=== PATIENT | male | born 1950 | race Caucasian/White ===

== ENCOUNTER → 2018-05-05 | Outpatient (REF) | payer MEDICARE, MEDICAID | LOC: M LAB REF 17:00 | DX: E11.621 Type 2 diabetes mellitus with foot ulcer (principal) | CPT/HCPCS: 87186 ==

== ENCOUNTER → 2018-08-12 | Outpatient (REF) | payer MEDICARE, MEDICAID | LOC: M LAB REF 14:47 | DX: R19.7 Diarrhea, unspecified (principal) | CPT/HCPCS: 87507 ==

== ENCOUNTER 2018-09-02 20:38 | Emergency (ER) | payer MEDICARE, MEDICAID ==
[~2018-09-02] VITALS: Ht 165.1 cm; Wt 110.0 kg
[2018-09-02] MEDS ORDERED: LYRI150C PO (21:46)
[2018-09-02] MEDS ORDERED: DULO1CAP3 PO (21:47)
[2018-09-02] MEDS ORDERED: LANTINJ4 SC (21:48)
[2018-09-02] MEDS ORDERED: OMEP20CA3 PO (21:48)
[2018-09-02 21:49] LABS: BASO % 0.4 % (0.0-1.0); EOS # 0.1 10^3/uL (0.0-0.50); EOS % 1.6 % (0.0-3.0); HEMATOCRIT 41.6 % (42.0-52.0); LYMPH # 1.4 10^3/uL (1.5-4.5); LYMPH % 19.9 % (24.0-44.0); MEAN CORPUSCULAR HEMOGLOBIN 30.5 pg (27.0-33.0); MEAN CORPUSCULAR HGB CONC 33.7 g/dl (32.0-36.5); MEAN CORPUSCULAR VOLUME 90.6 fl (80.0-96.0); MONO # 0.5 10^3/uL (0.0-0.8); MONO % 7.4 % (0.0-5.0); NEUTROPHILS # 4.9 10^3/uL (1.8-7.7); NEUTROPHILS % 70.4 % (36.0-66.0); PLATELET COUNT, AUTOMATED 164 10^3/uL (150-450); RED BLOOD COUNT 4.59 10^6/uL (4.30-6.10)
[2018-09-02] MEDS ORDERED: ZANTTAB PO (21:49)
[2018-09-02] MEDS ORDERED: BUPR1TAB52 PO (21:51)
[2018-09-02] MEDS ORDERED: METO1TAB7 PO (21:51)
[2018-09-02] MEDS ORDERED: BUPR50TA PO (21:52)
[2018-09-02] MEDS ORDERED: ESCI10TA2 PO (21:53)
[2018-09-02] MEDS ORDERED: ELIQ2.5T PO (21:53)
[2018-09-02] MEDS ORDERED: TRAM50TA2 PO (21:54)
[2018-09-02] MEDS ORDERED: FLOM0.4C39 PO (21:54)
[2018-09-02] MEDS ORDERED: AMIO200T37 PO (21:55)
[2018-09-02 22:01] LABS: INR 1.29; PARTIAL THROMBOPLASTIN TIME 30.9 SECONDS (25.4-37.6); PROTHROMBIN TIME 16.3 SECONDS (12.1-14.4)
[2018-09-02 22:31] LABS: BLOOD UREA NITROGEN 23 MG/DL (7-18); CALCIUM LEVEL 8.3 MG/DL (8.8-10.2); CARBON DIOXIDE LEVEL 26 MEQ/L (21-32); CHLORIDE LEVEL 105 MEQ/L (98-107); CPK CREATINE PHOSPHOKINASE 104 U/L (39-308); CREATININE FOR GFR 1.67 MG/DL (0.70-1.30); GLOMERULAR FILTRATION RATE 43.6 (>49); GLUCOSE, FASTING 82 MG/DL (70-100); MB/CK RELATIVE INDEX 2.69 (< OR =4); POTASSIUM SERUM 4.1 MEQ/L (3.5-5.1); SODIUM LEVEL 140 MEQ/L (136-145); TROPONIN I < 0.02 NG/ML (< 0.10)
[2018-09-02 23:04] LABS: ABG BASE EXCESS -0.4 (-2.0-2.0); ABG O2 SATURATION 95.2 % (95.0-99.0); ABG PARTIAL PRESSURE CO2 38.9 mmHg (35.0-45.0); ABG PARTIAL PRESSURE O2 73.1 mmHg (75.0-100.0); ABG STANDARD HCO3 24.1 MEQ/L (22.0-26.0); ABG TOTAL CO2 25.2 MEQ/L (23.0-31.0); ABG pH (ARTERIAL) 7.409 UNITS (7.350-7.450)
[2018-09-03] MEDS ORDERED: MORPHINE 2 MG/ML 1ML SYRINGE (J2270) IV ONE
--- NOTE | 2018-09-03 01:50 | REP ---
Clinical: Acute chest pain . Comparison: 10/10/2014 . Findings: The mediastinum and cardiac silhouette are stable and within normal limits for portable technique. The lung sevilla are clear without acute consolidation, effusion, or pneumothorax. Skeletal structures are intact. Impression: No acute cardiopulmonary process appreciated. Electronically Signed by Donnie Torrez MD 09/03/2018 01:41 A
[2018-09-03 01:51] LABS: CPK CREATINE PHOSPHOKINASE 96 U/L (39-308); TROPONIN I < 0.02 NG/ML (< 0.10)
[2018-09-03 02:15] VITALS: BP 143/77
[2018-09-03] MEDS ORDERED: traMADol 50 MG TAB (BULK 4 TAB ED) PO ONE (02:15)
--- NOTE | 2018-09-04 12:30 | ECGEPIP ---
Stationary ECG Study [facility] - ED Test Date: 2018-09-02 Pat Name: ITZ OLMOS Department: Room: - Gender: M [employer]: alejandra : 1950 Requested By: KALE CAMACHO Order Number: [id number] Reading MD: Erika Iraheta Measurements Intervals [place] Rate: 67 P: 32 MO: 209 QRS: -30 QRSD: 166 T: 29 QT: 480 QTc: 509 Interpretive Statements SINUS RHYTHM BORDERLINE LEFT AXIS DEVIATION RIGHT BUNDLE BRANCH BLOCK cw 10/10/14 rate increased new rbbb Electronically Signed On 09-04-2018 12:29:43 EST by Erika Iraheta
--- NOTE | 2018-09-04 12:32 | ECGEPIP ---
Stationary ECG Study [facility] - ED Test Date: 2018-09-03 Pat Name: ITZ OLOMS Department: Room: - Gender: M [employer]: : 1950 Requested By: KALE CAMACHO Order Number: [id number] Reading MD: Erika Iraheta Measurements Intervals [place] Rate: 72 P: 64 AR: 217 QRS: -23 QRSD: 168 T: 23 QT: 460 QTc: 507 Interpretive Statements SINUS RHYTHM WITH FIRST DEGREE AV BLOCK WITH OCCASIONAL SUPRAVENTRICULAR AR PREMATURE COMPLEXES BORDERLINE LEFT AXIS DEVIATION RIGHT BUNDLE BRANCH BLOCK 09/02/18 RATE INCREASED Electronically Signed On 09-04-2018 12:32:08 EST by Erika Iraheta
== END 2018-09-03 02:26 | disposition home or self-care (01) ==
LOC: EDBD 20:38 → M ED 20:38
DX: R07.89 Other chest pain (principal); I48.91 Unspecified atrial fibrillation; K21.9 Gastro-esophageal reflux disease without esophagitis; I10 Essential (primary) hypertension; E11.9 Type 2 diabetes mellitus without complications
CPT/HCPCS: 36600; 71045; 80048; 82550; 82553; 82803; 84484; 85025; 85610; 85730; 93005; 96374; 99285; J2270

== ENCOUNTER 2018-09-27 22:06 | Inpatient (IN) | payer MEDICARE, MEDICAID ==
[~2018-09-27] VITALS: Ht 165.1 cm; Wt 126.6 kg
[~2018-09-27 22:06] MED LIST: AMIO200T37 PO; BUPR1TAB52 PO; BUPR50TA PO; DULO1CAP3 PO; ELIQ2.5T PO; ESCI10TA2 PO; FLOM0.4C39 PO; LANTINJ4 SC; LYRI150C PO; METO1TAB7 PO; OMEP20CA3 PO; TRAM50TA2 PO; ZANTTAB PO
[2018-09-27] MEDS: MORPHINE 2 MG/ML 1ML SYRINGE (J2270) IV PRN (22:53)
[2018-09-27 22:55] LABS: BASO % 0.2 % (0.0-1.0); EOS # 0.1 10^3/uL (0.0-0.50); EOS % 1.5 % (0.0-3.0); HEMATOCRIT 42.1 % (42.0-52.0); HEMOGLOBIN 14.5 g/dl (13.5-17.5); LYMPH # 1.7 10^3/uL (1.5-4.5); LYMPH % 20.8 % (24.0-44.0); MEAN CORPUSCULAR HEMOGLOBIN 30.7 pg (27.0-33.0); MEAN CORPUSCULAR HGB CONC 34.4 g/dl (32.0-36.5); MEAN CORPUSCULAR VOLUME 89.2 fl (80.0-96.0); MONO # 0.5 10^3/uL (0.0-0.8); MONO % 6.5 % (0.0-5.0); NEUTROPHILS # 5.8 10^3/uL (1.8-7.7); NEUTROPHILS % 70.5 % (36.0-66.0); PLATELET COUNT, AUTOMATED 145 10^3/uL (150-450); RED BLOOD COUNT 4.72 10^6/uL (4.30-6.10); WHITE BLOOD COUNT 8.2 10^3/uL (4.0-10.0)
[2018-09-27 23:10] LABS: INR 1.34; PARTIAL THROMBOPLASTIN TIME 29.5 SECONDS (25.4-37.6); PROTHROMBIN TIME 16.7 SECONDS (12.1-14.4)
--- NOTE | 2018-09-27 23:26 | REPVR ---
EXAM: CT Head Without Contrast EXAM DATE/TIME: 09/27/2018 10:25 PM CLINICAL HISTORY: 67 years old, male; Injury or trauma; Fall; Additional info: Fall, anticoagulated TECHNIQUE: Axial computed tomography images of the head/brain without contrast. All CT scans at this facility use at least one of these dose optimization techniques: automated exposure control; mA and/or kV adjustment per patient size (includes targeted exams where dose is matched to clinical indication); or iterative reconstruction. COMPARISON: No relevant prior studies available. FINDINGS: Brain: There is no evidence of intracranial bleed. 5 mm low-density right thalamus probably the result of old lacunar infarct. Dunn-white differentiation appears preserved. Ventricles: Normal ventricles. Bones/joints: There is no evidence of fracture. Sinuses: Clear paranasal sinuses. Small mucus retention cyst right sphenoid sinus. Mastoid air cells: Clear mastoid air cells. Soft tissues: Normal. IMPRESSION: 1. No evidence of fracture. 2. No evidence of bleed. Electronically signed by: Indra Feliciano On 09/27/2018 23:25:43 PM
[2018-09-27 23:32] LABS: BLOOD UREA NITROGEN 27 MG/DL (7-18); CALCIUM LEVEL 8.5 MG/DL (8.8-10.2); CARBON DIOXIDE LEVEL 23 MEQ/L (21-32); CHLORIDE LEVEL 101 MEQ/L (98-107); CPK CREATINE PHOSPHOKINASE 70 U/L (39-308); CREATININE FOR GFR 1.69 MG/DL (0.70-1.30); GLUCOSE, FASTING 423 MG/DL (70-100); MB/CK RELATIVE INDEX 2.57 (< OR =4); POTASSIUM SERUM 4.3 MEQ/L (3.5-5.1); SODIUM LEVEL 136 MEQ/L (136-145); TROPONIN I < 0.02 NG/ML (< 0.10)
--- NOTE | 2018-09-27 23:32 | REPVR ---
EXAM: CT Cervical Spine Without Contrast EXAM DATE/TIME: 09/27/2018 10:25 PM CLINICAL HISTORY: 67 years old, male; Injury or trauma; Fall; Initial encounter; Concussion /head injury; Additional info: Fall, anticoagulated TECHNIQUE: Axial computed tomography images of the cervical spine without intravenous contrast. All CT scans at this facility use at least one of these dose optimization techniques: automated exposure control; mA and/or kV adjustment per patient size (includes targeted exams where dose is matched to clinical indication); or iterative reconstruction. Coronal and sagittal reformatted images were created and reviewed. COMPARISON: No relevant prior studies available. FINDINGS: Vertebrae: The cervical vertebra appear in alignment. The facet joints appear in alignment. There is no evidence of fracture. The dens appears intact and the lateral masses of C1 appear symmetric. There is scoliosis at the junction of the cervical spine with thoracic spine. There is no evidence of fracture. Discs/Spinal canal/Neural foramina: Is moderate posterior osteophyte formation and moderate narrowing of the disc spaces C4-C5 C5-C6 and C6-C7. Soft tissues: No soft tissue swelling. Lungs: Clear apical portions of the lung. IMPRESSION: No evidence of fracture. Electronically signed by: Indra Feliciano On 09/27/2018 23:32:01 PM
[2018-09-27] MEDS ORDERED: HumaLOG INSULIN (NovoLOG) PER UNIT SC STA (23:54)
[2018-09-28] VITALS (7 sets, daily range): BP systolic 92–140; BP diastolic 57–73
[2018-09-28] MEDS ORDERED: ELIQ2.5T PO (00:32)
[2018-09-28] MEDS ORDERED: DULO1CAP3 PO (00:32)
[2018-09-28] MEDS ORDERED: LYRI150C PO (00:36)
[2018-09-28] MEDS ORDERED: VITA100066 PO (00:36)
[2018-09-28] MEDS ORDERED: MAGN250T7 PO (00:36)
[2018-09-28] MEDS ORDERED: ESCI20TA PO (00:36)
[2018-09-28] MEDS ORDERED: BUPR1TAB52 PO (00:36)
[2018-09-28] MEDS ORDERED: RANI15TA PO (00:36)
[2018-09-28] MEDS ORDERED: FLOM0.4C39 PO (00:36)
[2018-09-28] MEDS ORDERED: VICT18IN SC (00:36)
[2018-09-28] MEDS ORDERED: LANTINJ4 SC (00:36)
[2018-09-28] MEDS ORDERED: AMIO200T PO (00:36)
[2018-09-28] MEDS ORDERED: OMEP20CA3 PO (00:36)
[2018-09-28] MEDS ORDERED: METO1TAB33 PO (00:36)
[2018-09-28] MEDS ORDERED: TRAM50TA2 PO (00:36)
[2018-09-28] MEDS ORDERED: ACETAMINOPHEN TAB 650MG DOSE (2X325MG) PO PRN (00:45)
[2018-09-28] MEDS: MORPHINE 2 MG/ML 1ML SYRINGE (J2270) IV PRN (01:06)
[2018-09-28] MEDS ORDERED: MORPHINE 4 MG/ML 1ML VIAL/SYRINGE (J2270) IV PRN (01:30)
--- NOTE | 2018-09-28 01:35 | HPEPDOC ---
[facility] Medical History & Physical Date of Admission Sep 28, 2018 Other Provider Dictating/admitting: Hallie Jane M.D. Attending Physician: ROZ COTE MD History and Physical CHIEF COMPLAINT: Fall 1 day HISTORY OF PRESENT ILLNESS: Patient is a 67-year-old man with medical history significant for diabetes, hypertension, hyperlipidemia, CAD status post PCI 2000, GERD and CHF. Patient reports being in his usual state of health until this evening while visiting his at her multiple his slipped and fell about in his right hip to the ground. He subsequently felt pain and unable to rise from his front position. Hence activated EMS and presented to the emergency room. Daughter was at bedside during interview and she reported second time that he is having fall incidents. He denies any dizziness, blurry visions. He denies any chest pain, palpitations, no fevers, no chills. No cough, no shortness of breath but he is been having episodes of unsteady gait and falls. He was seen at bedside with dry heaves but no history of vomiting. No change in his bowel or urinary habits. She was evaluated in the emergency room with imaging revealing right intertrochanteric femoral fracture. His chest x-ray reveals cardiomegaly but no acute chest findings. Dr. Chin will see patient on consult. PAST MEDICAL HISTORY: Per HPI PAST SURGICAL HISTORY: 1. Cholecystectomy. 2. CAD with stent placement 2000. SOCIAL HISTORY: Quit smoking over 13 years. Denies alcohol use. Denies illicit drug use. FAMILY HISTORY: Father: at age 60 suspicious internal bleeding Mother: age 59 from brain cancer Siblings: Brother is Children: 2 sons and 2 daughters. One of his sons with COPD and skin cancer ALLERGIES: Please see below. REVIEW OF SYSTEMS: 12 point review of systems negative other than that described in the body of HPI. HOME MEDICATIONS: Please see below. PHYSICAL EXAMINATION: VITAL SIGNS: Temperature 96.9, pulse 56, respiratory rate 18, blood pressure 168/79, pulse oximetry 98% on room air. GENERAL APPEARANCE: Obese elderly man, lying calmly in bed, not in mild painful distress. He is not pale, anicteric and afebrile HEENT: Atraumatic. Neck: Supple. LUNGS: Clear to auscultation bilaterally. CARDIOVASCULAR: S1 and 2 heard, no murmurs, rubs or gallops. ABDOMEN: Obese, soft, not tender, not distended. Bowel sounds normoactive. MUSCULOSKELETAL: Reduced range of motion right hip. EXTREMITIES: No pedal edema, 2+ bilateral pedal pulses noted. NEUROLOGICAL: Awake, alert, oriented 3. PSYCHIATRIC: Normal affect LABORATORY DATA: See below. IMAGING: Chest x-ray: Cardiomegaly, no acute pulmonary disease. X-ray right hip: Intertrochanteric fracture of neck of femur. CT cervical spine: No evidence of fracture. CT head without contrast: no evidence of fracture. No evidence of bleed. EKG: Sinus rhythm with heart rate 55. Right bundle branch block and possible first-degree AV block. MICROBIOLOGY: Please see below. ASSESSMENT: 67-year-old man. He has history of diabetes, hypertension, hyperlipidemia, CAD status post PCI in 2000, GERD, CHF. He is status post mechanical fall. Exam consistent with limited range of motion in the right hip. Imaging reveals right intertrochanteric fracture of the right femoral neck. DIAGNOSES: 1. Mechanical fall. 2. Right hip fracture . PLAN: 1. We'll admit patient to medical floor with remote telemetry under care of Dr. Cote. 2. Right hip fracture. Orthopedic consult placed. We'll ensure adequate pain control, gentle fluid resuscitation normal saline to run at 50 mils per hour. I would also consult cardiology for further risk assessment. Patient is high risk for moderate risk procedure. 3. CHF evaluate fluid needs in the morning. 4. Diabetes. We'll place patient on sliding scale insulin, ADA diet. 5. Eliquis held for the next 1-2 days prior to surgery. 6. DVT prophylaxis, TEDs. 7. GI prophylaxis. Pantoprazole. 8. Further treatment will be per patient's clinical course. Vital Signs Vital Signs Date Time Temp Pulse Resp B/P (MAP) Pulse Ox O2 Delivery O2 Flow Rate FiO2 09/27/18 22:53 18 97 09/27/18 22:45 56 168/79 (108) 09/27/18 22:17 96.9 Room Air Laboratory Data Labs 24H Laboratory Tests 2 09/27/18 22:48: Immature Granulocyte % (Auto) 0.5, White Blood Count 8.2, Red Blood Count 4.72, Hemoglobin 14.5, Hematocrit 42.1, Mean Corpuscular Volume 89.2, Mean Corpuscular Hemoglobin 30.7, Mean Corpuscular Hemoglobin Concent 34.4, Red Cell Distribution Width 12.8, Platelet Count 145L, Neutrophils (%) (Auto) 70.5H, Lymphocytes (%) (Auto) 20.8L, Monocytes (%) (Auto) 6.5H, Eosinophils (%) (Auto) 1.5, Basophils (%) (Auto) 0.2, Neutrophils # (Auto) 5.8, Lymphocytes # (Auto) 1.7, Monocytes # (Auto) 0.5, Eosinophils # (Auto) 0.1, Basophils # (Auto) 0.0, Nucleated Red Blood Cells % (auto) 0.0, Prothrombin Time 16.7H, Prothromb Time International Ratio 1.34, Activated Partial Thromboplast Time 29.5, Anion Gap 12, Glomerular Filtration Rate 43.0L, Blood Urea Nitrogen 27H, Creatinine 1.69H, Sodium Level 136, Potassium Level 4.3, Chloride Level 101, Carbon Dioxide Level 23, Calcium Level 8.5L, Total Creatine Kinase 70, Creatine Kinase MB 2.0, Creatine Kinase MB Relative Index 2.57, Troponin I < 0.02 CBC/BMP Laboratory Tests 09/27/18 22:48 Red Blood Count 4.72, Mean Corpuscular Volume 89.2, Mean Corpuscular Hemoglobin 30.7, Mean Corpuscular Hemoglobin Concent 34.4, Red Cell Distribution Width 12.8, Neutrophils (%) (Auto) 70.5 H, Lymphocytes (%) (Auto) 20.8 L, Monocytes (%) (Auto) 6.5 H, Eosinophils (%) (Auto) 1.5, Basophils (%) (Auto) 0.2, Neutrophils # (Auto) 5.8, Lymphocytes # (Auto) 1.7, Monocytes # (Auto) 0.5, Eosinophils # (Auto) 0.1, Basophils # (Auto) 0.0, Calcium Level 8.5 L, Total Creatine Kinase 70 Home Medications Scheduled Amiodarone HCl (Amiodarone HCl) 200 Mg Tab, 200 MG PO BID Apixaban Base (Eliquis) 2.5 Mg Tab, 2.5 MG PO BID Bupropion HCl (Bupropion HCl ER) 100 Mg Tab, 100 MG PO DAILY Cholecalciferol (Vitamin D) 1,000 Unit Tab, 1,000 UNIT PO DAILY Escitalopram Oxalate (Escitalopram Oxalate) 20 Mg Tab, 20 MG PO DAILY Insulin Glargine (Lantus Solostar) 100 Unit/Ml Inj, 45 UNITS SC DAILY Magnesium (Magnesium) 250 Mg Tab, 250 MG PO DAILY Metoprolol Succinate (Metoprolol Succinate ER) 100 Mg Tab, 100 MG PO DAILY Omeprazole (Omeprazole) 20 Mg Cap, 20 MG PO DAILY Pregabalin (Lyrica) 150 Mg Cap, 150 MG PO BID Ranitidine Hcl (Zantac) 150 Mg Tab, 1 TAB PO BID Tamsulosin Hydrochloride (Flomax) 0.4 Mg Cap, 1 CAP PO DAILY Scheduled PRN Tramadol HCl (Tramadol HCl) 50 Mg Tab, 50 MG PO BID PRN for PAIN Allergies Coded Allergies: Penicillins (Verified Allergy, Unknown, 01/07/14) HALLIE JANE MD Sep 28, 2018 00:32
[2018-09-28] MEDS: NS 1,000 ML IV SCH ×2 (01:40→21:19)
--- NOTE | 2018-09-28 01:58 | REP ---
Clinical: Trauma/fall. Technique: AP and cross-table lateral views of the right femur. Findings: Intertrochanteric fracture of the right femur. Overlying soft tissue swelling. No other fracture dislocation appreciated. Impression: Intertrochanteric fracture of the right femur. Electronically Signed by Donnie Torrez MD 09/28/2018 01:50 A
--- NOTE | 2018-09-28 02:05 | REP ---
Clinical: Trauma. Technique: AP, lateral, bilateral oblique and sunrise views right knee . Findings: Early-moderate tricompartmental degenerative changes include subtle spurring, cortical irregularity subchondral sclerosis and minimal joint space narrowing. No joint effusion is appreciated. Surrounding soft tissues are unremarkable. No subcutaneous emphysema or radiodense foreign body. Impression: Early-moderate arthritic changes. No acute fracture or dislocation. Electronically Signed by Donnie Torrez MD 09/28/2018 01:56 A
--- NOTE | 2018-09-28 02:08 | REP ---
Clinical: Trauma. Hip fracture. . Comparison: 09/02/2018 . Findings: The mediastinum and cardiac silhouette are stable and within normal limits for portable technique. The lung sevilla are clear without acute consolidation, effusion, or pneumothorax. Skeletal structures are intact. Impression: No acute cardiopulmonary process appreciated. Electronically Signed by Donnie Torrez MD 09/28/2018 01:59 A
--- NOTE | 2018-09-28 02:09 | REP ---
Clinical: Trauma/fall. Technique: AP view of the pelvis with neutral and cross-table lateral views of the right hip. Findings: Intertrochanteric fracture of the right proximal femur with overlying soft tissue swelling noted. The remainder of the pelvis/hips demonstrate age-related changes without further acute fracture or dislocation. Impression: Intertrochanteric fracture of the right hip with overlying swelling. Electronically Signed by Donnie Torrez MD 09/28/2018 02:01 A
[2018-09-28] MEDS ORDERED: GLUCOSE 4 GM CHEW TABLET PO PRN (03:45)
[2018-09-28] MEDS ORDERED: DEXTROSE 50% 50 ML SYRINGE IV PRN (03:45)
[2018-09-28] MEDS ORDERED: GLUCAGON FOR INJ 1 MG VIAL (J1610) SC PRN (03:45)
[2018-09-28] MEDS: MORPHINE 4 MG/ML 1ML VIAL/SYRINGE (J2270) IV PRN ×4 (03:49→18:15)
[2018-09-28 08:18] LABS: HEMATOCRIT 38.8 % (42.0-52.0); MEAN CORPUSCULAR HEMOGLOBIN 30.8 pg (27.0-33.0); MEAN CORPUSCULAR HGB CONC 33.5 g/dl (32.0-36.5); MEAN CORPUSCULAR VOLUME 91.9 fl (80.0-96.0); PLATELET COUNT, AUTOMATED 130 10^3/uL (150-450); RED BLOOD COUNT 4.22 10^6/uL (4.30-6.10); WHITE BLOOD COUNT 10.2 10^3/uL (4.0-10.0)
[2018-09-28 08:33] LABS: INR 1.41; PROTHROMBIN TIME 17.5 SECONDS (12.1-14.4)
[2018-09-28] MEDS: PANTOPRAZOLE 40MG INJ (PROTONIX) (C9113) IV SCH (08:36)
[2018-09-28] MEDS: ESCITALOPRAM OXALATE 10 MG TAB (LEXAPRO) PO SCH (08:37)
[2018-09-28] MEDS: PREGABALIN 75 MG CAP(LYRICA) PO SCH ×2 (08:37→21:19)
[2018-09-28] MEDS: TAMSULOSIN 0.4 MG CAP PO SCH (08:37)
[2018-09-28] MEDS: FAMOTIDINE 20 MG TAB PO SCH (08:37)
[2018-09-28] MEDS: VITAMIN D 1,000 INTERNATIONAL UNITS TABLET PO SCH (08:37)
[2018-09-28] MEDS: METOPROLOL SUCC (TopROL XL) 100MG *XL* TAB PO SCH (08:37)
[2018-09-28] MEDS: OMEPRAZOLE 20 MG CAP PO SCH (08:37)
[2018-09-28] MEDS: AMIODARONE 200 MG TAB (PACERONE) PO SCH ×2 (08:37→23:20)
[2018-09-28] MEDS: LEVEMIR (INSULIN DETEMIR) 1 UNITS/0.01ML SC SCH (08:38)
[2018-09-28] MEDS: HumaLOG INSULIN (NovoLOG) PER UNIT SC SCH ×4 (08:39→21:20)
[2018-09-28 08:40] LABS: CREATININE FOR GFR 1.85 MG/DL (0.70-1.30); GLOMERULAR FILTRATION RATE 38.8 (>49)
[2018-09-28] MEDS: buPROPion (WELLBUTRIN SR) 100 MG SR TAB PO SCH (09:00)
[2018-09-28] MEDS: PERCOCET 5MG/325MG TAB PO PRN (12:27)
--- NOTE | 2018-09-28 14:23 | IPNPDOC ---
Date Seen The patient was seen on 09/28/18. Progress Note SUBJECTIVE: Patient is a 67-year-old male with mechanical fall resulting in right intertrochanteric femur fracture. Patient is evaluated at bedside this morning. He states that he was at his daughter's home visiting when he went to open a door and fell forward landing on his right hip. He denies loss of consciousness, urinary incontinence, head trauma. He admits to fecal soiling. Is able to recall the entire event. Uses a rolling walker with a seat, but does not use a cane or a wheelchair. States he feels weak in his lower extremities bilaterally. No current chest pain, shortness of breath, fever, night sweats, chills, nausea, vomiting, abdominal pain. Has a history of stroke and cardiac stenting from 2000. Had one cardiac stent placed. Has some residual left sided weakness due to the stroke. Most recent appointment with country singer, Dr. Johnson, was on 09/16/2018 stating that "everything is okay." Recently diagnosed with atrial fibrillation in the last 5-6 weeks. Unsure of etiology of atrial fibrillation. No episodes of bleeding currently. Admitted to some dizziness and lightheadedness associated with beta-diana usage. According to patient this was adjusted. Patient is able ascend and descend a flight of stairs, walk around the grocery store at his own pace (but does report shortness of breath with moderate distances), has no urinary difficulties, has a very remote tobacco history. Is not aware of any breathing conditions. Has not had open heart surgery. Has previously undergone surgery requiring anesthesia and has never had difficulties. OBJECTIVE PHYSICAL EXAMINATION: VITAL SIGNS: Please see below. GENERAL: Well nourished, well developed male, alert and conversant, appropriately dressed in hospital attire, answers questions appropriately, no acute distress, uncomfortable. HEENT: Atraumatic, normocephalic, PERRL, EOMI, oral mucosa appears pink and moist, Mallampati class III, dentition is in poor condition, no lymphadenopathy, trachea midline, no thyromegaly. CARDIOVASCULAR: Irregularly irregular heart rate and rhythm, variable S1 and S2, no murmur, rub, click. RESPIRATORY: Clear to auscultation bilaterally, adequate inspiratory and expiratory airway excursion, symmetric airway entry, no focal consolidations, no wheeze, rhonchi, crackles. ABDOMINAL: Round, soft, non-tender, non-distended, bowel sounds appreciated throughout, no organomegaly, no rebound, no guarding. EXTREMITIES: Right lower extremity is externally rotated, peripheral pulses are equal and symmetrical, no peripheral edema, callus noted on left hallux. NEUROLOGICAL: 5-/5 in left upper and lower extremity, strength not tested in right lower extremity due to fracture. PSYCHOLOGICAL: Mood and affect appropriate. LABORATORY DATA, IMAGING STUDIES, MICROBIOLOGY: Please see below. Echocardiogram: Completed. DVT prophylaxis ordered?: TEDs; no pharmacological anticoagulation pending orthopedic surgery. ASSESSMENT AND PLAN: This is a 67-year-old male with mechanical fall resulting in right intertrochanteric femur fracture. PROBLEMS: 1. Mechanical fall resulting in right intertrochanteric femur fracture: Orthopedics consulted. Likely spinal anesthesia unless indication for general anesthesia. Last dose of anticoagulation was last evening, 09/27/2018. Will need to be off anticoagulation for 72 hours if spinal anesthesia will be administered. Continue beta-diana therapy. Resumption of anticoagulation per orthopedics. Pain management per orthopedics. Currently on Percocet and Morphine. EKG completed by Emergency Department. Nothing by mouth after midnight. Gill perioperative risk is "1.2% risk for myocardial infarction or cardiac arrest, intraoperatively or up to 30 days post-op." Revised cardiac risk index is 3 points which [address] patient as a class IV risk with 11% risk of major cardiac event. Ordered is a one-time dose of Clindamycin pre-operatively. Cardiology has been consulted. 2. Recent diagnosis of atrial fibrillation: Cardiology consulted. If spinal anesthesia, will need to be off anticoagulation for 72 hours. Eliquis on hold. Resumption deferred to orthopedics. Continue beta-diana pre- and post- operatively. Hold Amiodarone morning of surgery. Resume status-post surgery. Echocardiogram obtained. Requesting records from Dr. Johnson. 3. Diabetes mellitus with hyperglycemia and neuropathy: Continue long-acting insulin 45 units subcutaneously daily. Will give half-dose morning of surgery. Okay to resume full-dose long-acting insulin once tolerating oral diet. Bolus insulin for coverage. Fingersticks before meals and at bedtime. Prior to surgery, will adjust fingersticks to every 6 hours. Hypoglycemic protocol. Consistent carbohydrate diet. Continue Lyrica. Hold morning of surgery. Continue post-operatively. 4. Depression: Continue Lexapro. Hold morning of surgery. Okay to continue post-operatively. 5. Gastroesophageal reflux disease: Continue Famotidine and Omeprazole. Hold morning of surgery. Okay to resume post-operatively. 6. Benign prostatic hyperplasia: Continue Flomax. Hold morning of surgery. Okay to resume post-operatively. 7. Chronic pain: Continue Tramadol. Hold morning of surgery. Okay to resume post-operatively. 8. Coronary artery disease status-post cardiac stenting: Follows with Dr. Johnson. Status-post stenting in 2000. 9. History of TIA/CVA: Residual left-sided weakness. Monitor. 10. Chronic kidney disease: Baseline creatinine appears to be around 1.6. Providing gentle fluid resuscitation at 50 mLs/hr. DISPOSITION: Cardiology consulted. Orthopedics consulted. Pending vicenta- operative optimization prior to surgical intervention. VS, I&O, 24H, Fishbone Vital Signs/I&O Vital Signs Date Time Temp Pulse Resp B/P (MAP) Pulse Ox O2 Delivery O2 Flow Rate FiO2 09/28/18 10:40 18 09/28/18 08:37 66 137/73 09/28/18 06:00 98.1 99 Room Air I&O- Last 24 Hours up to 6 AM 09/28/18 06:00 Intake Total 120 ml Balance 120 ml Laboratory Data 24H LABS Laboratory Tests 2 09/27/18 22:48: Immature Granulocyte % (Auto) 0.5, White Blood Count 8.2, Red Blood Count 4.72, Hemoglobin 14.5, Hematocrit 42.1, Mean Corpuscular Volume 89.2, Mean Corpuscular Hemoglobin 30.7, Mean Corpuscular Hemoglobin Concent 34.4, Red Cell Distribution Width 12.8, Platelet Count 145L, Neutrophils (%) (Auto) 70.5H, Lymphocytes (%) (Auto) 20.8L, Monocytes (%) (Auto) 6.5H, Eosinophils (%) (Auto) 1.5, Basophils (%) (Auto) 0.2, Neutrophils # (Auto) 5.8, Lymphocytes # (Auto) 1.7, Monocytes # (Auto) 0.5, Eosinophils # (Auto) 0.1, Basophils # (Auto) 0.0, Nucleated Red Blood Cells % (auto) 0.0, Prothrombin Time 16.7H, Prothromb Time International Ratio 1.34, Activated Partial Thromboplast Time 29.5, Anion Gap 12, Glomerular Filtration Rate 43.0L, Blood Urea Nitrogen 27H, Creatinine 1.69H, Sodium Level 136, Potassium Level 4.3, Chloride Level 101, Carbon Dioxide Level 23, Calcium Level 8.5L, Total Creatine Kinase 70, Creatine Kinase MB 2.0, Creatine Kinase MB Relative Index 2.57, Troponin I < 0.02 09/28/18 07:49: Nucleated Red Blood Cells % (auto) 0.0, Prothrombin Time 17.5H, Prothromb Time International Ratio 1.41, Anion Gap 9, Glomerular Filtration Rate 38.8L, Blood Urea Nitrogen 31H, Creatinine 1.85H, Sodium Level 135L, Potassium Level 4.0, Chloride Level 101, Carbon Dioxide Level 25, Calcium Level 8.0L 09/28/18 08:18: Bedside Glucose (Misc Panel) 267H CBC/BMP Laboratory Tests 09/27/18 22:48 Red Blood Count 4.72, Mean Corpuscular Volume 89.2, Mean Corpuscular Hemoglobin 30.7, Mean Corpuscular Hemoglobin Concent 34.4, Red Cell Distribution Width 12.8, Neutrophils (%) (Auto) 70.5 H, Lymphocytes (%) (Auto) 20.8 L, Monocytes (%) (Auto) 6.5 H, Eosinophils (%) (Auto) 1.5, Basophils (%) (Auto) 0.2, Neutrophils # (Auto) 5.8, Lymphocytes # (Auto) 1.7, Monocytes # (Auto) 0.5, Eosinophils # (Auto) 0.1, Basophils # (Auto) 0.0, Calcium Level 8.5 L, Total Creatine Kinase 70 09/28/18 07:49 Red Blood Count 4.22 L, Mean Corpuscular Volume 91.9, Mean Corpuscular He moglobin 30.8, Mean Corpuscular Hemoglobin Concent 33.5, Red Cell Distribution Width 13.1, Calcium Level 8.0 L ELBERT SAM DO Sep 28, 2018 11:48
--- NOTE | 2018-09-28 15:07 | ECHO ---
DATE OF PROCEDURE: 09/28/2018 DATE OF : 1950 AGE: 67 GENDER: Male HEIGHT: 65 inches WEIGHT: 242 pounds BODY SURFACE AREA: 2.15 meters squared INPATIENT: [address] [place] [address], room 4226. REFERRING PHYSICIAN: Dr. Glen Oviedo INDICATION: Abnormal EKG. Preoperative study. MEASUREMENTS: 2-D Measurements: RV: 3.7 cm LV: 5.4 cm Septum: 1.2 cm Posterior wall: 1.2 cm Aortic root: 4.0 cm Aortic arch: 3.7 cm LA: 4.0 cm LVEF: 65% Doppler Measurements: AV: 1.2 m/s LVOT: 0.94 m/s LVOT: 2.3 cm MV: E: 72, A: 84, EA ratio: 0.9 Early mitral deceleration time: 208 ms E prime: 4.5, A prime: 8.6, E/E prime ratio: 16 PCWP: 18 mmHg PV: 0.8 m/s Pulmonary artery acceleration time: 88 ms RVSP: 39 mmHg IVC: 2.2 cm COMMENTS: Normal sinus rhythm with intraventricular conduction disturbance. Technically challenging study in light of the patient's body habitus but diagnostically useful information was still obtained. Borderline concentric left ventricle hypertrophy with preserved systolic function. Mildly dilated left atrium with impairment of LV diastolic function and at least mildly elevated mean left atrial pressure. Normal right heart chamber sizes and motion with mild pulmonary hypertension. Normal IVC size and collapse against an elevated central venous pressure. Normal appearing and functioning aortic valve. Mildly dilated aortic root, ascending aorta and aortic arch. Moderate mitral annular calcification without inflow tract obstruction and only marginal insufficiency. Normal appearing tricuspid valve with trace to very mild insufficiency. No apparent intracardiac mass or pericardial effusion. Edited: 09/28/2018 [id number] [facility] MTDD
--- NOTE | 2018-09-28 16:47 | CR ---
DATE OF CONSULTATION: 09/28/2018 INDICATION: Right femur fracture. HISTORY OF PRESENT ILLNESS: Jose is a 67-year-old gentleman with multiple medical problems who sustained a mechanical fall on 09/27/2018. He was brought to [facility] Emergency Room (ER) where x-rays revealed a mild to moderately displaced intertrochanteric fracture. He was admitted to the hospitalist service for optimization. Orthopedics was consulted for management of the fracture. Patient is reporting pain in his right hip, femur, and knee. He has baseline neuropathy from diabetes. He is on Eliquis and has some chronic renal insufficiency. He uses a walker about half the time and a cane half the time for ambulation. For the patient's full past medical history, past surgical history, medications, allergies, social history and review of systems, please see the admitting hospitalist history and physical (H and P). PHYSICAL EXAMINATION: Reveals an elderly gentleman, in no distress. He is alert and times three. Neurologic: Appropriate mood, pleasant affect. Pulmonary: Nonlabored breathing. Skin at the right knee has a very mild abrasion anteriorly. Otherwise the skin appears intact. Musculoskeletal: The patient can wiggle his toes. His right leg is shortened and externally rotated. X-RAYS: AP pelvis, two views of the hip, femur and knee were obtained and available for my review. There is a moderately displaced three-part intertrochanteric femur fracture. There is extensive vascular calcification. I do not appreciate any concerning bony lesions in the femur. I do not appreciate any fractures at the knee. ASSESSMENT/PLAN: Jose is a 67-year-old gentleman with a displaced right intertrochanteric femur fracture. He will be on bedrest until surgery. We discussed operative and nonoperative treatment. I recommend surgery. This would likely be with a cephalomedullary nail. I explained to the patient and family that one of my partners will be performing the surgery and that we need to wait 48 hours until he has been off the Eliquis, he last took it around 9 p.m. Thursday night, so this will probably mean his surgery is some time on . He is getting a cardiac evaluation and will otherwise be medically optimized. Blood sugars were quite high so will give an extra day to work on those as well. Will try to get the patient into Portillo's traction to make him more comfortable with that right leg.
--- NOTE | 2018-09-28 19:52 | ECGEPIP ---
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
[2018-09-28] MEDS ORDERED: NS 500 ML IV ONE ×2 (21:45)
[2018-09-29] MEDS ORDERED: NALOXONE INJ 0.4 MG/1 ML VIAL (J2310) IV STA (00:33)
--- NOTE | 2018-09-29 01:50 | REPVR ---
EXAM: XR Chest, 1 View EXAM DATE/TIME: 09/29/18 (12:58am) CLINICAL HISTORY: 67 year old male. AMS. Recent hip fracture. TECHNIQUE: Portable CXR, 1 view COMPARISON: Frontal CXR of 09/27/18 (at 11:24pm) FINDINGS: No focal infiltrates and no pleural effusions. Stable cardiomegaly, with left ventricular prominence. No gross cardiac failure. Faint linear stranding at the left lung base (probable atelectasis). No pneumothorax. IMPRESSION: No significant chest pathology. No focal infiltrates and no pleural effusions. Electronically signed by: Griselda Aguilar On 09/29/2018 01:50:05 AM
--- NOTE | 2018-09-29 01:58 | REPVR ---
EXAM: CT Head Without Contrast EXAM DATE/TIME: 09/29/18 (12:37am) CLINICAL HISTORY: 67 year old male. Altered mental status / memory loss. Confusion. TECHNIQUE: Axial computed tomography images of the head without contrast. All CT scans at this facility use at least one of these dose optimization techniques: automated exposure control; mA and/or kV adjustment per patient size (includes targeted exams where dose is matched to clinical indication); or iterative reconstruction. COMPARISON: CT HEAD of 09/27/18 FINDINGS: Brain: No acute hemorrhage. No cerebral edema. Age-appropriate atrophic changes. Ventricles: Normal. No ventriculomegaly. Bones/joints: Normal. No acute fracture. Sinuses: Normal as visualized. No acute sinusitis. Mastoid air cells: Normal as visualized. No mastoid effusion. Soft tissues: Normal. IMPRESSION: No acute intracranial pathology is appreciated. Atrophic changes. A similar appearance was noted 2 days earlier. Electronically signed by: Griselda Aguilar On 09/29/2018 01:58:33 AM
[2018-09-29 03:29] VITALS: BP 115/61
[2018-09-29 03:40] LABS: APPEARANCE, URINE CLEAR (CLEAR); BACTERIA, URINE AUTO NEGATIVE (NEGATIVE); BILIRUBIN, URINE AUTO NEGATIVE (NEGATIVE); BLOOD, URINE BLOOD 3+ (NEGATIVE); COLOR, URINE YELLOW (YELLOW); GLUCOSE, URINE (UA) AUTO NEGATIVE (NEGATIVE); KETONE, URINE AUTO NEGATIVE (NEGATIVE); LEUKOCYTE ESTERASE, URINE AUTO NEGATIVE (NEGATIVE); MUCUS, URINE SMALL (NEGATIVE); NITRITE, URINE AUTO NEGATIVE (NEGATIVE); PROTEIN, URINE AUTO 1+ mg/dL (NEGATIVE); RBC, URINE AUTO 101 /HPF (0-3); SPECIFIC GRAVITY URINE AUTO 1.015 (1.002-1.035); SQUAMOUS EPITHELIAL CELL UR AU 0 /HPF (0-6); UROBILINOGEN, URINE AUTO 0.2 mg/dL (0.0-2.0); WBC, URINE AUTO 5 /HPF (0-3)
--- NOTE | 2018-09-29 05:11 | IPNPDOC ---
Date Seen The patient was seen on 09/29/18. Progress Note I was called at bedside last night because the patient had a change of mentation and pressures systolic was 92 which was lowest the patient has been since admission. I evaluated the patient who appeared slightly dry on exam and slightly lethargic. Urine in Hdez appeared dark and angela with a total of 300ml since admission. There was focal neuro deficit appreciated. Night time Lyrica held and Fluids were ordered: NS 500mls were boluses, then 500mls [id number]. EKG at bedside showed no changed since admission. HR continues to stay in the 50s. Once the fluids were completed, the patient mentation improved slightly for he was more easily arousable but not back to baseline. Last morphine 2mg was 6pm and Percocet was 12pm. 0.1mg IV narcanX1 was then ordered but there was no change in mentation, UA, repeat head CT, and portable chest X-Ray to make sure there was no underlying UTI, pneumonia or subdural bleed 2/2 to his mechanical fall. Imaging and UA were negative and when patient returned back to room from CT his mentation improved AAOX3. Fluids were then reduced back to 50mls/hr. VS, I&O, 24H, [facility] Vital Signs/I&O Vital Signs Date Time Temp Pulse Resp B/P (MAP) Pulse Ox O2 Delivery O2 Flow Rate FiO2 09/29/18 03:29 58 115/61 (79) 09/28/18 21:20 97.7 16 94 Nasal Cannula 2.0 I&O- Last 24 Hours up to 6 AM 09/29/18 05:59 Intake Total 2440 ml Output Total 300 ml Balance 2140 ml Laboratory Data 24H LABS Laboratory Tests 2 09/28/18 07:49: Nucleated Red Blood Cells % (auto) 0.0, Prothrombin Time 17.5H, Prothromb Time International Ratio 1.41, Anion Gap 9, Glomerular Filtration Rate 38.8L, Blood Urea Nitrogen 31H, Creatinine 1.85H, Sodium Level 135L, Potassium Level 4.0, Chloride Level 101, Carbon Dioxide Level 25, Calcium Level 8.0L 09/28/18 08:18: Bedside Glucose (Misc Panel) 267H 09/28/18 12:21: Bedside Glucose (Misc Panel) 204H 09/28/18 16:58: Bedside Glucose (Misc Panel) 144H 09/28/18 20:33: Bedside Glucose (Misc Panel) 129H 09/29/18 03:25: Urine Appearance CLEAR, Urine Color YELLOW, Urine pH 5.0, Urine Specific [place] 1.015, Urine Protein 1+H, Urine Glucose (UA) NEGATIVE, Urine Ketones NEGATIVE, Urine Urobilinogen 0.2, Urine Bilirubin NEGATIVE, Urine Leukocyte Esterase NEGATIVE, Urine Blood 3+H, Urine Nitrite NEGATIVE, Urine WBC (Auto) 5H, Urine RBC (Auto) 101H, Urine Hyaline Casts (Auto) 4, Urine Bacteria (Auto) NEGATIVE, Urine Squamous Epithelial Cells 0, Urine Mucus (Auto) SMALL, Urine Sperm (Auto) CBC/BMP Laboratory Tests 09/28/18 07:49 Red Blood Count 4.22 L, Mean Corpuscular Volume 91.9, Mean Corpuscular Hemoglobin 30.8, Mean Corpuscular Hemoglobin Concent 33.5, Red Cell Distribution Width 13.1, Calcium Level 8.0 L GME ATTESTATION GME ATTESTATION My faculty preceptor for this patient encounter was physically present during the encounter and was fully available. All aspects of the patient interview, examination, medical decision making process, and medical care plan development were reviewed and approved by the faculty preceptor. The faculty preceptor is aware and concurs with the plan as stated in the body of this note and will attest to such by his/her cosignature. ANA SIMPSON DO Sep 29, 2018 05:11
[2018-09-29 06:00] VITALS: BP 120/60
[2018-09-29] MEDS ORDERED: CLINDAMYCIN 600 MG in APPROPRIATE DILUENT 1 EA IV ONE (06:00)
[2018-09-29 06:29] LABS: BASO % 0.3 % (0.0-1.0); EOS # 0.1 10^3/uL (0.0-0.50); EOS % 1.4 % (0.0-3.0); HEMATOCRIT 36.8 % (42.0-52.0); HEMOGLOBIN 12.3 g/dl (13.5-17.5); LYMPH # 1.7 10^3/uL (1.5-4.5); LYMPH % 17.9 % (24.0-44.0); MEAN CORPUSCULAR HEMOGLOBIN 31.2 pg (27.0-33.0); MEAN CORPUSCULAR HGB CONC 33.4 g/dl (32.0-36.5); MEAN CORPUSCULAR VOLUME 93.4 fl (80.0-96.0); MONO # 0.7 10^3/uL (0.0-0.8); MONO % 7.4 % (0.0-5.0); NEUTROPHILS # 6.9 10^3/uL (1.8-7.7); NEUTROPHILS % 72.4 % (36.0-66.0); PLATELET COUNT, AUTOMATED 108 10^3/uL (150-450); RED BLOOD COUNT 3.94 10^6/uL (4.30-6.10); WHITE BLOOD COUNT 9.5 10^3/uL (4.0-10.0)
[2018-09-29 06:53] LABS: ALBUMIN 2.4 GM/DL (3.2-5.2); BILIRUBIN,TOTAL 0.5 MG/DL (0.2-1.0); CALCIUM LEVEL 7.8 MG/DL (8.8-10.2); CREATININE FOR GFR 2.29 MG/DL (0.70-1.30); GLOMERULAR FILTRATION RATE 30.3 (>49); MAGNESIUM LEVEL 2.1 MG/DL (1.8-2.4); POTASSIUM SERUM 3.3 MEQ/L (3.5-5.1); TOTAL PROTEIN 5.6 GM/DL (6.4-8.2)
[2018-09-29] MEDS ORDERED: POTASSIUM CHLORIDE 10 MEQ SR TABLET PO ONE (08:00)
[2018-09-29] MEDS: buPROPion (WELLBUTRIN SR) 100 MG SR TAB PO SCH (08:41)
[2018-09-29] MEDS: OMEPRAZOLE 20 MG CAP PO SCH (08:41)
[2018-09-29] MEDS: ESCITALOPRAM OXALATE 10 MG TAB (LEXAPRO) PO SCH (08:41)
[2018-09-29] MEDS: AMIODARONE 200 MG TAB (PACERONE) PO SCH ×2 (08:41→20:46)
[2018-09-29] MEDS: FAMOTIDINE 20 MG TAB PO SCH (08:42)
[2018-09-29] MEDS: LEVEMIR (INSULIN DETEMIR) 1 UNITS/0.01ML SC SCH (08:42)
[2018-09-29] MEDS: TAMSULOSIN 0.4 MG CAP PO SCH (08:42)
[2018-09-29] MEDS: PREGABALIN 75 MG CAP(LYRICA) PO SCH ×2 (08:42→20:46)
[2018-09-29] MEDS: SENOKOT S TAB PO SCH ×2 (08:42→21:00)
[2018-09-29] MEDS: VITAMIN D 1,000 INTERNATIONAL UNITS TABLET PO SCH (08:42)
[2018-09-29] MEDS: HumaLOG INSULIN (NovoLOG) PER UNIT SC SCH ×4 (08:43→21:00)
[2018-09-29] MEDS: MOM 30ML SUSPENSION UDC PO SCH (08:43)
[2018-09-29] MEDS: MIRALAX *UNIT DOSE* 17GM PACKET PO SCH (08:43)
[2018-09-29] MEDS: PANTOPRAZOLE 40MG INJ (PROTONIX) (C9113) IV SCH (08:43)
[2018-09-29] MEDS: NS 1,000 ML IV SCH ×2 (08:43→19:49)
[2018-09-29] MEDS: METOPROLOL SUCC (TopROL XL) 100MG *XL* TAB PO SCH (08:44)
--- NOTE | 2018-09-29 09:01 | ECGEPIP ---
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
--- NOTE | 2018-09-29 11:31 | IPNPDOC ---
Date Seen The patient was seen on 09/29/18. Progress Note SUBJECTIVE: Patient is a 67-year-old male with mechanical fall resulting in right intertrochanteric femur fracture. Patient is evaluated bedside this morning. He is up and eating breakfast. He is in a traction device which is noted on his right lower extremity. Patient states that early this morning he felt somewhat confused and disoriented. He notes that it was because he was deprived of sleep and in pain. Imaging of his head and chest were obtained which were unrevealing. Patient states that he feels much better today. No fevers, night sweats, chills, chest pain, headache. OBJECTIVE PHYSICAL EXAMINATION: VITAL SIGNS: Please see below. GENERAL: Well nourished, well developed male, alert and conversant, appropriately dressed in hospital attire, answers questions appropriately, no acute distress, appears more comfortable. HEENT: Atraumatic, normocephalic, PERRL, EOMI, oral mucosa appears pink and moist, Mallampati class III, dentition is in poor condition, no lymphadenopathy, trachea midline, no thyromegaly. CARDIOVASCULAR: Irregularly irregular heart rate and rhythm, variable S1 and S2, no murmur, rub, click. RESPIRATORY: Clear to auscultation bilaterally, adequate inspiratory and expiratory airway excursion, symmetric airway entry, no focal consolidations, no wheeze, rhonchi, crackles. ABDOMINAL: Round, soft, non-tender, non-distended, bowel sounds appreciated throughout, no organomegaly, no rebound, no guarding. EXTREMITIES: Right extremity in traction device, peripheral pulses are equal and symmetrical, no peripheral edema, callus noted on left hallux. NEUROLOGICAL: No focal neurological deficits. PSYCHOLOGICAL: Mood and affect appropriate. LABORATORY DATA, IMAGING STUDIES, MICROBIOLOGY: Please see below. Echocardiogram: Completed. DVT prophylaxis ordered?: TEDs; no pharmacological anticoagulation pending orthopedic surgery. ASSESSMENT AND PLAN: This is a 67-year-old male with mechanical fall resulting in right intertrochanteric femur fracture. PROBLEMS: 1. Mechanical fall resulting in right intertrochanteric femur fracture: Orthopedics consulted. Recommended Portillo's traction until surgery which will likely take place on 09/30/2018. Cardiology consulted with recommendation that patient is optimized for surgery. Records are being obtained from outpatient primary care provider's office. Echocardiogram and nuclear stress test were performed in May 2018 with no significant deficits noted. Last dose of anticoagulation was on 09/27/2018. Continue beta-diana therapy. Resumption of anticoagulation per orthopedics. Pain management per orthopedics. Currently on Percocet and Morphine. EKG completed by Emergency Department. Nothing by mouth after midnight. METS +4. Gill perioperative risk is "1.2% risk for myocardial infarction or cardiac arrest, intraoperatively or up to 30 days post- op." Revised cardiac risk index is 3 points which places patient as a class IV risk with 11% risk of major cardiac event. Ordered is a one-time dose of Clindamycin pre-operatively. 2. Electrolyte derangements: Potassium supplementation provided. Corrected calcium is 9.1. 3. Acute on chronic kidney disease, stage III: Normal saline at 100 mLs per hour. Received a 500 mL bolus overnight. Monitor BMP daily. 4. Hematuria: Urinalysis obtained morning reveals 3+ blood with 101 RBC's. Will obtain a CPK level. Has underlying chronic kidney disease. Will obtain a renal ultrasound. Hemoglobin and hematocrit are stable. 5. Diabetes mellitus with hyperglycemia and neuropathy: Continue long-acting insulin 45 units subcutaneously daily. Will give half-dose morning of surgery. Okay to resume full-dose long-acting insulin once tolerating oral diet. Bolus insulin for coverage. Fingersticks before meals and at bedtime. Prior to surgery, will adjust fingersticks to every 6 hours. Hypoglycemic protocol. Consistent carbohydrate diet. Continue Lyrica. Hold morning of surgery. Continue post-operatively. Blood glucose level this morning was significantly improved. 6. Recent diagnosis of atrial fibrillation: Cardiology consulted. If spinal anesthesia, will need to be off anticoagulation for 72 hours. Eliquis on hold. Resumption deferred to orthopedics. Continue beta-diana pre- and post- operatively. Hold Amiodarone morning of surgery. Resume status-post surgery. Echocardiogram obtained. Requesting records from primary care provider's office.. 7. Depression: Continue Lexapro. Hold morning of surgery. Okay to continue post-operatively. 8. Gastroesophageal reflux disease: Continue Famotidine and Omeprazole. Hold morning of surgery. Okay to resume post-operatively. 9. Benign prostatic hyperplasia: Continue Flomax. Hold morning of surgery. Okay to resume post-operatively. 10. Chronic pain: Continue Tramadol. Hold morning of surgery. Okay to resume post-operatively. 11. Coronary artery disease status-post cardiac stenting: Follows with Dr. Johnson. Status-post stenting in 2000. 12. History of TIA/CVA: Residual left-sided weakness. Monitor. DISPOSITION: Cardiology consulted. Orthopedics consulted with surgery scheduled for 09/30/2018. Patient is optimized for surgery. VS, I&O, 24H, Fishbone Vital Signs/I&O Vital Signs Date Time Temp Pulse Resp B/P (MAP) Pulse Ox O2 Delivery O2 Flow Rate FiO2 09/29/18 09:23 2.0 09/29/18 08:44 82 118/68 09/29/18 06:05 13 96 Nasal Cannula 09/29/18 06:00 97.4 I&O- Last 24 Hours up to 6 AM 09/29/18 06:00 Intake Total 2740 ml Output Total 450 ml Balance 2290 ml Laboratory Data 24H LABS Laboratory Tests 2 09/28/18 12:21: Bedside Glucose (Misc Panel) 204H 09/28/18 16:58: Bedside Glucose (Misc Panel) 144H 09/28/18 20:33: Bedside Glucose (Misc Panel) 129H 09/29/18 03:25: Urine Appearance CLEAR, Urine Color YELLOW, Urine pH 5.0, Urine Specific [place] 1.015, Urine Protein 1+H, Urine Glucose (UA) NEGATIVE, Urine Ketones NEGATIVE, Urine Urobilinogen 0.2, Urine Bilirubin NEGATIVE, Urine Leukocyte Esterase NEGATIVE, Urine Blood 3+H, Urine Nitrite NEGATIVE, Urine WBC (Auto) 5H, Urine RBC (Auto) 101H, Urine Hyaline Casts (Auto) 4, Urine Bacteria (Auto) NEGATIVE, Urine Squamous Epithelial Cells 0, Urine Mucus (Auto) SMALL, Urine Sperm (Auto) 09/29/18 06:06: Immature Granulocyte % (Auto) 0.6, White Blood Count 9.5, Red Blood Count 3.94L, Hemoglobin 12.3L, Hematocrit 36.8L, Mean Corpuscular Volume 93.4, Mean Corpuscular Hemoglobin 31.2, Mean Corpuscular Hemoglobin Concent 33.4, Red Cell Distribution Width 13.3, Platelet Count 108L, Neutrophils (%) (Auto) 72.4H, Lymphocytes (%) (Auto) 17.9L, Monocytes (%) (Auto) 7.4H, Eosinophils (%) (Auto) 1.4, Basophils (%) (Auto) 0.3, Neutrophils # (Auto) 6.9, Lymphocytes # (Auto) 1.7, Monocytes # (Auto) 0.7, Eosinophils # (Auto) 0.1, Basophils # (Auto) 0.0, Nucleated Red Blood Cells % (auto) 0.0, Anion Gap 7L, Glomerular Filtration Rate 30.3L, Blood Urea Nitrogen 38H, Creatinine 2.29H, Sodium Level 138, Potassium Level 3.3L, Chloride Level 105, Carbon Dioxide Level 26, Calcium Level 7.8L, Aspartate Amino Transf (AST/SGOT) 13, Alanine Aminotransferase (ALT/SGPT) 28, Alkaline Phosphatase 78, Total Bilirubin 0.5, Total Protein 5.6L, Albumin 2.4L, Magnesium Level 2.1, Albumin/Globulin Ratio 0.75L CBC/BMP Laboratory Tests 09/29/18 06:06 Red Blood Count 3.94 L, Mean Corpuscular Volume 93.4, Mean Corpuscular Hemoglobin 31.2, Mean Corpuscular Hemoglobin Concent 33.4, Red Cell Distribution Width 13.3, Neutrophils (%) (Auto) 72.4 H, Lymphocytes (%) (Auto) 17.9 L, Monocytes (%) (Auto) 7.4 H, Eosinophils (%) (Auto) 1.4, Basophils (%) (Auto) 0.3, Neutrophils # (Auto) 6.9, Lymphocytes # (Auto) 1.7, Monocytes # (Auto) 0.7, Eosinophils # (Auto) 0.1, Basophils # (Auto) 0.0, Calcium Level 7.8 L, Aspartate Amino Transf (AST/SGOT) 13, Alanine Aminotransferase (ALT/SGPT) 28, Alkaline Phosphatase 78, Total Bilirubin 0.5, Total Protein 5.6 L, Albumin 2.4 L ELBERT SAM DO Sep 29, 2018 11:31
[2018-09-29] MEDS: PERCOCET 5MG/325MG TAB PO PRN (12:10)
[2018-09-29 14:00] VITALS: BP 127/62
--- NOTE | 2018-09-29 16:15 | REP ---
Urinary tract sonogram: History: Hematuria on urinalysis. Comparison: Comparison study April 19, 2014. Findings: Exam quality is inhibited to some degree by patient's body habitus. Scanning at the level of the urinary bladder shows no abnormality. The patient has a Hdez catheter. Renal cortical echogenicity pattern is normal bilaterally and contours are smooth. There is no evidence of hydronephrosis, cyst, mass, or calculus in either kidney. The right kidney measures 12.7 x 6.3 x 6.4 cm. Left renal dimensions are 12.7 x 6.8 x 4.6 cm. Impression: Hdez catheter in the bladder, otherwise negative urinary tract sonography. Electronically Signed by Mauro Avila MD 09/29/2018 04:06 P
[2018-09-29 17:00] VITALS: BP 143/75
[2018-09-29] MEDS: MORPHINE 4 MG/ML 1ML VIAL/SYRINGE (J2270) IV PRN (17:19)
[2018-09-29] MEDS: ATORVASTATIN 10 MG TAB PO SCH (21:00)
[2018-09-29 22:00] VITALS: BP 132/66
[2018-09-30] VITALS (7 sets, daily range): BP systolic 131–156; BP diastolic 60–79
[2018-09-30] MEDS ORDERED: CLINDAMYCIN 600 MG in APPROPRIATE DILUENT 1 EA IV SCH (06:15)
[2018-09-30 06:43] LABS: BASO % 0.1 % (0.0-1.0); EOS # 0.1 10^3/uL (0.0-0.50); EOS % 1.6 % (0.0-3.0); HEMATOCRIT 34.2 % (42.0-52.0); HEMOGLOBIN 11.4 g/dl (13.5-17.5); LYMPH # 1.2 10^3/uL (1.5-4.5); LYMPH % 15.6 % (24.0-44.0); MEAN CORPUSCULAR HEMOGLOBIN 30.8 pg (27.0-33.0); MEAN CORPUSCULAR HGB CONC 33.3 g/dl (32.0-36.5); MEAN CORPUSCULAR VOLUME 92.4 fl (80.0-96.0); MONO # 0.6 10^3/uL (0.0-0.8); MONO % 8.3 % (0.0-5.0); NEUTROPHILS # 5.6 10^3/uL (1.8-7.7); NEUTROPHILS % 73.9 % (36.0-66.0); PLATELET COUNT, AUTOMATED 109 10^3/uL (150-450); WHITE BLOOD COUNT 7.6 10^3/uL (4.0-10.0)
[2018-09-30 07:14] LABS: ALBUMIN 2.1 GM/DL (3.2-5.2); BILIRUBIN,TOTAL 0.3 MG/DL (0.2-1.0); CALCIUM LEVEL 7.6 MG/DL (8.8-10.2); CREATININE FOR GFR 1.97 MG/DL (0.70-1.30); GLOMERULAR FILTRATION RATE 36.1 (>49); MAGNESIUM LEVEL 2.1 MG/DL (1.8-2.4); POTASSIUM SERUM 3.2 MEQ/L (3.5-5.1); TOTAL PROTEIN 5.2 GM/DL (6.4-8.2)
[2018-09-30] MEDS ORDERED: LEVEMIR (INSULIN DETEMIR) 1 UNITS/0.01ML SC ONE (07:15)
[2018-09-30] MEDS ORDERED: POTASSIUM CHLORIDE 10 MEQ SR TABLET PO ONE (07:30)
[2018-09-30] MEDS: METOPROLOL SUCC (TopROL XL) 100MG *XL* TAB PO SCH (08:09)
[2018-09-30] MEDS: NS 1,000 ML IV SCH (08:10)
--- NOTE | 2018-09-30 09:31 | IPN ---
DATE: 09/30/2018 Mr. Mills had relatively good day yesterday. This morning he denies any chest pain, shortness of breath or palpitations. He was transferred from monitored bed to [address] [place] [address]. Vital signs this morning blood pressure 149/75, heart rate 56, afebrile. Saturation 96% on 1 liter of oxygen by nasal cannula. Weight has not been documented. He is alert and oriented and appropriate. His jugular venous pulse (JVP) is not high. Lungs are clear. Good air movement. Heart exam reveals widely splitting second heart sound but I do not appreciate any gallop or rub or murmur. Abdomen is obese but soft. Extremities are free of edema. Neurologically he is intact. LABORATORY: CBC reveals WBC count 7.6, hemoglobin 11.4, hematocrit 34, platelet count 109,000. Basic metabolic panel reveals sodium 140, potassium 3.2, BUN 32, creatinine 2.0 and glucose 152 Mr. Mills is a 67-year-old man who has a remote history of coronary intervention and recent stress test by Dr. Johnson in May that revealed no evidence for ischemia. He has preserved left ventricular systolic function and no significant valvular disease. He presented with a broken hip. Plan is to proceed with repair today. At this point he has been off anticoagulants for over 72 hours and consequently I think it is safe to proceed even with spinal anesthesia. Besides continuation of metoprolol and statin that I just started yesterday, I do not have any specific recommendations for perioperative management.
--- NOTE | 2018-09-30 10:10 | CR ---
DATE OF CONSULTATION: 09/29/2018 REFERRING PHYSICIAN: Dr. Oviedo INDICATION: Preoperative evaluation for hip repair. HISTORY OF PRESENT ILLNESS: Mr. Mills is a 67-year-old man who presented to [facility] ([facility]) yesterday after a fall leading to a hip fracture. I was asked by the hospitalist service to see him before planned surgery. The patient is certainly alert and oriented and can provide a reasonably history but it turns out that he has a very limited understanding of his condition. He is followed by Dr. Johnson and has a remote history of coronary intervention. He has not had any recent chest discomfort. He does say that he has trouble with congestive heart failure, but as of lately apparently it has not been a serious problem. He does recall that recently some of his medications were reduced which led to problems that he cannot exactly recall, but apparently Dr. Johnson saw him very recently and reinstituted the original doses of medications which corrected his symptoms. he does deny any chest discomfort recently. He denies dyspnea with activities of daily living. We were able to obtain records from Dr. Johnson's office. It turns out that the patient had recent echocardiogram that revealed findings that were not overly dissimilar from the echocardiogram obtained during this admission. The current echocardiogram interpreted by Dr. Diaz revealed preserved left ventricular systolic function with mild left atrial enlargement, mild mitral and tricuspid insufficiency. Normal central venous pressure and mild pulmonary hypertension. He also had a nuclear stress test on June 09, 2018. It was pharmacologic SPECT and revealed LVEF 56%. There was diaphragmatic attenuation but no perfusion abnormality. PAST MEDICAL HISTORY: 1. Type 2 diabetes. 2. Hypertension. 3. Hypercholesterolemia. 4. Remote history of coronary intervention. 5. Gastroesophageal reflux disease (GERD). 6. History of congestive heart failure, diastolic in nature. 7. I speculate that the patient carries a history of paroxysmal atrial fibrillation because he is chronically anticoagulated and he takes amiodarone. PAST SURGICAL HISTORY: Surgical history is positive for cholecystectomy. SOCIAL HISTORY: The patient quit smoking 13 years ago. He denies alcohol. FAMILY HISTORY: Father in his 60s from bleeding and mother from breast cancer, also quite young. ALLERGIES: To LATEX and PENICILLIN. OUTPATIENT MEDICATIONS: - amiodarone 200 twice a day - Eliquis 2.5 twice a day - bupropion - vitamin D - escitalopram 20 mg - insulin - metoprolol succinate 100 mg daily - omeprazole 20 mg daily - Lyrica 150 mg twice a day - Zantac 150 mg daily - Flomax 0.4 mg daily REVIEW OF SYSTEMS: On the review of systems he denies any recent fever, chills, nausea, vomiting or diarrhea. He denies chest pain. He does get short of breath with activity. He denies any recent syncope, near syncope and no peripheral edema. The rest as per history of present illness or negative. PHYSICAL EXAMINATION: Mr. Mills is a very pleasant man, obese in the 127 kg and body mass index 46. He is alert and oriented and appropriate. Vital signs this morning reveal a heart rate from 50s to 70s, but mostly in the 50s. Blood pressure 118/68. Saturation was 96% on 2 liters of oxygen by nasal cannula. His weight was not documented this morning but his fluid balance yesterday was recorded as positive 2200, but it is likely that the urine output was inaccurately recorded. His jugular venous pulse (JVP) is not high. Lungs are clear. I do not appreciate any wheezing. Heart: Exam reveals really muffled heart sounds consistent with his obesity. I do not appreciate any gallop, rub or murmur. Second heart sound is widely split. Abdomen is obese but soft. No hepatosplenomegaly is appreciated but it could be easily hidden due to his obesity. No peripheral edema. He has a traction on his right lower extremity. 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 LABORATORIES: Laboratories as of this morning hemoglobin 12.3, hematocrit 36.8, platelet count 108,000. Basic metabolic panel: Sodium 138, potassium 3.3, BUN 38, creatinine 2.3, glomerular filtration rate (GFR) 30, glucose 125, magnesium 2.1 and albumin 2.4, INR 1.4. He had a chest x-ray that revealed no new pathology, no infiltrate. No obvious congestive heart failure. Head CT: Did not reveal any acute pathology. There were some age-related atrophic changes. Because of worsened renal function had a renal ultrasound today that was negative for obstruction or significant abnormality. ASSESSMENT/PLAN: Mr. Mills is a 67-year-old man who broke his right hip. From a cardiac perspective I do not see any reason why he should not proceed with surgery. He does have established coronary artery disease with a very remote history of coronary intervention but he does not have any anginal symptoms and had a nuclear stress test only about 3 months ago that revealed no evidence for ischemia. He does have chronic congestive heart failure that is diastolic in nature and currently appears reasonably well compensated. As far as the renal failure is concerned there has certainly been deterioration which I think is most likely related to bleeding to the area of fracture. He was seen by nephrology in that regard. I do not have any specific recommendations for his perioperative management. His Eliquis was already discontinued on Thursday so by tomorrow it is going to be more than 72 hours. He is inappropriately being treated with a small dose even though according to current guidelines, he should be receiving a full dose 5 mg twice a day. But because I am not completely familiar with his indication I am going to leave the dose unchanged, but I would recommend that the Eliquis gets reinstituted after the surgery when felt safe from surgical perspective. I am also a little bit concerned about the fact that he has trifascicular block and takes high dose amiodarone which is much higher than would be usual maintenance dose. Consequently I am going to reduce the dosing to just once a day. He believes that when the metoprolol was previously reduced he had some form of problems which I assume most likely was atrial fibrillation. Consequently, I am going to leave the dose of metoprolol unchanged, but I do foresee that down the road he will very likely need reduction in dosing. MTDD
[2018-09-30] MEDS ORDERED: CLINDAMYCIN INJ 900MG/6ML VIAL As Ordered ONE (11:00)
[2018-09-30] MEDS ORDERED: TRANEXAMIC ACID 100 MG/ML 10ML VIAL As Ordered ONE (11:00)
--- NOTE | 2018-09-30 11:11 | IPNPDOC ---
Date Seen The patient was seen on 09/30/18. Progress Note SUBJECTIVE: Patient is a 67-year-old male with mechanical fall resulting in right intertrochanteric femur fracture. Patient is evaluated at bedside this morning. He is asleep upon my entering the room. He is groggy, but alert and answers questions appropriately. He is going for repair of his right hip today. He feels like his pain is currently under control. Denies chest pain, shortness of breath, nausea, vomiting, abdominal pain. OBJECTIVE PHYSICAL EXAMINATION: VITAL SIGNS: Please see below. GENERAL: Well nourished, well developed male, sleepy, but arousable, appropriately dressed in hospital attire, answers questions appropriately, no acute distress, appears comfortable. HEENT: Atraumatic, normocephalic, PERRL, EOMI, oral mucosa appears pink and moist, Mallampati class III, dentition is in poor condition, no lymphadenopathy, trachea midline, no thyromegaly. CARDIOVASCULAR: Irregularly irregular heart rate and rhythm, variable S1 and S2, no murmur, rub, click. RESPIRATORY: Clear to auscultation bilaterally, adequate inspiratory and expiratory airway excursion, symmetric airway entry, no focal consolidations, no wheeze, rhonchi, crackles. ABDOMINAL: Round, soft, non-tender, non-distended, bowel sounds appreciated throughout, no organomegaly, no rebound, no guarding. EXTREMITIES: Right extremity in traction device, peripheral pulses are equal and symmetrical, no peripheral edema, callus noted on left hallux. NEUROLOGICAL: No focal neurological deficits. PSYCHOLOGICAL: Mood and affect appropriate. LABORATORY DATA, IMAGING STUDIES, MICROBIOLOGY: Please see below. Echocardiogram: Completed. DVT prophylaxis ordered?: TEDs; no pharmacological anticoagulation pending orthopedic surgery. ASSESSMENT AND PLAN: This is a 67-year-old male with mechanical fall resulting in right intertrochanteric femur fracture. PROBLEMS: 1. Mechanical fall resulting in right intertrochanteric femur fracture: Orthopedics consulted. Patient is going for repair of right femur fracture today, 09/30/2018. Cardiology has been consulted and patient has been optimized for surgery. Received patient's echocardiogram and nuclear stress test from patient's primary care provider's office. The chest were performed in May 2018. No significant deficits noted on imaging. Patient's last dose of anticoagulation was 09/27/2018. He has been off anticoagulation since being hospitalized. Beta-diana therapy will be continued morning of surgery. Resumption of anticoagulation and pain management per orthopedics recommendations. Continued Percocet, morphine, and tramadol morning of surgery. Patient has been nothing by mouth in anticipation for upcoming surgery. METS +4. Gill perioperative risk is "1.2% risk for myocardial infarction or cardiac arrest, intraoperatively or up to 30 days post-op." Revised cardiac risk index is 3 points which [address] patient as a class IV risk with 11% risk of major cardiac event. Ordered is a one-time dose of Clindamycin pre-operatively. 2. Electrolyte derangements: Potassium supplementation provided. Corrected calcium is 9.1. 3. Acute on chronic kidney disease, stage III: Normal saline at 100 mLs per hour. Monitor daily BMP. 4. Hematuria: Urinalysis obtained morning reveals 3+ blood with 101 RBC's. CPK level within normal limits. Renal ultrasound negative. Hemoglobin and hematocrit are stable. Active signs of bleeding. Could consider outpatient follow-up with urology. 5. Diabetes mellitus with hyperglycemia and neuropathy: Provided long-acting insulin 22 units subcutaneously this morning. Can resume full dose long-acting insulin status post orthopedic surgery. Held bolus insulin. Fingersticks before meals and at bedtime upon resumption of diet. Hypoglycemic protocol in place. Patient may have consistent carbohydrate diet once cleared to resume diet. Holding Lyrica preoperatively. May continued post-operatively. 6. Recent diagnosis of atrial fibrillation: Cardiology consulted. Patient's last dose of anticoagulation was 09/27/2018. Patient has been optimized for surgery from a cardiac standpoint. Please see #1 for further description. R esumption of anticoagulation per orthopedics recommendation. Beta diana to continue pre-and postoperatively. 7. Depression: Held Lexapro morning of surgery. Okay to continue postoperatively. 8. Gastroesophageal reflux disease: Held famotidine and omeprazole preoperatively. Okay to continue post operatively. 9. Benign prostatic hyperplasia: Held Flomax preoperatively. Okay to resume postoperatively. 10. Chronic pain: Continue Tramadol. 11. Coronary artery disease status-post cardiac stenting: Follows with Dr. Johnson. Status-post stenting in 2000. 12. History of TIA/CVA: Residual left-sided weakness. Monitor. DISPOSITION: Cardiology consulted. Orthopedics consulted surgical intervention today, 09/30/2018. Patient is optimized for surgery. VS, I&O, [facility]/I&O Vital Signs Date Time Temp Pulse Resp B/P (MAP) Pulse Ox O2 Delivery O2 Flow Rate FiO2 09/30/18 08:09 56 149/75 09/30/18 08:08 96 Nasal Cannula 1.0 09/30/18 06:00 97.9 18 I&O- Last 24 Hours up to 6 AM 09/30/18 06:00 Intake Total 1850 ml Output Total 1725 ml Balance 125 ml Laboratory Data 24H LABS Laboratory Tests 2 09/29/18 11:52: Total Creatine Kinase 43 09/29/18 17:02: Bedside Glucose (Misc Panel) 210H 09/29/18 19:57: Bedside Glucose (Misc Panel) 173H 09/30/18 06:14: Bedside Glucose (Misc Panel) 144H 09/30/18 06:25: Immature Granulocyte % (Auto) 0.5, White Blood Count 7.6, Red Blood Count 3.70L, Hemoglobin 11.4L, Hematocrit 34.2L, Mean Corpuscular Volume 92.4, Mean Corpuscular Hemoglobin 30.8, Mean Corpuscular Hemoglobin Concent 33.3, Red Cell Distribution Width 13.2, Platelet Count 109L, Neutrophils (%) (Auto) 73.9H, Lymphocytes (%) (Auto) 15.6L, Monocytes (%) (Auto) 8.3H, Eosinophils (%) (Auto) 1.6, Basophils (%) (Auto) 0.1, Neutrophils # (Auto) 5.6, Lymphocytes # (Auto) 1.2L, Monocytes # (Auto) 0.6, Eosinophils # (Auto) 0.1, Basophils # (Auto) 0.0, Nucleated Red Blood Cells % (auto) 0.0, Anion Gap 8, Glomerular Filtration Rate 36.1L, Blood Urea Nitrogen 32H, Creatinine 1.97H, Sodium Level 140, Potassium Level 3.2L, Chloride Level 108H, Carbon Dioxide Level 24, Calcium Level 7.6L, Aspartate Amino Transf (AST/SGOT) 13, Alanine Aminotransferase (ALT/SGPT) 20, Alkaline Phosphatase 75, Total Bilirubin 0.3, Total Protein 5.2L, Albumin 2.1L, Magnesium Level 2.1, Albumin/Globulin Ratio 0.68L CBC/BMP Laboratory Tests 09/30/18 06:25 Red Blood Count 3.70 L, Mean Corpuscular Volume 92.4, Mean Corpuscular Hemoglobin 30.8, Mean Corpuscular Hemoglobin Concent 33.3, Red Cell Distribution Width 13.2, Neutrophils (%) (Auto) 73.9 H, Lymphocytes (%) (Auto) 15.6 L, Monocytes (%) (Auto) 8.3 H, Eosinophils (%) (Auto) 1.6, Basophils (%) (Auto) 0.1, Neutrophils # (Auto) 5.6, Lymphocytes # (Auto) 1.2 L, Monocytes # (Auto) 0.6, Eosinophils # (Auto) 0.1, Basophils # (Auto) 0.0, Calcium Level 7.6 L, Aspartate Amino Transf (AST/SGOT) 13, Alanine Aminotransferase (ALT/SGPT) 20, Alkaline Phosphatase 75, Total Bilirubin 0.3, Total Protein 5.2 L, Albumin 2.1 L ELBERT SAM DO Sep 30, 2018 11:11
[2018-09-30] MEDS ORDERED: METOCLOPRAMIDE INJ 10MG/2ML VIAL (J2765) As Ordered ONE (12:04)
[2018-09-30] MEDS ORDERED: PROPOFOL 200 MG/20 ML VIAL As Ordered ONE (12:04)
[2018-09-30] MEDS ORDERED: LIDOCAINE 2% INJ 100 MG/5 ML SDV (FOR ANES.) As Ordered ONE (12:04)
[2018-09-30] MEDS ORDERED: ONDANSETRON 4MG/2ML VIAL (J2405) As Ordered ONE (12:04)
[2018-09-30] MEDS ORDERED: MIDAZOLAM INJ 2 MG/2 ML VIAL (J2250) As Ordered ONE (12:04)
[2018-09-30] MEDS ORDERED: fentaNYL 100 MCG/2 ML INJECTION (J3010) As Ordered ONE ×2 (12:05→14:25)
--- NOTE | 2018-09-30 14:18 | REP ---
RIGHT HIP: Seven views. HISTORY: Hip fracture. Injury in a fall. [id number]-second of fluoroscopy time is reported. No laterality markers are noted. A sequence of seven last image hold fluoroscopically obtained spot radiographs document open reduction internal fixation for hip fracture. Electronically Signed by Mauro Avila MD 09/30/2018 06:11 P
[2018-09-30] MEDS ORDERED: ePHEDrine SULFATE 25 MG/5 ML(5MG/ML) SYRINGE As Ordered ONE (14:23)
[2018-09-30] MEDS ORDERED: PERCOCET 5MG/325MG TAB As Ordered ONE (14:25)
[2018-09-30] MEDS: fentaNYL 100 MCG/2 ML INJECTION (J3010) IV PRN ×4 (14:30→14:45)
[2018-09-30] MEDS ORDERED: PERCOCET 5MG/325MG TAB PO PRN (14:45)
[2018-09-30] MEDS ORDERED: LR 1,000 ML IV SCH ×2 (14:45)
[2018-09-30] MEDS ORDERED: ONDANSETRON 4MG/2ML VIAL (J2405) IV PRN (14:45)
[2018-09-30] MEDS ORDERED: METOCLOPRAMIDE INJ 10MG/2ML VIAL (J2765) IV PRN (14:45)
[2018-09-30] MEDS ORDERED: MEPERIDINE INJ 25 MG/ML VIAL (J2175) IV PRN (14:45)
--- NOTE | 2018-09-30 15:01 | RO ---
DATE OF PROCEDURE: 09/30/2018 CHIEF COMPLAINT: Right intertrochanteric hip fracture. PREPROCEDURE DIAGNOSIS: Right hip fracture. POSTPROCEDURE DIAGNOSIS: Right hip fracture. PLANNED PROCEDURE: TFNA / IM nail right hip. PROCEDURE: TFNA / IM nail right hip. SURGEON: Dr. Marcial Matthews UTILITY ARBORIST: None. ANESTHESIA: General anesthetic. Frame Stripper And Crusher: Dr. Chand. OPERATIVE PREAMBLE: This is a 67-year-old man who had a fall while at home. I was consulted to see him for a fracture surgery by Dr. Chin. He ws seen in preoperative holding. We discussed the pros and cons, risks and benefits, procedures of the surgery. I counseled him and his family along with his two daughters and his grandchildren with regards to surgical risks which include but are not limited to infection, neurovascular injury, pain, bleeding, delayed mal or nonunion, need for further surgery, and venous thromboembolism (VTE), anesthetic complications. He would like to go ahead. He has signed a consent form for surgery. DESCRIPTION OF PROCEDURE: Patient was brought to the operating theater and placed supine on the fracture table. 600 mg of clindamycin was administered intravenously due to penicillin allergy. 2 grams of IV tranexamic acid was also administered. Surgical time out was performed. The patient was placed in the traction setup with the right leg in the traction, left leg in the leg gracia. AP and lateral radiographs were taken with the leg in traction in slight internal rotation. This appeared to reduce the intertrochanteric hip fracture and keep it up to length, although the greater trochanter was definitely displaced and off and the lesser trochanter was still in place with some keying in along the medial calcar. The lateral proximal femur on the right side was prepped and draped with prep solution and allowed to thoroughly dry for 3 minutes. We used the shower curtain-style drape to drape this out. I took AP and lateral radiographs to make sure that I was proximal to the greater trochanter. I made a 3-inch incision proximal to this and carried it down through skin and subcutaneous tissue. I used the curved Newell scissors to open up fascia and the gluteal muscles overlying the greater trochanter. I placed a guidewire at the tip of the greater trochanter on AP and lateral radiographs. I passed this down aiming for the lesser trochanter on AP and lateral radiographs. Next, I used the opening reamer to ream the proximal end of the femur. I passed ball-tip guidewires looking at the preoperative radiographs. He definitely had a bit of tight canal distally. I reamed this up from [address] up to 12.5 and there is definite shatter with this. I reamed just distal to where the nail usual goes. Then with the ball-tipped guidewire in place, I then passed the nail down the canal. I chose a 130-degree nail with preoperative templating. This is a 200 mm long nail with 11 mm diameter. I passed this down. It was distracting at the proximal femur in terms of the intertrochanteric fracture, slightly falling into the fracture. I tried many ways to correct this including reaming the medial aspect of the entry hole taking on and off the traction as well as internal and external rotation in abduction and adduction. There still was some persistent gaping. So I did my best to put on a little bit of traction to eliminate the slight amount of gaping and varus was developing in the facture site with passing the nail. I took nail out and put it back in a few times to try and correct this. Eventually, I had a neck-shaft angle that I thought was acceptable. I passed the nail down. Next, I used the drop-down 130-degree guide to karla the position for my distal incision. Once the nail was down distal enough with malleting, I then made a small percutaneous stab incision and then cut down through skin and subcutaneous tissue and tensor fascia robe. I passed the drop-down guide down to the lateral aspect of the femur and tightened this down, made sure it clicked into the radiolucent guide. I then passed the guidewire in AP and lateral radiographs down the center of the femoral neck and head. I passed this just to the subchondral bone. This measured approximately 120 mm and as such, I took 5 mm off and chose a 115 mm long helical blade. I reamed the proximal lateral aspect of the femur over top of the guidewire. I then passed the helical blade over top of the guidewire and sent this down as far as it would go. It appeared to be in proper position on the AP and lateral radiographs with a tip apex distance of approximately 20 mm. I then use the angled screwdriver to apply some compression across the fracture after taking off traction distally but it was quite keyed in, in terms of the small spike that had keyed in medial along the medial calcar and lesser trochanter. I then took off the traction again and unlocked the nail proximally to allow some compression to occur when he weight-bears. I then turned my attention distally and inserted the distal transverse locking screw. I did this in a percutaneous fashion. I used the drill and depth gauge to measure for this. It measured a 40 mm screw and such I inserted a 40 mm screw. This went in nicely and had a very strong solid bite. The bone quality was good. I too the final AP and lateral radiographs proximally and distally and the neck shaft angle appeared appropriate. There was definitely some gap at the fracture site from when the helical blade was inserted into the proximal femoral head and neck but as I stated, I unlocked the nail to allow compression occur across this aspect and it was slightly gapped laterally at the intertrochanteric region due to the greater trochanter fracture. I thoroughly irrigated the wounds using normal saline, then closed the subcutaneous tissue with interrupted #2-0 Vicryl sutures. I closed the skin with greg. We then placed a large bulky ABD dressing for 4 x 8 gauze and Adaptic over the wounds and covered this up with cloth tape. The patient was transferred off the operating room table, awoken up from the general anesthetic and taken to the postanesthesia care unit in stable condition. All sponge, need, and instrument counts were correct. Estimated blood loss: 100 mL. Plan is for the patient to be weightbearing as tolerated. They will see physical therapy (PT) and occupational therapy (OT) while the hospital to help with mobility. The hospitalist will take care of their medical issues and reorder their medications and VTE prophylaxis will be with Fatou what they were on before the surgery. I spoke to the family afterwards and conveyed to them my plan for postoperative care. JT
[2018-09-30] MEDS: HumaLOG INSULIN (NovoLOG) PER UNIT SC SCH ×2 (17:20→21:04)
[2018-09-30] MEDS: PREGABALIN 75 MG CAP(LYRICA) PO SCH (21:00)
[2018-09-30] MEDS: PERCOCET 5MG/325MG TAB PO PRN (21:02)
[2018-09-30] MEDS: SENOKOT S TAB PO SCH (21:03)
[2018-09-30] MEDS: ATORVASTATIN 10 MG TAB PO SCH (21:03)
[2018-10-01 02:00] VITALS: BP 129/72
[2018-10-01 06:00] VITALS: BP 147/61
[2018-10-01 06:31] LABS: BASO % 0.1 % (0.0-1.0); EOS # 0.1 10^3/uL (0.0-0.50); EOS % 1.5 % (0.0-3.0); HEMATOCRIT 32.8 % (42.0-52.0); HEMOGLOBIN 10.9 g/dl (13.5-17.5); LYMPH # 1.2 10^3/uL (1.5-4.5); LYMPH % 15.9 % (24.0-44.0); MEAN CORPUSCULAR HEMOGLOBIN 30.7 pg (27.0-33.0); MEAN CORPUSCULAR HGB CONC 33.2 g/dl (32.0-36.5); MEAN CORPUSCULAR VOLUME 92.4 fl (80.0-96.0); MONO # 0.6 10^3/uL (0.0-0.8); MONO % 8.4 % (0.0-5.0); NEUTROPHILS # 5.5 10^3/uL (1.8-7.7); NEUTROPHILS % 73.7 % (36.0-66.0); PLATELET COUNT, AUTOMATED 108 10^3/uL (150-450); RED BLOOD COUNT 3.55 10^6/uL (4.30-6.10); WHITE BLOOD COUNT 7.5 10^3/uL (4.0-10.0)
[2018-10-01 07:01] LABS: ALBUMIN 1.9 GM/DL (3.2-5.2); BILIRUBIN,TOTAL 0.4 MG/DL (0.2-1.0); CALCIUM LEVEL 7.6 MG/DL (8.8-10.2); CREATININE FOR GFR 1.74 MG/DL (0.70-1.30); GLOMERULAR FILTRATION RATE 41.6 (>49); MAGNESIUM LEVEL 1.8 MG/DL (1.8-2.4); POTASSIUM SERUM 3.7 MEQ/L (3.5-5.1); TOTAL PROTEIN 5.4 GM/DL (6.4-8.2)
[2018-10-01] MEDS: PANTOPRAZOLE 40MG INJ (PROTONIX) (C9113) IV SCH (09:17)
[2018-10-01] MEDS: MOM 30ML SUSPENSION UDC PO SCH (09:17)
[2018-10-01] MEDS: MIRALAX *UNIT DOSE* 17GM PACKET PO SCH (09:17)
[2018-10-01] MEDS: PREGABALIN 75 MG CAP(LYRICA) PO SCH ×2 (09:18→20:27)
[2018-10-01] MEDS: PERCOCET 5MG/325MG TAB PO PRN ×3 (09:19→20:29)
[2018-10-01] MEDS: AMIODARONE 200 MG TAB (PACERONE) PO SCH (09:20)
[2018-10-01] MEDS: SENOKOT S TAB PO SCH ×2 (09:20→20:27)
[2018-10-01] MEDS: VITAMIN D 1,000 INTERNATIONAL UNITS TABLET PO SCH (09:20)
[2018-10-01] MEDS: APIXABAN 2.5 MG TAB (ELIQUIS) PO SCH ×2 (09:20→20:27)
[2018-10-01] MEDS: METOPROLOL SUCC (TopROL XL) 100MG *XL* TAB PO SCH (09:20)
[2018-10-01] MEDS: FAMOTIDINE 20 MG TAB PO SCH (09:20)
[2018-10-01] MEDS: ESCITALOPRAM OXALATE 10 MG TAB (LEXAPRO) PO SCH (09:20)
[2018-10-01] MEDS: OMEPRAZOLE 20 MG CAP PO SCH (09:20)
[2018-10-01] MEDS: TAMSULOSIN 0.4 MG CAP PO SCH (09:20)
[2018-10-01] MEDS: HumaLOG INSULIN (NovoLOG) PER UNIT SC SCH ×4 (09:21→20:28)
[2018-10-01] MEDS: LEVEMIR (INSULIN DETEMIR) 1 UNITS/0.01ML SC SCH (09:22)
[2018-10-01 10:00] VITALS: BP 173/80
[2018-10-01] MEDS: buPROPion (WELLBUTRIN SR) 100 MG SR TAB PO SCH (12:57)
[2018-10-01 14:00] VITALS: BP 142/55
--- NOTE | 2018-10-01 16:11 | IPNPDOC ---
Date Seen The patient was seen on 10/01/18. Progress Note SUBJECTIVE: Patient is a 67-year-old male with mechanical fall resulting in right intertrochanteric femur fracture. Patient is evaluated at bedside this morning. He is working with occupational therapy during my evaluation. Patient successfully underwent revision of right femur fracture. He states that he has stiffness and pain in his right hip, but offers up no other concerns at this time. OBJECTIVE PHYSICAL EXAMINATION: VITAL SIGNS: Please see below. GENERAL: Well nourished, well developed male, alert and conversant, appropriately dressed in hospital attire, answers questions appropriately, no acute distress, appears uncomfortable. HEENT: Atraumatic, normocephalic, PERRL, EOMI, oral mucosa appears pink and moist, Mallampati class III, dentition is in poor condition, no lymphadenopathy, trachea midline, no thyromegaly. CARDIOVASCULAR: Irregularly irregular heart rate and rhythm, variable S1 and S2, no murmur, rub, click. RESPIRATORY: Clear to auscultation bilaterally, adequate inspiratory and expiratory airway excursion, symmetric airway entry, no focal consolidations, no wheeze, rhonchi, crackles. ABDOMINAL: Round, soft, non-tender, non-distended, bowel sounds appreciated throughout, no organomegaly, no rebound, no guarding. EXTREMITIES: Bilateral knee high compression stockings in place, two areas that are covered in gauze and Tegaderm noted on the lateral aspect of the right hip, no peripheral edema, callus noted on left hallux. NEUROLOGICAL: No focal neurological deficits. PSYCHOLOGICAL: Mood and affect appropriate. LABORATORY DATA, IMAGING STUDIES, MICROBIOLOGY: Please see below. Echocardiogram: Completed. DVT prophylaxis ordered?: Eliquis 2.5mg by mouth twice daily. ASSESSMENT AND PLAN: This is a 67-year-old male with mechanical fall resulting in right intertrochanteric femur fracture. PROBLEMS: 1. Mechanical fall resulting in right intertrochanteric femur fracture: Orthopedics consulted. Status-post TFNA / IM nail right hip. Restarted Eliquis 2.5mg by mouth twice daily for anticoagulation. Physical, occupational therapy have been ordered. Screening for ARU has been ordered. Continue Tramadol. Patient is on Percocet 1 tab by mouth every 4 hours as needed, Morphine 2mg IV every 2 hours as needed, and Fentanyl 25mcg IV every 5 minutes as needed (with 4 doses remaining). 2. Electrolyte derangements: Corrected calcium 9.3. No supplementation required. 3. Acute on chronic kidney disease, stage III: Creatinine 1.74. Monitor with daily BMP. 4. Hematuria: Urinalysis obtained morning reveals 3+ blood with 101 RBC's. CPK level within normal limits. Renal ultrasound negative. Hemoglobin and hematocrit are decreased (likely dilutional). No active signs of bleeding. Could consider outpatient follow-up with urology. 5. Anemia: No active signs of bleeding. Likely dilutional. Monitor. 6. Diabetes mellitus with hyperglycemia and neuropathy: Continue with Levemir 45 units subcutaneously daily, bolus insulin before meals and at bedtime, fingersticks before meals and at bedtime, hypoglycemic protocol, and consistent carbohydrate diet. Continue Lyrica. 6. Recent diagnosis of atrial fibrillation: Cardiology consulted for vicenta- operative optimization. Patient was optimized and successfully underwent revision of right femur fracture. Restarted Eliquis at 2.5mg by mouth twice daily. Continue Metoprolol and Amiodarone. 7. Depression: Continue Lexapro. 8. Gastroesophageal reflux disease: Continue famotidine and omeprazole. 9. Benign prostatic hyperplasia: Continue Flomax. 10. Chronic pain: Continue Tramadol. 11. Coronary artery disease status-post cardiac stenting: Follows with Dr. Johnson. Status-post stenting in 2000. 12. History of TIA/CVA: Residual left-sided weakness. Monitor. DISPOSITION: Physical and occupational therapy. ARU screening. VS, I&O, 24H, Fishbone Vital Signs/I&O Vital Signs Date Time Temp Pulse Resp B/P (MAP) Pulse Ox O2 Delivery O2 Flow Rate FiO2 10/01/18 15:24 20 Room Air 10/01/18 14:00 100.1 70 142/55 (84) 90 10/01/18 12:34 2.0 I&O- Last 24 Hours up to 6 AM 10/01/18 06:00 Intake Total 3330 ml Output Total 3325 ml Balance 5 ml Laboratory Data 24H LABS Laboratory Tests 2 09/30/18 16:50: Bedside Glucose (Misc Panel) 143H 09/30/18 20:43: Bedside Glucose (Misc Panel) 225H 10/01/18 05:46: Immature Granulocyte % (Auto) 0.4, White Blood Count 7.5, Red Blood Count 3.55L, Hemoglobin 10.9L, Hematocrit 32.8L, Mean Corpuscular Volume 92.4, Mean Corpuscular Hemoglobin 30.7, Mean Corpuscular Hemoglobin Concent 33.2, Red Cell Distribution Width 13.4, Platelet Count 108L, Neutrophils (%) (Auto) 73.7H, Lymphocytes (%) (Auto) 15.9L, Monocytes (%) (Auto) 8.4H, Eosinophils (%) (Auto) 1.5, Basophils (%) (Auto) 0.1, Neutrophils # (Auto) 5.5, Lymphocytes # (Auto) 1.2L, Monocytes # (Auto) 0.6, Eosinophils # (Auto) 0.1, Basophils # (Auto) 0.0, Nucleated Red Blood Cells % (auto) 0.0, Anion Gap 11, Glomerular Filtration Rate 41.6L, Blood Urea Nitrogen 28H, Creatinine 1.74H, Sodium Level 139, Potassium Level 3.7, Chloride Level 105, Carbon Dioxide Level 23, Calcium Level 7.6L, Aspartate Amino Transf (AST/SGOT) 15, Alanine Aminotransferase (ALT/SGPT) 19, Alkaline Phosphatase 70, Total Bilirubin 0.4, Total Protein 5.4L, Albumin 1.9L, Magnesium Level 1.8, Albumin/Globulin Ratio 0.54L 10/01/18 12:48: Bedside Glucose (Misc Panel) 297H CBC/BMP Laboratory Tests 10/01/18 05:46 Red Blood Count 3.55 L, Mean Corpuscular Volume 92.4, Mean Corpuscular Hemoglobin 30.7, Mean Corpuscular Hemoglobin Concent 33.2, Red Cell Distribution Width 13.4, Neutrophils (%) (Auto) 73.7 H, Lymphocytes (%) (Auto) 15.9 L, Monocytes (%) (Auto) 8.4 H, Eosinophils (%) (Auto) 1.5, Basophils (%) (Auto) 0.1, Neutrophils # (Auto) 5.5, Lymphocytes # (Auto) 1.2 L, Monocytes # (Auto) 0.6, Eosinophils # (Auto) 0.1, Basophils # (Auto) 0.0, Calcium Level 7.6 L, Aspartate Amino Transf (AST/SGOT) 15, Alanine Aminotransferase (ALT/SGPT) 19, Alkaline Phosphatase 70, Total Bilirubin 0.4, Total Protein 5.4 L, Albumin 1.9 L ELBERT SAM DO Oct 01, 2018 16:11
[2018-10-01] MEDS: ATORVASTATIN 10 MG TAB PO SCH (20:28)
[2018-10-01 22:00] VITALS: BP 138/56
[2018-10-01] MEDS: traMADol 50 MG TAB PO PRN (22:49)
[2018-10-02] MEDS: PERCOCET 5MG/325MG TAB PO PRN ×2 (05:18→17:41)
[2018-10-02 06:00] VITALS: BP 151/79
[2018-10-02 07:03] LABS: BASO % 0.3 % (0.0-1.0); EOS # 0.2 10^3/uL (0.0-0.50); EOS % 2.4 % (0.0-3.0); HEMATOCRIT 31.1 % (42.0-52.0); HEMOGLOBIN 10.3 g/dl (13.5-17.5); LYMPH # 1.3 10^3/uL (1.5-4.5); LYMPH % 17.6 % (24.0-44.0); MEAN CORPUSCULAR HEMOGLOBIN 30.7 pg (27.0-33.0); MEAN CORPUSCULAR HGB CONC 33.1 g/dl (32.0-36.5); MEAN CORPUSCULAR VOLUME 92.8 fl (80.0-96.0); MONO # 0.6 10^3/uL (0.0-0.8); MONO % 8.6 % (0.0-5.0); NEUTROPHILS # 5.1 10^3/uL (1.8-7.7); NEUTROPHILS % 70.7 % (36.0-66.0); PLATELET COUNT, AUTOMATED 125 10^3/uL (150-450); RED BLOOD COUNT 3.35 10^6/uL (4.30-6.10); WHITE BLOOD COUNT 7.2 10^3/uL (4.0-10.0)
[2018-10-02 07:28] LABS: BILIRUBIN,TOTAL 0.4 MG/DL (0.2-1.0); CALCIUM LEVEL 7.9 MG/DL (8.8-10.2); CREATININE FOR GFR 1.79 MG/DL (0.70-1.30); GLOMERULAR FILTRATION RATE 40.3 (>49); MAGNESIUM LEVEL 2.1 MG/DL (1.8-2.4); TOTAL PROTEIN 5.5 GM/DL (6.4-8.2)
[2018-10-02] MEDS: buPROPion (WELLBUTRIN SR) 100 MG SR TAB PO SCH (09:09)
[2018-10-02] MEDS: ESCITALOPRAM OXALATE 10 MG TAB (LEXAPRO) PO SCH (09:09)
[2018-10-02] MEDS: LEVEMIR (INSULIN DETEMIR) 1 UNITS/0.01ML SC SCH (09:09)
[2018-10-02] MEDS: FAMOTIDINE 20 MG TAB PO SCH (09:09)
[2018-10-02] MEDS: HumaLOG INSULIN (NovoLOG) PER UNIT SC SCH ×4 (09:09→20:18)
[2018-10-02] MEDS: APIXABAN 2.5 MG TAB (ELIQUIS) PO SCH ×2 (09:10→20:17)
[2018-10-02] MEDS: OMEPRAZOLE 20 MG CAP PO SCH (09:10)
[2018-10-02] MEDS: AMIODARONE 200 MG TAB (PACERONE) PO SCH (09:10)
[2018-10-02] MEDS: VITAMIN D 1,000 INTERNATIONAL UNITS TABLET PO SCH (09:10)
[2018-10-02] MEDS: METOPROLOL SUCC (TopROL XL) 100MG *XL* TAB PO SCH (09:10)
[2018-10-02] MEDS: PREGABALIN 75 MG CAP(LYRICA) PO SCH ×2 (09:10→20:17)
[2018-10-02] MEDS: TAMSULOSIN 0.4 MG CAP PO SCH (09:10)
--- NOTE | 2018-10-02 10:51 | IPNPDOC ---
Date Seen The patient was seen on 10/02/18. Progress Note SUBJECTIVE: Patient is a 67-year-old male with mechanical fall resulting in right intertrochanteric femur fracture. Patient is evaluated at bedside this morning. Status-post surgical repair on 09/30/2018. He continues to experience pain and stiffness in his right hip, but denies shortness of breath, nausea, vomiting, abdominal pain. Has had multiple bowel movements. OBJECTIVE PHYSICAL EXAMINATION: VITAL SIGNS: Please see below. GENERAL: Well nourished, well developed male, groggy, but arousable, answers questions appropriately, appropriately dressed in hospital attire, no acute distress, appears uncomfortable. HEENT: Atraumatic, normocephalic, PERRL, EOMI, oral mucosa appears pink and moist, Mallampati class III, dentition is in poor condition, no lymphadenopathy, trachea midline, no thyromegaly. CARDIOVASCULAR: Irregularly irregular heart rate and rhythm, variable S1 and S2, no murmur, rub, click. RESPIRATORY: Clear to auscultation bilaterally, adequate inspiratory and expiratory airway excursion, symmetric airway entry, no focal consolidations, no wheeze, rhonchi, crackles. ABDOMINAL: Round, soft, non-tender, non-distended, bowel sounds appreciated throughout, no organomegaly, no rebound, no guarding. EXTREMITIES: Bilateral knee high compression stockings in place, two areas that are covered in gauze and Tegaderm noted on the lateral aspect of the right hip, no peripheral edema, callus noted on left hallux. NEUROLOGICAL: No focal neurological deficits. PSYCHOLOGICAL: Mood and affect appropriate. LABORATORY DATA, IMAGING STUDIES, MICROBIOLOGY: Please see below. Echocardiogram: Completed. DVT prophylaxis ordered?: Eliquis 2.5mg by mouth twice daily. ASSESSMENT AND PLAN: This is a 67-year-old male with mechanical fall resulting in right intertrochanteric femur fracture. PROBLEMS: 1. Mechanical fall resulting in right intertrochanteric femur fracture: Orthopedics consulted. Status-post TFNA / IM nail right hip on 09/30/2018. Continue Eliquis 2.5mg by mouth twice daily for anticoagulation. Physical, occupational therapy have been ordered. Screening for ARU has been ordered. Continue Tramadol. Patient is on Percocet 1 tab by mouth every 4 hours as needed, Morphine 2mg IV every 2 hours as needed, and Fentanyl 25mcg IV every 5 minutes as needed (with 4 doses remaining). Patient may need prolonged acute rehabilitation. 2. Electrolyte derangements: Corrected calcium 9.5. No supplementation required. 3. Acute on chronic kidney disease, stage III: Creatinine 1.79. Monitor with daily BMP. 4. Hematuria: Hdez catheter removed per protocol. Urinalysis obtained reveals 3+ blood with 101 RBC's. CPK level within normal limits. Renal ultrasound negative. Hemoglobin and hematocrit are decreased (likely dilutional). No active signs of bleeding. Could consider outpatient follow-up with urology. 5. Anemia: No active signs of bleeding. Likely dilutional. Monitor. Will obtain iron studies, peripheral smear, and reticulocyte count. 6. Diabetes mellitus with hyperglycemia and neuropathy: Continue with Levemir 45 units subcutaneously daily, bolus insulin before meals and at bedtime, fingersticks before meals and at bedtime, hypoglycemic protocol, and consistent carbohydrate diet. Continue Lyrica. 6. Recent diagnosis of atrial fibrillation: Cardiology consulted for vicenta- operative optimization. Patient was optimized and successfully underwent revision of right femur fracture. Continue Eliquis at 2.5mg by mouth twice daily. Continue Metoprolol and Amiodarone. 7. Depression: Continue Lexapro. 8. Gastroesophageal reflux disease: Continue famotidine and omeprazole. 9. Benign prostatic hyperplasia: Continue Flomax. 10. Chronic pain: Continue Tramadol. 11. Coronary artery disease status-post cardiac stenting: Follows with Dr. Johnson. Status-post stenting in 2000. 12. History of TIA/CVA: Residual left-sided weakness. Monitor. DISPOSITION: Physical and occupational therapy. ARU screening. [facility]O Vital Signs Date Time Temp Pulse Resp B/P (MAP) Pulse Ox O2 Delivery O2 Flow Rate FiO2 10/02/18 09:10 63 151/79 10/02/18 06:00 97.5 20 97 Room Air 10/01/18 12:34 2.0 I&O- Last 24 Hours up to 6 AM 10/02/18 06:00 Intake Total 2400 ml Output Total 750 ml Balance 1650 ml Laboratory Data 24H LABS Laboratory Tests 2 10/01/18 12:48: Bedside Glucose (Misc Panel) 297H 1/18/19 16:21: Bedside Glucose (Misc Panel) 268H 10/01/18 19:59: Bedside Glucose (Misc Panel) 238H 10/02/18 06:21: Immature Granulocyte % (Auto) 0.4, White Blood Count 7.2, Red Blood Count 3.35L, Hemoglobin 10.3L, Hematocrit 31.1L, Mean Corpuscular Volume 92.8, Mean Corpuscular Hemoglobin 30.7, Mean Corpuscular Hemoglobin Concent 33.1, Red Cell Distribution Width 13.2, Platelet Count 125L, Neutrophils (%) (Auto) 70.7H, Lymphocytes (%) (Auto) 17.6L, Monocytes (%) (Auto) 8.6H, Eosinophils (%) (Auto) 2.4, Basophils (%) (Auto) 0.3, Neutrophils # (Auto) 5.1, Lymphocytes # (Auto) 1.3L, Monocytes # (Auto) 0.6, Eosinophils # (Auto) 0.2, Basophils # (Auto) 0.0, Nucleated Red Blood Cells % (auto) 0.0, Anion Gap 6L, Glomerular Filtration Rate 40.3L, Blood Urea Nitrogen 30H, Creatinine 1.79H, Sodium Level 136, Potassium Level 4.0, Chloride Level 104, Carbon Dioxide Level 26, Calcium Level 7.9L, Aspartate Amino Transf (AST/SGOT) 20, Alanine Aminotransferase (ALT/SGPT) 20, Alkaline Phosphatase 67, Total Bilirubin 0.4, Total Protein 5.5L, Albumin 2.0L, Magnesium Level 2.1, Albumin/Globulin Ratio 0.57L CBC/BMP Laboratory Tests 10/02/18 06:21 Red Blood Count 3.35 L, Mean Corpuscular Volume 92.8, Mean Corpuscular Hemoglob in 30.7, Mean Corpuscular Hemoglobin Concent 33.1, Red Cell Distribution Width 13.2, Neutrophils (%) (Auto) 70.7 H, Lymphocytes (%) (Auto) 17.6 L, Monocytes (%) (Auto) 8.6 H, Eosinophils (%) (Auto) 2.4, Basophils (%) (Auto) 0.3, Neutrophils # (Auto) 5.1, Lymphocytes # (Auto) 1.3 L, Monocytes # (Auto) 0.6, Eosinophils # (Auto) 0.2, Basophils # (Auto) 0.0, Calcium Level 7.9 L, Aspartate Amino Transf (AST/SGOT) 20, Alanine Aminotransferase (ALT/SGPT) 20, Alkaline Phosphatase 67, Total Bilirubin 0.4, Total Protein 5.5 L, Albumin 2.0 L ELBERT SAM DO Oct 02, 2018 10:51
[2018-10-02 12:03] LABS: PERCENT SATURATION 9.2 % (19.7-50.0)
--- NOTE | 2018-10-02 13:41 | IPN ---
DATE: 10/02/2018 CHIEF COMPLAINT: Postoperative day two right hip open reduction internal fixation with TFN. HISTORY OF PRESENT ILLNESS: This 67-year-old man is now postoperative day two from right hip TFN for intertrochanteric hip fracture. He has been seen by the occupational therapy (OT) and physical therapy (PT) services apparently to try and mobilize him, once so far. When I saw him, he was doing reasonably well. He does complain about a little pain in the hip, but nothing down distally. No concerns from the nursing team, but they were saying he is a little bit slow to mobilize. PHYSICAL EXAMINATION: Vital Signs: Respiratory rate 18 on room air. No vital signs documented yet this morning. Yesterday at 2200, temperature 98.9, blood pressure 138/56, pulse rate 64. He is alert and oriented, but definitely somnolent this morning. His mood is normal, but again fairly somnolent. He is in no acute distress. He appears comfortable. Bulky dressing in situ on the right side. He has normal sensation throughout the foot. Foot is well perfused with good pedal pulses. He is able to wiggle his toes, dorsiflex and plantar flex his foot. ASSESSMENT AND PLAN: This 67-year-old man who is postoperative day two from a right hip TFN for intertrochanteric hip fracture is on Eliquis per his home dose for venous thromboembolism (VTE) prophylaxis. We would like him to mobilize weight bearing as tolerated. We will encourage this. He had his sequential compression dressings (SCDS) on while in bed. We will get his pain under control. Followup the rest of his lab work from today. Will see how he goes while in hospital.
[2018-10-02 14:00] VITALS: BP 140/68
[2018-10-02] MEDS: ASCORBIC ACID 500 MG TAB PO SCH (17:37)
[2018-10-02] MEDS: FERROUS SULFATE 325MG TAB PO SCH (17:37)
[2018-10-02 18:37] LABS: APPEARANCE, URINE CLEAR (CLEAR); BACTERIA, URINE AUTO NEGATIVE (NEGATIVE); BILIRUBIN, URINE AUTO NEGATIVE (NEGATIVE); BLOOD, URINE BLOOD 1+ (NEGATIVE); COLOR, URINE YELLOW (YELLOW); GLUCOSE, URINE (UA) AUTO 1+ mg/dL (NEGATIVE); KETONE, URINE AUTO NEGATIVE (NEGATIVE); LEUKOCYTE ESTERASE, URINE AUTO NEGATIVE (NEGATIVE); MUCUS, URINE SMALL (NEGATIVE); NITRITE, URINE AUTO NEGATIVE (NEGATIVE); PROTEIN, URINE AUTO NEGATIVE (NEGATIVE); RBC, URINE AUTO 1 /HPF (0-3); SPECIFIC GRAVITY URINE AUTO 1.009 (1.002-1.035); SQUAMOUS EPITHELIAL CELL UR AU 0 /HPF (0-6); UROBILINOGEN, URINE AUTO 0.2 mg/dL (0.0-2.0); WBC, URINE AUTO 1 /HPF (0-3)
[2018-10-02] MEDS: ATORVASTATIN 10 MG TAB PO SCH (20:17)
[2018-10-02] MEDS: SENOKOT S TAB PO SCH (20:18)
[2018-10-02 22:00] VITALS: BP 142/87
[2018-10-03] MEDS: PERCOCET 5MG/325MG TAB PO PRN ×4 (00:48→20:51)
[2018-10-03] MEDS: traMADol 50 MG TAB PO PRN (00:48)
[2018-10-03 06:00] VITALS: BP 156/63
[2018-10-03 06:04] LABS: BASO % 0.3 % (0.0-1.0); EOS # 0.2 10^3/uL (0.0-0.50); EOS % 3.2 % (0.0-3.0); HEMATOCRIT 30.6 % (42.0-52.0); HEMOGLOBIN 10.2 g/dl (13.5-17.5); LYMPH # 1.7 10^3/uL (1.5-4.5); LYMPH % 26.7 % (24.0-44.0); MEAN CORPUSCULAR HEMOGLOBIN 30.4 pg (27.0-33.0); MEAN CORPUSCULAR HGB CONC 33.3 g/dl (32.0-36.5); MEAN CORPUSCULAR VOLUME 91.1 fl (80.0-96.0); MONO # 0.6 10^3/uL (0.0-0.8); MONO % 8.6 % (0.0-5.0); NEUTROPHILS % 60.9 % (36.0-66.0); PLATELET COUNT, AUTOMATED 146 10^3/uL (150-450); RED BLOOD COUNT 3.36 10^6/uL (4.30-6.10); WHITE BLOOD COUNT 6.5 10^3/uL (4.0-10.0)
[2018-10-03 06:29] LABS: ALBUMIN 1.8 GM/DL (3.2-5.2); BILIRUBIN,TOTAL 0.4 MG/DL (0.2-1.0); CALCIUM LEVEL 7.9 MG/DL (8.8-10.2); CREATININE FOR GFR 1.65 MG/DL (0.70-1.30); GLOMERULAR FILTRATION RATE 44.3 (>49); MAGNESIUM LEVEL 2.2 MG/DL (1.8-2.4); POTASSIUM SERUM 4.1 MEQ/L (3.5-5.1); TOTAL PROTEIN 5.5 GM/DL (6.4-8.2)
[2018-10-03] MEDS: LEVEMIR (INSULIN DETEMIR) 1 UNITS/0.01ML SC SCH (09:04)
[2018-10-03] MEDS: HumaLOG INSULIN (NovoLOG) PER UNIT SC SCH ×4 (09:05→20:20)
[2018-10-03] MEDS: VITAMIN D 1,000 INTERNATIONAL UNITS TABLET PO SCH (09:05)
[2018-10-03] MEDS: APIXABAN 2.5 MG TAB (ELIQUIS) PO SCH ×2 (09:05→20:19)
[2018-10-03] MEDS: FAMOTIDINE 20 MG TAB PO SCH (09:05)
[2018-10-03] MEDS: buPROPion (WELLBUTRIN SR) 100 MG SR TAB PO SCH (09:05)
[2018-10-03] MEDS: TAMSULOSIN 0.4 MG CAP PO SCH (09:06)
[2018-10-03] MEDS: ASCORBIC ACID 500 MG TAB PO SCH (09:06)
[2018-10-03] MEDS: OMEPRAZOLE 20 MG CAP PO SCH (09:06)
[2018-10-03] MEDS: FERROUS SULFATE 325MG TAB PO SCH (09:06)
[2018-10-03] MEDS: AMIODARONE 200 MG TAB (PACERONE) PO SCH (09:06)
[2018-10-03] MEDS: SENOKOT S TAB PO SCH ×2 (09:06→20:19)
[2018-10-03] MEDS: METOPROLOL SUCC (TopROL XL) 100MG *XL* TAB PO SCH (09:06)
[2018-10-03] MEDS: PREGABALIN 75 MG CAP(LYRICA) PO SCH ×2 (09:07→20:19)
[2018-10-03] MEDS: ESCITALOPRAM OXALATE 10 MG TAB (LEXAPRO) PO SCH (09:07)
[2018-10-03 14:00] VITALS: BP 134/61
--- NOTE | 2018-10-03 14:34 | IPNPDOC ---
Text Note Date of Service The patient was seen on 10/03/18. NOTE Subjective: Patient was seen and examined at the bedside. This morning. Patient denies any chest pain, shortness of breath or palpitations. He denies nausea, vomiting, abdominal pain, constipation, diarrhea or discomfort with urination. He notes that he has been working with physical therapy, however, has not progressed well. Objective: Vitals (See below) General: Lying in bed, no acute distress, comfortable, AAOx3 HEENT: NC, AT CVS: RRR, +S1S2 Lungs: Fair air entry b/l, -w/r/r Abdomen: Soft, ND, NT Extremities: - Edema, - Calf tenderness, Assessment and plan: Mechanical fall with R Femur fracture - s/p correction on 09/30/2018 - Presented to the ER after patient had a mechanical fall and had severe right hip pain - s/p OR intervention with Dr. Broussard (09/30) - Has received cardiac clearance for Dr. Mnedez - c/w pain control and physical therapy at the direction of orthopedic surgery - Anticoagulation for A. fib / DVT prophylaxis has been resumed at home dose CKD3; s/p YULIANA - Cr baseline of ~1.8 - Creatinine appears to have improved Hematuria - likely 2/2 Hdez catheter - Urinalysis repeated does show improvement in the microhematuria Normocytic anemia - Currently does not appear to be having any signs of bleeding - Hemoglobin remained stable - Will continue to monitor IDDM2 with hyperglycemia - c/w ISS and Levemir Atrial fibrillation - c/w rate / rhythm control with metoprolol / amiodarone - c/w full anticoagulation with Eliquis CAD s/p stent (2000) - c/w Atorvastatin - Patient follows with cardiology, Dr. Johnson as an outpatient Hx of TIA with mild residual left-sided weakness - c/w Atorvastatin Depression - c/w Escitalopram BPH - c/w Tamsulosin Chronic pain - c/w Tramadol GERD - c/w Famotidine and Omeprazole DVT prophylaxis - c/w full anticoagulation with Eliquis Disposition: - Awaiting clinical improvement / likely CHINO placement VS,Fishbone, I+O VS, Fishbone, I+O Laboratory Tests 10/03/18 05:49 Red Blood Count 3.36 L, Mean Corpuscular Volume 91.1, Mean Corpuscular Hemoglobin 30.4, Mean Corpuscular Hemoglobin Concent 33.3, Red Cell Distribution Width 13.1, Neutrophils (%) (Auto) 60.9, Lymphocytes (%) (Auto) 26.7, Monocytes (%) (Auto) 8.6 H, Eosinophils (%) (Auto) 3.2 H, Basophils (%) (Auto) 0.3, Neutrophils # (Auto) 4.0, Lymphocytes # (Auto) 1.7, Monocytes # (Auto) 0.6, Eo sinophils # (Auto) 0.2, Basophils # (Auto) 0.0, Calcium Level 7.9 L, Aspartate Amino Transf (AST/SGOT) 21, Alanine Aminotransferase (ALT/SGPT) 22, Alkaline Phosphatase 66, Total Bilirubin 0.4, Total Protein 5.5 L, Albumin 1.8 L Vital Signs Date Time Temp Pulse Resp B/P (MAP) Pulse Ox O2 Delivery O2 Flow Rate FiO2 10/03/18 09:06 56 156/63 10/03/18 07:19 18 10/03/18 06:49 Room Air 10/03/18 06:00 97.8 96 10/01/18 12:34 2.0 I&O- Last 24 Hours up to 6 AM 10/03/18 06:00 Intake Total 2400 ml Output Total 1600 ml Balance 800 ml ROZ ENRIQUEZ MD Oct 03, 2018 14:34
[2018-10-03 20:00] VITALS: BP 158/79
[2018-10-03] MEDS: ATORVASTATIN 10 MG TAB PO SCH (20:19)
[2018-10-04] MEDS: PERCOCET 5MG/325MG TAB PO PRN ×3 (03:09→20:38)
[2018-10-04 06:00] VITALS: BP 158/74
[2018-10-04 06:06] LABS: BASO % 0.5 % (0.0-1.0); EOS # 0.2 10^3/uL (0.0-0.50); EOS % 3.3 % (0.0-3.0); HEMOGLOBIN 10.6 g/dl (13.5-17.5); LYMPH # 1.3 10^3/uL (1.5-4.5); MEAN CORPUSCULAR HEMOGLOBIN 30.4 pg (27.0-33.0); MEAN CORPUSCULAR HGB CONC 33.1 g/dl (32.0-36.5); MEAN CORPUSCULAR VOLUME 91.7 fl (80.0-96.0); MONO # 0.6 10^3/uL (0.0-0.8); MONO % 8.7 % (0.0-5.0); NEUTROPHILS # 4.2 10^3/uL (1.8-7.7); NEUTROPHILS % 66.2 % (36.0-66.0); PLATELET COUNT, AUTOMATED 179 10^3/uL (150-450); RED BLOOD COUNT 3.49 10^6/uL (4.30-6.10); WHITE BLOOD COUNT 6.3 10^3/uL (4.0-10.0)
[2018-10-04 06:39] LABS: ALBUMIN 1.8 GM/DL (3.2-5.2); BILIRUBIN,TOTAL 0.6 MG/DL (0.2-1.0); CREATININE FOR GFR 1.6 MG/DL (0.70-1.30); GLOMERULAR FILTRATION RATE 45.9 (>49); MAGNESIUM LEVEL 2.1 MG/DL (1.8-2.4); POTASSIUM SERUM 4.3 MEQ/L (3.5-5.1); TOTAL PROTEIN 5.6 GM/DL (6.4-8.2)
--- NOTE | 2018-10-04 06:54 | IPN ---
DATE: 10/03/2018 CHIEF COMPLAINT: Postoperative day 3, right hip TFN for intertrochanteric hip fracture. HISTORY OF PRESENT ILLNESS: This 67-year-old man was seen this morning in follow-up of his right hip open reduction internal fixation (ORIF). He is doing well. He still does complain about some pain in the right hip. According to him he has not been mobilizing terribly well. Other than that, no other concerns. No fevers, chills, sweat at night, or other constitutional symptoms. PHYSICAL EXAMINATION: Vital signs: 97.8 temperature, blood pressure 156/63, rate 56, 96% on room air. Inspection of his right hip reveals that they changed the dressing to a small cloth tape dressing. There is minimal strike through on the distal part. There is a moderate amount of swelling of the right hip. Minimal amount of bruising. Right foot he is able to wiggle his toes, dorsiflex and plantar flex his foot. Normal sensation throughout the foot. Foot is well perfused with good dorsalis pedis pulse. LABORATORY EXAMINATION: His hemoglobin this morning 10.2, white blood cell count 6.5. Chemistries are overall normal with a slightly increased chronic creatinine. ASSESSMENT/PLAN: This is 67-year-old man I have encouraged to mobilize. He is on apixaban for venous thromboembolism (VTE) prophylaxis. The most important thing for him at this point is to get up and mobilize and control his pain.
[2018-10-04] MEDS: AMIODARONE 200 MG TAB (PACERONE) PO SCH (08:13)
[2018-10-04] MEDS: buPROPion (WELLBUTRIN SR) 100 MG SR TAB PO SCH (08:13)
[2018-10-04] MEDS: LEVEMIR (INSULIN DETEMIR) 1 UNITS/0.01ML SC SCH (08:13)
[2018-10-04] MEDS: METOPROLOL SUCC (TopROL XL) 100MG *XL* TAB PO SCH (08:13)
[2018-10-04] MEDS: HumaLOG INSULIN (NovoLOG) PER UNIT SC SCH ×4 (08:13→20:41)
[2018-10-04] MEDS: FERROUS SULFATE 325MG TAB PO SCH (08:14)
[2018-10-04] MEDS: SENOKOT S TAB PO SCH ×2 (08:14→20:37)
[2018-10-04] MEDS: APIXABAN 2.5 MG TAB (ELIQUIS) PO SCH ×2 (08:14→20:38)
[2018-10-04] MEDS: TAMSULOSIN 0.4 MG CAP PO SCH (08:14)
[2018-10-04] MEDS: ESCITALOPRAM OXALATE 10 MG TAB (LEXAPRO) PO SCH (08:14)
[2018-10-04] MEDS: FAMOTIDINE 20 MG TAB PO SCH (08:14)
[2018-10-04] MEDS: ASCORBIC ACID 500 MG TAB PO SCH (08:14)
[2018-10-04] MEDS: PREGABALIN 75 MG CAP(LYRICA) PO SCH ×2 (08:14→20:37)
[2018-10-04] MEDS: OMEPRAZOLE 20 MG CAP PO SCH (08:14)
[2018-10-04] MEDS: VITAMIN D 1,000 INTERNATIONAL UNITS TABLET PO SCH (08:14)
[2018-10-04 10:54] LABS: FOLATE 8.7 NG/ML (>5.4)
--- NOTE | 2018-10-04 11:38 | IPNPDOC ---
Date Seen The patient was seen on 10/04/18. Progress Note Subjective: Patient was seen and examined at the bedside this morning. Patient denies any chest pain, shortness of breath or palpitations. He denies nausea, vomiting, abdominal pain, constipation, diarrhea or discomfort with urination. He is working with physical therapy. When he lays still his right hip pain is tolerable. With movement his pain does worsen to a 7/10. Objective: Vitals (See below) General: Lying in bed, no acute distress, comfortable, AAOx3 HEENT: NC, AT CVS: RRR, +S1S2 Lungs: Fair air entry b/l, -w/r/r Abdomen: Soft, ND, NT Extremities: - Edema, - Calf tenderness, dressing on right lateral hip with strike-through Assessment and plan: Mechanical fall with R Femur fracture - s/p correction on 09/30/2018 - Presented to the ER after patient had a mechanical fall and had severe right hip pain - s/p OR intervention with Dr. Matthews (09/30) - Has received cardiac clearance for Dr. Mendez - c/w pain control (home dose Tramadol and in-patient Percocet; s/p Morphine) and physical therapy at the direction of orthopedic surgery - Improvements made with PT; discharge to [facility] only - Anticoagulation for A. fib / DVT prophylaxis has been resumed at home dose CKD3; s/p YULIANA - Cr baseline of ~1.8 - Creatinine appears to have improved Hematuria - likely 2/2 Hdez catheter - Urinalysis repeated does show improvement in the microhematuria Normocytic anemia - Currently does not appear to be having any signs of bleeding - Hemoglobin remained stable - Will continue to monitor - c/w iron supplementation and vitamin C - Peripheral smear: normocytic anemia, no blast identified, minimal thrombocytopenia with normal platelet morphology IDDM2 with hyperglycemia - c/w ISS and Levemir Atrial fibrillation - c/w rate / rhythm control with metoprolol / amiodarone - c/w full anticoagulation with Eliquis CAD s/p stent (2000) - c/w Atorvastatin - Patient follows with cardiology, Dr. Johnson as an outpatient Hx of TIA with mild residual left-sided weakness - c/w Atorvastatin Depression - c/w Escitalopram BPH - c/w Tamsulosin Chronic pain - c/w Tramadol GERD - c/w Famotidine and Omeprazole DVT prophylaxis - c/w full anticoagulation with Eliquis Disposition: - Awaiting clinical improvement / likely CHINO placement VS[facility] Vital Signs Date Time Temp Pulse Resp B/P (MAP) Pulse Ox O2 Delivery O2 Flow Rate FiO2 10/04/18 08:13 54 158/74 10/04/18 06:00 97.6 18 93 Room Air 10/01/18 12:34 2.0 I&O- Last 24 Hours up to 6 AM 10/04/18 06:00 Intake Total 1060 ml Output Total 625 ml Balance 435 ml Laboratory Data 24H LABS Laboratory Tests 2 10/03/18 16:19: Bedside Glucose (Misc Panel) 214H 10/03/18 19:35: Bedside Glucose (Misc Panel) 229H 10/04/18 05:28: Immature Granulocyte % (Auto) 0.3, White Blood Count 6.3, Red Blood Count 3.49L, Hemoglobin 10.6L, Hematocrit 32.0L, Mean Corpuscular Volume 91.7, Mean Corpuscular Hemoglobin 30.4, Mean Corpuscular Hemoglobin Concent 33.1, Red Cell Distribution Width 13.2, Platelet Count 179, Neutrophils (%) (Auto) 66.2H, Lymphocytes (%) (Auto) 21.0L, Monocytes (%) (Auto) 8.7H, Eosinophils (%) (Auto) 3.3H, Basophils (%) (Auto) 0.5, Neutrophils # (Auto) 4.2, Lymphocytes # (Auto) 1 .3L, Monocytes # (Auto) 0.6, Eosinophils # (Auto) 0.2, Basophils # (Auto) 0.0, Nucleated Red Blood Cells % (auto) 0.0, Anion Gap 5L, Glomerular Filtration Rate 45.9L, Blood Urea Nitrogen 35H, Creatinine 1.60H, Sodium Level 137, Potassium Level 4.3, Chloride Level 105, Carbon Dioxide Level 27, Calcium Level 8.0L, Aspartate Amino Transf (AST/SGOT) 26, Alanine Aminotransferase (ALT/SGPT) 29, Alkaline Phosphatase 67, Total Bilirubin 0.6, Total Protein 5.6L, Albumin 1.8L, Magnesium Level 2.1, Albumin/Globulin Ratio 0.47L 10/04/18 11:19: Bedside Glucose (Misc Panel) 177H CBC/BMP Laboratory Tests 10/04/18 05:28 Red Blood Count 3.49 L, Mean Corpuscular Volume 91.7, Mean Corpuscular Hemoglobin 30.4, Mean Corpuscular Hemoglobin Concent 33.1, Red Cell Distribution Width 13.2, Neutrophils (%) (Auto) 66.2 H, Lymphocytes (%) (Auto) 21.0 L, Monocytes (%) (Auto) 8.7 H, Eosinophils (%) (Auto) 3.3 H, Basophils (%) (Auto) 0.5, Neutrophils # (Auto) 4.2, Lymphocytes # (Auto) 1.3 L, Monocytes # (Auto) 0.6, Eosinophils # (Auto) 0.2, Basophils # (Auto) 0.0, Calcium Level 8.0 L, Aspartate Amino Transf (AST/SGOT) 26, Alanine Aminotransferase (ALT/SGPT) 29, Alkaline Phosphatase 67, Total Bilirubin 0.6, Total Protein 5.6 L, Albumin 1.8 L ELBERT SAM DO Oct 04, 2018 11:38
[2018-10-04 14:00] VITALS: BP 125/56
[2018-10-04] MEDS: traMADol 50 MG TAB PO PRN (16:07)
[2018-10-04] MEDS: ATORVASTATIN 10 MG TAB PO SCH (20:37)
[2018-10-05 06:00] VITALS: BP 126/58
[2018-10-05 06:21] LABS: BASO % 0.3 % (0.0-1.0); EOS # 0.2 10^3/uL (0.0-0.50); EOS % 2.5 % (0.0-3.0); HEMOGLOBIN 10.8 g/dl (13.5-17.5); LYMPH # 1.2 10^3/uL (1.5-4.5); LYMPH % 18.1 % (24.0-44.0); MEAN CORPUSCULAR HEMOGLOBIN 30.4 pg (27.0-33.0); MEAN CORPUSCULAR HGB CONC 32.7 g/dl (32.0-36.5); MONO # 0.5 10^3/uL (0.0-0.8); MONO % 7.8 % (0.0-5.0); NEUTROPHILS # 4.8 10^3/uL (1.8-7.7); NEUTROPHILS % 70.9 % (36.0-66.0); PLATELET COUNT, AUTOMATED 201 10^3/uL (150-450); RED BLOOD COUNT 3.55 10^6/uL (4.30-6.10); WHITE BLOOD COUNT 6.8 10^3/uL (4.0-10.0)
[2018-10-05 06:40] LABS: BILIRUBIN,TOTAL 0.6 MG/DL (0.2-1.0); CREATININE FOR GFR 1.65 MG/DL (0.70-1.30); GLOMERULAR FILTRATION RATE 44.3 (>49); MAGNESIUM LEVEL 2.3 MG/DL (1.8-2.4); POTASSIUM SERUM 4.3 MEQ/L (3.5-5.1); TOTAL PROTEIN 5.8 GM/DL (6.4-8.2)
--- NOTE | 2018-10-05 08:21 | IPN ---
DATE OF SERVICE: 10/01/2018 CHIEF COMPLAINT: Followup postoperative day #1 right hip TFN. HISTORY OF PRESENT ILLNESS: 67-year-old man had an intertrochanteric hip fracture on his right side. He is seen today, postoperative day #1. He is doing well. He complains about a little bit of soreness in the right hip and a little bit in the ankle, but no swelling or numbness and tingling are noted. He is alert and oriented and converses appropriately. PHYSICAL EXAMINATION: Vital signs: Temperature 98.4. Blood pressure 147/69. Pulse of 67. 97% on 2 liters nasal prongs. Respiratory rate 20. Inspection of the right hip reveals bulky dressing to be in situ but no evidence of strikethrough. I left it in place. I examined his right ankle as he was complaining about a little bit of pain there. On inspection, there is no obvious deformity, ecchymosis, redness, or swelling. There is a little bit of soreness along the lateral ankle but minimal at the medial or lateral malleolus. He has normal sensation throughout the foot and the superficial and deep peroneal nerves as well as saphenous, sural, and tibial. He is able to wiggle his toes, dorsiflex and plantarflex his foot. The foot is warm and now well perfused. Movement of the foot did cause him some hip pain. INVESTIGATIONS: His hemoglobin preoperatively was 11.4 and this morning was 10.9. White blood cell count 7.5. ASSESSMENT AND PLAN: This is a 67-year-old man postoperative day #1 from right hip TFNA. We will mobilize and weightbearing as tolerated. We will place him back on his Eliquis for venous thromboembolism (VTE) prophylaxis. Pain control will be achieved. I will monitor the right ankle pain. We will followup his blood work tomorrow. No transfusion needed.
[2018-10-05] MEDS: VITAMIN D 1,000 INTERNATIONAL UNITS TABLET PO SCH (08:27)
[2018-10-05] MEDS: LEVEMIR (INSULIN DETEMIR) 1 UNITS/0.01ML SC SCH (08:27)
[2018-10-05] MEDS: HumaLOG INSULIN (NovoLOG) PER UNIT SC SCH ×4 (08:27→21:00)
[2018-10-05] MEDS: FAMOTIDINE 20 MG TAB PO SCH (08:27)
[2018-10-05] MEDS: OMEPRAZOLE 20 MG CAP PO SCH (08:27)
[2018-10-05] MEDS: FERROUS SULFATE 325MG TAB PO SCH (08:28)
[2018-10-05] MEDS: APIXABAN 2.5 MG TAB (ELIQUIS) PO SCH ×2 (08:28→21:03)
[2018-10-05] MEDS: PREGABALIN 75 MG CAP(LYRICA) PO SCH ×2 (08:28→21:03)
[2018-10-05] MEDS: AMIODARONE 200 MG TAB (PACERONE) PO SCH (08:28)
[2018-10-05] MEDS: buPROPion (WELLBUTRIN SR) 100 MG SR TAB PO SCH (08:28)
[2018-10-05] MEDS: ESCITALOPRAM OXALATE 10 MG TAB (LEXAPRO) PO SCH (08:28)
[2018-10-05] MEDS: METOPROLOL SUCC (TopROL XL) 100MG *XL* TAB PO SCH (08:28)
[2018-10-05] MEDS: SENOKOT S TAB PO SCH (08:28)
[2018-10-05] MEDS: TAMSULOSIN 0.4 MG CAP PO SCH (08:28)
[2018-10-05] MEDS: ASCORBIC ACID 500 MG TAB PO SCH (08:28)
[2018-10-05] MEDS ORDERED: SENOKOT S TAB PO PRN (11:00)
--- NOTE | 2018-10-05 11:00 | IPNPDOC ---
Date Seen The patient was seen on 10/05/18. Progress Note SUBJECTIVE: Patient is a 67-year-old male with mechanical fall resulting in right intertrochanteric femur fracture. Patient is evaluated at bedside this morning. Status-post surgical repair on 09/30/2018. Patient denies chest pain, shortness of breath, nausea, vomiting, abdominal pain. He reports that he does have some pain and stiffness in his right hip for which physical and occupational therapy have been ordered. OBJECTIVE PHYSICAL EXAMINATION: VITAL SIGNS: Please see below. GENERAL: Well nourished, well developed male, alert and conversant, answers questions appropriately, laying in the supine position in hospital bed, appropriately dressed in hospital attire, no acute distress, appears uncomfortable. HEENT: Atraumatic, normocephalic, PERRL, EOMI, oral mucosa appears pink and moist, Mallampati class III, dentition is in poor condition, no lymphadenopathy, trachea midline, no thyromegaly. CARDIOVASCULAR: On palpation heart rate is regular with a regular rhythm, normal S1 and S2, no murmur, rub, click. RESPIRATORY: Clear to auscultation bilaterally, adequate inspiratory and expiratory airway excursion, symmetric airway entry, no focal consolidations, no wheeze, rhonchi, crackles. ABDOMINAL: Round, soft, non-tender, non-distended, bowel sounds appreciated throughout, no organomegaly, no rebound, no guarding. EXTREMITIES: Knee-high compression stockings noted on the right lower extremity, anti-skid socks noted on bilateral feet, no cyanosis, no clubbing, peripheral edema, dressings noted on right lateral hip with strikethrough noted, callus noted on left hallux. NEUROLOGICAL: No focal neurological deficits. PSYCHOLOGICAL: Mood and affect appropriate. LABORATORY DATA, IMAGING STUDIES, MICROBIOLOGY: Please see below. Echocardiogram: Left ventricular hypertrophy with preserved systolic function, left ventricular diastolic dysfunction, mild pulmonary hypertension. DVT prophylaxis ordered?: Eliquis 2.5mg by mouth twice daily. ASSESSMENT AND PLAN: This is a 67-year-old male with mechanical fall resulting in right intertrochanteric femur fracture. PROBLEMS: 1. Mechanical fall resulting in right intertrochanteric femur fracture: Orthopedics consulted. Status-post TFNA / IM nail right hip on 09/30/2018. Continue Eliquis 2.5mg by mouth twice daily for anticoagulation. Physical, occupational therapy have been ordered. Screening for ARU has been ordered. Continue Tramadol. Patient is on Percocet 1 tab by mouth every 4 hours as needeD. Morphine has been discontinued. Fentanyl discontinued. Patient may need prolonged acute rehabilitation. 2. Electrolyte derangements: Corrected calcium 9.6. No supplementation requir ed. 3. Acute on chronic kidney disease, stage III: Creatinine 1.65. Monitor with daily BMP. Adequate urinary output. 4. Hematuria: Status post Hdez catheter. Follow-up urinalysis has normalized. C ould consider outpatient follow-up with urology. 5. Iron deficiency Anemia: Started iron supplementation with vitamin C. Peripheral smear reveals "normocytic anemia, no blocks identified, minimal th rombus cytopenia with normal platelet morphology." Folate 8.7. Vitamin B12 level pending. Absolute reticulocyte count 1.3 with a reticulocyte index 0.84. This could indicate some hypo-proliferation. No active signs of bleeding. 6. Diabetes mellitus with hyperglycemia and neuropathy: Continue with Levemir 45 units subcutaneously daily, bolus insulin before meals and at bedtime, fingersticks before meals and at bedtime, hypoglycemic protocol, and consistent carbohydrate diet. Continue Lyrica. 6. Recent diagnosis of atrial fibrillation: Continue to Eliquis, metoprolol, and amiodarone. 7. Depression: Continue Lexapro. 8. Gastroesophageal reflux disease: Continue famotidine and omeprazole. 9. Benign prostatic hyperplasia: Continue Flomax. 10. Chronic pain: Continue Tramadol. 11. Coronary artery disease status-post cardiac stenting: Follows with Dr. Johnson. Status-post stenting in 2000. 12. History of TIA/CVA: Residual left-sided weakness. Monitor. DISPOSITION: Physical and occupational therapy. ARU screening. VS, I&O, 24H, Fishbone Vital Signs/I&O Vital Signs Date Time Temp Pulse Resp B/P (MAP) Pulse Ox O2 Delivery O2 Flow Rate FiO2 10/05/18 08:28 56 126/58 10/05/18 06:00 98.4 18 91 10/04/18 20:00 Room Air 10/01/18 12:34 2.0 I&O- Last 24 Hours up to 6 AM0 10/05/18 06:00 Intake Total 1640 ml Output Total 1200 ml Balance 440 ml Laboratory Data 24H LABS Laboratory Tests 2 10/04/18 11:19: Bedside Glucose (Misc Panel) 177H 10/04/18 16:42: Bedside Glucose (Misc Panel) 175H 10/04/18 20:02: Bedside Glucose (Misc Panel) 184H 10/05/18 05:56: Immature Granulocyte % (Auto) 0.4, White Blood Count 6.8, Red Blood Count 3.55L, Hemoglobin 10.8L, Hematocrit 33.0L, Mean Corpuscular Volume 93.0, Mean Corpuscular Hemoglobin 30.4, Mean Corpuscular Hemoglobin Concent 32.7, Red Cell Distribution Width 13.2, Platelet Count 201, Neutrophils (%) (Auto) 70.9H, Lymphocytes (%) (Auto) 18.1L, Monocytes (%) (Auto) 7.8H, Eosinophils (%) (Auto) 2.5, Basophils (%) (Auto) 0.3, Neutrophils # (Auto) 4.8, Lymphocytes # (Auto) 1.2L, Monocytes # (Auto) 0.5, Eosinophils # (Auto) 0.2, Basophils # (Auto) 0.0, Nucleated Red Blood Cells % (auto) 0.0, Anion Gap 6L, Glomerular Filtration Rate 44.3L, Blood Urea Nitrogen 39H, Creatinine 1.65H, Sodium Level 137, Potassium Level 4.3, Chloride Level 106, Carbon Dioxide Level 25, Calcium Level 8.0L, Aspartate Amino Transf (AST/SGOT) 25, Alanine Aminotransferase (ALT/SGPT) 29, Alkaline Phosphatase 76, Total Bilirubin 0.6, Total Protein 5.8L, Albumin 2.0L, Magnesium Level 2.3, Albumin/Globulin Ratio 0.53L 10/05/18 06:28: Bedside Glucose (Misc Panel) 154H CBC/BMP Laboratory Tests 10/05/18 05:56 Red Blood Count 3.55 L, Mean Corpuscular Volume 93.0, Mean Corpuscular Hemoglobin 30.4, Mean Corpuscular Hemoglobin Concent 32.7, Red Cell Distribution Width 13.2, Neutrophils (%) (Auto) 70.9 H, Lymphocytes (%) (Auto) 18.1 L, Monocytes (%) (Auto) 7.8 H, Eosinophils (%) (Auto) 2.5, Basophils (%) (Auto) 0.3, Neutrophils # (Auto) 4.8, Lymphocytes # (Auto) 1.2 L, Monocytes # (Auto) 0.5, Eosinophils # (Auto) 0.2, Basophils # (Auto) 0.0, Calcium Level 8.0 L, As partate Amino Transf (AST/SGOT) 25, Alanine Aminotransferase (ALT/SGPT) 29, Alkaline Phosphatase 76, Total Bilirubin 0.6, Total Protein 5.8 L, Albumin 2.0 L ELBERT SAM DO Oct 05, 2018 11:00
--- NOTE | 2018-10-05 12:34 | IPN ---
DATE: 10/05/2018 CHIEF COMPLAINT: Postoperative day #5 right hip trochanteric fixation nailing (TFN) for intertrochanteric hip fracture. HISTORY OF PRESENT ILLNESS: This 67-year-old man was seen today at [facility] [address] [place] [address] at [facility]. He is doing well. He is definitely slowly to mobilize and he recognizes that. He is still having a little of pain, difficulty moving around his right leg. Other than that, he has no specific concerns. The nurses did not voice any concerns of this man either aside from just being slow to mobilize. He had long and lengthy story about his daughter also being in hospital related to some about her knee. PHYSICAL EXAMINATION: Vital signs: Temperature 98.4, blood pressure 126/58, pulse rate 56, pulse oximetry 91%, 18 respiratory rate on room air. Alert and oriented times three. He converses appropriately. Mood and affect is normal. Inspection of his right lower extremity revealed the second stab incision to have a little bit on the dressing. The other dressings are dry. The thigh compartment is soft. Moderate amount of swelling. Normal sensation throughout his foot and able to wiggle his toes and dorsiflex and plantarflex his foot. The foot is warm and well perfused with a strong tibialis posterior pulse. LABORATORY EXAMINATION: Hemoglobin 10.8. White blood cell count 6.8. Electrolytes were normal. However, his creatinine is chronically high at 1.65. ASSESSMENT AND PLAN: This 67-year-old man needs to get up and mobilize. That is his primary goal. For venous thromboembolism (VTE) prophylaxis, he is on Eliquis, which he was on before at home. He is on 2.5 mg by mouth twice a day at best. We will follow him while he is in hospital.
[2018-10-05 14:00] VITALS: BP 133/74
[2018-10-05] MEDS: ATORVASTATIN 10 MG TAB PO SCH (21:03)
[2018-10-05] MEDS: PERCOCET 5MG/325MG TAB PO PRN (21:04)
[2018-10-05 22:00] VITALS: BP 127/61
[2018-10-06 06:00] VITALS: BP 132/66
[2018-10-06 06:43] LABS: HEMATOCRIT 30.9 % (42.0-52.0); HEMOGLOBIN 10.1 g/dl (13.5-17.5); MEAN CORPUSCULAR HEMOGLOBIN 30.4 pg (27.0-33.0); MEAN CORPUSCULAR HGB CONC 32.7 g/dl (32.0-36.5); MEAN CORPUSCULAR VOLUME 93.1 fl (80.0-96.0); PLATELET COUNT, AUTOMATED 199 10^3/uL (150-450); RED BLOOD COUNT 3.32 10^6/uL (4.30-6.10)
[2018-10-06 06:51] LABS: CALCIUM LEVEL 8.3 MG/DL (8.8-10.2); CREATININE FOR GFR 1.7 MG/DL (0.70-1.30); GLOMERULAR FILTRATION RATE 42.8 (>49)
[2018-10-06] MEDS: HumaLOG INSULIN (NovoLOG) PER UNIT SC SCH ×2 (08:43→12:06)
[2018-10-06 08:44] VITALS: BP 132/66
[2018-10-06] MEDS: APIXABAN 2.5 MG TAB (ELIQUIS) PO SCH (08:44)
[2018-10-06] MEDS: PREGABALIN 75 MG CAP(LYRICA) PO SCH (08:44)
[2018-10-06] MEDS: VITAMIN D 1,000 INTERNATIONAL UNITS TABLET PO SCH (08:44)
[2018-10-06] MEDS: OMEPRAZOLE 20 MG CAP PO SCH (08:44)
[2018-10-06] MEDS: FERROUS SULFATE 325MG TAB PO SCH (08:44)
[2018-10-06] MEDS: FAMOTIDINE 20 MG TAB PO SCH (08:44)
[2018-10-06] MEDS: AMIODARONE 200 MG TAB (PACERONE) PO SCH (08:44)
[2018-10-06] MEDS: buPROPion (WELLBUTRIN SR) 100 MG SR TAB PO SCH (08:44)
[2018-10-06] MEDS: LEVEMIR (INSULIN DETEMIR) 1 UNITS/0.01ML SC SCH (08:44)
[2018-10-06] MEDS: METOPROLOL SUCC (TopROL XL) 100MG *XL* TAB PO SCH (08:44)
[2018-10-06] MEDS: TAMSULOSIN 0.4 MG CAP PO SCH (08:44)
[2018-10-06] MEDS: ASCORBIC ACID 500 MG TAB PO SCH (08:45)
[2018-10-06] MEDS: ESCITALOPRAM OXALATE 10 MG TAB (LEXAPRO) PO SCH (08:45)
[2018-10-06] MEDS ORDERED: ATOR1TAB19 PO (11:39)
[2018-10-06] MEDS ORDERED: TRAM50TA2 PO (11:39)
[2018-10-06] MEDS ORDERED: BUPR10TASR PO (11:39)
[2018-10-06] MEDS ORDERED: VITAD1000T PO (11:39)
[2018-10-06] MEDS ORDERED: ESCI10TA2 PO (11:39)
[2018-10-06] MEDS ORDERED: OMEP20CA3 PO (11:39)
[2018-10-06] MEDS ORDERED: FAMO20TA PO (11:39)
[2018-10-06] MEDS ORDERED: METO1TAB33 PO (11:39)
[2018-10-06] MEDS ORDERED: ELIQ2.5T PO (11:39)
[2018-10-06] MEDS ORDERED: FERR1TAB8 PO (11:39)
[2018-10-06] MEDS ORDERED: INSUHUMDS SC ×2 (11:39)
[2018-10-06] MEDS ORDERED: Acetaminophen Tab PO (11:39)
[2018-10-06] MEDS ORDERED: GLUC4CHW19 PO (11:39)
[2018-10-06] MEDS ORDERED: DEXT50IN6 IV (11:39)
[2018-10-06] MEDS ORDERED: GLUC1INJ21 SC (11:39)
[2018-10-06] MEDS ORDERED: PERCOCET PO (11:39)
[2018-10-06] MEDS ORDERED: INSUDET SC (11:39)
[2018-10-06] MEDS ORDERED: VITA500T PO (11:39)
[2018-10-06] MEDS ORDERED: LYRI75CA PO (11:39)
[2018-10-06] MEDS ORDERED: AMIO200T PO (11:39)
[2018-10-06] MEDS ORDERED: FLOM0.4C39 PO (11:39)
[2018-10-06] MEDS: PERCOCET 5MG/325MG TAB PO PRN (12:06)
[2018-10-06 14:00] VITALS: BP 135/66
[2018-10-06] MEDS: traMADol 50 MG TAB PO PRN (14:52)
--- NOTE | 2018-10-06 17:28 | DS.PDOC ---
Discharge Summary General Date of Admission Sep 28, 2018 at 00:33 Date of Discharge 10/06/2018 Attending Physician: AIDA SAMPSON MD Specialist/Consultants Involve: MAKAYLA CHIN MD Specialist/Consultants Involve Cardiology: Dr. eMndez Discharge Summary PROCEDURES PERFORMED DURING STAY: 1. Transthoracic echocardiogram - Left ventricular hypertrophy, preserved systolic function, left ventricular diastolic dysfunction, mild pulmonary hypertension. 2. TFNA / IM nail of right hip. ADMITTING DIAGNOSES: 1. Mechanical fall. 2. Right hip fracture. DISCHARGE DIAGNOSES: 1. Mechanical fall. 2. Right intertrochanteric femur fracture. 3. TFNA / Im nail right hip. 4. Hypokalemia. 5. Acute on chronic kidney disease. 6. Hematuria. 7. Normocytic anemia. 8. Diabetes mellitus. 9. Diabetic neuropathy. 10. Recent diagnosis of atrial fibrillation. 11. Depression. 12. Gastroesophageal reflux disease. 13. Benign prostatic hyperplasia. 14. Chronic pain. 15. Coronary artery disease status-post cardiac stenting. 16. History of cerebrovascular accident. COMPLICATIONS/CHIEF COMPLAINT: Fall, Hip Fracture, Right. HISTORY OF PRESENT ILLNESS: Mr. Mills is a 67-year-old man with medical history significant for diabetes, hypertension, hyperlipidemia, CAD status post PCI 2000, GERD and CHF. Patient reports being in his usual state of health until this evening while visiting his daughter at her place of employment when he slipped and fell on his right hip to the ground. He subsequently felt pain and was unable to raise off the ground. Activated EMS and presented to the emergency room. Daughter was at bedside during interview and she reported that this is the second time that he has had fall incidents. He denies any dizziness, blurry visions. He denies any chest pain, palpitations, no fevers, no chills. No cough, no shortness of breath, but he has been having episodes of unsteady gait and falls. He was seen at bedside with dry heaves, but no history of vomiting. No change in his bowel or urinary habits. She was evaluated in the emergency room with imaging revealing right intertrochanteric femoral fracture. His chest x-ray reveals cardiomegaly but no acute chest findings. Dr. Chin will see patient on consult. HOSPITAL COURSE: Patient was admitted for further medical management. Orthopedics was consulted. Recommended bedrest until surgery. Recommended Portillo's traction to provide comfort. Started intravenous fluid resuscitation. Provided Morphine and Percocet for pain management. Morphine eventually discontinued. Episode of mental status change with imaging and other investigations ordered which were unrevealing. Hematuria noted on urinalysis with repeat urinalysis revealing resolution. Possibly due to traumatic Hdez catheter insertion. Could consider out-patient urology follow-up. Anemia noted on labs. Subsequent evaluation revealed possible iron deficiency which was supplemented. Continued Percocet and home dose of Tramadol. Held patient's Eliquis. Last dose was on 09/27/2018. Optimized patient for upcoming surgery. Cardiology consulted due to patient's cardiac history. Obtained out-patient cardiology records. Underwent recent stress test in 05/2018 with no evidence of ischemia. Patient off anticoagulants for 72 hours and may proceed with surgery. Anticoagulation to be restarted after surgery once stable. Echocardiogram obtained as resulted above. Nothing by mouth prior to surgery. Managed medications appropriately in the pre- and post-operative period. Surgery performed on 09/30/2018. Orthopedics recommends weight bearing as tolerated. Physical and occupational therapy ordered with acute rehabilitation unit screen ordered. Patient accepted to ARU for continued therapy. Electrolyte derangements supplemented appropriately. Patient stable at time of discharge to ARU for continued therapy. DISCHARGE MEDICATIONS: Please see below. ALLERGIES: Please see below. PHYSICAL EXAMINATION ON DISCHARGE: VITAL SIGNS: Please see below. GENERAL: Well nourished, well developed male, alert and conversant, answers questions appropriately, laying in the supine position in hospital bed, appropriately dressed in hospital attire, no acute distress, appears uncomf ortable. HEENT: Atraumatic, normocephalic, PERRL, EOMI, oral mucosa appears pink and moist, Mallampati class III, dentition is in poor condition, no lymphadenopathy, trachea midline, no thyromegaly. CARDIOVASCULAR: On palpation heart rate is regular with a regular rhythm, normal S1 and S2, no murmur, rub, click. RESPIRATORY: Clear to auscultation bilaterally, adequate inspiratory and expiratory airway excursion, symmetric airway entry, no focal consolidations, no wheeze, rhonchi, crackles. ABDOMINAL: Round, soft, non-tender, non-distended, bowel sounds appreciated throughout, no organomegaly, no rebound, no guarding. EXTREMITIES: Knee-high compression stockings noted on the right lower extremity, anti-skid socks noted on bilateral feet, no cyanosis, no clubbing, peripheral edema, dressings noted on right lateral hip with strikethrough noted, callus noted on left hallux. NEUROLOGICAL: No focal neurological deficits. PSYCHOLOGICAL: Mood and affect appropriate. LABORATORY DATA: Please see below. IMAGIN. Right knee x-ray on 09/27/2018 - no acute fracture or dislocation. 2. Right hip and pelvis AP and lateral x-ray on 09/27/2018 - intertrochanteric fracture of right hip overlying swelling. 3. CT head without contrast on 09/27/2018 - no fracture, no bleed. 4. CT cervical spine without contrast on 09/27/2018 - no fracture. 5. Chest x-ray, 1 view on 09/27/2018 - no acute process. 6. Right femur x-ray on 09/28/2018 - intertrochanteric fracture right femur. 7. CT head without contrast on 09/29/2018 - no intracranial pathology. 8. Portable chest x-ray on 09/29/2018 - no acute findings. 9. Renal ultrasound on 09/29/2018 - Hdez catheter in bladder. 10. Right hip x-ray in OR on 09/30/2018 - [facility]. PROGNOSIS: Stable. ACTIVITY: As outlined by ARU. DIET: Consistent carbohydrates. DISCHARGE PLAN: Goal: Improve health & wellness Instructions: Follow DC Instruction Problem: health at ARU DISPOSITION: [facility] DISCHARGE INSTRUCTIONS: 1. Continue PT/OT in ARU. 2. Follow-up with primary care provider, Dr. Levy, in 7-10 days once discharge from ARU. 3. Take all medications as prescribed. ITEMS TO FOLLOWUP ON ON OUTPATIENT: 1. Hematuria. 2. Atrial fibrillation. DISCHARGE CONDITION: Stable. TIME SPENT ON DISCHARGE: Greater than 30 minutes. Vital Signs/I&Os Vital Signs Date Time Temp Pulse Resp B/P (MAP) Pulse Ox O2 Delivery O2 Flow Rate FiO2 10/06/18 15:22 18 10/06/18 14:00 97.6 54 135/66 (89) 94 Room Air 10/01/18 12:34 2.0 I&O- Last 24 Hours up to 6 AM 10/06/18 06:00 Intake Total 960 ml Output Total 600 ml Balance 360 ml Laboratory Data Labs 24H Laboratory Tests 2 10/05/18 16:49: Bedside Glucose (Misc Panel) 166H 10/05/18 20:41: Bedside Glucose (Misc Panel) 161H 10/06/18 06:00: Nucleated Red Blood Cells % (auto) 0.0, Anion Gap 7L, Glomerular Filtration Rate 42.8L, Blood Urea Nitrogen 45H, Creatinine 1.70H, Sodium Level 139, Potassium Level 4.0, Chloride Level 107, Carbon Dioxide Level 25, Calcium Level 8.3L 10/06/18 11:26: Bedside Glucose (Misc Panel) 216H CBC/BMP Laboratory Tests 10/06/18 06:00 Red Blood Count 3.32 L, Mean Corpuscular Volume 93.1, Mean Corpuscular Hemoglobin 30.4, Mean Corpuscular Hemoglobin Concent 32.7, Red Cell Distribution Width 13.3, Calcium Level 8.3 L FSBS Laboratory Tests Test 10/05/18 16:49 10/05/18 20:41 10/06/18 11:26 Range/Units Bedside Glucose (Misc Panel) 166 161 216 80-115 MG/DL Discharge Medications Scheduled Amiodarone HCl (Amiodarone HCl) 200 Mg Tab, 200 MG PO DAILY Apixaban Base (Eliquis) 2.5 Mg Tab, 2.5 MG PO BID Ascorbic Acid (Vitamin C) 500 Mg Tab, 500 MG PO DAILY Atorvastatin Calcium (Atorvastatin Calcium) 10 Mg Tab, 10 MG PO QHS Bupropion Hcl (Wellbutrin Sr) 100 Mg Tabsr, 100 MG PO DAILY Escitalopram Oxalate (Escitalopram Oxalate) 10 Mg Tab, 20 MG PO DAILY Famotidine (Pepcid) 20 Mg Tab, 20 MG PO DAILY Ferrous Sulfate (Ferrous Sulfate) 325 Mg Tab, 325 MG PO DAILY Insulin Detemir (Levemir) 1 Units/0.01 Ml Susp, 45 UNITS SC DAILY Insulin Human Lispro (Humalog) 1 Units/0.01 Ml Inj, 0 UNITS SC AC Insulin Human Lispro (Humalog) 1 Units/0.01 Ml Inj, 0 UNITS SC QHS Metoprolol Succinate (Metoprolol Succinate ER) 100 Mg Tab, 100 MG PO DAILY Omeprazole (Omeprazole) 20 Mg Cap, 20 MG PO DAILY Pregabalin (Lyrica) 75 Mg Cap, 150 MG PO BID Tamsulosin Hydrochloride (Flomax) 0.4 Mg Cap, 0.4 MG PO DAILY Vitamin D (Vitamin D3) 1,000 Units Tab, 1,000 UNITS PO DAILY Scheduled PRN Dextrose (Dextrose 50%) 50 % Inj, 25 ML IV ASDIRECTED PRN for SEE LABEL COMMENTS Glucagon (Glucagen Diagnostic) 1 Mg Inj, 1 MG SC ASDIRECTED PRN for SEE LABEL COMMENTS Glucose (Glucose) 4 Gm Chw, 0 GM PO ASDIRECTED PRN for SEE LABEL COMMENTS Oxycodone/Acetaminophen (Percocet 5MG/325MG Tablet) 1 Tab Tab, 1 TAB PO Q4HP PRN for MODERATE PAIN (PS 5-7) Tramadol HCl (Tramadol HCl) 50 Mg Tab, 50 MG PO BID PRN for PAIN [Acetaminophen Tab] 325 MG/TAB TAB, 650 MG PO Q4HP PRN for MILD PAIN OR FEVER Allergies Coded Allergies: Latex (Verified Allergy, Unknown, Hives, 09/28/18) had reaction to rubber gloves-hives Penicillins (Verified Allergy, Unknown, 01/07/14) ELBERT SAM DO Oct 06, 2018 16:55
== END 2018-10-06 15:55 | DRG 481 ==
LOC: M ED 22:06 → M ED INP 09-28 00:33 → M MSPAV 09-28 02:45 → M MS5PR 09-29 16:30
PROVIDERS: ADMIT Hospitalist; ATTEND Internal Medicine
PROC: 0QS604Z Reposition Right Upper Femur with Internal Fixation Device, Open Approach (ICD-10-PCS; principal; 2018-09-30 12:15)
DX: S72.041A Displaced fracture of base of neck of right femur, initial encounter for closed fracture (principal); I69.354 Hemiplegia and hemiparesis following cerebral infarction affecting left non-dominant side; I13.0 Hypertensive heart and chronic kidney disease with heart failure and stage 1 through stage 4 chronic kidney disease, or unspecified chronic kidney disease; I50.32 Chronic diastolic (congestive) heart failure; I45.3 Trifascicular block; N17.9 Acute kidney failure, unspecified; I48.0 Paroxysmal atrial fibrillation; W18.09XA Striking against other object with subsequent fall, initial encounter; E11.65 Type 2 diabetes mellitus with hyperglycemia; E11.40 Type 2 diabetes mellitus with diabetic neuropathy, unspecified; E11.22 Type 2 diabetes mellitus with diabetic chronic kidney disease; Y92.89 Other specified places as the place of occurrence of the external cause; E78.5 Hyperlipidemia, unspecified; I25.10 Atherosclerotic heart disease of native coronary artery without angina pectoris; N18.3 Chronic kidney disease, stage 3 (moderate); N40.0 Benign prostatic hyperplasia without lower urinary tract symptoms; D64.9 Anemia, unspecified; R31.9 Hematuria, unspecified; K21.9 Gastro-esophageal reflux disease without esophagitis; F32.9 Major depressive disorder, single episode, unspecified; G89.29 Other chronic pain; R26.81 Unsteadiness on feet; R29.6 Repeated falls; Z95.5 Presence of coronary angioplasty implant and graft; Z87.891 Personal history of nicotine dependence; Z79.01 Long term (current) use of anticoagulants; Z79.4 Long term (current) use of insulin; Z79.899 Other long term (current) drug therapy; Z88.0 Allergy status to penicillin

== ENCOUNTER 2018-10-06 15:34 | Inpatient (IN) | payer MEDICARE, MEDICAID ==
[~2018-10-06] VITALS: Ht 165.1 cm; Wt 120.2 kg
[~2018-10-06 15:34] MED LIST changes: +AMIO200T PO; +ATOR1TAB19 PO; +Acetaminophen Tab PO; +BUPR10TASR PO; +DEXT50IN6 IV; +ESCI20TA PO; +FAMO20TA PO; +FERR1TAB8 PO; +GLUC1INJ21 SC; +GLUC4CHW19 PO; +INSUDET SC; +INSUHUMDS SC; +LYRI75CA PO; +MAGN250T7 PO; +METO1TAB33 PO; +PERCOCET PO; +RANI15TA PO; +VICT18IN SC; +VITA100066 PO; +VITA500T PO; +VITAD1000T PO
[2018-10-06 16:00] VITALS: BP 110/56
[2018-10-06] MEDS ORDERED: BISACODYL 10 MG SUPP PR PRN (16:30)
[2018-10-06] MEDS ORDERED: MOM 30ML SUSPENSION UDC PO PRN (16:30)
[2018-10-06] MEDS ORDERED: ACETAMINOPHEN TAB 650MG DOSE (2X325MG) PO PRN (16:30)
[2018-10-06] MEDS ORDERED: GLUCAGON FOR INJ 1 MG VIAL (J1610) SC PRN (16:45)
[2018-10-06] MEDS ORDERED: GLUCOSE 4 GM CHEW TABLET PO PRN (16:45)
[2018-10-06] MEDS ORDERED: DEXTROSE 50% 50 ML SYRINGE IV PRN (16:45)
[2018-10-06] MEDS: HumaLOG INSULIN (NovoLOG) PER UNIT SC SCH ×2 (17:58→21:00)
[2018-10-06] MEDS: SENOKOT S TAB PO SCH (21:00)
[2018-10-06 22:00] VITALS: BP 123/57
[2018-10-06] MEDS: PREGABALIN 75 MG CAP(LYRICA) PO SCH (22:37)
[2018-10-06] MEDS: ATORVASTATIN 10 MG TAB PO SCH (22:38)
[2018-10-06] MEDS: APIXABAN 2.5 MG TAB (ELIQUIS) PO SCH (22:38)
[2018-10-07 06:00] VITALS: BP 143/65
[2018-10-07 06:46] LABS: BASO % 0.3 % (0.0-1.0); EOS # 0.2 10^3/uL (0.0-0.50); EOS % 2.6 % (0.0-3.0); HEMOGLOBIN 10.2 g/dl (13.5-17.5); LYMPH # 1.5 10^3/uL (1.5-4.5); MEAN CORPUSCULAR HEMOGLOBIN 31.2 pg (27.0-33.0); MEAN CORPUSCULAR HGB CONC 32.9 g/dl (32.0-36.5); MEAN CORPUSCULAR VOLUME 94.8 fl (80.0-96.0); MONO # 0.6 10^3/uL (0.0-0.8); MONO % 6.4 % (0.0-5.0); NEUTROPHILS # 6.4 10^3/uL (1.8-7.7); NEUTROPHILS % 73.2 % (36.0-66.0); PLATELET COUNT, AUTOMATED 205 10^3/uL (150-450); RED BLOOD COUNT 3.27 10^6/uL (4.30-6.10); WHITE BLOOD COUNT 8.7 10^3/uL (4.0-10.0)
[2018-10-07 07:14] LABS: CREATININE FOR GFR 1.75 MG/DL (0.70-1.30); GLOMERULAR FILTRATION RATE 41.3 (>49); POTASSIUM SERUM 4.6 MEQ/L (3.5-5.1)
[2018-10-07 07:15] LABS: ALBUMIN 1.9 GM/DL (3.2-5.2); BILIRUBIN,TOTAL 0.5 MG/DL (0.2-1.0); CALCIUM LEVEL 8.3 MG/DL (8.8-10.2); TOTAL PROTEIN 5.6 GM/DL (6.4-8.2)
[2018-10-07] MEDS: VITAMIN D 1,000 INTERNATIONAL UNITS TABLET PO SCH (08:44)
[2018-10-07] MEDS: FERROUS GLUCONATE 324 MG TAB PO SCH (08:44)
[2018-10-07] MEDS: PREGABALIN 75 MG CAP(LYRICA) PO SCH ×2 (08:44→20:33)
[2018-10-07] MEDS: TAMSULOSIN 0.4 MG CAP PO SCH (08:45)
[2018-10-07] MEDS: FAMOTIDINE 20 MG TAB PO SCH (08:45)
[2018-10-07] MEDS: APIXABAN 2.5 MG TAB (ELIQUIS) PO SCH ×2 (08:45→20:32)
[2018-10-07] MEDS: HumaLOG INSULIN (NovoLOG) PER UNIT SC SCH ×4 (08:45→20:33)
[2018-10-07] MEDS: LEVEMIR (INSULIN DETEMIR) 1 UNITS/0.01ML SC SCH (08:45)
[2018-10-07] MEDS: buPROPion (WELLBUTRIN SR) 100 MG SR TAB PO SCH (08:45)
[2018-10-07] MEDS: ASCORBIC ACID 500 MG TAB PO SCH (08:45)
[2018-10-07] MEDS: ESCITALOPRAM OXALATE 10 MG TAB (LEXAPRO) PO SCH (08:45)
[2018-10-07] MEDS: AMIODARONE 200 MG TAB (PACERONE) PO SCH (08:45)
[2018-10-07] MEDS: LACTULOSE 20 GM/30 ML SYRUP UD PO SCH (08:46)
[2018-10-07] MEDS: SENOKOT S TAB PO SCH ×2 (08:46→20:33)
[2018-10-07] MEDS: METOPROLOL SUCC (TopROL XL) 100MG *XL* TAB PO SCH (08:46)
[2018-10-07] MEDS: NORCO, ANEXSIA 5/325MG TABLET (HYDROcodone/ACETAMINOPHEN) PO PRN ×3 (10:09→23:56)
[2018-10-07 14:00] VITALS: BP 119/58
--- NOTE | 2018-10-07 14:04 | IPNPDOC ---
Date Seen The patient was seen on 10/07/18. Progress Note HPI: Mr. Mills is a 67-year-old who reported being in his usual state of health until the evening of admission when he was visiting his daughter at her place of employment when he slipped and fell on his right hip to the ground. He subsequently felt pain and was unable to raise off the ground. Activated EMS and presented to the emergency room. Imaging revealing right intertrochanteric femoral fracture. Orthopedics was consulted. S/P right hip trochanteric fixation nailing (TFN) for intertrochanteric hip fracture. Pt was transferred to ARU, Dr Albarran, 10/06/18. No acute medical complaints today. The pt states his pain is controlled. Denies any fevers, chills, weakness, fatigue, Headache, Chest Pain, Shortness of breath, cough, palpitations, abdominal pain, N/V/D or changes in bowel or bladder habits. PMHx: DM HTN HLD CAD GERD CHF TTE 09/28/18 EF 65%, DD. PSHX: Cholecystectomy. CAD with stent placement 2000. PE: GEN: 67yoM, appears stated age. No acute distress. Alert and oriented x 3. Pleasant, interactive. HEENT: Normocephalic, atraumatic. Pupils are equal, round, and reactive to light. Extraocular movements are intact. No nystagmus appreciated. Sclera are nonicteric. Conjunctiva without injection. Nose midline. No facial asymmetry. Moist mucous membranes. Pharynx pink and moist. Neck supple, trachea midline. No lymphadenopathy or thyromegaly appreciated. CHEST: Regular rate and rhythm, +S1, +S2 LUNGS: Clear to auscultation bilaterally. No wheezes, rales, or rhonchi. ABD: Round, soft, non-tender, non-distended. +Bowel sounds throughout. No rebound or guarding. No costovertebral angle tenderness. EXT: No lower extremity edema appreciated. SKIN: [place], dry, warm. No rashes. NEURO: Alert and oriented x 3. Cranial nerves III-XII are intact. No focal deficits appreciated. A&P: Mr. Mills is a 67-year-old who reported being in his usual state of health until the evening of admission when he was visiting his daughter at her place of employment when he slipped and fell on his right hip to the ground. He subsequently felt pain and was unable to raise off the ground. Activated EMS and presented to the emergency room. Imaging revealing right intertrochanteric femoral fracture. Orthopedics was consulted. S/P right hip trochanteric fixation nailing (TFN) for intertrochanteric hip fracture. Pt was transferred to ARU, Dr Albarran, 10/06/18. 1. Mechanical fall resulting in right intertrochanteric femur fracture/IM nail right hip on 09/30/2018. Management as per Orthopedics. PT/OT/ST as per ARU Pain control as per ARU Bowel care as per ARU Disposition as per ARU DVT px. Continue Eliquis 2.5mg by mouth twice daily for anticoagulation. 2. Acute on chronic kidney disease, stage III: Creatinine 1.65. Monitor with daily BMP. 3. Hematuria: Status post Hdez catheter. Follow-up urinalysis has normalized. C ould consider outpatient follow-up with urology. 4. Iron deficiency Anemia Started iron supplement daily with vitamin C. Peripheral smear Normocytic anemia; patient is status-post hip surgery. No blasts identified. Minimal thrombocytopenia with normal platelet morphology. Folate 8.7. Vitamin B12 level WNL. Absolute reticulocyte count 1.3 with a reticulocyte index 0.84. No signs of bleeding. Hgb stable, 10.2. Monitor 5. Diabetes mellitus with hyperglycemia and neuropathy: CC diet Continue with Levemir 45 units subcutaneously daily. SSI. Lyrica. 6. Recent diagnosis of atrial fibrillation: Continue to Eliquis, metoprolol, and amiodarone. 7. Depression: Continue Lexapro. 8. Gastroesophageal reflux disease: Continue famotidine and omeprazole. 9. Benign prostatic hyperplasia: Continue Flomax. 10. Coronary artery disease status-post cardiac stenting: Follows with Dr. Johnson. Status-post stenting in 2000. 11. History of TIA/CVA: Residual left-sided weakness. Monitor. VS, I&O, 24H, Fishbone Vital Signs/I&O Vital Signs Date Time Temp Pulse Resp B/P (MAP) Pulse Ox O2 Delivery O2 Flow Rate FiO2 10/07/18 11:00 18 10/07/18 08:46 57 10/07/18 06:00 97.9 143/65 (91) 94 Room Air I&O- Last 24 Hours up to 6 AM 10/07/18 06:00 Intake Total 360 ml Output Total 275 ml Balance 85 ml Laboratory Data 24H LABS Laboratory Tests 2 10/06/18 16:55: Bedside Glucose (Misc Panel) 224H 10/06/18 20:46: Bedside Glucose (Misc Panel) 167H 10/07/18 06:24: Immature Granulocyte % (Auto) 0.5, White Blood Count 8.7, Red Blood Count 3.27L, Hemoglobin 10.2L, Hematocrit 31.0L, Mean Corpuscular Volume 94.8, Mean Corpuscular Hemoglobin 31.2, Mean Corpuscular Hemoglobin Concent 32.9, Red Cell Distribution Width 13.5, Platelet Count 205, Neutrophils (%) (Auto) 73.2H, Lymphocytes (%) (Auto) 17.0L, Monocytes (%) (Auto) 6.4H, Eosinophils (%) (Auto) 2.6, Basophils (%) (Auto) 0.3, Neutrophils # (Auto) 6.4, Lymphocytes # (Auto) 1.5, Monocytes # (Auto) 0.6, Eosinophils # (Auto) 0.2, Basophils # (Auto) 0.0, Nucleated Red Blood Cells % (auto) 0.0, Anion Gap 9, Glomerular Filtration Rate 41.3L, Blood Urea Nitrogen 45H, Creatinine 1.75H, Sodium Level 139, Potassium Level 4.6, Chloride Level 105, Carbon Dioxide Level 25, Calcium Level 8.3L, Aspartate Amino Transf (AST/SGOT) 21, Alanine Aminotransferase (ALT/SGPT) 26, Alkaline Phosphatase 77, Total Bilirubin 0.5, Total Protein 5.6L, Albumin 1.9L, Albumin/Globulin Ratio 0.51L 10/07/18 12:00: Bedside Glucose (Misc Panel) 256H CBC/BMP Laboratory Tests 10/07/18 06:24 Red Blood Count 3.27 L, Mean Corpuscular Volume 94.8, Mean Corpuscular Hemoglobin 31.2, Mean Corpuscular Hemoglobin Concent 32.9, Red Cell Distribution Width 13.5, Neutrophils (%) (Auto) 73.2 H, Lymphocytes (%) (Auto) 17.0 L, Monocytes (%) (Auto) 6.4 H, Eosinophils (%) (Auto) 2.6, Basophils (%) (Auto) 0.3, Neutrophils # (Auto) 6.4, Lymphocytes # (Auto) 1.5, Monocytes # (Auto) 0.6, Eosinophils # (Auto) 0.2, Basophils # (Auto) 0.0, Calcium Level 8.3 L, Aspartate Amino Transf (AST/SGOT) 21, Alanine Aminotransferase (ALT/SGPT) 26, Alkaline Phosphatase 77, Total Bilirubin 0.5, Total Protein 5.6 L, Albumin 1.9 L Sharron Cartwright Oct 07, 2018 14:04
--- NOTE | 2018-10-07 16:08 | HPEPDOC ---
Open Source Developer Note DATE OF ADMISSION: Oct 06, 2018 at 16:00 SOURCE OF ADMISSION INFORMATION: [facility] records and patient CHIEF COMPLAINT: right hip fracture HISTORY OF PRESENT ILLNESS: 67M pmh recently diagnosed Afib on low dose Eliquis, HTN, CVA with residual left sided weakness, DM, chronic diastolic CHF, CAD s/p PCI in 2000 who fell at home onto his right side without any precipitating dizziness, palpitations, or LOC and was brought to [facility] ED on 09/27/18 complaining of right leg pain and inability to walk. Trauma imaging series revealed a Intertrochanteric fracture of the right hip with overlying swelling. And head CT showed No evidence of fracture.. No evidence of bleed. His Eliquis was held, he was evaluated by cardiology who questioned the low dose of Eliquis suggesting outpatient reassessment, performed a ECHO on 09/28/18 showing Borderline concentric left ventricle hypertrophy with preserved systolic function. Mildly dilated left atrium with impairment of LV diastolic function and at least mildly elevated mean left atrial pressure. EKG also revealed sinus bradycardia first-degree arteriovenous (AV) block, right bundle branch block and left anterior fascicular hemiblock. He was cleared for ORIF performed by Dr. Matthews on 09/30/18 without complications. He was evaluated by therapy and found to have considerable needs and deemed medically appropriate for discharge to ARU on 10/06/18. REVIEW OF SYSTEMS: The following is a completed review of systems and has been reviewed. Review of systems otherwise unremarkable. PAIN: Patient self reports right hip pain EYES: Negative for recent vision changes EARS, NOSE, & THROAT:no dysphagia or rhinorrhea CARDIOVASCULAR: +Afib, denies chest pain PULMONARY: Negative. Denies shortness of breath. GASTROINTESTINAL: Negative for constipation or diarrhea GENITOURINARY:+retention MUSCULOSKELETAL: right hip fracture NEUROLOGICAL: no tremor, no focal weakness, +diabetic neuropathy HEMATOLOGICAL:no ecchymosis SKIN: right hip incision PSYCHIATRIC: Unremarkable All other review of systems found to be negative. PAST MEDICAL HISTORY: Afib on low dose Eliquis, HTN, CVA with residual left sided weakness, DM, chronic diastolic CHF, CAD s/p PCI in 2000 PAST SURGICAL HISTORY: Cholecystectomy, CAD with stent placement 2000. ALLERGIES: Please see below. MEDICATIONS: Please see below. FAMILY HISTORY: Mom with brain cancer and son with COPD SOCIAL HISTORY: ex-smoker, denies ETOH or illicit drug use, recently lives with granddaughter DIET: Regular PHYSICAL EXAMINATION: VITAL SIGNS: Please see below. GENERAL: Pleasant and cooperative. No acute distress. HEENT: PERRL. Extraocular movements intact. Clear conjunctiva CARDIOVASCULAR: Irregular rate and rhythm. No murmurs, rubs, or gallops LUNGS: Clear to auscultation bilaterally. No wheezes. No rhonchi ABDOMEN: Soft, nontender, mildly distended. Positive bowel sounds. Normal active bowel sounds NEUROLOGICAL: Alert and oriented times three. Cranial nerves II through XII grossly intact. Sensation diminished in stocking pattern lower extremities EXTREMITIES: 5\5 strength bilateral upper extremities. 5-\5 strength ankle DF and EHL did not test right hip flexors or knee extensors due to pain 5-/5 strength in left lower extremity. SKIN: right hp inicions c/d/i, no surrounding induration or erythema +bilateral edema IMAGING: Imaging documentation personally reviewed by record FUNCTIONAL STATUS: Premorbid: Modified Independent with RW with all activities of daily life as well as mobility On Admission: Mod-Max assist for all functional transfers, bed mobility, and able to walk a few feet mod-max assist with RW GOALS: Mod-I with ambulation using RW, bed mobility, functional transfers, medical optimization, assess for DME needs, family training, pain control. ASSESSMENT:67-year-old M with past medical history of CAD sp stent, Afib, DM who presents status post fall with right hip fracture. PLAN: 1. Rehab: OT, OT assess for DME 2. Orhto: s.p right hip ORIF, ortho consulted, WBAT 2. Neuro: pmh CVA/TIA, continue secondary stroke prevention measures- statin, ASA, and BP management 3. CArdio: pmh Afib on amiodarone and low dose Eliquis, chronic diastolic HF and HTN, continue home meds and monitor -will add short-term diuretics for LE edema and monitor Instrument Maker, medicine consulted 4. Endo: pmh DM, continue insulin therapy, will order nutrition consult per patient request to assist with weight loss 5. DVT ppx: on eliquis, TEDs 6. Pain: TYlenol and Creighton prn, ICE 7. Psych: depression, continue Welbutrin and Lexapro 8. resp: Incentive spirometry, monitor for cough 9. Dispo: TBD POST ADMISSION PHYSICIAN EVALUATION: Medical and functional status: Description of medical status, medical assessment: As above. Rehabilitation diagnosis and current and prior cold morbid medical conditions as above. Risk of complications and plans to mitigate them as above. Description of functional status current status is as above. Prior status as above. Status compared to preadmission: There are no clinically significant differences between the patient's current status and the information described on the preadmission screening document. Treatment plan anticipated: Treatment plan is as described above. Required disciplines including physical therapy, occupational therapy, others as noted above. Intensity of services: 3 hours a day, 6 days a week. Special considerations: There are no specific special or safety considerations that would likely preclude immediate implementation of an intensive rehabilitation program or subsequently influence the plan of care ATTESTATION: Considering all the information above, it is my best judgment that this patient requires intensive rehabilitation therapy as described above and an inpatient hospital environment due to the complexity of nursing, medical, and rehabilitation needs required by the patient. Furthermore, this patient can reasonably be expected to participate in an benefit from an inpatient donavon abilitation stay with an interdisciplinary team approach to the delivery of rehabilitation care under the direction and supervision of rehabilitation physician PROGNOSIS: Excellent ESTIMATED LENGTH OF STAY:18-21 days. PROJECTED DISCHARGE DESTINATION: Home with family support and any durable medi sadi equipment required to increase functional safety and mobility TIME SPENT COUNSELING AND COORDINATING INITIAL CARE: Greater than 70 minutes. Vital Signs Vital Sign - Last 24 Hours 10/06/18 10/06/18 10/07/18 10/07/18 16:00 22:00 06:00 08:46 Temp 98.1 97.1 97.9 Pulse 68 55 57 57 Resp 18 18 18 B/P (MAP) 110/56 (74) 123/57 (79) 143/65 (91) Pulse Ox 98 91 94 O2 Delivery Room Air Room Air Room Air 10/07/18 10/07/18 10:09 11:00 Resp 16 18 Laboratory Data CBC/BMP Laboratory Tests 10/07/18 06:24 Red Blood Count 3.27 L, Mean Corpuscular Volume 94.8, Mean Corpuscular Hemoglobin 31.2, Mean Corpuscular Hemoglobin Concent 32.9, Red Cell Distribution Width 13.5, Neutrophils (%) (Auto) 73.2 H, Lymphocytes (%) (Auto) 17.0 L, Monocytes (%) (Auto) 6.4 H, Eosinophils (%) (Auto) 2.6, Basophils (%) (Auto) 0.3, Neutrophils # (Auto) 6.4, Lymphocytes # (Auto) 1.5, Monocytes # (Auto) 0.6, Eosinophils # (Auto) 0.2, Basophils # (Auto) 0.0, Calcium Level 8.3 L, Aspartate Amino Transf (AST/SGOT) 21, Alanine Aminotransferase (ALT/SGPT) 26, Alkaline Phosphatase 77, Total Bilirubin 0.5, Total Protein 5.6 L, Albumin 1.9 L Labs 24H Laboratory Tests 2 10/06/18 16:55: Bedside Glucose (Misc Panel) 224H 10/06/18 20:46: Bedside Glucose (Misc Panel) 167H 10/07/18 06:24: Immature Granulocyte % (Auto) 0.5, White Blood Count 8.7, Red Blood Count 3.27L, Hemoglobin 10.2L, Hematocrit 31.0L, Mean Corpuscular Volume 94.8, Mean Corpuscular Hemoglobin 31.2, Mean Corpuscular Hemoglobin Concent 32.9, Red Cell Distribution Width 13.5, Platelet Count 205, Neutrophils (%) (Auto) 73.2H, Lymphocytes (%) (Auto) 17.0L, Monocytes (%) (Auto) 6.4H, Eosinophils (%) (Auto) 2.6, Basophils (%) (Auto) 0.3, Neutrophils # (Auto) 6.4, Lymphocytes # (Auto) 1.5, Monocytes # (Auto) 0.6, Eosinophils # (Auto) 0.2, Basophils # (Auto) 0.0, Nucleated Red Blood Cells % (auto) 0.0, Anion Gap 9, Glomerular Filtration Rate 41.3L, Blood Urea Nitrogen 45H, Creatinine 1.75H, Sodium Level 139, Potassium Level 4.6, Chloride Level 105, Carbon Dioxide Level 25, Calcium Level 8.3L, Aspartate Amino Transf (AST/SGOT) 21, Alanine Aminotransferase (ALT/SGPT) 26, Alkaline Phosphatase 77, Total Bilirubin 0.5, Total Protein 5.6L, Albumin 1.9L, Albumin/Globulin Ratio 0.51L 10/07/18 12:00: Bedside Glucose (Misc Panel) 256H FSBS Laboratory Tests Test 10/06/18 16:55 10/06/18 20:46 10/07/18 12:00 Range/Units Bedside Glucose (Misc Panel) 224 167 256 80-115 MG/DL Home Medications Scheduled Amiodarone HCl (Amiodarone HCl) 200 Mg Tab, 200 MG PO DAILY Apixaban Base (Eliquis) 2.5 Mg Tab, 2.5 MG PO BID Ascorbic Acid (Vitamin C) 500 Mg Tab, 500 MG PO DAILY Atorvastatin Calcium (Atorvastatin Calcium) 10 Mg Tab, 10 MG PO QHS Bupropion Hcl (Wellbutrin Sr) 100 Mg Tabsr, 100 MG PO DAILY Escitalopram Oxalate (Escitalopram Oxalate) 10 Mg Tab, 20 MG PO DAILY Famotidine (Pepcid) 20 Mg Tab, 20 MG PO DAILY Ferrous Sulfate (Ferrous Sulfate) 325 Mg Tab, 325 MG PO DAILY Insulin Detemir (Levemir) 1 Units/0.01 Ml Susp, 45 UNITS SC DAILY Insulin Human Lispro (Humalog) 1 Units/0.01 Ml Inj, 0 UNITS SC AC Insulin Human Lispro (Humalog) 1 Units/0.01 Ml Inj, 0 UNITS SC QHS Metoprolol Succinate (Metoprolol Succinate ER) 100 Mg Tab, 100 MG PO DAILY Omeprazole (Omeprazole) 20 Mg Cap, 20 MG PO DAILY Pregabalin (Lyrica) 75 Mg Cap, 150 MG PO BID Tamsulosin Hydrochloride (Flomax) 0.4 Mg Cap, 0.4 MG PO DAILY Vitamin D (Vitamin D3) 1,000 Units Tab, 1,000 UNITS PO DAILY Scheduled PRN Dextrose (Dextrose 50%) 50 % Inj, 25 ML IV ASDIRECTED PRN for SEE LABEL COMMENTS Glucagon (Glucagen Diagnostic) 1 Mg Inj, 1 MG SC ASDIRECTED PRN for SEE LABEL COMMENTS Glucose (Glucose) 4 Gm Chw, 0 GM PO ASDIRECTED PRN for SEE LABEL COMMENTS Oxycodone/Acetaminophen (Percocet 5MG/325MG Tablet) 1 Tab Tab, 1 TAB PO Q4HP PRN for MODERATE PAIN (PS 5-7) Tramadol HCl (Tramadol HCl) 50 Mg Tab, 50 MG PO BID PRN for PAIN [Acetaminophen Tab] 325 MG/TAB TAB, 650 MG PO Q4HP PRN for MILD PAIN OR FEVER Allergies Coded Allergies: Latex (Verified Allergy, Unknown, Hives, 09/28/18) had reaction to rubber gloves-hives Penicillins (Verified Allergy, Unknown, 01/07/14) KARLA ULLOA MD Oct 07, 2018 15:26
[2018-10-07 20:00] VITALS: BP 129/67
[2018-10-07] MEDS: ATORVASTATIN 10 MG TAB PO SCH (20:32)
--- NOTE | 2018-10-07 22:01 | IPNPDOC ---
PM&R Progress Note DATE OF SERVICE: Oct 07, 2018 Digital Marketer Progress Note Subjective: Patient reports feeling tired and had a difficult day in therapy. He would like a nutrition consult to work on weight loss. REVIEW OF SYSTEMS: The following is a completed review of systems and has been reviewed. Review of systems otherwise unremarkable. PAIN: Patient self reports right hip pain EYES: Negative for recent vision changes EARS, NOSE, & THROAT:no dysphagia or rhinorrhea CARDIOVASCULAR: +Afib, denies chest pain PULMONARY: Negative. Denies shortness of breath. GASTROINTESTINAL: Negative for constipation or diarrhea GENITOURINARY:+retention MUSCULOSKELETAL: right hip fracture NEUROLOGICAL: no tremor, no focal weakness, +diabetic neuropathy HEMATOLOGICAL:no ecchymosis SKIN: right hip incision PSYCHIATRIC: Unremarkable All other review of systems found to be negative. PHYSICAL EXAMINATION: VITAL SIGNS: Please see below. GENERAL: Pleasant and cooperative. No acute distress. HEENT: PERRL. Extraocular movements intact. Clear conjunctiva CARDIOVASCULAR: Irregular rate and rhythm. No murmurs, rubs, or gallops LUNGS: Clear to auscultation bilaterally. No wheezes. No rhonchi ABDOMEN: Soft, nontender, mildly distended. Positive bowel sounds. Normal active bowel sounds NEUROLOGICAL: Alert and oriented times three. Cranial nerves II through XII grossly intact. Sensation diminished in stocking pattern lower extremities EXTREMITIES: 5\5 strength bilateral upper extremities. 5-\5 strength ankle DF and EHL did not test right hip flexors or knee extensors due to pain 5-/5 strength in left lower extremity. SKIN: right hp inicions c/d/i, no surrounding induration or erythema +bilateral edema ASSESSMENT:67-year-old M with past medical history of CAD sp stent, Afib, DM who presents status post fall with right hip fracture. PLAN: 1. Rehab: OT, OT assess for DME 2. Orhto: s.p right hip ORIF, ortho consulted, WBAT 2. Neuro: pmh CVA/TIA, continue secondary stroke prevention measures- statin, ASA, and BP management 3. CArdio: pmh Afib on amiodarone and low dose Eliquis, chronic diastolic HF and HTN, continue home meds and monitor -will add short-term diuretics for LE edema and monitor Mutual Fund Manager, medicine consulted 4. Endo: pmh DM, continue insulin therapy, will order nutrition consult per patient request to assist with weight loss 5. DVT ppx: on eliquis, TEDs 6. Pain: Tylenol and [place] prn, ICE 7. Psych: depression, continue Welbutrin and Lexapro 8. resp: Incentive spirometry, monitor for cough 9. Dispo: TBD Allergies Coded Allergies: Latex (Verified Allergy, Unknown, Hives, 09/28/18) had reaction to rubber gloves-hives Penicillins (Verified Allergy, Unknown, 01/07/14) Vital Signs Vital Signs Date Time Temp Pulse Resp B/P (MAP) Pulse Ox O2 Delivery O2 Flow Rate FiO2 10/07/18 20:00 97.4 59 18 129/67 (87) 93 Room Air Laboratory Data CBC/BMP Laboratory Tests 10/07/18 06:24 Red Blood Count 3.27 L, Mean Corpuscular Volume 94.8, Mean Corpuscular Hemoglobin 31.2, Mean Corpuscular Hemoglobin Concent 32.9, Red Cell Distribution Width 13.5, Neutrophils (%) (Auto) 73.2 H, Lymphocytes (%) (Auto) 17.0 L, Monocytes (%) (Auto) 6.4 H, Eosinophils (%) (Auto) 2.6, Basophils (%) (Auto) 0.3, Neutrophils # (Auto) 6.4, Lymphocytes # (Auto) 1.5, Monocytes # (Auto) 0.6, Eosinophils # (Auto) 0.2, Basophils # (Auto) 0.0, Calcium Level 8.3 L, Aspartate Amino Transf (AST/SGOT) 21, Alanine Aminotransferase (ALT/SGPT) 26, Alkaline Phosphatase 77, Total Bilirubin 0.5, Total Protein 5.6 L, Albumin 1.9 L Labs 24H Laboratory Tests 2 10/07/18 06:24: Immature Granulocyte % (Auto) 0.5, White Blood Count 8.7, Red Blood Count 3.27L, Hemoglobin 10.2L, Hematocrit 31.0L, Mean Corpuscular Volume 94.8, Mean Corpuscular Hemoglobin 31.2, Mean Corpuscular Hemoglobin Concent 32.9, Red Cell Distribution Width 13.5, Platelet Count 205, Neutrophils (%) (Auto) 73.2H, L ymphocytes (%) (Auto) 17.0L, Monocytes (%) (Auto) 6.4H, Eosinophils (%) (Auto) 2.6, Basophils (%) (Auto) 0.3, Neutrophils # (Auto) 6.4, Lymphocytes # (Auto) 1.5, Monocytes # (Auto) 0.6, Eosinophils # (Auto) 0.2, Basophils # (Auto) 0.0, Nucleated Red Blood Cells % (auto) 0.0, Anion Gap 9, Glomerular Filtration Rate 41.3L, Blood Urea Nitrogen 45H, Creatinine 1.75H, Sodium Level 139, Potassium Level 4.6, Chloride Level 105, Carbon Dioxide Level 25, Calcium Level 8.3L, Aspartate Amino Transf (AST/SGOT) 21, Alanine Aminotransferase (ALT/SGPT) 26, Alkaline Phosphatase 77, Total Bilirubin 0.5, Total Protein 5.6L, Albumin 1.9L, Albumin/Globulin Ratio 0.51L 10/07/18 12:00: Bedside Glucose (Misc Panel) 256H 10/07/18 16:40: Bedside Glucose (Misc Panel) 152H 10/07/18 19:44: Bedside Glucose (Misc Panel) 163H Current Medications Current Medications Current Medications Acetaminophen (Tylenol Tab) 650 mg Q4HP PRN PO fever/MILD PAIN (PS 1-4); Start 10/06/18 at 16:30 Acetaminophen/ Hydrocodone Bitart ([place], Anexsia 5/325) 1 tab Q4HP PRN PO MODERATE PAIN (PS 5-7); Start 10/06/18 at 16:30 Acetaminophen/ Hydrocodone Bitart ([place], Anexsia 5/325) 2 tab Q4HP PRN PO SEVERE PAIN (PS 8-10) Last administered on 10/07/18at 15:34; Start 10/06/18 at 16:30 Amiodarone HCl (Pacerone, Cordarone) 200 mg DAILY PO Last administered on 10/07/18at 08:45; Start 10/07/18 at 09:00 Apixaban (Eliquis) 2.5 mg BID PO Last administered on 10/07/18at 20:32; Start 10/06/18 at 21:00 Ascorbic Acid (Vitamin C) 500 mg DAILY PO Last administered on 10/07/18at 08:45; Start 10/07/18 at 09:00 Atorvastatin Calcium (Lipitor) 10 mg QHS PO Last administered on 10/07/18at 20:32; Start 10/06/18 at 21:00 Bisacodyl (Dulcolax Suppository) 10 mg DAILYPRN PRN [place] CONSTIPATION; Start 10/06/18 at 16:30 Bupropion HCl (Wellbutrin Sr) 100 mg DAILY PO Last administered on 10/07/18at 08:45; Start 10/07/18 at 09:00 Dextrose (Dextrose 50%) 25 ml ASDIRECTED PRN IV SEE LABEL COMMENTS; Start 10/06/18 at 16:45 Escitalopram Oxalate (Lexapro) 20 mg DAILY PO Last administered on 10/07/18at 08:45; Start 10/07/18 at 09:00 Famotidine (Pepcid) 20 mg DAILY PO Last administered on 10/07/18at 08:45; Start 10/07/18 at 09:00 Ferrous Gluconate (Fergon) 324 mg DAILY PO Last administered on 10/07/18at 08:44; Start 10/07/18 at 09:00 Glucagon (Glucagon) 1 mg ASDIRECTED PRN SC SEE LABEL COMMENTS; Start 10/06/18 at 16:45 Glucose (Glucose) 16 GM ASDIRECTED PRN PO SEE LABEL COMMENTS; Start 10/06/18 at 16:45 Home Med (Med Rec Complete!) ASDIRECTED XX ; Start 10/06/18 at 17:30; Stop 10/06/18 at 17:30; Status DC Insulin Detemir (Levemir Insulin) 45 units DAILY SC Last administered on 10/07/18at 08:45; Start 10/07/18 at 09:00 Insulin Human Lispro (HumaLOG INSULIN) SEE PROTOCOL TABLE AC SC Last administered on 10/07/18at 17:32; Start 10/06/18 at 17:30 Insulin Human Lispro (HumaLOG INSULIN) See Protocol Table QHS SC ; Start 9 at 21:00 Lactulose (Cephulac) 30 ml DAILY PO ; Start 10/07/18 at 09:00 Magnesium Hydroxide (Milk Of Magnesia) 30 ml DAILYPRN PRN PO CONSTIPATION; Start 10/06/18 at 16:30 Metoprolol Succinate (TopROL XL) 100 mg DAILY PO ; Start 10/07/18 at 09:00 Pregabalin (Lyrica) 150 mg BID PO Last administered on 10/07/18at 20:33; Start 10/06/18 at 21:00 Senna/Docusate Sodium (Senokot S) 1 tab BID PO ; Start 10/06/18 at 21:00 Tamsulosin HCl (Flomax) 0.4 mg DAILY PO Last administered on 10/07/18at 08:45; Start 10/07/18 at 09:00 Vitamin D (Vitamin D) 1,000 units DAILY PO Last administered on 10/07/18at 08:4 4; Start 10/07/18 at 09:00 KARLA ULLOA MD Oct 07, 2018 22:01
[2018-10-08 06:00] VITALS: BP 127/62
[2018-10-08 06:47] LABS: HEMATOCRIT 29.5 % (42.0-52.0); HEMOGLOBIN 9.6 g/dl (13.5-17.5); MEAN CORPUSCULAR HEMOGLOBIN 30.7 pg (27.0-33.0); MEAN CORPUSCULAR HGB CONC 32.5 g/dl (32.0-36.5); MEAN CORPUSCULAR VOLUME 94.2 fl (80.0-96.0); PLATELET COUNT, AUTOMATED 198 10^3/uL (150-450); RED BLOOD COUNT 3.13 10^6/uL (4.30-6.10); WHITE BLOOD COUNT 7.6 10^3/uL (4.0-10.0)
[2018-10-08 06:54] LABS: APPEARANCE, URINE CLEAR (CLEAR); BACTERIA, URINE AUTO NEGATIVE (NEGATIVE); BILIRUBIN, URINE AUTO NEGATIVE (NEGATIVE); BLOOD, URINE BLOOD NEGATIVE (NEGATIVE); COLOR, URINE YELLOW (YELLOW); GLUCOSE, URINE (UA) AUTO NEGATIVE (NEGATIVE); KETONE, URINE AUTO NEGATIVE (NEGATIVE); LEUKOCYTE ESTERASE, URINE AUTO TRACE (NEGATIVE); NITRITE, URINE AUTO NEGATIVE (NEGATIVE); PROTEIN, URINE AUTO NEGATIVE (NEGATIVE); RBC, URINE AUTO 5 /HPF (0-3); SQUAMOUS EPITHELIAL CELL UR AU 0 /HPF (0-6); UROBILINOGEN, URINE AUTO 0.2 mg/dL (0.0-2.0); WBC, URINE AUTO 11 /HPF (0-3)
[2018-10-08 07:11] LABS: CALCIUM LEVEL 7.8 MG/DL (8.8-10.2); CREATININE FOR GFR 1.83 MG/DL (0.70-1.30); GLOMERULAR FILTRATION RATE 39.3 (>49); POTASSIUM SERUM 4.5 MEQ/L (3.5-5.1)
[2018-10-08] MEDS: FERROUS GLUCONATE 324 MG TAB PO SCH (08:24)
[2018-10-08] MEDS: LEVEMIR (INSULIN DETEMIR) 1 UNITS/0.01ML SC SCH (08:24)
[2018-10-08] MEDS: HumaLOG INSULIN (NovoLOG) PER UNIT SC SCH ×4 (08:24→20:57)
[2018-10-08] MEDS: buPROPion (WELLBUTRIN SR) 100 MG SR TAB PO SCH (08:25)
[2018-10-08] MEDS: METOPROLOL SUCC (TopROL XL) 100MG *XL* TAB PO SCH ×2 (08:25→08:27)
[2018-10-08] MEDS: ESCITALOPRAM OXALATE 10 MG TAB (LEXAPRO) PO SCH (08:25)
[2018-10-08] MEDS: ASCORBIC ACID 500 MG TAB PO SCH (08:25)
[2018-10-08] MEDS: VITAMIN D 1,000 INTERNATIONAL UNITS TABLET PO SCH (08:25)
[2018-10-08] MEDS: SENOKOT S TAB PO SCH ×2 (08:26→20:57)
[2018-10-08] MEDS: TAMSULOSIN 0.4 MG CAP PO SCH (08:26)
[2018-10-08] MEDS: AMIODARONE 200 MG TAB (PACERONE) PO SCH (08:26)
[2018-10-08] MEDS: PREGABALIN 75 MG CAP(LYRICA) PO SCH ×2 (08:26→20:56)
[2018-10-08] MEDS: FAMOTIDINE 20 MG TAB PO SCH (08:26)
[2018-10-08] MEDS: LACTULOSE 20 GM/30 ML SYRUP UD PO SCH (08:26)
[2018-10-08] MEDS: APIXABAN 2.5 MG TAB (ELIQUIS) PO SCH ×2 (08:26→20:57)
[2018-10-08] MEDS ORDERED: NS 1,000 ML IV ONE (10:45)
[2018-10-08] MEDS: NORCO, ANEXSIA 5/325MG TABLET (HYDROcodone/ACETAMINOPHEN) PO PRN ×2 (13:29→21:02)
[2018-10-08 14:00] VITALS: BP 172/76
--- NOTE | 2018-10-08 14:35 | IPNPDOC ---
Date Seen The patient was seen on 10/08/18. Progress Note HPI: Mr. Mills is a 67-year-old who reported being in his usual state of health until the evening of admission when he was visiting his daughter at her place of employment when he slipped and fell on his right hip to the ground. He subsequently felt pain and was unable to raise off the ground. Activated EMS and presented to the emergency room. Imaging revealing right intertrochanteric femoral fracture. Orthopedics was consulted. S/P right hip trochanteric fixation nailing (TFN) for intertrochanteric hip fracture. Pt was transferred to ARU, Dr Albarran, 10/06/18. No acute medical complaints today. The pt states his pain is controlled. Pt is OOB to chair. Denies any fevers, chills, weakness, fatigue, Headache, Chest Pain, Shortness of breath, cough, palpitations, abdominal pain, N/V/D or changes in bowel or bladder habits. PMHx: DM HTN HLD CAD GERD CHF TTE 09/28/18 EF 65%, DD. PSHX: Cholecystectomy. CAD with stent placement 2000. PE: GEN: 67yoM, appears stated age. No acute distress. Alert and oriented x 3. Pleasant, interactive. HEENT: Normocephalic, atraumatic. Sclera are nonicteric. Conjunctiva without injection. Nose midline. No facial asymmetry. Moist mucous membranes. CHEST: Regular rate and rhythm, +S1, +S2 LUNGS: Clear to auscultation bilaterally. No wheezes, rales, or rhonchi. ABD: Round, soft, non-tender, non-distended. +Bowel sounds throughout. No rebound or guarding. EXT: No lower extremity edema appreciated. SKIN: [place], dry, warm. No rashes. NEURO: Alert and oriented x 3. Cranial nerves III-XII are intact. No focal deficits appreciated. A&P: Mr. Mills is a 67-year-old who reported being in his usual state of health until the evening of admission when he was visiting his daughter at her place of employment when he slipped and fell on his right hip to the ground. He subsequently felt pain and was unable to raise off the ground. Activated EMS and presented to the emergency room. Imaging revealing right intertrochanteric femoral fracture. Orthopedics was consulted. S/P right hip trochanteric fixation nailing (TFN) for intertrochanteric hip fracture. Pt was transferred to ARU, Dr Albarran, 10/06/18. 1. Mechanical fall resulting in right intertrochanteric femur fracture/IM nail right hip on 09/30/2018. Management as per Orthopedics. PT/OT/ST as per ARU Pain control as per ARU Bowel care as per ARU Disposition as per ARU DVT px. Continue Eliquis 2.5mg by mouth twice daily for anticoagulation. 2. Acute on chronic kidney disease, stage III: Baseline 1.6-1.8 Creatinine 1.83. IVF x 1 liter ordered today as per attending. Monitor am BMP. 3. Hematuria: Status post Hdez catheter. Follow-up urinalysis has normalized. Could consider outpatient follow-up with urology. 4. Iron deficiency Anemia Started iron supplement daily with vitamin C. Peripheral smear Normocytic anemia; patient is status-post hip surgery. No blasts identified. Minimal thrombocytopenia with normal platelet morphology. Folate 8.7. Vitamin B12 level WNL. No signs of bleeding. Hgb stable, 9.6. Monitor 5. Diabetes mellitus with hyperglycemia and neuropathy: CC diet Continue with Levemir 45 units subcutaneously daily. SSI. Lyrica. 6. Recent diagnosis of atrial fibrillation: Continue to Eliquis, metoprolol, and amiodarone. 7. Depression: Continue Lexapro. 8. Gastroesophageal reflux disease: Continue famotidine and omeprazole. 9. Benign prostatic hyperplasia: Continue Flomax. 10. Coronary artery disease status-post cardiac stenting: Follows with Dr. Johnson. Status-post stenting in 2000. 11. History of TIA/CVA: Residual left-sided weakness. Monitor. VS, I&O, 24H, Fishbone Vital Signs/I&O Vital Signs Date Time Temp Pulse Resp B/P (MAP) Pulse Ox O2 Delivery O2 Flow Rate FiO2 10/08/18 13:29 18 10/08/18 08:27 58 127/62 10/08/18 06:00 97.5 97 Room Air I&O- Last 24 Hours up to 6 AM 10/08/18 06:00 Intake Total 2280 ml Output Total 1025 ml Balance 1255 ml Laboratory Data 24H LABS Laboratory Tests 2 10/07/18 16:40: Bedside Glucose (Misc Panel) 152H 10/07/18 19:44: Bedside Glucose (Misc Panel) 163H 10/08/18 06:25: Urine Appearance CLEAR, Urine Color YELLOW, Urine pH 5.0, Urine Specific [place] 1.010, Urine Protein NEGATIVE, Urine Glucose (UA) NEGATIVE, Urine Ketones NEGATIVE, Urine Urobilinogen 0.2, Urine Bilirubin NEGATIVE, Urine Leukocyte Esterase TRACEH, Urine Blood NEGATIVE, Urine Nitrite NEGATIVE, Urine WBC (Auto) 11H, Urine RBC (Auto) 5H, Urine Hyaline Casts (Auto) 0, Urine Bacteria (Auto) NEGATIVE, Urine Squamous Epithelial Cells 0, Urine Sperm (Auto) 10/08/18 06:28: Nucleated Red Blood Cells % (auto) 0.0, Anion Gap 7L, Glomerular Filtration Rate 39.3L, Blood Urea Nitrogen 47H, Creatinine 1.83H, Sodium Level 139, Potassium Level 4.5, Chloride Level 106, Carbon Dioxide Level 26, Calcium Level 7.8L 10/08/18 06:33: Bedside Glucose (Misc Panel) 157H 10/08/18 11:43: Bedside Glucose (Misc Panel) 183H CBC/BMP Laboratory Tests 10/08/18 06:28 Red Blood Count 3.13 L, Mean Corpuscular Volume 94.2, Mean Corpuscular Hemoglobin 30.7, Mean Corpuscular Hemoglobin Concent 32.5, Red Cell Distribution Width 13.5, Calcium Level 7.8 L Microbiology Microbiology 10/08/18 Urine Culture, Received Pending Sharron Cartwright Oct 08, 2018 14:35
[2018-10-08] MEDS: ATORVASTATIN 10 MG TAB PO SCH (20:57)
[2018-10-08 22:00] VITALS: BP 147/67
[2018-10-09 06:00] VITALS: BP 162/76
[2018-10-09 08:03] LABS: CALCIUM LEVEL 7.6 MG/DL (8.8-10.2); CREATININE FOR GFR 1.49 MG/DL (0.70-1.30); GLOMERULAR FILTRATION RATE 49.8 (>49); POTASSIUM SERUM 4.6 MEQ/L (3.5-5.1)
[2018-10-09] MEDS: HumaLOG INSULIN (NovoLOG) PER UNIT SC SCH ×4 (08:54→20:14)
[2018-10-09] MEDS: LEVEMIR (INSULIN DETEMIR) 1 UNITS/0.01ML SC SCH (08:54)
[2018-10-09] MEDS: TAMSULOSIN 0.4 MG CAP PO SCH (08:54)
[2018-10-09] MEDS: buPROPion (WELLBUTRIN SR) 100 MG SR TAB PO SCH (08:54)
[2018-10-09] MEDS: ASCORBIC ACID 500 MG TAB PO SCH (08:54)
[2018-10-09] MEDS: AMIODARONE 200 MG TAB (PACERONE) PO SCH (08:54)
[2018-10-09] MEDS: FERROUS GLUCONATE 324 MG TAB PO SCH (08:54)
[2018-10-09] MEDS: FAMOTIDINE 20 MG TAB PO SCH (08:55)
[2018-10-09] MEDS: VITAMIN D 1,000 INTERNATIONAL UNITS TABLET PO SCH (08:55)
[2018-10-09] MEDS: ESCITALOPRAM OXALATE 10 MG TAB (LEXAPRO) PO SCH (08:55)
[2018-10-09] MEDS: METOPROLOL SUCC (TopROL XL) 100MG *XL* TAB PO SCH (08:55)
[2018-10-09] MEDS: APIXABAN 2.5 MG TAB (ELIQUIS) PO SCH ×2 (08:55→20:21)
[2018-10-09] MEDS: PREGABALIN 75 MG CAP(LYRICA) PO SCH ×2 (08:55→20:21)
[2018-10-09] MEDS: NORCO, ANEXSIA 5/325MG TABLET (HYDROcodone/ACETAMINOPHEN) PO PRN (08:59)
[2018-10-09] MEDS: SENOKOT S TAB PO SCH ×2 (09:00→20:21)
[2018-10-09] MEDS: LACTULOSE 20 GM/30 ML SYRUP UD PO SCH (09:00)
--- NOTE | 2018-10-09 12:49 | IPNPDOC ---
PM&R Progress Note DATE OF SERVICE: Oct 08, 2018 Wellness Program Manager Progress Note Subjective: Patient reports feeling better today and would like to use more ice for his groin pain. REVIEW OF SYSTEMS: The following is a completed review of systems and has been reviewed. Review of systems otherwise unremarkable. PAIN: Patient self reports right hip pain EYES: Negative for recent vision changes EARS, NOSE, & THROAT:no dysphagia or rhinorrhea CARDIOVASCULAR: +Afib, denies chest pain PULMONARY: Negative. Denies shortness of breath. GASTROINTESTINAL: Negative for constipation or diarrhea GENITOURINARY:+retention MUSCULOSKELETAL: right hip fracture NEUROLOGICAL: no tremor, no focal weakness, +diabetic neuropathy HEMATOLOGICAL:no ecchymosis SKIN: right hip incision PSYCHIATRIC: Unremarkable All other review of systems found to be negative. PHYSICAL EXAMINATION: VITAL SIGNS: Please see below. GENERAL: Pleasant and cooperative. No acute distress. HEENT: PERRL. Extraocular movements intact. Clear conjunctiva CARDIOVASCULAR: Irregular rate and rhythm. No murmurs, rubs, or gallops LUNGS: Clear to auscultation bilaterally. No wheezes. No rhonchi ABDOMEN: Soft, nontender, mildly distended. Positive bowel sounds. Normal active bowel sounds NEUROLOGICAL: Alert and oriented times three. Cranial nerves II through XII grossly intact. Sensation diminished in stocking pattern lower extremities EXTREMITIES: 5\5 strength bilateral upper extremities. 5-\5 strength ankle DF and EHL did not test right hip flexors or knee extensors due to pain 5-/5 strength in left lower extremity. SKIN: right hp inicions c/d/i, no surrounding induration or erythema +bilateral edema ASSESSMENT:67-year-old M with past medical history of CAD sp stent, Afib, DM who presents status post fall with right hip fracture. PLAN: 1. Rehab: OT, OT assess for DME, able to ambulate a few feet with RW 2. Orhto: s.p right hip ORIF, ortho consulted, WBAT 2. Neuro: pmh CVA/TIA, continue secondary stroke prevention measures- statin, ASA, and BP management 3. CArdio: pmh Afib on amiodarone and low dose Eliquis, chronic diastolic HF and HTN, continue home meds and monitor - medicine consulted 4. Endo: pmh DM, continue insulin therapy, will order nutrition consult per patient request to assist with weight loss 6. Renal: elevated BUN and Check Totaler will give IVF 5. DVT ppx: on eliquis, TEDs 6. Pain: Tylenol and [place] prn, ICE TID 7. Psych: depression, continue Welbutrin and Lexapro 8. resp: Incentive spirometry, monitor for cough 9. Dispo: TBD Allergies Coded Allergies: Latex (Verified Allergy, Unknown, Hives, 09/28/18) had reaction to rubber gloves-hives Penicillins (Verified Allergy, Unknown, 01/07/14) Vital Signs Vital Signs Date Time Temp Pulse Resp B/P (MAP) Pulse Ox O2 Delivery O2 Flow Rate FiO2 10/09/18 09:45 20 10/09/18 08:55 82 167/78 10/09/18 06:00 98.6 96 Room Air Laboratory Data CBC/BMP Laboratory Tests 10/09/18 07:27 Calcium Level 7.6 L Labs 24H Laboratory Tests 2 10/08/18 16:53: Bedside Glucose (Misc Panel) 168H 10/08/18 20:44: Bedside Glucose (Misc Panel) 157H 10/09/18 07:27: Anion Gap 7L, Glomerular Filtration Rate 49.8, Blood Urea Nitrogen 44H, Creatinine 1.49H, Sodium Level 141, Potassium Level 4.6, Chloride Level 107, Carbon Dioxide Level 27, Calcium Level 7.6L 10/09/18 11:45: Bedside Glucose (Misc Panel) 208H Microbiology Microbiology 10/08/18 Urine Culture - Final, Complete Current Medications Current Medications Current Medications Acetaminophen (Tylenol Tab) 650 mg Q4HP PRN PO fever/MILD PAIN (PS 1-4); Start 10/06/18 at 16:30 Acetaminophen/ Hydrocodone Bitart ([place], Anexsia 5/325) 1 tab Q4HP PRN PO MODERATE PAIN (PS 5-7); Start 10/06/18 at 16:30 Acetaminophen/ Hydrocodone Bitart ([place], Anexsia 5/325) 2 tab Q4HP PRN PO SEVERE PAIN (PS 8-10) Last administered on 10/09/18at 08:59; Start 10/06/18 at 16:30 Amiodarone HCl (Pacerone, Cordarone) 200 mg DAILY PO Last administered on 10/09/18at 08:54; Start 10/07/18 at 09:00 Apixaban (Eliquis) 2.5 mg BID PO Last administered on 10/09/18at 08:55; Start 10/06/18 at 21:00 Ascorbic Acid (Vitamin C) 500 mg DAILY PO Last administered on 10/09/18at 08:54; Start 10/07/18 at 09:00 Atorvastatin Calcium (Lipitor) 10 mg QHS PO Last administered on 10/08/18at 20:57; Start 10/06/18 at 21:00 Bisacodyl (Dulcolax Suppository) 10 mg DAILYPRN PRN [place] CONSTIPATION; Start 10/06/18 at 16:30 Bupropion HCl (Wellbutrin Sr) 100 mg DAILY PO Last administered on 10/09/18at 08:54; Start 10/07/18 at 09:00 Dextrose (Dextrose 50%) 25 ml ASDIRECTED PRN IV SEE LABEL COMMENTS; Start 10/06/18 at 16:45 Escitalopram Oxalate (Lexapro) 20 mg DAILY PO Last administered on 10/09/18at 08:55; Start 10/07/18 at 09:00 Famotidine (Pepcid) 20 mg DAILY PO Last administered on 10/09/18at 08:55; Start 10/07/18 at 09:00 Ferrous Gluconate (Fergon) 324 mg DAILY PO Last administered on 10/09/18at 08:54; Start 10/07/18 at 09:00 Glucagon (Glucagon) 1 mg ASDIRECTED PRN SC SEE LABEL COMMENTS; Start 10/06/18 at 16:45 Glucose (Glucose) 16 GM ASDIRECTED PRN PO SEE LABEL COMMENTS; Start 10/06/18 at 16:45 Home Med (Med Rec Complete!) ASDIRECTED XX ; Start 10/06/18 at 17:30; Stop 10/06/18 at 17:30; Status DC Insulin Detemir (Levemir Insulin) 45 units DAILY SC Last administered on 10/09/18at 08:54; Start 10/07/18 at 09:00 Insulin Human Lispro (HumaLOG INSULIN) SEE PROTOCOL TABLE AC SC Last administered on 10/09/18at 08:54; Start 10/06/18 at 17:30 Insulin Human Lispro (HumaLOG INSULIN) See Protocol Table QHS SC ; Start 10/06/18 at 21:00 Lactulose (Cephulac) 30 ml DAILY PO ; Start 10/07/18 at 09:00 Magnesium Hydroxide (Milk Of Magnesia) 30 ml DAILYPRN PRN PO CONSTIPATION; Start 10/06/18 at 16:30 Metoprolol Succinate (TopROL XL) 100 mg DAILY PO Last administered on 10/09/18at 08:55; Start 10/07/18 at 09:00 Pregabalin (Lyrica) 150 mg BID PO Last administered on 10/09/18at 08:55; Start 10/06/18 at 21:00 Senna/Docusate Sodium (Senokot S) 1 tab BID PO Last administered on 10/08/18at 20:57; Start 10/06/18 at 21:00 Tamsulosin HCl (Flomax) 0.4 mg DAILY PO Last administered on 10/09/18at 08:54; Start 10/07/18 at 09:00 Vitamin D (Vitamin D) 1,000 units DAILY PO Last administered on 10/09/18at 08:55; Start 10/07/18 at 09:00 KARLA ULLOA MD Oct 09, 2018 12:49
[2018-10-09 14:00] VITALS: BP 146/76
[2018-10-09] MEDS: ATORVASTATIN 10 MG TAB PO SCH (20:21)
[2018-10-09 22:00] VITALS: BP 144/70
[2018-10-10 06:00] VITALS: BP 152/84
[2018-10-10] MEDS: METOPROLOL SUCC (TopROL XL) 100MG *XL* TAB PO SCH (09:00)
[2018-10-10] MEDS: VITAMIN D 1,000 INTERNATIONAL UNITS TABLET PO SCH (09:32)
[2018-10-10] MEDS: APIXABAN 2.5 MG TAB (ELIQUIS) PO SCH ×2 (09:32→20:50)
[2018-10-10] MEDS: PREGABALIN 75 MG CAP(LYRICA) PO SCH ×2 (09:32→20:49)
[2018-10-10] MEDS: ASCORBIC ACID 500 MG TAB PO SCH (09:32)
[2018-10-10] MEDS: FERROUS GLUCONATE 324 MG TAB PO SCH (09:32)
[2018-10-10] MEDS: ESCITALOPRAM OXALATE 10 MG TAB (LEXAPRO) PO SCH (09:32)
[2018-10-10] MEDS: AMIODARONE 200 MG TAB (PACERONE) PO SCH (09:32)
[2018-10-10] MEDS: FAMOTIDINE 20 MG TAB PO SCH (09:32)
[2018-10-10] MEDS: TAMSULOSIN 0.4 MG CAP PO SCH (09:32)
[2018-10-10] MEDS: SENOKOT S TAB PO SCH ×2 (09:32→20:49)
[2018-10-10] MEDS: buPROPion (WELLBUTRIN SR) 100 MG SR TAB PO SCH (09:32)
[2018-10-10] MEDS: LACTULOSE 20 GM/30 ML SYRUP UD PO SCH (09:33)
[2018-10-10] MEDS: HumaLOG INSULIN (NovoLOG) PER UNIT SC SCH ×4 (09:33→20:50)
[2018-10-10] MEDS: LEVEMIR (INSULIN DETEMIR) 1 UNITS/0.01ML SC SCH (09:34)
[2018-10-10 16:48] VITALS: BP 160/74
[2018-10-10 20:00] VITALS: BP 162/80
[2018-10-10] MEDS: ATORVASTATIN 10 MG TAB PO SCH (20:49)
[2018-10-10] MEDS: NORCO, ANEXSIA 5/325MG TABLET (HYDROcodone/ACETAMINOPHEN) PO PRN (20:50)
[2018-10-11 05:47] VITALS: BP 133/75
[2018-10-11] MEDS: LACTULOSE 20 GM/30 ML SYRUP UD PO SCH (08:05)
[2018-10-11] MEDS: LEVEMIR (INSULIN DETEMIR) 1 UNITS/0.01ML SC SCH (08:05)
[2018-10-11] MEDS: APIXABAN 2.5 MG TAB (ELIQUIS) PO SCH ×2 (08:06→21:50)
[2018-10-11] MEDS: VITAMIN D 1,000 INTERNATIONAL UNITS TABLET PO SCH (08:06)
[2018-10-11] MEDS: ASCORBIC ACID 500 MG TAB PO SCH (08:06)
[2018-10-11] MEDS: TAMSULOSIN 0.4 MG CAP PO SCH (08:06)
[2018-10-11] MEDS: PREGABALIN 75 MG CAP(LYRICA) PO SCH ×2 (08:06→21:50)
[2018-10-11] MEDS: SENOKOT S TAB PO SCH ×2 (08:06→21:50)
[2018-10-11] MEDS: HumaLOG INSULIN (NovoLOG) PER UNIT SC SCH ×4 (08:06→21:00)
[2018-10-11] MEDS: FERROUS GLUCONATE 324 MG TAB PO SCH (08:06)
[2018-10-11] MEDS: ESCITALOPRAM OXALATE 10 MG TAB (LEXAPRO) PO SCH (08:06)
[2018-10-11] MEDS: FAMOTIDINE 20 MG TAB PO SCH (08:06)
[2018-10-11] MEDS: AMIODARONE 200 MG TAB (PACERONE) PO SCH (08:06)
[2018-10-11] MEDS: buPROPion (WELLBUTRIN SR) 100 MG SR TAB PO SCH (08:07)
[2018-10-11] MEDS: METOPROLOL SUCC (TopROL XL) 100MG *XL* TAB PO SCH (08:07)
[2018-10-11] MEDS: FUROSEMIDE 20 MG TAB PO SCH (12:17)
[2018-10-11] MEDS: NORCO, ANEXSIA 5/325MG TABLET (HYDROcodone/ACETAMINOPHEN) PO PRN ×2 (12:17→21:51)
--- NOTE | 2018-10-11 13:47 | IPNPDOC ---
Date Seen The patient was seen on 10/11/18. Progress Note HPI: Mr. Mills is a 67-year-old who reported being in his usual state of health until the evening of admission when he was visiting his daughter at her place of employment when he slipped and fell on his right hip to the ground. He subsequently felt pain and was unable to raise off the ground. Activated EMS and presented to the emergency room. Imaging revealing right intertrochanteric femoral fracture. Orthopedics was consulted. S/P right hip trochanteric fixation nailing (TFN) for intertrochanteric hip fracture. Pt was transferred to ARU, Dr Albarran, 10/06/18. The pt states his pain is controlled. Pt is OOB to wheelchair. The pt states he has noticed LE edema over the weekend. Denies any fevers, chills, weakness, fatigue, Headache, Chest Pain, Shortness of breath, cough, palpitations, abdominal pain, N/V/D or changes in bowel or bladder habits. PMHx: DM HTN HLD CAD GERD CHF TTE 09/28/18 EF 65%, DD. PSHX: Cholecystectomy. CAD with stent placement 2000. PE: GEN: 67yoM, appears stated age. No acute distress. Alert and oriented x 3. Pleasant, interactive. HEENT: Normocephalic, atraumatic. Sclera are nonicteric. Conjunctiva without injection. Nose midline. No facial asymmetry. Moist mucous membranes. CHEST: Regular rate and rhythm, +S1, +S2 LUNGS: Clear to auscultation bilaterally. No wheezes, rales, or rhonchi. ABD: Round, soft, non-tender, non-distended. +Bowel sounds throughout. No claudia ound or guarding. EXT: 1-2mm lower extremity edema appreciated. SKIN: [place], dry, warm. No rashes. NEURO: Alert and oriented x 3. Cranial nerves III-XII are intact. No focal deficits appreciated. A&P: Mr. Mills is a 67-year-old who reported being in his usual state of health until the evening of admission when he was visiting his daughter at her place of employment when he slipped and fell on his right hip to the ground. He subsequently felt pain and was unable to raise off the ground. Activated EMS an d presented to the emergency room. Imaging revealing right intertrochanteric femoral fracture. Orthopedics was consulted. S/P right hip trochanteric fixation nailing (TFN) for intertrochanteric hip fracture. Pt was transferred to ARU, Dr Albarran, 10/06/18. 1. Mechanical fall resulting in right intertrochanteric femur fracture/IM nail right hip on 09/30/2018. Management as per Orthopedics. PT/OT/ST as per ARU Pain control as per ARU Bowel care as per ARU Disposition as per ARU DVT px. Continue Eliquis 2.5mg by mouth twice daily for anticoagulation. 2. Acute on chronic kidney disease, stage III: Baseline 1.6-1.8 Creatinine 1.49. S/P IVF x 1 liter 10/08/18 Lasix 20 mg po daily added 10/11. Monitor BMP. 3. Hematuria: Status post Hdez catheter. Follow-up urinalysis has normalized. Could consider outpatient follow-up with urology. 4. Iron deficiency Anemia Started iron supplement daily with vitamin C. Peripheral smear Normocytic anemia; patient is status-post hip surgery. No blasts identified. Minimal thrombocytopenia with normal platelet morphology. Folate 8.7. Vitamin B12 level WNL. No signs of bleeding. Hgb stable, 9.6. Monitor 5. Diabetes mellitus with hyperglycemia and neuropathy: CC diet Continue with Levemir 45 units subcutaneously daily. SSI. Lyrica. 6. Recent diagnosis of atrial fibrillation: Continue to Eliquis, metoprolol, and amiodarone. 7. Depression: Continue Lexapro. 8. Gastroesophageal reflux disease: Continue famotidine and omeprazole. 9. Benign prostatic hyperplasia: Continue Flomax. 10. Coronary artery disease status-post cardiac stenting: Follows with Dr. Johnson. Status-post stenting in 2000. 11. LVH EF 65%/DD. S/P IVF 10/08/18 x 1 liter. Pt with LE edema this AM, Lasix 20 mg daily added. Monitor. 12. History of TIA/CVA: Residual left-sided weakness. Monitor. VS, I&O, 24H, Fishbone Vital Signs/I&O Vital Signs Date Time Temp Pulse Resp B/P (MAP) Pulse Ox O2 Delivery O2 Flow Rate FiO2 10/11/18 12:47 16 Room Air 10/11/18 08:07 56 10/11/18 05:47 98.7 133/75 (94) 95 I&O- Last 24 Hours up to 6 AM 10/11/18 06:00 Intake Total 1980 ml Output Total 2250 ml Balance -270 ml Laboratory Data 24H LABS Laboratory Tests 2 10/10/18 17:06: Bedside Glucose (Misc Panel) 102 10/10/18 20:06: Bedside Glucose (Misc Panel) 114 10/11/18 05:26: Bedside Glucose (Misc Panel) 113 10/11/18 12:00: Bedside Glucose (Misc Panel) 224H Microbiology Microbiology 10/08/18 Urine Culture - Final, Complete Sharron Cartwright Oct 11, 2018 13:47
[2018-10-11 14:00] VITALS: BP 155/70
--- NOTE | 2018-10-11 15:56 | IPNPDOC ---
PM&R Progress Note DATE OF SERVICE: Oct 11, 2018 Marketing Developer Progress Note Subjective: Patient reports he is enjoying therapy and would like to try using a smaller commode. REVIEW OF SYSTEMS: The following is a completed review of systems and has been reviewed. Review of systems otherwise unremarkable. PAIN: Patient self reports right hip pain EYES: Negative for recent vision changes EARS, NOSE, & THROAT:no dysphagia or rhinorrhea CARDIOVASCULAR: +Afib, denies chest pain PULMONARY: Negative. Denies shortness of breath. GASTROINTESTINAL: Negative for constipation or diarrhea GENITOURINARY:+retention MUSCULOSKELETAL: right hip fracture NEUROLOGICAL: no tremor, no focal weakness, +diabetic neuropathy HEMATOLOGICAL:no ecchymosis SKIN: right hip incision PSYCHIATRIC: Unremarkable All other review of systems found to be negative. PHYSICAL EXAMINATION: VITAL SIGNS: Please see below. GENERAL: Pleasant and cooperative. No acute distress. HEENT: PERRL. Extraocular movements intact. Clear conjunctiva CARDIOVASCULAR: Irregular rate and rhythm. No murmurs, rubs, or gallops LUNGS: Clear to auscultation bilaterally. No wheezes. No rhonchi ABDOMEN: Soft, nontender, mildly distended. Positive bowel sounds. Normal active bowel sounds NEUROLOGICAL: Alert and oriented times three. Cranial nerves II through XII grossly intact. Sensation diminished in stocking pattern lower extremities EXTREMITIES: 5\5 strength bilateral upper extremities. 5-\5 strength ankle DF and EHL did not test right hip flexors or knee extensors due to pain 5-/5 strength in left lower extremity. SKIN: right hp inicions c/d/i, no surrounding induration or erythema +bilateral edema ASSESSMENT:67-year-old M with past medical history of CAD sp stent, Afib, DM who presents status post fall with right hip fracture. PLAN: 1. Rehab: OT, OT assess for DME, able to ambulate a few feet with RW, will work on Mod-I bed to commode transfers 2. Ortho: s.p right hip ORIF, ortho consulted, WBAT 2. Neuro: pmh CVA/TIA, continue secondary stroke prevention measures- statin, ASA, and BP management 3. CArdio: pmh Afib on amiodarone and low dose Eliquis, chronic diastolic HF and HTN, continue home meds and monitor - medicine consulted 4. Endo: pmh DM, continue insulin therapy, will order nutrition consult per patient request to assist with weight loss 6. Renal: elevated BUN and Media Assistant will give IVF 5. DVT ppx: on eliquis, TEDs 6. Pain: Tylenol and [place] prn, ICE TID 7. Psych: depression, continue Wellbutrin and Lexapro 8. resp: Incentive spirometry, monitor for cough 9. Skin: bilateral LE edema, will give short trial of Lasix, alyson wrap and elev ate legs while in bed 9. Dispo: 10/25/18 to home Allergies Coded Allergies: Latex (Verified Allergy, Unknown, Hives, 09/28/18) had reaction to rubber gloves-hives Penicillins (Verified Allergy, Unknown, 01/07/14) Vital Signs Vital Signs Date Time Temp Pulse Resp B/P (MAP) Pulse Ox O2 Delivery O2 Flow Rate FiO2 10/11/18 12:47 16 Room Air 10/11/18 08:07 56 10/11/18 05:47 98.7 133/75 (94) 95 Laboratory Data Labs 24H Laboratory Tests 2 10/10/18 17:06: Bedside Glucose (Misc Panel) 102 10/10/18 20:06: Bedside Glucose (Misc Panel) 114 10/11/18 05:26: Bedside Glucose (Misc Panel) 113 10/11/18 12:00: Bedside Glucose (Misc Panel) 224H Microbiology Microbiology 10/08/18 Urine Culture - Final, Complete Current Medications Current Medications Current Medications Acetaminophen (Tylenol Tab) 650 mg Q4HP PRN PO fever/MILD PAIN (PS 1-4); Start 10/06/18 at 16:30 Acetaminophen/ Hydrocodone Bitart ([place], Anexsia 5/325) 1 tab Q4HP PRN PO MODERATE PAIN (PS 5-7) Last administered on 10/11/18at 12:17; Start 10/06/18 at 16:30 Acetaminophen/ Hydrocodone Bitart ([place], Anexsia 5/325) 2 tab Q4HP PRN PO SEVERE PAIN (PS 8-10) Last administered on 10/10/18at 20:50; Start 10/06/18 at 16:30 Amiodarone HCl ([place], Cordarone) 200 mg DAILY PO Last administered on 10/11/18at 08:06; Start 10/07/18 at 09:00 Apixaban (Eliquis) 2.5 mg BID PO Last administered on 10/11/18 08:06; Start 10/06/18 at 21:00 Ascorbic Acid (Vitamin C) 500 mg DAILY PO Last administered on 10/11/18at 08:06; Start 10/07/18 at 09:00 Atorvastatin Calcium (Lipitor) 10 mg QHS PO Last administered on 10/10/18at 20:49; Start 10/06/18 at 21:00 Bisacodyl (Dulcolax Suppository) 10 mg DAILYPRN PRN ND CONSTIPATION; Start 10/06/18 at 16:30 Bupropion HCl (Wellbutrin Sr) 100 mg DAILY PO Last administered on 10/11/18 08:07; Start 10/07/18 at 09:00 Dextrose (Dextrose 50%) 25 ml ASDIRECTED PRN IV SEE LABEL COMMENTS; Start 10/06/18 at 16:45 Escitalopram Oxalate (Lexapro) 20 mg DAILY PO Last administered on 10/11/18at 08:06; Start 10/07/18 at 09:00 Famotidine (Pepcid) 20 mg DAILY PO Last administered on 10/11/18at 08:06; Start 10/07/18 at 09:00 Ferrous Gluconate (Fergon) 324 mg DAILY PO Last administered on 10/11/18at 08:06; Start 10/07/18 at 09:00 Furosemide (Lasix) 20 mg DAILY PO Last administered on 10/11/18at 12:17; Start 10/11/18 at 09:00; Stop 10/17/18 at 09:01 Glucagon (Glucagon) 1 mg ASDIRECTED PRN SC SEE LABEL COMMENTS; Start 10/06/18 at 16:45 Glucose (Glucose) 16 GM ASDIRECTED PRN PO SEE LABEL COMMENTS; Start 10/06/18 at 16:45 Home Med (Med Rec Complete!) ASDIRECTED XX ; Start 10/06/18 at 17:30; Stop 10/06/18 at 17:30; Status DC Insulin Detemir (Levemir Insulin) 45 units DAILY SC Last administered on 10/11/18at 08:05; Start 10/07/18 at 09:00 Insulin Human Lispro (HumaLOG INSULIN) SEE PROTOCOL TABLE AC SC Last administered on 10/11/18at 12:20; Start 10/06/18 at 17:30 Insulin Human Lispro (HumaLOG INSULIN) See Protocol Table QHS SC ; Start 10/06/18 at 21:00 Lactulose (Cephulac) 30 ml DAILY PO Last administered on 10/11/18at 08:05; Start 10/07/18 at 09:00 Magnesium Hydroxide (Milk Of Magnesia) 30 ml DAILYPRN PRN PO CONSTIPATION; Start 10/06/18 at 16:30 Metoprolol Succinate (TopROL XL) 100 mg DAILY PO Last administered on 10/09/18at 08:55; Start 10/07/18 at 09:00 Pregabalin (Lyrica) 150 mg BID PO Last administered on 10/11/18 08:06; Start 10/06/18 at 21:00 Senna/Docusate Sodium (Senokot S) 1 tab BID PO Last administered on 10/11/18 08:06; Start 10/06/18 at 21:00 Tamsulosin HCl (Flomax) 0.4 mg DAILY PO Last administered on 10/11/18 08:06; Start 10/07/18 at 09:00 Vitamin D (Vitamin D) 1,000 units DAILY PO Last administered on 10/11/18 08:06; Start 10/07/18 at 09:00 KARLA ULLOA MD Oct 11, 2018 15:56
[2018-10-11 20:00] VITALS: BP 172/62
[2018-10-11] MEDS: ATORVASTATIN 10 MG TAB PO SCH (21:50)
[2018-10-12] MEDS: NORCO, ANEXSIA 5/325MG TABLET (HYDROcodone/ACETAMINOPHEN) PO PRN ×3 (01:53→21:12)
[2018-10-12 06:00] VITALS: BP 131/60
[2018-10-12 06:24] LABS: BASO % 0.4 % (0.0-1.0); EOS # 0.3 10^3/uL (0.0-0.50); EOS % 4.5 % (0.0-3.0); HEMATOCRIT 29.9 % (42.0-52.0); HEMOGLOBIN 9.5 g/dl (13.5-17.5); LYMPH # 1.8 10^3/uL (1.5-4.5); LYMPH % 25.5 % (24.0-44.0); MEAN CORPUSCULAR HEMOGLOBIN 30.6 pg (27.0-33.0); MEAN CORPUSCULAR HGB CONC 31.8 g/dl (32.0-36.5); MEAN CORPUSCULAR VOLUME 96.5 fl (80.0-96.0); MONO # 0.5 10^3/uL (0.0-0.8); NEUTROPHILS # 4.3 10^3/uL (1.8-7.7); NEUTROPHILS % 61.7 % (36.0-66.0); PLATELET COUNT, AUTOMATED 234 10^3/uL (150-450); WHITE BLOOD COUNT 6.9 10^3/uL (4.0-10.0)
[2018-10-12 06:46] LABS: CALCIUM LEVEL 8.1 MG/DL (8.8-10.2); CREATININE FOR GFR 1.54 MG/DL (0.70-1.30); GLOMERULAR FILTRATION RATE 47.9 (>49); POTASSIUM SERUM 4.2 MEQ/L (3.5-5.1)
[2018-10-12] MEDS: METOPROLOL SUCC (TopROL XL) 100MG *XL* TAB PO SCH (09:00)
[2018-10-12] MEDS: LACTULOSE 20 GM/30 ML SYRUP UD PO SCH (09:06)
[2018-10-12] MEDS: HumaLOG INSULIN (NovoLOG) PER UNIT SC SCH ×4 (09:07→21:13)
[2018-10-12] MEDS: LEVEMIR (INSULIN DETEMIR) 1 UNITS/0.01ML SC SCH (09:07)
[2018-10-12] MEDS: PREGABALIN 75 MG CAP(LYRICA) PO SCH ×2 (09:08→21:12)
[2018-10-12] MEDS: APIXABAN 2.5 MG TAB (ELIQUIS) PO SCH ×2 (09:08→21:13)
[2018-10-12] MEDS: TAMSULOSIN 0.4 MG CAP PO SCH (09:08)
[2018-10-12] MEDS: FAMOTIDINE 20 MG TAB PO SCH (09:08)
[2018-10-12] MEDS: buPROPion (WELLBUTRIN SR) 100 MG SR TAB PO SCH (09:08)
[2018-10-12] MEDS: FERROUS GLUCONATE 324 MG TAB PO SCH (09:09)
[2018-10-12] MEDS: FUROSEMIDE 20 MG TAB PO SCH (09:09)
[2018-10-12] MEDS: AMIODARONE 200 MG TAB (PACERONE) PO SCH (09:09)
[2018-10-12] MEDS: ASCORBIC ACID 500 MG TAB PO SCH (09:09)
[2018-10-12] MEDS: SENOKOT S TAB PO SCH ×2 (09:09→21:13)
[2018-10-12] MEDS: ESCITALOPRAM OXALATE 10 MG TAB (LEXAPRO) PO SCH (09:09)
[2018-10-12] MEDS: VITAMIN D 1,000 INTERNATIONAL UNITS TABLET PO SCH (09:09)
--- NOTE | 2018-10-12 13:37 | IPNPDOC ---
Date Seen The patient was seen on 10/12/18. Progress Note HPI: Mr. Mills is a 67-year-old who reported being in his usual state of health until the evening of admission when he was visiting his daughter at her place of employment when he slipped and fell on his right hip to the ground. He subsequently felt pain and was unable to raise off the ground. Activated EMS and presented to the emergency room. Imaging revealing right intertrochanteric femoral fracture. Orthopedics was consulted. S/P right hip trochanteric fixation nailing (TFN) for intertrochanteric hip fracture. Pt was transferred to ARU, Dr Albarran, 10/06/18. Pt is OOB to wheelchair. The pt states LE edema decreased today. Denies any fevers, chills, weakness, fatigue, Headache, Chest Pain, Shortness of breath, cough, palpitations, abdominal pain, N/V/D or changes in bowel or b ladder habits. PMHx: DM HTN HLD CAD GERD CHF TTE 09/28/18 EF 65%, DD. PSHX: Cholecystectomy. CAD with stent placement 2000. PE: GEN: 67yoM, appears stated age. No acute distress. Alert and oriented x 3. Pleasant, interactive. HEENT: Normocephalic, atraumatic. Sclera are nonicteric. Conjunctiva without injection. Nose midline. No facial asymmetry. Moist mucous membranes. CHEST: Regular rate and rhythm, +S1, +S2 LUNGS: Clear to auscultation bilaterally. No wheezes, rales, or rhonchi. ABD: Round, soft, non-tender, non-distended. +Bowel sounds throughout. No rebound or guarding. EXT: 1mm lower extremity edema appreciated. TEDS in place. SKIN: [place], dry, warm. No rashes. NEURO: Alert and oriented x 3. Cranial nerves III-XII are intact. No focal deficits appreciated. A&P: Mr. Mills is a 67-year-old who reported being in his usual state of health until the evening of admission when he was visiting his daughter at her place of employment when he slipped and fell on his right hip to the ground. He subsequently felt pain and was unable to raise off the ground. Activated EMS and presented to the emergency room. Imaging revealing right intertrochanteric femoral fracture. Orthopedics was consulted. S/P right hip trochanteric fixation nailing (TFN) for intertrochanteric hip fracture. Pt was transferred to ARU, Dr Albarran, 10/06/18. 1. Mechanical fall resulting in right intertrochanteric femur fracture/IM nail right hip on 09/30/2018. Management as per Orthopedics. PT/OT/ST as per ARU Pain control as per ARU Bowel care as per ARU Disposition as per ARU DVT px. Continue Eliquis 2.5mg by mouth twice daily for anticoagulation. 2. Acute on chronic kidney disease, stage III: Baseline 1.6-1.8 Creatinine 1.54. S/P IVF x 1 liter 10/08/18 Lasix 20 mg po daily added 10/11. Monitor BMP. 3. Hematuria: Status post Hdez catheter. Follow-up urinalysis has normalized. Could consider outpatient follow-up with urology. 4. Iron deficiency Anemia Started iron supplement daily with vitamin C. Peripheral smear Normocytic anemia; patient is status-post hip surgery. No blasts identified. Minimal thrombocytopenia with normal platelet morphology. Folate 8.7. Vitamin B12 level WNL. No signs of bleeding. Hgb stable, 9.5. Monitor 5. Diabetes mellitus with hyperglycemia and neuropathy: CC diet BS was noted to be 34 this AM. Pt felt dizzy. States he ate all of his breakfast. Discussed with Dr Albarran, she plans to decrease Levemir dose. SSI. Lyrica. Monitor BS. 6. Recent diagnosis of atrial fibrillation: Continue to Eliquis, metoprolol, and amiodarone. 7. Depression: Continue Lexapro. 8. Gastroesophageal reflux disease: Continue famotidine and omeprazole. 9. Benign prostatic hyperplasia: Continue Flomax. 10. Coronary artery disease status-post cardiac stenting: Follows with Dr. Johnson. Status-post stenting in 2000. 11. LVH EF 65%/DD. S/P IVF 10/08/18 x 1 liter. Improved LE edema, Continue with Lasix 20 mg daily. Monitor BMP. 12. History of TIA/CVA: Residual left-sided weakness. Monitor. VS, I&O, 24H, Fishbone Vital Signs/I&O Vital Signs Date Time Temp Pulse Resp B/P (MAP) Pulse Ox O2 Delivery O2 Flow Rate FiO2 10/12/18 10:53 18 Room Air 10/12/18 09:00 61 131/60 10/12/18 06:00 97.1 95 I&O- Last 24 Hours up to 6 AM 10/12/18 06:00 Intake Total 1980 ml Output Total 980 ml Balance 1000 ml Laboratory Data 24H LABS Laboratory Tests 2 10/11/18 17:14: Bedside Glucose (Misc Panel) 161H 10/11/18 19:54: Bedside Glucose (Misc Panel) 115 10/12/18 06:03: Immature Granulocyte % (Auto) 0.9, White Blood Count 6.9, Red Blood Count 3.10L, Hemoglobin 9.5L, Hematocrit 29.9L, Mean Corpuscular Volume 96.5H, Mean Corpuscular Hemoglobin 30.6, Mean Corpuscular Hemoglobin Concent 31.8L, Red Cell Distribution Width 13.3, Platelet Count 234, Neutrophils (%) (Auto) 61.7, Lymphocytes (%) (Auto) 25.5, Monocytes (%) (Auto) 7.0H, Eosinophils (%) (Auto) 4.5H, Basophils (%) (Auto) 0.4, Neutrophils # (Auto) 4.3, Lymphocytes # (Auto) 1.8, Monocytes # (Auto) 0.5, Eosinophils # (Auto) 0.3, Basophils # (Auto) 0.0, Nucleated Red Blood Cells % (auto) 0.0, Anion Gap 5L, Glomerular Filtration Rate 47.9L, Blood Urea Nitrogen 37H, Creatinine 1.54H, Sodium Level 143, Potassium Level 4.2, Chloride Level 109H, Carbon Dioxide Level 29, Calcium Level 8.1L 10/12/18 06:34: Bedside Glucose (Misc Panel) 123H 10/12/18 11:11: Bedside Glucose (Misc Panel) 34*L 10/12/18 11:27: Bedside Glucose Confirm (Misc) 44 10/12/18 11:36: Bedside Glucose (Misc Panel) 44L 10/12/18 13:00: Bedside Glucose (Misc Panel) 62L CBC/BMP Laboratory Tests 10/12/18 06:03 Red Blood Count 3.10 L, Mean Corpuscular Volume 96.5 H, Mean Corpuscular Hemoglobin 30.6, Mean Corpuscular Hemoglobin Concent 31.8 L, Red Cell Distribution Width 13.3, Neutrophils (%) (Auto) 61.7, Lymphocytes (%) (Auto) 25.5, Monocytes (%) (Auto) 7.0 H, Eosinophils (%) (Auto) 4.5 H, Basophils (%) (Auto) 0.4, Neutrophils # (Auto) 4.3, Lymphocytes # (Auto) 1.8, Monocytes # (Auto) 0.5, Eosinophils # (Auto) 0.3, Basophils # (Auto) 0.0, Calcium Level 8.1 L Microbiology Microbiology 10/08/18 Urine Culture - Final, Complete Sharron Cartwright Oct 12, 2018 13:37
[2018-10-12 14:00] VITALS: BP 159/75
[2018-10-12 20:00] VITALS: BP 122/72
[2018-10-12] MEDS: ATORVASTATIN 10 MG TAB PO SCH (21:13)
[2018-10-13 06:00] VITALS: BP 138/79
[2018-10-13] MEDS: HumaLOG INSULIN (NovoLOG) PER UNIT SC SCH ×4 (07:47→21:50)
[2018-10-13] MEDS: NORCO, ANEXSIA 5/325MG TABLET (HYDROcodone/ACETAMINOPHEN) PO PRN ×4 (07:48→22:25)
[2018-10-13] MEDS: TAMSULOSIN 0.4 MG CAP PO SCH (08:15)
[2018-10-13] MEDS: LACTULOSE 20 GM/30 ML SYRUP UD PO SCH (08:15)
[2018-10-13] MEDS: FAMOTIDINE 20 MG TAB PO SCH (08:15)
[2018-10-13] MEDS: buPROPion (WELLBUTRIN SR) 100 MG SR TAB PO SCH (08:15)
[2018-10-13] MEDS: FERROUS GLUCONATE 324 MG TAB PO SCH (08:15)
[2018-10-13] MEDS: METOPROLOL SUCC (TopROL XL) 100MG *XL* TAB PO SCH (08:16)
[2018-10-13] MEDS: FUROSEMIDE 20 MG TAB PO SCH (08:16)
[2018-10-13] MEDS: SENOKOT S TAB PO SCH ×3 (08:16→21:50)
[2018-10-13] MEDS: PREGABALIN 75 MG CAP(LYRICA) PO SCH ×2 (08:16→21:49)
[2018-10-13] MEDS: ESCITALOPRAM OXALATE 10 MG TAB (LEXAPRO) PO SCH (08:16)
[2018-10-13] MEDS: ASCORBIC ACID 500 MG TAB PO SCH (08:16)
[2018-10-13] MEDS: VITAMIN D 1,000 INTERNATIONAL UNITS TABLET PO SCH (08:16)
[2018-10-13] MEDS: APIXABAN 2.5 MG TAB (ELIQUIS) PO SCH ×2 (08:16→21:49)
[2018-10-13] MEDS: AMIODARONE 200 MG TAB (PACERONE) PO SCH (08:16)
--- NOTE | 2018-10-13 12:57 | IPNPDOC ---
Date Seen The patient was seen on 10/13/18. Progress Note HPI: Mr. Mills is a 67-year-old who reported being in his usual state of health until the evening of admission when he was visiting his daughter at her place of employment when he slipped and fell on his right hip to the ground. He subsequently felt pain and was unable to raise off the ground. Activated EMS and presented to the emergency room. Imaging revealing right intertrochanteric femoral fracture. Orthopedics was consulted. S/P right hip trochanteric fixation nailing (TFN) for intertrochanteric hip fracture. Pt was transferred to ARU, Dr Albarran, 10/06/18. Pt is OOB to wheelchair. The pt states LE edema is better. Nursing states Pt drinks alot of fluids throughout the day. Pt states he is eating and drinking well. Denies any fevers, chills, weakness, fatigue, Headache, Chest Pain, Shortness of breath, cough, palpitations, abdominal pain, N/V/D or changes in bowel or bladder habits. PMHx: DM HTN HLD CAD GERD CHF TTE 09/28/18 EF 65%, DD. PSHX: Cholecystectomy. CAD with stent placement 2000. PE: GEN: 67yoM, appears stated age. No acute distress. Alert and oriented x 3. Pleasant, interactive. HEENT: Normocephalic, atraumatic. Sclera are nonicteric. Conjunctiva without injection. Nose midline. No facial asymmetry. Moist mucous membranes. CHEST: Regular rate and rhythm, +S1, +S2 LUNGS: Clear to auscultation bilaterally. No wheezes, rales, or rhonchi. ABD: Round, soft, non-tender, non-distended. +Bowel sounds throughout. No rebound or guarding. EXT: 1mm lower extremity edema appreciated B/L pretib areas. TEDS in place. SKIN: [place], dry, warm. No rashes. NEURO: Alert and oriented x 3. Cranial nerves III-XII are intact. No focal deficits appreciated. A&P: Mr. Mills is a 67-year-old who reported being in his usual state of health until the evening of admission when he was visiting his daughter at her place of employment when he slipped and fell on his right hip to the ground. He subsequently felt pain and was unable to raise off the ground. Activated EMS and presented to the emergency room. Imaging revealing right intertrochanteric femoral fracture. Orthopedics was consulted. S/P right hip trochanteric fixation nailing (TFN) for intertrochanteric hip fracture. Pt was transferred to ARU, Dr Albarran, 10/06/18. 1. Mechanical fall resulting in right intertrochanteric femur fracture/IM nail right hip on 09/30/2018. Management as per Orthopedics. PT/OT/ST as per ARU Pain control as per ARU Bowel care as per ARU Disposition as per ARU DVT px. Continue Eliquis 2.5mg by mouth twice daily for anticoagulation. 2. Acute on chronic kidney disease, stage III: Baseline 1.6-1.8 10/12/18 Creatinine 1.54. S/P IVF x 1 liter 10/08/18 Lasix 20 mg po daily added 10/11. Monitor I/O. Monitor daily wt 1800cc FR Monitor BMP. 3. Hematuria: Status post Hdez catheter. Follow-up urinalysis has normalized. Could consider outpatient follow-up with urology. 4. Iron deficiency Anemia Started iron supplement daily with vitamin C. Peripheral smear Normocytic anemia; patient is status-post hip surgery. No blasts identified. Minimal thrombocytopenia with normal platelet morphology. Folate 8.7. Vitamin B12 level WNL. No signs of bleeding. 10/12/18 Hgb 9.5. Monitor 5. Diabetes mellitus with hyperglycemia and neuropathy: CC diet. Pt readily admits he follows diet much differently while here. BS was noted to be 34 10/12/18 AM. Pt felt dizzy. Levemir on hold, no further hypoglycemia. BS 146 this AM. SSI. Lyrica. Monitor BS. 6. Recent diagnosis of atrial fibrillation. Continue to Eliquis, metoprolol, and amiodarone. 7. Depression: Continue Lexapro. 8. Gastroesophageal reflux disease: Continue famotidine and omeprazole. 9. Benign prostatic hyperplasia: Continue Flomax. 10. Coronary artery disease status-post cardiac stenting: Follows with Dr. Johnson. Status-post stenting in 2000. 11. HTN/HHD/LVH EF 65%/DD. S/P IVF 10/08/18 x 1 liter. Improved LE edema, Continue with Lasix 20 mg daily. Hydralazine 12.5 mg Q8 added for elevated BP this AM. Monitor BMP. 12. History of TIA/CVA: Residual left-sided weakness. Monitor. VS, I&O, 24H, Fishbone Vital Signs/I&O Vital Signs Date Time Temp Pulse Resp B/P (MAP) Pulse Ox O2 Delivery O2 Flow Rate FiO2 10/13/18 11:59 19 10/13/18 08:16 72 190/91 10/13/18 06:00 98.4 93 Room Air I&O- Last 24 Hours up to 6 AM 10/13/18 06:00 Intake Total 1560 ml Output Total 1350 ml Balance 210 ml Laboratory Data 24H LABS Laboratory Tests 2 10/12/18 13:00: Bedside Glucose (Misc Panel) 62L 10/12/18 16:44: Bedside Glucose (Misc Panel) 110 10/12/18 19:47: Bedside Glucose (Misc Panel) 238H 10/13/18 06:27: Bedside Glucose (Misc Panel) 146H Microbiology Microbiology 10/08/18 Urine Culture - Final, Complete Sharron Cartwright Oct 13, 2018 12:57
[2018-10-13] MEDS: **hydrALAZINE HCL** 25 MG TAB PO SCH ×2 (13:03→21:50)
[2018-10-13 20:00] VITALS: BP 118/58
[2018-10-13] MEDS: ATORVASTATIN 10 MG TAB PO SCH (21:49)
--- NOTE | 2018-10-13 22:15 | IPNPDOC ---
PM&R Progress Note DATE OF SERVICE: Oct 12, 2018 [employer] Progress Note Subjective: Patient had episode of dizziness in gym and found to have hypoglycemia corrected with juice and food. REVIEW OF SYSTEMS: The following is a completed review of systems and has been reviewed. Review of systems otherwise unremarkable. PAIN: Patient self reports right hip pain EYES: Negative for recent vision changes EARS, NOSE, & THROAT:no dysphagia or rhinorrhea CARDIOVASCULAR: +Afib, denies chest pain PULMONARY: Negative. Denies shortness of breath. GASTROINTESTINAL: Negative for constipation or diarrhea GENITOURINARY:+retention MUSCULOSKELETAL: right hip fracture NEUROLOGICAL: no tremor, no focal weakness, +diabetic neuropathy HEMATOLOGICAL:no ecchymosis SKIN: right hip incision PSYCHIATRIC: Unremarkable All other review of systems found to be negative. PHYSICAL EXAMINATION: VITAL SIGNS: Please see below. GENERAL: Pleasant and cooperative. No acute distress. HEENT: PERRL. Extraocular movements intact. Clear conjunctiva CARDIOVASCULAR: Irregular rate and rhythm. No murmurs, rubs, or gallops LUNGS: Clear to auscultation bilaterally. No wheezes. No rhonchi ABDOMEN: Soft, nontender, mildly distended. Positive bowel sounds. Normal active bowel sounds NEUROLOGICAL: Alert and oriented times three. Cranial nerves II through XII grossly intact. Sensation diminished in stocking pattern lower extremities EXTREMITIES: 5\5 strength bilateral upper extremities. 5-\5 strength ankle DF and EHL did not test right hip flexors or knee extensors due to pain 5-/5 strength in left lower extremity. SKIN: right hp inicions c/d/i, no surrounding induration or erythema +bilateral edema ASSESSMENT:67-year-old M with past medical history of CAD sp stent, Afib, DM who presents status post fall with right hip fracture. PLAN: 1. Rehab: OT, OT assess for DME, able to ambulate a few feet with RW, will work on Mod-I bed to commode transfers 2. Ortho: s.p right hip ORIF, ortho consulted, WBAT 2. Neuro: pmh CVA/TIA, continue secondary stroke prevention measures- statin, ASA, and BP management 3. CArdio: pmh Afib on amiodarone and low dose Eliquis, chronic diastolic HF and HTN, continue home meds and monitor - medicine consulted 4. Endo: pmh DM, continue insulin therapy, will order nutrition consult per patient request to assist with weight loss- patent with hypoglycemic epsamanda rodriguez, will d/c am Detemir and monitor 6. 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 DVT ppx: on eliquis, TEDs 6. Pain: Tylenol and [place] prn, ICE TID 7. Psych: depression, continue Wellbutrin and Lexapro 8. resp: Incentive spirometry, monitor for cough-stable 9. Skin: bilateral LE edema, will give short trial of Lasix, alyson wrap and elevate legs while in bed 9. Dispo: 10/25/18 to home, progressing toward goals Allergies Coded Allergies: Latex (Verified Allergy, Unknown, Hives, 09/28/18) had reaction to rubber gloves-hives Penicillins (Verified Allergy, Unknown, 01/07/14) Vital Signs Vital Signs Date Time Temp Pulse Resp B/P (MAP) Pulse Ox O2 Delivery O2 Flow Rate FiO2 10/13/18 21:50 118/58 10/13/18 18:09 19 10/13/18 14:00 96.9 51 95 10/13/18 06:00 Room Air Laboratory Data Labs 24H Laboratory Tests 2 10/13/18 06:27: Bedside Glucose (Misc Panel) 146H 10/13/18 12:51: Bedside Glucose (Misc Panel) 130H 10/13/18 17:10: Bedside Glucose (Misc Panel) 212H 10/13/18 20:34: Bedside Glucose (Misc Panel) 203H Microbiology Microbiology 10/08/18 Urine Culture - Final, Complete Current Medications Current Medications Current Medications Acetaminophen (Tylenol Tab) 650 mg Q4HP PRN PO fever/MILD PAIN (PS 1-4); Start 10/06/18 at 16:30 Acetaminophen/ Hydrocodone Bitart ([place], Anexsia 5/325) 1 tab Q4HP PRN PO MODERATE PAIN (PS 5-7) Last administered on 10/11/18at 21:51; Start 10/06/18 at 16:30 Acetaminophen/ Hydrocodone Bitart ([place], Anexsia 5/325) 2 tab Q4HP PRN PO SEVERE PAIN (PS 8-10) Last administered on 10/13/18at 17:23; Start 10/06/18 at 16:30 Amiodarone HCl (Pacerone, Cordarone) 200 mg DAILY PO Last administered on 10/13/18 08:16; Start 10/07/18 at 09:00 Apixaban (Eliquis) 2.5 mg BID PO Last administered on 10/13/18 21:49; Start 10/06/18 at 21:00 Ascorbic Acid (Vitamin C) 500 mg DAILY PO Last administered on 10/13/18at 08:16; Start 10/07/18 at 09:00 Atorvastatin Calcium (Lipitor) 10 mg QHS PO Last administered on 10/13/18 21:49; Start 10/06/18 at 21:00 Bisacodyl (Dulcolax Suppository) 10 mg DAILYPRN PRN ID CONSTIPATION; Start 10/06/18 at 16:30 Bupropion HCl (Wellbutrin Sr) 100 mg DAILY PO Last administered on 10/13/18at 08:15; Start 10/07/18 at 09:00 Dextrose (Dextrose 50%) 25 ml ASDIRECTED PRN IV SEE LABEL COMMENTS; Start 10/06/18 at 16:45 Escitalopram Oxalate (Lexapro) 20 mg DAILY PO Last administered on 10/13/18at 08:16; Start 10/07/18 at 09:00 Famotidine (Pepcid) 20 mg DAILY PO Last administered on 10/13/18 08:15; Start 10/07/18 at 09:00 Ferrous Gluconate (Fergon) 324 mg DAILY PO Last administered on 10/13/18at 08:15; Start 10/07/18 at 09:00 Furosemide (Lasix) 20 mg DAILY PO Last administered on 10/13/18at 08:16; Start 10/11/18 at 09:00; Stop 10/17/18 at 09:01 Glucagon (Glucagon) 1 mg ASDIRECTED PRN SC SEE LABEL COMMENTS; Start 10/06/18 at 16:45 Glucose (Glucose) 16 GM ASDIRECTED PRN PO SEE LABEL COMMENTS; Start 10/06/18 at 16:45 Home Med (Med Rec Complete!) ASDIRECTED XX ; Start 10/06/18 at 17:30; Stop 10/06/18 at 17:30; Status DC Hydralazine HCl (Apresoline) 12.5 mg Q8H PO Last administered on 10/13/18at 13:03; Start 10/13/18 at 14:00 Insulin Detemir (Levemir Insulin) 45 units DAILY SC Last administered on 10/12/18at 09:07; Start 10/07/18 at 09:00; Stop 10/12/18 at 16:18; Status DC Insulin Human Lispro (HumaLOG INSULIN) SEE PROTOCOL TABLE AC SC Last administered on 10/13/18at 17:23; Start 10/06/18 at 17:30 Insulin Human Lispro (HumaLOG INSULIN) See Protocol Table QHS SC ; Start 10/06/18 at 21:00 Lactulose (Cephulac) 30 ml DAILY PO Last administered on 10/13/18at 08:15; Start 10/07/18 at 09:00 Magnesium Hydroxide (Milk Of Magnesia) 30 ml DAILYPRN PRN PO CONSTIPATION; Start 10/06/18 at 16:30 Metoprolol Succinate (TopROL XL) 100 mg DAILY PO Last administered on 10/13/18at 08:16; Start 10/07/18 at 09:00 Miscellaneous (Unresolved Clarification Entry) SEE LABEL COMMENTS DAILY XX ; Start 10/12/18 at 09:00; Stop 10/13/18 at 07:15; Status DC Miscellaneous (Unresolved Clarification Entry) SEE LABEL COMMENTS DAILY XX ; Start 10/13/18 at 09:00; Stop 10/13/18 at 09:35; Status DC Miscellaneous (Unresolved Clarification Entry) SEE LABEL COMMENTS DAILY XX ; Start 10/14/18 at 09:00; Stop 10/14/18 at 09:00; Status DC Pregabalin (Lyrica) 150 mg BID PO Last administered on 10/13/18at 21:49; Start 10/06/18 at 21:00 Senna/Docusate Sodium (Senokot S) 1 tab BID PO Last administered on 10/12/18at 09:09; Start 10/06/18 at 21:00 Tamsulosin HCl (Flomax) 0.4 mg DAILY PO Last administered on 10/13/18at 08:15; Start 10/07/18 at 09:00 Vitamin D (Vitamin D) 1,000 units DAILY PO Last administered on 10/13/18at 08:16; Start 10/07/18 at 09:00 KARLA ULLOA MD Oct 13, 2018 22:15
[2018-10-14] MEDS: **hydrALAZINE HCL** 25 MG TAB PO SCH ×3 (05:13→21:45)
[2018-10-14 05:53] VITALS: BP 149/75
[2018-10-14 07:21] LABS: HEMOGLOBIN 9.7 g/dl (13.5-17.5); MEAN CORPUSCULAR HEMOGLOBIN 30.2 pg (27.0-33.0); MEAN CORPUSCULAR HGB CONC 31.3 g/dl (32.0-36.5); MEAN CORPUSCULAR VOLUME 96.6 fl (80.0-96.0); PLATELET COUNT, AUTOMATED 224 10^3/uL (150-450); RED BLOOD COUNT 3.21 10^6/uL (4.30-6.10); WHITE BLOOD COUNT 5.7 10^3/uL (4.0-10.0)
[2018-10-14 07:46] LABS: CREATININE FOR GFR 1.74 MG/DL (0.70-1.30); GLOMERULAR FILTRATION RATE 41.6 (>49); POTASSIUM SERUM 5.1 MEQ/L (3.5-5.1)
[2018-10-14] MEDS: HumaLOG INSULIN (NovoLOG) PER UNIT SC SCH ×4 (07:52→20:41)
[2018-10-14] MEDS: NORCO, ANEXSIA 5/325MG TABLET (HYDROcodone/ACETAMINOPHEN) PO PRN ×3 (07:53→17:25)
[2018-10-14] MEDS: LACTULOSE 20 GM/30 ML SYRUP UD PO SCH (08:31)
[2018-10-14] MEDS: ASCORBIC ACID 500 MG TAB PO SCH (08:32)
[2018-10-14] MEDS: AMIODARONE 200 MG TAB (PACERONE) PO SCH (08:32)
[2018-10-14] MEDS: buPROPion (WELLBUTRIN SR) 100 MG SR TAB PO SCH (08:32)
[2018-10-14] MEDS: FAMOTIDINE 20 MG TAB PO SCH (08:32)
[2018-10-14] MEDS: APIXABAN 2.5 MG TAB (ELIQUIS) PO SCH ×2 (08:32→20:40)
[2018-10-14] MEDS: PREGABALIN 75 MG CAP(LYRICA) PO SCH ×2 (08:32→20:41)
[2018-10-14] MEDS: VITAMIN D 1,000 INTERNATIONAL UNITS TABLET PO SCH (08:32)
[2018-10-14] MEDS: TAMSULOSIN 0.4 MG CAP PO SCH (08:32)
[2018-10-14] MEDS: SENOKOT S TAB PO SCH ×2 (08:32→20:41)
[2018-10-14] MEDS: FERROUS GLUCONATE 324 MG TAB PO SCH (08:32)
[2018-10-14] MEDS: FUROSEMIDE 20 MG TAB PO SCH (08:33)
[2018-10-14] MEDS: ESCITALOPRAM OXALATE 10 MG TAB (LEXAPRO) PO SCH (08:33)
[2018-10-14] MEDS: METOPROLOL SUCC (TopROL XL) 100MG *XL* TAB PO SCH (08:33)
--- NOTE | 2018-10-14 13:07 | IPNPDOC ---
Date Seen The patient was seen on 10/14/18. Progress Note HPI: Mr. Mills is a 67-year-old who reported being in his usual state of health until the evening of admission when he was visiting his daughter at her place of employment when he slipped and fell on his right hip to the ground. He subsequently felt pain and was unable to raise off the ground. Activated EMS and presented to the emergency room. Imaging revealing right intertrochanteric femoral fracture. Orthopedics was consulted. S/P right hip trochanteric fixation nailing (TFN) for intertrochanteric hip fracture. Pt was transferred to ARU, Dr Albarran, 10/06/18. Pt is OOB to wheelchair. The pt states LE edema continue to decrease. Pt states he is eating and drinking well. Denies any fevers, chills, weakness, fatigue, Headache, Chest Pain, Shortness of breath, cough, palpitations, abdominal pain, N/V/D or changes in bowel or bladder habits. PMHx: DM HTN HLD CAD GERD CHF TTE 09/28/18 EF 65%, DD. PSHX: Cholecystectomy. CAD with stent placement 2000. PE: GEN: 67yoM, appears stated age. No acute distress. Alert and oriented x 3. Pleasant, interactive. HEENT: Normocephalic, atraumatic. Sclera are nonicteric. Conjunctiva without injection. Nose midline. No facial asymmetry. Moist mucous membranes. CHEST: Regular rate and rhythm, +S1, +S2 LUNGS: Clear to auscultation bilaterally. No wheezes, rales, or rhonchi. ABD: Round, soft, non-tender, non-distended. +Bowel sounds throughout. No rebound or guarding. EXT: tr-1mm lower extremity edema appreciated B/L distal pretib areas. TEDS in place. SKIN: [place], dry, warm. No rashes. NEURO: Alert and oriented x 3. Cranial nerves III-XII are intact. No focal deficits appreciated. A&P: Mr. Mills is a 67-year-old who reported being in his usual state of health until the evening of admission when he was visiting his daughter at her place of employment when he slipped and fell on his right hip to the ground. He subsequently felt pain and was unable to raise off the ground. Activated EMS and presented to the emergency room. Imaging revealing right intertrochanteric femoral fracture. Orthopedics was consulted. S/P right hip trochanteric fixation nailing (TFN) for intertrochanteric hip fracture. Pt was transferred to ARU, Dr Albarran, 10/06/18. 1. Mechanical fall resulting in right intertrochanteric femur fracture/IM nail right hip on 09/30/2018. Management as per Orthopedics. PT/OT/ST as per ARU Pain control as per ARU Bowel care as per ARU Disposition as per ARU DVT px. Continue Eliquis 2.5mg by mouth twice daily for anticoagulation. 2. Acute on chronic kidney disease, stage III: Baseline 1.6-1.8 10/14/18 Creatinine 1.74. S/P IVF x 1 liter 10/08/18 Lasix 20 mg po daily added 10/11 x 7 days. Monitor I/O. Monitor daily wt 1800cc FR Monitor BMP. 3. Hematuria: Status post Hdez catheter. Follow-up urinalysis has normalized. Could consider outpatient follow-up with urology. 4. Iron deficiency Anemia Started iron supplement daily with vitamin C. Peripheral smear Normocytic anemia; patient is status-post hip surgery. No blasts identified. Minimal thrombocytopenia with normal platelet morphology. Folate 8.7. Vitamin B12 level WNL. No signs of bleeding. 10/14/18 Hgb 9.7. Monitor 5. Diabetes mellitus with hyperglycemia and neuropathy: CC diet. Pt readily admits he follows diet much differently while here. BS was noted to be 34 10/12/18 AM. Pt felt dizzy. Levemir on hold, no further hypoglycemia. BS 136 this AM. SSI. Lyrica. Monitor BS. 6. Recent diagnosis of atrial fibrillation. Continue Eliquis, metoprolol, and amiodarone. 7. Depression: Continue Lexapro. 8. Gastroesophageal reflux disease: Continue famotidine and omeprazole. 9. Benign prostatic hyperplasia: Continue Flomax. 10. Coronary artery disease status-post cardiac stenting: Follows with Dr. Johnson. Status-post stenting in 2000. 11. HTN/HHD/LVH EF 65%/DD. S/P IVF 10/08/18 x 1 liter. Improved LE edema, Continue with Lasix 20 mg daily. Hydralazine 12.5 mg Q8 added for elevated BP this AM. Monitor BMP. 12. History of TIA/CVA: Residual left-sided weakness. Monitor. VS, I&O, 24H, Fishbone Vital Signs/I&O Vital Signs Date Time Temp Pulse Resp B/P (MAP) Pulse Ox O2 Delivery O2 Flow Rate FiO2 10/14/18 12:51 18 10/14/18 08:33 58 116/57 10/14/18 05:53 97.2 95 10/13/18 06:00 Room Air I&O- Last 24 Hours up to 6 AM 10/14/18 06:00 Intake Total 1570 ml Output Total 1350 ml Balance 220 ml Laboratory Data 24H LABS Laboratory Tests 2 10/13/18 17:10: Bedside Glucose (Misc Panel) 212H 10/13/18 20:34: Bedside Glucose (Misc Panel) 203H 10/14/18 07:03: Nucleated Red Blood Cells % (auto) 0.0, Anion Gap 3L, Glomerular Filtration Rate 41.6L, Blood Urea Nitrogen 48H, Creatinine 1.74H, Sodium Level 140, Potassium Level 5.1#, Chloride Level 106, Carbon Dioxide Level 31, Calcium Level 8.0L 10/14/18 07:10: Bedside Glucose (Misc Panel) 136H 10/14/18 12:19: Bedside Glucose (Misc Panel) 174H CBC/BMP Laboratory Tests 10/14/18 07:03 Red Blood Count 3.21 L, Mean Corpuscular Volume 96.6 H, Mean Corpuscular Hemoglobin 30.2, Mean Corpuscular Hemoglobin Concent 31.3 L, Red Cell Distribution Width 13.3, Calcium Level 8.0 L Microbiology Microbiology 10/08/18 Urine Culture - Final, Complete Sharron Cartwright Oct 14, 2018 13:07
[2018-10-14] MEDS ORDERED: PILL CRUSHER/CUTTER 1 EACH XX PRN (14:15)
[2018-10-14] MEDS: ATORVASTATIN 10 MG TAB PO SCH (20:41)
[2018-10-14 21:57] VITALS: BP 158/77
[2018-10-15] MEDS: **hydrALAZINE HCL** 25 MG TAB PO SCH ×3 (05:06→21:50)
[2018-10-15] MEDS: NORCO, ANEXSIA 5/325MG TABLET (HYDROcodone/ACETAMINOPHEN) PO PRN ×3 (05:20→19:28)
[2018-10-15 06:04] VITALS: BP 151/84
[2018-10-15 06:34] LABS: HEMOGLOBIN 9.7 g/dl (13.5-17.5); MEAN CORPUSCULAR HEMOGLOBIN 30.2 pg (27.0-33.0); MEAN CORPUSCULAR HGB CONC 31.3 g/dl (32.0-36.5); MEAN CORPUSCULAR VOLUME 96.6 fl (80.0-96.0); PLATELET COUNT, AUTOMATED 219 10^3/uL (150-450); RED BLOOD COUNT 3.21 10^6/uL (4.30-6.10); WHITE BLOOD COUNT 5.4 10^3/uL (4.0-10.0)
[2018-10-15 07:01] LABS: CALCIUM LEVEL 7.9 MG/DL (8.8-10.2); CREATININE FOR GFR 1.72 MG/DL (0.70-1.30); GLOMERULAR FILTRATION RATE 42.2 (>49); POTASSIUM SERUM 4.9 MEQ/L (3.5-5.1)
[2018-10-15] MEDS: SENOKOT S TAB PO SCH ×2 (09:00→19:05)
[2018-10-15] MEDS: LACTULOSE 20 GM/30 ML SYRUP UD PO SCH (09:00)
[2018-10-15] MEDS: TAMSULOSIN 0.4 MG CAP PO SCH (09:00)
[2018-10-15] MEDS: FERROUS GLUCONATE 324 MG TAB PO SCH (09:01)
[2018-10-15] MEDS: AMIODARONE 200 MG TAB (PACERONE) PO SCH (09:01)
[2018-10-15] MEDS: buPROPion (WELLBUTRIN SR) 100 MG SR TAB PO SCH (09:01)
[2018-10-15] MEDS: VITAMIN D 1,000 INTERNATIONAL UNITS TABLET PO SCH (09:01)
[2018-10-15] MEDS: ASCORBIC ACID 500 MG TAB PO SCH (09:01)
[2018-10-15] MEDS: FUROSEMIDE 20 MG TAB PO SCH (09:02)
[2018-10-15] MEDS: ESCITALOPRAM OXALATE 10 MG TAB (LEXAPRO) PO SCH (09:02)
[2018-10-15] MEDS: APIXABAN 2.5 MG TAB (ELIQUIS) PO SCH ×2 (09:02→21:50)
[2018-10-15] MEDS: PREGABALIN 75 MG CAP(LYRICA) PO SCH ×2 (09:03→21:50)
[2018-10-15] MEDS: METOPROLOL SUCC (TopROL XL) 100MG *XL* TAB PO SCH (09:06)
[2018-10-15] MEDS: FAMOTIDINE 20 MG TAB PO SCH (09:10)
[2018-10-15] MEDS: HumaLOG INSULIN (NovoLOG) PER UNIT SC SCH ×4 (09:12→21:00)
--- NOTE | 2018-10-15 12:24 | IPNPDOC ---
Date Seen The patient was seen on 10/15/18. Progress Note HPI: Mr. Mills is a 67-year-old who reported being in his usual state of health until the evening of admission when he was visiting his daughter at her place of employment when he slipped and fell on his right hip to the ground. He subsequently felt pain and was unable to raise off the ground. Activated EMS and presented to the emergency room. Imaging revealing right intertrochanteric femoral fracture. Orthopedics was consulted. S/P right hip trochanteric fixation nailing (TFN) for intertrochanteric hip fracture. Pt was transferred to ARU, Dr Albarran, 10/06/18. Pt is OOB to wheelchair. The pt states LE edema continues to decrease. Pt states he is eating and drinking well. Denies any fevers, chills, weakness, fatigue, Headache, Chest Pain, Shortness of breath, cough, palpitations, abdominal pain, N/V/D or changes in bowel or bladder habits. PMHx: DM HTN HLD CAD GERD CHF TTE 09/28/18 EF 65%, DD. PSHX: Cholecystectomy. CAD with stent placement 2000. PE: GEN: 67yoM, appears stated age. No acute distress. Alert and oriented x 3. Pleasant, interactive. HEENT: Normocephalic, atraumatic. Sclera are nonicteric. Conjunctiva without injection. Moist mucous membranes. CHEST: Regular rate and rhythm, +S1, +S2 LUNGS: Clear to auscultation bilaterally. No wheezes, rales, or rhonchi. ABD: Round, soft, non-tender, non-distended. +Bowel sounds throughout. No rebound or guarding. EXT: tr-1mm lower extremity edema appreciated B/L distal pretib areas. TEDS in place. SKIN: [place], dry, warm. No rashes. NEURO: Alert and oriented x 3. Cranial nerves III-XII are intact. No focal deficits appreciated. A&P: Mr. Mills is a 67-year-old who reported being in his usual state of health until the evening of admission when he was visiting his daughter at her place of employment when he slipped and fell on his right hip to the ground. He subsequently felt pain and was unable to raise off the ground. Activated EMS and presented to the emergency room. Imaging revealing right intertrochanteric femoral fracture. Orthopedics was consulted. S/P right hip trochanteric fi xation nailing (TFN) for intertrochanteric hip fracture. Pt was transferred to ARU, Dr Albarran, 10/06/18. 1. Mechanical fall resulting in right intertrochanteric femur fracture/IM nail right hip on 09/30/2018. Management as per Orthopedics. PT/OT/ST as per ARU Pain control as per ARU Bowel care as per ARU Disposition as per ARU DVT px. Continue Eliquis 2.5mg by mouth twice daily for anticoagulation. 2. Acute on chronic kidney disease, stage III: Baseline 1.6-1.8 10/15/18 Creatinine 1.72. S/P IVF x 1 liter 10/08/18 Lasix 20 mg po daily added 10/11 x 7 days. Monitor I/O. Monitor daily wt 1800cc FR Monitor BMP. 3. Hematuria: Status post Hdez catheter. Follow-up urinalysis has normalized. Could consider outpatient follow-up with urology. 4. Iron deficiency Anemia Started iron supplement daily with vitamin C. Peripheral smear Normocytic anemia; patient is status-post hip surgery. No blasts identified. Minimal thrombocytopenia with normal platelet morphology. Folate 8.7. Vitamin B12 level WNL. No signs of bleeding. Hgb 9.7, stable. Monitor 5. Diabetes mellitus with hyperglycemia and neuropathy: CC diet. Pt readily admits he follows diet much differently while here. BS was noted to be 34 10/12/18 AM. Pt felt dizzy. Levemir on hold, no further hypoglycemia. BS 186 this AM. BS have trended up the past couple of days and using 8-10 units of coverage per day. Will add back Levemir 5 u HS, continue t monitor. SSI. Lyrica. Monitor BS. 6. Recent diagnosis of atrial fibrillation. Continue Eliquis, metoprolol, and amiodarone. 7. Depression: Continue Lexapro. 8. Gastroesophageal reflux disease: Continue famotidine and omeprazole. 9. Benign prostatic hyperplasia: Continue Flomax. 10. Coronary artery disease status-post cardiac stenting: Follows with Dr. Johnson. Status-post stenting in 2000. 11. HTN/HHD/LVH EF 65%/DD. S/P IVF 10/08/18 x 1 liter. Improved LE edema, Continue with Lasix 20 mg daily. Hydralazine 12.5 mg Q8 added for elevated BP. SCr at baseline. Monitor BMP. 12. History of TIA/CVA: Residual left-sided weakness. Monitor. VS, I&O, 24H, Fishbone Vital Signs/I&O Vital Signs Date Time Temp Pulse Resp B/P (MAP) Pulse Ox O2 Delivery O2 Flow Rate FiO2 10/15/18 11:49 20 10/15/18 09:06 62 151/84 10/15/18 06:04 98.8 94 10/13/18 06:00 Room Air I&O- Last 24 Hours up to 6 AM 10/15/18 06:00 Intake Total 1000 ml Output Total 400 ml Balance 600 ml Laboratory Data 24H LABS Laboratory Tests 2 10/14/18 12:19: Bedside Glucose (Misc Panel) 174H 10/14/18 16:59: Bedside Glucose (Misc Panel) 163H 10/14/18 19:45: Bedside Glucose (Misc Panel) 160H 10/15/18 05:15: Bedside Glucose (Misc Panel) 175H 10/15/18 06:15: Nucleated Red Blood Cells % (auto) 0.0, Anion Gap 5L, Glomerular Filtration Rate 42.2L, Blood Urea Nitrogen 52H, Creatinine 1.72H, Sodium Level 140, Potassium Level 4.9, Chloride Level 106, Carbon Dioxide Level 29, Calcium Level 7.9L 10/15/18 11:34: Bedside Glucose (Misc Panel) 196H CBC/BMP Laboratory Tests 10/15/18 06:15 Red Blood Count 3.21 L, Mean Corpuscular Volume 96.6 H, Mean Corpuscular Hemoglobin 30.2, Mean Corpuscular Hemoglobin Concent 31.3 L, Red Cell Distribution Width 13.2, Calcium Level 7.9 L Microbiology Microbiology 10/08/18 Urine Culture - Final, Complete Sharron Cartwright Oct 15, 2018 12:24
[2018-10-15 14:00] VITALS: BP 117/55
--- NOTE | 2018-10-15 14:41 | IPNPDOC ---
PM&R Progress Note DATE OF SERVICE: Oct 15, 2018 Legal Coordinator Progress Note Subjective: Patient feeling well today, walking comfortably, reports he wishes he had more social interaction. REVIEW OF SYSTEMS: The following is a completed review of systems and has been reviewed. Review of systems otherwise unremarkable. PAIN: Patient self reports right hip pain EYES: Negative for recent vision changes EARS, NOSE, & THROAT:no dysphagia or rhinorrhea CARDIOVASCULAR: +Afib, denies chest pain PULMONARY: Negative. Denies shortness of breath. GASTROINTESTINAL: Negative for constipation or diarrhea GENITOURINARY:+retention MUSCULOSKELETAL: right hip fracture NEUROLOGICAL: no tremor, no focal weakness, +diabetic neuropathy HEMATOLOGICAL:no ecchymosis SKIN: right hip incision PSYCHIATRIC: Unremarkable All other review of systems found to be negative. PHYSICAL EXAMINATION: VITAL SIGNS: Please see below. GENERAL: Pleasant and cooperative. No acute distress. HEENT: PERRL. Extraocular movements intact. Clear conjunctiva CARDIOVASCULAR: Irregular rate and rhythm. No murmurs, rubs, or gallops LUNGS: Clear to auscultation bilaterally. No wheezes. No rhonchi ABDOMEN: Soft, nontender, mildly distended. Positive bowel sounds. Normal active bowel sounds NEUROLOGICAL: Alert and oriented times three. Cranial nerves II through XII grossly intact. Sensation diminished in stocking pattern lower extremities EXTREMITIES: 5\5 strength bilateral upper extremities. 5-\5 strength ankle DF and EHL did not test right hip flexors or knee extensors due to pain 5-/5 strength in left lower extremity. SKIN: right hp inicions c/d/i, no surrounding induration or erythema +bilateral edema-improving ASSESSMENT:67-year-old M with past medical history of CAD sp stent, Afib, DM who presents status post fall with right hip fracture. PLAN: 1. Rehab: OT, OT assess for DME, able to ambulate 45FT RW, will work on Mod-I bed to commode transfers, will start to focus on stairs- will have ELECTRICAL HELPER assessment on Thursday for cognition 2. Ortho: s.p right hip ORIF, ortho consulted, WBAT 2. Neuro: pmh CVA/TIA, continue secondary stroke prevention measures- statin, ASA, and BP management 3. CArdio: pmh Afib on amiodarone and low dose Eliquis, chronic diastolic HF and HTN, continue home meds and monitor - medicine consulted 4. Endo: pmh DM, continue insulin therapy, will order nutrition consult per patient request to assist with weight loss- 5units long-acting qHS and continue premeal SS 6. 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 DVT ppx: on eliquis, TEDs 6. Pain: Tylenol and [place] prn, ICE TID 7. Psych: depression, continue Wellbutrin and Lexapro 8. resp: Incentive spirometry, monitor for cough-stable 9. Skin: bilateral LE edema, finishing up short trial of Lasix, alyson wrap and elevate legs while in bed-imporiving 9. Dispo: 10/28/18 to home, progressing toward goals, will need to climb 14-16 stairs prior to discharge Allergies Coded Allergies: Latex (Verified Allergy, Unknown, Hives, 09/28/18) had reaction to rubber gloves-hives Penicillins (Verified Allergy, Unknown, 01/07/14) Vital Signs Vital Signs Date Time Temp Pulse Resp B/P (MAP) Pulse Ox O2 Delivery O2 Flow Rate FiO2 10/15/18 12:22 20 10/15/18 09:06 62 151/84 10/15/18 06:04 98.8 94 10/13/18 06:00 Room Air Laboratory Data CBC/BMP Laboratory Tests 10/15/18 06:15 Red Blood Count 3.21 L, Mean Corpuscular Volume 96.6 H, Mean Corpuscular Hemoglobin 30.2, Mean Corpuscular Hemoglobin Concent 31.3 L, Red Cell Distribution Width 13.2, Calcium Level 7.9 L Labs 24H Laboratory Tests 2 10/14/18 16:59: Bedside Glucose (Misc Panel) 163H 10/14/18 19:45: Bedside Glucose (Misc Panel) 160H 10/15/18 05:15: Bedside Glucose (Misc Panel) 175H 10/15/18 06:15: Nucleated Red Blood Cells % (auto) 0.0, Anion Gap 5L, Glomerular Filtration Rate 42.2L, Blood Urea Nitrogen 52H, Creatinine 1.72H, Sodium Level 140, Potassium Level 4.9, Chloride Level 106, Carbon Dioxide Level 29, Calcium Level 7.9L 10/15/18 11:34: Bedside Glucose (Misc Panel) 196H Microbiology Microbiology 10/08/18 Urine Culture - Final, Complete Current Medications Current Medications Current Medications Acetaminophen (Tylenol Tab) 650 mg Q4HP PRN PO fever/MILD PAIN (PS 1-4); Start 10/06/18 at 16:30 Acetaminophen/ Hydrocodone Bitart ([place], [place] 5/325) 1 tab Q4HP PRN PO MODERATE PAIN (PS 5-7) Last administered on 10/11/18at 21:51; Start 10/06/18 at 16:30 Acetaminophen/ Hydrocodone Bitart ([place], [place]nexsia 5/325) 2 tab Q4HP PRN PO SEVERE PAIN (PS 8-10) Last administered on 10/15/18 11:49; Start 10/06/18 at 16:30 Amiodarone HCl ([place], Cordarone) 200 mg DAILY PO Last administered on 10/15/18 09:01; Start 10/07/18 at 09:00 Apixaban (Eliquis) 2.5 mg BID PO Last administered on 10/15/18 09:02; Start 10/06/18 at 21:00 Ascorbic Acid (Vitamin C) 500 mg DAILY PO Last administered on 10/15/18 09:01; Start 10/07/18 at 09:00 Atorvastatin Calcium (Lipitor) 10 mg QHS PO Last administered on 10/14/18at 20:41; Start 10/06/18 at 21:00 Bisacodyl (Dulcolax Suppository) 10 mg DAILYPRN PRN ID CONSTIPATION; Start 10/06/18 at 16:30 Bupropion HCl (Wellbutrin Sr) 100 mg DAILY PO Last administered on 10/15/18 09:01; Start 10/07/18 at 09:00 Dextrose (Dextrose 50%) 25 ml ASDIRECTED PRN IV SEE LABEL COMMENTS; Start 10/06/18 at 16:45 Escitalopram Oxalate (Lexapro) 20 mg DAILY PO Last administered on 10/15/18 09:02; Start 10/07/18 at 09:00 Famotidine (Pepcid) 20 mg DAILY PO Last administered on 10/15/18 09:10; Start 10/07/18 at 09:00 Ferrous Gluconate (Fergon) 324 mg DAILY PO Last administered on 10/15/18at 09:01; Start 10/07/18 at 09:00 Furosemide (Lasix) 20 mg DAILY PO Last administered on 10/15/18at 09:02; Start 10/11/18 at 09:00; Stop 10/17/18 at 09:01 Glucagon (Glucagon) 1 mg ASDIRECTED PRN SC SEE LABEL COMMENTS; Start 10/06/18 at 16:45 Glucose (Glucose) 16 GM ASDIRECTED PRN PO SEE LABEL COMMENTS; Start 10/06/18 at 16:45 Home Med (Med Rec Complete!) ASDIRECTED XX ; Start 10/06/18 at 17:30; Stop 10/06/18 at 17:30; Status DC Hydralazine HCl (Apresoline) 12.5 mg Q8H PO Last administered on 10/15/18at 05:06; Start 10/13/18 at 14:00 Insulin Detemir (Levemir Insulin) 5 units QHS SC ; Start 10/15/18 at 21:00 Insulin Detemir (Levemir Insulin) 45 units DAILY SC Last administered on 10/12/18at 09:07; Start 10/07/18 at 09:00; Stop 10/12/18 at 16:18; Status DC Insulin Human Lispro (HumaLOG INSULIN) SEE PROTOCOL TABLE AC SC Last administered on 10/15/18at 11:52; Start 10/06/18 at 17:30 Insulin Human Lispro (HumaLOG INSULIN) See Protocol Table QHS SC ; Start 10/06/18 at 21:00 Lactulose (Cephulac) 30 ml DAILY PO Last administered on 10/13/18at 08:15; Start 10/07/18 at 09:00 Magnesium Hydroxide (Milk Of Magnesia) 30 ml DAILYPRN PRN PO CONSTIPATION; Start 10/06/18 at 16:30 Metoprolol Succinate (TopROL XL) 100 mg DAILY PO Last administered on 10/15/18at 09:06; Start 10/07/18 at 09:00 Miscellaneous (Unresolved Clarification Entry) SEE LABEL COMMENTS DAILY XX ; Start 10/12/18 at 09:00; Stop 10/13/18 at 07:15; Status DC Miscellaneous (Unresolved Clarification Entry) SEE LABEL COMMENTS DAILY XX ; Start 10/13/18 at 09:00; Stop 10/13/18 at 09:35; Status DC Miscellaneous (Unresolved Clarification Entry) SEE LABEL COMMENTS DAILY XX ; Start 10/14/18 at 09:00; Stop 10/14/18 at 09:00; Status DC Pregabalin (Lyrica) 150 mg BID PO Last administered on 10/15/18 09:03; Start 10/06/18 at 21:00 Senna/Docusate Sodium (Senokot S) 1 tab BID PO Last administered on 10/12/18at 09:09; Start 10/06/18 at 21:00 Tamsulosin HCl (Flomax) 0.4 mg DAILY PO Last administered on 10/15/18 09:00; Start 10/07/18 at 09:00 Vitamin D (Vitamin D) 1,000 units DAILY PO Last administered on 10/15/18at 09:01; Start 10/07/18 at 09:00 KARLA ULLOA MD Oct 15, 2018 14:41
[2018-10-15 20:00] VITALS: BP 136/63
[2018-10-15] MEDS: LEVEMIR (INSULIN DETEMIR) 1 UNITS/0.01ML SC SCH (21:49)
[2018-10-15] MEDS: ATORVASTATIN 10 MG TAB PO SCH (21:50)
[2018-10-16 06:28] VITALS: BP 191/89
[2018-10-16] MEDS: **hydrALAZINE HCL** 25 MG TAB PO SCH ×3 (06:32→21:57)
[2018-10-16] MEDS: NORCO, ANEXSIA 5/325MG TABLET (HYDROcodone/ACETAMINOPHEN) PO PRN ×3 (06:35→19:59)
[2018-10-16] MEDS: SENOKOT S TAB PO SCH ×2 (09:00→21:00)
[2018-10-16] MEDS: LACTULOSE 20 GM/30 ML SYRUP UD PO SCH (09:00)
[2018-10-16] MEDS: VITAMIN D 1,000 INTERNATIONAL UNITS TABLET PO SCH (09:33)
[2018-10-16] MEDS: HumaLOG INSULIN (NovoLOG) PER UNIT SC SCH ×4 (09:33→21:00)
[2018-10-16] MEDS: ESCITALOPRAM OXALATE 10 MG TAB (LEXAPRO) PO SCH (09:33)
[2018-10-16] MEDS: FERROUS GLUCONATE 324 MG TAB PO SCH (09:33)
[2018-10-16] MEDS: FAMOTIDINE 20 MG TAB PO SCH (09:33)
[2018-10-16] MEDS: TAMSULOSIN 0.4 MG CAP PO SCH (09:33)
[2018-10-16] MEDS: ASCORBIC ACID 500 MG TAB PO SCH (09:33)
[2018-10-16] MEDS: PREGABALIN 75 MG CAP(LYRICA) PO SCH ×2 (09:33→21:57)
[2018-10-16] MEDS: APIXABAN 2.5 MG TAB (ELIQUIS) PO SCH ×2 (09:33→21:57)
[2018-10-16] MEDS: AMIODARONE 200 MG TAB (PACERONE) PO SCH (09:34)
[2018-10-16] MEDS: FUROSEMIDE 20 MG TAB PO SCH (09:34)
[2018-10-16] MEDS: METOPROLOL SUCC (TopROL XL) 100MG *XL* TAB PO SCH (09:34)
[2018-10-16] MEDS: buPROPion (WELLBUTRIN SR) 100 MG SR TAB PO SCH (09:34)
--- NOTE | 2018-10-16 11:21 | IPNPDOC ---
Text Note Date of Service The patient was seen on 10/16/18. NOTE Subjective: Patient is a 7-year-old male with a PMHx of A. fib (on Eliquis), CAD s/p stent, Hx of TIA, IDDM2, CKD3, BPH, Depression, Chronic pain and GERD who presents to the ER after he fell on his Right hip. In the ER he was found to viramontes ve a right intertrochanteric femoral fracture. He was admitted to the hospitalist service with orthopedic surgery on consult. He received a right hip trochanteric fixation nailing (TFN) for intertrochanteric hip fracture. Patient was transferred to the service of JUSTYN Fenton on 10/06/18. Patient was seen and examined at the bedside. Patient denies any chest pain, as of breath or palpitations. Denies nausea, vomiting, abdominal pain, constipation, diarrhea or discomfort with urination. Objective: Vitals (See below) General: Lying in bed, no acute distress, comfortable, AAOx3 HEENT: NC, AT CVS: RRR, +S1S2 Lungs: Fair air entry b/l, auscultation without wheezing, rales or rhonchi Abdomen: Soft, nondistended, without tenderness Extremities: No evidence of lower extremity edema, - Calf tenderness, Assessment and plan: Mechanical fall with R Femur fracture - s/p correction on 09/30/2018 - Presented to the ER after patient had a mechanical fall and had severe right hip pain - s/p OR intervention with Dr. Broussard (09/30) and cardiac clearance for Dr. Mendez - Pain control, bowel regimen and physical therapy as per ARU Atrial fibrillation - c/w rate / rhythm control with metoprolol / amiodarone - c/w full anticoagulation with Eliquis CAD s/p stent (2000) - c/w Atorvastatin - Patient follows with cardiology, Dr. Johnson as an outpatient HTN / Diastolic CHF - no evidence of exacerbation - BP well controlled - ECHO 09/28: DD2, Preserved EF, - c/w Hydralazine, Furosemide, Metoprolol Hx of TIA with mild residual left-sided weakness - c/w Atorvastatin IDDM2 with hyperglycemia - c/w ISS and Levemir Neuropathy - c/w Pregabalin CKD3; s/p YULIANA - Cr baseline of ~1.8 - Creatinine appears to have improved Hematuria - likely 2/2 Hdez catheter - Urinalysis repeated does show improvement in the microhematuria Normocytic anemia - possibly 2/2 PABLO - Currently does not appear to be having any signs of bleeding - Hemoglobin remained stable - Will continue to monitor Depression - c/w Escitalopram BPH - c/w Tamsulosin Chronic pain - c/w Tramadol GERD - c/w Famotidine and Omeprazole DVT prophylaxis - c/w full anticoagulation with Eliquis VS,Fishbone, I+O VS, Fishbone, I+O Vital Signs Date Time Temp Pulse Resp B/P (MAP) Pulse Ox O2 Delivery O2 Flow Rate FiO2 10/16/18 09:34 60 191/86 10/16/18 07:05 20 10/16/18 06:28 96.7 94 10/13/18 06:00 Room Air I&O- Last 24 Hours up to 6 AM 10/16/18 05:59 Intake Total 1545 ml Output Total 625 ml Balance 920 ml ROZ ENRIQUEZ MD Oct 16, 2018 11:21
--- NOTE | 2018-10-16 11:26 | IPNPDOC ---
Text Note Date of Service The patient was seen on 10/16/18. NOTE Subjective: Patient is a 67-year-old male with a PMHx of A. fib (on Eliquis), CAD s/p stent, Hx of TIA, IDDM2, CKD3, BPH, Depression, Chronic pain and GERD who presents to the ER after he fell on his Right hip. In the ER he was found to h ave a right intertrochanteric femoral fracture. He was admitted to the hospitalist service with orthopedic surgery on consult. He received a right hip trochanteric fixation nailing (TFN) for intertrochanteric hip fracture. Patient was transferred to the service of JUSTYN Fenton on 10/06/18. Patient was seen and examined at the bedside. Patient denies any chest pain, as of breath or palpitations. Denies nausea, vomiting, abdominal pain, constipation, diarrhea or discomfort with urination. Objective: Vitals (See below) General: Lying in bed, no acute distress, comfortable, AAOx3 HEENT: NC, AT CVS: RRR, +S1S2 Lungs: Fair air entry b/l, auscultation without wheezing, rales or rhonchi Abdomen: Soft, nondistended, without tenderness Extremities: No evidence of lower extremity edema, - Calf tenderness, Assessment and plan: Mechanical fall with R Femur fracture - s/p correction on 09/30/2018 - Presented to the ER after patient had a mechanical fall and had severe right hip pain - s/p OR intervention with Dr. Broussard (09/30) and cardiac clearance for Dr. Mnedez - Pain control, bowel regimen and physical therapy as per ARU Atrial fibrillation - c/w rate / rhythm control with metoprolol / amiodarone - c/w full anticoagulation with Eliquis CAD s/p stent (2000) - c/w Atorvastatin - Patient follows with cardiology, Dr. Johnson as an outpatient HTN / Diastolic CHF - no evidence of exacerbation - BP well controlled - ECHO 09/28: DD2, Preserved EF, - c/w Hydralazine, Furosemide, Metoprolol Hx of TIA with mild residual left-sided weakness - c/w Atorvastatin IDDM2 with hyperglycemia - c/w ISS and Levemir Neuropathy - c/w Pregabalin CKD3; s/p YULIANA - Cr baseline of ~1.8 - Creatinine appears to have improved Hematuria - likely 2/2 Hdez catheter - Urinalysis repeated does show improvement in the microhematuria Normocytic anemia - possibly 2/2 PABLO - Currently does not appear to be having any signs of bleeding - Hemoglobin remained stable - Will continue to monitor Depression - c/w Escitalopram BPH - c/w Tamsulosin Chronic pain - c/w Tramadol GERD - c/w Famotidine and Omeprazole DVT prophylaxis - c/w full anticoagulation with Eliquis VS,Fishbone, I+O VS, Fishbone, I+O Vital Signs Date Time Temp Pulse Resp B/P (MAP) Pulse Ox O2 Delivery O2 Flow Rate FiO2 10/16/18 09:34 60 191/86 10/16/18 07:05 20 10/16/18 06:28 96.7 94 10/13/18 06:00 Room Air I&O- Last 24 Hours up to 6 AM 10/16/18 06:00 Intake Total 1545 ml Output Total 625 ml Balance 920 ml ROZ ENRIQUEZ MD Oct 16, 2018 11:26
[2018-10-16 14:00] VITALS: BP 130/58
[2018-10-16 21:54] VITALS: BP 154/66
[2018-10-16] MEDS: LEVEMIR (INSULIN DETEMIR) 1 UNITS/0.01ML SC SCH (21:57)
[2018-10-16] MEDS: ATORVASTATIN 10 MG TAB PO SCH (21:57)
[2018-10-17] MEDS: **hydrALAZINE HCL** 25 MG TAB PO SCH ×3 (06:49→22:12)
[2018-10-17 06:52] VITALS: BP 142/66
[2018-10-17] MEDS: HumaLOG INSULIN (NovoLOG) PER UNIT SC SCH ×4 (08:53→22:05)
[2018-10-17] MEDS: APIXABAN 2.5 MG TAB (ELIQUIS) PO SCH ×2 (08:53→22:11)
[2018-10-17] MEDS: PREGABALIN 75 MG CAP(LYRICA) PO SCH ×2 (08:53→22:11)
[2018-10-17] MEDS: VITAMIN D 1,000 INTERNATIONAL UNITS TABLET PO SCH (08:53)
[2018-10-17] MEDS: buPROPion (WELLBUTRIN SR) 100 MG SR TAB PO SCH (08:53)
[2018-10-17] MEDS: ESCITALOPRAM OXALATE 10 MG TAB (LEXAPRO) PO SCH (08:53)
[2018-10-17] MEDS: TAMSULOSIN 0.4 MG CAP PO SCH (08:54)
[2018-10-17] MEDS: NORCO, ANEXSIA 5/325MG TABLET (HYDROcodone/ACETAMINOPHEN) PO PRN ×3 (08:54→22:15)
[2018-10-17] MEDS: FUROSEMIDE 20 MG TAB PO SCH (08:54)
[2018-10-17] MEDS: FAMOTIDINE 20 MG TAB PO SCH (08:54)
[2018-10-17] MEDS: ASCORBIC ACID 500 MG TAB PO SCH (08:55)
[2018-10-17] MEDS: AMIODARONE 200 MG TAB (PACERONE) PO SCH (08:55)
[2018-10-17] MEDS: METOPROLOL SUCC (TopROL XL) 100MG *XL* TAB PO SCH (08:55)
[2018-10-17] MEDS: FERROUS GLUCONATE 324 MG TAB PO SCH (08:55)
[2018-10-17] MEDS: LACTULOSE 20 GM/30 ML SYRUP UD PO SCH (08:56)
[2018-10-17] MEDS: SENOKOT S TAB PO SCH ×2 (08:57→22:12)
--- NOTE | 2018-10-17 10:55 | IPNPDOC ---
Text Note Date of Service The patient was seen on 10/17/18. NOTE Subjective: Patient is a 7-year-old male with a PMHx of A. fib (on Eliquis), CAD s/p stent, Hx of TIA, IDDM2, CKD3, BPH, Depression, Chronic pain and GERD who presents to the ER after he fell on his Right hip. In the ER he was found to viramontes ve a right intertrochanteric femoral fracture. He was admitted to the hospitalist service with orthopedic surgery on consult. He received a right hip trochanteric fixation nailing (TFN) for intertrochanteric hip fracture. Patient was transferred to the service of JUSTYN Fenton on 10/06/18. Patient was seen and examined at the bedside, he was lying in bed. Denies any chest pain, shortness breath, palpitations. Denies any nausea, vomiting, abdominal pain, discomfort with urination, diarrhea or constipation. He was concerned about getting equipment in his home, so that he can transition outside of the hospital. Objective: Vitals (See below) General: Lying in bed, no acute distress, comfortable, AAOx3 HEENT: NC, AT CVS: RRR, +S1S2 Lungs: Fair air entry b/l, does not appear to be auscultated evidence of rhonchi, rales or wheezing Abdomen: Soft, nondistended, without tenderness Extremities: LE are without edema bilaterally, - Calf tenderness, Assessment and plan: Mechanical fall with R Femur fracture - s/p correction on 09/30/2018 - Presented to the ER after patient had a mechanical fall and had severe right hip pain - s/p OR intervention with Dr. Broussard (09/30) and cardiac clearance for Dr. Mendez - Pain control, bowel regimen and physical therapy as per ARU - Continues to work with physical therapy Atrial fibrillation - c/w rate / rhythm control with metoprolol / amiodarone - c/w full anticoagulation with Eliquis CAD s/p stent (2000) - c/w Atorvastatin - Patient follows with cardiology, Dr. Johnson as an outpatient HTN / Diastolic CHF - No evidence of exacerbation - BP well controlled - in low/mid 140s - ECHO 09/28: DD2, Preserved EF, - c/w Hydralazine, Furosemide, Metoprolol Hx of TIA with mild residual left-sided weakness - c/w Atorvastatin IDDM2 with hyperglycemia - c/w ISS and Levemir Neuropathy - c/w Pregabalin CKD3; s/p YULIANA - Cr baseline of ~1.8 - Creatinine appears to have improved Hematuria - likely 2/2 Hdez catheter - Urinalysis repeated does show improvement in the microhematuria Normocytic anemia - possibly 2/2 PABLO - Currently does not appear to be having any signs of bleeding - Hemoglobin remained stable - Will continue to monitor Depression - c/w Escitalopram BPH - c/w Tamsulosin Chronic pain - c/w Tramadol GERD - c/w Famotidine and Omeprazole DVT prophylaxis - c/w full anticoagulation with Eliquis VS,Fishbone, I+O VS, Fishbone, I+O Vital Signs Date Time Temp Pulse Resp B/P (MAP) Pulse Ox O2 Delivery O2 Flow Rate FiO2 10/17/18 09:24 20 10/17/18 08:55 54 142/66 10/17/18 06:52 98.0 94 10/13/18 06:00 Room Air I&O- Last 24 Hours up to 6 AM 10/17/18 06:00 Intake Total 1200 ml Output Total 350 ml Balance 850 ml ROZ ENRIQUEZ MD Oct 17, 2018 10:55
[2018-10-17 14:00] VITALS: BP 111/58
[2018-10-17 21:00] VITALS: BP 158/68
[2018-10-17] MEDS: LEVEMIR (INSULIN DETEMIR) 1 UNITS/0.01ML SC SCH (22:11)
[2018-10-17] MEDS: ATORVASTATIN 10 MG TAB PO SCH (22:12)
[2018-10-18 06:00] VITALS: BP 105/61
[2018-10-18] MEDS: **hydrALAZINE HCL** 25 MG TAB PO SCH ×3 (06:34→21:29)
[2018-10-18] MEDS: NORCO, ANEXSIA 5/325MG TABLET (HYDROcodone/ACETAMINOPHEN) PO PRN ×4 (07:17→21:30)
[2018-10-18] MEDS: HumaLOG INSULIN (NovoLOG) PER UNIT SC SCH ×4 (07:18→21:00)
[2018-10-18] MEDS: FAMOTIDINE 20 MG TAB PO SCH (08:02)
[2018-10-18] MEDS: VITAMIN D 1,000 INTERNATIONAL UNITS TABLET PO SCH (08:02)
[2018-10-18] MEDS: APIXABAN 2.5 MG TAB (ELIQUIS) PO SCH ×2 (08:02→21:30)
[2018-10-18] MEDS: ASCORBIC ACID 500 MG TAB PO SCH (08:02)
[2018-10-18] MEDS: FERROUS GLUCONATE 324 MG TAB PO SCH (08:02)
[2018-10-18] MEDS: LACTULOSE 20 GM/30 ML SYRUP UD PO SCH (08:02)
[2018-10-18] MEDS: PREGABALIN 75 MG CAP(LYRICA) PO SCH ×2 (08:03→21:29)
[2018-10-18] MEDS: TAMSULOSIN 0.4 MG CAP PO SCH (08:03)
[2018-10-18] MEDS: METOPROLOL SUCC (TopROL XL) 100MG *XL* TAB PO SCH (08:03)
[2018-10-18] MEDS: buPROPion (WELLBUTRIN SR) 100 MG SR TAB PO SCH (08:03)
[2018-10-18] MEDS: SENOKOT S TAB PO SCH ×2 (08:03→21:28)
[2018-10-18] MEDS: AMIODARONE 200 MG TAB (PACERONE) PO SCH (08:03)
[2018-10-18] MEDS: ESCITALOPRAM OXALATE 10 MG TAB (LEXAPRO) PO SCH (08:03)
--- NOTE | 2018-10-18 11:47 | IPNPDOC ---
Date Seen The patient was seen on 10/18/18. Progress Note HPI: Mr. Mills is a 67-year-old who reported being in his usual state of health until the evening of admission when he was visiting his daughter at her place of employment when he slipped and fell on his right hip to the ground. He subsequently felt pain and was unable to raise off the ground. Activated EMS and presented to the emergency room. Imaging revealing right intertrochanteric femoral fracture. Orthopedics was consulted. S/P right hip trochanteric fixation nailing (TFN) for intertrochanteric hip fracture. Pt was transferred to ARU, Dr Albarran, 10/06/18. Pt is OOB to wheelchair with PT. The pt states still has some LE edema. Has been spending most of the day with LEs dependent. At home usually elevates in recliner. Denies any fevers, chills, weakness, fatigue, Headache, Chest Pain, Shortness of breath, cough, palpitations, abdominal pain, N/V/D or changes in bowel or bladder habits. PMHx: DM HTN HLD CAD GERD CHF TTE 09/28/18 EF 65%, DD. PSHX: Cholecystectomy. CAD with stent placement 2000. PE: GEN: 67yoM, appears stated age. No acute distress. Alert and oriented x 3. Pleasant, interactive. HEENT: Normocephalic, atraumatic. Sclera are nonicteric. Conjunctiva without injection. Moist mucous membranes. CHEST: Regular rate and rhythm, +S1, +S2 LUNGS: Clear to auscultation bilaterally. No wheezes, rales, or rhonchi. ABD: Round, soft, non-tender, non-distended. +Bowel sounds throughout. No rebound or guarding. EXT: 1mm lower extremity edema appreciated B/L distal pretib areas/1-2 [address] TEDS in place. SKIN: [place], dry, warm. No rashes. NEURO: Alert and oriented x 3. Cranial nerves III-XII are intact. No focal deficits appreciated. A&P: Mr. Mills is a 67-year-old who reported being in his usual state of health until the evening of admission when he was visiting his daughter at her place of employment when he slipped and fell on his right hip to the ground. He subsequently felt pain and was unable to raise off the ground. Activated EMS and presented to the emergency room. Imaging revealing right intertrochanteric femoral fracture. Orthopedics was consulted. S/P right hip trochanteric fixation nailing (TFN) for intertrochanteric hip fracture. Pt was transferred to ARU, Dr Albarran, 10/06/18. 1. Mechanical fall resulting in right intertrochanteric femur fracture/IM nail right hip on 09/30/2018. Management as per Orthopedics. PT/OT/ST as per ARU Pain control as per ARU Bowel care as per ARU Disposition as per ARU DVT px. Continue Eliquis 2.5mg by mouth twice daily for anticoagulation. 2. Acute on chronic kidney disease, stage III: Baseline 1.6-1.8 10/15/18 Creatinine 1.72. S/P IVF x 1 liter 10/08/18 Continue Lasix 20 mg po daily. Monitor I/O. Monitor daily wt 1800cc FR Monitor BMP. 3. Hematuria: Status post Hdez catheter. Follow-up urinalysis has normalized. Could consider outpatient follow-up with urology. 4. Iron deficiency Anemia Started iron supplement daily with vitamin C. Peripheral smear Normocytic anemia; patient is status-post hip surgery. No blasts identified. Minimal thrombocytopenia with normal platelet morphology. Folate 8.7. Vitamin B12 level WNL. No signs of bleeding. Hgb 9.7, stable. Monitor 5. Diabetes mellitus with hyperglycemia and neuropathy: CC diet. Pt readily admits he follows diet much differently while here. BS was noted to be 34 10/12/18 AM. Pt felt dizzy. Continue Levemir 5 u HS, continue to monitor. BS 107-188. SSI. Lyrica. Monitor BS. 6. Recent diagnosis of atrial fibrillation. Continue Eliquis, metoprolol, and amiodarone. 7. Depression: Continue Lexapro. 8. Gastroesophageal reflux disease: Continue famotidine and omeprazole. 9. Benign prostatic hyperplasia: Continue Flomax. 10. Coronary artery disease status-post cardiac stenting: Follows with Dr. Johnson. Status-post stenting in 2000. 11. HTN/HHD/LVH EF 65%/DD. S/P IVF 10/08/18 x 1 liter. Improved LE edema, Continue with Lasix 20 mg daily. Hydralazine 12.5 mg Q8 added for elevated BP. SCr at baseline. BMP in AM. 12. History of TIA/CVA: Residual left-sided weakness. Monitor. VS, I&O, 24H, Fishbone Vital Signs/I&O Vital Signs Date Time Temp Pulse Resp B/P (MAP) Pulse Ox O2 Delivery O2 Flow Rate FiO2 10/18/18 11:41 19 10/18/18 08:03 52 108/57 10/18/18 06:00 98.1 95 10/13/18 06:00 Room Air I&O- Last 24 Hours up to 6 AM 10/18/18 06:00 Intake Total 1140 ml Output Total 1950 ml Balance -810 ml Laboratory Data 24H LABS Laboratory Tests 2 10/17/18 16:48: Bedside Glucose (Misc Panel) 120H 10/17/18 21:01: Bedside Glucose (Misc Panel) 188H 10/18/18 06:35: Bedside Glucose (Misc Panel) 134H Microbiology Microbiology 10/08/18 Urine Culture - Final, Complete Sharron Cartwright Oct 18, 2018 11:47
[2018-10-18] MEDS: FUROSEMIDE 20 MG TAB PO SCH (11:53)
--- NOTE | 2018-10-18 13:57 | NUR ---
Pt w/ mild deficits in short term memory and pragmatic language, but cognitive status is at baseline. Educated pt and other therapy staff on these deficits and appropriate cuing. Cognitive therapy is not recommended. Addendum: 10/18/18 at 1358 by MARCO A TILLMAN [facility] Amended: Links added.
[2018-10-18 14:00] VITALS: BP 115/58
--- NOTE | 2018-10-18 18:40 | IPNPDOC ---
PM&R Progress Note DATE OF SERVICE: Oct 18, 2018 Fruit Cutter Progress Note Subjective: Patient feeling well today, states he is walking better and believes his insurance company will cover the cost of all of his home equipment. REVIEW OF SYSTEMS: The following is a completed review of systems and has been reviewed. Review of systems otherwise unremarkable. PAIN: Patient self reports right hip pain EYES: Negative for recent vision changes EARS, NOSE, & THROAT:no dysphagia or rhinorrhea CARDIOVASCULAR: +Afib, denies chest pain PULMONARY: Negative. Denies shortness of breath. GASTROINTESTINAL: Negative for constipation or diarrhea GENITOURINARY:+retention MUSCULOSKELETAL: right hip fracture NEUROLOGICAL: no tremor, no focal weakness, +diabetic neuropathy HEMATOLOGICAL:no ecchymosis SKIN: right hip incision PSYCHIATRIC: Unremarkable All other review of systems found to be negative. PHYSICAL EXAMINATION: VITAL SIGNS: Please see below. GENERAL: Pleasant and cooperative. No acute distress. HEENT: PERRL. Extraocular movements intact. Clear conjunctiva CARDIOVASCULAR: Irregular rate and rhythm. No murmurs, rubs, or gallops LUNGS: Clear to auscultation bilaterally. No wheezes. No rhonchi ABDOMEN: Soft, nontender, mildly distended. Positive bowel sounds. Normal active bowel sounds NEUROLOGICAL: Alert and oriented times three. Cranial nerves II through XII grossly intact. Sensation diminished in stocking pattern lower extremities EXTREMITIES: 5\5 strength bilateral upper extremities. 5-\5 strength ankle DF and EHL did not test right hip flexors or knee extensors due to pain 5-/5 strength in left lower extremity. SKIN: right hp inicions c/d/i, no surrounding induration or erythema +bilateral edema-improving ASSESSMENT:67-year-old M with past medical history of CAD sp stent, Afib, DM who presents status post fall with right hip fracture. PLAN: 1. 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 Ortho: s.p right hip ORIF, ortho consulted, WBAT 2. Neuro: pmh CVA/TIA, continue secondary stroke prevention measures- statin, ASA, and BP management 3. CArdio: pmh Afib on amiodarone and low dose Eliquis, chronic diastolic HF and HTN, continue home meds and monitor - medicine consulted 4. Endo: pmh DM, continue insulin therapy, will order nutrition consult per patient request to assist with weight loss- 5units long-acting qHS and continue premeal SS 6. 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 DVT ppx: on eliquis, TEDs 6. Pain: Tylenol and [place] prn, ICE TID 7. Psych: depression, continue Wellbutrin and Lexapro 8. resp: Incentive spirometry, monitor for cough-stable 9. Skin: bilateral LE edema, Lasix restarted, alyson wrap and elevate legs while in bed-improving 9. Dispo: 10/28/18 to home, progressing toward goals, will need to climb 14-16 stairs prior to discharge Allergies Coded Allergies: Latex (Verified Allergy, Unknown, Hives, 09/28/18) had reaction to rubber gloves-hives Penicillins (Verified Allergy, Unknown, 01/07/14) Vital Signs Vital Signs Date Time Temp Pulse Resp B/P (MAP) Pulse Ox O2 Delivery O2 Flow Rate FiO2 10/18/18 18:03 17 10/18/18 14:00 97.5 51 115/58 (77) 96 10/13/18 06:00 Room Air Laboratory Data Labs 24H Laboratory Tests 2 10/17/18 21:01: Bedside Glucose (Misc Panel) 188H 10/18/18 06:35: Bedside Glucose (Misc Panel) 134H 10/18/18 17:16: Bedside Glucose (Misc Panel) 162H Microbiology Microbiology 10/08/18 Urine Culture - Final, Complete Current Medications Current Medications Current Medications Acetaminophen (Tylenol Tab) 650 mg Q4HP PRN PO fever/MILD PAIN (PS 1-4); Start 10/06/18 at 16:30 Acetaminophen/ Hydrocodone Bitart ([place], Anexsia 5/325) 1 tab Q4HP PRN PO MODERATE PAIN (PS 5-7) Last administered on 10/11/18at 21:51; Start 10/06/18 at 16:30 Acetaminophen/ Hydrocodone Bitart ([place], Anexsia 5/325) 2 tab Q4HP PRN PO SEVERE PAIN (PS 8-10) Last administered on 10/18/18at 17:21; Start 10/06/18 at 16:30 Amiodarone HCl (Pacerone, Cordarone) 200 mg DAILY PO Last administered on 10/18/18 08:03; Start 10/07/18 at 09:00 Apixaban (Eliquis) 2.5 mg BID PO Last administered on 10/18/18 08:02; Start 10/06/18 at 21:00 Ascorbic Acid (Vitamin C) 500 mg DAILY PO Last administered on 10/18/18 08:02; Start 10/07/18 at 09:00 Atorvastatin Calcium (Lipitor) 10 mg QHS PO Last administered on 10/17/18 22:12; Start 10/06/18 at 21:00 Bisacodyl (Dulcolax Suppository) 10 mg DAILYPRN PRN [place] CONSTIPATION; Start 10/06/18 at 16:30 Bupropion HCl (Wellbutrin Sr) 100 mg DAILY PO Last administered on 10/18/18 08:03; Start 10/07/18 at 09:00 Dextrose (Dextrose 50%) 25 ml ASDIRECTED PRN IV SEE LABEL COMMENTS; Start 10/06/18 at 16:45 Escitalopram Oxalate (Lexapro) 20 mg DAILY PO Last administered on 10/18/18 08:03; Start 10/07/18 at 09:00 Famotidine (Pepcid) 20 mg DAILY PO Last administered on 10/18/18 08:02; Start 10/07/18 at 09:00 Ferrous Gluconate (Fergon) 324 mg DAILY PO Last administered on 10/18/18 08:02; Start 10/07/18 at 09:00 Furosemide (Lasix) 20 mg DAILY PO Last administered on 10/17/18 08:54; Start 10/11/18 at 09:00; Stop 10/17/18 at 09:01; Status DC Furosemide (Lasix) 20 mg DAILY PO Last administered on 10/18/18at 11:53; Start 10/18/18 at 09:00 Glucagon (Glucagon) 1 mg ASDIRECTED PRN SC SEE LABEL COMMENTS; Start 10/06/18 at 16:45 Glucose (Glucose) 16 GM ASDIRECTED PRN PO SEE LABEL COMMENTS; Start 10/06/18 at 16:45 Home Med (Med Rec Complete!) ASDIRECTED XX ; Start 10/06/18 at 17:30; Stop 10/06/18 at 17:30; Status DC Hydralazine HCl (Apresoline) 12.5 mg Q8H PO Last administered on 10/17/18at 22:12; Start 10/13/18 at 14:00 Insulin Detemir (Levemir Insulin) 5 units QHS SC Last administered on 10/17/18at 22:11; Start 10/15/18 at 21:00 Insulin Detemir (Levemir Insulin) 45 units DAILY SC Last administered on 10/12/18at 09:07; Start 10/07/18 at 09:00; Stop 10/12/18 at 16:18; Status DC Insulin Human Lispro (HumaLOG INSULIN) SEE PROTOCOL TABLE AC SC Last administered on 10/18/18at 17:21; Start 10/06/18 at 17:30 Insulin Human Lispro (HumaLOG INSULIN) See Protocol Table QHS SC ; Start 10/06/18 at 21:00 Lactulose (Cephulac) 30 ml DAILY PO Last administered on 10/13/18at 08:15; Start 10/07/18 at 09:00 Magnesium Hydroxide (Milk Of Magnesia) 30 ml DAILYPRN PRN PO CONSTIPATION; Start 10/06/18 at 16:30 Metoprolol Succinate (TopROL XL) 75 mg DAILY PO ; Start 10/19/18 at 09:00 Metoprolol Succinate (TopROL XL) 100 mg DAILY PO Last administered on 10/17/18at 08:55; Start 10/07/18 at 09:00; Stop 10/18/18 at 10:48; Status DC Miscellaneous (Unresolved Clarification Entry) SEE LABEL COMMENTS DAILY XX ; Start 10/12/18 at 09:00; Stop 10/13/18 at 07:15; Status DC Miscellaneous (Unresolved Clarification Entry) SEE LABEL COMMENTS DAILY XX ; Start 10/13/18 at 09:00; Stop 10/13/18 at 09:35; Status DC Miscellaneous (Unresolved Clarification Entry) SEE LABEL COMMENTS DAILY XX ; Start 10/14/18 at 09:00; Stop 10/14/18 at 09:00; Status DC Pregabalin (Lyrica) 150 mg BID PO Last administered on 10/18/18at 08:03; Start 10/06/18 at 21:00 Senna/Docusate Sodium (Senokot S) 1 tab BID PO Last administered on 10/17/18at 22:12; Start 10/06/18 at 21:00 Tamsulosin HCl (Flomax) 0.4 mg DAILY PO Last administered on 10/18/18 08:03; Start 10/07/18 at 09:00 Vitamin D (Vitamin D) 1,000 units DAILY PO Last administered on 10/18/18at 08:02; Start 10/07/18 at 09:00 KARLA ULLOA MD Oct 18, 2018 18:40
[2018-10-18] MEDS: LEVEMIR (INSULIN DETEMIR) 1 UNITS/0.01ML SC SCH (21:28)
[2018-10-18] MEDS: ATORVASTATIN 10 MG TAB PO SCH (21:29)
[2018-10-18 21:45] VITALS: BP 132/64
[2018-10-19 06:00] VITALS: BP 128/61
[2018-10-19] MEDS: **hydrALAZINE HCL** 25 MG TAB PO SCH ×3 (06:08→20:52)
[2018-10-19 07:03] LABS: HEMOGLOBIN 9.4 g/dl (13.5-17.5); MEAN CORPUSCULAR HEMOGLOBIN 30.3 pg (27.0-33.0); MEAN CORPUSCULAR HGB CONC 31.3 g/dl (32.0-36.5); MEAN CORPUSCULAR VOLUME 96.8 fl (80.0-96.0); PLATELET COUNT, AUTOMATED 167 10^3/uL (150-450); WHITE BLOOD COUNT 5.3 10^3/uL (4.0-10.0)
[2018-10-19 07:27] LABS: CALCIUM LEVEL 8.2 MG/DL (8.8-10.2); CREATININE FOR GFR 1.79 MG/DL (0.70-1.30); GLOMERULAR FILTRATION RATE 40.3 (>49); POTASSIUM SERUM 4.5 MEQ/L (3.5-5.1)
[2018-10-19] MEDS: PREGABALIN 75 MG CAP(LYRICA) PO SCH ×2 (08:12→20:52)
[2018-10-19] MEDS: AMIODARONE 200 MG TAB (PACERONE) PO SCH (08:12)
[2018-10-19] MEDS: TAMSULOSIN 0.4 MG CAP PO SCH (08:12)
[2018-10-19] MEDS: LACTULOSE 20 GM/30 ML SYRUP UD PO SCH (08:12)
[2018-10-19] MEDS: ESCITALOPRAM OXALATE 10 MG TAB (LEXAPRO) PO SCH (08:13)
[2018-10-19] MEDS: buPROPion (WELLBUTRIN SR) 100 MG SR TAB PO SCH (08:13)
[2018-10-19] MEDS: FUROSEMIDE 20 MG TAB PO SCH (08:13)
[2018-10-19] MEDS: ASCORBIC ACID 500 MG TAB PO SCH (08:13)
[2018-10-19] MEDS: VITAMIN D 1,000 INTERNATIONAL UNITS TABLET PO SCH (08:13)
[2018-10-19] MEDS: SENOKOT S TAB PO SCH ×2 (08:13→20:52)
[2018-10-19] MEDS: FERROUS GLUCONATE 324 MG TAB PO SCH (08:13)
[2018-10-19] MEDS: APIXABAN 2.5 MG TAB (ELIQUIS) PO SCH ×2 (08:13→20:52)
[2018-10-19] MEDS: HumaLOG INSULIN (NovoLOG) PER UNIT SC SCH ×4 (08:13→21:00)
[2018-10-19] MEDS: FAMOTIDINE 20 MG TAB PO SCH (08:13)
[2018-10-19] MEDS: METOPROLOL SUCC *XL* 25MG TAB (TopROL *XL*) PO SCH (08:14)
[2018-10-19] MEDS: NORCO, ANEXSIA 5/325MG TABLET (HYDROcodone/ACETAMINOPHEN) PO PRN ×3 (09:06→19:44)
[2018-10-19 14:00] VITALS: BP 140/62
--- NOTE | 2018-10-19 14:07 | IPNPDOC ---
Date Seen The patient was seen on 10/19/18. Progress Note HPI: Mr. Mills is a 67-year-old who reported being in his usual state of health until the evening of admission when he was visiting his daughter at her place of employment when he slipped and fell on his right hip to the ground. He subsequently felt pain and was unable to raise off the ground. Activated EMS and presented to the emergency room. Imaging revealing right intertrochanteric femoral fracture. Orthopedics was consulted. S/P right hip trochanteric fixation nailing (TFN) for intertrochanteric hip fracture. Pt was transferred to ARU, Dr Albarran, 10/06/18. Pt is OOB to wheelchair with PT. The pt states LE edema decreased today. Denies any fevers, chills, weakness, fatigue, Headache, Chest Pain, Shortness of breath, cough, palpitations, abdominal pain, N/V/D or changes in bowel or bladder habits. PMHx: DM HTN HLD CAD GERD CHF TTE 09/28/18 EF 65%, DD. PSHX: Cholecystectomy. CAD with stent placement 2000. PE: GEN: 67yoM, appears stated age. No acute distress. Alert and oriented x 3. Pleasant, interactive. HEENT: Normocephalic, atraumatic. Sclera are nonicteric. Conjunctiva without injection. Moist mucous membranes. CHEST: Regular rate and rhythm, +S1, +S2 LUNGS: Clear to auscultation bilaterally. No wheezes, rales, or rhonchi. ABD: Round, soft, non-tender, non-distended. +Bowel sounds throughout. No rebound or guarding. EXT: tr-1mm lower extremity edema appreciated B/L distal pretib areas/1mm pedal. TEDS in place. SKIN: [place], dry, warm. No rashes. NEURO: Alert and oriented x 3. Cranial nerves III-XII are intact. No focal deficits appreciated. A&P: Mr. Mills is a 67-year-old who reported being in his usual state of health until the evening of admission when he was visiting his daughter at her place of employment when he slipped and fell on his right hip to the ground. He subsequently felt pain and was unable to raise off the ground. Activated EMS and presented to the emergency room. Imaging revealing right intertrochanteric femoral fracture. Orthopedics was consulted. S/P right hip trochanteric fixation nailing (TFN) for intertrochanteric hip fracture. Pt was transferred to ARU, Dr Albarran, 10/06/18. 1. Mechanical fall resulting in right intertrochanteric femur fracture/IM nail right hip on 09/30/2018. Management as per Orthopedics. PT/OT/ST as per ARU Pain control as per ARU Bowel care as per ARU Disposition as per ARU DVT px. Continue Eliquis 2.5mg by mouth twice daily for anticoagulation. 2. Acute on chronic kidney disease, stage III: Baseline 1.6-1.8 10/15/18 Creatinine 1.72. S/P IVF x 1 liter 10/08/18 Continue Lasix 20 mg po daily. Monitor I/O. Monitor daily wt 1800cc FR Monitor BMP. 3. Hematuria: Status post Hdez catheter. Follow-up urinalysis has normalized. Could consider outpatient follow-up with urology. 4. Iron deficiency Anemia Started iron supplement daily with vitamin C. Peripheral smear Normocytic anemia; patient is status-post hip surgery. No blasts identified. Minimal thrombocytopenia with normal platelet morphology. Folate 8.7. Vitamin B12 level WNL. No signs of bleeding. Hgb 9.4, stable. Monitor 5. Diabetes mellitus with hyperglycemia and neuropathy: CC diet. Pt readily admits he follows diet much differently while here. Levemir 5 u HS. SSI. Lyrica Monitor BS. 6. Recent diagnosis of atrial fibrillation. Continue Eliquis, metoprolol, and amiodarone. 7. Depression: Continue Lexapro. 8. Gastroesophageal reflux disease: Continue famotidine and omeprazole. 9. Benign prostatic hyperplasia: Continue Flomax. 10. Coronary artery disease status-post cardiac stenting: Follows with Dr. Johnson. Status-post stenting in 2000. 11. HTN/HHD/LVH EF 65%/DD. S/P IVF 10/08/18 x 1 liter. Improved LE edema, Continue with Lasix 20 mg daily. Hydralazine 12.5 mg Q8 added for elevated BP. SCr at baseline. BMP in AM. 12. History of TIA/CVA: Residual left-sided weakness. Monitor. VS, I&O, 24H, Fishbone Vital Signs/I&O Vital Signs Date Time Temp Pulse Resp B/P (MAP) Pulse Ox O2 Delivery O2 Flow Rate FiO2 10/19/18 10:02 18 10/19/18 08:14 66 123/59 10/19/18 06:00 97.8 96 10/13/18 06:00 Room Air I&O- Last 24 Hours up to 6 AM 10/19/18 06:00 Intake Total 1200 ml Output Total 750 ml Balance 450 ml Laboratory Data 24H LABS Laboratory Tests 2 10/18/18 17:16: Bedside Glucose (Misc Panel) 162H 10/18/18 19:50: Bedside Glucose (Misc Panel) 174H 10/19/18 06:43: Nucleated Red Blood Cells % (auto) 0.0, Anion Gap 5L, Glomerular Filtration Rate 40.3L, Blood Urea Nitrogen 54H, Creatinine 1.79H, Sodium Level 139, Potassium Level 4.5, Chloride Level 105, Carbon Dioxide Level 29, Calcium Level 8.2L 10/19/18 12:02: Bedside Glucose (Misc Panel) 146H CBC/BMP Laboratory Tests 10/19/18 06:43 Red Blood Count 3.10 L, Mean Corpuscular Volume 96.8 H, Mean Corpuscular Hemoglobin 30.3, Mean Corpuscular Hemoglobin Concent 31.3 L, Red Cell Distribution Width 13.7, Calcium Level 8.2 L Sharron Cartwright Oct 19, 2018 14:07
[2018-10-19] MEDS: ATORVASTATIN 10 MG TAB PO SCH (20:52)
[2018-10-19] MEDS: LEVEMIR (INSULIN DETEMIR) 1 UNITS/0.01ML SC SCH (20:53)
[2018-10-19 23:32] VITALS: BP 144/76
[2018-10-20 05:07] VITALS: BP 132/76
[2018-10-20] MEDS: **hydrALAZINE HCL** 25 MG TAB PO SCH ×3 (05:40→21:56)
[2018-10-20] MEDS: NORCO, ANEXSIA 5/325MG TABLET (HYDROcodone/ACETAMINOPHEN) PO PRN ×2 (05:42→09:57)
[2018-10-20] MEDS: TAMSULOSIN 0.4 MG CAP PO SCH (09:53)
[2018-10-20] MEDS: ASCORBIC ACID 500 MG TAB PO SCH (09:53)
[2018-10-20] MEDS: HumaLOG INSULIN (NovoLOG) PER UNIT SC SCH ×4 (09:53→21:00)
[2018-10-20] MEDS: FUROSEMIDE 20 MG TAB PO SCH (09:53)
[2018-10-20] MEDS: VITAMIN D 1,000 INTERNATIONAL UNITS TABLET PO SCH (09:53)
[2018-10-20] MEDS: FERROUS GLUCONATE 324 MG TAB PO SCH (09:54)
[2018-10-20] MEDS: FAMOTIDINE 20 MG TAB PO SCH (09:54)
[2018-10-20] MEDS: PREGABALIN 75 MG CAP(LYRICA) PO SCH ×2 (09:54→21:56)
[2018-10-20] MEDS: METOPROLOL SUCC *XL* 25MG TAB (TopROL *XL*) PO SCH (09:54)
[2018-10-20] MEDS: APIXABAN 2.5 MG TAB (ELIQUIS) PO SCH ×2 (09:54→21:56)
[2018-10-20] MEDS: buPROPion (WELLBUTRIN SR) 100 MG SR TAB PO SCH (09:54)
[2018-10-20] MEDS: ESCITALOPRAM OXALATE 10 MG TAB (LEXAPRO) PO SCH (09:54)
[2018-10-20] MEDS: AMIODARONE 200 MG TAB (PACERONE) PO SCH (09:54)
[2018-10-20] MEDS: SENOKOT S TAB PO SCH ×2 (09:55→21:00)
[2018-10-20] MEDS: LACTULOSE 20 GM/30 ML SYRUP UD PO SCH (09:55)
--- NOTE | 2018-10-20 10:21 | IPNPDOC ---
PM&R Progress Note DATE OF SERVICE: Oct 19, 2018 Clinical Professor Progress Note Subjective: Patient is ing ood spirits and said he had a good day in therapy. REVIEW OF SYSTEMS: The following is a completed review of systems and has been reviewed. Review of systems otherwise unremarkable. PAIN: Patient self reports right hip pain EYES: Negative for recent vision changes EARS, NOSE, & THROAT:no dysphagia or rhinorrhea CARDIOVASCULAR: +Afib, denies chest pain PULMONARY: Negative. Denies shortness of breath. GASTROINTESTINAL: Negative for constipation or diarrhea GENITOURINARY:+retention (improving) MUSCULOSKELETAL: right hip fracture NEUROLOGICAL: no tremor, no focal weakness, +diabetic neuropathy HEMATOLOGICAL:no ecchymosis SKIN: right hip incision PSYCHIATRIC: Unremarkable All other review of systems found to be negative. PHYSICAL EXAMINATION: VITAL SIGNS: Please see below. GENERAL: Pleasant and cooperative. No acute distress. HEENT: PERRL. Extraocular movements intact. Clear conjunctiva CARDIOVASCULAR: Irregular rate and rhythm. No murmurs, rubs, or gallops LUNGS: Clear to auscultation bilaterally. No wheezes. No rhonchi ABDOMEN: Soft, nontender, mildly distended. Positive bowel sounds. Normal active bowel sounds NEUROLOGICAL: Alert and oriented times three. Cranial nerves II through XII grossly intact. Sensation diminished in stocking pattern lower extremities EXTREMITIES: 5\5 strength bilateral upper extremities. 5-\5 strength ankle DF and EHL did not test right hip flexors or knee extensors due to pain 5-/5 strength in left lower extremity. SKIN: right hp inisions c/d/i, no surrounding induration or erythema +bilateral edema-improving ASSESSMENT:67-year-old M with past medical history of CAD sp stent, Afib, DM who presents status post fall with right hip fracture. PLAN: 1. 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 Ortho: s.p right hip ORIF, ortho consulted, WBAT 2. Neuro: pmh CVA/TIA, continue secondary stroke prevention measures- statin, ASA, and BP management 3. CArdio: pmh Afib on amiodarone and low dose Eliquis, chronic diastolic HF and HTN, continue home meds and monitor - medicine consulted 4. Endo: pmh DM, continue insulin therapy, will order nutrition consult per patient request to assist with weight loss- 5units long-acting qHS and continue premeal SS 6. 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 DVT ppx: on eliquis, TEDs 6. Pain: Tylenol and [place] prn, ICE TID 7. Psych: depression, continue Wellbutrin and Lexapro 8. resp: Incentive spirometry, monitor for cough-stable 9. Skin: bilateral LE edema, Lasix restarted, alyson wrap and elevate legs while in bed-improving 9. Dispo: 10/28/18 to home, progressing toward goals, will need to climb 14-16 stairs prior to discharge Allergies Coded Allergies: Latex (Verified Allergy, Unknown, Hives, 09/28/18) had reaction to rubber gloves-hives Penicillins (Verified Allergy, Unknown, 01/07/14) Vital Signs Vital Signs Date Time Temp Pulse Resp B/P (MAP) Pulse Ox O2 Delivery O2 Flow Rate FiO2 10/20/18 09:57 18 10/20/18 09:54 60 132/76 10/20/18 05:07 97.6 91 Laboratory Data Labs 24H Laboratory Tests 2 10/19/18 12:02: Bedside Glucose (Misc Panel) 146H 10/19/18 16:37: Bedside Glucose (Misc Panel) 183H 10/19/18 19:59: Bedside Glucose (Misc Panel) 205H 10/20/18 06:05: Bedside Glucose (Misc Panel) 157H Current Medications Current Medications Current Medications Acetaminophen (Tylenol Tab) 650 mg Q4HP PRN PO fever/MILD PAIN (PS 1-4); Start 10/06/18 at 16:30 Acetaminophen/ Hydrocodone Bitart ([place], Anexsia 5/325) 1 tab Q4HP PRN PO MODERATE PAIN (PS 5-7) Last administered on 10/11/18at 21:51; Start 10/06/18 at 16:30 Acetaminophen/ Hydrocodone Bitart ([place], Anexsia 5/325) 2 tab Q4HP PRN PO SEVERE PAIN (PS 8-10) Last administered on 10/20/18at 09:57; Start 10/06/18 at 16:30 Amiodarone HCl (Pacerone, Cordarone) 200 mg DAILY PO Last administered on 10/20/18 09:54; Start 10/07/18 at 09:00 Apixaban (Eliquis) 2.5 mg BID PO Last administered on 10/20/18 09:54; Start 10/06/18 at 21:00 Ascorbic Acid (Vitamin C) 500 mg DAILY PO Last administered on 10/20/18 09:53; Start 10/07/18 at 09:00 Atorvastatin Calcium (Lipitor) 10 mg QHS PO Last administered on 10/19/18 20:52; Start 10/06/18 at 21:00 Bisacodyl (Dulcolax Suppository) 10 mg DAILYPRN PRN [place] CONSTIPATION; Start 10/06/18 at 16:30 Bupropion HCl (Wellbutrin Sr) 100 mg DAILY PO Last administered on 10/20/18 09:54; Start 10/07/18 at 09:00 Dextrose (Dextrose 50%) 25 ml ASDIRECTED PRN IV SEE LABEL COMMENTS; Start 10/06/18 at 16:45 Escitalopram Oxalate (Lexapro) 20 mg DAILY PO Last administered on 10/20/18 09:54; Start 10/07/18 at 09:00 Famotidine (Pepcid) 20 mg DAILY PO Last administered on 10/20/18 09:54; Start 10/07/18 at 09:00 Ferrous Gluconate (Fergon) 324 mg DAILY PO Last administered on 10/20/18 09:54; Start 10/07/18 at 09:00 Furosemide (Lasix) 20 mg DAILY PO Last administered on 10/17/18 08:54; Start 10/11/18 at 09:00; Stop 10/17/18 at 09:01; Status DC Furosemide (Lasix) 20 mg DAILY PO Last administered on 10/20/18 09:53; Start 10/18/18 at 09:00 Glucagon (Glucagon) 1 mg ASDIRECTED PRN SC SEE LABEL COMMENTS; Start 10/06/18 at 16:45 Glucose (Glucose) 16 GM ASDIRECTED PRN PO SEE LABEL COMMENTS; Start 10/06/18 at 16:45 Home Med (Med Rec Complete!) ASDIRECTED XX ; Start 10/06/18 at 17:30; Stop 10/06/18 at 17:30; Status DC Hydralazine HCl (Apresoline) 12.5 mg Q8H PO Last administered on 10/20/18at 05:40; Start 10/13/18 at 14:00 Insulin Detemir (Levemir Insulin) 5 units QHS SC Last administered on 10/19/18at 20:53; Start 10/15/18 at 21:00 Insulin Detemir (Levemir Insulin) 45 units DAILY SC Last administered on 10/12/18at 09:07; Start 10/07/18 at 09:00; Stop 10/12/18 at 16:18; Status DC Insulin Human Lispro (HumaLOG INSULIN) SEE PROTOCOL TABLE AC SC Last admin istered on 10/20/18at 09:53; Start 10/06/18 at 17:30 Insulin Human Lispro (HumaLOG INSULIN) See Protocol Table QHS SC ; Start 09/15 11/30 at 21:00 Lactulose (Cephulac) 30 ml DAILY PO Last administered on 10/13/18at 08:15; Start 10/07/18 at 09:00 Magnesium Hydroxide (Milk Of Magnesia) 30 ml DAILYPRN PRN PO CONSTIPATION; Start 10/06/18 at 16:30 Metoprolol Succinate (TopROL XL) 75 mg DAILY PO Last administered on 10/20/18at 09:54; Start 10/19/18 at 09:00 Metoprolol Succinate (TopROL XL) 100 mg DAILY PO Last administered on 10/17/18at 08:55; Start 10/07/18 at 09:00; Stop 10/18/18 at 10:48; Status DC Miscellaneous (Unresolved Clarification Entry) SEE LABEL COMMENTS DAILY XX ; Start 10/12/18 at 09:00; Stop 10/13/18 at 07:15; Status DC Miscellaneous (Unresolved Clarification Entry) SEE LABEL COMMENTS DAILY XX ; Start 10/13/18 at 09:00; Stop 10/13/18 at 09:35; Status DC Miscellaneous (Unresolved Clarification Entry) SEE LABEL COMMENTS DAILY XX ; Start 10/14/18 at 09:00; Stop 10/14/18 at 09:00; Status DC Pregabalin (Lyrica) 150 mg BID PO Last administered on 10/20/18at 09:54; Start 10/06/18 at 21:00 Senna/Docusate Sodium (Senokot S) 1 tab BID PO Last administered on 10/19/18at 20:52; Start 10/06/18 at 21:00 Tamsulosin HCl (Flomax) 0.4 mg DAILY PO Last administered on 10/20/18 09:53; Start 10/07/18 at 09:00 Vitamin D (Vitamin D) 1,000 units DAILY PO Last administered on 10/20/18at 09:53; Start 10/07/18 at 09:00 KARLA ULLOA MD Oct 20, 2018 10:21
--- NOTE | 2018-10-20 10:22 | IPNPDOC ---
PM&R Progress Note DATE OF SERVICE: Oct 20, 2018 Bdr Progress Note Subjective: Patient seen in PT able to walk with RW close supervision and side step, reports he is doing better than he thought he would. REVIEW OF SYSTEMS: The following is a completed review of systems and has been reviewed. Review of systems otherwise unremarkable. PAIN: Patient self reports right hip pain EYES: Negative for recent vision changes EARS, NOSE, & THROAT:no dysphagia or rhinorrhea CARDIOVASCULAR: +Afib, denies chest pain PULMONARY: Negative. Denies shortness of breath. GASTROINTESTINAL: Negative for constipation or diarrhea GENITOURINARY:+retention (improving) MUSCULOSKELETAL: right hip fracture NEUROLOGICAL: no tremor, no focal weakness, +diabetic neuropathy HEMATOLOGICAL:no ecchymosis SKIN: right hip incision PSYCHIATRIC: Unremarkable All other review of systems found to be negative. PHYSICAL EXAMINATION: VITAL SIGNS: Please see below. GENERAL: Pleasant and cooperative. No acute distress. HEENT: PERRL. Extraocular movements intact. Clear conjunctiva CARDIOVASCULAR: Irregular rate and rhythm. No murmurs, rubs, or gallops LUNGS: Clear to auscultation bilaterally. No wheezes. No rhonchi ABDOMEN: Soft, nontender, mildly distended. Positive bowel sounds. Normal active bowel sounds NEUROLOGICAL: Alert and oriented times three. Cranial nerves II through XII grossly intact. Sensation diminished in stocking pattern lower extremities EXTREMITIES: 5\5 strength bilateral upper extremities. 5-\5 strength ankle DF and EHL did not test right hip flexors or knee extensors due to pain 5-/5 strength in left lower extremity. SKIN: right hp inisions c/d/i, no surrounding induration or erythema +bilateral edema-improving ASSESSMENT:67-year-old M with past medical history of CAD sp stent, Afib, DM who presents status post fall with right hip fracture. PLAN: 1. 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 Ortho: s.p right hip ORIF, ortho consulted, WBAT 2. Neuro: pmh CVA/TIA, continue secondary stroke prevention measures- statin, ASA, and BP management 3. CArdio: pmh Afib on amiodarone and low dose Eliquis, chronic diastolic HF and HTN, continue home meds and monitor - medicine consulted 4. Endo: pmh DM, continue insulin therapy, will order nutrition consult per patient request to assist with weight loss- 5units long-acting qHS and continue premeal SS 6. Renal: elevated BUN and [employer] s/p IVF, now on fluid restriction 1800cc/day, medicine recs appreciated 5. DVT ppx: on eliquis, TEDs 6. Pain: Tylenol and [place] prn, ICE TID 7. Psych: depression, continue Wellbutrin and Lexapro 8. resp: Incentive spirometry, monitor for cough-stable 9. Skin: bilateral LE edema, Lasix restarted, alyson wrap and elevate legs while in bed-improving 9. Dispo: 10/28/18 to home, progressing toward goals, will need to climb 14-16 stairs prior to discharge Allergies Coded Allergies: Latex (Verified Allergy, Unknown, Hives, 09/28/18) had reaction to rubber gloves-hives Penicillins (Verified Allergy, Unknown, 01/07/14) Vital Signs Vital Signs Date Time Temp Pulse Resp B/P (MAP) Pulse Ox O2 Delivery O2 Flow Rate FiO2 10/20/18 09:57 18 10/20/18 09:54 60 132/76 10/20/18 05:07 97.6 91 Laboratory Data Labs 24H Laboratory Tests 2 10/19/18 12:02: Bedside Glucose (Misc Panel) 146H 10/19/18 16:37: Bedside Glucose (Misc Panel) 183H 10/19/18 19:59: Bedside Glucose (Misc Panel) 205H 10/20/18 06:05: Bedside Glucose (Misc Panel) 157H Current Medications Current Medications Current Medications Acetaminophen (Tylenol Tab) 650 mg Q4HP PRN PO fever/MILD PAIN (PS 1-4); Start 10/06/18 at 16:30 Acetaminophen/ Hydrocodone Bitart ([place], Anexsia 5/325) 1 tab Q4HP PRN PO MODERATE PAIN (PS 5-7) Last administered on 10/11/18at 21:51; Start 10/06/18 at 16:30 Acetaminophen/ Hydrocodone Bitart ([place], Anexsia 5/325) 2 tab Q4HP PRN PO SEVERE PAIN (PS 8-10) Last administered on 10/20/18at 09:57; Start 10/06/18 at 1 6:30 Amiodarone HCl (Pacerone, Cordarone) 200 mg DAILY PO Last administered on 10/20/18 09:54; Start 10/07/18 at 09:00 Apixaban (Eliquis) 2.5 mg BID PO Last administered on 10/20/18 09:54; Start 10/06/18 at 21:00 Ascorbic Acid (Vitamin C) 500 mg DAILY PO Last administered on 10/20/18 09:53; Start 10/07/18 at 09:00 Atorvastatin Calcium (Lipitor) 10 mg QHS PO Last administered on 10/19/18 20:52; Start 10/06/18 at 21:00 Bisacodyl (Dulcolax Suppository) 10 mg DAILYPRN PRN [place] CONSTIPATION; Start 10/06/18 at 16:30 Bupropion HCl (Wellbutrin Sr) 100 mg DAILY PO Last administered on 10/20/18 09:54; Start 10/07/18 at 09:00 Dextrose (Dextrose 50%) 25 ml ASDIRECTED PRN IV SEE LABEL COMMENTS; Start 10/06/18 at 16:45 Escitalopram Oxalate (Lexapro) 20 mg DAILY PO Last administered on 10/20/18 09:54; Start 10/07/18 at 09:00 Famotidine (Pepcid) 20 mg DAILY PO Last administered on 10/20/18 09:54; Start 10/07/18 at 09:00 Ferrous Gluconate (Fergon) 324 mg DAILY PO Last administered on 10/20/18 09:54; Start 10/07/18 at 09:00 Furosemide (Lasix) 20 mg DAILY PO Last administered on 10/17/18 08:54; Start 10/11/18 at 09:00; Stop 10/17/18 at 09:01; Status DC Furosemide (Lasix) 20 mg DAILY PO Last administered on 10/20/18 09:53; Start 10/18/18 at 09:00 Glucagon (Glucagon) 1 mg ASDIRECTED PRN SC SEE LABEL COMMENTS; Start 10/06/18 at 16:45 Glucose (Glucose) 16 GM ASDIRECTED PRN PO SEE LABEL COMMENTS; Start 10/06/18 at 16:45 Home Med (Med Rec Complete!) ASDIRECTED XX ; Start 10/06/18 at 17:30; Stop 10/06/18 at 17:30; Status DC Hydralazine HCl (Apresoline) 12.5 mg Q8H PO Last administered on 10/20/18at 05:40; Start 10/13/18 at 14:00 Insulin Detemir (Levemir Insulin) 5 units QHS SC Last administered on 10/19/18at 20:53; Start 10/15/18 at 21:00 Insulin Detemir (Levemir Insulin) 45 units DAILY SC Last administered on 10/12/18at 09:07; Start 10/07/18 at 09:00; Stop 10/12/18 at 16:18; Status DC Insulin Human Lispro (HumaLOG INSULIN) SEE PROTOCOL TABLE AC SC Last administered on 10/20/18at 09:53; Start 10/06/18 at 17:30 Insulin Human Lispro (HumaLOG INSULIN) See Protocol Table QHS SC ; Start 10/06/18 at 21:00 Lactulose (Cephulac) 30 ml DAILY PO Last administered on 10/13/18at 08:15; Start 10/07/18 at 09:00 Magnesium Hydroxide (Milk Of Magnesia) 30 ml DAILYPRN PRN PO CONSTIPATION; Start 10/06/18 at 16:30 Metoprolol Succinate (TopROL XL) 75 mg DAILY PO Last administered on 10/20/18at 09:54; Start 10/19/18 at 09:00 Metoprolol Succinate (TopROL XL) 100 mg DAILY PO Last administered on 10/17/18at 08:55; Start 10/07/18 at 09:00; Stop 10/18/18 at 10:48; Status DC Miscellaneous (Unresolved Clarification Entry) SEE LABEL COMMENTS DAILY XX ; Start 10/12/18 at 09:00; Stop 10/13/18 at 07:15; Status DC Miscellaneous (Unresolved Clarification Entry) SEE LABEL COMMENTS DAILY XX ; Start 10/13/18 at 09:00; Stop 10/13/18 at 09:35; Status DC Miscellaneous (Unresolved Clarification Entry) SEE LABEL COMMENTS DAILY XX ; Start 10/14/18 at 09:00; Stop 10/14/18 at 09:00; Status DC Pregabalin (Lyrica) 150 mg BID PO Last administered on 10/20/18 09:54; Start 10/06/18 at 21:00 Senna/Docusate Sodium (Senokot S) 1 tab BID PO Last administered on 10/19/18 20:52; Start 10/06/18 at 21:00 Tamsulosin HCl (Flomax) 0.4 mg DAILY PO Last administered on 10/20/18 09:53; Start 10/07/18 at 09:00 Vitamin D (Vitamin D) 1,000 units DAILY PO Last administered on 10/20/18 09:53; Start 10/07/18 at 09:00 KARLA ULLOA MD Oct 20, 2018 10:22
--- NOTE | 2018-10-20 13:51 | IPNPDOC ---
Date Seen The patient was seen on 10/20/18. Progress Note HPI: Mr. Mills is a 67-year-old who reported being in his usual state of health until the evening of admission when he was visiting his daughter at her place of employment when he slipped and fell on his right hip to the ground. He subsequently felt pain and was unable to raise off the ground. Activated EMS and presented to the emergency room. Imaging revealing right intertrochanteric femoral fracture. Orthopedics was consulted. S/P right hip trochanteric fixation nailing (TFN) for intertrochanteric hip fracture. Pt was transferred to ARU, Dr Albarran, 10/06/18. Pt has been OOB with therapy and states he has been feeling well. The pt states LE edema decreased today. Denies any fevers, chills, weakness, fatigue, Headache, Chest Pain, Shortness of breath, cough, palpitations, abdominal pain, N/V/D or changes in bowel or bladder habits. PMHx: DM HTN HLD CAD GERD CHF TTE 09/28/18 EF 65%, DD. PSHX: Cholecystectomy. CAD with stent placement 2000. PE: GEN: 67yoM, appears stated age. No acute distress. Alert and oriented x 3. Pleasant, interactive. HEENT: Normocephalic, atraumatic. Sclera are nonicteric. Conjunctiva without injection. Moist mucous membranes. CHEST: Regular rate and rhythm, +S1, +S2 LUNGS: Clear to auscultation bilaterally. No wheezes, rales, or rhonchi. ABD: Round, soft, non-tender, non-distended. +Bowel sounds throughout. No rebound or guarding. EXT: tr lower extremity edema appreciated B/L distal pretib areas/pedal. TEDS in place. SKIN: [place], dry, warm. No rashes. NEURO: Alert and oriented x 3. Cranial nerves III-XII are intact. No focal deficits appreciated. A&P: Mr. Mills is a 67-year-old who reported being in his usual state of health until the evening of admission when he was visiting his daughter at her place of employment when he slipped and fell on his right hip to the ground. He subsequently felt pain and was unable to raise off the ground. Activated EMS and presented to the emergency room. Imaging revealing right intertrochanteric femoral fracture. Orthopedics was consulted. S/P right hip trochanteric fixation nailing (TFN) for intertrochanteric hip fracture. Pt was transferred to ARU, Dr Albarran, 10/06/18. 1. Mechanical fall resulting in right intertrochanteric femur fracture/IM nail right hip on 09/30/2018. Management as per Orthopedics. PT/OT/ST as per ARU Pain control as per ARU Bowel care as per ARU Disposition as per ARU DVT px. Continue Eliquis 2.5mg by mouth twice daily for anticoagulation. 2. 11. HTN/HHD/LVH EF 65%/DD. S/P IVF 10/08/18 x 1 liter. Improved LE edema, Continue with Lasix 20 mg daily. Hydralazine 12.5 mg Q8 added for elevated BP. SCr at baseline. Monitor. BMP 10/22. 3. Chronic kidney disease, stage III: Baseline 1.6-1.8 10/15/18 Creatinine 1.79. S/P IVF x 1 liter 10/08/18 Continue Lasix 20 mg po daily. Monitor I/O. Monitor daily wt 1800cc FR BMP 10/22 4. Hematuria: Status post Hdez catheter. Follow-up urinalysis has normalized. Could consider outpatient follow-up with urology. 5. Iron deficiency Anemia Started iron supplement daily with vitamin C. Peripheral smear Normocytic anemia; patient is status-post hip surgery. No blasts identified. Minimal thrombocytopenia with normal platelet morphology. Folate 8.7. Vitamin B12 level WNL. No signs of bleeding. Hgb 9.4, stable. Monitor 6. Diabetes mellitus with hyperglycemia and neuropathy: CC diet. Pt readily admits he follows diet much differently while here. Levemir 5 u HS. SSI. Lyrica Monitor BS. 7. Recent diagnosis of atrial fibrillation. Continue Eliquis, metoprolol, and amiodarone. 8. Depression: Continue Lexapro. 9. Gastroesophageal reflux disease: Continue famotidine and omeprazole. 10. Benign prostatic hyperplasia: Continue Flomax. 11. Coronary artery disease status-post cardiac stenting: Follows with Dr. Johnson. Status-post stenting in 2000. 12. History of TIA/CVA: Residual left-sided weakness. Monitor. VS, I&O, 24H, Fishbone Vital Signs/I&O Vital Signs Date Time Temp Pulse Resp B/P (MAP) Pulse Ox O2 Delivery O2 Flow Rate FiO2 10/20/18 10:30 20 10/20/18 09:54 60 132/76 10/20/18 05:07 97.6 91 I&O- Last 24 Hours up to 6 AM 10/20/18 06:00 Intake Total 1260 ml Output Total 725 ml Balance 535 ml Laboratory Data 24H LABS Laboratory Tests 2 10/19/18 16:37: Bedside Glucose (Misc Panel) 183H 10/19/18 19:59: Bedside Glucose (Misc Panel) 205H 10/20/18 06:05: Bedside Glucose (Misc Panel) 157H 10/20/18 11:35: Bedside Glucose (Misc Panel) 156H Sharron Cartwright Oct 20, 2018 13:51
[2018-10-20 14:00] VITALS: BP 140/60
[2018-10-20 20:00] VITALS: BP 142/70
[2018-10-20] MEDS: ATORVASTATIN 10 MG TAB PO SCH (21:56)
[2018-10-20] MEDS: LEVEMIR (INSULIN DETEMIR) 1 UNITS/0.01ML SC SCH (21:57)
[2018-10-21] MEDS: NORCO, ANEXSIA 5/325MG TABLET (HYDROcodone/ACETAMINOPHEN) PO PRN ×3 (01:47→12:27)
[2018-10-21 06:00] VITALS: BP 158/72
[2018-10-21] MEDS: **hydrALAZINE HCL** 25 MG TAB PO SCH ×3 (06:25→22:07)
[2018-10-21] MEDS: TAMSULOSIN 0.4 MG CAP PO SCH (08:23)
[2018-10-21] MEDS: ESCITALOPRAM OXALATE 10 MG TAB (LEXAPRO) PO SCH (08:23)
[2018-10-21] MEDS: FERROUS GLUCONATE 324 MG TAB PO SCH (08:23)
[2018-10-21] MEDS: ASCORBIC ACID 500 MG TAB PO SCH (08:23)
[2018-10-21] MEDS: VITAMIN D 1,000 INTERNATIONAL UNITS TABLET PO SCH (08:23)
[2018-10-21] MEDS: APIXABAN 2.5 MG TAB (ELIQUIS) PO SCH ×2 (08:23→22:08)
[2018-10-21] MEDS: FAMOTIDINE 20 MG TAB PO SCH (08:23)
[2018-10-21] MEDS: FUROSEMIDE 20 MG TAB PO SCH (08:24)
[2018-10-21] MEDS: buPROPion (WELLBUTRIN SR) 100 MG SR TAB PO SCH (08:24)
[2018-10-21] MEDS: PREGABALIN 75 MG CAP(LYRICA) PO SCH ×2 (08:24→22:07)
[2018-10-21] MEDS: AMIODARONE 200 MG TAB (PACERONE) PO SCH (08:24)
[2018-10-21] MEDS: HumaLOG INSULIN (NovoLOG) PER UNIT SC SCH ×4 (08:25→21:00)
[2018-10-21] MEDS: METOPROLOL SUCC *XL* 25MG TAB (TopROL *XL*) PO SCH (08:26)
[2018-10-21] MEDS: LACTULOSE 20 GM/30 ML SYRUP UD PO SCH (08:26)
[2018-10-21] MEDS: SENOKOT S TAB PO SCH ×2 (08:26→20:00)
--- NOTE | 2018-10-21 12:04 | IPNPDOC ---
PM&R Progress Note DATE OF SERVICE: Oct 21, 2018 Processing Lead Progress Note Subjective: Patient seen in PT reports he was able to climb some stairs and feels he is getting stronger each day. REVIEW OF SYSTEMS: The following is a completed review of systems and has been reviewed. Review of systems otherwise unremarkable. PAIN: Patient self reports right hip pain EYES: Negative for recent vision changes EARS, NOSE, & THROAT:no dysphagia or rhinorrhea CARDIOVASCULAR: +Afib, denies chest pain PULMONARY: Negative. Denies shortness of breath. GASTROINTESTINAL: Negative for constipation or diarrhea GENITOURINARY:+retention (improving) MUSCULOSKELETAL: right hip fracture NEUROLOGICAL: no tremor, no focal weakness, +diabetic neuropathy HEMATOLOGICAL:no ecchymosis SKIN: right hip incision PSYCHIATRIC: Unremarkable All other review of systems found to be negative. PHYSICAL EXAMINATION: VITAL SIGNS: Please see below. GENERAL: Pleasant and cooperative. No acute distress. HEENT: PERRL. Extraocular movements intact. Clear conjunctiva CARDIOVASCULAR: Irregular rate and rhythm. No murmurs, rubs, or gallops LUNGS: Clear to auscultation bilaterally. No wheezes. No rhonchi ABDOMEN: Soft, nontender, mildly distended. Positive bowel sounds. Normal active bowel sounds NEUROLOGICAL: Alert and oriented times three. Cranial nerves II through XII grossly intact. Sensation diminished in stocking pattern lower extremities EXTREMITIES: 5\5 strength bilateral upper extremities. 5-\5 strength ankle DF and EHL did not test right hip flexors or knee extensors due to pain 5-/5 strength in left lower extremity. SKIN: right hp inisions c/d/i, no surrounding induration or erythema +bilateral edema-improving ASSESSMENT:67-year-old M with past medical history of CAD sp stent, Afib, DM who presents status post fall with right hip fracture. PLAN: 1. 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 Ortho: s.p right hip ORIF, ortho consulted, WBAT 2. Neuro: pmh CVA/TIA, continue secondary stroke prevention measures- statin, ASA, and BP management 3. CArdio: pmh Afib on amiodarone and low dose Eliquis, chronic diastolic HF and HTN, continue home meds and monitor - medicine consulted 4. Endo: pmh DM, continue insulin therapy, will order nutrition consult per pat ient request to assist with weight loss- 5units long-acting qHS and continue premeal SS 6. Renal: elevated BUN and [employer] s/p IVF, now on fluid restriction 1800cc/day, medicine recs appreciated 5. DVT ppx: on eliquis, TEDs 6. Pain: Tylenol and [place] prn, ICE TID 7. Psych: depression, continue Wellbutrin and Lexapro 8. resp: Incentive spirometry, monitor for cough-stable 9. Skin: bilateral LE edema, Lasix restarted, alyson wrap and elevate legs while in bed-improving 9. Dispo: 10/28/18 to home, progressing toward goals, will need to climb 14-16 stairs prior to discharge Allergies Coded Allergies: Latex (Verified Allergy, Unknown, Hives, 09/28/18) had reaction to rubber gloves-hives Penicillins (Verified Allergy, Unknown, 01/07/14) Vital Signs Vital Signs Date Time Temp Pulse Resp B/P (MAP) Pulse Ox O2 Delivery O2 Flow Rate FiO2 10/21/18 08:26 61 150/70 10/21/18 07:16 16 10/21/18 06:00 99.3 91 Laboratory Data Labs 24H Laboratory Tests 2 10/20/18 17:33: Bedside Glucose (Misc Panel) 141H 10/20/18 20:16: Bedside Glucose (Misc Panel) 205H 10/21/18 07:10: Bedside Glucose (Misc Panel) 186H 10/21/18 11:30: Bedside Glucose (Misc Panel) 128H Current Medications Current Medications Current Medications Acetaminophen (Tylenol Tab) 650 mg Q4HP PRN PO fever/MILD PAIN (PS 1-4); Start 10/06/18 at 16:30 Acetaminophen/ Hydrocodone Bitart ([place], Anexsia 5/325) 1 tab Q4HP PRN PO MODERATE PAIN (PS 5-7) Last administered on 10/11/18at 21:51; Start 10/06/18 at 16:30 Acetaminophen/ Hydrocodone Bitart ([place], Anexs[place] 5/325) 2 tab Q4HP PRN PO SEVERE PAIN (PS 8-10) Last administered on 10/21/18at 06:30; Start 10/06/18 at 16:30 Amiodarone HCl ([place], Cordarone) 200 mg DAILY PO Last administered on 10/21/18 08:24; Start 10/07/18 at 09:00 Apixaban (Eliquis) 2.5 mg BID PO Last administered on 10/21/18 08:23; Start 10/06/18 at 21:00 Ascorbic Acid (Vitamin C) 500 mg DAILY PO Last administered on 10/21/18 08:23; Start 10/07/18 at 09:00 Atorvastatin Calcium (Lipitor) 10 mg QHS PO Last administered on 10/20/18at 21:56; Start 10/06/18 at 21:00 Bisacodyl (Dulcolax Suppository) 10 mg DAILYPRN PRN [place] CONSTIPATION; Start 10/06/18 at 16:30 Bupropion HCl (Wellbutrin Sr) 100 mg DAILY PO Last administered on 10/21/18 08:24; Start 10/07/18 at 09:00 Dextrose (Dextrose 50%) 25 ml ASDIRECTED PRN IV SEE LABEL COMMENTS; Start 10/06/18 at 16:45 Escitalopram Oxalate (Lexapro) 20 mg DAILY PO Last administered on 10/21/18 08:23; Start 10/07/18 at 09:00 Famotidine (Pepcid) 20 mg DAILY PO Last administered on 10/21/18 08:23; Start 10/07/18 at 09:00 Ferrous Gluconate (Fergon) 324 mg DAILY PO Last administered on 10/21/18 08:23; Start 10/07/18 at 09:00 Furosemide (Lasix) 20 mg DAILY PO Last administered on 10/17/18 08:54; Start 10/11/18 at 09:00; Stop 10/17/18 at 09:01; Status DC Furosemide (Lasix) 20 mg DAILY PO Last administered on 10/21/18 08:24; Start 10/18/18 at 09:00 Glucagon (Glucagon) 1 mg ASDIRECTED PRN SC SEE LABEL COMMENTS; Start 10/06/18 at 16:45 Glucose (Glucose) 16 GM ASDIRECTED PRN PO SEE LABEL COMMENTS; Start 10/06/18 at 16:45 Home Med (Med Rec Complete!) ASDIRECTED XX ; Start 10/06/18 at 17:30; Stop 10/06/18 at 17:30; Status DC Hydralazine HCl (Apresoline) 12.5 mg Q8H PO Last administered on 10/21/18at 06:25; Start 10/13/18 at 14:00 Insulin Detemir (Levemir Insulin) 5 units QHS SC Last administered on 10/20/18at 21:57; Start 10/15/18 at 21:00 Insulin Detemir (Levemir Insulin) 45 units DAILY SC Last administered on 10/12/18at 09:07; Start 10/07/18 at 09:00; Stop 10/12/18 at 16:18; Status DC Insulin Human Lispro (HumaLOG INSULIN) SEE PROTOCOL TABLE AC SC Last administered on 10/21/18at 08:25; Start 10/06/18 at 17:30 Insulin Human Lispro (HumaLOG INSULIN) See Protocol Table QHS SC ; Start 10/06/18 at 21:00 Lactulose (Cephulac) 30 ml DAILY PO Last administered on 10/13/18at 08:15; St art 10/07/18 at 09:00 Magnesium Hydroxide (Milk Of Magnesia) 30 ml DAILYPRN PRN PO CONSTIPATION; Start 10/06/18 at 16:30 Metoprolol Succinate (TopROL XL) 75 mg DAILY PO Last administered on 10/20/18at 09:54; Start 10/19/18 at 09:00 Metoprolol Succinate (TopROL XL) 100 mg DAILY PO Last administered on 10/17/18at 08:55; Start 10/07/18 at 09:00; Stop 10/18/18 at 10:48; Status DC Miscellaneous (Unresolved Clarification Entry) SEE LABEL COMMENTS DAILY XX ; Start 10/12/18 at 09:00; Stop 10/13/18 at 07:15; Status DC Miscellaneous (Unresolved Clarification Entry) SEE LABEL COMMENTS DAILY XX ; Start 10/13/18 at 09:00; Stop 10/13/18 at 09:35; Status DC Miscellaneous (Unresolved Clarification Entry) SEE LABEL COMMENTS DAILY XX ; Start 10/14/18 at 09:00; Stop 10/14/18 at 09:00; Status DC Pregabalin (Lyrica) 150 mg BID PO Last administered on 10/21/18 08:24; Start 10/06/18 at 21:00 Senna/Docusate Sodium (Senokot S) 1 tab BID PO Last administered on 10/19/18 20:52; Start 10/06/18 at 21:00 Tamsulosin HCl (Flomax) 0.4 mg DAILY PO Last administered on 10/21/18 08:23; Start 10/07/18 at 09:00 Vitamin D (Vitamin D) 1,000 units DAILY PO Last administered on 10/21/18 08:23; Start 10/07/18 at 09:00 KARLA ULLOA MD Oct 21, 2018 12:04
--- NOTE | 2018-10-21 13:12 | IPNPDOC ---
Date Seen The patient was seen on 10/21/18. Progress Note HPI: Mr. Mills is a 67-year-old who reported being in his usual state of health until the evening of admission when he was visiting his daughter at her place of employment when he slipped and fell on his right hip to the ground. He subsequently felt pain and was unable to raise off the ground. Activated EMS and presented to the emergency room. Imaging revealing right intertrochanteric femoral fracture. Orthopedics was consulted. S/P right hip trochanteric fixation nailing (TFN) for intertrochanteric hip fracture. Pt was transferred to ARU, Dr Albarran, 10/06/18. Pt has been OOB with therapy today and states he has been feeling well. Sitting in chair. Denies any fevers, chills, weakness, fatigue, Headache, Chest Pain, Shortness of breath, cough, palpitations, abdominal pain, N/V/D or changes in bowel or bladder habits. PMHx: DM HTN HLD CAD GERD CHF TTE 09/28/18 EF 65%, DD. PSHX: Cholecystectomy. CAD with stent placement 2000. PE: GEN: 67yoM, appears stated age. No acute distress. Alert and oriented x 3. Pleasant, interactive. HEENT: Normocephalic, atraumatic. Sclera are nonicteric. Conjunctiva without injection. Moist mucous membranes. CHEST: Regular rate and rhythm, +S1, +S2 LUNGS: Clear to auscultation bilaterally. No wheezes, rales, or rhonchi. ABD: Round, soft, non-tender, non-distended. +Bowel sounds throughout. No rebound or guarding. EXT: tr lower extremity edema appreciated B/L distal pretib areas/pedal. TEDS in place. SKIN: [place], dry, warm. No rashes. NEURO: Alert and oriented x 3. Cranial nerves III-XII are intact. No focal deficits appreciated. A&P: Mr. Mills is a 67-year-old who reported being in his usual state of healt h until the evening of admission when he was visiting his daughter at her place of employment when he slipped and fell on his right hip to the ground. He subsequently felt pain and was unable to raise off the ground. Activated EMS and presented to the emergency room. Imaging revealing right intertrochanteric femoral fracture. Orthopedics was consulted. S/P right hip trochanteric fixation nailing (TFN) for intertrochanteric hip fracture. Pt was transferred to ARU, Dr Albarran, 10/06/18. 1. Mechanical fall resulting in right intertrochanteric femur fracture/IM nail right hip on 09/30/2018. Management as per Orthopedics. PT/OT/ST as per ARU Pain control as per ARU Bowel care as per ARU Disposition as per ARU DVT px. Continue Eliquis 2.5mg by mouth twice daily for anticoagulation. 2. 11. HTN/HHD/LVH EF 65%/DD. Continue with Lasix 20 mg daily. Hydralazine 12.5 mg Q8 added for elevated BP. SCr at baseline. Monitor. BMP 10/22. 3. Chronic kidney disease, stage III: Baseline 1.6-1.8 Continue Lasix 20 mg po daily. Monitor I/O. Monitor daily wt 1800cc FR BMP 10/22 4. Hematuria: Status post Hdez catheter. Follow-up urinalysis has normalized. Could consider outpatient follow-up with urology. 5. Iron deficiency Anemia Started iron supplement daily with vitamin C. Peripheral smear Normocytic anemia; patient is status-post hip surgery. No blasts identified. Minimal thrombocytopenia with normal platelet morphology. Folate 8.7. Vitamin B12 level WNL. CBC 10/22/18. 6. Diabetes mellitus with hyperglycemia and neuropathy: CC diet. Pt readily admits he follows diet much differently while here. Levemir 5 u HS. SSI. Lyrica Monitor BS. 7. Recent diagnosis of atrial fibrillation. Continue Eliquis, metoprolol, and amiodarone. 8. Depression: Continue Lexapro. 9. Gastroesophageal reflux disease: Continue famotidine and omeprazole. 10. Benign prostatic hyperplasia: Continue Flomax. 11. Coronary artery disease status-post cardiac stenting: Follows with Dr. Johnson. Status-post stenting in 2000. 12. History of TIA/CVA: Residual left-sided weakness. Monitor. VS, I&O, 24H, Fishbone Vital Signs/I&O Vital Signs Date Time Temp Pulse Resp B/P (MAP) Pulse Ox O2 Delivery O2 Flow Rate FiO2 10/21/18 12:27 20 10/21/18 08:26 61 150/70 2/7/19 06:00 99.3 91 I&O- Last 24 Hours up to 6 AM 10/21/18 06:00 Intake Total 1200 ml Output Total 625 ml Balance 575 ml Laboratory Data 24H LABS Laboratory Tests 2 10/20/18 17:33: Bedside Glucose (Misc Panel) 141H 10/20/18 20:16: Bedside Glucose (Misc Panel) 205H 10/21/18 07:10: Bedside Glucose (Misc Panel) 186H 10/21/18 11:30: Bedside Glucose (Misc Panel) 128H Sharron Cartwright Oct 21, 2018 13:12
[2018-10-21 14:00] VITALS: BP 128/63
[2018-10-21 22:00] VITALS: BP 138/66
[2018-10-21] MEDS: ATORVASTATIN 10 MG TAB PO SCH (22:07)
[2018-10-21] MEDS: LEVEMIR (INSULIN DETEMIR) 1 UNITS/0.01ML SC SCH (22:08)
[2018-10-22] MEDS: NORCO, ANEXSIA 5/325MG TABLET (HYDROcodone/ACETAMINOPHEN) PO PRN ×3 (06:43→21:19)
[2018-10-22] MEDS: **hydrALAZINE HCL** 25 MG TAB PO SCH ×3 (06:44→21:16)
[2018-10-22 06:45] VITALS: BP 120/80
[2018-10-22 07:39] LABS: BASO % 0.4 % (0.0-1.0); EOS # 0.2 10^3/uL (0.0-0.50); HEMATOCRIT 31.6 % (42.0-52.0); HEMOGLOBIN 9.8 g/dl (13.5-17.5); LYMPH # 0.9 10^3/uL (1.5-4.5); LYMPH % 18.8 % (24.0-44.0); MEAN CORPUSCULAR HEMOGLOBIN 30.2 pg (27.0-33.0); MEAN CORPUSCULAR VOLUME 97.5 fl (80.0-96.0); MONO # 0.4 10^3/uL (0.0-0.8); MONO % 7.6 % (0.0-5.0); NEUTROPHILS # 3.5 10^3/uL (1.8-7.7); NEUTROPHILS % 69.8 % (36.0-66.0); PLATELET COUNT, AUTOMATED 167 10^3/uL (150-450); RED BLOOD COUNT 3.24 10^6/uL (4.30-6.10)
[2018-10-22 07:58] LABS: CALCIUM LEVEL 8.7 MG/DL (8.8-10.2); CREATININE FOR GFR 1.7 MG/DL (0.70-1.30); GLOMERULAR FILTRATION RATE 42.8 (>49); POTASSIUM SERUM 4.9 MEQ/L (3.5-5.1)
[2018-10-22] MEDS: METOPROLOL SUCC *XL* 25MG TAB (TopROL *XL*) PO SCH ×2 (08:12→08:43)
[2018-10-22] MEDS: VITAMIN D 1,000 INTERNATIONAL UNITS TABLET PO SCH (08:42)
[2018-10-22] MEDS: LACTULOSE 20 GM/30 ML SYRUP UD PO SCH ×3 (08:42→08:53)
[2018-10-22] MEDS: FUROSEMIDE 20 MG TAB PO SCH (08:42)
[2018-10-22] MEDS: FERROUS GLUCONATE 324 MG TAB PO SCH (08:43)
[2018-10-22] MEDS: TAMSULOSIN 0.4 MG CAP PO SCH (08:43)
[2018-10-22] MEDS: APIXABAN 2.5 MG TAB (ELIQUIS) PO SCH ×2 (08:43→21:16)
[2018-10-22] MEDS: buPROPion (WELLBUTRIN SR) 100 MG SR TAB PO SCH (08:43)
[2018-10-22] MEDS: ASCORBIC ACID 500 MG TAB PO SCH (08:43)
[2018-10-22] MEDS: FAMOTIDINE 20 MG TAB PO SCH (08:43)
[2018-10-22] MEDS: ESCITALOPRAM OXALATE 10 MG TAB (LEXAPRO) PO SCH (08:44)
[2018-10-22] MEDS: AMIODARONE 200 MG TAB (PACERONE) PO SCH (08:44)
[2018-10-22] MEDS: HumaLOG INSULIN (NovoLOG) PER UNIT SC SCH ×4 (08:44→21:00)
[2018-10-22] MEDS: PREGABALIN 75 MG CAP(LYRICA) PO SCH ×2 (08:44→21:14)
[2018-10-22] MEDS: SENOKOT S TAB PO SCH ×2 (08:45→21:16)
[2018-10-22 14:00] VITALS: BP 169/78
--- NOTE | 2018-10-22 15:24 | IPNPDOC ---
Date Seen The patient was seen on 10/22/18. Progress Note HPI: Mr. Mills is a 67-year-old who reported being in his usual state of health until the evening of admission when he was visiting his daughter at her place of employment when he slipped and fell on his right hip to the ground. He subsequently felt pain and was unable to raise off the ground. Activated EMS and presented to the emergency room. Imaging revealing right intertrochanteric femoral fracture. Orthopedics was consulted. S/P right hip trochanteric fixation nailing (TFN) for intertrochanteric hip fracture. Pt was transferred to ARU, Dr Albarran, 10/06/18. Pt states he is feeling stronger, no voiced complaints. Denies any fevers, chills, weakness, fatigue, Headache, Chest Pain, Shortness of breath, cough, palpitations, abdominal pain, N/V/D or changes in bowel or bladder habits. PMHx: DM HTN HLD CAD GERD CHF TTE 09/28/18 EF 65%, DD. PSHX: Cholecystectomy. CAD with stent placement 2000. PE: GEN: 67yoM, appears stated age. No acute distress. Alert and oriented x 3. Pleasant, interactive. HEENT: Normocephalic, atraumatic. Sclera are nonicteric. Conjunctiva without injection. Moist mucous membranes. CHEST: Regular rate and rhythm, +S1, +S2 LUNGS: Clear to auscultation bilaterally. No wheezes, rales, or rhonchi. ABD: Round, soft, non-tender, non-distended. +Bowel sounds throughout. No rebound or guarding. EXT: tr lower extremity edema appreciated B/L distal pretib areas/pedal. TEDS in place. SKIN: [place], dry, warm. No rashes. NEURO: Alert and oriented x 3. Cranial nerves III-XII are intact. No focal deficits appreciated. A&P: Mr. Mills is a 67-year-old who reported being in his usual state of health until the evening of admission when he was visiting his daughter at her place of employment when he slipped and fell on his right hip to the ground. He subsequently felt pain and was unable to raise off the ground. Activated EMS and presented to the emergency room. Imaging revealing right intertrochanteric femoral fracture. Orthopedics was consulted. S/P right hip trochanteric fixation nailing (TFN) for intertrochanteric hip fracture. Pt was transferred to ARU, Dr Albarran, 10/06/18. 1. Mechanical fall resulting in right intertrochanteric femur fracture/IM nail right hip on 09/30/2018. Management as per Orthopedics. PT/OT/ST as per ARU Pain control as per ARU Bowel care as per ARU Disposition as per ARU DVT px. Continue Eliquis 2.5mg by mouth twice daily for anticoagulation. 2. 11. HTN/HHD/LVH EF 65%/DD. Continue with Lasix 20 mg daily. Hydralazine 12.5 mg Q8. SCr at baseline, 1.70. Monitor. 3. Chronic kidney disease, stage III: Baseline 1.6-1.8 Continue Lasix 20 mg po daily. Monitor I/O. Monitor daily wt 1800cc FR Scr 1.70. 4. Hematuria: Status post Hdez catheter. Follow-up urinalysis has normalized. Could consider outpatient follow-up with urology. 5. Iron deficiency Anemia Started iron supplement daily with vitamin C. Peripheral smear Normocytic anemia; patient is status-post hip surgery. No blasts identified. Minimal thrombocytopenia with normal platelet morphology. Folate 8.7. Vitamin B12 level WNL. Hgb stable. 6. Diabetes mellitus with hyperglycemia and neuropathy: CC diet. Pt readily admits he follows diet much differently while here. Levemir 5 u HS. SSI. Lyrica Monitor BS. 7. Recent diagnosis of atrial fibrillation. Continue Eliquis, metoprolol, and amiodarone. 8. Depression: Continue Lexapro. 9. Gastroesophageal reflux disease: Continue famotidine and omeprazole. 10. Benign prostatic hyperplasia: Continue Flomax. 11. Coronary artery disease status-post cardiac stenting: Follows with Dr. Johnson. Status-post stenting in 2000. 12. History of TIA/CVA: Residual left-sided weakness. Monitor. VS, I&O, 24H, Fishbone Vital Signs/I&O Vital Signs Date Time Temp Pulse Resp B/P (MAP) Pulse Ox O2 Delivery O2 Flow Rate FiO2 10/22/18 14:57 16 10/22/18 14:27 169/78 10/22/18 08:43 64 10/22/18 06:45 97.9 94 I&O- Last 24 Hours up to 6 AM 10/22/18 06:00 Intake Total 720 ml Balance 720 ml Laboratory Data 24H LABS Laboratory Tests 2 10/21/18 16:38: Bedside Glucose (Misc Panel) 157H 10/21/18 22:13: Bedside Glucose (Misc Panel) 195H 10/22/18 07:14: Immature Granulocyte % (Auto) 0.4, White Blood Count 5.0, Red Blood Count 3.24L, Hemoglobin 9.8L, Hematocrit 31.6L, Mean Corpuscular Volume 97.5H, Mean Corpuscular Hemoglobin 30.2, Mean Corpuscular Hemoglobin Concent 31.0L, Red Cell Distribution Width 13.6, Platelet Count 167, Neutrophils (%) (Auto) 69.8H, Lymphocytes (%) (Auto) 18.8L, Monocytes (%) (Auto) 7.6H, Eosinophils (%) (Auto) 3.0, Basophils (%) (Auto) 0.4, Neutrophils # (Auto) 3.5, Lymphocytes # (Auto) 0.9L, Monocytes # (Auto) 0.4, Eosinophils # (Auto) 0.2, Basophils # (Auto) 0.0, Nucleated Red Blood Cells % (auto) 0.0, Anion Gap 4L, Glomerular Filtration Rate 42.8L, Blood Urea Nitrogen 53H, Creatinine 1.70H, Sodium Level 141, Potassium Level 4.9, Chloride Level 106, Carbon Dioxide Level 31, Calcium Level 8.7L 10/22/18 11:16: Bedside Glucose (Misc Panel) 139H CBC/BMP Laboratory Tests 10/22/18 07:14 Red Blood Count 3.24 L, Mean Corpuscular Volume 97.5 H, Mean Corpuscular Hemoglobin 30.2, Mean Corpuscular Hemoglobin Concent 31.0 L, Red Cell Distribut ion Width 13.6, Neutrophils (%) (Auto) 69.8 H, Lymphocytes (%) (Auto) 18.8 L, Monocytes (%) (Auto) 7.6 H, Eosinophils (%) (Auto) 3.0, Basophils (%) (Auto) 0.4, Neutrophils # (Auto) 3.5, Lymphocytes # (Auto) 0.9 L, Monocytes # (Auto) 0.4, Eosinophils # (Auto) 0.2, Basophils # (Auto) 0.0, Calcium Level 8.7 L Sharron Cartwright Oct 22, 2018 15:24
[2018-10-22] MEDS: ATORVASTATIN 10 MG TAB PO SCH (21:16)
[2018-10-22] MEDS: LEVEMIR (INSULIN DETEMIR) 1 UNITS/0.01ML SC SCH (21:17)
[2018-10-23] MEDS: **hydrALAZINE HCL** 25 MG TAB PO SCH ×3 (05:45→21:25)
[2018-10-23 06:00] VITALS: BP 150/82
[2018-10-23] MEDS: NORCO, ANEXSIA 5/325MG TABLET (HYDROcodone/ACETAMINOPHEN) PO PRN ×3 (06:26→21:27)
[2018-10-23 07:19] LABS: CALCIUM LEVEL 8.4 MG/DL (8.8-10.2); CREATININE FOR GFR 1.56 MG/DL (0.70-1.30); GLOMERULAR FILTRATION RATE 47.2 (>49); POTASSIUM SERUM 4.7 MEQ/L (3.5-5.1)
[2018-10-23] MEDS: METOPROLOL SUCC *XL* 25MG TAB (TopROL *XL*) PO SCH (09:00)
[2018-10-23] MEDS: FERROUS GLUCONATE 324 MG TAB PO SCH (09:00)
[2018-10-23] MEDS: LACTULOSE 20 GM/30 ML SYRUP UD PO SCH (09:00)
[2018-10-23] MEDS: VITAMIN D 1,000 INTERNATIONAL UNITS TABLET PO SCH (09:45)
[2018-10-23] MEDS: ESCITALOPRAM OXALATE 10 MG TAB (LEXAPRO) PO SCH (09:45)
[2018-10-23] MEDS: HumaLOG INSULIN (NovoLOG) PER UNIT SC SCH ×4 (09:45→21:00)
[2018-10-23] MEDS: SENOKOT S TAB PO SCH ×2 (09:45→21:25)
[2018-10-23] MEDS: TAMSULOSIN 0.4 MG CAP PO SCH (09:46)
[2018-10-23] MEDS: APIXABAN 2.5 MG TAB (ELIQUIS) PO SCH ×2 (09:46→21:25)
[2018-10-23] MEDS: FAMOTIDINE 20 MG TAB PO SCH (09:46)
[2018-10-23] MEDS: PREGABALIN 75 MG CAP(LYRICA) PO SCH ×2 (09:46→21:25)
[2018-10-23] MEDS: ASCORBIC ACID 500 MG TAB PO SCH (09:46)
[2018-10-23] MEDS: AMIODARONE 200 MG TAB (PACERONE) PO SCH (09:46)
[2018-10-23] MEDS: FUROSEMIDE 20 MG TAB PO SCH (09:46)
[2018-10-23] MEDS: buPROPion (WELLBUTRIN SR) 100 MG SR TAB PO SCH (09:46)
[2018-10-23 13:39] VITALS: BP 150/80
[2018-10-23 20:00] VITALS: BP 132/82
[2018-10-23] MEDS: LEVEMIR (INSULIN DETEMIR) 1 UNITS/0.01ML SC SCH (21:23)
[2018-10-23] MEDS: ATORVASTATIN 10 MG TAB PO SCH (21:23)
[2018-10-24] MEDS: **hydrALAZINE HCL** 25 MG TAB PO SCH ×3 (05:44→21:33)
[2018-10-24 06:00] VITALS: BP 129/65
[2018-10-24] MEDS: HumaLOG INSULIN (NovoLOG) PER UNIT SC SCH ×4 (08:48→21:00)
[2018-10-24] MEDS: FERROUS GLUCONATE 324 MG TAB PO SCH (08:49)
[2018-10-24] MEDS: VITAMIN D 1,000 INTERNATIONAL UNITS TABLET PO SCH (08:49)
[2018-10-24] MEDS: AMIODARONE 200 MG TAB (PACERONE) PO SCH (08:49)
[2018-10-24] MEDS: METOPROLOL SUCC *XL* 25MG TAB (TopROL *XL*) PO SCH (08:49)
[2018-10-24] MEDS: ESCITALOPRAM OXALATE 10 MG TAB (LEXAPRO) PO SCH (08:49)
[2018-10-24] MEDS: APIXABAN 2.5 MG TAB (ELIQUIS) PO SCH ×2 (08:49→21:33)
[2018-10-24] MEDS: FAMOTIDINE 20 MG TAB PO SCH (08:49)
[2018-10-24] MEDS: buPROPion (WELLBUTRIN SR) 100 MG SR TAB PO SCH (08:49)
[2018-10-24] MEDS: ASCORBIC ACID 500 MG TAB PO SCH (08:49)
[2018-10-24] MEDS: LACTULOSE 20 GM/30 ML SYRUP UD PO SCH (08:50)
[2018-10-24] MEDS: NORCO, ANEXSIA 5/325MG TABLET (HYDROcodone/ACETAMINOPHEN) PO PRN ×3 (08:50→21:35)
[2018-10-24] MEDS: TAMSULOSIN 0.4 MG CAP PO SCH (08:50)
[2018-10-24] MEDS: SENOKOT S TAB PO SCH ×2 (08:50→21:33)
[2018-10-24] MEDS: PREGABALIN 75 MG CAP(LYRICA) PO SCH ×2 (08:50→21:33)
[2018-10-24] MEDS: FUROSEMIDE 20 MG TAB PO SCH (08:50)
[2018-10-24 14:00] VITALS: BP 115/58
[2018-10-24 20:00] VITALS: BP 144/71
[2018-10-24] MEDS: ATORVASTATIN 10 MG TAB PO SCH (21:33)
[2018-10-24] MEDS: LEVEMIR (INSULIN DETEMIR) 1 UNITS/0.01ML SC SCH (21:34)
[2018-10-25] MEDS: NORCO, ANEXSIA 5/325MG TABLET (HYDROcodone/ACETAMINOPHEN) PO PRN ×3 (05:35→21:02)
[2018-10-25] MEDS: **hydrALAZINE HCL** 25 MG TAB PO SCH ×3 (05:35→21:01)
[2018-10-25] MEDS: AMIODARONE 200 MG TAB (PACERONE) PO SCH (08:39)
[2018-10-25] MEDS: HumaLOG INSULIN (NovoLOG) PER UNIT SC SCH ×4 (08:39→21:00)
[2018-10-25] MEDS: FERROUS GLUCONATE 324 MG TAB PO SCH (08:39)
[2018-10-25] MEDS: PREGABALIN 75 MG CAP(LYRICA) PO SCH ×2 (08:40→21:00)
[2018-10-25] MEDS: ESCITALOPRAM OXALATE 10 MG TAB (LEXAPRO) PO SCH (08:40)
[2018-10-25] MEDS: APIXABAN 2.5 MG TAB (ELIQUIS) PO SCH ×2 (08:40→21:00)
[2018-10-25] MEDS: TAMSULOSIN 0.4 MG CAP PO SCH (08:40)
[2018-10-25] MEDS: buPROPion (WELLBUTRIN SR) 100 MG SR TAB PO SCH (08:40)
[2018-10-25] MEDS: FAMOTIDINE 20 MG TAB PO SCH (08:40)
[2018-10-25] MEDS: METOPROLOL SUCC *XL* 25MG TAB (TopROL *XL*) PO SCH (08:40)
[2018-10-25] MEDS: SENOKOT S TAB PO SCH ×2 (08:41→21:00)
[2018-10-25] MEDS: LACTULOSE 20 GM/30 ML SYRUP UD PO SCH (08:41)
[2018-10-25] MEDS: ASCORBIC ACID 500 MG TAB PO SCH (08:41)
[2018-10-25] MEDS: FUROSEMIDE 20 MG TAB PO SCH (08:41)
[2018-10-25] MEDS: VITAMIN D 1,000 INTERNATIONAL UNITS TABLET PO SCH (08:48)
--- NOTE | 2018-10-25 12:03 | IPNPDOC ---
Date Seen The patient was seen on 10/25/18. Progress Note HPI: Mr. Mills is a 67-year-old who reported being in his usual state of health until the evening of admission when he was visiting his daughter at her place of employment when he slipped and fell on his right hip to the ground. He subsequently felt pain and was unable to raise off the ground. Activated EMS and presented to the emergency room. Imaging revealing right intertrochanteric femoral fracture. Orthopedics was consulted. S/P right hip trochanteric fixation nailing (TFN) for intertrochanteric hip fracture. Pt was transferred to ARU, Dr Albarran, 10/06/18. Pt reports no voiced complaints. OOB to chair. Denies any fevers, chills, weakness, fatigue, Headache, Chest Pain, Shortness of breath, cough, palpitations, abdominal pain, N/V/D or changes in bowel or bladder habits. PMHx: DM HTN HLD CAD GERD CHF TTE 09/28/18 EF 65%, DD. PSHX: Cholecystectomy. CAD with stent placement 2000. PE: GEN: 67yoM, appears stated age. No acute distress. Alert and oriented x 3. Pleasant, interactive. HEENT: Normocephalic, atraumatic. Sclera are nonicteric. Conjunctiva without injection. Moist mucous membranes. CHEST: Regular rate and rhythm, +S1, +S2 LUNGS: Clear to auscultation bilaterally. No wheezes, rales, or rhonchi. ABD: Round, soft, non-tender, non-distended. +Bowel sounds throughout. No rebound or guarding. EXT: tr lower extremity edema appreciated B/L distal pretib area. TEDS in place. SKIN: [place], dry, warm. No rashes. NEURO: Alert and oriented x 3. Cranial nerves III-XII are intact. No focal deficits appreciated. A&P: Mr. Mills is a 67-year-old who reported being in his usual state of health until the evening of admission when he was visiting his daughter at her place of employment when he slipped and fell on his right hip to the ground. He subsequently felt pain and was unable to raise off the ground. Activated EMS and presented to the emergency room. Imaging revealing right intertrochanteric femoral fracture. Orthopedics was consulted. S/P right hip trochanteric fixation nailing (TFN) for intertrochanteric hip fracture. Pt was transferred to ARU, Dr Albarran, 10/06/18. 1. Mechanical fall resulting in right intertrochanteric femur fracture/IM nail right hip on 09/30/2018. Management as per Orthopedics. PT/OT/ST as per ARU Pain control as per ARU Bowel care as per ARU Disposition as per ARU DVT px. Continue Eliquis 2.5mg by mouth twice daily for anticoagulation. 2. 11. HTN/HHD/LVH EF 65%/DD. Continue with Lasix 20 mg daily. Hydralazine 12.5 mg Q8. SCr at baseline, 1.56. Monitor. 3. Chronic kidney disease, stage III: Baseline 1.6-1.8 Continue Lasix 20 mg po daily. Monitor I/O. Monitor daily wt 1800cc FR 4. Hematuria: Status post Hdez catheter. Follow-up urinalysis has normalized. Could consider outpatient follow-up with urology. 5. Iron deficiency Anemia Started iron supplement daily with vitamin C. Peripheral smear Normocytic anemia; patient is status-post hip surgery. No blasts identified. Minimal thrombocytopenia with normal platelet morphology. Folate 8.7. Vitamin B12 level WNL. Hgb stable. 6. Diabetes mellitus with hyperglycemia and neuropathy: CC diet. Pt readily admits he follows diet much differently while here. Levemir 5 u HS. SSI. Lyrica Monitor BS. 7. Recent diagnosis of atrial fibrillation. Continue Eliquis, metoprolol, and amiodarone. 8. Depression: Continue Lexapro. 9. Gastroesophageal reflux disease: Continue famotidine and omeprazole. 10. Benign prostatic hyperplasia: Continue Flomax. 11. Coronary artery disease status-post cardiac stenting: Follows with Dr. Johnson. Status-post stenting in 2000. 12. History of TIA/CVA: Residual left-sided weakness. Monitor. VS, I&O, 24H, Fishbone Vital Signs/I&O Vital Signs Date Time Temp Pulse Resp B/P (MAP) Pulse Ox O2 Delivery O2 Flow Rate FiO2 10/25/18 08:40 50 138/69 10/25/18 06:08 16 10/25/18 06:00 97.0 92 I&O- Last 24 Hours up to 6 AM 10/25/18 06:00 Intake Total 1140 ml Output Total 1200 ml Balance -60 ml Laboratory Data 24H LABS Laboratory Tests 2 10/24/18 16:30: Bedside Glucose (Misc Panel) 159H 10/24/18 20:28: Bedside Glucose (Misc Panel) 152H 10/25/18 05:55: Bedside Glucose (Misc Panel) 140H 10/25/18 11:33: Bedside Glucose (Misc Panel) 114 Sharron Cartwright Oct 25, 2018 12:03
--- NOTE | 2018-10-25 13:46 | IPNPDOC ---
PM&R Progress Note DATE OF SERVICE: Oct 22, 2018 Clinical Research Physician Progress Note Subjective: Patient seen in PT reports he was able to get from his recliner into the wheelchair and to the toilet on his own. REVIEW OF SYSTEMS: The following is a completed review of systems and has been reviewed. Review of systems otherwise unremarkable. PAIN: Patient self reports right hip pain EYES: Negative for recent vision changes EARS, NOSE, & THROAT:no dysphagia or rhinorrhea CARDIOVASCULAR: +Afib, denies chest pain PULMONARY: Negative. Denies shortness of breath. GASTROINTESTINAL: Negative for constipation or diarrhea GENITOURINARY:+retention (improving) MUSCULOSKELETAL: right hip fracture NEUROLOGICAL: no tremor, no focal weakness, +diabetic neuropathy HEMATOLOGICAL:no ecchymosis SKIN: right hip incision PSYCHIATRIC: Unremarkable All other review of systems found to be negative. PHYSICAL EXAMINATION: VITAL SIGNS: Please see below. GENERAL: Pleasant and cooperative. No acute distress. HEENT: PERRL. Extraocular movements intact. Clear conjunctiva CARDIOVASCULAR: Irregular rate and rhythm. No murmurs, rubs, or gallops LUNGS: Clear to auscultation bilaterally. No wheezes. No rhonchi ABDOMEN: Soft, nontender, mildly distended. Positive bowel sounds. Normal active bowel sounds NEUROLOGICAL: Alert and oriented times three. Cranial nerves II through XII grossly intact. Sensation diminished in stocking pattern lower extremities EXTREMITIES: 5\5 strength bilateral upper extremities. 5-\5 strength ankle DF and EHL did not test right hip flexors or knee extensors due to pain 5-/5 strength in left lower extremity. SKIN: right hip incisions c/d/i, no surrounding induration or erythema +bilateral edema-improving ASSESSMENT:67-year-old M with past medical history of CAD sp stent, Afib, DM who presents status post fall with right hip fracture. PLAN: 1. 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 Ortho: s.p right hip ORIF, ortho consulted, WBAT 2. Neuro: pmh CVA/TIA, continue secondary stroke prevention measures- statin, ASA, and BP management 3. CArdio: pmh Afib on amiodarone and low dose Eliquis, chronic diastolic HF and HTN, continue home meds and monitor - medicine consulted 4. Endo: pmh DM, continue insulin therapy, will order nutrition consult per patient request to assist with weight loss- 5units long-acting qHS and continue premeal SS 6. Renal: elevated BUN and Staff Anesthetist s/p IVF, now on fluid restriction 1800cc/day, medicine recs appreciated 5. DVT ppx: on eliquis, TEDs 6. Pain: Tylenol and Manito prn, ICE TID 7. Psych: depression, continue Wellbutrin and Lexapro 8. resp: Incentive spirometry, monitor for cough-stable 9. Skin: bilateral LE edema, Lasix restarted, alyson wrap and elevate legs while in bed-improving 9. Dispo: 10/28/18 to home, progressing toward goals, will need to climb 14-16 stairs prior to discharge Allergies Coded Allergies: Latex (Verified Allergy, Unknown, Hives, 09/28/18) had reaction to rubber gloves-hives Penicillins (Verified Allergy, Unknown, 01/07/14) Vital Signs Vital Signs Date Time Temp Pulse Resp B/P (MAP) Pulse Ox O2 Delivery O2 Flow Rate FiO2 10/25/18 12:45 18 10/25/18 08:40 50 138/69 10/25/18 06:00 97.0 92 Laboratory Data Labs 24H Laboratory Tests 2 10/24/18 16:30: Bedside Glucose (Misc Panel) 159H 10/24/18 20:28: Bedside Glucose (Misc Panel) 152H 10/25/18 05:55: Bedside Glucose (Misc Panel) 140H 10/25/18 11:33: Bedside Glucose (Misc Panel) 114 Current Medications Current Medications Current Medications Acetaminophen (Tylenol Tab) 650 mg Q4HP PRN PO fever/MILD PAIN (PS 1-4); Start 10/06/18 at 16:30 Acetaminophen/ Hydrocodone Bitart ([place], Anexsia 5/325) 1 tab Q4HP PRN PO MODERATE PAIN (PS 5-7) Last administered on 10/11/18at 21:51; Start 10/06/18 at 16:30 Acetaminophen/ Hydrocodone Bitart (Man[place], Anexsia 5/325) 2 tab Q4HP PRN PO SEVERE PAIN (PS 8-10) Last administered on 10/25/18 12:45; Start 10/06/18 at 16:30 Amiodarone HCl (Pacerone, Cordarone) 200 mg DAILY PO Last administered on 10/25/18 08:39; Start 10/07/18 at 09:00 Apixaban (Eliquis) 2.5 mg BID PO Last administered on 10/25/18 08:40; Start 10/06/18 at 21:00 Ascorbic Acid (Vitamin C) 500 mg DAILY PO Last administered on 10/25/18 08:41; Start 10/07/18 at 09:00 Atorvastatin Calcium (Lipitor) 10 mg QHS PO Last administered on 10/24/18 21:33; Start 10/06/18 at 21:00 Bisacodyl (Dulcolax Suppository) 10 mg DAILYPRN PRN DE CONSTIPATION; Start 10/06/18 at 16:30 Bupropion HCl (Wellbutrin Sr) 100 mg DAILY PO Last administered on 10/25/18 08:40; Start 10/07/18 at 09:00 Dextrose (Dextrose 50%) 25 ml ASDIRECTED PRN IV SEE LABEL COMMENTS; Start 10/06/18 at 16:45 Escitalopram Oxalate (Lexapro) 20 mg DAILY PO Last administered on 10/25/18 08:40; Start 10/07/18 at 09:00 Famotidine (Pepcid) 20 mg DAILY PO Last administered on 10/25/18 08:40; Start 10/07/18 at 09:00 Ferrous Gluconate (Fergon) 324 mg DAILY PO Last administered on 10/25/18 08:39; Start 10/07/18 at 09:00 Furosemide (Lasix) 20 mg DAILY PO Last administered on 10/17/18 08:54; Start 10/11/18 at 09:00; Stop 10/17/18 at 09:01; Status DC Furosemide (Lasix) 20 mg DAILY PO Last administered on 10/25/18 08:41; Start 10/18/18 at 09:00 Glucagon (Glucagon) 1 mg ASDIRECTED PRN SC SEE LABEL COMMENTS; Start 10/06/18 at 16:45 Glucose (Glucose) 16 GM ASDIRECTED PRN PO SEE LABEL COMMENTS; Start 10/06/18 at 16:45 Home Med (Med Rec Complete!) ASDIRECTED XX ; Start 10/06/18 at 17:30; Stop 10/06/18 at 17:30; Status DC Hydralazine HCl (Apresoline) 12.5 mg Q8H PO Last administered on 10/25/18at 05:35; Start 10/13/18 at 14:00 Insulin Detemir (Levemir Insulin) 5 units QHS SC Last administered on 10/24/18at 21:34; Start 10/15/18 at 21:00 Insulin Detemir (Levemir Insulin) 45 units DAILY SC Last administered on 10/12/18at 09:07; Start 10/07/18 at 09:00; Stop 10/12/18 at 16:18; Status DC Insulin Human Lispro (HumaLOG INSULIN) SEE PROTOCOL TABLE AC SC Last administered on 10/25/18at 12:44; Start 10/06/18 at 17:30 Insulin Human Lispro (HumaLOG INSULIN) See Protocol Table QHS SC ; Start 10/06/18 at 21:00 Lactulose (Cephulac) 30 ml DAILY PO Last administered on 10/13/18at 08:15; Start 10/07/18 at 09:00 Magnesium Hydroxide (Milk Of Magnesia) 30 ml DAILYPRN PRN PO CONSTIPATION; Start 10/06/18 at 16:30 Metoprolol Succinate (TopROL XL) 75 mg DAILY PO Last administered on 10/25/18at 08:40; Start 10/19/18 at 09:00 Metoprolol Succinate (TopROL XL) 100 mg DAILY PO Last administered on 10/17/18at 08:55; Start 10/07/18 at 09:00; Stop 10/18/18 at 10:48; Status DC Miscellaneous (Unresolved Clarification Entry) SEE LABEL COMMENTS DAILY XX ; Start 10/12/18 at 09:00; Stop 10/13/18 at 07:15; Status DC Miscellaneous (Unresolved Clarification Entry) SEE LABEL COMMENTS DAILY XX ; Start 10/13/18 at 09:00; Stop 10/13/18 at 09:35; Status DC Miscellaneous (Unresolved Clarification Entry) SEE LABEL COMMENTS DAILY XX ; Start 10/14/18 at 09:00; Stop 10/14/18 at 09:00; Status DC Miscellaneous (Unresolved Clarification Entry) SEE LABEL COMMENTS DAILY XX Last administered on 10/24/18 11:46; Start 10/24/18 at 09:00; Stop 10/24/18 at 14:58; Status DC Pregabalin (Lyrica) 150 mg BID PO Last administered on 10/25/18 08:40; Start 10/06/18 at 21:00 Senna/Docusate Sodium (Senokot S) 1 tab BID PO Last administered on 10/24/18at 21:33; Start 10/06/18 at 21:00 Tamsulosin HCl (Flomax) 0.4 mg DAILY PO Last administered on 10/25/18 08:40; Start 10/07/18 at 09:00 Vitamin D (Vitamin D) 1,000 units DAILY PO Last administered on 10/25/18at 08 :48; Start 10/07/18 at 09:00 KARLA ULLOA MD Oct 25, 2018 13:46
[2018-10-25 14:00] VITALS: BP 116/55
[2018-10-25 21:00] VITALS: BP 167/71
[2018-10-25] MEDS: LEVEMIR (INSULIN DETEMIR) 1 UNITS/0.01ML SC SCH (21:00)
[2018-10-25] MEDS: ATORVASTATIN 10 MG TAB PO SCH (21:00)
[2018-10-26] MEDS: **hydrALAZINE HCL** 25 MG TAB PO SCH ×3 (05:48→21:20)
[2018-10-26 06:00] VITALS: BP 135/68
[2018-10-26 07:03] LABS: HEMOGLOBIN 9.1 g/dl (13.5-17.5); MEAN CORPUSCULAR HEMOGLOBIN 29.7 pg (27.0-33.0); MEAN CORPUSCULAR HGB CONC 30.3 g/dl (32.0-36.5); PLATELET COUNT, AUTOMATED 145 10^3/uL (150-450); RED BLOOD COUNT 3.06 10^6/uL (4.30-6.10); WHITE BLOOD COUNT 4.4 10^3/uL (4.0-10.0)
[2018-10-26 07:31] LABS: CALCIUM LEVEL 7.8 MG/DL (8.8-10.2); CREATININE FOR GFR 1.84 MG/DL (0.70-1.30); POTASSIUM SERUM 4.7 MEQ/L (3.5-5.1)
[2018-10-26] MEDS: METOPROLOL SUCC *XL* 25MG TAB (TopROL *XL*) PO SCH (08:33)
[2018-10-26] MEDS: HumaLOG INSULIN (NovoLOG) PER UNIT SC SCH ×4 (08:33→20:10)
[2018-10-26] MEDS: ASCORBIC ACID 500 MG TAB PO SCH (08:34)
[2018-10-26] MEDS: FAMOTIDINE 20 MG TAB PO SCH (08:34)
[2018-10-26] MEDS: FUROSEMIDE 20 MG TAB PO SCH (08:34)
[2018-10-26] MEDS: ESCITALOPRAM OXALATE 10 MG TAB (LEXAPRO) PO SCH (08:34)
[2018-10-26] MEDS: TAMSULOSIN 0.4 MG CAP PO SCH (08:34)
[2018-10-26] MEDS: buPROPion (WELLBUTRIN SR) 100 MG SR TAB PO SCH (08:34)
[2018-10-26] MEDS: VITAMIN D 1,000 INTERNATIONAL UNITS TABLET PO SCH (08:34)
[2018-10-26] MEDS: PREGABALIN 75 MG CAP(LYRICA) PO SCH ×2 (08:34→20:10)
[2018-10-26] MEDS: FERROUS GLUCONATE 324 MG TAB PO SCH (08:34)
[2018-10-26] MEDS: NORCO, ANEXSIA 5/325MG TABLET (HYDROcodone/ACETAMINOPHEN) PO PRN ×3 (08:35→20:14)
[2018-10-26] MEDS: AMIODARONE 200 MG TAB (PACERONE) PO SCH (08:35)
[2018-10-26] MEDS: APIXABAN 2.5 MG TAB (ELIQUIS) PO SCH ×2 (08:35→20:10)
[2018-10-26] MEDS: SENOKOT S TAB PO SCH ×2 (08:36→20:10)
[2018-10-26] MEDS: LACTULOSE 20 GM/30 ML SYRUP UD PO SCH (08:36)
--- NOTE | 2018-10-26 11:58 | IPNPDOC ---
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 REVIEW OF SYSTEMS: The following is a completed review of systems and has been reviewed. Review of systems otherwise unremarkable. PAIN: Patient self reports right hip pain EYES: Negative for recent vision changes EARS, NOSE, & THROAT:no dysphagia or rhinorrhea CARDIOVASCULAR: +Afib, denies chest pain PULMONARY: Negative. Denies shortness of breath. GASTROINTESTINAL: Negative for constipation or diarrhea GENITOURINARY:+retention (improving) MUSCULOSKELETAL: right hip fracture NEUROLOGICAL: no tremor, no focal weakness, +diabetic neuropathy HEMATOLOGICAL:no ecchymosis SKIN: right hip incision PSYCHIATRIC: Unremarkable All other review of systems found to be negative. PHYSICAL EXAMINATION: VITAL SIGNS: Please see below. GENERAL: Pleasant and cooperative. No acute distress. HEENT: PERRL. Extraocular movements intact. Clear conjunctiva CARDIOVASCULAR: Irregular rate and rhythm. No murmurs, rubs, or gallops LUNGS: Clear to auscultation bilaterally. No wheezes. No rhonchi ABDOMEN: Soft, nontender, mildly distended. Positive bowel sounds. Normal active bowel sounds NEUROLOGICAL: Alert and oriented times three. Cranial nerves II through XII grossly intact. Sensation diminished in stocking pattern lower extremities EXTREMITIES: 5\5 strength bilateral upper extremities. 5-\5 strength ankle DF and EHL did not test right hip flexors or knee extensors due to pain 5-/5 strength in left lower extremity. SKIN: right hip incisions c/d/i, no surrounding induration or erythema +bilateral edema-improving ASSESSMENT:67-year-old M with past medical history of CAD sp stent, Afib, DM who presents status post fall with right hip fracture. PLAN: 1. Rehab: OT, OT assess for DME, able to ambulate further RW, will work on Mod- I bed to commode transfers, will continue to focus on stairs, nearly ready for room privileges 2. Ortho: s.p right hip ORIF, ortho consulted, WBAT 2. Neuro: pmh CVA/TIA, continue secondary stroke prevention measures- statin, ASA, and BP management 3. CArdio: pmh Afib on amiodarone and low dose Eliquis, chronic diastolic HF and HTN, continue home meds and monitor - medicine consulted 4. Endo: pmh DM, continue insulin therapy, will order nutrition consult per patient request to assist with weight loss- 5units long-acting qHS and continue premeal SS 6. 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 DVT ppx: on eliquis, TEDs 6. Pain: Tylenol and [place] prn, ICE TID 7. Psych: depression, continue Wellbutrin and Lexapro 8. resp: Incentive spirometry, monitor for cough-stable 9. Skin: bilateral LE edema, Lasix restarted, alyson wrap and elevate legs while in bed-improving, will d/c tomorrow 9. Dispo: 10/28/18 to home, progressing toward goals, will need to climb 14-16 stairs prior to discharge Allergies Coded Allergies: Latex (Verified Allergy, Unknown, Hives, 09/28/18) had reaction to rubber gloves-hives Penicillins (Verified Allergy, Unknown, 01/07/14) Vital Signs Vital Signs Date Time Temp Pulse Resp B/P (MAP) Pulse Ox O2 Delivery O2 Flow Rate FiO2 10/26/18 08:35 18 10/26/18 08:33 50 135/68 10/26/18 06:00 97.0 92 Laboratory Data CBC/BMP Laboratory Tests 10/26/18 06:39 Red Blood Count 3.06 L, Mean Corpuscular Volume 98.0 H, Mean Corpuscular Hemoglobin 29.7, Mean Corpuscular Hemoglobin Concent 30.3 L, Red Cell Distribution Width 13.7, Calcium Level 7.8 L Labs 24H Laboratory Tests 2 10/25/18 16:38: Bedside Glucose (Misc Panel) 133H 10/25/18 19:59: Bedside Glucose (Misc Panel) 181H 10/26/18 05:46: Bedside Glucose (Misc Panel) 144H 10/26/18 06:39: Nucleated Red Blood Cells % (auto) 0.0, Anion Gap 4L, Glomerular Filtration Rate 39.0L, Blood Urea Nitrogen 43H, Creatinine 1.84H, Sodium Level 139, Potassium Level 4.7, Chloride Level 105, Carbon Dioxide Level 30, Calcium Level 7.8L Current Medications Current Medications Current Medications Acetaminophen (Tylenol Tab) 650 mg Q4HP PRN PO fever/MILD PAIN (PS 1-4); Start 10/06/18 at 16:30 Acetaminophen/ Hydrocodone Bitart ([place], Anexsia 5/325) 1 tab Q4HP PRN PO MODERATE PAIN (PS 5-7) Last administered on 10/11/18 21:51; Start 10/06/18 at 16:30 Acetaminophen/ Hydrocodone Bitart ([place], [place]nex[place]ia 5/325) 2 tab Q4HP PRN PO SEVERE PAIN (PS 8-10) Last administered on 10/26/18 08:35; Start 10/06/18 at 16:30 Amiodarone HCl (Pacerone, Cordarone) 200 mg DAILY PO Last administered on 10/26/18 08:35; Start 10/07/18 at 09:00 Apixaban (Eliquis) 2.5 mg BID PO Last administered on 10/26/18 08:35; Start 10/06/18 at 21:00 Ascorbic Acid (Vitamin C) 500 mg DAILY PO Last administered on 10/26/18 08:34; Start 10/07/18 at 09:00 Atorvastatin Calcium (Lipitor) 10 mg QHS PO Last administered on 10/25/18 21:00; Start 10/06/18 at 21:00 Bisacodyl (Dulcolax Suppository) 10 mg DAILYPRN PRN [place] CONSTIPATION; Start 10/06/18 at 16:30 Bupropion HCl (Wellbutrin Sr) 100 mg DAILY PO Last administered on 10/26/18 08:34; Start 10/07/18 at 09:00 Dextrose (Dextrose 50%) 25 ml ASDIRECTED PRN IV SEE LABEL COMMENTS; Start 10/06/18 at 16:45 Escitalopram Oxalate (Lexapro) 20 mg DAILY PO Last administered on 10/26/18 08:34; Start 10/07/18 at 09:00 Famotidine (Pepcid) 20 mg DAILY PO Last administered on 10/26/18 08:34; Start 10/07/18 at 09:00 Ferrous Gluconate (Fergon) 324 mg DAILY PO Last administered on 10/26/18 08:34; Start 10/07/18 at 09:00 Furosemide (Lasix) 20 mg DAILY PO Last administered on 2/3/19at 08:54; Start 10/11/18 at 09:00; Stop 10/17/18 at 09:01; Status DC Furosemide (Lasix) 20 mg DAILY PO Last administered on 10/26/18at 08:34; Start 10/18/18 at 09:00; Stop 10/26/18 at 09:53; Status DC Glucagon (Glucagon) 1 mg ASDIRECTED PRN SC SEE LABEL COMMENTS; Start 10/06/18 at 16:45 Glucose (Glucose) 16 GM ASDIRECTED PRN PO SEE LABEL COMMENTS; Start 10/06/18 at 16:45 Home Med (Med Rec Complete!) ASDIRECTED XX ; Start 10/06/18 at 17:30; Stop 10/06/18 at 17:30; Status DC Hydralazine HCl (Apresoline) 12.5 mg Q8H PO Last administered on 10/26/18at 05:48; Start 10/13/18 at 14:00 Insulin Detemir (Levemir Insulin) 5 units QHS SC Last administered on 10/25/18at 21:00; Start 10/15/18 at 21:00 Insulin Detemir (Levemir Insulin) 45 units DAILY SC Last administered on 10/12/18at 09:07; Start 10/07/18 at 09:00; Stop 10/12/18 at 16:18; Status DC Insulin Human Lispro (HumaLOG INSULIN) SEE PROTOCOL TABLE AC SC Last administered on 10/26/18at 08:33; Start 10/06/18 at 17:30 Insulin Human Lispro (HumaLOG INSULIN) See Protocol Table QHS SC ; Start 10/06/18 at 21:00 Lactulose (Cephulac) 30 ml DAILY PO Last administered on 10/13/18at 08:15; Start 10/07/18 at 09:00 Magnesium Hydroxide (Milk Of Magnesia) 30 ml DAILYPRN PRN [place] CONSTIPATION; Start 10/06/18 at 16:30 Metoprolol Succinate (TopROL XL) 75 mg DAILY PO Last administered on 10/26/18at 08:33; Start 10/19/18 at 09:00 Metoprolol Succinate (TopROL XL) 100 mg DAILY PO Last administered on 10/17/18at 08:55; Start 10/07/18 at 09:00; Stop 10/18/18 at 10:48; Status DC Miscellaneous (Unresolved Clarification Entry) SEE LABEL COMMENTS DAILY XX ; Start 10/12/18 at 09:00; Stop 10/13/18 at 07:15; Status DC Miscellaneous (Unresolved Clarification Entry) SEE LABEL COMMENTS DAILY XX ; Start 10/13/18 at 09:00; Stop 10/13/18 at 09:35; Status DC Miscellaneous (Unresolved Clarification Entry) SEE LABEL COMMENTS DAILY XX ; Start 10/14/18 at 09:00; Stop 10/14/18 at 09:00; Status DC Miscellaneous (Unresolved Clarification Entry) SEE LABEL COMMENTS DAILY XX Last administered on 10/24/18at 11:46; Start 10/24/18 at 09:00; Stop 10/24/18 at 14:58; Status DC Pregabalin (Lyrica) 150 mg BID PO Last administered on 10/26/18at 08:34; Start 10/06/18 at 21:00 Senna/Docusate Sodium (Senokot S) 1 tab BID PO Last administered on 10/25/18at 21:00; Start 10/06/18 at 21:00 Tamsulosin HCl (Flomax) 0.4 mg DAILY PO Last administered on 10/26/18 08:34; Start 10/07/18 at 09:00 Vitamin D (Vitamin D) 1,000 units DAILY PO Last administered on 10/26/18 08:34; Start 10/07/18 at 09:00 KARLA ULLOA MD Oct 26, 2018 11:58
--- NOTE | 2018-10-26 11:59 | IPNPDOC ---
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 REVIEW OF SYSTEMS: The following is a completed review of systems and has been reviewed. Review of systems otherwise unremarkable. PAIN: Patient self reports right hip pain EYES: Negative for recent vision changes EARS, NOSE, & THROAT:no dysphagia or rhinorrhea CARDIOVASCULAR: +Afib, denies chest pain PULMONARY: Negative. Denies shortness of breath. GASTROINTESTINAL: Negative for constipation or diarrhea GENITOURINARY:+retention (improving) MUSCULOSKELETAL: right hip fracture NEUROLOGICAL: no tremor, no focal weakness, +diabetic neuropathy HEMATOLOGICAL:no ecchymosis SKIN: right hip incision PSYCHIATRIC: Unremarkable All other review of systems found to be negative. PHYSICAL EXAMINATION: VITAL SIGNS: Please see below. GENERAL: Pleasant and cooperative. No acute distress. HEENT: PERRL. Extraocular movements intact. Clear conjunctiva CARDIOVASCULAR: Irregular rate and rhythm. No murmurs, rubs, or gallops LUNGS: Clear to auscultation bilaterally. No wheezes. No rhonchi ABDOMEN: Soft, nontender, mildly distended. Positive bowel sounds. Normal active bowel sounds NEUROLOGICAL: Alert and oriented times three. Cranial nerves II through XII grossly intact. Sensation diminished in stocking pattern lower extremities EXTREMITIES: 5\5 strength bilateral upper extremities. 5-\5 strength ankle DF and EHL did not test right hip flexors or knee extensors due to pain 5-/5 strength in left lower extremity. SKIN: right hip incisions c/d/i, no surrounding induration or erythema +bilateral edema-improving ASSESSMENT:67-year-old M with past medical history of CAD sp stent, Afib, DM who presents status post fall with right hip fracture. PLAN: 1. Rehab: OT, OT assess for DME, able to ambulate further RW, will work on Mod- I bed to commode transfers, will continue to focus on stairs, nearly ready for room privileges 2. Ortho: s.p right hip ORIF, ortho consulted, WBAT 2. Neuro: pmh CVA/TIA, continue secondary stroke prevention measures- statin, ASA, and BP management 3. CArdio: pmh Afib on amiodarone and low dose Eliquis, chronic diastolic HF and HTN, continue home meds and monitor - medicine consulted 4. Endo: pmh DM, continue insulin therapy, will order nutrition consult per patient request to assist with weight loss- 5units long-acting qHS and continue premeal SS 6. 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 DVT ppx: on eliquis, TEDs 6. Pain: Tylenol and [place] prn, ICE TID 7. Psych: depression, continue Wellbutrin and Lexapro 8. resp: Incentive spirometry, monitor for cough-stable 9. Skin: bilateral LE edema, s/p Lasix , alyson wrap and elevate legs while in bed- improving 9. Dispo: 10/28/18 to home, progressing toward goals, will need to climb 14-16 stairs prior to discharge Allergies Coded Allergies: Latex (Verified Allergy, Unknown, Hives, 09/28/18) had reaction to rubber gloves-hives Penicillins (Verified Allergy, Unknown, 01/07/14) Vital Signs Vital Signs Date Time Temp Pulse Resp B/P (MAP) Pulse Ox O2 Delivery O2 Flow Rate FiO2 10/26/18 08:35 18 10/26/18 08:33 50 135/68 10/26/18 06:00 97.0 92 Laboratory Data CBC/BMP Laboratory Tests 10/26/18 06:39 Red Blood Count 3.06 L, Mean Corpuscular Volume 98.0 H, Mean Corpuscular Hemoglobin 29.7, Mean Corpuscular Hemoglobin Concent 30.3 L, Red Cell Distribution Width 13.7, Calcium Level 7.8 L Labs 24H Laboratory Tests 2 10/25/18 16:38: Bedside Glucose (Misc Panel) 133H 10/25/18 19:59: Bedside Glucose (Misc Panel) 181H 10/26/18 05:46: Bedside Glucose (Misc Panel) 144H 10/26/18 06:39: Nucleated Red Blood Cells % (auto) 0.0, Anion Gap 4L, Glomerular Filtration Rate 39.0L, Blood Urea Nitrogen 43H, Creatinine 1.84H, Sodium Level 139, Potassium Level 4.7, Chloride Level 105, Carbon Dioxide Level 30, Calcium Level 7.8L Current Medications Current Medications Current Medications Acetaminophen (Tylenol Tab) 650 mg Q4HP PRN PO fever/MILD PAIN (PS 1-4); Start 10/06/18 at 16:30 Acetaminophen/ Hydrocodone Bitart ([place], Anexsia 5/325) 1 tab Q4HP PRN PO MODERATE PAIN (PS 5-7) Last administered on 10/11/18 21:51; Start 10/06/18 at 16:30 Acetaminophen/ Hydrocodone Bitart ([place], Anexsia 5/325) 2 tab Q4HP PRN PO SEVERE PAIN (PS 8-10) Last administered on 10/26/18 08:35; Start 10/06/18 at 16:30 Amiodarone HCl (Pacerone, Cordarone) 200 mg DAILY PO Last administered on 10/26/18 08:35; Start 10/07/18 at 09:00 Apixaban (Eliquis) 2.5 mg BID PO Last administered on 10/26/18 08:35; Start 10/06/18 at 21:00 Ascorbic Acid (Vitamin C) 500 mg DAILY PO Last administered on 10/26/18 08:34; Start 10/07/18 at 09:00 Atorvastatin Calcium (Lipitor) 10 mg QHS PO Last administered on 10/25/18 21:00; Start 10/06/18 at 21:00 Bisacodyl (Dulcolax Suppository) 10 mg DAILYPRN PRN [place] CONSTIPATION; Start 10/06/18 at 16:30 Bupropion HCl (Wellbutrin Sr) 100 mg DAILY PO Last administered on 10/26/18 08:34; Start 10/07/18 at 09:00 Dextrose (Dextrose 50%) 25 ml ASDIRECTED PRN IV SEE LABEL COMMENTS; Start 10/06/18 at 16:45 Escitalopram Oxalate (Lexapro) 20 mg DAILY PO Last administered on 10/26/18 08:34; Start 10/07/18 at 09:00 Famotidine (Pepcid) 20 mg DAILY PO Last administered on 10/26/18 08:34; Start 10/07/18 at 09:00 Ferrous Gluconate (Fergon) 324 mg DAILY PO Last administered on 10/26/18 08:34; Start 10/07/18 at 09:00 Furosemide (Lasix) 20 mg DAILY PO Last administered on 10/17/18 08:54; Start 10/11/18 at 09:00; Stop 2/3/19 at 09:01; Status DC Furosemide (Lasix) 20 mg DAILY PO Last administered on 10/26/18at 08:34; Start 10/18/18 at 09:00; Stop 10/26/18 at 09:53; Status DC Glucagon (Glucagon) 1 mg ASDIRECTED PRN SC SEE LABEL COMMENTS; Start 10/06/18 at 16:45 Glucose (Glucose) 16 GM ASDIRECTED PRN PO SEE LABEL COMMENTS; Start 10/06/18 at 16:45 Home Med (Med Rec Complete!) ASDIRECTED XX ; Start 10/06/18 at 17:30; Stop 10/06/18 at 17:30; Status DC Hydralazine HCl (Apresoline) 12.5 mg Q8H PO Last administered on 10/26/18at 05:48; Start 10/13/18 at 14:00 Insulin Detemir (Levemir Insulin) 5 units QHS SC Last administered on 10/25/18at 21:00; Start 10/15/18 at 21:00 Insulin Detemir (Levemir Insulin) 45 units DAILY SC Last administered on 10/12/18at 09:07; Start 10/07/18 at 09:00; Stop 10/12/18 at 16:18; Status DC Insulin Human Lispro (HumaLOG INSULIN) SEE PROTOCOL TABLE AC SC Last administered on 10/26/18at 08:33; Start 10/06/18 at 17:30 Insulin Human Lispro (HumaLOG INSULIN) See Protocol Table QHS SC ; Start 10/06/18 at 21:00 Lactulose (Cephulac) 30 ml DAILY PO Last administered on 10/13/18at 08:15; Start 10/07/18 at 09:00 Magnesium Hydroxide (Milk Of Magnesia) 30 ml DAILYPRN PRN PO CONSTIPATION; Start 10/06/18 at 16:30 Metoprolol Succinate (TopROL XL) 75 mg DAILY PO Last administered on 10/26/18at 08:33; Start 10/19/18 at 09:00 Metoprolol Succinate (TopROL XL) 100 mg DAILY PO Last administered on 10/17/18 08:55; Start 10/07/18 at 09:00; Stop 10/18/18 at 10:48; Status DC Miscellaneous (Unresolved Clarification Entry) SEE LABEL COMMENTS DAILY XX ; Start 10/12/18 at 09:00; Stop 10/13/18 at 07:15; Status DC Miscellaneous (Unresolved Clarification Entry) SEE LABEL COMMENTS DAILY XX ; Start 10/13/18 at 09:00; Stop 10/13/18 at 09:35; Status DC Miscellaneous (Unresolved Clarification Entry) SEE LABEL COMMENTS DAILY XX ; Start 10/14/18 at 09:00; Stop 10/14/18 at 09:00; Status DC Miscellaneous (Unresolved Clarification Entry) SEE LABEL COMMENTS DAILY XX Last administered on 10/24/18at 11:46; Start 10/24/18 at 09:00; Stop 10/24/18 at 14:58; Status DC Pregabalin (Lyrica) 150 mg BID PO Last administered on 10/26/18 08:34; Start 10/06/18 at 21:00 Senna/Docusate Sodium (Senokot S) 1 tab BID PO Last administered on 10/25/18at 21:00; Start 10/06/18 at 21:00 Tamsulosin HCl (Flomax) 0.4 mg DAILY PO Last administered on 10/26/18 08:34; Start 10/07/18 at 09:00 Vitamin D (Vitamin D) 1,000 units DAILY PO Last administered on 10/26/18 08:34; Start 10/07/18 at 09:00 KARLA ULLOA MD Oct 26, 2018 11:58
[2018-10-26 14:00] VITALS: BP 137/60
--- NOTE | 2018-10-26 14:20 | IPNPDOC ---
Date Seen The patient was seen on 10/26/18. Progress Note HPI: Mr. Mills is a 67-year-old who reported being in his usual state of health until the evening of admission when he was visiting his daughter at her place of employment when he slipped and fell on his right hip to the ground. He subsequently felt pain and was unable to raise off the ground. Activated EMS and presented to the emergency room. Imaging revealing right intertrochanteric femoral fracture. Orthopedics was consulted. S/P right hip trochanteric fixation nailing (TFN) for intertrochanteric hip fracture. Pt was transferred to ARU, Dr Albarran, 10/06/18. Pt reports no voiced complaints. OOB to chair. Lower extremity edema is improved. Lasix held today. Denies any fevers, chills, weakness, fatigue, Headache, Chest Pain, Shortness of breath, cough, palpitations, abdominal pain, N/V/D or changes in bowel or bladder habits. PMHx: DM HTN HLD CAD GERD CHF TTE 09/28/18 EF 65%, DD. PSHX: Cholecystectomy. CAD with stent placement 2000. PE: GEN: 67yoM, appears stated age. No acute distress. Alert and oriented x 3. Pleasant, interactive. HEENT: Normocephalic, atraumatic. Sclera are nonicteric. Conjunctiva without injection. Moist mucous membranes. CHEST: Regular rate and rhythm, +S1, +S2 LUNGS: Clear to auscultation bilaterally. No wheezes, rales, or rhonchi. ABD: Round, soft, non-tender, non-distended. +Bowel sounds throughout. No rebound or guarding. EXT: tr lower extremity edema appreciated B/L distal pretib area. TEDS in place. SKIN: [place], dry, warm. No rashes. NEURO: Alert and oriented x 3. Cranial nerves III-XII are intact. No focal deficits appreciated. A&P: Mr. Mills is a 67-year-old who reported being in his usual state of health until the evening of admission when he was visiting his daughter at her place of employment when he slipped and fell on his right hip to the ground. He subsequently felt pain and was unable to raise off the ground. Activated EMS and presented to the emergency room. Imaging revealing right intertrochanteric femoral fracture. Orthopedics was consulted. S/P right hip trochanteric fixation nailing (TFN) for intertrochanteric hip fracture. Pt was transferred to ARU, Dr Albarran, 10/06/18. 1. Mechanical fall resulting in right intertrochanteric femur fracture/IM nail right hip on 09/30/2018. Management as per Orthopedics. PT/OT/ST as per ARU Pain control as per ARU Bowel care as per ARU Disposition as per ARU DVT px. Continue Eliquis 2.5mg by mouth twice daily for anticoagulation. 2. 11. HTN/HHD/LVH EF 65%/DD. Lasix on hold. Hydralazine 12.5 mg Q8. Toprol XL SCr 1.84. Monitor. 3. Chronic kidney disease, stage III: Baseline 1.6-1.8 Lasix on hold. Creatinine noted to be 1.84 Monitor I/O. Monitor daily wt 1800cc FR 4. Hematuria: Status post Hdez catheter. Follow-up urinalysis has normalized. Could consider outpatient follow-up with urology. 5. Iron deficiency Anemia Started iron supplement daily with vitamin C. Peripheral smear Normocytic anemia; patient is status-post hip surgery. No blasts identified. Minimal thrombocytopenia with normal platelet morphology. Folate 8.7. Vitamin B12 level WNL. Hgb stable. 6. Diabetes mellitus with hyperglycemia and neuropathy: CC diet. Pt readily admits he follows diet much differently while here. Levemir 5 u HS. SSI. Lyrica Monitor BS. 7. Recent diagnosis of atrial fibrillation. Continue Eliquis, Toprol-XL, and amiodarone. 8. Depression: Continue Lexapro. 9. Gastroesophageal reflux disease: Continue famotidine and omeprazole. 10. Benign prostatic hyperplasia: Continue Flomax. 11. Coronary artery disease status-post cardiac stenting: Follows with Dr. Johnson. Status-post stenting in 2000. 12. History of TIA/CVA: Residual left-sided weakness. Monitor. VS, I&O, 24H, Fishbone Vital Signs/I&O Vital Signs Date Time Temp Pulse Resp B/P (MAP) Pulse Ox O2 Delivery O2 Flow Rate FiO2 10/26/18 13:55 137/60 10/26/18 13:54 18 10/26/18 08:33 50 10/26/18 06:00 97.0 92 I&O- Last 24 Hours up to 6 AM 10/26/18 06:00 Intake Total 1200 ml Balance 1200 ml Laboratory Data 24H LABS Laboratory Tests 2 10/25/18 16:38: Bedside Glucose (Misc Panel) 133H 10/25/18 19:59: Bedside Glucose (Misc Panel) 181H 10/26/18 05:46: Bedside Glucose (Misc Panel) 144H 10/26/18 06:39: Nucleated Red Blood Cells % (auto) 0.0, Anion Gap 4L, Glomerular Filtration Rate 39.0L, Blood Urea Nitrogen 43H, Creatinine 1.84H, Sodium Level 139, Potassium Level 4.7, Chloride Level 105, Carbon Dioxide Level 30, Calcium Level 7.8L CBC/BMP Laboratory Tests 10/26/18 06:39 Red Blood Count 3.06 L, Mean Corpuscular Volume 98.0 H, Mean Corpuscular Hemoglobin 29.7, Mean Corpuscular Hemoglobin Concent 30.3 L, Red Cell Distribution Width 13.7, Calcium Level 7.8 L Sharron Cartwright Oct 26, 2018 14:20
[2018-10-26 20:00] VITALS: BP 162/78
[2018-10-26] MEDS: ATORVASTATIN 10 MG TAB PO SCH (20:10)
[2018-10-26] MEDS: LEVEMIR (INSULIN DETEMIR) 1 UNITS/0.01ML SC SCH (20:10)
[2018-10-27] MEDS: **hydrALAZINE HCL** 25 MG TAB PO SCH ×3 (05:08→20:59)
[2018-10-27 06:00] VITALS: BP 135/55
[2018-10-27] MEDS: NORCO, ANEXSIA 5/325MG TABLET (HYDROcodone/ACETAMINOPHEN) PO PRN ×2 (07:31→12:38)
[2018-10-27] MEDS: HumaLOG INSULIN (NovoLOG) PER UNIT SC SCH ×4 (07:32→20:59)
[2018-10-27] MEDS: METOPROLOL SUCC *XL* 25MG TAB (TopROL *XL*) PO SCH ×2 (08:07→09:08)
[2018-10-27] MEDS: LACTULOSE 20 GM/30 ML SYRUP UD PO SCH (09:00)
[2018-10-27] MEDS: SENOKOT S TAB PO SCH ×2 (09:00→20:59)
[2018-10-27] MEDS: TAMSULOSIN 0.4 MG CAP PO SCH (09:07)
[2018-10-27] MEDS: ESCITALOPRAM OXALATE 10 MG TAB (LEXAPRO) PO SCH (09:07)
[2018-10-27] MEDS: buPROPion (WELLBUTRIN SR) 100 MG SR TAB PO SCH (09:08)
[2018-10-27] MEDS: PREGABALIN 75 MG CAP(LYRICA) PO SCH ×2 (09:08→20:59)
[2018-10-27] MEDS: VITAMIN D 1,000 INTERNATIONAL UNITS TABLET PO SCH (09:08)
[2018-10-27] MEDS: ASCORBIC ACID 500 MG TAB PO SCH (09:08)
[2018-10-27] MEDS: FERROUS GLUCONATE 324 MG TAB PO SCH (09:10)
[2018-10-27] MEDS: APIXABAN 2.5 MG TAB (ELIQUIS) PO SCH ×2 (09:10→20:59)
[2018-10-27] MEDS: AMIODARONE 200 MG TAB (PACERONE) PO SCH (09:10)
[2018-10-27] MEDS: FAMOTIDINE 20 MG TAB PO SCH (09:10)
[2018-10-27] MEDS ORDERED: ATOR1TAB19 PO (13:37)
[2018-10-27] MEDS ORDERED: METO1TAB32 PO (13:37)
[2018-10-27] MEDS ORDERED: FAMO20TA PO (13:37)
[2018-10-27] MEDS ORDERED: FLOM0.4C39 PO (13:37)
[2018-10-27] MEDS ORDERED: AMIO200T PO (13:37)
[2018-10-27] MEDS ORDERED: ESCI10TA2 PO (13:37)
[2018-10-27] MEDS ORDERED: ELIQ2.5T PO (13:37)
[2018-10-27] MEDS ORDERED: LYRI75CA PO (13:37)
[2018-10-27] MEDS ORDERED: BUPR10TASR PO (13:37)
[2018-10-27] MEDS ORDERED: HYDR25TA PO (13:39)
[2018-10-27] MEDS ORDERED: INSUDET SC (13:43)
[2018-10-27 14:00] VITALS: BP 114/62
--- NOTE | 2018-10-27 14:31 | IPNPDOC ---
Date Seen The patient was seen on 10/27/18. Progress Note HPI: Mr. Mills is a 67-year-old who reported being in his usual state of health until the evening of admission when he was visiting his daughter at her place of employment when he slipped and fell on his right hip to the ground. He subsequently felt pain and was unable to raise off the ground. Activated EMS and presented to the emergency room. Imaging revealing right intertrochanteric femoral fracture. Orthopedics was consulted. S/P right hip trochanteric fixation nailing (TFN) for intertrochanteric hip fracture. Pt was transferred to ARU, Dr Albarran, 10/06/18. Pt reports no voiced complaints. OOB to chair. Denies any fevers, chills, weakness, fatigue, Headache, Chest Pain, Shortness of breath, cough, palpitations, abdominal pain, N/V/D or changes in bowel or bladder habits. PMHx: DM HTN HLD CAD GERD CHF TTE 09/28/18 EF 65%, DD. PSHX: Cholecystectomy. CAD with stent placement 2000. PE: GEN: 67yoM, appears stated age. No acute distress. Alert and oriented x 3. Pleasant, interactive. HEENT: Normocephalic, atraumatic. Sclera are nonicteric. Conjunctiva without injection. Moist mucous membranes. CHEST: Regular rate and rhythm, +S1, +S2 LUNGS: Clear to auscultation bilaterally. No wheezes, rales, or rhonchi. ABD: Round, soft, non-tender, non-distended. +Bowel sounds throughout. No rebound or guarding. EXT: tr lower extremity edema appreciated B/L distal pretib area. TEDS in place. SKIN: [place], dry, warm. No rashes. NEURO: Alert and oriented x 3. Cranial nerves III-XII are intact. No focal deficits appreciated. A&P: Mr. Mills is a 67-year-old who reported being in his usual state of health until the evening of admission when he was visiting his daughter at her place of employment when he slipped and fell on his right hip to the ground. He subsequently felt pain and was unable to raise off the ground. Activated EMS and presented to the emergency room. Imaging revealing right intertrochanteric femoral fracture. Orthopedics was consulted. S/P right hip trochanteric fixation nailing (TFN) for intertrochanteric hip fracture. Pt was transferred to ARU, Dr Albarran, 10/06/18. 1. Mechanical fall resulting in right intertrochanteric femur fracture/IM nail right hip on 09/30/2018. Management as per Orthopedics. PT/OT/ST as per ARU Pain control as per ARU Bowel care as per ARU Disposition as per ARU DVT px. Continue Eliquis 2.5mg by mouth twice daily for anticoagulation. 2. 11. HTN/HHD/LVH EF 65%/DD. Lasix on hold. Hydralazine 12.5 mg Q8. Toprol XL 25 mg SCr 1.84. BMP in AM. 3. Chronic kidney disease, stage III: Baseline 1.6-1.8 Lasix on hold. Creatinine noted to be 1.84 10/26/18. Monitor I/O. Monitor daily wt 1800cc FR BMP in AM 4. Hematuria: Status post Hdez catheter. Follow-up urinalysis has normalized. Could consider outpatient follow-up with urology. 5. Iron deficiency Anemia Started iron supplement daily with vitamin C. Peripheral smear Normocytic anemia; patient is status-post hip surgery. No blasts identified. Minimal thrombocytopenia with normal platelet morphology. Folate 8.7. Vitamin B12 level WNL. Hgb stable. 6. Diabetes mellitus with hyperglycemia and neuropathy: CC diet. Pt readily admits he follows diet much differently while here. Levemir 5 u HS. SSI. Lyrica Monitor BS. 7. Recent diagnosis of atrial fibrillation. Continue Eliquis, Toprol XL, and amiodarone. 8. Depression: Continue Lexapro. 9. Gastroesophageal reflux disease: Continue famotidine and omeprazole. 10. Benign prostatic hyperplasia: Continue Flomax. 11. Coronary artery disease status-post cardiac stenting: Follows with Dr. Johnson. Status-post stenting in 2000. 12. History of TIA/CVA: Residual left-sided weakness. Monitor. VS, I&O, 24H, Fishbone Vital Signs/I&O Vital Signs Date Time Temp Pulse Resp B/P (MAP) Pulse Ox O2 Delivery O2 Flow Rate FiO2 10/27/18 12:38 18 10/27/18 09:08 46 135/55 10/27/18 06:00 97.4 91 10/26/18 20:03 2.0 I&O- Last 24 Hours up to 6 AM 10/27/18 06:00 Intake Total 660 ml Balance 660 ml Laboratory Data 24H LABS Laboratory Tests 2 10/26/18 16:47: Bedside Glucose (Misc Panel) 97 10/26/18 20:08: Bedside Glucose (Misc Panel) 203H 10/27/18 05:10: Bedside Glucose (Misc Panel) 164H 10/27/18 11:27: Bedside Glucose (Misc Panel) 161H Sharron Cartwright Oct 27, 2018 14:31
[2018-10-27 20:00] VITALS: BP 138/82
[2018-10-27] MEDS: ATORVASTATIN 10 MG TAB PO SCH (20:57)
[2018-10-27] MEDS: LEVEMIR (INSULIN DETEMIR) 1 UNITS/0.01ML SC SCH (21:00)
--- NOTE | 2018-10-27 21:44 | IPNPDOC ---
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 REVIEW OF SYSTEMS: The following is a completed review of systems and has been reviewed. Review of systems otherwise unremarkable. PAIN: Patient self reports right hip pain EYES: Negative for recent vision changes EARS, NOSE, & THROAT:no dysphagia or rhinorrhea CARDIOVASCULAR: +Afib, denies chest pain PULMONARY: Negative. Denies shortness of breath. GASTROINTESTINAL: Negative for constipation or diarrhea GENITOURINARY:+retention (improving) MUSCULOSKELETAL: right hip fracture NEUROLOGICAL: no tremor, no focal weakness, +diabetic neuropathy HEMATOLOGICAL:no ecchymosis SKIN: right hip incision PSYCHIATRIC: Unremarkable All other review of systems found to be negative. PHYSICAL EXAMINATION: VITAL SIGNS: Please see below. GENERAL: Pleasant and cooperative. No acute distress. HEENT: PERRL. Extraocular movements intact. Clear conjunctiva CARDIOVASCULAR: Irregular rate and rhythm. No murmurs, rubs, or gallops LUNGS: Clear to auscultation bilaterally. No wheezes. No rhonchi ABDOMEN: Soft, nontender, mildly distended. Positive bowel sounds. Normal active bowel sounds NEUROLOGICAL: Alert and oriented times three. Cranial nerves II through XII grossly intact. Sensation diminished in stocking pattern lower extremities EXTREMITIES: 5\5 strength bilateral upper extremities. 5-\5 strength ankle DF and EHL did not test right hip flexors or knee extensors due to pain 5-/5 strength in left lower extremity. SKIN: right hip incisions c/d/i, no surrounding induration or erythema +bilateral edema-improving ASSESSMENT:67-year-old M with past medical history of CAD sp stent, Afib, DM who presents status post fall with right hip fracture. PLAN: 1. Rehab: OT, PT assess for DME, able to ambulate further RW, will work on Mod- I bed to commode transfers, continue room privileges, able to negotiate stairs 2. Ortho: s.p right hip ORIF, ortho consulted, WBAT, greg removed today 2. Neuro: pmh CVA/TIA, continue secondary stroke prevention measures- statin, ASA, and BP management 3. CArdio: pmh Afib on amiodarone and low dose Eliquis, chronic diastolic HF and HTN, continue home meds and monitor, beta-diana dose lowered for bradycardia, however patient asymptomatic - medicine consulted 4. Endo: pmh DM, continue insulin therapy, will order nutrition consult per patient request to assist with weight loss- 5units long-acting qHS and continue premeal SS 6. Renal: elevated BUN and [employer] s/p IVF, now on fluid restriction 1800cc/day, m edicine recs appreciated 5. DVT ppx: on eliquis, TEDs 6. Pain: Tylenol and [place] prn, ICE TID 7. Psych: depression, continue Wellbutrin and Lexapro 8. resp: Incentive spirometry, monitor for cough-stable 9. Skin: bilateral LE edema, s/p Lasix , alyson wrap and elevate legs while in bed- improving 9. Dispo: 10/28/18 to home, progressing toward goals Allergies Coded Allergies: Latex (Verified Allergy, Unknown, Hives, 09/28/18) had reaction to rubber gloves-hives Penicillins (Verified Allergy, Unknown, 01/07/14) Vital Signs Vital Signs Date Time Temp Pulse Resp B/P (MAP) Pulse Ox O2 Delivery O2 Flow Rate FiO2 10/27/18 20:59 138/82 10/27/18 14:00 97.1 50 18 91 10/26/18 20:03 2.0 Laboratory Data Labs 24H Laboratory Tests 2 10/27/18 05:10: Bedside Glucose (Misc Panel) 164H 10/27/18 11:27: Bedside Glucose (Misc Panel) 161H 10/27/18 16:38: Bedside Glucose (Misc Panel) 107 10/27/18 20:04: Bedside Glucose (Misc Panel) 155H Current Medications Current Medications Current Medications Acetaminophen (Tylenol Tab) 650 mg Q4HP PRN PO fever/MILD PAIN (PS 1-4); Start 10/06/18 at 16:30 Acetaminophen/ Hydrocodone Bitart ([place], Anexsia 5/325) 1 tab Q4HP PRN PO MODERATE PAIN (PS 5-7) Last administered on 10/11/18at 21:51; Start 10/06/18 at 16:30 Acetaminophen/ Hydrocodone Bitart ([place], Anexsia 5/325) 2 tab Q4HP PRN PO SEVERE PAIN (PS 8-10) Last administered on 2/13/19at 12:38; Start 10/06/18 at 16:30 Amiodarone HCl (Pacer[place], Cordarone) 200 mg DAILY PO Last administered on 10/27/18 09:10; Start 10/07/18 at 09:00 Apixaban (Eliquis) 2.5 mg BID PO Last administered on 10/27/18 20:59; Start 10/06/18 at 21:00 Ascorbic Acid (Vitamin C) 500 mg DAILY PO Last administered on 10/27/18 09:08; Start 10/07/18 at 09:00 Atorvastatin Calcium (Lipitor) 10 mg QHS PO Last administered on 10/27/18 20:57; Start 10/06/18 at 21:00 Bisacodyl (Dulcolax Suppository) 10 mg DAILYPRN PRN [place] CONSTIPATION; Start 10/06/18 at 16:30 Bupropion HCl (Wellbutrin Sr) 100 mg DAILY PO Last administered on 10/27/18 09:08; Start 10/07/18 at 09:00 Dextrose (Dextrose 50%) 25 ml ASDIRECTED PRN IV SEE LABEL COMMENTS; Start 10/06/18 at 16:45 Escitalopram Oxalate (Lexapro) 20 mg DAILY PO Last administered on 10/27/18 09:07; Start 10/07/18 at 09:00 Famotidine (Pepcid) 20 mg DAILY PO Last administered on 10/27/18 09:10; Start 10/07/18 at 09:00 Ferrous Gluconate (Fergon) 324 mg DAILY PO Last administered on 10/27/18 09:10; Start 10/07/18 at 09:00 Furosemide (Lasix) 20 mg DAILY PO Last administered on 10/17/18 08:54; Start 10/11/18 at 09:00; Stop 10/17/18 at 09:01; Status DC Furosemide (Lasix) 20 mg DAILY PO Last administered on 10/26/18 08:34; Start 10/18/18 at 09:00; Stop 10/26/18 at 09:53; Status DC Glucagon (Glucagon) 1 mg ASDIRECTED PRN SC SEE LABEL COMMENTS; Start 10/06/18 at 16:45 Glucose (Glucose) 16 GM ASDIRECTED PRN PO SEE LABEL COMMENTS; Start 10/06/18 at 16:45 Home Med (Med Rec Complete!) ASDIRECTED XX ; Start 10/06/18 at 17:30; Stop 10/06/18 at 17:30; Status DC Hydralazine HCl (Apresoline) 12.5 mg Q8H PO Last administered on 10/27/18at 20:59; Start 10/13/18 at 14:00 Insulin Detemir (Levemir Insulin) 5 units QHS SC Last administered on 10/27/18at 21:00; Start 10/15/18 at 21:00 Insulin Detemir (Levemir Insulin) 45 units DAILY SC Last administered on 10/12/18at 09:07; Start 10/07/18 at 09:00; Stop 10/12/18 at 16:18; Status DC Insulin Human Lispro (HumaLOG INSULIN) SEE PROTOCOL TABLE AC SC Last adminis tered on 10/27/18at 17:17; Start 10/06/18 at 17:30 Insulin Human Lispro (HumaLOG INSULIN) See Protocol Table QHS SC ; Start 10/06 at 21:00 Lactulose (Cephulac) 30 ml DAILY PO Last administered on 10/13/18at 08:15; Start 10/07/18 at 09:00 Magnesium Hydroxide (Milk Of Magnesia) 30 ml DAILYPRN PRN PO CONSTIPATION; Start 10/06/18 at 16:30 Metoprolol Succinate (TopROL XL) 25 mg DAILY PO ; Start 10/28/18 at 09:00 Metoprolol Succinate (TopROL XL) 75 mg DAILY PO Last administered on 10/27/18at 09:08; Start 10/19/18 at 09:00; Stop 10/27/18 at 13:22; Status DC Metoprolol Succinate (TopROL XL) 100 mg DAILY PO Last administered on 10/17/18at 08:55; Start 10/07/18 at 09:00; Stop 10/18/18 at 10:48; Status DC Miscellaneous (Unresolved Clarification Entry) SEE LABEL COMMENTS DAILY XX ; Start 10/12/18 at 09:00; Stop 10/13/18 at 07:15; Status DC Miscellaneous (Unresolved Clarification Entry) SEE LABEL COMMENTS DAILY XX ; Start 10/13/18 at 09:00; Stop 10/13/18 at 09:35; Status DC Miscellaneous (Unresolved Clarification Entry) SEE LABEL COMMENTS DAILY XX ; Start 10/14/18 at 09:00; Stop 10/14/18 at 09:00; Status DC Miscellaneous (Unresolved Clarification Entry) SEE LABEL COMMENTS DAILY XX Last administered on 10/24/18at 11:46; Start 10/24/18 at 09:00; Stop 10/24/18 at 14:58; Status DC Pregabalin (Lyrica) 150 mg BID PO Last administered on 10/27/18at 20:59; Start 10/06/18 at 21:00 Senna/Docusate Sodium (Senokot S) 1 tab BID PO Last administered on 10/27/18at 20:59; Start 10/06/18 at 21:00 Tamsulosin HCl (Flomax) 0.4 mg DAILY PO Last administered on 10/27/18 09:07; Start 10/07/18 at 09:00 Vitamin D (Vitamin D) 1,000 units DAILY PO Last administered on 10/27/18 09:08; Start 10/07/18 at 09:00 KARLA ULLOA MD Oct 27, 2018 21:44
[2018-10-28 05:22] VITALS: BP 142/90
[2018-10-28] MEDS: **hydrALAZINE HCL** 25 MG TAB PO SCH ×3 (05:47→21:04)
[2018-10-28 07:06] LABS: HEMATOCRIT 32.5 % (42.0-52.0); HEMOGLOBIN 10.1 g/dl (13.5-17.5); MEAN CORPUSCULAR HEMOGLOBIN 30.7 pg (27.0-33.0); MEAN CORPUSCULAR HGB CONC 31.1 g/dl (32.0-36.5); MEAN CORPUSCULAR VOLUME 98.8 fl (80.0-96.0); PLATELET COUNT, AUTOMATED 150 10^3/uL (150-450); RED BLOOD COUNT 3.29 10^6/uL (4.30-6.10)
[2018-10-28 07:33] LABS: CALCIUM LEVEL 8.1 MG/DL (8.8-10.2); CREATININE FOR GFR 1.98 MG/DL (0.70-1.30); GLOMERULAR FILTRATION RATE 35.9 (>49)
[2018-10-28] MEDS: NORCO, ANEXSIA 5/325MG TABLET (HYDROcodone/ACETAMINOPHEN) PO PRN ×3 (07:46→21:55)
[2018-10-28] MEDS: FERROUS GLUCONATE 324 MG TAB PO SCH (08:15)
[2018-10-28] MEDS: LACTULOSE 20 GM/30 ML SYRUP UD PO SCH ×2 (08:15→09:00)
[2018-10-28] MEDS: HumaLOG INSULIN (NovoLOG) PER UNIT SC SCH ×4 (08:15→21:00)
[2018-10-28] MEDS: PREGABALIN 75 MG CAP(LYRICA) PO SCH ×2 (08:16→21:05)
[2018-10-28] MEDS: SENOKOT S TAB PO SCH ×2 (08:16→21:04)
[2018-10-28] MEDS: ESCITALOPRAM OXALATE 10 MG TAB (LEXAPRO) PO SCH (08:16)
[2018-10-28] MEDS: AMIODARONE 200 MG TAB (PACERONE) PO SCH (08:16)
[2018-10-28] MEDS: TAMSULOSIN 0.4 MG CAP PO SCH (08:16)
[2018-10-28] MEDS: buPROPion (WELLBUTRIN SR) 100 MG SR TAB PO SCH (08:16)
[2018-10-28] MEDS: ASCORBIC ACID 500 MG TAB PO SCH (08:17)
[2018-10-28] MEDS: APIXABAN 2.5 MG TAB (ELIQUIS) PO SCH ×2 (08:17→21:04)
[2018-10-28] MEDS: METOPROLOL SUCC *XL* 25MG TAB (TopROL *XL*) PO SCH (08:17)
[2018-10-28] MEDS: VITAMIN D 1,000 INTERNATIONAL UNITS TABLET PO SCH (08:17)
[2018-10-28] MEDS: FAMOTIDINE 20 MG TAB PO SCH (08:17)
[2018-10-28 09:00] VITALS: BP 140/72
--- NOTE | 2018-10-28 10:36 | REP ---
AP pelvis: There are no comparisons. No pelvic fracture is identified. There is gamma nail fixation of the right hip. Left hip is unremarkable. There are pelvic calcifications, likely phleboliths. Right hip two views: There is gamma nail fixation of an intertrochanteric fracture. The fracture and hardware are in satisfactory positions alignment. The the femoral acetabular joint space is unremarkable. Left hip two views: Mineralization and joint space are unremarkable. There is no fracture or dislocation. Electronically Signed by Sammy Kennedy MD 10/28/2018 10:27 A
--- NOTE | 2018-10-28 14:08 | IPNPDOC ---
Date Seen The patient was seen on 10/28/18. Progress Note HPI: Mr. Mills is a 67-year-old who reported being in his usual state of health until the evening of admission when he was visiting his daughter at her place of employment when he slipped and fell on his right hip to the ground. He subsequently felt pain and was unable to raise off the ground. Activated EMS and presented to the emergency room. Imaging revealing right intertrochanteric femoral fracture. Orthopedics was consulted. S/P right hip trochanteric fixation nailing (TFN) for intertrochanteric hip fracture. Pt was transferred to ARU, Dr Albarran, 10/06/18. Patient states he was ambulating around his room this morning. He was trying to go back to the chair when he lost his balance and fell. He was using a walker at this time however he could not reach it. He states he had some pain in his right lower extremity, he is not having any pain currently. He reports no other injuries. He did not hit his head. No loss of consciousness. No dizziness or lightheadedness. He states he was walking back from the bathroom and trying to pack up some of his belongings in preparation for discharge today. Denies any fevers, chills, weakness, fatigue, Headache, Chest Pain, Shortness of breath, cough, palpitations, abdominal pain, N/V/D or changes in bowel or bladder habits. PMHx: DM HTN HLD CAD GERD CHF TTE 09/28/18 EF 65%, DD. PSHX: Cholecystectomy. CAD with stent placement 2000. PE: GEN: 67yoM, appears stated age. No acute distress. Alert and oriented x 3. Pleasant, interactive. HEENT: Normocephalic, atraumatic. Sclera are nonicteric. Conjunctiva without injection. Moist mucous membranes. CHEST: Regular rate and rhythm, +S1, +S2 LUNGS: Clear to auscultation bilaterally. No wheezes, rales, or rhonchi. ABD: Round, soft, non-tender, non-distended. +Bowel sounds throughout. No rebound or guarding. EXT: tr lower extremity edema appreciated B/L distal pretib area. TEDS in place. SKIN: [place], dry, warm. No rashes. NEURO: Alert and oriented x 3. Cranial nerves III-XII are intact. No focal deficits appreciated. A&P: Mr. Mills is a 67-year-old who reported being in his usual state of health until the evening of admission when he was visiting his daughter at her place of employment when he slipped and fell on his right hip to the ground. He subsequently felt pain and was unable to raise off the ground. Activated EMS and presented to the emergency room. Imaging revealing right intertrochanteric femoral fracture. Orthopedics was consulted. S/P right hip trochanteric fixation nailing (TFN) for intertrochanteric hip fracture. Pt was transferred to ARU, Dr Albarran, 10/06/18. 1. Mechanical fall resulting in right intertrochanteric femur fracture/IM nail right hip on 09/30/2018. Management as per Orthopedics. PT/OT/ST as per ARU Pain control as per ARU Bowel care as per ARU Disposition as per ARU DVT px. Continue Eliquis 2.5mg by mouth twice daily for anticoagulation. X-ray right hip completed 10/28/18 is negative for fracture. 2. 11. HTN/HHD/LVH EF 65%/DD. Lasix on hold. Hydralazine 12.5 mg Q8. Toprol XL 25 mg SCr 1.98 BMP in AM 3. Chronic kidney disease, stage III: Baseline 1.6-1.8 Lasix on hold. Creatinine noted to be 1.98. Monitor I/O. Monitor daily wt 1800cc FR BMP in AM 4. Hematuria: Status post Hdez catheter. Follow-up urinalysis has normalized. Could consider outpatient follow-up with urology. 5. Iron deficiency Anemia Started iron supplement daily with vitamin C. Peripheral smear Normocytic anemia; patient is status-post hip surgery. No blasts identified. Minimal thrombocytopenia with normal platelet morphology. Folate 8.7. Vitamin B12 level WNL. Hgb stable. 6. Diabetes mellitus with hyperglycemia and neuropathy: CC diet. Pt readily admits he follows diet much differently while here. Levemir 5 u HS. SSI. Lyrica Monitor BS. 7. Recent diagnosis of atrial fibrillation. Continue Eliquis, Toprol XL, and amiodarone. 8. Depression: Continue Lexapro. 9. Gastroesophageal reflux disease: Continue famotidine and omeprazole. 10. Benign prostatic hyperplasia: Continue Flomax. 11. Coronary artery disease status-post cardiac stenting: Follows with Dr. Johnson. Status-post stenting in 2000. 12. History of TIA/CVA: Residual left-sided weakness. Monitor. VS, I&O, 24H, Fishbone Vital Signs/I&O Vital Signs Date Time Temp Pulse Resp B/P (MAP) Pulse Ox O2 Delivery O2 Flow Rate FiO2 10/28/18 12:10 18 10/28/18 09:00 97.8 74 140/72 (94) 93 10/26/18 20:03 2.0 I&O- Last 24 Hours up to 6 AM 10/28/18 06:00 Intake Total 920 ml Output Total 0 ml Balance 920 ml Laboratory Data 24H LABS Laboratory Tests 2 10/27/18 16:38: Bedside Glucose (Misc Panel) 107 10/27/18 20:04: Bedside Glucose (Misc Panel) 155H 10/28/18 06:54: Nucleated Red Blood Cells % (auto) 0.0, Anion Gap 5L, Glomerular Filtration Rate 35.9L, Blood Urea Nitrogen 50H, Creatinine 1.98H, Sodium Level 139, Potassium Level 5.0, Chloride Level 106, Carbon Dioxide Level 28, Calcium Level 8.1L 10/28/18 12:18: Bedside Glucose (Misc Panel) 121H CBC/BMP Laboratory Tests 10/28/18 06:54 Red Blood Count 3.29 L, Mean Corpuscular Volume 98.8 H, Mean Corpuscular Hemoglobin 30.7, Mean Corpuscular Hemoglobin Concent 31.1 L, Red Cell Distribution Width 14.0, Calcium Level 8.1 L Sharron Cartwright Oct 28, 2018 14:08
--- NOTE | 2018-10-28 14:50 | IPNPDOC ---
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 He d enies dizziness prior to fall and no pain following fall. Hip X-rays were ordered. REVIEW OF SYSTEMS: The following is a completed review of systems and has been reviewed. Review of systems otherwise unremarkable. PAIN: Patient self reports right hip pain EYES: Negative for recent vision changes EARS, NOSE, & THROAT:no dysphagia or rhinorrhea CARDIOVASCULAR: +Afib, denies chest pain PULMONARY: Negative. Denies shortness of breath. GASTROINTESTINAL: Negative for constipation or diarrhea GENITOURINARY:+retention (improving) MUSCULOSKELETAL: right hip fracture NEUROLOGICAL: no tremor, no focal weakness, +diabetic neuropathy HEMATOLOGICAL:no ecchymosis SKIN: right hip incision PSYCHIATRIC: Unremarkable All other review of systems found to be negative. PHYSICAL EXAMINATION: VITAL SIGNS: Please see below. GENERAL: Pleasant and cooperative. No acute distress. HEENT: PERRL. Extraocular movements intact. Clear conjunctiva CARDIOVASCULAR: Irregular rate and rhythm. No murmurs, rubs, or gallops LUNGS: Clear to auscultation bilaterally. No wheezes. No rhonchi ABDOMEN: Soft, nontender, mildly distended. Positive bowel sounds. Normal active bowel sounds NEUROLOGICAL: Alert and oriented times three. Cranial nerves II through XII grossly intact. Sensation diminished in stocking pattern lower extremities EXTREMITIES: 5\\5 strength bilateral upper extremities. 5-\\5 strength ankle DF and EHL did not test right hip flexors or knee extensors due to pain 5-/5 strength in left lower extremity. SKIN: right hip incisions c/d/i, no surrounding induration or erythema +bilateral edema-improving ASSESSMENT:67-year-old M with past medical history of CAD sp stent, Afib, DM who presents status post fall with right hip fracture. PLAN: 1. Rehab: OT, PT assess for DME, able to ambulate further RW, will work on Mod- I bed to commode transfers, will hold room privileges given fall toady and reassess over the weekend, able to negotiate stairs 2. Ortho: s.p right hip ORIF, ortho consulted, WBAT, greg removed, s/p fall on unit hip X-rays negative for new fracture, no head trauma 2. Neuro: pmh CVA/TIA, continue secondary stroke prevention measures- statin, ASA, and BP management 3. CArdio: pmh Afib on amiodarone and low dose Eliquis, chronic diastolic HF and HTN, continue home meds and monitor, beta-diana dose lowered for bradycardia- improving - medicine consulted 4. Endo: pmh DM, continue insulin therapy, will order nutrition consult per patient request to assist with weight loss- 5units long-acting qHS and continue premeal SS 6. 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 DVT ppx: on eliquis, TEDs 6. Pain: Tylenol and [place] prn, ICE TID 7. Psych: depression, continue Wellbutrin and Lexapro 8. resp: Incentive spirometry, monitor for cough-stable 9. Skin: bilateral LE edema, s/p Lasix , alyson wrap and elevate legs while in bed- improving 9. Dispo: changed date to 11/01 to home given patient fell today while packing his clothes will work more on stairs and fall prevention progressing toward goals Allergies Coded Allergies: Latex (Verified Allergy, Unknown, Hives, 09/28/18) had reaction to rubber gloves-hives Penicillins (Verified Allergy, Unknown, 01/07/14) Vital Signs Vital Signs Date Time Temp Pulse Resp B/P (MAP) Pulse Ox O2 Delivery O2 Flow Rate FiO2 10/28/18 12:10 18 10/28/18 09:00 97.8 74 140/72 (94) 93 10/26/18 20:03 2.0 Laboratory Data CBC/BMP Laboratory Tests 10/28/18 06:54 Red Blood Count 3.29 L, Mean Corpuscular Volume 98.8 H, Mean Corpuscular Hemoglobin 30.7, Mean Corpuscular Hemoglobin Concent 31.1 L, Red Cell Distribution Width 14.0, Calcium Level 8.1 L Labs 24H Laboratory Tests 2 10/27/18 16:38: Bedside Glucose (Misc Panel) 107 10/27/18 20:04: Bedside Glucose (Misc Panel) 155H 10/28/18 06:54: Nucleated Red Blood Cells % (auto) 0.0, Anion Gap 5L, Glomerular Filtration Rate 35.9L, Blood Urea Nitrogen 50H, Creatinine 1.98H, Sodium Level 139, Potassium Level 5.0, Chloride Level 106, Carbon Dioxide Level 28, Calcium Level 8.1L 10/28/18 12:18: Bedside Glucose (Misc Panel) 121H Current Medications Current Medications Current Medications Acetaminophen (Tylenol Tab) 650 mg Q4HP PRN PO fever/MILD PAIN (PS 1-4); Start 10/06/18 at 16:30 Acetaminophen/ Hydrocodone Bitart ([place], Anexsia 5/325) 1 tab Q4HP PRN PO MODERATE PAIN (PS 5-7) Last administered on 10/11/18at 21:51; Start 10/06/18 at 16:30 Acetaminophen/ Hydrocodone Bitart ([place], Anexsia 5/325) 2 tab Q4HP PRN PO [place] PAIN (PS 8-10) Last administered on 10/28/18at 11:40; Start 10/06/18 at 16:30 Amiodarone HCl (Pacerone, Cordarone) 200 mg DAILY PO Last administered on 10/28/18at 08:16; Start 10/07/18 at 09:00 Apixaban (Eliquis) 2.5 mg BID PO Last administered on 10/28/18 08:17; Start 10/06/18 at 21:00 Ascorbic Acid (Vitamin C) 500 mg DAILY PO Last administered on 10/28/18 08:17; Start 10/07/18 at 09:00 Atorvastatin Calcium (Lipitor) 10 mg QHS PO Last administered on 10/27/18at 20:57; Start 10/06/18 at 21:00 Bisacodyl (Dulcolax Suppository) 10 mg DAILYPRN PRN [place] CONSTIPATION; Start 10/06/18 at 16:30 Bupropion HCl (Wellbutrin Sr) 100 mg DAILY PO Last administered on 10/28/18at 08:16; Start 10/07/18 at 09:00 Dextrose (Dextrose 50%) 25 ml ASDIRECTED PRN IV SEE LABEL COMMENTS; Start 10/06/18 at 16:45 Escitalopram Oxalate (Lexapro) 20 mg DAILY PO Last administered on 10/28/18at 08:16; Start 10/07/18 at 09:00 Famotidine (Pepcid) 20 mg DAILY PO Last administered on 10/28/18at 08:17; Start 10/07/18 at 09:00 Ferrous Gluconate (Fergon) 324 mg DAILY PO Last administered on 10/28/18at 08:15; Start 10/07/18 at 09:00 Furosemide (Lasix) 20 mg DAILY PO Last administered on 10/17/18at 08:54; Start 10/11/18 at 09:00; Stop 10/17/18 at 09:01; Status DC Furosemide (Lasix) 20 mg DAILY PO Last administered on 10/26/18at 08:34; Start 10/18/18 at 09:00; Stop 10/26/18 at 09:53; Status DC Glucagon (Glucagon) 1 mg ASDIRECTED PRN SC SEE LABEL COMMENTS; Start 10/06/18 at 16:45 Glucose (Glucose) 16 GM ASDIRECTED PRN PO SEE LABEL COMMENTS; Start 10/06/18 at 16:45 Home Med (Med Rec Complete!) ASDIRECTED XX ; Start 10/06/18 at 17:30; Stop 10/06/18 at 17:30; Status DC Hydralazine HCl (Apresoline) 12.5 mg Q8H PO Last administered on 10/28/18at 05:47; Start 10/13/18 at 14:00 Insulin Detemir (Levemir Insulin) 5 units QHS SC Last administered on 10/27/18at 21:00; Start 10/15/18 at 21:00 Insulin Detemir (Levemir Insulin) 45 units DAILY SC Last administered on 10/12/18at 09:07; Start 10/07/18 at 09:00; Stop 10/12/18 at 16:18; Status DC Insulin Human Lispro (HumaLOG INSULIN) SEE PROTOCOL TABLE AC SC Last ad ministered on 10/28/18at 12:24; Start 10/06/18 at 17:30 Insulin Human Lispro (HumaLOG INSULIN) See Protocol Table QHS SC ; Start 10/06/18 at 21:00 Lactulose (Cephulac) 30 ml DAILY PO Last administered on 10/13/18at 08:15; Start 10/07/18 at 09:00 Magnesium Hydroxide (Milk Of Magnesia) 30 ml DAILYPRN PRN PO CONSTIPATION; Start 10/06/18 at 16:30 Metoprolol Succinate (TopROL XL) 25 mg DAILY PO Last administered on 10/28/18 08:17; Start 10/28/18 at 09:00 Metoprolol Succinate (TopROL XL) 75 mg DAILY PO Last administered on 10/27/18at 09:08; Start 10/19/18 at 09:00; Stop 10/27/18 at 13:22; Status DC Metoprolol Succinate (TopROL XL) 100 mg DAILY PO Last administered on 10/17/18at 08:55; Start 10/07/18 at 09:00; Stop 10/18/18 at 10:48; Status DC Miscellaneous (Unresolved Clarification Entry) SEE LABEL COMMENTS DAILY XX ; Start 10/12/18 at 09:00; Stop 10/13/18 at 07:15; Status DC Miscellaneous (Unresolved Clarification Entry) SEE LABEL COMMENTS DAILY XX ; Start 10/13/18 at 09:00; Stop 10/13/18 at 09:35; Status DC Miscellaneous (Unresolved Clarification Entry) SEE LABEL COMMENTS DAILY XX ; Start 10/14/18 at 09:00; Stop 10/14/18 at 09:00; Status DC Miscellaneous (Unresolved Clarification Entry) SEE LABEL COMMENTS DAILY XX Last administered on 10/24/18at 11:46; Start 10/24/18 at 09:00; Stop 10/24/18 at 14:58; Status DC Pregabalin (Lyrica) 150 mg BID PO Last administered on 10/28/18 08:16; Start 10/06/18 at 21:00 Senna/Docusate Sodium (Senokot S) 1 tab BID PO Last administered on 10/28/18at 08:16; Start 10/06/18 at 21:00 Tamsulosin HCl (Flomax) 0.4 mg DAILY PO Last administered on 10/28/18 08:16; Start 10/07/18 at 09:00 Vitamin D (Vitamin D) 1,000 units DAILY PO Last administered on 10/28/18at 08:17; Start 10/07/18 at 09:00 KARLA ULLOA MD Oct 28, 2018 14:50
[2018-10-28 20:17] VITALS: BP 152/82
[2018-10-28] MEDS: ATORVASTATIN 10 MG TAB PO SCH (21:05)
[2018-10-28] MEDS: LEVEMIR (INSULIN DETEMIR) 1 UNITS/0.01ML SC SCH (21:06)
[2018-10-29 05:05] VITALS: BP 134/78
[2018-10-29] MEDS: **hydrALAZINE HCL** 25 MG TAB PO SCH ×3 (05:32→21:25)
[2018-10-29] MEDS: NORCO, ANEXSIA 5/325MG TABLET (HYDROcodone/ACETAMINOPHEN) PO PRN (05:36)
[2018-10-29 07:01] LABS: CREATININE FOR GFR 2.21 MG/DL (0.70-1.30); GLOMERULAR FILTRATION RATE 31.6 (>49)
[2018-10-29] MEDS: ASCORBIC ACID 500 MG TAB PO SCH (09:28)
[2018-10-29] MEDS: FERROUS GLUCONATE 324 MG TAB PO SCH (09:28)
[2018-10-29] MEDS: PREGABALIN 75 MG CAP(LYRICA) PO SCH ×2 (09:28→21:24)
[2018-10-29] MEDS: HumaLOG INSULIN (NovoLOG) PER UNIT SC SCH ×4 (09:28→21:00)
[2018-10-29] MEDS: AMIODARONE 200 MG TAB (PACERONE) PO SCH (09:28)
[2018-10-29] MEDS: TAMSULOSIN 0.4 MG CAP PO SCH (09:28)
[2018-10-29] MEDS: buPROPion (WELLBUTRIN SR) 100 MG SR TAB PO SCH (09:28)
[2018-10-29] MEDS: FAMOTIDINE 20 MG TAB PO SCH (09:29)
[2018-10-29] MEDS: SENOKOT S TAB PO SCH ×2 (09:29→21:24)
[2018-10-29] MEDS: METOPROLOL SUCC *XL* 25MG TAB (TopROL *XL*) PO SCH (09:29)
[2018-10-29] MEDS: APIXABAN 2.5 MG TAB (ELIQUIS) PO SCH ×2 (09:29→21:25)
[2018-10-29] MEDS: ESCITALOPRAM OXALATE 10 MG TAB (LEXAPRO) PO SCH (09:29)
[2018-10-29] MEDS: VITAMIN D 1,000 INTERNATIONAL UNITS TABLET PO SCH (09:29)
[2018-10-29] MEDS ORDERED: NS 1,000 ML IV ONE (13:45)
[2018-10-29 14:00] VITALS: BP 137/65
--- NOTE | 2018-10-29 14:27 | IPNPDOC ---
Date Seen The patient was seen on 10/29/18. Progress Note HPI: Mr. Mills is a 67-year-old who reported being in his usual state of health until the evening of admission when he was visiting his daughter at her place of employment when he slipped and fell on his right hip to the ground. He subsequently felt pain and was unable to raise off the ground. Activated EMS and presented to the emergency room. Imaging revealing right intertrochanteric femoral fracture. Orthopedics was consulted. S/P right hip trochanteric fixation nailing (TFN) for intertrochanteric hip fracture. Pt was transferred to ARU, Dr Albarran, 10/06/18. The pt has no new concerns today. OOB to chair. Denies any fevers, chills, weakness, fatigue, Headache, Chest Pain, Shortness of breath, cough, palpitations, abdominal pain, N/V/D or changes in bowel or bladder habits. PMHx: DM HTN HLD CAD GERD CHF TTE 09/28/18 EF 65%, DD. PSHX: Cholecystectomy. CAD with stent placement 2000. PE: GEN: 67yoM, appears stated age. No acute distress. Alert and oriented x 3. Ple asant, interactive. HEENT: Normocephalic, atraumatic. Sclera are nonicteric. Conjunctiva without i njection. Moist mucous membranes. CHEST: Regular rate and rhythm, +S1, +S2 LUNGS: Clear to auscultation bilaterally. No wheezes, rales, or rhonchi. ABD: Round, soft, non-tender, non-distended. +Bowel sounds throughout. No rebound or guarding. EXT: tr lower extremity edema appreciated B/L distal pretib area. TEDS in place. SKIN: Rachel, dry, warm. No rashes. NEURO: Alert and oriented x 3. Cranial nerves III-XII are intact. No focal deficits appreciated. A&P: Mr. Mills is a 67-year-old who reported being in his usual state of health until the evening of admission when he was visiting his daughter at her place of employment when he slipped and fell on his right hip to the ground. He subsequently felt pain and was unable to raise off the ground. Activated EMS and presented to the emergency room. Imaging revealing right intertrochanteric femoral fracture. Orthopedics was consulted. S/P right hip trochanteric fixation nailing (TFN) for intertrochanteric hip fracture. Pt was transferred to ARU, Dr Albarran, 10/06/18. 1. Mechanical fall resulting in right intertrochanteric femur fracture/IM nail right hip on 09/30/2018. Management as per Orthopedics. PT/OT/ST as per ARU Pain control as per ARU Bowel care as per ARU Disposition as per ARU DVT px. Continue Eliquis 2.5mg by mouth twice daily for anticoagulation. X-ray right hip completed 10/28/18 is negative for fracture. 2. 11. HTN/HHD/LVH EF 65%/DD. Lasix on hold since 10/26/18. Hydralazine 12.5 mg Q8. Toprol XL 25 mg SCr 2.21 IVF x 1 liter ordered as per Dr Albarran. Caution with IVF. BMP in AM 3. Chronic kidney disease, stage III: Baseline 1.6-1.8 Lasix on hold since 10/26/18. Creatinine noted to be 2.21. Monitor I/O. Monitor daily wt 1800cc FR BMP in AM 4. Hematuria: Status post Hdez catheter. Follow-up urinalysis has normalized. Could consider outpatient follow-up with urology. 5. Iron deficiency Anemia Started iron supplement daily with vitamin C. Peripheral smear Normocytic anemia; patient is status-post hip surgery. No blasts identified. Minimal thrombocytopenia with normal platelet morphology. Folate 8.7. Vitamin B12 level WNL. Hgb stable. 6. Diabetes mellitus with hyperglycemia and neuropathy: CC diet. Pt readily admits he follows diet much differently while here. Levemir 5 u HS. SSI. Lyrica Monitor BS. 7. Recent diagnosis of atrial fibrillation. Continue Eliquis, Toprol XL, and amiodarone. 8. Depression: Continue Lexapro. 9. Gastroesophageal reflux disease: Continue famotidine and omeprazole. 10. Benign prostatic hyperplasia: Continue Flomax. 11. Coronary artery disease status-post cardiac stenting: Follows with Dr. Johnson. Status-post stenting in 2000. 12. History of TIA/CVA: Residual left-sided weakness. Monitor. VS, I&O, 24H, Fishbone Vital Signs/I&O Vital Signs Date Time Temp Pulse Resp B/P (MAP) Pulse Ox O2 Delivery O2 Flow Rate FiO2 10/29/18 09:29 53 140/76 10/29/18 06:10 18 10/29/18 05:05 97.8 91 10/26/18 20:03 2.0 I&O- Last 24 Hours up to 6 AM 10/29/18 06:00 Intake Total 240 ml Balance 240 ml Laboratory Data 24H LABS Laboratory Tests 2 10/28/18 16:47: Bedside Glucose (Misc Panel) 205H 10/28/18 20:08: Bedside Glucose (Misc Panel) 224H 10/29/18 05:53: Bedside Glucose (Misc Panel) 181H 10/29/18 06:15: Anion Gap 7L, Glomerular Filtration Rate 31.6L, Blood Urea Nitrogen 59H, Creatinine 2.21H, Sodium Level 141, Potassium Level 5.0, Chloride Level 107, Carbon Dioxide Level 27, Calcium Level 8.0L 10/29/18 11:28: Bedside Glucose (Misc Panel) 103 CBC/BMP Laboratory Tests 10/29/18 06:15 Calcium Level 8.0 L Sharron Cartwright Oct 29, 2018 14:27
--- NOTE | 2018-10-29 15:46 | IPNPDOC ---
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 REVIEW OF SYSTEMS: The following is a completed review of systems and has been reviewed. Review of systems otherwise unremarkable. PAIN: Patient self reports right hip pain EYES: Negative for recent vision changes EARS, NOSE, & THROAT:no dysphagia or rhinorrhea CARDIOVASCULAR: +Afib, denies chest pain PULMONARY: Negative. Denies shortness of breath. GASTROINTESTINAL: Negative for constipation or diarrhea GENITOURINARY:+retention (improving) MUSCULOSKELETAL: right hip fracture NEUROLOGICAL: no tremor, no focal weakness, +diabetic neuropathy HEMATOLOGICAL:no ecchymosis SKIN: right hip incision PSYCHIATRIC: Unremarkable All other review of systems found to be negative. PHYSICAL EXAMINATION: VITAL SIGNS: Please see below. GENERAL: Pleasant and cooperative. No acute distress. HEENT: PERRL. Extraocular movements intact. Clear conjunctiva CARDIOVASCULAR: Irregular rate and rhythm. No murmurs, rubs, or gallops LUNGS: Clear to auscultation bilaterally. No wheezes. No rhonchi ABDOMEN: Soft, nontender, mildly distended. Positive bowel sounds. Normal active bowel sounds NEUROLOGICAL: Alert and oriented times three. Cranial nerves II through XII grossly intact. Sensation diminished in stocking pattern lower extremities EXTREMITIES: 5\5 strength bilateral upper extremities. 5-\5 strength ankle DF and EHL did not test right hip flexors or knee extensors due to pain 5-/5 strength in left lower extremity. SKIN: right hip incisions c/d/i, no surrounding induration or erythema +bilateral edema-improving ASSESSMENT:67-year-old M with past medical history of CAD sp stent, Afib, DM who presents status post fall with right hip fracture. PLAN: 1. Rehab: OT, PT assess for DME, able to ambulate further RW, will work on Mod- I bed to commode transfers, will hold room privileges given fall toady and re assess over the weekend, able to negotiate stairs 2. Ortho: s.p right hip ORIF, ortho consulted, WBAT, greg removed, s/p fall on unit hip X-rays negative for new fracture, no head trauma 2. Neuro: pmh CVA/TIA, continue secondary stroke prevention measures- statin, ASA, and BP management 3. CArdio: pmh Afib on amiodarone and low dose Eliquis, chronic diastolic HF and HTN, continue home meds and monitor, beta-diana dose lowered for bradycardia- improving - medicine consulted 4. Endo: pmh DM, continue insulin therapy, will order nutrition consult per patient request to assist with weight loss- 5units long-acting qHS and continue premeal SS 6. 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 DVT ppx: on eliquis, TEDs 6. Pain: Tylenol and [place] prn, ICE TID, will titrate down [place] 7. Psych: depression, continue Wellbutrin and Lexapro 8. resp: Incentive spirometry, monitor for cough-stable 9. Skin: bilateral LE edema, s/p Lasix , alyson wrap and elevate legs while in bed- improving 10. : admission Ua and Ucx negative,l will repeat UA 9. Dispo: changed date to 11/01 to home given patient fell today while packing his clothes will work more on stairs and fall prevention progressing toward goals Allergies Coded Allergies: Latex (Verified Allergy, Unknown, Hives, 09/28/18) had reaction to rubber gloves-hives Penicillins (Verified Allergy, Unknown, 01/07/14) Vital Signs Vital Signs Date Time Temp Pulse Resp B/P (MAP) Pulse Ox O2 Delivery O2 Flow Rate FiO2 10/29/18 14:49 137/65 10/29/18 14:00 97.6 67 18 92 10/26/18 20:03 2.0 Laboratory Data CBC/BMP Laboratory Tests 10/29/18 06:15 Calcium Level 8.0 L Labs 24H Laboratory Tests 2 10/28/18 16:47: Bedside Glucose (Misc Panel) 205H 10/28/18 20:08: Bedside Glucose (Misc Panel) 224H 10/29/18 05:53: Bedside Glucose (Misc Panel) 181H 10/29/18 06:15: Anion Gap 7L, Glomerular Filtration Rate 31.6L, Blood Urea Nitrogen 59H, Creatinine 2.21H, Sodium Level 141, Potassium Level 5.0, Chloride Level 107, Carbon Dioxide Level 27, Calcium Level 8.0L 10/29/18 11:28: Bedside Glucose (Misc Panel) 103 Current Medications Current Medications Current Medications Acetaminophen (Tylenol Tab) 650 mg Q4HP PRN PO fever/MILD PAIN (PS 1-4); Start 10/06/18 at 16:30 Acetaminophen/ Hydrocodone Bitart ([place], Anexsia 5/325) 1 tab Q4HP PRN PO MODERATE PAIN (PS 5-7) Last administered on 10/11/18 21:51; Start 10/06/18 at 16:30 Acetaminophen/ Hydrocodone Bitart ([place], Anexsia 5/325) 2 tab Q4HP PRN PO SEVERE PAIN (PS 8-10) Last administered on 10/29/18 05:36; Start 10/06/18 at 16:30 Amiodarone HCl (Pacerone, Cordarone) 200 mg DAILY PO Last administered on 10/29/18 09:28; Start 10/07/18 at 09:00 Apixaban (Eliquis) 2.5 mg BID PO Last administered on 10/29/18 09:29; Start 10/06/18 at 21:00 Ascorbic Acid (Vitamin C) 500 mg DAILY PO Last administered on 10/29/18 09:28; Start 10/07/18 at 09:00 Atorvastatin Calcium (Lipitor) 10 mg QHS PO Last administered on 10/28/18at 21:05; Start 10/06/18 at 21:00 Bisacodyl (Dulcolax Suppository) 10 mg DAILYPRN PRN [place] CONSTIPATION; Start 10/06/18 at 16:30 Bupropion HCl (Wellbutrin Sr) 100 mg DAILY PO Last administered on 10/29/18 09:28; Start 10/07/18 at 09:00 Dextrose (Dextrose 50%) 25 ml ASDIRECTED PRN IV SEE LABEL COMMENTS; Start 10/06/18 at 16:45 Escitalopram Oxalate (Lexapro) 20 mg DAILY PO Last administered on 10/29/18 09:29; Start 10/07/18 at 09:00 Famotidine (Pepcid) 20 mg DAILY PO Last administered on 10/29/18 09:29; Start 10/07/18 at 09:00 Ferrous Gluconate (Fergon) 324 mg DAILY PO Last administered on 10/29/18at 09:28; Start 10/07/18 at 09:00 Furosemide (Lasix) 20 mg DAILY PO Last administered on 10/17/18at 08:54; Start 10/11/18 at 09:00; Stop 10/17/18 at 09:01; Status DC Furosemide (Lasix) 20 mg DAILY PO Last administered on 10/26/18at 08:34; Start 10/18/18 at 09:00; Stop 10/26/18 at 09:53; Status DC Glucagon (Glucagon) 1 mg ASDIRECTED PRN SC SEE LABEL COMMENTS; Start 10/06/18 at 16:45 Glucose (Glucose) 16 GM ASDIRECTED PRN PO SEE LABEL COMMENTS; Start 10/06/18 at 16:45 Home Med (Med Rec Complete!) ASDIRECTED XX ; Start 10/06/18 at 17:30; Stop 10/06/18 at 17:30; Status DC Hydralazine HCl (Apresoline) 12.5 mg Q8H PO Last administered on 10/29/18at 14:49; Start 10/13/18 at 14:00 Insulin Detemir (Levemir Insulin) 5 units QHS SC Last administered on 10/28/18at 21:06; Start 10/15/18 at 21:00 Insulin Detemir (Levemir Insulin) 45 units DAILY SC Last administered on 10/12/18at 09:07; Start 10/07/18 at 09:00; Stop 10/12/18 at 16:18; Status DC Insulin Human Lispro (HumaLOG INSULIN) SEE PROTOCOL TABLE AC SC Last administered on 10/29/18at 12:50; Start 10/06/18 at 17:30 Insulin Human Lispro (HumaLOG INSULIN) See Protocol Table QHS SC ; Start 10/06/18 at 21:00 Lactulose (Cephulac) 30 ml DAILY PO Last administered on 10/13/18at 08:15; Start 10/07/18 at 09:00 Magnesium Hydroxide (Milk Of Magnesia) 30 ml DAILYPRN PRN PO CONSTIPATION; Start 10/06/18 at 16:30 Metoprolol Succinate (TopROL XL) 25 mg DAILY PO Last administered on 10/29/18at 09:29; Start 10/28/18 at 09:00 Metoprolol Succinate (TopROL XL) 75 mg DAILY PO Last administered on 10/27/18 09:08; Start 10/19/18 at 09:00; Stop 10/27/18 at 13:22; Status DC Metoprolol Succinate (TopROL XL) 100 mg DAILY PO Last administered on 10/17/18 08:55; Start 10/07/18 at 09:00; Stop 10/18/18 at 10:48; Status DC Miscellaneous (Unresolved Clarification Entry) SEE LABEL COMMENTS DAILY XX ; Start 10/12/18 at 09:00; Stop 10/13/18 at 07:15; Status DC Miscellaneous (Unresolved Clarification Entry) SEE LABEL COMMENTS DAILY XX ; Start 10/13/18 at 09:00; Stop 10/13/18 at 09:35; Status DC Miscellaneous (Unresolved Clarification Entry) SEE LABEL COMMENTS DAILY XX ; Start 10/14/18 at 09:00; Stop 10/14/18 at 09:00; Status DC Miscellaneous (Unresolved Clarification Entry) SEE LABEL COMMENTS DAILY XX Last administered on 10/24/18at 11:46; Start 10/24/18 at 09:00; Stop 10/24/18 at 14:58; Status DC Pregabalin (Lyrica) 150 mg BID PO Last administered on 10/29/18 09:28; Start 10/06/18 at 21:00 Senna/Docusate Sodium (Senokot S) 1 tab BID PO Last administered on 10/28/18 21:04; Start 10/06/18 at 21:00 Tamsulosin HCl (Flomax) 0.4 mg DAILY PO Last administered on 10/29/18 09:28; Start 10/07/18 at 09:00 Vitamin D (Vitamin D) 1,000 units DAILY PO Last administered on 10/29/18 09:29; Start 10/07/18 at 09:00 KARLA ULLOA MD Oct 29, 2018 15:46
[2018-10-29 20:00] VITALS: BP 158/77
[2018-10-29] MEDS: LEVEMIR (INSULIN DETEMIR) 1 UNITS/0.01ML SC SCH (21:24)
[2018-10-29] MEDS: ATORVASTATIN 10 MG TAB PO SCH (21:25)
[2018-10-29] MEDS ORDERED: IPRATROPIUM 0.5MG/ALBUTEROL 2.5MG INH SOL UD 3ML (DUONEB)(J7620) NEB ONE (23:00)
[2018-10-29] MEDS ORDERED: FUROSEMIDE 100 MG/10 ML VIAL (J1940) IV ONE (23:30)
[2018-10-30 00:42] LABS: INFLUENZA A AMPLIFICATION NEGATIVE (NEGATIVE); INFLUENZA B AMPLIFICATION NEGATIVE (NEGATIVE)
--- NOTE | 2018-10-30 00:51 | IPNPDOC ---
Text Note Date of Service The patient was seen on 10/30/18. NOTE I was called to ARU to evaluate for shortness of breath. Subjective: Patient has not been feeling well all day, he states he feels under the weather. He has a PMHx significant for CHF, and states over the last few hours he has felt a bit more SOB, which worsens when he lays flat. He is also having more SOB with exertion. He is finishing 1 L of normal saline. He just started to wheeze, but denies nausea, vomiting, diarrhea, constipation, fever or chills. Objective: General: Elderly, obese male in mild distress, but with mildly labored breathing. HEENT: Mucous membranes are moist. Patient does cough. Lungs: Diffuse tight wheezes in the apices, bilaterally. Crackles at the right base with diminished breath sounds. Mild dullness to percussion at the right base. Heart: Regular rate and rhythm; no murmurs, gallops, or rubs. PMI is displaced to the left. Abdomen: Obese, positive bowel sounds, no pain to palpation. Chest X-ray: Airway is straight, suze structures are intact, cardiac silhouette is enlarged, left diaphragm has a relatively clear angle, right diaphragm has mild blunting of the costophrenic angle. The major fissure is prominent, suggesting pulmonary edema. Assessment: Patient with hx of CHF with worsening of SOB after receiving 1 L Fluid bolus. Probably volume overloaded. Plan: 1. CHF with volume overload. 80 mg IV lasix, DC IVF. Patient should continue with his fluid restriction. 2. Wheezing. Duoneb treatment ordered, will swab for Flu/RSV. VS,Fishbone, I+O VS, Fishbone, I+O Laboratory Tests 10/29/18 06:15 Calcium Level 8.0 L Vital Signs Date Time Temp Pulse Resp B/P (MAP) Pulse Ox O2 Delivery O2 Flow Rate FiO2 10/29/18 21:25 158/77 10/29/18 20:00 97.6 58 19 92 10/26/18 20:03 2.0 I&O- Last 24 Hours up to 6 AM 10/30/18 06:00 Intake Total 1260 ml Output Total 700 ml Balance 560 ml GME ATTESTATION GME ATTESTATION My faculty preceptor for this patient encounter was physically present during the encounter and was fully available. All aspects of the patient interview, examination, medical decision making process, and medical care plan development were reviewed and approved by the faculty preceptor. The faculty preceptor is aware and concurs with the plan as stated in the body of this note and will attest to such by his/her cosignature. CHALINO LU DO Oct 30, 2018 00:51
[2018-10-30 00:59] LABS: APPEARANCE, URINE CLEAR (CLEAR); BACTERIA, URINE AUTO NEGATIVE (NEGATIVE); BILIRUBIN, URINE AUTO NEGATIVE (NEGATIVE); BLOOD, URINE BLOOD NEGATIVE (NEGATIVE); COLOR, URINE STRAW (YELLOW); GLUCOSE, URINE (UA) AUTO NEGATIVE (NEGATIVE); KETONE, URINE AUTO NEGATIVE (NEGATIVE); LEUKOCYTE ESTERASE, URINE AUTO NEGATIVE (NEGATIVE); MUCUS, URINE SMALL (NEGATIVE); NITRITE, URINE AUTO NEGATIVE (NEGATIVE); PROTEIN, URINE AUTO NEGATIVE (NEGATIVE); RBC, URINE AUTO 1 /HPF (0-3); SPECIFIC GRAVITY URINE AUTO 1.006 (1.002-1.035); SQUAMOUS EPITHELIAL CELL UR AU 0 /HPF (0-6); UROBILINOGEN, URINE AUTO 0.2 mg/dL (0.0-2.0); WBC, URINE AUTO 1 /HPF (0-3)
[2018-10-30 06:00] VITALS: BP 122/70
[2018-10-30] MEDS: **hydrALAZINE HCL** 25 MG TAB PO SCH ×3 (06:46→21:52)
[2018-10-30 07:14] LABS: CALCIUM LEVEL 7.8 MG/DL (8.8-10.2); CREATININE FOR GFR 2.14 MG/DL (0.70-1.30); GLOMERULAR FILTRATION RATE 32.8 (>49); POTASSIUM SERUM 4.6 MEQ/L (3.5-5.1)
--- NOTE | 2018-10-30 08:12 | REP ---
AP PORTABLE CHEST: 10/29/2018. Comparison: 09/29/2018. Clinical history: Dyspnea. There is cardiomegaly with left atrial and ventricular enlargement. Bibasilar infiltrates. There is fluid in the minor fissure and small effusion suspected. Some venous hypertension noted. Early interstitial edema suspected. The aorta is tortuous and calcified. Degenerative changes in the spine. Impression: 1. Cardiomegaly with some venous hypertension, mild interstitial edema with Jeet B lines and small effusions. 2. Bibasilar consolidative opacities representing alveolar edema or infiltrates. Electronically Signed by Harry Sloan MD 10/30/2018 09:28 A
[2018-10-30] MEDS: buPROPion (WELLBUTRIN SR) 100 MG SR TAB PO SCH (08:32)
[2018-10-30] MEDS: VITAMIN D 1,000 INTERNATIONAL UNITS TABLET PO SCH (08:32)
[2018-10-30] MEDS: FERROUS GLUCONATE 324 MG TAB PO SCH (08:32)
[2018-10-30] MEDS: AMIODARONE 200 MG TAB (PACERONE) PO SCH (08:32)
[2018-10-30] MEDS: FAMOTIDINE 20 MG TAB PO SCH (08:32)
[2018-10-30] MEDS: LACTULOSE 20 GM/30 ML SYRUP UD PO SCH (08:33)
[2018-10-30] MEDS: ESCITALOPRAM OXALATE 10 MG TAB (LEXAPRO) PO SCH (08:33)
[2018-10-30] MEDS: TAMSULOSIN 0.4 MG CAP PO SCH (08:33)
[2018-10-30] MEDS: APIXABAN 2.5 MG TAB (ELIQUIS) PO SCH ×2 (08:33→21:51)
[2018-10-30] MEDS: ASCORBIC ACID 500 MG TAB PO SCH (08:33)
[2018-10-30] MEDS: METOPROLOL SUCC *XL* 25MG TAB (TopROL *XL*) PO SCH (08:34)
[2018-10-30] MEDS: SENOKOT S TAB PO SCH ×2 (08:34→21:52)
[2018-10-30] MEDS: HumaLOG INSULIN (NovoLOG) PER UNIT SC SCH ×4 (08:35→21:53)
[2018-10-30] MEDS: PREGABALIN 75 MG CAP(LYRICA) PO SCH ×2 (08:35→21:52)
[2018-10-30] MEDS ORDERED: FUROSEMIDE 100 MG/10 ML VIAL (J1940) IV ONE (13:45)
--- NOTE | 2018-10-30 13:48 | IPNPDOC ---
Text Note Date of Service The patient was seen on 10/30/18. NOTE Subjective: Patient is a 7-year-old male with a PMHx of A. fib (on Eliquis), CAD s/p stent, Hx of TIA, IDDM2, CKD3, BPH, Depression, Chronic pain and GERD who presents to the ER after he fell on his Right hip. In the ER he was found to have a right intertrochanteric femoral fracture. He was admitted to the hospitalist service with orthopedic surgery on consult. He received a right hip trochanteric fixation nailing (TFN) for intertrochanteric hip fracture. Patient was transferred to the service of [facility] Fenton on 10/06/18. Patient was seen and examined at the bedside. He was sitting up in a chair and knitting. Patient notes that he's got a stuffy nose. Denies any shortness of breath, chest pain or any significant cough. Denies any nausea, vomiting, abdominal pain, constipation, diarrhea or discomfort with urination. Objective: Vitals (See below) General: Lying in bed, no acute distress, comfortable, AAOx3 HEENT: NC, AT CVS: RRR, +S1S2 Lungs: Fair air entry b/l, auscultations without rhonchi, rales or wheezing Abdomen: Soft, nondistended, without tenderness Extremities: LE reveal trace edema, - Calf tenderness, Assessment and plan: Mechanical fall with R Femur fracture - s/p correction on 09/30/2018 - Presented to the ER after patient had a mechanical fall and had severe right hip pain - s/p OR intervention with Dr. Broussard (09/30) and cardiac clearance for Dr. Mendez - Pain control, bowel regimen and physical therapy as per ARU - Continues to work with physical therapy Nasal congestion - Will start saline nasal spray Atrial fibrillation - c/w rate / rhythm control with metoprolol / amiodarone - c/w full anticoagulation with Eliquis CAD s/p stent (2000) - c/w Atorvastatin - Patient follows with cardiology, Dr. Johnson as an outpatient HTN - BP well controlled - c/w Metoprolol and Hydralazine Diastolic CHF - Trace edema noted bilaterally, no significant crackles - BP well controlled - in low/mid 140s - Elevated BNP - CXR 2/16: 1. Cardiomegaly with some venous hypertension, mild interstitial edema with Jeet B lines and small effusions. 2. Bibasilar consolidative opacities representing alveolar edema or infiltrates. - ECHO 09/28: DD2, Preserved EF - c/w Hydralazine, Metoprolol - Will give additional dose of Furosemide today Hx of TIA with mild residual left-sided weakness - c/w Atorvastatin IDDM2 with hyperglycemia - c/w ISS and Levemir Neuropathy - c/w Pregabalin Elevated Cr on CKD3 - possibly 2/2 cardiorenal syndrome - Cr currently elevated from baseline - Cr baseline of ~1.8 - Will provide diuresis s/p Hematuria - likely 2/2 Hdez catheter - Urinalysis repeated does show improvement in the microhematuria Normocytic anemia - possibly 2/2 PABLO - Currently does not appear to be having any signs of bleeding - Hemoglobin remained stable - Will continue to monitor Depression - c/w Escitalopram BPH - c/w Tamsulosin Chronic pain - c/w Tramadol GERD - c/w Famotidine and Omeprazole DVT prophylaxis - c/w full anticoagulation with Eliquis VS,Fishbone, I+O VS, Fishbone, I+O Laboratory Tests 10/30/18 06:15 Calcium Level 7.8 L Vital Signs Date Time Temp Pulse Resp B/P (MAP) Pulse Ox O2 Delivery O2 Flow Rate FiO2 10/30/18 08:34 54 120/70 10/30/18 06:00 97.4 20 95 2.0 I&O- Last 24 Hours up to 6 AM 10/30/18 06:00 Intake Total 2220 ml Output Total 3075 ml Balance -855 ml ROZ ENRIQUEZ MD Oct 30, 2018 13:48
[2018-10-30 14:00] VITALS: BP 142/78
[2018-10-30] MEDS: SODIUM CHLORIDE NASAL 0.65% SPRAY BTL (OCEAN) SCH ×2 (16:33→21:53)
[2018-10-30] MEDS: IPRATROPIUM 0.5MG/ALBUTEROL 2.5MG INH SOL UD 3ML (DUONEB)(J7620) NEB PRN (17:36)
[2018-10-30 20:00] VITALS: BP 158/78
[2018-10-30] MEDS: ATORVASTATIN 10 MG TAB PO SCH (21:52)
[2018-10-30] MEDS: LEVEMIR (INSULIN DETEMIR) 1 UNITS/0.01ML SC SCH (21:53)
[2018-10-30] MEDS: NORCO, ANEXSIA 5/325MG TABLET (HYDROcodone/ACETAMINOPHEN) PO PRN (23:23)
[2018-10-31] MEDS: **hydrALAZINE HCL** 25 MG TAB PO SCH ×3 (05:34→21:32)
[2018-10-31] MEDS: IPRATROPIUM 0.5MG/ALBUTEROL 2.5MG INH SOL UD 3ML (DUONEB)(J7620) NEB PRN (05:46)
[2018-10-31 06:00] VITALS: BP 140/76
[2018-10-31 08:16] LABS: CALCIUM LEVEL 8.5 MG/DL (8.8-10.2); CREATININE FOR GFR 1.86 MG/DL (0.70-1.30); GLOMERULAR FILTRATION RATE 38.5 (>49)
[2018-10-31] MEDS: SODIUM CHLORIDE NASAL 0.65% SPRAY BTL (OCEAN) SCH ×2 (09:00→21:32)
[2018-10-31] MEDS: METOPROLOL SUCC *XL* 25MG TAB (TopROL *XL*) PO SCH (09:00)
[2018-10-31] MEDS: LACTULOSE 20 GM/30 ML SYRUP UD PO SCH (09:00)
[2018-10-31] MEDS: SENOKOT S TAB PO SCH ×2 (09:00→21:00)
[2018-10-31] MEDS: AMIODARONE 200 MG TAB (PACERONE) PO SCH (10:04)
[2018-10-31] MEDS: buPROPion (WELLBUTRIN SR) 100 MG SR TAB PO SCH (10:04)
[2018-10-31] MEDS: ESCITALOPRAM OXALATE 10 MG TAB (LEXAPRO) PO SCH (10:04)
[2018-10-31] MEDS: VITAMIN D 1,000 INTERNATIONAL UNITS TABLET PO SCH (10:04)
[2018-10-31] MEDS: ASCORBIC ACID 500 MG TAB PO SCH (10:04)
[2018-10-31] MEDS: PREGABALIN 75 MG CAP(LYRICA) PO SCH ×2 (10:05→21:31)
[2018-10-31] MEDS: FAMOTIDINE 20 MG TAB PO SCH (10:05)
[2018-10-31] MEDS: APIXABAN 2.5 MG TAB (ELIQUIS) PO SCH ×2 (10:05→21:31)
[2018-10-31] MEDS: TAMSULOSIN 0.4 MG CAP PO SCH (10:06)
[2018-10-31] MEDS: NORCO, ANEXSIA 5/325MG TABLET (HYDROcodone/ACETAMINOPHEN) PO PRN ×2 (10:06→21:35)
[2018-10-31] MEDS: HumaLOG INSULIN (NovoLOG) PER UNIT SC SCH ×4 (10:08→21:00)
[2018-10-31] MEDS: FERROUS GLUCONATE 324 MG TAB PO SCH (10:09)
[2018-10-31 14:00] VITALS: BP 159/70
--- NOTE | 2018-10-31 16:04 | IPNPDOC ---
Text Note Date of Service The patient was seen on 10/31/18. NOTE Subjective: Patient is a 7-year-old male with a PMHx of A. fib (on Eliquis), CAD s/p stent, Hx of TIA, IDDM2, CKD3, BPH, Depression, Chronic pain and GERD who presents to the ER after he fell on his Right hip. In the ER he was found to have a right intertrochanteric femoral fracture. He was admitted to the hospitalist service with orthopedic surgery on consult. He received a right hip trochanteric fixation nailing (TFN) for intertrochanteric hip fracture. Patient was transferred to the service of [facility] Fenton on 10/06/18. Patient was seen and examined while working with physical therapy. Patient noted that he's feeling much better today. Denied any shortness of breath or chest pain noted that his leg swelling has had some improvement. Denies nausea or vomiting. Denies any abdominal pain, constipation or diarrhea. He noted that he had urinated a lot yesterday, but did not experience any discomfort. Objective: Vitals (See below) General: Lying in bed, no acute distress, comfortable, AAOx3 HEENT: NC, AT CVS: RRR, +S1S2 Lungs: Fair air entry b/l, auscultation, there does not appear to be any wheezing, rhonchi or rales Abdomen: Soft, nondistended, without tenderness Extremities: LE still reveals trace edema trace edema, - Calf tenderness, Assessment and plan: Mechanical fall with R Femur fracture - s/p correction on 09/30/2018 - Presented to the ER after patient had a mechanical fall and had severe right hip pain - s/p OR intervention with Dr. Broussard (09/30) and cardiac clearance for Dr. Mendez - Pain control, bowel regimen and physical therapy as per ARU - Continues to work with physical therapy Acute decompensated diastolic CHF - Trace edema noted bilaterally, no significant crackles - BP well controlled - in low/mid 140s - Elevated BNP - CXR 10/30: 1. Cardiomegaly with some venous hypertension, mild interstitial edema with Jeet B lines and small effusions. 2. Bibasilar consolidative opacities representing alveolar edema or infiltrates. - ECHO 09/28: DD2, Preserved EF - c/w Hydralazine, Metoprolol - Patient had acute amount of diuresis after giving 1 dose of Lasix 80 IV - Will give additional dose of Furosemide 40 IV today Nasal congestion - c/w saline nasal spray Atrial fibrillation - c/w rate / rhythm control with metoprolol / amiodarone - c/w full anticoagulation with Eliquis CAD s/p stent (2000) - c/w Atorvastatin - Patient follows with cardiology, Dr. Johnson as an outpatient HTN - BP well controlled - c/w Metoprolol and Hydralazine Hx of TIA with mild residual left-sided weakness - c/w Atorvastatin IDDM2 with hyperglycemia - c/w ISS and Levemir Neuropathy - c/w Pregabalin s/p Elevated Cr on CKD3 - possibly 2/2 cardiorenal syndrome - Cr baseline of ~1.8 - Cr has improved and is approaching baseline - Will c/w diuresis s/p Hematuria - likely 2/2 Hdez catheter - Urinalysis repeated does show improvement in the microhematuria Normocytic anemia - possibly 2/2 PABLO - Currently does not appear to be having any signs of bleeding - Hemoglobin remained stable - Will continue to monitor Depression - c/w Escitalopram BPH - c/w Tamsulosin Chronic pain - c/w Tramadol GERD - c/w Famotidine and Omeprazole DVT prophylaxis - c/w full anticoagulation with Eliquis VS,Fishbone, I+O VS, Fishbone, I+O Laboratory Tests 10/31/18 07:28 Calcium Level 8.5 L Vital Signs Date Time Temp Pulse Resp B/P (MAP) Pulse Ox O2 Delivery O2 Flow Rate FiO2 10/31/18 14:00 159/70 10/31/18 14:00 97.5 68 18 93 10/31/18 06:00 2.0 I&O- Last 24 Hours up to 6 AM 10/31/18 06:00 Intake Total 980 ml Output Total 5025 ml Balance -4045 ml ROZ ENRIQUEZ MD Oct 31, 2018 16:04
[2018-10-31] MEDS ORDERED: FUROSEMIDE 40 MG/4 ML VIAL (J1940) IV ONE (16:15)
[2018-10-31 20:00] VITALS: BP 157/74
[2018-10-31] MEDS: ATORVASTATIN 10 MG TAB PO SCH (21:31)
[2018-10-31] MEDS: LEVEMIR (INSULIN DETEMIR) 1 UNITS/0.01ML SC SCH (21:32)
[2018-11-01 06:00] VITALS: BP 158/80
[2018-11-01] MEDS: **hydrALAZINE HCL** 25 MG TAB PO SCH ×3 (06:11→21:19)
[2018-11-01 07:31] LABS: CALCIUM LEVEL 8.4 MG/DL (8.8-10.2); CREATININE FOR GFR 1.7 MG/DL (0.70-1.30); GLOMERULAR FILTRATION RATE 42.8 (>49); POTASSIUM SERUM 4.8 MEQ/L (3.5-5.1)
[2018-11-01] MEDS: TAMSULOSIN 0.4 MG CAP PO SCH (07:57)
[2018-11-01] MEDS: HumaLOG INSULIN (NovoLOG) PER UNIT SC SCH ×4 (07:57→21:00)
[2018-11-01] MEDS: METOPROLOL SUCC *XL* 25MG TAB (TopROL *XL*) PO SCH (07:58)
[2018-11-01] MEDS: ESCITALOPRAM OXALATE 10 MG TAB (LEXAPRO) PO SCH (07:58)
[2018-11-01] MEDS: FERROUS GLUCONATE 324 MG TAB PO SCH (07:58)
[2018-11-01] MEDS: ASCORBIC ACID 500 MG TAB PO SCH (07:58)
[2018-11-01] MEDS: FAMOTIDINE 20 MG TAB PO SCH (07:58)
[2018-11-01] MEDS: VITAMIN D 1,000 INTERNATIONAL UNITS TABLET PO SCH (07:58)
[2018-11-01] MEDS: AMIODARONE 200 MG TAB (PACERONE) PO SCH (07:58)
[2018-11-01] MEDS: LACTULOSE 20 GM/30 ML SYRUP UD PO SCH (07:59)
[2018-11-01] MEDS: buPROPion (WELLBUTRIN SR) 100 MG SR TAB PO SCH (07:59)
[2018-11-01] MEDS: SENOKOT S TAB PO SCH ×2 (07:59→21:18)
[2018-11-01] MEDS: APIXABAN 2.5 MG TAB (ELIQUIS) PO SCH ×2 (07:59→21:18)
[2018-11-01] MEDS: PREGABALIN 75 MG CAP(LYRICA) PO SCH ×2 (07:59→21:20)
[2018-11-01] MEDS: NORCO, ANEXSIA 5/325MG TABLET (HYDROcodone/ACETAMINOPHEN) PO PRN ×2 (08:01→21:21)
[2018-11-01] MEDS: SODIUM CHLORIDE NASAL 0.65% SPRAY BTL (OCEAN) SCH ×2 (08:04→21:17)
--- NOTE | 2018-11-01 12:33 | IPNPDOC ---
Date Seen The patient was seen on 11/01/18. Progress Note HPI: Mr. Mills is a 67-year-old who reported being in his usual state of health until the evening of admission when he was visiting his daughter at her place of employment when he slipped and fell on his right hip to the ground. He subsequently felt pain and was unable to raise off the ground. Activated EMS and presented to the emergency room. Imaging revealing right intertrochanteric femoral fracture. Orthopedics was consulted. S/P right hip trochanteric fixation nailing (TFN) for intertrochanteric hip fracture. Pt was transferred to ARU, Dr Albarran, 10/06/18. The pt felt SOB 10/30/18. IV lasix given 10/30, 10/31, 11/01. Denies any fevers, chills, weakness, fatigue, Headache, Chest Pain, Shortness of breath, cough, palpitations, abdominal pain, N/V/D or changes in bowel or bladder habits. PMHx: DM HTN HLD CAD GERD CHF TTE 09/28/18 EF 65%, DD. PSHX: Cholecystectomy. CAD with stent placement 2000. PE: GEN: 67yoM, appears stated age. No acute distress. Alert and oriented x 3. Pleasant, interactive. HEENT: Normocephalic, atraumatic. Sclera are nonicteric. Conjunctiva without injection. Moist mucous membranes. CHEST: Regular rate and rhythm, +S1, +S2 LUNGS: Clear to auscultation bilaterally. No wheezes, rales, or rhonchi. ABD: Round, soft, non-tender, non-distended. +Bowel sounds throughout. No rebound or guarding. EXT: tr to 1mm lower extremity edema appreciated B/L distal pretib area. TEDS in place. SKIN: [place], dry, warm. No rashes. NEURO: Alert and oriented x 3. Cranial nerves III-XII are intact. No focal deficits appreciated. A&P: Mr. Mills is a 67-year-old who reported being in his usual state of health until the evening of admission when he was visiting his daughter at her place of employment when he slipped and fell on his right hip to the ground. He subsequently felt pain and was unable to raise off the ground. Activated EMS and presented to the emergency room. Imaging revealing right intertrochanteric femoral fracture. Orthopedics was consulted. S/P right hip trochanteric fixation nailing (TFN) for intertrochanteric hip fracture. Pt was transferred to ARU, Dr Albarran, 10/06/18. 1. Mechanical fall resulting in right intertrochanteric femur fracture/IM nail right hip on 09/30/2018. Management as per Orthopedics. PT/OT/ST as per ARU Pain control as per ARU Bowel care as per ARU Disposition as per ARU DVT px. Continue Eliquis 2.5mg by mouth twice daily for anticoagulation. X-ray right hip completed 10/28/18 is negative for fracture. 2. 11. HTN/HHD/LVH EF 65%/DD. S/P Lasix IV. Hydralazine 12.5 mg Q8. Toprol XL 25 mg SCr 2.21 Caution with IVF. BMP in AM 3. Chronic kidney disease, stage III: Baseline 1.6-1.8 Lasix on hold since 10/26/18. Creatinine noted to be 1.70. Monitor I/O. Monitor daily wt 1800cc FR BMP in AM 4. Hematuria: Status post Hdez catheter. Follow-up urinalysis has normalized. Could consider outpatient follow-up with urology. 5. Iron deficiency Anemia Started iron supplement daily with vitamin C. Peripheral smear Normocytic anemia; patient is status-post hip surgery. No blasts identified. Minimal thrombocytopenia with normal platelet morphology. Folate 8.7. Vitamin B12 level WNL. Hgb stable. 6. Diabetes mellitus with hyperglycemia and neuropathy: CC diet. Pt readily admits he follows diet much differently while here. Levemir SSI. Lyrica Monitor BS. 7. Recent diagnosis of atrial fibrillation. Continue Eliquis, Toprol XL, and amiodarone. 8. Depression: Continue Lexapro. 9. Gastroesophageal reflux disease: Continue famotidine and omeprazole. 10. Benign prostatic hyperplasia: Continue Flomax. 11. Coronary artery disease status-post cardiac stenting: Follows with Dr. Johnson. Status-post stenting in 2000. 12. History of TIA/CVA: Residual left-sided weakness. Monitor. VS, I&O, 24H, Fishbone Vital Signs/I&O Vital Signs Date Time Temp Pulse Resp B/P (MAP) Pulse Ox O2 Delivery O2 Flow Rate FiO2 11/01/18 08:35 18 11/01/18 07:58 72 158/80 11/01/18 06:00 98.0 92 10/31/18 06:00 2.0 I&O- Last 24 Hours up to 6 AM 11/01/18 06:00 Intake Total 1080 ml Output Total 3900 ml Balance -2820 ml Laboratory Data 24H LABS Laboratory Tests 2 10/31/18 16:39: Bedside Glucose (Misc Panel) 163H 10/31/18 20:05: Bedside Glucose (Misc Panel) 228H 11/01/18 05:15: Bedside Glucose (Misc Panel) 204H 11/01/18 06:58: Anion Gap 5L, Glomerular Filtration Rate 42.8L, Blood Urea Nitrogen 46H, Creati nine 1.70H, Sodium Level 141, Potassium Level 4.8, Chloride Level 106, Carbon Dioxide Level 30, Calcium Level 8.4L CBC/BMP Laboratory Tests 11/01/18 06:58 Calcium Level 8.4 L Sharron Cartwright Nov 01, 2018 12:33
[2018-11-01 14:00] VITALS: BP 140/72
--- NOTE | 2018-11-01 17:11 | IPNPDOC ---
PM&R Progress Note DATE OF SERVICE: Nov 01, 2018 Social Sciences Department Chair Progress Note Subjective: Patient reports he feels much better, his breathing is improved and he is more optimistic about returning home. REVIEW OF SYSTEMS: The following is a completed review of systems and has been reviewed. Review of systems otherwise unremarkable. PAIN: Patient self reports right hip pain EYES: Negative for recent vision changes EARS, NOSE, & THROAT:no dysphagia or rhinorrhea CARDIOVASCULAR: +Afib, denies chest pain PULMONARY: Negative. Denies shortness of breath. GASTROINTESTINAL: Negative for constipation or diarrhea GENITOURINARY:+retention (improving) MUSCULOSKELETAL: right hip fracture NEUROLOGICAL: no tremor, no focal weakness, +diabetic neuropathy HEMATOLOGICAL:no ecchymosis SKIN: right hip incision PSYCHIATRIC: Unremarkable All other review of systems found to be negative. PHYSICAL EXAMINATION: VITAL SIGNS: Please see below. GENERAL: Pleasant and cooperative. No acute distress. HEENT: PERRL. Extraocular movements intact. Clear conjunctiva CARDIOVASCULAR: Irregular rate and rhythm. No murmurs, rubs, or gallops LUNGS: Clear to auscultation bilaterally. No wheezes. No rhonchi ABDOMEN: Soft, nontender, mildly distended. Positive bowel sounds. Normal active bowel sounds NEUROLOGICAL: Alert and oriented times three. Cranial nerves II through XII grossly intact. Sensation diminished in stocking pattern lower extremities EXTREMITIES: 5\5 strength bilateral upper extremities. 5-\5 strength ankle DF and EHL did not test right hip flexors or knee extensors due to pain 5-/5 strength in left lower extremity. SKIN: right hip incisions c/d/i, no surrounding induration or erythema +bilateral edema-improving ASSESSMENT:67-year-old M with past medical history of CAD sp stent, Afib, DM who presents status post fall with right hip fracture. PLAN: 1. Rehab: OT, PT assess for DME, able to ambulate further RW, will work on Mod-I bed to commode transfers, will hold room privileges given fall 10/28 and plan for reinstating them tomorrow 2. Ortho: s.p right hip ORIF, ortho consulted, WBAT, greg removed, s/p fall on unit hip X-rays negative for new fracture, no head trauma 2. Neuro: pmh CVA/TIA, continue secondary stroke prevention measures- statin, ASA, and BP management 3. CArdio: pmh Afib on amiodarone and low dose Eliquis, chronic diastolic HF and HTN, continue home meds and monitor, beta-diana dose lowered for bradycardia- improving - medicine consulted 4. Endo: pmh DM, continue insulin therapy, will order nutrition consult per patient request to assist with weight loss- 5units long-acting qHS and continue premeal SS-satble 6. 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 DVT ppx: on eliquis, TEDs 6. Pain: Tylenol and [place] prn, ICE TID, will titrate down [place] to 1 tab only q4prn 7. Psych: depression, continue Wellbutrin and Lexapro 8. resp: Incentive spirometry, monitor for cough-stable 9. Skin: bilateral LE edema, alyson wrap and elevate legs while in bed-improving 10. : admission Ua and Ucx negative, repeat UA negative 9. Dispo: changed date to 11/04 to home given patient fell today while packing hi s clothes will work more on stairs and fall prevention progressing toward goals Allergies Coded Allergies: Latex (Verified Allergy, Unknown, Hives, 09/28/18) had reaction to rubber gloves-hives Penicillins (Verified Allergy, Unknown, 01/07/14) Vital Signs Vital Signs Date Time Temp Pulse Resp B/P (MAP) Pulse Ox O2 Delivery O2 Flow Rate FiO2 11/01/18 14:30 140/72 11/01/18 14:00 97.1 53 18 95 10/31/18 06:00 2.0 Laboratory Data CBC/BMP Laboratory Tests 11/01/18 06:58 Calcium Level 8.4 L Labs 24H Laboratory Tests 2 10/31/18 20:05: Bedside Glucose (Misc Panel) 228H 11/01/18 05:15: Bedside Glucose (Misc Panel) 204H 11/01/18 06:58: Anion Gap 5L, Glomerular Filtration Rate 42.8L, Blood Urea Nitrogen 46H, Creatinine 1.70H, Sodium Level 141, Potassium Level 4.8, Chloride Level 106, Carbon Dioxide Level 30, Calcium Level 8.4L 11/01/18 16:42: Bedside Glucose (Misc Panel) 177H Current Medications Current Medications Current Medications Acetaminophen (Tylenol Tab) 650 mg Q4HP PRN PO fever/MILD PAIN (PS 1-4); Start 10/06/18 at 16:30 Acetaminophen/ Hydrocodone Bitart ([place], Anexsia 5/325) 1 tab Q4HP PRN PO MODERATE PAIN (PS 5-7) Last administered on 10/31/18at 10:06; Start 10/06/18 at 16:30 Acetaminophen/ Hydrocodone Bitart ([place], Anexsia 5/325) 2 tab Q4HP PRN PO SEVERE PAIN (PS 8-10) Last administered on 11/01/18 08:01; Start 10/06/18 at 16:30 Albuterol/ Ipratropium (Duoneb (Ipr 0.5mg/Alb 2.5mg)) 3 ml Q4HP PRN NEB SOB/WHEEZING Last administered on 10/31/18at 05:46; Start 10/30/18 at 17:00 Amiodarone HCl (Pacerone, Cordarone) 200 mg DAILY PO Last administered on 11/01/18 07:58; Start 10/07/18 at 09:00 Apixaban (Eliquis) 2.5 mg BID PO Last administered on 11/01/18at 07:59; Start 10/06/18 at 21:00 Ascorbic Acid (Vitamin C) 500 mg DAILY PO Last administered on 11/01/18at 07:58; Start 10/07/18 at 09:00 Atorvastatin Calcium (Lipitor) 10 mg QHS PO Last administered on 10/31/18at 21:31; Start 10/06/18 at 21:00 Bisacodyl (Dulcolax Suppository) 10 mg DAILYPRN PRN [place] CONSTIPATION; Start 10/06/18 at 16:30 Bupropion HCl (Wellbutrin Sr) 100 mg DAILY PO Last administered on 11/01/18at 07:59; Start 10/07/18 at 09:00 Dextrose (Dextrose 50%) 25 ml ASDIRECTED PRN IV SEE LABEL COMMENTS; Start 10/06/18 at 16:45 Escitalopram Oxalate (Lexapro) 20 mg DAILY PO Last administered on 11/01/18at 07:58; Start 10/07/18 at 09:00 Famotidine (Pepcid) 20 mg DAILY PO Last administered on 11/01/18at 07:58; Start 10/07/18 at 09:00 Ferrous Gluconate (Fergon) 324 mg DAILY PO Last administered on 11/01/18at 07:58; Start 10/07/18 at 09:00 Furosemide (Lasix) 20 mg DAILY PO Last administered on 10/17/18at 08:54; Start 10/11/18 at 09:00; Stop 10/17/18 at 09:01; Status DC Furosemide (Lasix) 20 mg DAILY PO Last administered on 10/26/18at 08:34; Start 10/18/18 at 09:00; Stop 10/26/18 at 09:53; Status DC Glucagon (Glucagon) 1 mg ASDIRECTED PRN SC SEE LABEL COMMENTS; Start 10/06/18 at 16:45 Glucose (Glucose) 16 GM ASDIRECTED PRN PO SEE LABEL COMMENTS; Start 10/06/18 at 16:45 Home Med (Med Rec Complete!) ASDIRECTED XX ; Start 10/06/18 at 17:30; Stop 10/06/18 at 17:30; Status DC Hydralazine HCl (Apresoline) 12.5 mg Q8H PO Last administered on 11/01/18at 14:30; Start 10/13/18 at 14:00 Insulin Detemir (Levemir Insulin) 5 units QHS SC Last administered on 10/31/18at 21:32; Start 10/15/18 at 21:00 Insulin Detemir (Levemir Insulin) 45 units DAILY SC Last administered on 10/12/18at 09:07; Start 10/07/18 at 09:00; Stop 10/12/18 at 16:18; Status DC Insulin Human Lispro (HumaLOG INSULIN) SEE PROTOCOL TABLE AC SC Last administered on 11/01/18at 12:48; Start 10/06/18 at 17:30 Insulin Human Lispro (HumaLOG INSULIN) See Protocol Table QHS SC Last administered on 10/30/18at 21:53; Start 10/06/18 at 21:00 Lactulose (Cephulac) 30 ml DAILY PO Last administered on 10/13/18at 08:15; Start 10/07/18 at 09:00 Magnesium Hydroxide (Milk Of Magnesia) 30 ml DAILYPRN PRN PO CONSTIPATION; Start 10/06/18 at 16:30 Metoprolol Succinate (TopROL XL) 25 mg DAILY PO Last administered on 11/01/18at 07:58; Start 10/28/18 at 09:00 Metoprolol Succinate (TopROL XL) 75 mg DAILY PO Last administered on 10/27/18at 09:08; Start 10/19/18 at 09:00; Stop 10/27/18 at 13:22; Status DC Metoprolol Succinate (TopROL XL) 100 mg DAILY PO Last administered on 10/17/18at 08:55; Start 10/07/18 at 09:00; Stop 10/18/18 at 10:48; Status DC Miscellaneous (Unresolved Clarification Entry) SEE LABEL COMMENTS DAILY XX ; Start 10/12/18 at 09:00; Stop 10/13/18 at 07:15; Status DC Miscellaneous (Unresolved Clarification Entry) SEE LABEL COMMENTS DAILY XX ; Start 10/13/18 at 09:00; Stop 10/13/18 at 09:35; Status DC Miscellaneous (Unresolved Clarification Entry) SEE LABEL COMMENTS DAILY XX ; Start 10/14/18 at 09:00; Stop 10/14/18 at 09:00; Status DC Miscellaneous (Unresolved Clarification Entry) SEE LABEL COMMENTS DAILY XX Last administered on 10/24/18at 11:46; Start 10/24/18 at 09:00; Stop 10/24/18 at 14:58; Status DC Pregabalin (Lyrica) 150 mg BID PO Last administered on 11/01/18at 07:59; Start 10/06/18 at 21:00 Senna/Docusate Sodium (Senokot S) 1 tab BID PO Last administered on 10/30/18at 21:52; Start 10/06/18 at 21:00 Sodium Chloride ([place] Nasal [place]) 2 spray BID NA Last administered on 11/01/18 08:04; Start 10/30/18 at 14:00 Tamsulosin HCl (Flomax) 0.4 mg DAILY PO Last administered on 2/18/19at 07:57; Start 10/07/18 at 09:00 Vitamin D (Vitamin D) 1,000 units DAILY PO Last administered on 11/01/18at 07:58; Start 10/07/18 at 09:00 KARLA ULLOA MD Nov 01, 2018 17:11
[2018-11-01 20:00] VITALS: BP 148/78
[2018-11-01 20:15] VITALS: BP 148/78
[2018-11-01] MEDS: LEVEMIR (INSULIN DETEMIR) 1 UNITS/0.01ML SC SCH (21:17)
[2018-11-01] MEDS: ATORVASTATIN 10 MG TAB PO SCH (21:18)
[2018-11-02] MEDS: **hydrALAZINE HCL** 25 MG TAB PO SCH ×3 (05:26→21:03)
[2018-11-02] MEDS: NORCO, ANEXSIA 5/325MG TABLET (HYDROcodone/ACETAMINOPHEN) PO PRN ×2 (05:26→12:46)
[2018-11-02 06:00] VITALS: BP 155/84
[2018-11-02 07:52] LABS: CALCIUM LEVEL 8.3 MG/DL (8.8-10.2); CREATININE FOR GFR 1.64 MG/DL (0.70-1.30); GLOMERULAR FILTRATION RATE 44.6 (>49); POTASSIUM SERUM 5.2 MEQ/L (3.5-5.1)
[2018-11-02] MEDS: FERROUS GLUCONATE 324 MG TAB PO SCH (08:37)
[2018-11-02] MEDS: TAMSULOSIN 0.4 MG CAP PO SCH (08:37)
[2018-11-02] MEDS: HumaLOG INSULIN (NovoLOG) PER UNIT SC SCH ×4 (08:37→21:03)
[2018-11-02] MEDS: ASCORBIC ACID 500 MG TAB PO SCH (08:38)
[2018-11-02] MEDS: SENOKOT S TAB PO SCH ×2 (08:39→21:02)
[2018-11-02] MEDS: METOPROLOL SUCC *XL* 25MG TAB (TopROL *XL*) PO SCH (08:39)
[2018-11-02] MEDS: APIXABAN 2.5 MG TAB (ELIQUIS) PO SCH ×2 (08:39→21:02)
[2018-11-02] MEDS: SODIUM CHLORIDE NASAL 0.65% SPRAY BTL (OCEAN) SCH ×2 (08:39→21:04)
[2018-11-02] MEDS: FAMOTIDINE 20 MG TAB PO SCH (08:39)
[2018-11-02] MEDS: PREGABALIN 75 MG CAP(LYRICA) PO SCH ×2 (08:39→21:02)
[2018-11-02] MEDS: VITAMIN D 1,000 INTERNATIONAL UNITS TABLET PO SCH (08:39)
[2018-11-02] MEDS: ESCITALOPRAM OXALATE 10 MG TAB (LEXAPRO) PO SCH (08:40)
[2018-11-02] MEDS: LACTULOSE 20 GM/30 ML SYRUP UD PO SCH (08:40)
[2018-11-02] MEDS: AMIODARONE 200 MG TAB (PACERONE) PO SCH (08:40)
[2018-11-02] MEDS: buPROPion (WELLBUTRIN SR) 100 MG SR TAB PO SCH (12:46)
--- NOTE | 2018-11-02 13:09 | IPNPDOC ---
Date Seen The patient was seen on 11/02/18. Progress Note HPI: Mr. Mills is a 67-year-old who reported being in his usual state of health until the evening of admission when he was visiting his daughter at her place of employment when he slipped and fell on his right hip to the ground. He subsequently felt pain and was unable to raise off the ground. Activated EMS and presented to the emergency room. Imaging revealing right intertrochanteric femoral fracture. Orthopedics was consulted. S/P right hip trochanteric fixation nailing (TFN) for intertrochanteric hip fracture. Pt was transferred to ARU, Dr Albarran, 10/06/18. The pt states he is feeling well. Breathing at baseline and has been ambulating without dyspnea. Denies any fevers, chills, weakness, fatigue, Headache, Chest Pain, Shortness of breath, cough, palpitations, abdominal pain, N/V/D or changes in bowel or bladder habits. PMHx: DM HTN HLD CAD GERD CHF TTE 09/28/18 EF 65%, DD. PSHX: Cholecystectomy. CAD with stent placement 2000. PE: GEN: 67yoM, appears stated age. No acute distress. Alert and oriented x 3. Pleasant, interactive. HEENT: Normocephalic, atraumatic. Sclera are nonicteric. Conjunctiva without injection. Moist mucous membranes. CHEST: Regular rate and rhythm, +S1, +S2 LUNGS: Clear to auscultation bilaterally. No wheezes, rales, or rhonchi. ABD: Round, soft, non-tender, non-distended. +Bowel sounds throughout. No rebound or guarding. EXT: trace lower extremity edema appreciated B/L distal pretib area. TEDS in place. SKIN: [place], dry, warm. No rashes. NEURO: Alert and oriented x 3. Cranial nerves III-XII are intact. No focal deficits appreciated. A&P: Mr. Mills is a 67-year-old who reported being in his usual state of health until the evening of admission when he was visiting his daughter at her place of employment when he slipped and fell on his right hip to the ground. He subsequently felt pain and was unable to raise off the ground. Activated EMS and presented to the emergency room. Imaging revealing right intertrochanteric femoral fracture. Orthopedics was consulted. S/P right hip trochanteric fixation nailing (TFN) for intertrochanteric hip fracture. Pt was transferred to ARU, Dr Albarran, 10/06/18. 1. Mechanical fall resulting in right intertrochanteric femur fracture/IM nail right hip on 09/30/2018. Management as per Orthopedics. PT/OT/ST as per ARU Pain control as per ARU Bowel care as per ARU Disposition as per ARU DVT px. Continue Eliquis 2.5mg by mouth twice daily for anticoagulation. X-ray right hip completed 10/28/18 is negative for fracture. 2. 11. HTN/HHD/LVH EF 65%/DD. S/P Lasix IV. Hydralazine 12.5 mg Q8. Toprol XL 25 mg SCr 1.64 ([place] 1.6-1.8) Caution with IVF. Monitor BMP 3. Chronic kidney disease, stage III: Baseline 1.6-1.8 SCr 1.64 today. Lasix on hold. S/P IV lasix 10/29, 10/30, 10/31. Monitor I/O. Monitor daily wt 1800cc FR BMP in AM. 4. Hematuria: Status post Hdez catheter. Follow-up urinalysis has normalized. Could consider outpatient follow-up with urology. 5. Iron deficiency Anemia Started iron supplement daily with vitamin C. Peripheral smear Normocytic anemia; patient is status-post hip surgery. No blasts identified. Minimal thrombocytopenia with normal platelet morphology. Folate 8.7. Vitamin B12 level WNL. Hgb stable. 6. Diabetes mellitus with hyperglycemia and neuropathy: CC diet. Pt readily admits he follows diet much differently while here. Levemir SSI. Lyrica Monitor BS. 7. Recent diagnosis of atrial fibrillation. Continue Eliquis, Toprol XL, and amiodarone. 8. Depression: Continue Lexapro. 9. Gastroesophageal reflux disease: Continue famotidine and omeprazole. 10. Benign prostatic hyperplasia: Continue Flomax. 11. Coronary artery disease status-post cardiac stenting: Follows with Dr. Johnson. Status-post stenting in 2000. 12. History of TIA/CVA: Residual left-sided weakness. Monitor. VS, I&O, 24H, Fishbone Vital Signs/I&O Vital Signs Date Time Temp Pulse Resp B/P (MAP) Pulse Ox O2 Delivery O2 Flow Rate FiO2 11/02/18 12:46 20 11/02/18 12:45 148/78 11/02/18 08:39 71 11/02/18 06:00 97.4 92 10/31/18 06:00 2.0 I&O- Last 24 Hours up to 6 AM 11/02/18 06:00 Intake Total 1280 ml Output Total 950 ml Balance 330 ml Laboratory Data 24H LABS Laboratory Tests 2 11/01/18 16:42: Bedside Glucose (Misc Panel) 177H 11/01/18 20:38: Bedside Glucose (Misc Panel) 185H 11/02/18 06:11: Bedside Glucose (Misc Panel) 163H 11/02/18 06:55: Anion Gap 3L, Glomerular Filtration Rate 44.6L, Blood Urea Nitrogen 42H, Creatinine 1.64H, Sodium Level 141, Potassium Level 5.2H, Chloride Level 105, Carbon Dioxide Level 33H, Calcium Level 8.3L 11/02/18 11:58: Bedside Glucose (Misc Panel) 114 CBC/BMP Laboratory Tests 11/02/18 06:55 Calcium Level 8.3 L Sharron Cartwright Nov 02, 2018 13:09
[2018-11-02 14:22] VITALS: BP 140/76
[2018-11-02 20:00] VITALS: BP 145/70
[2018-11-02] MEDS: ATORVASTATIN 10 MG TAB PO SCH (21:02)
[2018-11-02] MEDS: LEVEMIR (INSULIN DETEMIR) 1 UNITS/0.01ML SC SCH (21:04)
[2018-11-03 05:21] VITALS: BP 162/64
[2018-11-03] MEDS: **hydrALAZINE HCL** 25 MG TAB PO SCH ×3 (05:23→22:07)
[2018-11-03] MEDS: NORCO, ANEXSIA 5/325MG TABLET (HYDROcodone/ACETAMINOPHEN) PO PRN ×3 (05:45→14:03)
[2018-11-03 07:52] LABS: CALCIUM LEVEL 8.6 MG/DL (8.8-10.2); CREATININE FOR GFR 1.67 MG/DL (0.70-1.30); GLOMERULAR FILTRATION RATE 43.6 (>49); POTASSIUM SERUM 5.1 MEQ/L (3.5-5.1)
[2018-11-03] MEDS: METOPROLOL SUCC *XL* 25MG TAB (TopROL *XL*) PO SCH (09:00)
[2018-11-03] MEDS: SODIUM CHLORIDE NASAL 0.65% SPRAY BTL (OCEAN) SCH ×2 (09:00→20:21)
[2018-11-03] MEDS: LACTULOSE 20 GM/30 ML SYRUP UD PO SCH (09:00)
[2018-11-03] MEDS: FERROUS GLUCONATE 324 MG TAB PO SCH (09:36)
[2018-11-03] MEDS: TAMSULOSIN 0.4 MG CAP PO SCH (09:36)
[2018-11-03] MEDS: ESCITALOPRAM OXALATE 10 MG TAB (LEXAPRO) PO SCH (09:36)
[2018-11-03] MEDS: SENOKOT S TAB PO SCH ×2 (09:36→20:21)
[2018-11-03] MEDS: HumaLOG INSULIN (NovoLOG) PER UNIT SC SCH ×4 (09:36→20:00)
[2018-11-03] MEDS: FAMOTIDINE 20 MG TAB PO SCH (09:36)
[2018-11-03] MEDS: PREGABALIN 75 MG CAP(LYRICA) PO SCH ×2 (09:36→20:20)
[2018-11-03] MEDS: VITAMIN D 1,000 INTERNATIONAL UNITS TABLET PO SCH (09:36)
[2018-11-03] MEDS: ASCORBIC ACID 500 MG TAB PO SCH (09:36)
[2018-11-03] MEDS: buPROPion (WELLBUTRIN SR) 100 MG SR TAB PO SCH (09:37)
[2018-11-03] MEDS: APIXABAN 2.5 MG TAB (ELIQUIS) PO SCH ×2 (09:37→20:21)
[2018-11-03] MEDS: AMIODARONE 200 MG TAB (PACERONE) PO SCH (09:37)
--- NOTE | 2018-11-03 12:15 | IPNPDOC ---
PM&R Progress Note DATE OF SERVICE: Nov 02, 2018 [employer] Progress Note Subjective: Patient reports he feels well and is ready for room privileges. REVIEW OF SYSTEMS: The following is a completed review of systems and has been reviewed. Review of systems otherwise unremarkable. PAIN: Patient self reports right hip pain EYES: Negative for recent vision changes EARS, NOSE, & THROAT:no dysphagia or rhinorrhea CARDIOVASCULAR: +Afib, denies chest pain PULMONARY: Negative. Denies shortness of breath. GASTROINTESTINAL: Negative for constipation or diarrhea GENITOURINARY:+retention (improving) MUSCULOSKELETAL: right hip fracture NEUROLOGICAL: no tremor, no focal weakness, +diabetic neuropathy HEMATOLOGICAL:no ecchymosis SKIN: right hip incision PSYCHIATRIC: Unremarkable All other review of systems found to be negative. PHYSICAL EXAMINATION: VITAL SIGNS: Please see below. GENERAL: Pleasant and cooperative. No acute distress. HEENT: PERRL. Extraocular movements intact. Clear conjunctiva CARDIOVASCULAR: Irregular rate and rhythm. No murmurs, rubs, or gallops LUNGS: Clear to auscultation bilaterally. No wheezes. No rhonchi ABDOMEN: Soft, nontender, mildly distended. Positive bowel sounds. Normal active bowel sounds NEUROLOGICAL: Alert and oriented times three. Cranial nerves II through XII grossly intact. Sensation diminished in stocking pattern lower extremities EXTREMITIES: 5\5 strength bilateral upper extremities. 5-\5 strength ankle DF and EHL did not test right hip flexors or knee extensors due to pain 5-/5 strength in left lower extremity. SKIN: right hip incisions c/d/i, no surrounding induration or erythema +bilateral edema-improving ASSESSMENT:67-year-old M with past medical history of CAD sp stent, Afib, DM who presents status post fall with right hip fracture. PLAN: 1. Rehab: OT, PT assess for DME, able to ambulate further RW, will work on Mod- I bed to commode transfers, will reinstate room privileges today 2. Ortho: s.p right hip ORIF, ortho consulted, WBAT, greg removed, s/p fall on unit hip X-rays negative for new fracture, no head trauma 2. Neuro: pmh CVA/TIA, continue secondary stroke prevention measures- statin, ASA, and BP management 3. CArdio: pmh Afib on amiodarone and low dose Eliquis, chronic diastolic HF and HTN, continue home meds and monitor, beta-diana dose lowered for bradycardia- improving - medicine consulted 4. Endo: pmh DM, continue insulin therapy, will order nutrition consult per patient request to assist with weight loss- 5units long-acting qHS and continue premeal SS-satble 6. 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 DVT ppx: on eliquis, TEDs 6. Pain: Tylenol and [place] prn, ICE TID, will titrate down [place] to 1 tab only q4prn 7. Psych: depression, continue Wellbutrin and Lexapro 8. resp: Incentive spirometry, monitor for cough-stable 9. Skin: bilateral LE edema, alyson wrap and elevate legs while in bed-improving 10. : admission Ua and Ucx negative, repeat UA negative 9. Dispo: changed date to 11/04 to home given patient fell today while packing his clothes will work more on stairs and fall prevention progressing toward goals Allergies Coded Allergies: Latex (Verified Allergy, Unknown, Hives, 09/28/18) had reaction to rubber gloves-hives Penicillins (Verified Allergy, Unknown, 01/07/14) Vital Signs Vital Signs Date Time Temp Pulse Resp B/P (MAP) Pulse Ox O2 Delivery O2 Flow Rate FiO2 11/03/18 10:31 18 11/03/18 09:00 59 11/03/18 05:23 162/64 11/03/18 05:21 97.7 95 10/31/18 06:00 2.0 Laboratory Data CBC/BMP Laboratory Tests 11/03/18 07:03 Calcium Level 8.6 L Labs 24H Laboratory Tests 2 11/02/18 17:17: Bedside Glucose (Misc Panel) 101 11/02/18 20:33: Bedside Glucose (Misc Panel) 192H 11/03/18 07:03: Anion Gap 3L, Glomerular Filtration Rate 43.6L, Blood Urea Nitrogen 38H, Creatinine 1.67H, Sodium Level 139, Potassium Level 5.1, Chloride Level 105, Carbon Dioxide Level 31, Calcium Level 8.6L 11/03/18 11:56: Bedside Glucose (Misc Panel) 133H Current Medications Current Medications Current Medications Acetaminophen (Tylenol Tab) 650 mg Q4HP PRN PO fever/MILD PAIN (PS 1-4); Start 10/06/18 at 16:30 Acetaminophen/ Hydrocodone Bitart ([place], Anexsia 5/325) 1 tab Q4HP PRN PO MODERATE PAIN (PS 5-7) Last administered on 11/03/18at 09:43; Start 10/06/18 at 16:30 Acetaminophen/ Hydrocodone Bitart ([place], Anexsia 5/325) 2 tab Q4HP PRN PO SEVERE PAIN (PS 8-10) Last administered on 11/01/18 08:01; Start 10/06/18 at 16:30; Stop 11/01/18 at 17:05; Status DC Albuterol/ Ipratropium (Duoneb (Ipr 0.5mg/Alb 2.5mg)) 3 ml Q4HP PRN NEB SO B/WHEEZING Last administered on 10/31/18 05:46; Start 10/30/18 at 17:00 Amiodarone HCl (Pacerone, Cordarone) 200 mg DAILY PO Last administered on 11/03/18 09:37; Start 10/07/18 at 09:00 Apixaban (Eliquis) 2.5 mg BID PO Last administered on 11/03/18at 09:37; Start 10/06/18 at 21:00 Ascorbic Acid (Vitamin C) 500 mg DAILY PO Last administered on 11/03/18 09:36; Start 10/07/18 at 09:00 Atorvastatin Calcium (Lipitor) 10 mg QHS PO Last administered on 11/02/18at 21:02; Start 10/06/18 at 21:00 Bisacodyl (Dulcolax Suppository) 10 mg DAILYPRN PRN [place] CONSTIPATION; Start 10/06/18 at 16:30 Bupropion HCl (Wellbutrin Sr) 100 mg DAILY PO Last administered on 11/03/18at 09:37; Start 10/07/18 at 09:00 Dextrose (Dextrose 50%) 25 ml ASDIRECTED PRN IV SEE LABEL COMMENTS; Start 10/06/18 at 16:45 Escitalopram Oxalate (Lexapro) 20 mg DAILY PO Last administered on 11/03/18at 09:36; Start 10/07/18 at 09:00 Famotidine (Pepcid) 20 mg DAILY PO Last administered on 11/03/18at 09:36; Start 10/07/18 at 09:00 Ferrous Gluconate (Fergon) 324 mg DAILY PO Last administered on 11/03/18 09:36; Start 10/07/18 at 09:00 Furosemide (Lasix) 20 mg DAILY PO Last administered on 10/17/18at 08:54; Start 10/11/18 at 09:00; Stop 10/17/18 at 09:01; Status DC Furosemide (Lasix) 20 mg DAILY PO Last administered on 10/26/18at 08:34; Start 10/18/18 at 09:00; Stop 10/26/18 at 09:53; Status DC Glucagon (Glucagon) 1 mg ASDIRECTED PRN SC SEE LABEL COMMENTS; Start 10/06/18 at 16:45 Glucose (Glucose) 16 GM ASDIRECTED PRN PO SEE LABEL COMMENTS; Start 10/06/18 at 16:45 Home Med (Med Rec Complete!) ASDIRECTED XX ; Start 10/06/18 at 17:30; Stop 10/06/18 at 17:30; Status DC Hydralazine HCl (Apresoline) 12.5 mg Q8H PO Last administered on 11/03/18at 05:23; Start 10/13/18 at 14:00 Insulin Detemir (Levemir Insulin) 5 units QHS SC Last administered on 11/02/18at 21:04; Start 10/15/18 at 21:00 Insulin Detemir (Levemir Insulin) 45 units DAILY SC Last administered on 10/12/18at 09:07; Start 10/07/18 at 09:00; Stop 10/12/18 at 16:18; Status DC Insulin Human Lispro (HumaLOG INSULIN) SEE PROTOCOL TABLE AC SC Last administered on 11/03/18at 09:36; Start 10/06/18 at 17:30 Insulin Human Lispro (HumaLOG INSULIN) See Protocol Table QHS SC Last administered on 10/30/18at 21:53; Start 10/06/18 at 21:00 Lactulose (Cephulac) 30 ml DAILY PO Last administered on 10/13/18at 08:15; Start 10/07/18 at 09:00 Magnesium Hydroxide (Milk Of Magnesia) 30 ml DAILYPRN PRN PO CONSTIPATION; Start 10/06/18 at 16:30 Metoprolol Succinate (TopROL XL) 25 mg DAILY PO Last administered on 11/02/18at 08:39; Start 10/28/18 at 09:00 Metoprolol Succinate (TopROL XL) 75 mg DAILY PO Last administered on 10/27/18at 09:08; Start 10/19/18 at 09:00; Stop 10/27/18 at 13:22; Status DC Metoprolol Succinate (TopROL XL) 100 mg DAILY PO Last administered on 10/17/18at 08:55; Start 10/07/18 at 09:00; Stop 10/18/18 at 10:48; Status DC Miscellaneous (Unresolved Clarification Entry) SEE LABEL COMMENTS DAILY XX ; Start 10/12/18 at 09:00; Stop 10/13/18 at 07:15; Status DC Miscellaneous (Unresolved Clarification Entry) SEE LABEL COMMENTS DAILY XX ; Start 10/13/18 at 09:00; Stop 10/13/18 at 09:35; Status DC Miscellaneous (Unresolved Clarification Entry) SEE LABEL COMMENTS DAILY XX ; Start 10/14/18 at 09:00; Stop 10/14/18 at 09:00; Status DC Miscellaneous (Unresolved Clarification Entry) SEE LABEL COMMENTS DAILY XX Last administered on 10/24/18at 11:46; Start 10/24/18 at 09:00; Stop 10/24/18 at 14:58; Status DC Pregabalin (Lyrica) 150 mg BID PO Last administered on 11/03/18at 09:36; Start 10/06/18 at 21:00 Senna/Docusate Sodium (Senokot S) 1 tab BID PO Last administered on 11/03/18at 09:36; Start 10/06/18 at 21:00 Sodium Chloride ([place] Nasal [place]) 2 spray BID NA Last administered on 11/03/18at 09:00; Start 10/30/18 at 14:00 Tamsulosin HCl (Flomax) 0.4 mg DAILY PO Last administered on 11/03/18at 09:36; Start 10/07/18 at 09:00 Vitamin D (Vitamin D) 1,000 units DAILY PO Last administered on 11/03/18at 09:36; Start 10/07/18 at 09:00 KARLA ULLOA MD Nov 03, 2018 12:15
--- NOTE | 2018-11-03 12:18 | IPNPDOC ---
PM&R Progress Note DATE OF SERVICE: Nov 03, 2018 Drum Worker Progress Note Subjective: Patient encouraged to walk in the halls today outside of therapy. REVIEW OF SYSTEMS: The following is a completed review of systems and has been reviewed. Review of systems otherwise unremarkable. PAIN: Patient self reports right hip pain EYES: Negative for recent vision changes EARS, NOSE, & THROAT:no dysphagia or rhinorrhea CARDIOVASCULAR: +Afib, denies chest pain PULMONARY: Negative. Denies shortness of breath. GASTROINTESTINAL: Negative for constipation or diarrhea GENITOURINARY:+retention (improving) MUSCULOSKELETAL: right hip fracture NEUROLOGICAL: no tremor, no focal weakness, +diabetic neuropathy HEMATOLOGICAL:no ecchymosis SKIN: right hip incision PSYCHIATRIC: Unremarkable All other review of systems found to be negative. PHYSICAL EXAMINATION: VITAL SIGNS: Please see below. GENERAL: Pleasant and cooperative. No acute distress. HEENT: PERRL. Extraocular movements intact. Clear conjunctiva CARDIOVASCULAR: Irregular rate and rhythm. No murmurs, rubs, or gallops LUNGS: Clear to auscultation bilaterally. No wheezes. No rhonchi ABDOMEN: Soft, nontender, mildly distended. Positive bowel sounds. Normal active bowel sounds NEUROLOGICAL: Alert and oriented times three. Cranial nerves II through XII grossly intact. Sensation diminished in stocking pattern lower extremities EXTREMITIES: 5\5 strength bilateral upper extremities. 5-\5 strength ankle DF and EHL did not test right hip flexors or knee extensors due to pain 5-/5 strength in left lower extremity. SKIN: right hip incisions c/d/i, no surrounding induration or erythema +bilateral edema-improving ASSESSMENT:67-year-old M with past medical history of CAD sp stent, Afib, DM who presents status post fall with right hip fracture. PLAN: 1. Rehab: OT, PT assess for DME, able to ambulate further RW, will work on Mod- I bed to commode transfers, continue room privileges 2. Ortho: s/p right hip ORIF, ortho consulted, WBAT, greg removed, s/p fall on unit hip X-rays negative for new fracture, no head trauma 2. Neuro: pmh CVA/TIA, continue secondary stroke prevention measures- statin, ASA, and BP management 3. CArdio: pmh Afib on amiodarone and low dose Eliquis, chronic diastolic HF and HTN, continue home meds and monitor, beta-diana dose lowered for bradycardia- improving - medicine consulted 4. Endo: pmh DM, continue insulin therapy, will order nutrition consult per patient request to assist with weight loss- 5units long-acting qHS and continue premeal SS-satble 6. 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 DVT ppx: on eliquis, TEDs 6. Pain: Tylenol and Freeman prn, ICE TID, will titrate down Freeman to 1 tab only q4prn 7. Psych: depression, continue Wellbutrin and Lexapro 8. resp: Incentive spirometry, monitor for cough-stable 9. Skin: bilateral LE edema, alyson wrap and elevate legs while in bed-improving 10. : admission Ua and Ucx negative, repeat UA negative 9. Dispo: changed date to 11/04 to home given patient fell today while packing his clothes will work more on stairs and fall prevention progressing toward goals Allergies Coded Allergies: Latex (Verified Allergy, Unknown, Hives, 09/28/18) had reaction to rubber gloves-hives Penicillins (Verified Allergy, Unknown, 01/07/14) Vital Signs Vital Signs Date Time Temp Pulse Resp B/P (MAP) Pulse Ox O2 Delivery O2 Flow Rate FiO2 11/03/18 10:31 18 11/03/18 09:00 59 11/03/18 05:23 162/64 11/03/18 05:21 97.7 95 10/31/18 06:00 2.0 Laboratory Data CBC/BMP Laboratory Tests 11/03/18 07:03 Calcium Level 8.6 L Labs 24H Laboratory Tests 2 11/02/18 17:17: Bedside Glucose (Misc Panel) 101 11/02/18 20:33: Bedside Glucose (Misc Panel) 192H 11/03/18 07:03: Anion Gap 3L, Glomerular Filtration Rate 43.6L, Blood Urea Nitrogen 38H, Creatinine 1.67H, Sodium Level 139, Potassium Level 5.1, Chloride Level 105, Carbon Dioxide Level 31, Calcium Level 8.6L 11/03/18 11:56: Bedside Glucose (Misc Panel) 133H Current Medications Current Medications Current Medications Acetaminophen (Tylenol Tab) 650 mg Q4HP PRN PO fever/MILD PAIN (PS 1-4); Start 10/06/18 at 16:30 Acetaminophen/ Hydrocodone Bitart (Freeman, [place]nexsia 5/325) 1 tab Q4HP PRN PO MODERATE PAIN (PS 5-7) Last administered on 11/03/18 09:43; Start 10/06/18 at 16:30 Acetaminophen/ Hydrocodone Bitart (Freeman, Anexsia 5/325) 2 tab Q4HP PRN PO SEVERE PAIN (PS 8-10) Last administered on 11/01/18 08:01; Start 10/06/18 at 16:30; Stop 11/01/18 at 17:05; Status DC Albuterol/ Ipratropium (Duoneb (Ipr 0.5mg/Alb 2.5mg)) 3 ml Q4HP PRN NEB SOB/WHEEZING Last administered on 10/31/18 05:46; Start 10/30/18 at 17:00 Amiodarone HCl (Pacerone, Cordarone) 200 mg DAILY PO Last administered on 11/03/18 09:37; Start 10/07/18 at 09:00 Apixaban (Eliquis) 2.5 mg BID PO Last administered on 11/03/18 09:37; Start 10/06/18 at 21:00 Ascorbic Acid (Vitamin C) 500 mg DAILY PO Last administered on 11/03/18 09:36; Start 10/07/18 at 09:00 Atorvastatin Calcium (Lipitor) 10 mg QHS PO Last administered on 11/02/18at 21:02; Start 10/06/18 at 21:00 Bisacodyl (Dulcolax Suppository) 10 mg DAILYPRN PRN [place] CONSTIPATION; Start 10/06/18 at 16:30 Bupropion HCl (Wellbutrin Sr) 100 mg DAILY PO Last administered on 11/03/18at 09:37; Start 10/07/18 at 09:00 Dextrose (Dextrose 50%) 25 ml ASDIRECTED PRN IV SEE LABEL COMMENTS; Start 10/06/18 at 16:45 Escitalopram Oxalate (Lexapro) 20 mg DAILY PO Last administered on 11/03/18at 09:36; Start 10/07/18 at 09:00 Famotidine (Pepcid) 20 mg DAILY PO Last administered on 11/03/18at 09:36; Start 10/07/18 at 09:00 Ferrous Gluconate (Fergon) 324 mg DAILY PO Last administered on 11/03/18at 09:36; Start 10/07/18 at 09:00 Furosemide (Lasix) 20 mg DAILY PO Last administered on 10/17/18at 08:54; Start 10/11/18 at 09:00; Stop 10/17/18 at 09:01; Status DC Furosemide (Lasix) 20 mg DAILY PO Last administered on 10/26/18at 08:34; Start 10/18/18 at 09:00; Stop 10/26/18 at 09:53; Status DC Glucagon (Glucagon) 1 mg ASDIRECTED PRN SC SEE LABEL COMMENTS; Start 10/06/18 at 16:45 Glucose (Glucose) 16 GM ASDIRECTED PRN PO SEE LABEL COMMENTS; Start 10/06/18 at 16:45 Home Med (Med Rec Complete!) ASDIRECTED XX ; Start 10/06/18 at 17:30; Stop 10/06/18 at 17:30; Status DC Hydralazine HCl (Apresoline) 12.5 mg Q8H PO Last administered on 11/03/18at 05:23; Start 10/13/18 at 14:00 Insulin Detemir (Levemir Insulin) 5 units QHS SC Last administered on 11/02/18at 21:04; Start 10/15/18 at 21:00 Insulin Detemir (Levemir Insulin) 45 units DAILY SC Last administered on 10/12/18at 09:07; Start 10/07/18 at 09:00; Stop 10/12/18 at 16:18; Status DC Insulin Human Lispro (HumaLOG INSULIN) SEE PROTOCOL TABLE AC SC Last administered on 11/03/18at 09:36; Start 10/06/18 at 17:30 Insulin Human Lispro (HumaLOG INSULIN) See Protocol Table QHS SC Last administered on 10/30/18at 21:53; Start 10/06/18 at 21:00 Lactulose (Cephulac) 30 ml DAILY PO Last administered on 10/13/18at 08:15; Start 10/07/18 at 09:00 Magnesium Hydroxide (Milk Of Magnesia) 30 ml DAILYPRN PRN PO CONSTIPATION; Start 10/06/18 at 16:30 Metoprolol Succinate (TopROL XL) 25 mg DAILY PO Last administered on 11/02/18at 08:39; Start 10/28/18 at 09:00 Metoprolol Succinate (TopROL XL) 75 mg DAILY PO Last administered on 10/27/18at 09:08; Start 10/19/18 at 09:00; Stop 10/27/18 at 13:22; Status DC Metoprolol Succinate (TopROL XL) 100 mg DAILY PO Last administered on 10/17/18at 08:55; Start 10/07/18 at 09:00; Stop 10/18/18 at 10:48; Status DC Miscellaneous (Unresolved Clarification Entry) SEE LABEL COMMENTS DAILY XX ; Start 10/12/18 at 09:00; Stop 10/13/18 at 07:15; Status DC Miscellaneous (Unresolved Clarification Entry) SEE LABEL COMMENTS DAILY XX ; Start 10/13/18 at 09:00; Stop 10/13/18 at 09:35; Status DC Miscellaneous (Unresolved Clarification Entry) SEE LABEL COMMENTS DAILY XX ; Start 10/14/18 at 09:00; Stop 10/14/18 at 09:00; Status DC Miscellaneous (Unresolved Clarification Entry) SEE LABEL COMMENTS DAILY XX Last administered on 10/24/18at 11:46; Start 10/24/18 at 09:00; Stop 10/24/18 at 14:58; Status DC Pregabalin (Lyrica) 150 mg BID PO Last administered on 11/03/18at 09:36; Start 10/06/18 at 21:00 Senna/Docusate Sodium (Senokot S) 1 tab BID PO Last administered on 11/03/18at 09:36; Start 10/06/18 at 21:00 Sodium Chloride ([place] Nasal [place]) 2 spray BID NA Last administered on 11/03/18at 09:00; Start 10/30/18 at 14:00 Tamsulosin HCl (Flomax) 0.4 mg DAILY PO Last administered on 11/03/18at 09:36; Start 10/07/18 at 09:00 Vitamin D (Vitamin D) 1,000 units DAILY PO Last administered on 11/03/18at 09:36; Start 10/07/18 at 09:00 KARLA ULLOA MD Nov 03, 2018 12:18
[2018-11-03 14:00] VITALS: BP 131/60
--- NOTE | 2018-11-03 14:16 | IPNPDOC ---
Date Seen The patient was seen on 11/03/18. Progress Note HPI: Mr. Mills is a 67-year-old who reported being in his usual state of health until the evening of admission when he was visiting his daughter at her place of employment when he slipped and fell on his right hip to the ground. He subsequently felt pain and was unable to raise off the ground. Activated EMS and presented to the emergency room. Imaging revealing right intertrochanteric femoral fracture. Orthopedics was consulted. S/P right hip trochanteric fixation nailing (TFN) for intertrochanteric hip fracture. Pt was transferred to ARU, Dr Albarran, 10/06/18. The pt states he is feeling well. Breathing at baseline and has been ambulating without dyspnea. Denies any LE edema. Denies any fevers, chills, weakness, fatigue, Headache, Chest Pain, Shortness of breath, cough, palpitations, abdominal pain, N/V/D or changes in bowel or bladder habits. PMHx: DM HTN HLD CAD GERD CHF TTE 09/28/18 EF 65%, DD. PSHX: Cholecystectomy. CAD with stent placement 2000. PE: GEN: 67yoM, appears stated age. No acute distress. Alert and oriented x 3. Pleasant, interactive. HEENT: Normocephalic, atraumatic. Sclera are nonicteric. Conjunctiva without injection. Moist mucous membranes. CHEST: Regular rate and rhythm, +S1, +S2 LUNGS: Clear to auscultation bilaterally. No wheezes, rales, or rhonchi. ABD: Round, soft, non-tender, non-distended. +Bowel sounds throughout. No rebo und or guarding. EXT: trace lower extremity edema appreciated B/L distal pretib area. TEDS in place. SKIN: [place], dry, warm. No rashes. NEURO: Alert and oriented x 3. Cranial nerves III-XII are intact. No focal deficits appreciated. A&P: Mr. Mills is a 67-year-old who reported being in his usual state of health until the evening of admission when he was visiting his daughter at her place of employment when he slipped and fell on his right hip to the ground. He subsequently felt pain and was unable to raise off the ground. Activated EMS and presented to the emergency room. Imaging revealing right intertrochanteric femoral fracture. Orthopedics was consulted. S/P right hip trochanteric fixation nailing (TFN) for intertrochanteric hip fracture. Pt was transferred to ARU, Dr Albarran, 10/06/18. 1. Mechanical fall resulting in right intertrochanteric femur fracture/IM nail right hip on 09/30/2018. Management as per Orthopedics. PT/OT/ST as per ARU Pain control as per ARU Bowel care as per ARU Disposition as per ARU DVT px. Continue Eliquis 2.5mg by mouth twice daily for anticoagulation. X-ray right hip completed 10/28/18 is negative for fracture. 2. 11. HTN/HHD/LVH EF 65%/DD. S/P Lasix IV. Hydralazine 12.5 mg Q8. Toprol XL 25 mg SCr 1.67 ([place] 1.6-1.8) Caution with IVF. Monitor BMP 3. Chronic kidney disease, stage III: Baseline 1.6-1.8 SCr 1.67 today. Lasix on hold. S/P IV lasix 10/29, 10/30, 10/31. Monitor I/O. Monitor daily wt 1800cc FR Pt was not on diuretic as outpt. 4. Hematuria: Status post Hdez catheter. Follow-up urinalysis has normalized. Could consider outpatient follow-up with urology. 5. Iron deficiency Anemia Started iron supplement daily with vitamin C. Peripheral smear Normocytic anemia; patient is status-post hip surgery. No blasts identified. Minimal thrombocytopenia with normal platelet morphology. Folate 8.7. Vitamin B12 level WNL. Hgb stable. 6. Diabetes mellitus with hyperglycemia and neuropathy: CC diet. Pt readily admits he follows diet much differently while here. Levemir SSI. Lyrica Monitor BS. 7. Recent diagnosis of atrial fibrillation. Continue Eliquis, Toprol XL, and amiodarone. 8. Depression: Continue Lexapro. 9. Gastroesophageal reflux disease: Continue famotidine and omeprazole. 10. Benign prostatic hyperplasia: Continue Flomax. 11. Coronary artery disease status-post cardiac stenting: Follows with Dr. Johnson. Status-post stenting in 2000. 12. History of TIA/CVA: Residual left-sided weakness. Monitor. VS, I&O, 24H, Fishbone Vital Signs/I&O Vital Signs Date Time Temp Pulse Resp B/P (MAP) Pulse Ox O2 Delivery O2 Flow Rate FiO2 11/03/18 14:03 131/60 11/03/18 14:03 18 11/03/18 14:00 96.7 64 92 10/31/18 06:00 2.0 I&O- Last 24 Hours up to 6 AM 11/03/18 06:00 Intake Total 1380 ml Output Total 550 ml Balance 830 ml Laboratory Data 24H LABS Laboratory Tests 2 11/02/18 17:17: Bedside Glucose (Misc Panel) 101 11/02/18 20:33: Bedside Glucose (Misc Panel) 192H 11/03/18 07:03: Anion Gap 3L, Glomerular Filtration Rate 43.6L, Blood Urea Nitrogen 38H, Creatinine 1.67H, Sodium Level 139, Potassium Level 5.1, Chloride Level 105, Carbon Dioxide Level 31, Calcium Level 8.6L 11/03/18 11:56: Bedside Glucose (Misc Panel) 133H CBC/BMP Laboratory Tests 11/03/18 07:03 Calcium Level 8.6 L Sharron Cartwright Nov 03, 2018 14:16
[2018-11-03 20:00] VITALS: BP 157/75
[2018-11-03] MEDS: ATORVASTATIN 10 MG TAB PO SCH (20:21)
[2018-11-03] MEDS: LEVEMIR (INSULIN DETEMIR) 1 UNITS/0.01ML SC SCH (20:21)
[2018-11-04] MEDS: **hydrALAZINE HCL** 25 MG TAB PO SCH (05:12)
[2018-11-04 06:00] VITALS: BP 146/66
[2018-11-04] MEDS: NORCO, ANEXSIA 5/325MG TABLET (HYDROcodone/ACETAMINOPHEN) PO PRN (07:51)
[2018-11-04] MEDS: HumaLOG INSULIN (NovoLOG) PER UNIT SC SCH ×2 (07:52→12:47)
[2018-11-04] MEDS: ESCITALOPRAM OXALATE 10 MG TAB (LEXAPRO) PO SCH (08:19)
[2018-11-04] MEDS: ASCORBIC ACID 500 MG TAB PO SCH (08:19)
[2018-11-04] MEDS: TAMSULOSIN 0.4 MG CAP PO SCH (08:19)
[2018-11-04] MEDS: PREGABALIN 75 MG CAP(LYRICA) PO SCH (08:19)
[2018-11-04] MEDS: APIXABAN 2.5 MG TAB (ELIQUIS) PO SCH (08:19)
[2018-11-04] MEDS: SENOKOT S TAB PO SCH (08:19)
[2018-11-04 08:20] VITALS: BP 151/69
[2018-11-04] MEDS: FAMOTIDINE 20 MG TAB PO SCH (08:20)
[2018-11-04] MEDS: FERROUS GLUCONATE 324 MG TAB PO SCH (08:20)
[2018-11-04] MEDS: buPROPion (WELLBUTRIN SR) 100 MG SR TAB PO SCH (08:20)
[2018-11-04] MEDS: METOPROLOL SUCC *XL* 25MG TAB (TopROL *XL*) PO SCH (08:20)
[2018-11-04] MEDS: AMIODARONE 200 MG TAB (PACERONE) PO SCH (08:20)
[2018-11-04] MEDS: VITAMIN D 1,000 INTERNATIONAL UNITS TABLET PO SCH (08:20)
[2018-11-04] MEDS: LACTULOSE 20 GM/30 ML SYRUP UD PO SCH (08:21)
[2018-11-04] MEDS: SODIUM CHLORIDE NASAL 0.65% SPRAY BTL (OCEAN) SCH (08:21)
[2018-11-04] MEDS ORDERED: NORCOTAB PO (08:58)
[2018-11-04 09:00] VITALS: BP 151/69
== END 2018-11-04 13:20 | disposition home health service (06) | DRG 559 ==
LOC: M PM&R 16:00
PROVIDERS: ADMIT Physical Medicine & Rehabilitation; ATTEND Physical Medicine & Rehabilitation
DX: S72.041D Displaced fracture of base of neck of right femur, subsequent encounter for closed fracture with routine healing (principal); I50.33 Acute on chronic diastolic (congestive) heart failure; I69.354 Hemiplegia and hemiparesis following cerebral infarction affecting left non-dominant side; I13.0 Hypertensive heart and chronic kidney disease with heart failure and stage 1 through stage 4 chronic kidney disease, or unspecified chronic kidney disease; I48.91 Unspecified atrial fibrillation; E11.40 Type 2 diabetes mellitus with diabetic neuropathy, unspecified; K21.9 Gastro-esophageal reflux disease without esophagitis; G89.29 Other chronic pain; D50.9 Iron deficiency anemia, unspecified; E87.5 Hyperkalemia; N18.3 Chronic kidney disease, stage 3 (moderate); E11.65 Type 2 diabetes mellitus with hyperglycemia; E11.22 Type 2 diabetes mellitus with diabetic chronic kidney disease; F32.9 Major depressive disorder, single episode, unspecified; I25.10 Atherosclerotic heart disease of native coronary artery without angina pectoris; N40.0 Benign prostatic hyperplasia without lower urinary tract symptoms; E78.5 Hyperlipidemia, unspecified; Z95.5 Presence of coronary angioplasty implant and graft; Z90.49 Acquired absence of other specified parts of digestive tract; Z87.891 Personal history of nicotine dependence; W18.09XD Striking against other object with subsequent fall, subsequent encounter; Y92.009 Unspecified place in unspecified non-institutional (private) residence as the place of occurrence of the external cause; Z79.01 Long term (current) use of anticoagulants; Z79.4 Long term (current) use of insulin; Z91.040 Latex allergy status; Z88.0 Allergy status to penicillin

== ENCOUNTER 2018-12-01 15:14 | Inpatient (IN) | payer MEDICARE, MEDICAID ==
[~2018-12-01] VITALS: Ht 165.1 cm; Wt 120.5 kg
[~2018-12-01 15:14] MED LIST changes: +HYDR25TA PO; +METO1TAB32 PO; +NORCOTAB PO
[2018-12-01 15:53] LABS: HEMATOCRIT 35.3 % (42.0-52.0); HEMOGLOBIN 10.6 g/dl (13.5-17.5); MEAN CORPUSCULAR HEMOGLOBIN 30.1 pg (27.0-33.0); MEAN CORPUSCULAR VOLUME 100.3 fl (80.0-96.0); PLATELET COUNT, AUTOMATED 114 10^3/uL (150-450); RED BLOOD COUNT 3.52 10^6/uL (4.30-6.10); WHITE BLOOD COUNT 6.5 10^3/uL (4.0-10.0)
[2018-12-01] MEDS ORDERED: MAGN250T11 PO (16:05)
[2018-12-01 16:06] LABS: ALBUMIN 3.1 GM/DL (3.2-5.2); ALT/SGPT 21 U/L (12-78); BILIRUBIN,TOTAL 0.6 MG/DL (0.2-1.0); BLOOD UREA NITROGEN 64 MG/DL (7-18); CALCIUM LEVEL 7.7 MG/DL (8.8-10.2); CARBON DIOXIDE LEVEL 21 MEQ/L (21-32); CHLORIDE LEVEL 112 MEQ/L (98-107); CREATININE FOR GFR 2.03 MG/DL (0.70-1.30); GLOMERULAR FILTRATION RATE 34.7 (>42); GLUCOSE, FASTING 112 MG/DL (70-100); INR 1.93; POTASSIUM SERUM 4.7 MEQ/L (3.5-5.1); PROTHROMBIN TIME 22.4 SECONDS (12.1-14.4); SODIUM LEVEL 141 MEQ/L (136-145); TOTAL PROTEIN 6.4 GM/DL (6.4-8.2)
[2018-12-01 16:07] LABS: PARTIAL THROMBOPLASTIN TIME 39.3 SECONDS (25.4-37.6)
[2018-12-01] MEDS ORDERED: OMEP20CA3 PO (16:18)
[2018-12-01] MEDS ORDERED: METO1TAB33 PO ×2 (16:18→18:54)
[2018-12-01] MEDS ORDERED: TRAM1CAP15 PO (16:18)
[2018-12-01 16:25] LABS: CPK CREATINE PHOSPHOKINASE 86 U/L (39-308); MB/CK RELATIVE INDEX 5.47 (< OR =4); TROPONIN I < 0.02 NG/ML (< 0.10)
--- NOTE | 2018-12-01 16:44 | REP ---
CT Head without contrast HISTORY: Fall COMPARISON: 09/29/2018 Areas of decreased attenuation are present in the periventricular white matter. This represents small-vessel ischemic disease. There is no intraparenchymal hemorrhage, acute infarct, mass or midline shift. The ventricular system and cortical sulci are dilated consistent with mild volume loss. There is no extra cerebral collection. There is no fracture. Those will thickening is present in the right sphenoid sinus. IMPRESSION: 1. Small vessel ischemic disease. 2. Mild volume loss. Electronically Signed by Jose David Burns MD 12/01/2018 04:36 P
--- NOTE | 2018-12-01 17:30 | REP ---
REASON: Pain after sustaining a fall. Previously described right hip fracture has been openly reduced and internally fixed. The fracture continues to heal as a lucency persists. There is no evidence of an acute fracture. There is no evidence of an acute hip dislocation. IMPRESSION:Chronic changes. Electronically Signed by Zaheer Lyn DO 12/01/2018 05:40 P
--- NOTE | 2018-12-01 17:32 | REP ---
REASON: Pain after fall. COMPARISON: 09/28/2018 Previously described fractures have been openly reduced and internally fixed. Fracture appears to be healing. There is no evidence of an acute fracture. IMPRESSION: Healing right hip fracture affixed by intramedullary rods. Electronically Signed by Zaheer Lyn DO 12/01/2018 05:41 P
--- NOTE | 2018-12-01 17:33 | REP ---
HISTORY: Cough. COMPARISON: 10/29/2018 There is gross global cardiomegaly, status quo. The technique utilized in obtaining the radiograph has magnified the cardiac silhouette and accentuated the interstitial markings. Chronic fibrotic lung field changes seen throughout the lung [place]. Opacification seen previously in the right lower lobe as cleared. The pleural angles are sharp. The osseous structures are intact. There is spinal degenerative changes noted, status quo. IMPRESSION: Chronic changes as described above. Electronically Signed by Zaheer Lyn DO 12/01/2018 05:41 P
[2018-12-01 17:37] LABS: INFLUENZA A AMPLIFICATION NEGATIVE (NEGATIVE); INFLUENZA B AMPLIFICATION NEGATIVE (NEGATIVE)
[2018-12-01] MEDS ORDERED: ATOR1TAB19 PO (18:54)
[2018-12-01] MEDS ORDERED: HYDR25TA PO (18:54)
[2018-12-01] MEDS ORDERED: AMIO200T PO (18:54)
[2018-12-01] MEDS ORDERED: ALEV220T26 PO (18:54)
[2018-12-01] MEDS ORDERED: ELIQ2.5T PO (18:54)
[2018-12-01] MEDS ORDERED: TRAM50TA2 PO (18:54)
[2018-12-01] MEDS ORDERED: LYRI150C PO (18:54)
[2018-12-01] MEDS ORDERED: VITA-122 PO (18:54)
[2018-12-01] MEDS ORDERED: INSUDET SC (18:54)
[2018-12-01] MEDS ORDERED: ESCI10TA2 PO (18:54)
[2018-12-01] MEDS ORDERED: FLOM0.4C39 PO (18:54)
[2018-12-01] MEDS ORDERED: BUPR100T3 PO (18:54)
[2018-12-01] MEDS ORDERED: GLUCAGON FOR INJ 1 MG VIAL (J1610) SC PRN (19:15)
[2018-12-01] MEDS ORDERED: ACETAMINOPHEN TAB 650MG DOSE (2X325MG) PO PRN (19:15)
[2018-12-01] MEDS ORDERED: DEXTROSE 50% 50 ML SYRINGE IV PRN (19:15)
[2018-12-01] MEDS ORDERED: GLUCOSE 4 GM CHEW TABLET PO PRN (19:15)
[2018-12-01] MEDS ORDERED: PILL CRUSHER/CUTTER 1 EACH XX PRN (19:15)
[2018-12-01 20:02] VITALS: BP 124/56
[2018-12-01] MEDS: HumaLOG INSULIN (NovoLOG) PER UNIT SC SCH (20:40)
[2018-12-01] MEDS: APIXABAN 2.5 MG TAB (ELIQUIS) PO SCH (20:40)
[2018-12-01] MEDS: NS 1,000 ML IV SCH (20:40)
[2018-12-01] MEDS: PREGABALIN 75 MG CAP(LYRICA) PO SCH (20:41)
[2018-12-01] MEDS: traMADol 50 MG TAB PO SCH (20:42)
[2018-12-01] MEDS: LEVEMIR (INSULIN DETEMIR) 1 UNITS/0.01ML SC SCH (20:42)
[2018-12-01] MEDS: NYSTATIN 100,000 UNITS/GM TOPICAL PWD 15 GM TOP SCH (21:00)
[2018-12-01] MEDS: **hydrALAZINE HCL** 25 MG TAB PO SCH (22:00)
[2018-12-01 22:46] VITALS: BP 120/58
[2018-12-02] VITALS (15 sets, daily range): BP systolic 100–144; BP diastolic 49–82
--- NOTE | 2018-12-02 01:11 | ECGEPIP ---
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
--- NOTE | 2018-12-02 02:26 | HPE ---
DATE OF ADMISSION: 12/01/2018 CHIEF COMPLAINT: Status post fall. HISTORY OF PRESENT ILLNESS: This is a 68-year-old gentleman with past medical history of diabetes coronary artery disease with history of stents, hypertension, hyperlipidemia, atrial fibrillation on Eliquis, depression, gastroesophageal reflux disease (GERD), benign prostatic hyperplasia (BPH) and recent history of fall in September 2018 requiring open reduction and internal fixation (ORIF) of a right intertrochanteric (IT) femur fracture on September 30, 2018 with subsequent admission to acute rehabilitation here at [facility] discharged on 11/04/2018 who presents status post a fall at home. The patient is accompanied by his granddaughter who is his primary door clamp operator who reports that yesterday while patient was going up to bed to sleep his legs gave out under him and he fell; however, his granddaughter's was behind him and his granddaughter was ahead of him and they were able to slowly follow him down the steps as he fell. He reportedly did not hit his head. The patient did not feel like coming to the hospital last night so the granddaughter brought him in today. He denies any chest pain or shortness of breath. He does report that he was out all day on Thursday and walked quite extensively and does not know if this made him more fatigued than usual. He has also had a wound on his right heel since discharge from rehabilitation. He denies any fevers. His visiting nurses for home care were taking a look at the right heel wound. Of note, the patient's discharge summary from acute rehabilitation says he should be taking metoprolol 25 mg daily; however, the patient is reporting taking 100 mg daily per instructions of his primary care physician who said that he should not change his medications. The patient reportedly says that when he was on 25 mg of metoprolol he had lots of problems. However here in the emergency room he is quite bradycardic but it not having symptoms from that. REVIEW OF SYSTEMS: Negative in 14 out of 14 systems, except as noted above. PAST MEDICAL HISTORY: As noted above in history of present illness. PAST SURGICAL HISTORY: The patient had an open reduction and internal fixation (ORIF) September 30, 2018 of a right femur fracture. The patient also had cardiac catheterization with stents placed in the in [place]. HOME MEDICATIONS: The patient's home medications are: - amiodarone 200 mg twice daily - metoprolol ER 100 mg by mouth daily - magnesium oxide 250 mg by mouth daily - Naprosyn 250 mg by mouth twice a day as needed pain - Eliquis 2.5 mg by mouth twice a day - Lipitor 10 mg by mouth daily - bupropion 100 mg by mouth daily - vitamin C 1000 units by mouth daily - escitalopram oxylate 10 mg by mouth daily - hydralazine 12.5 mg by mouth every 8 - detemir 20 units subcutaneous at bedtime - Prilosec 20 mg daily - Lyrica 150 mg by mouth twice a day - tamsulosin 0.4 mg by mouth daily - tramadol 50 mg by mouth twice a day ALLERGIES: The patient is allergic to LATEX and PENICILLINS. FAMILY HISTORY: No family history that is significant. SOCIAL HISTORY: The patient lives with his granddaughter. He has been for about a year. No smoking, alcohol or drugs. PHYSICAL EXAMINATION: VITALS: On exam the patient's vitals currently he is afebrile to 97.4, blood pressure (BP) 151/75, pulse of 36, respirations 22, saturating 97% on room air. GENERAL: He is in no acute distress and breathing comfortably. HEENT: Oropharynx clear. CARDIOVASCULAR: The patient is bradycardic. No murmurs, rubs or gallops. LUNGS: Lungs clear to auscultation bilaterally. ABDOMEN: Obese, nontender, nondistended. EXTREMITIES: No clubbing, cyanosis or edema. NEUROLOGICAL: He is alert and oriented times three. He follows simple commands and has no focal neurological deficits. SKIN: The patient has a small right heel ulcer without any pus or significant erythema. PSYCHIATRIC: Mood stable. LABORATORY RESULTS: Reveal: White count 6.5, hemoglobin 10.6, platelets of 114. Chemistry: Creatinine is 2.03, last was 1.67. Coagulation panel (coags): INR is 1.93, PT is 22, partial thromboplastin time (PTT) is 39. IMAGING: The patient had a head CT done that just showed small-vessel ischemic disease. A femur x-ray was also done and shows healing of right hip fracture fixed by intramedullary trent. A chest x-ray was also done that shows chronic changes without any acute process. Pelvis x-ray also shows chronic changes without any acute process. ASSESSMENT AND PLAN: This is a 68-year-old gentleman with past medical history of atrial fibrillation (AFib) on Eliquis, hypertension, hyperlipidemia, coronary artery disease, diabetes with recent fall and right hip fracture in September of 2018 status post open reduction and internal fixation (ORIF) and recent discharge from acute rehabilitation on November 04, 2018 who now presents status post a fall found to be significantly bradycardic. PROBLEMS: 1. Asymptomatic bradycardia. The patient is quite bradycardic to heart rate in the 30s. He is completely asymptomatic from this. I am going to admit him to the intensive care unit (ICU) for close telemetry and hemodynamic monitoring. I have spoken with Dr. Coronado with cardiology and he will see the patient tomorrow. For now, I am holding his amiodarone and metoprolol. These medications will have to be optimized per cardiology. The patient's outpatient gluing machine offbearer is Dr. Johnson. 2. Acute kidney injury (YULIANA). The patient does have a mild acute kidney injury (YULIANA) on chronic kidney disease (CKD) as his creatinine is slightly elevated from his baseline. The emergency room did start him on some intravenous (IV) fluids and repeat basic metabolic panel (BMP) can be checked tomorrow. Encourage by mouth intake. 3. Status post fall. I will obtain a physical therapy (PT)/occupational therapy (OT)/social work consult to assist in this patient's placement. Perhaps he needs more rehabilitation prior to discharge home. His bedroom at his granddaughter's house is on the second floor and he must be able to negotiate stairs safely to be able to return back to his granddaughter's home. 4. Diabetes. We will continue him on his home detemir and insulin sliding scale. 5. Hypertension. Continue his home hydralazine. 6. Benign prostatic hyperplasia (BPH). Continue his home tamsulosin. 7. Wound care. The patient does have a small right heel wound and I am obtaining a wound care consult. 8. Deep vein thrombosis (DVT) prophylaxis. The patient is already on Eliquis for his atrial fibrillation (AFib).
[2018-12-02 05:09] LABS: HEMATOCRIT 31.2 % (42.0-52.0); HEMOGLOBIN 9.5 g/dl (13.5-17.5); MEAN CORPUSCULAR HEMOGLOBIN 29.9 pg (27.0-33.0); MEAN CORPUSCULAR HGB CONC 30.4 g/dl (32.0-36.5); MEAN CORPUSCULAR VOLUME 98.1 fl (80.0-96.0); RED BLOOD COUNT 3.18 10^6/uL (4.30-6.10); WHITE BLOOD COUNT 5.5 10^3/uL (4.0-10.0)
[2018-12-02 05:24] LABS: CALCIUM LEVEL 7.4 MG/DL (8.8-10.2); CREATININE FOR GFR 2.39 MG/DL (0.70-1.30); GLOMERULAR FILTRATION RATE 28.8 (>42); POTASSIUM SERUM 4.9 MEQ/L (3.5-5.1)
[2018-12-02 05:46] LABS: PLATELET COUNT, AUTOMATED 87 10^3/uL (150-450)
[2018-12-02] MEDS: **hydrALAZINE HCL** 25 MG TAB PO SCH ×3 (06:12→21:06)
[2018-12-02] MEDS: HumaLOG INSULIN (NovoLOG) PER UNIT SC SCH ×4 (07:50→21:07)
[2018-12-02] MEDS: NS 1,000 ML IV SCH (07:51)
[2018-12-02] MEDS: OMEPRAZOLE 20 MG CAP PO SCH (09:15)
[2018-12-02] MEDS: APIXABAN 2.5 MG TAB (ELIQUIS) PO SCH ×2 (09:15→21:07)
[2018-12-02] MEDS: ATORVASTATIN 10 MG TAB PO SCH (09:15)
[2018-12-02] MEDS: TAMSULOSIN 0.4 MG CAP PO SCH (09:15)
[2018-12-02] MEDS: VITAMIN D 1,000 INTERNATIONAL UNITS TABLET PO SCH (09:16)
[2018-12-02] MEDS: traMADol 50 MG TAB PO SCH ×2 (09:17→21:07)
[2018-12-02] MEDS: buPROPion (WELLBUTRIN SR) 100 MG SR TAB PO SCH (09:17)
[2018-12-02] MEDS: PREGABALIN 75 MG CAP(LYRICA) PO SCH ×2 (09:17→21:05)
[2018-12-02] MEDS: ESCITALOPRAM OXALATE 10 MG TAB (LEXAPRO) PO SCH (09:17)
[2018-12-02] MEDS: NYSTATIN 100,000 UNITS/GM TOPICAL PWD 15 GM TOP SCH ×2 (09:19→21:06)
--- NOTE | 2018-12-02 14:30 | REP ---
URINARY TRACT SONOGRAPHY: HISTORY: Acute kidney injury. COMPARISON STUDY: September 29, 2018. FINDINGS: The urinary bladder could not be seen, presumably empty. Renal cortical echogenicity pattern is increased bilaterally consistent with some degree of chronic medical renal disease. There is no evidence of hydronephrosis on either side. No cyst or mass is seen. Right kidney measures 12.9 x 6.8 x 5.0 cm. Left renal dimensions are 12.8 x 5.7 x 6.3 cm. IMPRESSION: Increased renal cortical echogenicity pattern consistent with medical renal disease. No hydronephrosis seen. Otherwise negative. Empty urinary bladder. Electronically Signed by Mauro Avila MD 12/02/2018 03:12 P
--- NOTE | 2018-12-02 16:16 | IPNPDOC ---
Subjective Date Seen The patient was seen on 12/02/18. Subjective Chief Complaint/HPI Patient seen and examined at bedside. No acute complaints offered at this time. The patient remains in sinus bradycardia with a heart rate in the 30s-40s. However, he remains asymptomatic and denies any complaints of chest pain, palpitations, lightheaded, or dizziness. Objective Physical Examination General Exam: Positive: Alert, Cooperative, No Acute Distress ENT Exam: Positive: Atraumatic, Mucous membr. moist/pink Neck Exam: Negative: JVD Chest Exam: Positive: Clear to auscultation, Normal air movement Heart Exam: Positive: Bradycardic, Normal S1, Normal S2 Telemetry: Positive: Sinus Abdomen Exam: Positive: Soft; Negative: Tenderness Extremity Exam: Positive: Swelling (Trace pitting edema noted in the lower extremities bilaterally); Negative: Tenderness Psych Exam: Positive: Oriented x 3 Assessment /Plan Plan/VTE VTE Prophylaxis Ordered?: Yes Plan Sinus Bradycardia in the Setting of Recurrent Falls Likely 2/2 high doses of Amiodarone and Metoprolol It appears that the patient has been taking Amiodarone 200mg BID--which he was recently instructed to reduce to 100mg daily on his last admission to [facility] There is also a question of whether the patient should be on Metoprolol 100mg vs 25mg daily We will withhold both medications at this time given bradycardia and monitor on Telemetry Cardiology consulted for further optimization of his medications Elevated Serum Cr in a patient with CKD Stage IIIB Baseline Serum Cr ~1.7---Serum Cr this AM is 2.39 Hold Nephrotoxins Gentle IVF Hydration ordered Renal U/S with no acute findings We will cont to monitor Hx of CAD s/p PCI in 1980s Cont Statin (Metoprolol on hold 2/2 #1, Not on PRESTON-I/ARB 2/2 CKD) Functional Debility Weakness s/p recent Right Hip Fracture with repair in September 2018 which was followed by a stay [facility] PT ordered for functional optimization here Diabetes Mellitus Cont insulin regimen as ordered Diabetic neuropathy Continue Lyrica Hypertension Cont Hydralazine BPH Cont Flomax GERD Continue PPI Dyslipidemia Continue Lipitor Anxiety/depression Continue Lexapro, Wellbutrin DVT Prophylaxis On Eliquis Dispo--pending PT eval/clearance, Cardiology consult. VS, I&O, 24H, Fishbone Vital Signs/I&O Vital Signs Date Time Temp Pulse Resp B/P (MAP) Pulse Ox O2 Delivery O2 Flow Rate FiO2 12/02/18 15:32 134/62 12/02/18 15:00 56 14 92 12/02/18 12:00 98.2 12/02/18 08:00 2.0 12/01/18 19:31 Room Air I&O- Last 24 Hours up to 6 AM 12/02/18 06:00 Intake Total 1440 ml Output Total 200 ml Balance 1240 ml Laboratory Data 24H LABS Laboratory Tests 2 12/01/18 16:55: Urine Color YELLOW, Urine Appearance CLEAR, Urine pH 5.0, Urine Specific [place] 1.014, Urine Protein NEGATIVE, Urine Glucose (UA) NEGATIVE, Urine Ketones NEGATIVE, Urine Blood NEGATIVE, Urine Nitrite NEGATIVE, Urine Bilirubin NEGATIVE, Urine Urobilinogen 0.2, Urine Leukocyte Esterase 2+H, Urine WBC (Auto) 7H, Urine RBC (Auto) 1, Urine Hyaline Casts (Auto) 0, Urine Bacteria (Auto) NEGATIVE, Urine Squamous Epithelial Cells 0, Urine Amorphous Sediment SMALLH, Urine Mucus (Auto) SMALL, Urine Sperm (Auto) , Influenza Type A (RT-PCR) NEGATIVE, Influenza Type B (RT-PCR) NEGATIVE 12/01/18 20:37: Bedside Glucose (Misc Panel) 128H 12/02/18 04:43: Nucleated Red Blood Cells % (auto) 0.0, Immature Platelet Fraction 2.1, Anion Gap 7L, Glomerular Filtration Rate 28.8L, Blood Urea Nitrogen 70H, Creatinine 2.39H, Sodium Level 138, Potassium Level 4.9, Chloride Level 111H, Carbon Dioxide Level 20L, Calcium Level 7.4L 12/02/18 12:05: Bedside Glucose (Misc Panel) 166H CBC/BMP Laboratory Tests 12/02/18 04:43 Red Blood Count 3.18 L, Mean Corpuscular Volume 98.1 H, Mean Corpuscular Hemoglobin 29.9, Mean Corpuscular Hemoglobin Concent 30.4 L, Red Cell Distribution Width 15.1 H, Calcium Level 7.4 L Microbiology Microbiology 12/01/18 Urine Culture - Final, Complete MICHA VERGARA MD Dec 02, 2018 16:16
[2018-12-02] MEDS: LEVEMIR (INSULIN DETEMIR) 1 UNITS/0.01ML SC SCH (21:06)
[2018-12-03] VITALS (10 sets, daily range): BP systolic 120–153; BP diastolic 60–83
--- NOTE | 2018-12-03 06:07 | ECGEPIP ---
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
[2018-12-03] MEDS: **hydrALAZINE HCL** 25 MG TAB PO SCH ×2 (06:25→15:30)
[2018-12-03] MEDS: HumaLOG INSULIN (NovoLOG) PER UNIT SC SCH ×4 (07:30→21:00)
[2018-12-03 08:36] LABS: HEMATOCRIT 31.1 % (42.0-52.0); HEMOGLOBIN 9.4 g/dl (13.5-17.5); MEAN CORPUSCULAR HEMOGLOBIN 29.7 pg (27.0-33.0); MEAN CORPUSCULAR HGB CONC 30.2 g/dl (32.0-36.5); MEAN CORPUSCULAR VOLUME 98.1 fl (80.0-96.0); RED BLOOD COUNT 3.17 10^6/uL (4.30-6.10); WHITE BLOOD COUNT 4.4 10^3/uL (4.0-10.0)
[2018-12-03 08:38] LABS: PLATELET COUNT, AUTOMATED 92 10^3/uL (150-450)
[2018-12-03 09:01] LABS: CALCIUM LEVEL 7.6 MG/DL (8.8-10.2); CREATININE FOR GFR 2.62 MG/DL (0.70-1.30); GLOMERULAR FILTRATION RATE 25.9 (>42); POTASSIUM SERUM 4.5 MEQ/L (3.5-5.1)
[2018-12-03] MEDS: VITAMIN D 1,000 INTERNATIONAL UNITS TABLET PO SCH (09:24)
[2018-12-03] MEDS: APIXABAN 2.5 MG TAB (ELIQUIS) PO SCH (09:25)
[2018-12-03] MEDS: ESCITALOPRAM OXALATE 10 MG TAB (LEXAPRO) PO SCH (09:25)
[2018-12-03] MEDS: TAMSULOSIN 0.4 MG CAP PO SCH (09:25)
[2018-12-03] MEDS: OMEPRAZOLE 20 MG CAP PO SCH (09:25)
[2018-12-03] MEDS: PREGABALIN 75 MG CAP(LYRICA) PO SCH ×2 (09:25→21:18)
[2018-12-03] MEDS: ATORVASTATIN 10 MG TAB PO SCH (09:25)
[2018-12-03] MEDS: traMADol 50 MG TAB PO SCH ×2 (09:26→21:19)
[2018-12-03] MEDS: NYSTATIN 100,000 UNITS/GM TOPICAL PWD 15 GM TOP SCH ×2 (09:26→21:20)
[2018-12-03] MEDS: buPROPion (WELLBUTRIN SR) 100 MG SR TAB PO SCH (09:26)
[2018-12-03] MEDS: NS 1,000 ML IV SCH (11:35)
[2018-12-03 12:37] LABS: CREATININE,RANDOM URINE 63.4 MG/DL
--- NOTE | 2018-12-03 13:11 | IPNPDOC ---
Subjective Date Seen The patient was seen on 12/03/18. Subjective Chief Complaint/HPI Patient seen and examined at bedside. He states that he has been having a runny nose, cough, and congestion over the last 24 hours. Respiratory panel has been ordered. Otherwise, the patient denies any other acute complaints at this time. Objective Physical Examination General Exam: Positive: Alert, Cooperative, No Acute Distress ENT Exam: Positive: Atraumatic, Mucous membr. moist/pink Neck Exam: Negative: JVD Chest Exam: Positive: Clear to auscultation, Normal air movement Heart Exam: Positive: Bradycardic, Normal S1, Normal S2 Telemetry: Positive: Sinus Abdomen Exam: Positive: Soft; Negative: Tenderness Extremity Exam: Positive: Swelling (Trace pitting edema noted in the lower extremities bilaterally); Negative: Tenderness Psych Exam: Positive: Oriented x 3 Assessment /Plan Plan/VTE VTE Prophylaxis Ordered?: Yes Plan Sinus Bradycardia in the Setting of Recurrent Falls Likely 2/2 high doses of Amiodarone and Metoprolol It appears that the patient has been taking Amiodarone 200mg BID--which he was recently instructed to reduce to 100mg daily on his last admission to [facility] There is also a question of whether the patient should be on Metoprolol 100mg vs 25mg daily We will withhold both medications at this time given bradycardia and monitor on Telemetry Cardiology consulted for further optimization of his medications Elevated Serum Cr in a patient with CKD Stage IIIB Baseline Serum Cr ~1.7---Serum Cr this AM is up to 2.6 this AM Hold Nephrotoxins FENa noted to be 0.3%, suggestive of Pre-Renal etiology-->Gentle IVF Hydration ordered Renal U/S with no acute findings We will cont to monitor Hx of CAD s/p PCI in 1980s Cont Statin (Metoprolol on hold 2/2 #1, Not on PRESTON-I/ARB 2/2 CKD) Functional Debility Weakness s/p recent Right Hip Fracture with repair in September 2018 which was followed by a stay [facility] PT ordered for functional optimization here Possibly 2/2 underlying Viral URI?-->Respiratory Panel ordered Diabetes Mellitus Cont insulin regimen as ordered Diabetic neuropathy Continue Lyrica Hypertension Cont Hydralazine BPH Cont Flomax GERD Continue PPI Dyslipidemia Continue Lipitor Anxiety/depression Continue Lexapro, Wellbutrin DVT Prophylaxis On Eliquis Dispo--pending clinical improvement, PT eval/clearance. VS, I&O, 24H, Fishbone Vital Signs/I&O Vital Signs Date Time Temp Pulse Resp B/P (MAP) Pulse Ox O2 Delivery O2 Flow Rate FiO2 12/03/18 11:35 98.1 55 20 147/74 (98) 100 2.0 12/01/18 19:31 Room Air I&O- Last 24 Hours up to 6 AM 12/03/18 06:00 Intake Total 2020 ml Output Total 1100 ml Balance 920 ml Laboratory Data 24H LABS Laboratory Tests 2 12/02/18 17:34: Bedside Glucose (Misc Panel) 126H 12/02/18 20:27: Bedside Glucose (Misc Panel) 160H 12/03/18 08:26: Nucleated Red Blood Cells % (auto) 0.0, Immature Platelet Fraction 2.0, Anion Gap 9, Glomerular Filtration Rate 25.9L, Blood Urea Nitrogen 81H, Creatinine 2.62H, Sodium Level 141, Potassium Level 4.5, Chloride Level 111H, Carbon Di oxide Level 21, Calcium Level 7.6L 12/03/18 09:03: Bedside Glucose (Misc Panel) 128H 12/03/18 11:44: Urine Random Creatinine 63.4, Urine Random Sodium 10 CBC/BMP Laboratory Tests 12/03/18 08:26 Red Blood Count 3.17 L, Mean Corpuscular Volume 98.1 H, Mean Corpuscular Hemoglobin 29.7, Mean Corpuscular Hemoglobin Concent 30.2 L, Red Cell Distribution Width 14.6 H, Calcium Level 7.6 L Microbiology Microbiology 12/03/18 Respiratory Virus Panel (PCR) (PHI), Received Pending 12/01/18 Urine Culture - Final, Complete MICHA VERGARA MD Dec 03, 2018 13:11
[2018-12-03] MEDS ORDERED: DOBUTamine HCL 500,000 MCG in APPROPRIATE DILUENT 1 EA IV SCH ×2 (20:45→21:30)
[2018-12-03] MEDS: LEVEMIR (INSULIN DETEMIR) 1 UNITS/0.01ML SC SCH (21:17)
[2018-12-03] MEDS: DOBUTamine HCL 500,000 MCG in APPROPRIATE DILUENT 1 EA IV SCH (22:31)
[2018-12-04] VITALS (25 sets, daily range): BP systolic 123–189; BP diastolic 56–81
--- NOTE | 2018-12-04 00:21 | ECGEPIP ---
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 , HEART RATE IS NOW FASTER AND [place] INTERVAL SEEMS TO BE SHORTER Electronically Signed On 12-04-2018 0:21:41 EDT by Anand Lipscomb
[2018-12-04] MEDS: NS 1,000 ML IV SCH ×3 (00:42→20:54)
[2018-12-04 04:38] LABS: HEMATOCRIT 30.2 % (42.0-52.0); HEMOGLOBIN 9.1 g/dl (13.5-17.5); MEAN CORPUSCULAR HEMOGLOBIN 29.4 pg (27.0-33.0); MEAN CORPUSCULAR HGB CONC 30.1 g/dl (32.0-36.5); MEAN CORPUSCULAR VOLUME 97.4 fl (80.0-96.0); WHITE BLOOD COUNT 5.3 10^3/uL (4.0-10.0)
[2018-12-04 04:40] LABS: PLATELET COUNT, AUTOMATED 94 10^3/uL (150-450)
[2018-12-04 04:50] LABS: CALCIUM LEVEL 7.6 MG/DL (8.8-10.2); CREATININE FOR GFR 2.65 MG/DL (0.70-1.30); GLOMERULAR FILTRATION RATE 25.5 (>42); POTASSIUM SERUM 4.4 MEQ/L (3.5-5.1)
[2018-12-04] MEDS: HumaLOG INSULIN (NovoLOG) PER UNIT SC SCH ×4 (07:24→20:54)
[2018-12-04] MEDS: ESCITALOPRAM OXALATE 10 MG TAB (LEXAPRO) PO SCH (09:00)
[2018-12-04] MEDS: TAMSULOSIN 0.4 MG CAP PO SCH (09:01)
[2018-12-04] MEDS: OMEPRAZOLE 20 MG CAP PO SCH (09:01)
[2018-12-04] MEDS: buPROPion (WELLBUTRIN SR) 100 MG SR TAB PO SCH (09:01)
[2018-12-04] MEDS: ATORVASTATIN 10 MG TAB PO SCH (09:01)
[2018-12-04] MEDS: PREGABALIN 75 MG CAP(LYRICA) PO SCH ×2 (09:02→20:52)
[2018-12-04] MEDS: traMADol 50 MG TAB PO SCH ×2 (09:03→20:53)
[2018-12-04] MEDS: DOBUTamine HCL 500,000 MCG in APPROPRIATE DILUENT 1 EA IV SCH (09:03)
[2018-12-04] MEDS: VITAMIN D 1,000 INTERNATIONAL UNITS TABLET PO SCH (09:03)
[2018-12-04] MEDS: NYSTATIN 100,000 UNITS/GM TOPICAL PWD 15 GM TOP SCH ×2 (09:03→20:54)
--- NOTE | 2018-12-04 12:50 | IPN ---
DATE: 12/04/2018 TIME: 11:[address] 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 SUBJECTIVE: The patient is comfortable at rest. He is not feeling lightheaded or dizzy. No presyncope or syncope. No shortness of breath at rest. No chest pain or chest discomfort. No complaints. PHYSICAL EXAMINATION: Pleasant, morbidly obese, man not in any respiratory or psychological distress. Height is 65 inches, weight 133 kg, Body Mass Index (BMI) 48.8, temperature 97.0, pulse 41 (bedside monitor shows underlying sinus rhythm with 2:1 Mobitz type II second degree AV block. Respiratory rate 16. Blood pressure 134/61, oxygen saturation 97% on oxygen 2 liters per minute by nasal cannula. Jugular venous pulsations were at 3 cm. First heart sound was diminished, widely split second heart sound. No S3, S4 or murmurs appreciated. Carotids are normal in volume and contour and without bruits. Respiratory expansion effort was good. No crackles or wheezes. Abdomen was soft and nontender with normal bowel sounds. No hepatosplenomegaly or organomegaly. Liver span difficult to assess due to abdominal obesity. No lower extremity edema. Mood and affect normal. Speech was normal. No skin pallor, skin lesions or icterus. LABORATORY WORK: 12/04/2018: Reviewed: Hemoglobin 9.1, hematocrit 30.2, platelets 94. Sodium 140, potassium 4.4, chloride 111, CO2 19, BUN 84, creatinine 2.65, estimated GFR 25.5, glucose 206, calcium 7.6. Rhythm strips this morning show underlying sinus rhythm with Mobitz type II second degree AV block with 2:1 AV conduction (block). ASSESSMENT AND PLAN: 1. Paroxysmal atrial fibrillation. Eliquis is on hold as the patient awaits permanent pacemaker implantation. Metoprolol succinate and amiodarone are both on hold because of symptomatic bradycardia. Awaiting pacemaker implantation. 2. Mobitz type II second degree AV block with 2:1 AV conduction with resultant symptomatic bradycardia. 3. Plan will be for implantation of a permanent dual-chamber pacemaker. Implantation of dual-chamber pacemaker was explained to the patient, including the alternative of no pacemaker. Without a pacemaker I explained to the patient that he is at increased risk for syncope and its consequences, as well as sudden cardiac . Risks explained to the patient included but not all inclusive as outlined on the consent form, infection (1 to 2%), bleeding, pneumothorax (1%), poor wound healing, adverse drug reaction, cardiac arrhythmias, lead dislodgement, cardiac perforation with cardiac tamponade (11/999). I explained to the patient that his risk of bleeding is higher because of recent use of Eliquis, as well as low platelet count. I explained that he is at high risk for infection because of kidney disease and diabetes. The patient signed the consent form to proceed with dual-chamber pacemaker implantation. The plan will be to proceed with the pacemaker implantation tomorrow to allow the Eliquis to wear off some more. 4. Right bundle branch block. This patient's right bundle branch block is associated with more extensive conduction system disease in that he also currently has Mobitz type II second degree AV block. As mentioned above, the plan will be due to plant a permanent dual-chamber pacemaker because of the Mobitz type II second degree AV block. 5. Systemic hypertension. Blood pressure is presently controlled. He is not presently on any antihypertensive agents. 6. Coronary artery disease without angina. The patient remains angina free. He is not on any medication for coronary artery disease at present. Use of aspirin is fairly contraindicated at this time because of low platelet count. 7. Remote history of percutaneous coronary intervention. The patient remains angina free. 8. Hyperlipidemia. I will place the patient on a DASH diet. At present, he is not on any statin therapy. No recent lab values for our review. MTDD
--- NOTE | 2018-12-04 14:44 | IPNPDOC ---
Subjective Date Seen The patient was seen on 12/04/18. Subjective Chief Complaint/HPI Patient seen and examined at the bedside this morning. He states that he is feeling somewhat better overall. Denies any complaints of chest pain, palpitations, abdominal pain, or any nausea/vomiting/diarrhea. The patient remains bradycardic and is tentatively scheduled for a dual-chamber pacemaker placement by cardiology. Objective Physical Examination General Exam: Positive: Alert, Cooperative, No Acute Distress ENT Exam: Positive: Atraumatic, Mucous membr. moist/pink Neck Exam: Negative: JVD Chest Exam: Positive: Clear to auscultation, Normal air movement Heart Exam: Positive: Bradycardic, Normal S1, Normal S2 Abdomen Exam: Positive: Soft; Negative: Tenderness Extremity Exam: Negative: Tenderness, Swelling Psych Exam: Positive: Oriented x 3 Assessment /Plan Plan/VTE VTE Prophylaxis Ordered?: Yes Plan Bradycardia 2/2 Mobitz Type II Second Degree AV Block with 2:1 AV conduction The patient has been started on a Dobutamine gtt as per Cardiology Amiodarone and Metoprolol which the patient was previously taking has been held since admission Cardiology on board--patient scheduled for implantation of a permanent dual- chamber pacemaker Acute Kidney Injury Superimposed on CKD Stage IIIB likely 2/2 Above Baseline Serum Cr ~1.7---Serum Cr this AM is 2.6 this AM Hold Nephrotoxins FENa noted to be 0.3%, suggestive of Pre-Renal etiology-->Gentle IVF Hydration o rdered Renal U/S with no acute findings We will cont to monitor--if patient's serum creatinine does not improve with gentle IVF hydration and dobutamine gtt, we will consider Nephrology consultation Hx of CAD s/p PCI in 1980s Cont Statin (Metoprolol on hold 2/2 #1, Not on PRESTON-I/ARB 2/2 CKD) Paroxysmal A-Fib Metoprolol, Amiodarone discontinued 2/2 Above Eliquis held for pacemaker placement Functional Debility Weakness s/p recent Right Hip Fracture with repair in September 2018 which was followed by a stay [facility] PT ordered for functional optimization here Diabetes Mellitus Cont insulin regimen as ordered Diabetic neuropathy Continue Lyrica Hypertension Cont Hydralazine BPH Cont Flomax GERD Continue PPI Dyslipidemia Continue Lipitor Anxiety/depression Continue Lexapro, Wellbutrin DVT Prophylaxis SCDs/TEDs (Eliquis on hold 2/2 Above) Dispo--pending clinical improvement, pacemaker placement, and PT eval/clearance. VS, I&O, 24H, Fishbone Vital Signs/I&O Vital Signs Date Time Temp Pulse Resp B/P (MAP) Pulse Ox O2 Delivery O2 Flow Rate FiO2 12/04/18 14:01 41 144/65 (91) 95 2.0 12/04/18 12:01 97.0 16 12/01/18 19:31 Room Air I&O- Last 24 Hours up to 6 AM 12/04/18 06:00 Intake Total 2902.13 ml Output Total 1350 ml Balance 1552.13 ml Laboratory Data 24H LABS Laboratory Tests 2 12/03/18 17:12: Bedside Glucose (Misc Panel) 181H 12/03/18 21:07: Bedside Glucose (Misc Panel) 220H 12/04/18 03:56: Nucleated Red Blood Cells % (auto) 0.0, Anion Gap 10, Glomerular Filtration Rate 25.5L, Blood Urea Nitrogen 84H, Creatinine 2.65H, Sodium Level 140, Potassium Level 4.4, Chloride Level 111H, Carbon Dioxide Level 19L, Calcium Level 7.6L 12/04/18 07:17: Bedside Glucose (Misc Panel) 207H 12/04/18 13:03: Bedside Glucose (Misc Panel) 200H CBC/BMP Laboratory Tests 12/04/18 03:56 Red Blood Count 3.10 L, Mean Corpuscular Volume 97.4 H, Mean Corpuscular Hemoglobin 29.4, Mean Corpuscular Hemoglobin Concent 30.1 L, Red Cell Distribution Width 15.0 H, Calcium Level 7.6 L Microbiology Microbiology 12/03/18 Respiratory Virus Panel (PCR) (PHI) - Final, Complete 12/01/18 Urine Culture - Final, Complete MICHA VERGARA MD Dec 04, 2018 14:44
[2018-12-04] MEDS: LEVEMIR (INSULIN DETEMIR) 1 UNITS/0.01ML SC SCH (20:52)
[2018-12-04] MEDS ORDERED: MAALOX 30 ML SUSP *UDC PO PRN (21:15)
[2018-12-05] VITALS (26 sets, daily range): BP systolic 89–193; BP diastolic 43–88
[2018-12-05] MEDS ORDERED: SODIUM CHLORIDE NASAL 0.65% SPRAY BTL (OCEAN) PRN (02:00)
[2018-12-05] MEDS ORDERED: ONDANSETRON 4MG/2ML VIAL (J2405) As Ordered ONE (02:41)
[2018-12-05] MEDS ORDERED: ONDANSETRON 4MG/2ML VIAL (J2405) IV SCH (03:00)
[2018-12-05] MEDS ORDERED: ONDANSETRON 4MG/2ML VIAL (J2405) IV PRN (03:45)
[2018-12-05 05:10] LABS: HEMATOCRIT 31.9 % (42.0-52.0); HEMOGLOBIN 9.6 g/dl (13.5-17.5); MEAN CORPUSCULAR HGB CONC 30.1 g/dl (32.0-36.5); MEAN CORPUSCULAR VOLUME 96.4 fl (80.0-96.0); RED BLOOD COUNT 3.31 10^6/uL (4.30-6.10); WHITE BLOOD COUNT 6.8 10^3/uL (4.0-10.0)
[2018-12-05 05:12] LABS: PLATELET COUNT, AUTOMATED 94 10^3/uL (150-450)
[2018-12-05 05:37] LABS: CALCIUM LEVEL 8.1 MG/DL (8.8-10.2); CREATININE FOR GFR 2.67 MG/DL (0.70-1.30); GLOMERULAR FILTRATION RATE 25.3 (>42); POTASSIUM SERUM 5.3 MEQ/L (3.5-5.1)
[2018-12-05] MEDS: NS 1,000 ML IV SCH (06:28)
[2018-12-05] MEDS ORDERED: VANCOMYCIN HCL 1,000 MG, VIAL MATE ADAPTER 1 EACH in D5W 250 ML IV ONE (07:00)
[2018-12-05] MEDS: NYSTATIN 100,000 UNITS/GM TOPICAL PWD 15 GM TOP SCH ×2 (07:30→20:49)
[2018-12-05] MEDS: HumaLOG INSULIN (NovoLOG) PER UNIT SC SCH ×4 (07:30→20:49)
[2018-12-05] MEDS ORDERED: fentaNYL 100 MCG/2 ML INJECTION (J3010) As Ordered ONE (07:54)
[2018-12-05] MEDS ORDERED: LIDOCAINE 2% INJ 100 MG/5 ML SDV (FOR ANES.) As Ordered ONE (07:54)
[2018-12-05] MEDS ORDERED: PROPOFOL 200 MG/20 ML VIAL As Ordered ONE (07:54)
[2018-12-05] MEDS ORDERED: MIDAZOLAM INJ 2 MG/2 ML VIAL (J2250) As Ordered ONE (07:54)
[2018-12-05] MEDS ORDERED: LIDOCAINE 1% SDV INJ 30 ML VIAL As Ordered ONE (08:10)
[2018-12-05] MEDS ORDERED: MUPIROCIN 2% OINT 22 GM TUBE As Ordered ONE (08:10)
[2018-12-05] MEDS ORDERED: ISOVUE-300 61% 50ML VIAL (Q9967) As Ordered ONE (08:11)
[2018-12-05] MEDS ORDERED: VANCOMYCIN 1000 MG/20 ML VIAL (J3370) As Ordered ONE (08:43)
[2018-12-05] MEDS: traMADol 50 MG TAB PO SCH ×2 (09:00→20:10)
[2018-12-05] MEDS: PREGABALIN 75 MG CAP(LYRICA) PO SCH ×2 (09:00→20:09)
[2018-12-05] MEDS: ASCORBIC ACID 250 MG TAB PO SCH ×2 (09:00→20:10)
[2018-12-05] MEDS ORDERED: KETAMINE HCL 200 MG/20 ML VIAL As Ordered ONE (09:56)
[2018-12-05] MEDS ORDERED: PERCOCET 5MG/325MG TAB PO PRN (11:45)
[2018-12-05] MEDS ORDERED: PATIROMER SORBITEX CALCIUM 8.4 GM POWDER PACKET (VELTASSA) PO ONE ×2 (12:00→18:00)
[2018-12-05] MEDS ORDERED: SODIUM CHLORIDE 0.9% 1000ML IV ONE (12:30)
--- NOTE | 2018-12-05 13:41 | ECGEPIP ---
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 Electronically Signed On 12-05-2018 13:41:38 EDT by Jovani Coronado
[2018-12-05] MEDS ORDERED: FUROSEMIDE 40 MG/4 ML VIAL (J1940) IV ONE (14:00)
[2018-12-05 14:56] LABS: MAGNESIUM LEVEL 2.5 MG/DL (1.8-2.4)
[2018-12-05] MEDS: FUROSEMIDE injection 250 MG in D5W 225 ML IV SCH (15:38)
[2018-12-05] MEDS: buPROPion (WELLBUTRIN SR) 100 MG SR TAB PO SCH (15:40)
[2018-12-05] MEDS: OMEPRAZOLE 20 MG CAP PO SCH (15:40)
[2018-12-05] MEDS: TAMSULOSIN 0.4 MG CAP PO SCH (15:40)
[2018-12-05] MEDS: ATORVASTATIN 10 MG TAB PO SCH (15:40)
[2018-12-05] MEDS: VITAMIN D 1,000 INTERNATIONAL UNITS TABLET PO SCH (15:40)
[2018-12-05] MEDS: ESCITALOPRAM OXALATE 10 MG TAB (LEXAPRO) PO SCH (15:41)
[2018-12-05] MEDS: AMIODARONE 200 MG TAB (PACERONE) PO SCH (15:41)
--- NOTE | 2018-12-05 16:32 | IPNPDOC ---
Subjective Date Seen The patient was seen on 12/05/18. Subjective Chief Complaint/HPI Patient seen and examined at the bedside this afternoon following pacemaker placement this morning. He was noted to be more short of breath, with significantly increased lower extremity edema compared to yesterday. In addition, the patient's serum creatinine has not improved despite IV fluid hydration and dobutamine drip. Nephrology has been consulted for further evaluation and management. Objective Physical Examination General Exam: Positive: Alert, Cooperative, Mild Distress (2/2 SOB) ENT Exam: Positive: Atraumatic, Mucous membr. moist/pink Chest Exam: Positive: Rales (bibasilar crackles noted on auscultation) Heart Exam: Positive: Rate Normal, Normal S1, Normal S2 Telemetry: Positive: Sinus (ventricular paced sinus rhythm) Abdomen Exam: Positive: Soft; Negative: Tenderness Extremity Exam: Positive: Other (2/3+ pitting edema of the lower extremities e xtending upwards towards the thighs); Negative: Tenderness Assessment /Plan Plan/VTE VTE Prophylaxis Ordered?: Yes Plan Bradycardia 2/2 Mobitz Type II Second Degree AV Block with 2:1 AV conduction Cardiology on board--s/p permanent dual-chamber pacemaker placement this morning Acute Kidney Injury Superimposed on CKD Stage IIIB likely 2/2 Above Baseline Serum Cr ~1.7---Serum Cr this AM is 2.6 despite IVF resuscitation and D obutamine gtt for bradycardia The patient noted to be in fluid overload this afternoon following pacemaker placement this morning. The patient has been started on IV Lasix. Nephrology has been consulted for further evaluation and management. Hyperkalemia 2/2 Above [place] ordered We will cont to monitor Serum K Hx of CAD s/p PCI in 1980s Cont Statin (Metoprolol on hold 2/2 #1, Not on PRESTON-I/ARB 2/2 CKD) Paroxysmal A-Fib Amiodarone restarted by Cardiology [facility] for AC Functional Debility Weakness s/p recent Right Hip Fracture with repair in September 2018 which was followed by a stay [facility] PT ordered for functional optimization here Diabetes Mellitus Cont insulin regimen as ordered Diabetic neuropathy Continue Lyrica Hypertension Cont Hydralazine BPH Cont Flomax GERD Continue PPI Dyslipidemia Continue Lipitor Anxiety/depression Continue Lexapro, Wellbutrin DVT Prophylaxis On Eliquis Dispo--pending clinical improvement VS, I&O, 24H, Fishbone Vital Signs/I&O Vital Signs Date Time Temp Pulse Resp B/P (MAP) Pulse Ox O2 Delivery O2 Flow Rate FiO2 12/05/18 16:01 99.0 77 17 115/55 (75) 95 3.0 12/01/18 19:31 Room Air I&O- Last 24 Hours up to 6 AM 12/05/18 06:00 Intake Total 1605 ml Output Total 500 ml Balance 1105 ml Laboratory Data 24H LABS Laboratory Tests 2 12/04/18 18:23: Bedside Glucose (Misc Panel) 164H 12/04/18 20:28: Bedside Glucose (Misc Panel) 163H 12/05/18 04:30: Nucleated Red Blood Cells % (auto) 0.0, Immature Platelet Fraction 2.4, Anion Gap 8, Glomerular Filtration Rate 25.3L, Blood Urea Nitrogen 88H, Creatinine 2.67H, Sodium Level 139, Potassium Level 5.3H, Chloride Level 112H, Carbon Dioxide Level 19L, Calcium Level 8.1L, Magnesium Level 2.5H, IL-Jwe-[id number]-Type Natriuretic Peptide [id number] 12/05/18 08:03: Bedside Glucose (Misc Panel) 197H 12/05/18 11:23: Bedside Glucose (Misc Panel) 229H CBC/BMP Laboratory Tests 12/05/18 04:30 Red Blood Count 3.31 L, Mean Corpuscular Volume 96.4 H, Mean Corpuscular Hemoglobin 29.0, Mean Corpuscular Hemoglobin Concent 30.1 L, Red Cell Distribution Width 15.0 H, Calcium Level 8.1 L Microbiology Microbiology 12/03/18 Respiratory Virus Panel (PCR) (PHI) - Final, Complete 12/01/18 Urine Culture - Final, Complete MICHA VERGARA MD Dec 05, 2018 16:32
[2018-12-05] MEDS: LEVEMIR (INSULIN DETEMIR) 1 UNITS/0.01ML SC SCH (20:49)
[2018-12-06 04:00] VITALS: BP 117/58
[2018-12-06 04:26] LABS: HEMATOCRIT 29.2 % (42.0-52.0); HEMOGLOBIN 8.9 g/dl (13.5-17.5); MEAN CORPUSCULAR HEMOGLOBIN 29.7 pg (27.0-33.0); MEAN CORPUSCULAR HGB CONC 30.5 g/dl (32.0-36.5); MEAN CORPUSCULAR VOLUME 97.3 fl (80.0-96.0); PLATELET COUNT, AUTOMATED 92 10^3/uL (150-450); WHITE BLOOD COUNT 5.8 10^3/uL (4.0-10.0)
[2018-12-06 04:53] LABS: CREATININE FOR GFR 2.64 MG/DL (0.70-1.30); GLOMERULAR FILTRATION RATE 25.7 (>42); POTASSIUM SERUM 4.5 MEQ/L (3.5-5.1)
--- NOTE | 2018-12-06 06:39 | REP ---
CHEST, PORTABLE: AP portable view of the chest is performed and compared to prior study 12/01/2018. The heart appears enlarged. Patient is rotated toward the left. There has been placement of a left dual lead pacemaker with atrial and ventricular leads apparently in good position. I do not see a pneumothorax. There appears to be vascular congestion. There appears to be some degree of interstitial edema. There are patchy opacities in the right lung base and probably the left lung base. Electronically Signed by Sammy Dunn MD 12/06/2018 09:16 A
--- NOTE | 2018-12-06 07:27 | RO ---
DATE OF OPERATION: 12/05/2018 PREOPERATIVE DIAGNOSIS: Mobitz type II second degree atrioventricular (AV) block with symptomatic bradycardia. POSTOPERATIVE DIAGNOSIS: Mobitz type II second degree atrioventricular (AV) block with symptomatic bradycardia. FINDINGS: Mobitz type II second degree atrioventricular (AV) block with symptomatic bradycardia. PROCEDURE: Implantation of permanent dual chamber pacemaker ([employer]). 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 Clay Mayorga obtaining subclavian vein access. ANESTHESIA: Lidocaine 1% local/monitored anesthesia care (MAC). SPECIMEN: None. ESTIMATED BLOOD LOSS: Less than 20 mL. REPLACED: No blood products replaced. DRAINS: None. COMPLICATIONS: None. PROCEDURE DESCRIPTION: Patient was prepped and draped over the left pectoral region. 3M Ioban film was applied. Lidocaine 1% was used for local anesthetic. A left subclavian venogram was performed via an antecubital peripheral IV in the left upper extremity using a total volume of 20 mL consisting of a mixture of 5:1 ISOVUE/normal saline. This was used in real time to try to get vein access by percutaneous technique into the extrathoracic portion of the left subclavian vein using a micropuncture needle. This was not successful. Next, I made an incision approximately 3 to 3-1/2 inches in length over the left pectoral region using a PEAK PlasmaBlade. The PEAK PlasmaBlade was used to dissect through the fatty layer and through the fibrous Linda's fascia. I then formed the pacemaker pocket using blunt dissection using two fingers to separate the prepectoral fascia from the Linda's fascia in a caudal direction. Next, at the level of the pectoral muscle, I used a micropuncture needle and then used the hollow steel needle that came with one of the 8-St Helenian sheaths and used this under fluoroscopic visualization with repeat of another 20 mL bolus of ISOVUE/normal saline to try to get vein access, which again was unsuccessful. I requested Dr. Clay Mayorga to obtain vein access since I was unsuccessful. Dr. Clay Mayorga was very kind to come into the OR, gown up and obtain vein access for me. He placed the Guidewire that came with one of the 8-St Helenian sheaths into the vein. At this point, I took over the rest of the pacemaker implant. I placed an 8-St Helenian sheath with introducer over the Guidewire and advanced into the vein. The introducer portion was removed leaving the Guidewire and sheath in place. I then took another Guidewire from the other 8-St Helenian sheath and placed it along side the first Guidewire within the 8-St Helenian sheath. Next, the 8-St Helenian sheath was removed leaving both Guidewires in the vein. I then placed the introducer back into the 8-St Helenian sheath and advanced it over one of the two Guidewires back into the vein. The introducer portion and Guidewire were then removed leaving the sheath in place and leaving the other Guidewire parallel to, but outside of the sheath. This 8-St Helenian sheath was used for vein access for the right ventricle lead, which was placed towards the right ventricle apex position and secured with a total of 10 turns. This position was found to be electrically and anatomically satisfactory. Next, I took another 8-St Helenian sheath with introducer and placed it over the remaining Guidewire and advanced it into the vein. The Guidewire and introducer portion were removed leaving the sheath in place. The atrial lead was then placed into the 8-St Helenian sheath and advanced under fluoroscopic guidance into the right atrial appendage position where it was secured with a total of 12 turns. This position was found to be electrically and anatomically satisfactory. The 8-St Helenian sheath was then broken apart and removed. Next, both of the atrial and ventricular leads were secured to the pectoral muscle with the supplied tie down sleeves using two individual sutures consisting of #0 Ethibond to secure the tie down sleeves to the pectoral muscle using individual sutures. Next, another #0 Ethibond suture was in the pectoral muscle to serve as the tie down for the pacemaker pulse generator. The pacemaker pocket was then irrigated with a solution containing vancomycin. Next, I took a medium sized TYRX antimicrobial envelop and cut it into six pieces which were placed into the floor of the pacemaker pocket. The terminal pins of the ventricle and atrial leads were plugged into their respective ports in the header of the pulse generator and each one was secured by tightening the set screws with the hex screwdriver. The excess lead material was then coiled underneath the pacemaker pulse generator and placed along with the pacemaker pulse generator into the pacemaker pocket. The pacemaker pulse generator was then secured to the pectoral muscle with the previously placed #0 Ethibond suture. The deep layer was then closed using individual sutures consisting of #2-0 Vicryl. Two additional #3-0 Vicryl sutures were used to help approximate the more superficial layer. The skin was then closed using greg. A final C mode pulse sequence was then obtained in the operating room to document final placement of the atrial and ventricular leads. Bactroban was applied across the incision followed by Telfa, OpSite, gauze pads, and then foam tape to form a pressure dressing. The patient then received a left arm sling before leaving the operating room. The patient tolerated the procedure well without any immediate complications. The pacemaker pulse generator implanted was a [employer] MRI with model number [id number] with serial number [id number]. The TYRX antimicrobial envelop implanted had reference number [id number] with lot number [id number]. The right ventricle lead implanted was a [employer] Tendril MRI with model number [id number], which was 58 cm and had serial number [id number]. Final testing in the operating room with the PSA analyzer for the right ventricle lead showed a capture threshold of 0.75 volts at 0.4 milliseconds with R wave amplitude of 11.1 millivolts and lead impedance of 990 ohms. The right atrial lead implanted was a [employer] Tendril MRI with model number [id number], which was 52 cm in length and had serial number [id number]. The P waves measured 0.7 millivolts and lead impedance was 510 ohms.
--- NOTE | 2018-12-06 07:29 | CR ---
DATE OF CONSULTATION: 12/03/2018 CARDIOLOGY CONSULTATION: REFERRING PROVIDER: Dr. Rodo Benavides REASON FOR CONSULTATION: Abnormal EKG. HISTORY OF PRESENT ILLNESS: 68-year-old male living in the [place] area was recently admitted here at [facility] on 10/06/2018 after a fall and was found to have a right intertrochanteric femoral fracture on 09/30/2018, which was repaired with internal fixation. He then was transferred to rehabilitation and discharged home. He has been doing well at home; and on the day prior to coming to the hospital, he was going up the stairs with the help of his daughter and his son-in-law when he suddenly felt very weak and fell down the stairs, face down, and he said that he slid down the stairs, but his grandson was able to slow him down. He did not pass out. He came to the hospital on 12/01/2018 and was admitted for further management and monitoring in intensive care unit (ICU). He was found to be markedly bradycardiac with first-degree atrioventricular (AV) block. It was reported by the nurse that, while in the ICU, he had episode of 2:1 AV block and then after that, his heart rate was mainly in sinus rhythm around 50 beats per minute and first-degree AV block. For this reason, he was transferred to progressive care unit (PCU). While in PCU, cardiology consult was ordered. Mr. Jose Mills was seen earlier this morning. He was in supine in bed in no acute distress at rest. He denies any chest pain, shortness of breath, or palpitations. He does have some bilateral pedal edema. There is no report of fever or chills. There is no cough or hemoptysis. There is no nausea, vomiting, diarrhea, melena, or hematemesis. His telemetry was reviewed this morning, and it revealed sinus rhythm at about 50 beats per minute and first-degree AV block as well as episode of Mobitz I second-degree AV block. 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 PAST SURGICAL HISTORY: Is positive for open reduction and internal fixation of the right femur on 09/30/2018. FAMILY HISTORY: Noncontributory. SOCIAL HISTORY: Patient lives with his daughter, and he is a former smoker; he had stopped years ago. There is no report of ethyl alcohol (EtOH) abuse. He has been a for about a year. ALLERGIES: He has allergies to LATEX and PENICILLIN. ADVANCE DIRECTIVES: Patient is a FULL CODE. PHYSICAL EXAMINATION: Patient is alert and oriented, in no acute distress at rest, and his vital signs when I saw him this evening revealed blood pressure of 146/71, pulse of 40, respiration 20, and his maximum temperature was 97.6 degrees Fahrenheit with an oxygen saturation of 97% on 2 liters nasal cannula. He has a positive fluid balance of 1.5 liters for 12/02/2018. Examination of the head: Atraumatic. Neck is supple, and no jugular venous distension (JVD) appreciated. The lungs did not reveal any wheezing or crackles. The heart examination revealed irregular heart sounds without gallops. The point of maximal impulse (PMI) is not displaced. There is no rub. I could not appreciate any murmurs. Abdomen is soft, obese, and nontender. Extremities revealed +1 to +2 bilateral lower leg and pedal edema. Neurological examination revealed minimal deficit on the left side. LABS: CBC done today revealed WBC of 4.4, hemoglobin 9.4, hematocrit 31.1, and platelets 92,000. BMP revealed a sodium of 141, potassium 4.5, chloride 111, CO2 of 21, BUN 81, creatinine 2.6, GFR 25.9, fasting glucose 108, and calcium 7.6. PT 22.4 with an INR of 1.93 and APTT of 39.3. Renal ultrasound done yesterday revealed increased renal cortical echogenicity pattern consistent with medical renal disease but no hydronephrosis. The bladder was empty. Chest x-ray done on admission revealed chronic changes and cardiomegaly. Head CT on admission revealed small vessel ischemic disease and mild volume loss. Pelvic x-ray on admission revealed chronic changes. Right hip x-ray revealed healing right hip fracture with intramedullary rods. Electrocardiogram on admission revealed what seems to be normal sinus rhythm with first-degree AV block and isolated premature atrial contractions (PACs), right bundle branch block. Heart rate was 43 beats per minute. Repeat electrocardiogram done the same day revealed marked sinus bradycardia at 33 beats per minute and first-degree AV block with a AK interval of about 300- 320 ms. There is underlying right bundle branch block and possible prior inferior wall infarct. Telemetry strips were reviewed again this evening, and no remarkable changes but sinus bradycardia, Mobitz I second-degree AV block, and first-degree AV block. MEDICATION PRIOR TO COMING TO THE HOSPITAL: - amiodarone 200 mg by mouth twice daily - metoprolol succinate 100 mg by mouth daily - magnesium oxide 250 mg by mouth daily - naproxen 250 mg by mouth twice a day - Eliquis 2.5 mg by mouth twice a day - Lipitor 10 mg by mouth daily - bupropion 100 mg by mouth daily - vitamin C 1000 units by mouth daily - escitalopram 10 mg by mouth daily - hydralazine 12.5 mg by mouth every 8 hours - detemir insulin 20 units subcu at bedtime - Prilosec 20 mg by mouth daily - Lyrica 150 mg by mouth twice a day - tamsulosin 0.4 mg by mouth daily - tramadol 50 mg by mouth twice a day CURRENT MEDICATIONS: - atorvastatin 10 mg by mouth daily - bupropion 100 mg by mouth daily - vitamin C 1000 units by mouth daily - escitalopram 10 mg by mouth daily - omeprazole 20 mg by mouth daily - tamsulosin 0.4 mg by mouth daily - insulin lispro as directed - hydralazine 12.5 mg every 8 hours - apixaban 2.5 mg by mouth twice a day - Levemir insulin 20 units subcu at hour of sleep - Lyrica 150 mg by mouth twice a day - tramadol 50 mg by mouth twice a day - Tylenol 650 mg every 4 hours as needed for pain or fever - also on D50 as well as glucose tablets and Glucagon for episodes of mild marked hypoglycemia IMPRESSION: 1. Atrial fibrillation, paroxysmal in nature. 2. Abnormal EKG manifested by marked sinus bradycardia with episodes of Mobitz I second-degree atrioventricular block, underlying first-degree atrioventricular block. 3. Recurrent falls. 4. History of coronary artery disease and percutaneous transluminal coronary angioplasty reported to be in 2000. Normal left ventricular ejection fraction (LVEF). 5. Hypertension. 6. Hyperlipidemia. 7. Diabetes mellitus. 8. Chronic kidney disease, seems to be deteriorating. 9. Anemia. 10. Gastroesophageal reflux disease (GERD). 11. History of anxiety/depression. 68-year-old man with the above medical problems who, prior to coming to the hospital, was on a big dose of metoprolol succinate at 100 mg by mouth daily and was supposed to be at 25 mg by mouth daily and later on was admitted on 12/01/2018 after a fall on the stairs at home without any loss of consciousness. Upon arrival at the hospital, he was found to be markedly bradycardiac and was first admitted to ICU, then transferred to PCU for further management and monitoring. He has not received a beta-diana and the amiodarone since in the hospital on 12/01/2018. Patient remained markedly bradycardiac and also weak according to his nurse and the nursing supervisor stave cutting on the floor. His renal function is not improving. I have discussed the above findings with him as well as his hospitalist covering, and patient was transferred to ICU for further management and monitoring. Pacemaker pads will be on, on standby, and I have discontinued the Eliquis because I believe he will need a pacemaker; he has a history of atrial fibrillation. He will need an AV blocking agent, and he also has a history of underlying coronary artery disease but unsure whether he has a history of myocardial infarction. He will be started on small fixed dose of dobutamine and we will monitor his heart rate over the weekend. Case was discussed with Dr. Coronado, and he stated he may proceed with a permanent pacemaker implantation after being off the Eliquis for 48 hours. Patient was transferred to ICU/critical care unit (CCU) for further management and monitoring. I have reviewed his medications; we should be careful with the hydralazine in view of a history of underlying coronary artery disease (CAD). It was reported that he had a normal LVEF. This can be addressed later on. His Eliquis also should be reassessed; if no contraindication, he might need a higher dose or be given a different non-vitamin K antagonist oral anticoagulant (NOAC) after adjusting it for his glomerular filtration rate (GFR). It was a pleasure to participate in the care of Mr. Jose Mills for his underlying cardiac condition. Dr. Coronado will be seeing him over the weekend. JT
[2018-12-06 08:00] VITALS: BP 125/80
--- NOTE | 2018-12-06 08:40 | IPN ---
DATE: 12/06/2018 Mr. Mills had a dual chamber pacemaker implanted by Dr. Coronado yesterday. It does not seem that there has been any immediate obvious benefit. The patient continues to be quite short of breath. He is consistently in sinus rhythm and ventricular paced. This morning he tells me that his shortness of breath, maybe slightly better than yesterday but not much, still had difficulty breathing at night. Denies any chest pain per se. Vital signs: Blood pressure 117/58, heart rate has been mostly in 70s. He is afebrile. Saturations 95-96% on 2 liters of oxygen. Fluid balance yesterday was -1270. He made about 3 liters of urine. Weight is 129 kg. He is alert and oriented and appropriate. His JVP is really difficult to registered respiratory therapist with his body habitus but it still appears high to me, even in sitting position. Lungs reveal end inspiratory crackles over at least one half of both lung sevilla and the breath sounds on the right base seem diminished. Heart exam somewhat muffled heart sound due to his size, but I do not appreciate any gallop or rub. Abdomen is markedly obese but soft. There is 1+ edema above his knees. Neurologically there is generalized weakness but otherwise he is intact. LABORATORIES: WBC count 9.8, hemoglobin 8.9, hematocrit 29 and platelet count 92,000. Basic metabolic panel sodium 142, potassium 4.5, BUN 83, creatinine 2.6, glucose 155 and terminal pro BNP was 17,591. Chest x-ray from yesterday after the pacemaker implantation does not reveal any pneumothorax, but it is, in my opinion, consistent with congestive heart failure. This morning ECG which will be portable is pending. The patient was just wheeled off ICU as I speak. ASSESSMENT/PLAN: Mr. Mills is a 68-year-old man who has a remote history of coronary intervention and he has chronic diastolic congestive heart failure. He presented after a syncopal event and was found to have intermittent second-degree atrioventricular (AV) block type 1 and 2 with baseline trifascicular block. His principal problem at this point appears to be congestive heart failure. He is still quite volume overloaded. Unfortunately, I tried to look at his weight since he has been here intermittently in September and there is such a wide fluctuation that is probably not possible to use it for making decisions. But I am encouraged by the fact that he made so much urine yesterday. I will put of fluid restriction to 1800 mL a day and hopefully with ongoing diuresis there will be improvement in his dyspnea. The question karla will be about his renal function. He got some contrast yesterday but it was not very much, so hopefully, it will not have any impact on his renal function and I would hope that there will be slow gradual improvement. Because his blood pressure is soft, occasionally in the high 100s, I do not believe there is a time yet to give him any vasodilators, which in setting of diastolic heart failure have not been proven of benefit. The focus should be principally on diuresis. Dr. Coronado will manage his pacemaker. JT
--- NOTE | 2018-12-06 09:00 | REP ---
CHEST X-RAY: Sitting AP view. HISTORY: Status post pacemaker implant. COMPARISON STUDY: December 05, 2018. FINDINGS: A multilead pacemaker is seen in the right heart via the left side. Skin greg are seen adjacent to the power plant. There is no evidence of pneumothorax. Moderate cardiac enlargement persists however. There is hazy opacity in the lung bases consistent with bilateral pleural effusions right a little larger than left. There is discoid atelectasis in the left mid lung zone. Electronically Signed by Mauro Avila MD 12/06/2018 09:02 A
[2018-12-06] MEDS: HumaLOG INSULIN (NovoLOG) PER UNIT SC SCH ×4 (09:18→20:47)
[2018-12-06] MEDS: ESCITALOPRAM OXALATE 10 MG TAB (LEXAPRO) PO SCH (09:21)
[2018-12-06] MEDS: TAMSULOSIN 0.4 MG CAP PO SCH (09:21)
[2018-12-06] MEDS: traMADol 50 MG TAB PO SCH ×2 (09:21→20:04)
[2018-12-06] MEDS: AMIODARONE 200 MG TAB (PACERONE) PO SCH (09:21)
[2018-12-06] MEDS: OMEPRAZOLE 20 MG CAP PO SCH (09:22)
[2018-12-06] MEDS: ASCORBIC ACID 250 MG TAB PO SCH ×2 (09:22→20:03)
[2018-12-06] MEDS: PREGABALIN 75 MG CAP(LYRICA) PO SCH ×2 (09:22→20:03)
[2018-12-06] MEDS: buPROPion (WELLBUTRIN SR) 100 MG SR TAB PO SCH (09:23)
[2018-12-06] MEDS: ATORVASTATIN 10 MG TAB PO SCH (09:23)
[2018-12-06] MEDS: VITAMIN D 1,000 INTERNATIONAL UNITS TABLET PO SCH (09:23)
[2018-12-06] MEDS: NYSTATIN 100,000 UNITS/GM TOPICAL PWD 15 GM TOP SCH ×2 (09:23→20:04)
[2018-12-06 12:00] VITALS: BP 127/58
--- NOTE | 2018-12-06 12:55 | CR ---
DATE OF CONSULTATION: 12/05/2018 REQUESTING PHYSICIAN: Dr. Rodo Benavides REASON FOR CONSULTATION: Acute kidney injury (YULIANA) on chronic kidney disease (CKD) stage III and hyperkalemia. HISTORY OF PRESENT ILLNESS: History is obtained from discussion with healthcare provider and also on review of chart. Patient is currently unable to provide any clinical history due to his condition. Jose Mills is a 68-year-old male with a past medical history of CKD stage IIIB, baseline creatinine 1.7, paroxysmal atrial fibrillation on Eliquis anticoagulation, Mobitz type II arteriovenous (AV) block and right bundle branch block, hypertension, coronary artery disease with a history of stent in the past, dyslipidemia, obesity, hypertension, gastroesophageal reflux disease (GERD), neuropathy, and chronic nonsteroidal anti-inflammatory drug (NSAID) use. Patient recently had a stay at [facility] after a fall with a right intertrochanteric femur fracture requiring open reduction and internal fixation. He was subsequently discharged home on 11/04/2018. The patient was readmitted on 12/02/2018 due to weakness and falls with accompanying significant bradycardia. He is status post permanent dual-chamber pacemaker placement this morning. During the course of this admission, he has received significant intravenous (IV) fluid resuscitation and has also been on dobutamine infusion. His renal function has worsened over the course of this admission, now with hyperkalemia and poor urine output, and the patient has become progressively volume overloaded, and nephrology evaluation was subsequently requested. I saw the patient this afternoon in the intensive care unit after he returned from pacemaker placement. PAST MEDICAL HISTORY: CKD, stage IIIB, baseline creatinine around 1.7. Coronary artery disease with stent. Hypertension. Dyslipidemia. Obesity. Atrial fibrillation on Eliquis. Depression. GERD. BPH. History of falls. Neuropathy. Insulin-dependent diabetes. Chronic NSAID use. PAST SURGICAL HISTORY: Open reduction internal fixation of right femur fracture. Cardiac catheterization. Pacemaker placement. ALLERGIES: LATEX, PENICILLIN. HOME MEDICATIONS: Reviewed and include; - amiodarone - metoprolol - magnesium - Naprosyn - Eliquis - Lipitor - bupropion - vitamin C - citalopram - hydralazine - insulin - Prilosec - Lyrica - Flomax - tramadol FAMILY HISTORY: Patient is unable to provide. Per chart review, there is no family history of renal failure. SOCIAL HISTORY: His lives with his granddaughter. He is a . There is no reported smoking, alcohol, or drugs. REVIEW OF SYSTEMS: Unable to obtain secondary to clinical condition. PHYSICAL EXAM: VITAL SIGNS: Temperature 99.1, pulse 73, respiratory rate 22, blood pressure 108/54, saturating 96% on 3 liters nasal cannula. Intake yesterday was 3.3 liters, urine output yesterday was 850 mL, net positive 2.5 liters. Weight in the bed scale today is not recorded. GENERAL: Patient is seen at the bedside in the intensive care unit. He just returned from the pacemaker placement. He is groggy and sedated and does not cooperate with physical exam nor converse or follow commands. His is mildly tachypneic at rest. He is obese with freshly placed dressings on the left chest wall with the left arm in a sling. Neck veins look elevated. Heart sounds are distant. No murmur appreciated. There is mild tachypnea. Diminished breath sounds at the bases bilaterally. The abdomen is soft, nontender. There are bowel sounds. There is induration and edema present in the abdominal flanks. There is significant scrotal edema present. There is 2+ edema present in the peripheries that extends up to the hip, thigh, and dependent area. Neurologic: He is sedated. LABS: Sodium 139, potassium 5.3, bicarbonate 19, BUN 88, creatinine 2.6. Magnesium 2.5. BNP 10,700. Hemoglobin 9.6. IMAGING: Chest x-ray shows opacification and effusion. INPATIENT MEDICATIONS: I have discontinued the normal saline. I have ordered Lasix 40 mg IV times one and then Lasix infusion at 5 mg/h. He is receiving amiodarone 200 mg by mouth daily, Eliquis 2.5 mg by mouth twice a day to start in 3 days, vitamin C 250 mg by mouth twice a day, Lipitor 10 mg by mouth daily, Wellbutrin 100 mg by mouth daily, Lexapro 10 mg by mouth daily, insulin, Prilosec 20 mg by mouth daily, Veltassa 8.5 grams by mouth times one, Lyrica 150 mg by mouth twice a day, Flomax 0.4 mg by mouth daily, tramadol 50 mg by mouth twice a day, vitamin D 1000 units by mouth daily. PROBLEMS: 1. Acute kidney injury (YULIANA) superimposed on chronic kidney disease (CKD) stage IIIB (baseline creatinine around 1.7). He has had worsening renal function over the course of this admission. Admission creatinine was 2.0, likely related to the chronic naproxen use at home; however, his worsening renal function over the past couple of days is probably related to decompensated congestive heart failure and cardiorenal syndrome. I am discontinuing his normal saline. He is grossly volume overloaded, and he is being started on Lasix 40 mg intravenous (IV) times one and then Lasix infusion at 5 mg/h, Hdez catheter for urine output monitoring, and continue daily weights. He should be on oral fluid restriction. 2. Decompensated congestive heart failure. Echocardiogram 09/2018 showed preserved systolic function and impairment of left ventricular diastolic function. He received significant IV fluids on this admission. His daily weights have uptrended. He is grossly volume overloaded. He is requiring increased supplemental oxygen. His blood pressures were borderline soft after pacemaker placement this morning, hence, I have elected to bolus him with Lasix and then start Lasix infusion at 5 mg/h to avoid hemodynamic instability. 3. Hyperkalemia related to renal failure. Hopefully, it should improve with Lasix and diuresis. He also received a dose of Veltassa. He is not on medications that would predispose to hyperkalemia. He should stay off of nonsteroidal anti-inflammatory drugs (NSAIDs) as an outpatient. 4. Bradycardia, status post pacemaker placement this morning. As per cardiology. 5. Nonanion gap metabolic acidosis related to chronic renal failure.
--- NOTE | 2018-12-06 14:38 | IPNPDOC ---
Subjective Date Seen The patient was seen on 12/06/18. Subjective Chief Complaint/HPI Patient seen and examined at the bedside. Reports that his respiratory status is improved compared to yesterday afternoon/evening. He has diuresed a net negative of over 3 L today. His renal function remains stable compared to yesterday, with hopes of further improvement with diuresis. Objective Physical Examination General Exam: Positive: Alert, Cooperative, No Acute Distress ENT Exam: Positive: Atraumatic, Mucous membr. moist/pink Chest Exam: Positive: Diminished Heart Exam: Positive: Rate Normal, Normal S1, Normal S2 Telemetry: Positive: Sinus (ventricular paced sinus rhythm) Abdomen Exam: Positive: Soft; Negative: Tenderness Extremity Exam: Positive: Other (2/3+ pitting edema of the lower extremities extending upwards towards the thighs); Negative: Tenderness Psych Exam: Positive: Oriented x 3 Assessment /Plan Plan/VTE VTE Prophylaxis Ordered?: Yes Plan Acute Kidney Injury Superimposed on CKD Stage IIIB likely 2/2 Above Likely 2/2 Naproxen use at home, and fluid overload following IVF Hydration Nephrology on board and the patient's volume status has improved following IV Lasix Renal function remains at 2.6 this AM--hopefully this will improve with diuresis We will cont to monitor Bradycardia 2/2 Mobitz Type II Second Degree AV Block with 2:1 AV conduction Cardiology on board--s/p permanent dual-chamber pacemaker placement on 12/05 Hyperkalemia 2/2 Above, resolved Hx of CAD s/p PCI in 1980s Cont Statin (Metoprolol on hold 2/2 #2, Not on PRESTON-I/ARB 2/2 CKD) Paroxysmal A-Fib Amiodarone restarted by Cardiology [facility] for AC Functional Debility Weakness s/p recent Right Hip Fracture with repair in September 2018 which was followed by a stay in [facility] on board for functional optimization Diabetes Mellitus Cont insulin regimen as ordered Diabetic neuropathy Continue Lyrica Hypertension Not on any meds at this time due to IV Lasix diuresis BPH Cont Flomax GERD Continue PPI Dyslipidemia Continue Lipitor Anxiety/depression Continue Lexapro, Wellbutrin DVT Prophylaxis On Eliquis Dispo--pending clinical improvement VS, I&O, 24H, Fishbone Vital Signs/I&O Vital Signs Date Time Temp Pulse Resp B/P (MAP) Pulse Ox O2 Delivery O2 Flow Rate FiO2 12/06/18 12:00 97.9 82 14 127/58 (81) 93 1.0 12/01/18 19:31 Room Air I&O- Last 24 Hours up to 6 AM 12/06/18 06:00 Intake Total 1782.5 ml Output Total 4725 ml Balance -2942.5 ml Laboratory Data 24H LABS Laboratory Tests 2 12/05/18 17:41: Bedside Glucose (Misc Panel) 264H 12/05/18 20:45: Bedside Glucose (Misc Panel) 206H 12/06/18 03:50: Nucleated Red Blood Cells % (auto) 0.0, Anion Gap 6L, Glomerular Filtration Rate 25.7L, Blood Urea Nitrogen 83H, Creatinine 2.64H, Sodium Level 142, Potassium Level 4.5, Chloride Level 112H, Carbon Dioxide Level 24, Calcium Level 8.0L, [id number]-Type Natriuretic Peptide [id number] 12/06/18 11:50: Bedside Glucose (Misc Panel) 231H CBC/BMP Laboratory Tests 12/06/18 03:50 Red Blood Count 3.00 L, Mean Corpuscular Volume 97.3 H, Mean Corpuscular Hemoglobin 29.7, Mean Corpuscular Hemoglobin Concent 30.5 L, Red Cell Distribution Width 14.8 H, Calcium Level 8.0 L Microbiology Microbiology 12/03/18 Respiratory Virus Panel (PCR) (PHI) - Final, Complete 12/01/18 Urine Culture - Final, Complete MICHA VERGARA MD Dec 06, 2018 14:38
[2018-12-06 16:00] VITALS: BP 128/64
[2018-12-06] MEDS: FUROSEMIDE injection 250 MG in D5W 225 ML IV SCH (16:33)
[2018-12-06 16:55] LABS: CALCIUM LEVEL 8.2 MG/DL (8.8-10.2); CREATININE FOR GFR 2.48 MG/DL (0.70-1.30); GLOMERULAR FILTRATION RATE 27.6 (>42); POTASSIUM SERUM 4.3 MEQ/L (3.5-5.1)
[2018-12-06 20:00] VITALS: BP 129/60
[2018-12-06] MEDS: LEVEMIR (INSULIN DETEMIR) 1 UNITS/0.01ML SC SCH (20:46)
[2018-12-07] VITALS (7 sets, daily range): BP systolic 100–147; BP diastolic 49–72
[2018-12-07 04:56] LABS: HEMATOCRIT 29.4 % (42.0-52.0); MEAN CORPUSCULAR HGB CONC 30.6 g/dl (32.0-36.5); MEAN CORPUSCULAR VOLUME 94.8 fl (80.0-96.0); PLATELET COUNT, AUTOMATED 115 10^3/uL (150-450); WHITE BLOOD COUNT 5.4 10^3/uL (4.0-10.0)
[2018-12-07 05:18] LABS: CALCIUM LEVEL 7.9 MG/DL (8.8-10.2); CREATININE FOR GFR 2.27 MG/DL (0.70-1.30); GLOMERULAR FILTRATION RATE 30.5 (>42); POTASSIUM SERUM 3.9 MEQ/L (3.5-5.1)
--- NOTE | 2018-12-07 07:20 | IPN ---
DATE: 12/06/2018 SUBJECTIVE: Patient is seen and examined this morning at the bedside in the intensive care unit. He is much more oriented and interactive today as compared to yesterday. He denies shortness of breath at rest. He has been diuresing very nicely on Lasix drip. His supplemental oxygen is being weaned and his renal function remains stable over the past 24 hours. Vital Signs: Temperature 97.7, pulse 80, respiratory rate 16, blood pressure 128/64, saturating 92-93% on 1 liter nasal cannula. Intake yesterday was 1.7 liters, urine output yesterday was 3 liters. Urine output thus far today is 4 liters. Weight on the bed scale today is 129.1 kg. General: Patient is seen lying in bed, awake, alert, oriented and conversational. No acute respiratory distress. Extraocular muscles intact. Neck veins are difficult to assess secondary to body habitus. Lungs show crackles at the bases and diminished breath sounds. There is no tachypnea or conversational dyspnea. Heart sounds are distant. There is a dressing over the left chest wall at the PermaCath placement. The left arm is in a sling. The abdomen is obese. There is pitting edema present in the abdominal flanks. There is pitting edema present up to the hip and dependent area. There is scrotal edema. There is a Hdez catheter with pinkish-tinged urine. Neurologic: He is oriented and interactive. LABS: White count 5.8, hemoglobin 8.9, platelet 92. Sodium 142, potassium 4.3, bicarbonate 23, BUN 83, creatinine 2.4. IMAGING: Chest x-ray 02/05/2019 showed bilateral pleural effusions. INPATIENT MEDICATIONS: The patient is receiving a Lasix drip at 5 mg/h. His remainder of medications are unchanged from prior. PROBLEMS: 1. Acute kidney injury (YULIANA) on chronic kidney disease (CKD) stage III B (based on creatinine around 1.7). YULIANA on this admission is related to chronic nonsteroidal anti-inflammatory drugs (NSAIDs) use at home plus decompensated congestive heart failure/cardiorenal syndrome plus contrast exposure. He is tolerating diuresis very well. Renal function has been fairly plateaued the past 24 hours. He has already made more than 5 liters of urine today and I am going to stop the Lasix drip given that his blood pressures have also improved and we will switch him over to Lasix pushes. Continue with the Hdez catheter for urine output monitoring. Continue daily weights. Continue monitoring of intake, output and fluid restrictions. 2. Decompensated congestive heart failure: Echocardiogram in September showed diastolic dysfunction: We started him on Lasix drip yesterday because of the hypotension he had post pacemaker placement. Today he has already made 5 liters of urine and his blood pressures have improved quite nicely. I am stopping the Lasix drip and we will switch over to Lasix pushes. Continue fluid restriction. His daily weights are down-trending. 3. Bradycardia status post pacemaker: As per cardiology. Please keep the patient off any angiotensin converting enzyme inhibitors (PRESTON) or angiotensin II receptor diana (ARB).
--- NOTE | 2018-12-07 08:08 | IPN ---
DATE: 12/07/2018 Mr. Mills had a relatively good day yesterday He completed a very significant urine output at about 6.5 liters for a balance that was documented as -5 liters and yet his weight was documented actually up since yesterday at 129.5 kg. He feels overall better, though. He is less short of breath. Was able to sleep without BND. Still feels very tired and still gets short of breath minimal activity. He is a little sore about the pacemaker side but otherwise, does not have any angina type of symptoms. VITAL SIGNS: Blood pressure is 37/64, heart rate has been mostly in the 70s and 80s in sinus rhythm with ventricular pacing, afebrile, saturation as above. His jugular venous pulse(JVP) is still high. Lungs reveal and inspiratory crackles both sides. Heart exam regular rhythm with widely splitting second heart sound. Abdomen is obese but soft. I am unable to estimate the size of the liver and spleen. Extremities still have peripheral edema above the knees. Neurologically, there appears to be generalized weakness but otherwise intact. TESTS AND LABORATORY DATA: Hemoglobin 9.0, hematocrit 29, platelet count 115,000. Basic metabolic panel: Sodium 143, potassium 3.9, BUN 83, creatinine 2.27 for a calculated GFR of 30.5 and glucose 201. Chest x-ray yesterday that was PA and lateral revealed appropriately positioned. No evidence for pneumothorax and evidence for congestive heart failure with pleural effusions. ASSESSMENT/PLAN: Mr. Mills is a 68-year-old man who received a pacemaker yesterday for sick sinus syndrome. When I saw him yesterday, he was grossly volume overloaded and remains so still. He was receiving IV furosemide in an infusion with excellent diuretic response. Today, it was changed to 40 mg every [address] Santos. I will leave the dose unchanged even though I am a little suspicious that he might need a slightly higher dosing than that. We can always up titrate it depending on this diuretic response. His blood pressure remains relatively low even though it is climbing up. But yet, I am not going to introduce any vasodilators. We will see how his clinical condition evolves over time. I do foresee that we will be putting him on probably carvedilol to reduce the changes of a reactive ventricular rate and provide vasodilatory beta diana. Otherwise, the principle intervention remains diuresis. I do foresee that it will take several more days before he will become euvolemic. JT
[2018-12-07] MEDS: ASCORBIC ACID 250 MG TAB PO SCH ×2 (08:43→21:18)
[2018-12-07] MEDS: VITAMIN D 1,000 INTERNATIONAL UNITS TABLET PO SCH (08:43)
[2018-12-07] MEDS: FUROSEMIDE 40 MG/4 ML VIAL (J1940) IV SCH ×2 (08:43→17:38)
[2018-12-07] MEDS: OMEPRAZOLE 20 MG CAP PO SCH (08:43)
[2018-12-07] MEDS: TAMSULOSIN 0.4 MG CAP PO SCH (08:43)
[2018-12-07] MEDS: HumaLOG INSULIN (NovoLOG) PER UNIT SC SCH ×4 (08:43→21:00)
[2018-12-07] MEDS: ESCITALOPRAM OXALATE 10 MG TAB (LEXAPRO) PO SCH (08:43)
[2018-12-07] MEDS: PREGABALIN 75 MG CAP(LYRICA) PO SCH ×2 (08:43→21:17)
[2018-12-07] MEDS: AMIODARONE 200 MG TAB (PACERONE) PO SCH (08:43)
[2018-12-07] MEDS: buPROPion (WELLBUTRIN SR) 100 MG SR TAB PO SCH (08:43)
[2018-12-07] MEDS: traMADol 50 MG TAB PO SCH ×2 (08:44→21:19)
[2018-12-07] MEDS: ATORVASTATIN 10 MG TAB PO SCH (08:44)
[2018-12-07] MEDS: NYSTATIN 100,000 UNITS/GM TOPICAL PWD 15 GM TOP SCH ×2 (08:50→21:00)
[2018-12-07 10:29] LABS: MAGNESIUM LEVEL 2.1 MG/DL (1.8-2.4)
--- NOTE | 2018-12-07 14:08 | IPNPDOC ---
Subjective Date Seen The patient was seen on 12/07/18. Subjective Chief Complaint/HPI Patient seen and examined at the bedside. He has had a very good response to diuretic therapy as he diuresed a net negative of 5 L yesterday, and he is already at a net negative of 2 L today. He does remain quite volume overloaded and he has been transitioned to IV Lasix 40 mg every 8 hours. The patient states that his respiratory status is improved, but he remains quite weak when working with physical therapy. He will likely require rehabilitation. We will continue to monitor the patient's volume status. Objective Physical Examination General Exam: Positive: Alert, Cooperative, No Acute Distress ENT Exam: Positive: Atraumatic, Mucous membr. moist/pink Chest Exam: Positive: Diminished Heart Exam: Positive: Rate Normal, Normal S1, Normal S2 Telemetry: Positive: Sinus (ventricular paced sinus rhythm) Abdomen Exam: Positive: Soft; Negative: Tenderness Extremity Exam: Positive: Other (2/3+ pitting edema of the lower extremities extending upwards towards the thighs); Negative: Tenderness Psych Exam: Positive: Oriented x 3 Assessment /Plan Plan/VTE VTE Prophylaxis Ordered?: Yes Plan Acute Kidney Injury Superimposed on CKD Stage IIIB likely 2/2 Above Likely 2/2 Naproxen use at home, and fluid overload following IVF Hydration Nephrology on board and the patient's volume status has improved following IV Lasix, but he still remains fluid overloaded. We will cont IV diuretic therapy as per Nephro Renal function improving 2.6-->2.27 this AM We will cont to monitor Bradycardia 2/2 Mobitz Type II Second Degree AV Block with 2:1 AV conduction Cardiology on board--s/p permanent dual-chamber pacemaker placement on 12/05 Hyperkalemia 2/2 Above, resolved Hx of CAD s/p PCI in 1980s Cont Statin (Beta Qamar on hold 2/2 #2, Not on PRESTON-I/ARB 2/2 CKD) Paroxysmal A-Fib Amiodarone restarted by Cardiology Eliquis for AC Functional Debility Weakness s/p recent Right Hip Fracture with repair in September 2018 which was followed by a stay in [facility] on board for functional optimization Diabetes Mellitus Cont insulin regimen as ordered Diabetic neuropathy Continue Lyrica Hypertension Not on any meds at this time due to IV Lasix diuresis BPH Cont Flomax GERD Continue PPI Dyslipidemia Continue Lipitor Anxiety/depression Continue Lexapro, Wellbutrin DVT Prophylaxis On Eliquis Dispo--pending clinical improvement VS, I&O, 24H, Fishbone Vital Signs/I&O Vital Signs Date Time Temp Pulse Resp B/P (MAP) Pulse Ox O2 Delivery O2 Flow Rate FiO2 12/07/18 12:00 2.0 12/07/18 12:00 97.2 78 13 100/49 (66) 94 12/01/18 19:31 Room Air I&O- Last 24 Hours up to 6 AM 12/07/18 06:00 Intake Total 1520 ml Output Total 5725 ml Balance -4205 ml Laboratory Data 24H LABS Laboratory Tests 2 12/06/18 16:16: Anion Gap 8, Glomerular Filtration Rate 27.6L, Blood Urea Nitrogen 83H, Creatinine 2.48H, Sodium Level 142, Potassium Level 4.3, Chloride Level 111H, Carbon Dioxide Level 23, Calcium Level 8.2L 12/06/18 17:41: Bedside Glucose (Misc Panel) 242H 12/06/18 20:43: Bedside Glucose (Misc Panel) 254H 12/07/18 04:20: Anion Gap 6L, Glomerular Filtration Rate 30.5L, Blood Urea Nitrogen 83H, Creatinine 2.27H, Sodium Level 143, Potassium Level 3.9, Chloride Level 111H, Carbon Dioxide Level 26, Calcium Level 7.9L, Nucleated Red Blood Cells % (auto) 0.0, Magnesium Level 2.1 12/07/18 12:15: Bedside Glucose (Misc Panel) 221H CBC/BMP Laboratory Tests 12/06/18 16:16 Calcium Level 8.2 L 12/07/18 04:20 Calcium Level 7.9 L, Red Blood Count 3.10 L, Mean Corpuscular Volume 94.8, Mean Corpuscular Hemoglobin 29.0, Mean Corpuscular Hemoglobin Concent 30.6 L, Red Cell Distribution Width 14.6 H Microbiology Microbiology 12/03/18 Respiratory Virus Panel (PCR) (PHI) - Final, Complete 12/01/18 Urine Culture - Final, Complete MICHA VERGARA MD Dec 07, 2018 14:08
--- NOTE | 2018-12-07 21:13 | IPN ---
DATE: 12/07/2018 SUBJECTIVE: Patient seen and examined this morning in the intensive care unit. He has been making excellent amount of urine, more than 6 liters in the past 24 hours. I stopped his Lasix drip yesterday evening and switched him over to Lasix pushes. His blood pressures have also improved as compared to prior. His supplemental oxygen requirements are decreasing. He is feeling less short of breath with the study. He was able to get out of bed to the chair. He is too weak to move around much on his own. VITAL SIGNS: Temperature 97.2, pulse 78, respiratory rate 13, blood pressure 100/49, saturating 94% on 2 liters nasal cannula. Intake yesterday was 1500. Urine output yesterday was 6.5 liters, negative 5 liters. Weight in the bed scale today is 129.5 kg. GENERAL: Patient is seen lying in bed in the intensive care unit, elderly male, obese in no acute respiratory distress. Extraocular muscles are intact. Tongue is moist. Jugular venous pulse is elevated. LUNGS: Sounds reveal crackles at both bases. There is no tachypnea or accessory muscle use. HEART: Sounds are regular. There is a dressing over the pacemaker site. Heart sounds are distant. I cannot appreciate a murmur. ABDOMEN: Obese and soft. There is pitting edema present in the abdominal flanks. EXTREMITIES: Have edema that extends all the way to the hip and dependent areas. There is scrotal edema. There is a Hdez catheter with some pinkish-tinged urine, which is clearing up as compared to yesterday. NEUROLOGIC: He is at his baseline mentation. Cooperative with physical exam and interactive. LABORATORY DATA: White count 5.4, hemoglobin 9.0, platelets 115. Sodium 143, potassium 3.9, BUN 83, creatinine 2.2, magnesium 2.1. INPATIENT MEDICATIONS: I discontinued the Lasix drip yesterday evening and switched him over to Lasix 40 mg intravenous (IV) every 8 hours. There is no other change in his medications. PROBLEMS: 1. Acute kidney injury (YULIANA) on chronic kidney disease (CKD), stage IIIB. Baseline creatinine around 1.7. YULIANA on this admission related to nonsteroidal anti-inflammatory drugs (NSAIDs) use at home plus decompensated congestive heart failure/cardiorenal syndrome plus contrast exposure. Renal function has improved over the past 48 hours, and he has tolerated diuresis very well with excellent urine output. He is not suitable for any angiotensin-converting enzyme (PRESTON) nor angiotensin receptor diana (ARB), and please do avoid too-tight blood pressure control while this patient is being diuresed, as that could worsen his renal failure. 2. Decompensated congestive heart failure, markedly volume overloaded. Echo in September showed diastolic dysfunction. His Lasix drip was discontinued last evening and switched over to Lasix pushes, as his blood pressure did improve. Continue Lasix 40 mg IV every 8 hours. Continue fluid restriction. Potassium and magnesium are both checked given significant urine output and are acceptable. 3. Anemia, normocytic. Probably some dilutional effect. Hemoglobin is suboptimal but stable at 9. I will get iron studies.
[2018-12-07] MEDS: LEVEMIR (INSULIN DETEMIR) 1 UNITS/0.01ML SC SCH (21:20)
[2018-12-08] MEDS: FUROSEMIDE 40 MG/4 ML VIAL (J1940) IV SCH ×3 (00:22→17:58)
[2018-12-08 06:00] VITALS: BP 148/74
[2018-12-08 06:04] LABS: HEMATOCRIT 31.1 % (42.0-52.0); HEMOGLOBIN 9.6 g/dl (13.5-17.5); MEAN CORPUSCULAR HEMOGLOBIN 29.2 pg (27.0-33.0); MEAN CORPUSCULAR HGB CONC 30.9 g/dl (32.0-36.5); MEAN CORPUSCULAR VOLUME 94.5 fl (80.0-96.0); PLATELET COUNT, AUTOMATED 137 10^3/uL (150-450); RED BLOOD COUNT 3.29 10^6/uL (4.30-6.10); WHITE BLOOD COUNT 5.6 10^3/uL (4.0-10.0)
[2018-12-08 06:28] LABS: CREATININE FOR GFR 1.93 MG/DL (0.70-1.30); GLOMERULAR FILTRATION RATE 36.8 (>42); POTASSIUM SERUM 3.6 MEQ/L (3.5-5.1)
--- NOTE | 2018-12-08 08:11 | IPN ---
DATE OF SERVICE: 12/08/2018 Mr. Mills was moved from the intensive care unit (ICU) to a monitored bed yesterday. His condition continues to slowly improve. He tells me that his dyspnea feels much better. He did not have any paroxysmal nocturnal dyspnea (PND) last night. He still gets short of breath with minimal activity though. He also complains about his legs feeling heavy, but denies any chest pain and any pain in the pacemaker incision site. Vital signs this morning, blood pressure 148/72. Heart rate has been in the 70s. He is afebrile. Saturation 90% on 2 liters of oxygen. Fluid balance yesterday was documented about negative 4 liters. His weight has not been documented this morning as yet. He is alert and oriented. His jugular venous pulse (JVP) is still high. Lungs reveal somewhat diminished breath sounds over both bases. I do not appreciate any crackles or wheezing. Heart exam revealed very muffled heart sounds related to his size. Abdomen is distended, but soft. There is still peripheral edema about 1+. Neurologically intact. Laboratories with potassium 3.6, BUN 69, creatinine 1.9, glucose 211, hemoglobin 9.6, and hematocrit 31. ASSESSMENT/PLAN: Mr. Mills is a 68-year-old man who has a history of paroxysmal atrial fibrillation who has been chronically on amiodarone and presented with congestive heart failure. As a complicating factor, he was quite bradycardic and eventually underwent placement of dual chamber pacemaker at this point three days ago. He is back on anticoagulation. As far as the heart failure is concerned, he continues to be markedly volume overloaded even though good progress is being made in this regard. He has diastolic congestive heart failure and consequently besides diuretics there have been no additional medications proven to be of benefit. His blood pressure started to elevate slightly, but I am still going to wait one more day before giving him any vasodilators. I do foresee though that he will be good candidate probably for carvedilol which has good vasodilator properties and simultaneously would limit the risk of tachycardia should he relapse in atrial fibrillation. From my perspective, he is making decent progress and I am hoping that his rehab will advance as well so we will ultimately get him back home.
[2018-12-08] MEDS: ASCORBIC ACID 250 MG TAB PO SCH ×2 (09:04→21:18)
[2018-12-08] MEDS: PREGABALIN 75 MG CAP(LYRICA) PO SCH ×2 (09:04→21:18)
[2018-12-08] MEDS: buPROPion (WELLBUTRIN SR) 100 MG SR TAB PO SCH (09:05)
[2018-12-08] MEDS: AMIODARONE 200 MG TAB (PACERONE) PO SCH (09:05)
[2018-12-08] MEDS: APIXABAN 2.5 MG TAB (ELIQUIS) PO SCH ×2 (09:05→21:18)
[2018-12-08] MEDS: TAMSULOSIN 0.4 MG CAP PO SCH (09:05)
[2018-12-08] MEDS: OMEPRAZOLE 20 MG CAP PO SCH (09:05)
[2018-12-08] MEDS: ATORVASTATIN 10 MG TAB PO SCH (09:05)
[2018-12-08] MEDS: VITAMIN D 1,000 INTERNATIONAL UNITS TABLET PO SCH (09:06)
[2018-12-08] MEDS: ESCITALOPRAM OXALATE 10 MG TAB (LEXAPRO) PO SCH (09:06)
[2018-12-08] MEDS: HumaLOG INSULIN (NovoLOG) PER UNIT SC SCH ×4 (09:07→21:00)
[2018-12-08] MEDS: NYSTATIN 100,000 UNITS/GM TOPICAL PWD 15 GM TOP SCH ×2 (09:07→21:00)
[2018-12-08] MEDS: traMADol 50 MG TAB PO SCH ×2 (09:07→21:19)
[2018-12-08] MEDS ORDERED: POTASSIUM CHLORIDE 10 MEQ SR TABLET PO ONE (10:00)
--- NOTE | 2018-12-08 11:59 | IPNPDOC ---
Subjective Date Seen The patient was seen on 12/08/18. Subjective Chief Complaint/HPI Patient is seen and examined at bedside. He reports that his respiratory status continues to improve, and the swelling in his lower extremities also is slowly improving. His functional status remains weak, but the hope is he will continue to progress with improved volume optimization. The patient does not offer any other acute complaints at this time. Objective Physical Examination General Exam: Positive: Alert, Cooperative, No Acute Distress ENT Exam: Positive: Atraumatic, Mucous membr. moist/pink Chest Exam: Positive: Diminished Heart Exam: Positive: Rate Normal, Normal S1, Normal S2 Telemetry: Positive: Sinus (ventricular paced sinus rhythm) Abdomen Exam: Positive: Soft; Negative: Tenderness Extremity Exam: Positive: Other (2/3+ pitting edema of the lower extremities extending upwards towards the thighs); Negative: Tenderness Psych Exam: Positive: Oriented x 3 Assessment /Plan Plan/VTE VTE Prophylaxis Ordered?: Yes Plan Acute Kidney Injury Superimposed on CKD Stage IIIB likely 2/2 Above Likely 2/2 Naproxen use at home, and decompensated CHF Nephrology on board and the patient's volume status has improved following IV Lasix, but he still remains fluid overloaded. 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 Cardiology on board--s/p permanent dual-chamber pacemaker placement on 12/05 Hyperkalemia 2/2 Above, resolved Hx of CAD s/p PCI in 1980s Cont Statin (Beta Qamar on hold 2/2 #2, Not on PRESTON-I/ARB 2/2 CKD) Paroxysmal A-Fib Amiodarone restarted by Cardiology [facility] for AC Functional Debility Weakness s/p recent Right Hip Fracture with repair in September 2018 which was followed by a stay in [facility] PT on board for functional optimization Diabetes Mellitus Cont insulin regimen as ordered Diabetic neuropathy Continue Lyrica Hypertension Not on any meds at this time due to IV Lasix diuresis BPH Cont Flomax GERD Continue PPI Dyslipidemia Continue Lipitor Anxiety/depression Continue Lexapro, Wellbutrin DVT Prophylaxis On Eliquis Dispo--pending clinical improvement, PT on board for functional optimization. VS, I&O, 24H, Fishbone Vital Signs/I&O Vital Signs Date Time Temp Pulse Resp B/P (MAP) Pulse Ox O2 Delivery O2 Flow Rate FiO2 12/08/18 09:07 18 12/08/18 06:00 97.4 79 148/74 (98) 90 2.0 I&O- Last 24 Hours up to 6 AM 12/08/18 06:00 Intake Total 1370 ml Output Total 5830 ml Balance -4460 ml Laboratory Data 24H LABS Laboratory Tests 2 12/07/18 12:15: Bedside Glucose (Misc Panel) 221H 12/07/18 17:32: Bedside Glucose (Misc Panel) 231H 12/07/18 20:46: Bedside Glucose (Misc Panel) 244H 12/08/18 05:28: Nucleated Red Blood Cells % (auto) 0.0, Anion Gap 6L, Glomerular Filtration Rate 36.8L, Blood Urea Nitrogen 69H, Creatinine 1.93H, Sodium Level 145, Potassium Level 3.6, Chloride Level 108H, Carbon Dioxide Level 31, Calcium Level 8.0L 12/08/18 11:33: Bedside Glucose (Misc Panel) 184H CBC/BMP Laboratory Tests 12/08/18 05:28 Red Blood Count 3.29 L, Mean Corpuscular Volume 94.5, Mean Corpuscular Hemoglobin 29.2, Mean Corpuscular Hemoglobin Concent 30.9 L, Red Cell Distribution Width 14.4, Calcium Level 8.0 L Microbiology Microbiology 12/03/18 Respiratory Virus Panel (PCR) (PHI) - Final, Complete 12/01/18 Urine Culture - Final, Complete MICHA VERGARA MD Dec 08, 2018 11:59
[2018-12-08 14:00] VITALS: BP 142/75
[2018-12-08] MEDS: LEVEMIR (INSULIN DETEMIR) 1 UNITS/0.01ML SC SCH (21:18)
[2018-12-08 22:00] VITALS: BP 132/63
[2018-12-09] VITALS (11 sets, daily range): BP systolic 111–153; BP diastolic 60–83
[2018-12-09] MEDS: FUROSEMIDE 40 MG/4 ML VIAL (J1940) IV SCH ×3 (01:54→16:56)
[2018-12-09 06:11] LABS: HEMATOCRIT 31.4 % (42.0-52.0); HEMOGLOBIN 9.7 g/dl (13.5-17.5); MEAN CORPUSCULAR HEMOGLOBIN 28.6 pg (27.0-33.0); MEAN CORPUSCULAR HGB CONC 30.9 g/dl (32.0-36.5); MEAN CORPUSCULAR VOLUME 92.6 fl (80.0-96.0); PLATELET COUNT, AUTOMATED 158 10^3/uL (150-450); RED BLOOD COUNT 3.39 10^6/uL (4.30-6.10); WHITE BLOOD COUNT 5.8 10^3/uL (4.0-10.0)
[2018-12-09 06:48] LABS: CALCIUM LEVEL 8.6 MG/DL (8.8-10.2); CREATININE FOR GFR 1.83 MG/DL (0.70-1.30); GLOMERULAR FILTRATION RATE 39.2 (>42); PERCENT SATURATION 12.1 % (19.7-50.0); POTASSIUM SERUM 3.7 MEQ/L (3.5-5.1)
--- NOTE | 2018-12-09 08:44 | IPN ---
DATE: 12/09/2018 Mr. Mills had another good day yesterday. He accomplished very significant diuresis. Over 6 liters was documented. Weight is down to 121 kg. He feels much better as far as the dyspnea is concerned. If I can trust our scales, he lost about 12 kg since 5 days ago. He has no specific complaints today. He was able to ambulate a little bit with physical therapy, but so far is far from being independent. Vital signs this morning, blood pressure 130/68, heart rate has been in 70s. He is almost 100% sinus rhythm with ventricular pacing. He is afebrile. Saturation 96% on 2 liters of oxygen. He jugular venous pulse (JVP) is difficult to dam worker with his body habitus but does not look elevated to me any longer. Lungs still have some occasional crackles but are much clearer. The air movement is fair though. Heart exam reveals very muffled heart sound due to his obesity. There is paradoxical splitting second heart sound. Abdomen is very obese but soft. No obvious shifting dullness. He still has about 1+ peripheral edema much improved from before. Neurologically, he is alert and oriented and appropriate. His speech is intact, and he moves all four extremities. Laboratory goetz, sodium 143, potassium 3.7, BUN 66, creatinine 1.89, and glucose 216. CBC: Hemoglobin 9.7, hematocrit 31, and platelet count 158,000. ASSESSMENT AND PLAN: Mr. Mills Is a 68-year-old man, who has chronic diastolic heart failure and chronic renal insufficiency. He came with syncopal event and was found to have evidence for intermittent second degree, type 2, atrioventricular (AV) block that prompted placement of a pacemaker. He continues to be volume overloaded and is being diuresed. He lost about 12 kg of weight, but I think that in my opinion at least 5 kg of excess fluids needs to be eliminated. Consequently, I think it is appropriate to continue current dose of diuretics. Because he has preserved left ventricular systolic function, I am still not going to add any additional medications. His blood pressure is actually reasonably well-controlled, but if he should become hypertensive, then will reintroduce carvedilol. He is chronically anticoagulated with Eliquis. I do not have any additional recommendations to his management.
[2018-12-09] MEDS: PREGABALIN 75 MG CAP(LYRICA) PO SCH ×2 (08:53→21:47)
[2018-12-09] MEDS: VITAMIN D 1,000 INTERNATIONAL UNITS TABLET PO SCH (08:53)
[2018-12-09] MEDS: buPROPion (WELLBUTRIN SR) 100 MG SR TAB PO SCH (08:53)
[2018-12-09] MEDS: ESCITALOPRAM OXALATE 10 MG TAB (LEXAPRO) PO SCH (08:54)
[2018-12-09] MEDS: ATORVASTATIN 10 MG TAB PO SCH (08:54)
[2018-12-09] MEDS: APIXABAN 2.5 MG TAB (ELIQUIS) PO SCH ×2 (08:54→21:46)
[2018-12-09] MEDS: TAMSULOSIN 0.4 MG CAP PO SCH (08:54)
[2018-12-09] MEDS: AMIODARONE 200 MG TAB (PACERONE) PO SCH (08:54)
[2018-12-09] MEDS: ASCORBIC ACID 250 MG TAB PO SCH ×2 (08:54→21:46)
[2018-12-09] MEDS: OMEPRAZOLE 20 MG CAP PO SCH (08:54)
[2018-12-09] MEDS: HumaLOG INSULIN (NovoLOG) PER UNIT SC SCH ×4 (08:55→21:48)
[2018-12-09] MEDS: traMADol 50 MG TAB PO SCH ×2 (08:56→21:47)
[2018-12-09] MEDS: NYSTATIN 100,000 UNITS/GM TOPICAL PWD 15 GM TOP SCH ×2 (08:56→21:48)
[2018-12-09] MEDS ORDERED: IRON SUCROSE 100MG 5ML VIAL (J1756 PER 1MG) IV ONE (10:30)
--- NOTE | 2018-12-09 10:32 | IPN ---
DATE OF SERVICE: 12/08/2018 Patient seen and examined at bedside. Denies any overnight events. Still on 2 liter nasal cannula. Respiratory status continues to improve and daily weights are downtrending. He remains very weak and easily fatigued. VITAL SIGNS: Temperature 97.4, pulse 79, respiratory rate 18, blood pressure 148/74, saturating 90-96% on 2 liter nasal cannula. Intake yesterday 1 liter. Urine output yesterday 5 liters. Net negative 4 liters. Weight in the bed scale today 126 kg. GENERAL: Patient is seen lying in bed, elderly male, morbidly obese, no acute distress. Extraocular muscles are intact. Tongue is moist. Jugular veins are elevated. CARDIAC: S1, S2, regular rate. Dressing on the left side where the PermaCath was placed. LUNGS: Crackles at both bases. No tachypnea or accessory muscle use. Comfortable on nasal cannula. ABDOMEN: Obese. Nontender. Positive bowel sounds. Pitting edema present in the abdominal flanks. EXTREMITIES: 2+ pitting edema that comes up to the dependent areas, but which is improving from prior. GENITOURINARY: Scrotal edema and indwelling Hdez catheter with clear yellow urine. NEUROLOGIC: Oriented times three. No focal deficit, but generally weak. White count 5.6, hemoglobin 9.6, platelets 137. Sodium 145, potassium 3.6, BUN 69, creatinine 1.9. INPATIENT MEDICATIONS: I gave him a dose of potassium chloride oral 40 mEq times one. His remainder of medications are unchanged from prior. PROBLEMS: 1. Acute kidney injury (YULIANA) superimposed on chronic kidney disease (CKD), stage III B. Baseline creatinine is around 1.7. Renal function has improved nicely over the past few days and is almost back towards his usual baseline. His blood urea nitrogen has also improved. He is not suitable for any angiotensin-converting enzyme (PRESTON) or angiotensin receptor diana (ARB). He is tolerating the diuretics very well. I would keep the Hdez in for another day or two. 2. Decompensated congestive diastolic congestive heart failure. Still volume overloaded. Continue with Lasix 40 mg IV every 8 hours. He is having very satisfactory diuresis. Daily weights are downtrending and daily net negative fluid balance. Renal function is improving. Continue oral fluid restriction. He was given potassium supplementation today as his potassium levels have dropped significantly over the past couple of days. Continue Hdez catheter for another day or two. 3. Normocytic anemia. Probably some hemodilution effect. Hemoglobin is improving the past couple of days with just diuresis, and iron studies are pending.
[2018-12-09] MEDS ORDERED: IRON SUCROSE 25 MG in NS 50 ML IV ONE (12:00)
[2018-12-09] MEDS: aMILoride 5 MG TAB PO SCH (12:18)
[2018-12-09] MEDS ORDERED: IRON SUCROSE 275 MG in NS 250 ML IV ONE (13:00)
[2018-12-09] MEDS: LEVEMIR (INSULIN DETEMIR) 1 UNITS/0.01ML SC SCH (21:46)
--- NOTE | 2018-12-09 21:53 | IPNPDOC ---
Subjective Date Seen The patient was seen on 12/09/18. Subjective Chief Complaint/HPI SOB is improving, he is able to mobilize more. His leg swelling is slowly coming down. No fever or chills, no chest pain. No abdominal pain, nausea or vomiting. Objective Physical Examination General Exam: Positive: Alert, Cooperative, No Acute Distress ENT Exam: Positive: Atraumatic, Mucous membr. moist/pink Chest Exam: Positive: Diminished Heart Exam: Positive: Rate Normal, Normal S1, Normal S2 Telemetry: Positive: Sinus (ventricular paced sinus rhythm) Abdomen Exam: Positive: Soft; Negative: Tenderness Extremity Exam: Positive: Other (2/3+ pitting edema of the lower extremities extending upwards towards the thighs); Negative: Tenderness Psych Exam: Positive: Oriented x 3 Assessment /Plan Assessment This is a 68-year-old gentleman with past medical history of diabetes coronary artery disease with history of stents, hypertension, hyperlipidemia, paroxysmal atrial fibrillation on Eliquis, depression, gastroesophageal reflux disease (GERD), benign prostatic hyperplasia (BPH) and recent history of fall in September 2018 requiring open reduction and internal fixation (ORIF) of a right intertrochanteric (IT) femur fracture on September 30, 2018 with subsequent admission to acute rehabilitation here at [facility] discharged on 11/04/2018 who presents status post a fall at home. He was noted to be bradycardic in the ED with Heart rate in the 30s. He was also noted to have YULIANA on CKD. During the course of hospitalization patient had fluid resuscitation on the back ground of bradycardia and had gone into decompensated CHF. Decompensated Diastolic CHF with preserved LV systolic function. having good diuresis weight coming down nicely continue iv lasix. 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 We will cont IV diuretic therapy as per Nephro, he has had a very good response to diuretic therapy Renal function improving now close to baseline (Baseline ~1.7) We will cont to monitor Hyperkalemia 2/2 Above, resolved Hx of CAD s/p PCI in Cont Statin (Beta Qamar on hold 2/2 #2, Not on PRESTON-I/ARB 2/2 CKD) Paroxysmal A-Fib Amiodarone restarted by Cardiology [facility] for AC Functional Debility Weakness s/p recent Right Hip Fracture with repair in September 2018 which was followed by a stay in [facility] PT on board for functional optimization Diabetes Mellitus Cont insulin regimen as ordered Diabetic neuropathy Continue Lyrica Hypertension Not on any meds at this time due to IV Lasix diuresis BPH Cont Flomax GERD Continue PPI Dyslipidemia Continue Lipitor Anxiety/depression Continue Lexapro, Wellbutrin Anemia of chronic disease with iron deficiency getting venofer. DVT Prophylaxis On Eliis Dispo--pending clinical improvement, PT on board for functional optimization. Plan/VTE VTE Prophylaxis Ordered?: Yes VS, I&O, 24H, Fishbone Vital Signs/I&O Vital Signs Date Time Temp Pulse Resp B/P (MAP) Pulse Ox O2 Delivery O2 Flow Rate FiO2 12/09/18 18:45 97.5 80 18 143/80 (101) 96 1.0 I&O- Last 24 Hours up to 6 AM 12/09/18 06:00 Intake Total 536 ml Output Total 6300 ml Balance -5764 ml Laboratory Data 24H LABS Laboratory Tests 2 12/09/18 05:25: Nucleated Red Blood Cells % (auto) 0.0, Anion Gap 6L, Glomerular Filtration Rate 39.2L, Blood Urea Nitrogen 66H, Creatinine 1.83H, Sodium Level 143, Potassium Level 3.7, Chloride Level 105, Carbon Dioxide Level 32, Calcium Level 8.6L, Iron Level 27L, Total Iron Binding Capacity 223L, Transferrin % Saturation 12.1L, Ferritin 130 12/09/18 11:41: Bedside Glucose (Misc Panel) 212H 12/09/18 16:35: Bedside Glucose (Misc Panel) 209H 12/09/18 21:06: Bedside Glucose (Misc Panel) 278H CBC/BMP Laboratory Tests 12/09/18 05:25 Red Blood Count 3.39 L, Mean Corpuscular Volume 92.6, Mean Corpuscular Hemoglobin 28.6, Mean Corpuscular Hemoglobin Concent 30.9 L, Red Cell Distribution Width 14.5, Calcium Level 8.6 L Microbiology Microbiology 12/03/18 Respiratory Virus Panel (PCR) (PHI) - Final, Complete 12/01/18 Urine Culture - Final, Complete BELLA LEWIS MD Dec 09, 2018 21:53
[2018-12-10] MEDS: FUROSEMIDE 40 MG/4 ML VIAL (J1940) IV SCH ×2 (00:20→08:32)
[2018-12-10 06:00] VITALS: BP 131/75
[2018-12-10 06:00] LABS: HEMATOCRIT 32.4 % (42.0-52.0); HEMOGLOBIN 9.8 g/dl (13.5-17.5); MEAN CORPUSCULAR HEMOGLOBIN 28.8 pg (27.0-33.0); MEAN CORPUSCULAR HGB CONC 30.2 g/dl (32.0-36.5); MEAN CORPUSCULAR VOLUME 95.3 fl (80.0-96.0); PLATELET COUNT, AUTOMATED 160 10^3/uL (150-450); WHITE BLOOD COUNT 5.3 10^3/uL (4.0-10.0)
[2018-12-10 06:24] LABS: CALCIUM LEVEL 8.6 MG/DL (8.8-10.2); CREATININE FOR GFR 1.74 MG/DL (0.70-1.30); GLOMERULAR FILTRATION RATE 41.5 (>42); MAGNESIUM LEVEL 1.8 MG/DL (1.8-2.4)
[2018-12-10] MEDS: VITAMIN D 1,000 INTERNATIONAL UNITS TABLET PO SCH (08:32)
[2018-12-10] MEDS: aMILoride 5 MG TAB PO SCH (08:32)
[2018-12-10] MEDS: ASCORBIC ACID 250 MG TAB PO SCH (08:32)
[2018-12-10] MEDS: PREGABALIN 75 MG CAP(LYRICA) PO SCH (08:34)
[2018-12-10] MEDS: OMEPRAZOLE 20 MG CAP PO SCH (08:35)
[2018-12-10] MEDS: traMADol 50 MG TAB PO SCH (08:35)
[2018-12-10] MEDS: ESCITALOPRAM OXALATE 10 MG TAB (LEXAPRO) PO SCH (08:36)
[2018-12-10] MEDS: AMIODARONE 200 MG TAB (PACERONE) PO SCH (08:36)
[2018-12-10] MEDS: TAMSULOSIN 0.4 MG CAP PO SCH (08:36)
[2018-12-10] MEDS: buPROPion (WELLBUTRIN SR) 100 MG SR TAB PO SCH (08:36)
[2018-12-10] MEDS: ATORVASTATIN 10 MG TAB PO SCH (08:36)
[2018-12-10] MEDS: APIXABAN 2.5 MG TAB (ELIQUIS) PO SCH (08:36)
--- NOTE | 2018-12-10 08:36 | IPN ---
DATE OF SERVICE: 12/09/2018 SUBJECTIVE: The patient seen and examined this morning sitting out of bed to the chair. Denies any complaints. Continues to diurese satisfactorily and his supplemental oxygen is being weaned and his Hdez catheter is being removed today. He has not really been moving around much. VITAL SIGNS: Temperature 97.4, pulse 80, respiratory rate 18, blood pressure 146/74, saturating 94% on 1 liter nasal cannula. Intake yesterday was 830. Urine output yesterday was 6.3 liters. Weight in the bed scale today 121.2 kg. Net negative 5.5 liters. GENERAL: Patient is seen sitting in the chair. Elderly male, morbidly obese, no acute distress. Extraocular muscles are intact. Tongue is moist. His jugular veins are not elevated while he is sitting upright. CARDIAC: S1, S2, regular rate. Distant heart sounds. LUNGS: Crackles at both bases have significantly improved. ABDOMEN: Obese. Nontender. There are bowel sounds. His pitting edema in the abdominal flanks is also reduced. EXTREMITIES: About 1+ edema now that comes up to the thighs, but which is improving from prior. GENITOURINARY: Scrotal edema with indwelling Hdez catheter. NEUROLOGIC: No focal deficit, but generally weak. Oriented times three. LABS: White count 5.8, hemoglobin 9.7, platelets 158. Sodium 143, potassium 3.7, bicarbonate 32, BUN 66, creatinine 1.8. Transferrin saturation 12%. INPATIENT MEDICATIONS: I started the patient on amiloride 5 mg by mouth daily and he is receiving Venofer 300 mg IV infusion times one. His remainder of medications are unchanged from prior. PROBLEMS: 1. Acute kidney injury (YULIANA) superimposed on chronic kidney disease (CKD), stage III B. Baseline creatinine is around 1.7. Renal function has improved nicely and is pretty much back to his usual baseline. He is not suitable for PRESTON or ARB. He is tolerating the diuretic dose very well. His Hdez catheter can be removed today. 2. Decompensated congestive diastolic congestive heart failure. Volume status has improved briskly. We will continue with IV Lasix for one more day and then plan to switch over to oral torsemide. His daily weights are down trending. He is in a significant net negative fluid balance. His renal function has improved. Continue oral fluid restriction. I am starting amiloride for its potassium sparing effect and also as it ameliorates the alkalosis associated with loop diuretic. 3. Normocytic anemia. Probably some hemodilution effect. Also, he does have iron deficiency with transferrin saturation of 12%. Orders have been written for Venofer 300 mg infusion.
[2018-12-10] MEDS: HumaLOG INSULIN (NovoLOG) PER UNIT SC SCH ×2 (08:37→12:56)
[2018-12-10] MEDS: NYSTATIN 100,000 UNITS/GM TOPICAL PWD 15 GM TOP SCH (08:37)
[2018-12-10] MEDS ORDERED: MAGNESIUM OXIDE 400 MG TAB (MAG-OX) PO SCH (09:00)
[2018-12-10] MEDS ORDERED: LEVEMIR (INSULIN DETEMIR) 1 UNITS/0.01ML SC SCH (09:00)
[2018-12-10] MEDS ORDERED: INSUDET SC (10:29)
[2018-12-10] MEDS ORDERED: Acetaminophen Tab PO (10:29)
[2018-12-10] MEDS ORDERED: AMIO200T PO (10:29)
[2018-12-10] MEDS ORDERED: NYAM10003 TOP (10:29)
[2018-12-10] MEDS ORDERED: ASCO25TA PO (10:29)
[2018-12-10] MEDS ORDERED: AMIL5TAB4 PO (10:29)
[2018-12-10] MEDS ORDERED: MYLASSUD PO (10:29)
[2018-12-10] MEDS ORDERED: LASI40TA9 PO (10:29)
--- NOTE | 2018-12-11 05:33 | DS.PDOC ---
Discharge Summary General Date of Admission Dec 01, 2018 at 19:09 Date of Discharge 12/11/18 Attending Physician: BELLA LEWIS MD Specialist/Consultants Involve: Jovani Coronado Specialist/Consultants Involve Dr DOTSON, Dr Santos Discharge Summary PROCEDURES PERFORMED DURING STAY: Permanent Dual chamber pacemaker placement on 12/05/18 DISCHARGE DIAGNOSES: Mobitz type type second degree heart block s/p PPM placement Decompensated diastolic CHF Yuliana on CKD stage 3 Paroxysmal A fib Generalized deconditioning and functional debility and gait instability with Fall at home Anxiety and depression Hypertension Diabetes with neuropathy BPH Anemia of chronic disease and iron deficiency. COMPLICATIONS/CHIEF COMPLAINT: Acute Kidney Failure,Dehydradtion,Symptomatic Zoltan. HISTORY OF PRESENT ILLNESS: See history and physical HOSPITAL COURSE: This is a 68-year-old gentleman with past medical history of diabetes , coronary artery disease with history of stents, hypertension, hyperlipidemia, paroxysmal atrial fibrillation on Eliquis, depression, gastroesophageal reflux disease (GERD), benign prostatic hyperplasia (BPH) and recent history of fall in September 2018 requiring open reduction and internal fixation (ORIF) of a right intertrochanteric (IT) femur fracture on September 30, 2018 with subsequent admission to acute rehabilitation here at [facility] discharged on 11/04/2018 who presented this admission status post a fall at home. He was noted to be bradycardic in the ED with Heart rate in the 30s. He was also noted to have YULIANA on CKD. During the course of hospitalization patient had fluid resuscitation on the back ground of bradycardia and had gone into decompensated CHF. Decompensated Diastolic CHF with preserved LV systolic function. having good diuresis with lasix and amiloride weight coming down nicely continue Po lasix, amiloride, DASH diet, fluid restriction. Bradycardia 2/2 Mobitz Type II Second Degree AV Block with 2:1 AV conduction s/p permanent dual-chamber pacemaker placement on 12/05 Acute Kidney Injury Superimposed on CKD Stage IIIB Likely 2/2 Chronic Naproxen use at home, and decompensated CHF Renal function improved after diuresis now close to baseline (Baseline ~1.7) Hyperkalemia 2/2 Above, resolved Hx of CAD s/p PCI in Cont Statin, not on betablocker due to heart block and acute CHF. Paroxysmal A-Fib Amiodarone restarted by Cardiology Eliquis for AC Functional Debility Weakness s/p recent Right Hip Fracture with repair in September 2018 which was followed by a stay in ARU then again recent fall this time. Continue PT at Sub[facility] rehab. Diabetes Mellitus Cont insulin regimen as ordered Diabetic neuropathy Continue Lyrica Hypertension On lasix and amiloride. BPH Cont Flomax GERD Continue PPI Dyslipidemia Continue Lipitor Anxiety/depression Continue Lexapro, Wellbutrin Anemia of chronic disease with iron deficiency Got venofer. DISCHARGE MEDICATIONS: Please see below. ALLERGIES: Please see below. PHYSICAL EXAMINATION ON DISCHARGE: VITAL SIGNS: Please see below. General Exam: Positive: Alert, Cooperative, No Acute Distress ENT Exam: Positive: Atraumatic, Mucous membr. moist/pink Chest Exam: Positive: Diminished Heart Exam: Positive: Rate Normal, Normal S1, Normal S2 Telemetry: Positive: Sinus (ventricular paced sinus rhythm) Abdomen Exam: Positive: Soft; Negative: Tenderness Extremity Exam: Positive: Other (2/3+ pitting edema of the lower extremities extending upwards towards the thighs); Negative: Tenderness Psych Exam: Positive: Oriented x 3 LABORATORY DATA: Please see below. ACTIVITY: [As tolerated]. DIET: DASh, 2 gram sodium, fluid restriction 1.8 liters, no poultry. DISPOSITION: Home, Self-Care. DISCHARGE INSTRUCTIONS: Follow up Dr Coronado on 12/13 for staple removal Follow up Dr Johnson in 3 weeks for pacemaker check Follow up Dr Santos in 2 weeks Follow up with MD at [facility]. DISCHARGE CONDITION: [Stable]. TIME SPENT ON DISCHARGE: Greater than 30 minutes. Vital Signs/I&Os Vital Signs Date Time Temp Pulse Resp B/P (MAP) Pulse Ox O2 Delivery O2 Flow Rate FiO2 12/10/18 08:35 16 1.0 12/10/18 06:00 97.0 78 131/75 (93) 95 I&O- Last 24 Hours up to 6 AM 12/11/18 06:00 Intake Total 1120 ml Balance 1120 ml Laboratory Data Labs 24H Laboratory Tests 2 12/10/18 05:27: Nucleated Red Blood Cells % (auto) 0.0, Anion Gap 5L, Glomerular Filtration Rate 41.5L, Blood Urea Nitrogen 59H, Creatinine 1.74H, Sodium Level 144, Potassium Level 4.0, Chloride Level 105, Carbon Dioxide Level 34H, Calcium Level 8.6L, Magnesium Level 1.8 12/10/18 06:36: Bedside Glucose (Misc Panel) 228H 3/29/19 12:01: Bedside Glucose (Misc Panel) 262H CBC/BMP Laboratory Tests 12/10/18 05:27 Red Blood Count 3.40 L, Mean Corpuscular Volume 95.3, Mean Corpuscular Hemoglobin 28.8, Mean Corpuscular Hemoglobin Concent 30.2 L, Red Cell D istribution Width 14.4, Calcium Level 8.6 L FSBS Laboratory Tests Test 12/10/18 06:36 12/10/18 12:01 Range/Units Bedside Glucose (Misc Panel) 228 262 83-110 MG/DL Microbiology Microbiology 12/03/18 Respiratory Virus Panel (PCR) (PHI) - Final, Complete 12/01/18 Urine Culture - Final, Complete Discharge Medications Scheduled Amiloride HCl (Amiloride HCl) 5 Mg Tab, 5 MG PO DAILY Amiodarone HCl (Amiodarone HCl) 200 Mg Tab, 200 MG PO DAILY Apixaban Base (Eliquis) 2.5 Mg Tab, 2.5 MG PO BID, (Reported) Ascorbic Acid (Vitamin C) 250 Mg Tab, 250 MG PO BID Atorvastatin Calcium (Atorvastatin Calcium) 10 Mg Tab, 10 MG PO DAILY, (Reported) Bupropion Hcl (Bupropion HCl Sr) 100 Mg Tab, 100 MG PO DAILY, (Reported) Cholecalciferol (Vitamin D3) 1,000 Unit Tab, 1,000 UNIT PO DAILY, (Reported) Escitalopram Oxalate (Escitalopram Oxalate) 10 Mg Tab, 10 MG PO DAILY, (Reported) Furosemide (Lasix) 40 Mg Tab, 60 MG PO BID Insulin Detemir (Levemir) 1 Units/0.01 Ml Susp, 25 UNITS SC QHS Nystatin (Nyamyc) 100,000 Unit/Gm Pow, 0 DOSE TOP BID Omeprazole (Omeprazole) 20 Mg Cap, 20 MG PO DAILY, (Reported) Pregabalin (Lyrica) 150 Mg Cap, 150 MG PO BID, (Reported) Tamsulosin Hydrochloride (Flomax) 0.4 Mg Cap, 0.4 MG PO DAILY, (Reported) Tramadol HCl (Tramadol HCl) 50 Mg Tab, 50 MG PO BID, (Reported) Scheduled PRN Aluminum/Magnesium/Simeth (Mag-Al Plus 200-200-20 mg/5Ml) 30 Ml Susp, 30 ML PO Q6HP PRN for HEARTBURN [Acetaminophen Tab] 325 MG/TAB TAB, 650 MG PO Q4HP PRN for MILD PAIN OR FEVER Allergies Coded Allergies: Penicillins (Verified Allergy, Intermediate, hives, 12/08/18) latex (Verified Allergy, Intermediate, hives, 12/08/18) BELLA LEWIS MD Dec 11, 2018 05:33
[2018-12-11] MEDS ORDERED: TORSEMIDE 20 MG TAB PO SCH (09:00)
--- NOTE | 2018-12-11 10:51 | IPN ---
DATE OF SERVICE: 12/10/2018 SUBJECTIVE: Patient is seen and examined this morning sitting out of bed to the chair. He is pending discharge to rehab. VITAL SIGNS: Temperature 97, pulse 78, respiratory rate 18, blood pressure 131/75, saturating 95% on 1 liter nasal cannula. INTAKE AND OUTPUT: Intake yesterday was 1 liter. Urine output yesterday was 5.4 liters. Net negative 4.4 liters. Weight on the bed scale today is 120.5 kg. GENERAL: Patient is seen sitting out of bed to the chair. Elderly male, morbidly obese, no acute distress. Extraocular muscles are intact. Tongue is moist. Jugular veins are not elevated while he is sitting upright. CARDIAC: Heart sounds are distant and regular. S1, S2. LUNGS: Show significant improvement in bibasilar crackles. He is comfortable without any tachypnea or accessory muscle use. ABDOMEN: Obese. Nontender. There are bowel sounds. The pitting edema in the abdominal flanks is resolved. EXTREMITIES: Still have 1+ edema bilaterally that comes up to the knees. GENITOURINARY: Shows the Hdez catheter has been removed. NEUROLOGIC: No focal deficit, but generally weak. Oriented times three. LABS: White count 5.3, hemoglobin 9.8, platelets 160. Sodium 144, potassium 4.0, bicarbonate 34, BUN 59, creatinine 1.7, magnesium 1.8. INPATIENT MEDICATIONS: I stopped the Lasix 40 mg IV every 8 hours and put the patient on torsemide and he is also started on magnesium 400 mg by mouth daily. Remainder of medications are unchanged from prior. PROBLEMS: 1. Acute kidney injury (YULIANA) superimposed on chronic kidney disease (CKD), stage IIIB. His acute kidney injury has resolved. It was secondary to cardiorenal syndrome, hypotension, NSAID use and contrast exposure. His renal function has recovered to his usual baseline. He is not suitable for [facility] nor [facility]. He is tolerating the diuretic very well. His Hdez catheter can be removed. I am switching him over to oral diuretic now. His volume status is not yet fully compensated. 2. Decompensated congestive diastolic congestive heart failure (diastolic). Volume status has improved briskly, but he is not yet euvolemic. I am switching him over to an oral diuretic. Daily weights are downtrending. He is in significant net negative fluid balance. His renal function has recovered. He needs to continue oral fluid restriction. We are also using amiloride for its potassium sparing effect. 3. Normocytic anemia with iron deficiency. He is status post Venofer infusion. There is likely some hemodilution effect. Hemoglobin is improved from prior.
[2018-12-13] MEDS ORDERED: IRON325T7 PO (01:14)
== END 2018-12-10 14:00 | DRG 242 ==
LOC: M ED 15:14 → EDBD 15:14 → M ED INP 19:09 → M ICU 19:50 → M PCU 12-02 16:01 → M ICU 12-03 19:42 → M MSPAV 12-07 17:06
PROVIDERS: ADMIT Internal Medicine; ATTEND Internal Medicine Nephrology
PROC: 02H63JZ Insertion of Pacemaker Lead into Right Atrium, Percutaneous Approach (ICD-10-PCS; 2018-12-05)
PROC: 02HK3JZ Insertion of Pacemaker Lead into Right Ventricle, Percutaneous Approach (ICD-10-PCS; 2018-12-05)
PROC: 0JH606Z Insertion of Pacemaker, Dual Chamber into Chest Subcutaneous Tissue and Fascia, Open Approach (ICD-10-PCS; principal; 2018-12-05 08:00)
DX: I44.1 Atrioventricular block, second degree (principal); I50.33 Acute on chronic diastolic (congestive) heart failure; L97.419 Non-pressure chronic ulcer of right heel and midfoot with unspecified severity; Z68.42 Body mass index [BMI] 45.0-49.9, adult; I13.0 Hypertensive heart and chronic kidney disease with heart failure and stage 1 through stage 4 chronic kidney disease, or unspecified chronic kidney disease; E11.621 Type 2 diabetes mellitus with foot ulcer; I25.10 Atherosclerotic heart disease of native coronary artery without angina pectoris; E78.5 Hyperlipidemia, unspecified; N18.3 Chronic kidney disease, stage 3 (moderate); R53.1 Weakness; E11.40 Type 2 diabetes mellitus with diabetic neuropathy, unspecified; E87.5 Hyperkalemia; I48.0 Paroxysmal atrial fibrillation; E66.01 Morbid (severe) obesity due to excess calories; E11.51 Type 2 diabetes mellitus with diabetic peripheral angiopathy without gangrene; I45.10 Unspecified right bundle-branch block; E11.22 Type 2 diabetes mellitus with diabetic chronic kidney disease; R29.6 Repeated falls; T39.395A Adverse effect of other nonsteroidal anti-inflammatory drugs [NSAID], initial encounter; F32.9 Major depressive disorder, single episode, unspecified; D50.9 Iron deficiency anemia, unspecified; K21.9 Gastro-esophageal reflux disease without esophagitis; N40.0 Benign prostatic hyperplasia without lower urinary tract symptoms; Z95.5 Presence of coronary angioplasty implant and graft; Z79.01 Long term (current) use of anticoagulants; Z79.891 Long term (current) use of opiate analgesic; Z79.4 Long term (current) use of insulin; Z79.899 Other long term (current) drug therapy; Z79.1 Long term (current) use of non-steroidal anti-inflammatories (NSAID); Z88.0 Allergy status to penicillin

== ENCOUNTER → 2018-12-11 | Outpatient (REF) | payer MEDICARE, MEDICAID ==
[~2018-12-11] MED LIST changes: +ACET1TAB55 PO; +ALEV220T26 PO; +AMIL5TAB4 PO; +ASCO250T PO; +ASCO25TA PO; +BASA100I SC; +BISA10SU4 PR; +BUPR100T3 PO; +ENEMENE6 PR; +FURO20TA2 PO; +GLUC1KIT IM; +HUMA100I5 SC; +IRON325T7 PO; +LASI40TA9 PO; +MAGN250T11 PO; +MILK120011 PO; +MYLASSUD PO; +NYAM10003 TOP; +NYST1POW9 TOP; +SITA50TAB PO; +TRAM1CAP15 PO; +VITA-122 PO
== END ==
PROVIDERS: ATTEND Internal Medicine
DX: N18.9 Chronic kidney disease, unspecified (principal)

== ENCOUNTER 2018-12-12 21:56 | Inpatient (IN) | payer MEDICARE, MEDICAID ==
[~2018-12-12] VITALS: Ht 165.1 cm; Wt 113.1 kg
[2018-12-12] MEDS: NYSTATIN 100,000 UNITS/GM TOPICAL PWD 15 GM TOP SCH (04:00)
[2018-12-12] MEDS: APIXABAN 2.5 MG TAB (ELIQUIS) PO SCH (21:00)
[2018-12-12] MEDS: traMADol 50 MG TAB PO SCH (21:00)
[2018-12-12] MEDS: ATORVASTATIN 10 MG TAB PO SCH (21:00)
[2018-12-12] MEDS: PREGABALIN 75 MG CAP(LYRICA) PO SCH (21:00)
[2018-12-12] MEDS: LEVEMIR (INSULIN DETEMIR) 1 UNITS/0.01ML SC SCH (21:00)
[~2018-12-12 21:56] MED LIST changes: -ACET1TAB55 PO; -ASCO250T PO; -ASCO25TA PO; -BASA100I SC; -BISA10SU4 PR; -ENEMENE6 PR; -FURO20TA2 PO; -GLUC1KIT IM; -HUMA100I5 SC; +HYDR-3715 PO; -IRON325T7 PO; -MILK120011 PO; -NORCOTAB PO; -NYST1POW9 TOP; -SITA50TAB PO; +VITA1TAB23 PO
[2018-12-12] MEDS ORDERED: ACETAMINOPHEN TAB 650MG DOSE (2X325MG) PO ONE (22:15)
[2018-12-12 23:10] LABS: BASO % 0.3 % (0.0-1.0); EOS # 0.2 10^3/uL (0.0-0.50); EOS % 2.4 % (0.0-3.0); HEMATOCRIT 29.6 % (42.0-52.0); HEMOGLOBIN 9.1 g/dl (13.5-17.5); LYMPH # 1.2 10^3/uL (1.5-4.5); LYMPH % 18.8 % (24.0-44.0); MEAN CORPUSCULAR HEMOGLOBIN 28.6 pg (27.0-33.0); MEAN CORPUSCULAR HGB CONC 30.7 g/dl (32.0-36.5); MEAN CORPUSCULAR VOLUME 93.1 fl (80.0-96.0); MONO # 0.5 10^3/uL (0.0-0.8); MONO % 7.5 % (0.0-5.0); NEUTROPHILS # 4.4 10^3/uL (1.8-7.7); NEUTROPHILS % 70.7 % (36.0-66.0); PLATELET COUNT, AUTOMATED 142 10^3/uL (150-450); RED BLOOD COUNT 3.18 10^6/uL (4.30-6.10); VENOUS BASE EXCESS 7.4 (-2.0-2.0); VENOUS HCO3 32.4 MEQ/L (23.0-27.0); VENOUS O2 SATURATION 94.9 % (60.0-80.0); VENOUS PARTIAL PRESSURE CO2 48.2 mmHg (38.0-50.0); VENOUS PARTIAL PRESSURE O2 74.7 mmHg (30.0-50.0); VENOUS PH 7.446 UNITS (7.330-7.430); VENOUS STANDARD HCO3 31.2 MEQ/L; VENOUS TOTAL CO2 33.9 MEQ/L (24.0-28.0); WHITE BLOOD COUNT 6.2 10^3/uL (4.0-10.0)
[2018-12-12 23:45] LABS: ALBUMIN 2.7 GM/DL (3.2-5.2); BILIRUBIN,DIRECT 0.2 MG/DL (0.0-0.2); BILIRUBIN,TOTAL 0.5 MG/DL (0.2-1.0); CALCIUM LEVEL 7.9 MG/DL (8.8-10.2); CREATININE FOR GFR 2.04 MG/DL (0.70-1.30); GLOMERULAR FILTRATION RATE 34.5 (>42); MB/CK RELATIVE INDEX 1.93 (< OR =4); POTASSIUM SERUM 4.3 MEQ/L (3.5-5.1); THYROID STIMULATING HORMONE 7.13 uIU/ML (0.358-3.740); THYROXINE (T4) 7.4 UG/DL (4.5-12.0); TOTAL PROTEIN 5.9 GM/DL (6.4-8.2); TROPONIN I 0.02 NG/ML (< 0.10)
--- NOTE | 2018-12-12 23:49 | REPVR ---
EXAM: US Duplex Left Lower Extremity Veins, Limited EXAM DATE/TIME: 12/12/2018 11:18 PM CLINICAL HISTORY: 68 years old, male; Signs and symptoms; Edema, localized; Lower extremity, left; Additional info: Pain/swelling lle TECHNIQUE: Imaging protocol: Real-time Duplex ultrasound of the Left Lower Extremity with 2-D chavez scale, color Doppler flow and spectral waveform analysis. Limited exam focused on the left lower extremity veins. COMPARISON: US Duplex, Ext,LOWER veins,unilat 01/04/2015 12:58 PM FINDINGS: Left deep veins: Unremarkable. The common femoral, femoral and popliteal veins are patent without thrombus. Normal compressibility, augmentation response and Doppler waveforms. Left superficial veins: Unremarkable. Saphenofemoral junction is patent without thrombus. Soft tissues: Unremarkable. IMPRESSION: No sonographic evidence of deep vein thrombosis. Electronically signed by: Damian Perales On 12/12/2018 23:48:44 PM
[2018-12-13 00:05] LABS: INFLUENZA A AMPLIFICATION NEGATIVE (NEGATIVE); INFLUENZA B AMPLIFICATION NEGATIVE (NEGATIVE)
--- NOTE | 2018-12-13 00:31 | REPVR ---
EXAM: CT Chest Without Contrast EXAM DATE/TIME: 12/12/2018 12:05 AM CLINICAL HISTORY: 68 years old, male; Pain; Chest pain; Additional info: Hypoxia TECHNIQUE: Imaging protocol: Axial computed tomography images of the chest without intravenous contrast. Coronal and sagittal reformatted images were created and reviewed. 3D rendering: MIP reconstructed images were created and reviewed. Radiation optimization: All CT scans at this facility use at least one of these dose optimization techniques: automated exposure control; mA and/or kV adjustment per patient size (includes targeted exams where dose is matched to clinical indication); or iterative reconstruction. COMPARISON: CR PORTABLE CHEST X-RAY 12/12/2018 10:25 PM FINDINGS: Tubes, catheters and devices: Left-sided pacemaker with leads overlying the right atrium and right ventricle. Lungs: Mild linear stranding and groundglass, likely due to atelectasis and/or scarring. Subsegmental bibasilar consolidations, likely due to atelectasis. Pleural space: Small to moderate, loculated pleural effusions. No pneumothorax. Heart: No cardiomegaly. Small pericardial effusion. Mediastinum: Small hiatal hernia. Aorta: Unremarkable. No aneurysm. Lymph nodes: No pathologically enlarged lymph nodes. Bones/joints: No acute osseous abnormality. Osteopenia. Degenerative changes. Soft tissues: Unremarkable. Gallbladder and bile ducts: Status post cholecystectomy. No biliary ductal dilatation. IMPRESSION: 1. Limited noncontrast examination. 2. Small to moderate, loculated pleural effusions with associated subsegmental bibasilar consolidations, likely due to atelectasis. 3. Small pericardial effusion. 4. Additional findings, as above. Electronically signed by: Damian Perales On 12/13/2018 00:30:40 AM
[2018-12-13] MEDS ORDERED: SITA50TAB PO (01:02)
[2018-12-13] MEDS ORDERED: MILK120011 PO (01:02)
[2018-12-13] MEDS ORDERED: ENEMENE6 PR (01:02)
[2018-12-13] MEDS ORDERED: BASA100I SC (01:02)
[2018-12-13] MEDS ORDERED: HUMA100I5 SC (01:02)
[2018-12-13] MEDS ORDERED: ASCO250T PO (01:02)
[2018-12-13] MEDS ORDERED: AMIL5TAB4 PO (01:02)
[2018-12-13] MEDS ORDERED: FURO20TA2 PO (01:02)
[2018-12-13] MEDS ORDERED: ACET1TAB55 PO (01:02)
[2018-12-13] MEDS ORDERED: AMIO200T PO (01:02)
[2018-12-13] MEDS ORDERED: BISA10SU4 PR (01:02)
[2018-12-13] MEDS ORDERED: NYST1POW9 TOP (01:14)
[2018-12-13] MEDS ORDERED: FERR325T82 PO (01:14)
[2018-12-13] MEDS ORDERED: GLUC1KIT IM (01:14)
[2018-12-13] MEDS ORDERED: MYLASSUD PO (01:14)
[2018-12-13 01:26] LABS: INR 1.78
[2018-12-13 01:27] LABS: PARTIAL THROMBOPLASTIN TIME 43.9 SECONDS (25.4-37.6)
[2018-12-13] MEDS ORDERED: MAALOX 30 ML SUSP *UDC PO PRN (01:45)
[2018-12-13] MEDS ORDERED: GLUCOSE 4 GM CHEW TABLET PO PRN (01:45)
[2018-12-13] MEDS ORDERED: GLUCAGON FOR INJ 1 MG VIAL (J1610) SC PRN (01:45)
[2018-12-13] MEDS ORDERED: BISACODYL 10 MG SUPP PR PRN (01:45)
[2018-12-13] MEDS ORDERED: MOM 30ML SUSPENSION UDC PO PRN (01:45)
[2018-12-13] MEDS ORDERED: DEXTROSE 50% 50 ML SYRINGE IV PRN (01:45)
[2018-12-13] MEDS ORDERED: LevoFLOXacin IV 500 MG in APPROPRIATE DILUENT 1 EA IV ONE (02:00)
--- NOTE | 2018-12-13 02:00 | REPVR ---
EXAM: CT Head Without Contrast EXAM DATE/TIME: 12/13/2018 1:48 AM CLINICAL HISTORY: 68 years old, male; Pain; Headache; Additional info: Weakness , leg, pain TECHNIQUE: Imaging protocol: Axial computed tomography images of the head/brain without contrast. Radiation optimization: All CT scans at this facility use at least one of these dose optimization techniques: automated exposure control; mA and/or kV adjustment per patient size (includes targeted exams where dose is matched to clinical indication); or iterative reconstruction. COMPARISON: CT Head without contrast 12/01/2018 4:20 PM FINDINGS: Brain: Patchy areas of hypoattenuation in the periventricular and subcortical white matter, consistent with chronic small vessel ischemic disease. No CT evidence of acute intracranial hemorrhage or acute territorial infarction. No significant mass effect or midline shift. Basal cisterns patent. Ventricles: Prominence of the cortical sulci, cisterns and ventricular system, consistent with cerebral and cerebellar volume loss. Bones/joints: No acute osseous abnormality. Sinuses: Mild ethmoid and left maxillary sinus mucosal thickening. Mastoid air cells: Minimal opacification of the dependent mastoid air cells. Soft tissues: Mild left parietal scalp swelling. Vasculature: Calcific atherosclerotic disease in the cavernous internal carotid arteries, as well as the vertebro-basilar system. IMPRESSION: 1. No CT evidence of acute intracranial pathology. 2. Additional findings, as above. Electronically signed by: Damian Perales On 12/13/2018 01:59:31 AM
[2018-12-13 04:00] VITALS: BP 131/77
--- NOTE | 2018-12-13 06:45 | ECGEPIP ---
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
[2018-12-13 06:57] LABS: FREE T4 1.13 NG/DL (0.76-1.46); THYROID STIMULATING HORMONE 5.62 uIU/ML (0.358-3.740)
--- NOTE | 2018-12-13 08:12 | REP ---
Portable chest x-ray: Single view. History: Dyspnea and cough. Comparison chest x-ray: December 06, 2018. Findings: A bipolar pacemaker is again seen in the right heart. EKG electrodes are noted. Moderate cardiac enlargement is seen. There is hazy opacity at the right base suggesting a right pleural effusion which is small. There is some fissural thickening in the minor fissure on the right. There is slight blunting of the left lateral pleural angle. There is discoid atelectasis in the left perihilar region. No infiltrate is seen. Impression: Cardiomegaly consistent with CHF. Small bilateral effusions. Plate-like atelectasis left perihilar region. Electronically Signed by Mauro Avila MD 12/13/2018 08:04 A
--- NOTE | 2018-12-13 08:58 | ECGEPIP ---
Stationary ECG Study 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
[2018-12-13] MEDS: PREGABALIN 75 MG CAP(LYRICA) PO SCH ×3 (09:00→21:56)
[2018-12-13] MEDS: traMADol 50 MG TAB PO SCH ×2 (09:00→21:00)
--- NOTE | 2018-12-13 09:01 | HPE ---
DATE OF ADMISSION: 12/13/2018 CHIEF COMPLAINT: Patient has quite a few complaints. He states that he had some leg pain, dizziness when he tried to ambulate and he was also somewhat short of breath. He has also a cough of yellow sputum. HISTORY OF PRESENT ILLNESS (HPI): The patient is a 68-year-old male, significant past medical history of diastolic congestive heart failure (CHF), diabetes, coronary artery disease (CAD), status post PCI, hypertension, hyperlipidemia, atrial fibrillation (AFib) on Eliquis, depression, gastroesophageal reflux disease (GERD), BPH. He also had a recent fall and a fracture open reduction, internal fixation (ORIF) at [facility] September 2018 and was noted to be bradycardic and had a pacemaker placed approximately a week and a half ago. He subsequently was discharged to [facility] rehab. During rehab it states once the patient attempted rehab he felt pain in the leg. He felt somewhat weak, dizziness and he became somewhat hypoxic. Patient's nurses say symptomatically he complained of shortness of breath but when removed of oxygen he does desaturate down o the mid to upper 80s. He states he has been a having a cough of yellow productive sputum. He denies any chest pain, abdominal pain, constipation, diarrhea, or urinary symptoms. CT shows bilateral small to moderate pleural effusion, what appears to be atelectasis versus consolidation. I believe differential on this patient is either atelectasis, mild CHF exacerbation or brewing pneumonia with apparent pneumonic effusion which is less likely. PAST MEDICAL HISTORY: See HPI. PAST SURGICAL HISTORY: ORIF and pacemaker. HOME MEDICATIONS: Include: - Tylenol - Lasix - insulin - Januvia - amiloride - amiodarone - Eliquis - Lipitor - Basaglar - bisacodyl - bupropion - vitamin D - citalopram - iron - omeprazole - tamsulosin SOCIAL HISTORY: Denies tobacco, alcohol, illicit drug use. FAMILY HISTORY: Noncontributory. REVIEW OF SYSTEMS: A 12-point review of systems was completed, all which are negative except as listed in the HPI. VITAL SIGNS: On admission, temperature 99, pulse of 84, respirations 20, blood pressure 159/74, saturating at 93% on room air. PHYSICAL EXAMINATION: General: He is well-nourished, in no apparent distress. Head is normocephalic, atraumatic. Eyes: Extraocular movements are intact. Pupils equal, round and reactive to light. Neck is supple. No jugular venous pulse (JVP). Lungs: He has bibasilar crackles. Cardiovascular: Paced rhythm. Normal S1, S2. No murmurs, gallops or rubs. Abdomen is soft, nontender, nondistended. Positive bowel sounds. No rebound or guarding. Extremities: Trace edema. No calf tenderness. Skin is intact. No rashes, lesions or breakdown. Neurological exam: Alert and oriented times three. No focal deficits. LABORATORIES AND IMAGING: Done in the emergency room (ER): White count of 6, hemoglobin and hematocrit of 9/29, platelet count of 142. He has had thrombocytopenia in the past. Chemistries shows a BUN and creatinine of 59/2.04 (baseline creatinine around 1.8). Initial troponin is negative. Coagulation panel shows an INR of 1.38. Rapid flu is negative. Chest CT shows small to moderate loculated pleural effusion with associated segmental bibasilar consolidation possibly likely due to atelectasis, small pleural pericardial effusion. Dopplers of the lower extremities show no deep venous thrombosis (DVT). ASSESSMENT AND PLAN: Acute respiratory failure with hypoxia likely secondary to mild congestive heart failure exacerbation versus atelectasis with associated effusion versus less likely pneumonia. The patient does not appear toxic. We will treat Levaquin for now. We will continue diuresis with Lasix and amiloride, strict intake and output, daily weights, elevate the head of bed. Rule out ACS with serial troponins, serial EKG. We will also present the patient with incentive spirometry to help with his atelectasis. The rest of his chronic medical condition: Atrial fibrillation: Continue amiodarone and Eliquis. Hyperlipidemia: Continue Lipitor. Diabetes with what appears to be neuropathy: Continue insulin long-acting and sliding scale. Chronic kidney disease (CKD): Appears to be stable at baseline Iron deficiency anemia: Continue iron. Neuropathy: Continue Lyrica. BPH: Continue tamsulosin. Gastroesophageal reflux disease: Continue omeprazole. Supportive deep venous thrombosis prophylaxis: He is on Eliquis. Gastrointestinal (GI) prophylaxis: He is on omeprazole. Diet: Cardiac, diabetic, fluid restriction. MTDD
[2018-12-13] MEDS: HumaLOG INSULIN (NovoLOG) PER UNIT SC SCH ×3 (09:30→17:45)
[2018-12-13] MEDS: TAMSULOSIN 0.4 MG CAP PO SCH (10:03)
[2018-12-13] MEDS: FERROUS SULFATE 325MG TAB PO SCH (10:03)
[2018-12-13] MEDS: buPROPion (WELLBUTRIN SR) 100 MG SR TAB PO SCH (10:03)
[2018-12-13] MEDS: OMEPRAZOLE 20 MG CAP PO SCH (10:03)
[2018-12-13] MEDS: ESCITALOPRAM OXALATE 10 MG TAB (LEXAPRO) PO SCH (10:03)
[2018-12-13] MEDS: aMILoride 5 MG TAB PO SCH (10:03)
[2018-12-13] MEDS: APIXABAN 2.5 MG TAB (ELIQUIS) PO SCH ×2 (10:03→21:56)
[2018-12-13] MEDS: AMIODARONE 200 MG TAB (PACERONE) PO SCH (10:03)
[2018-12-13] MEDS: VITAMIN D 1,000 INTERNATIONAL UNITS TABLET PO SCH (10:03)
[2018-12-13] MEDS: NYSTATIN 100,000 UNITS/GM TOPICAL PWD 15 GM TOP SCH ×2 (10:04→21:57)
[2018-12-13] MEDS: FUROSEMIDE 40 MG/4 ML VIAL (J1940) IV SCH ×2 (10:04→17:45)
[2018-12-13 14:00] VITALS: BP 149/76
[2018-12-13] MEDS: ATORVASTATIN 10 MG TAB PO SCH (21:56)
[2018-12-13] MEDS: LEVEMIR (INSULIN DETEMIR) 1 UNITS/0.01ML SC SCH (21:56)
[2018-12-13 22:00] VITALS: BP 128/66
[2018-12-14] MEDS: LevoFLOXacin IV 250 MG in APPROPRIATE DILUENT 1 EA IV SCH (01:52)
[2018-12-14 06:00] VITALS: BP 134/70
[2018-12-14 06:44] LABS: HEMATOCRIT 31.1 % (42.0-52.0); HEMOGLOBIN 9.5 g/dl (13.5-17.5); MEAN CORPUSCULAR HEMOGLOBIN 29.1 pg (27.0-33.0); MEAN CORPUSCULAR HGB CONC 30.5 g/dl (32.0-36.5); MEAN CORPUSCULAR VOLUME 95.4 fl (80.0-96.0); PLATELET COUNT, AUTOMATED 150 10^3/uL (150-450); RED BLOOD COUNT 3.26 10^6/uL (4.30-6.10); WHITE BLOOD COUNT 7.8 10^3/uL (4.0-10.0)
[2018-12-14 07:11] LABS: BLOOD UREA NITROGEN 61 MG/DL (7-18); CALCIUM LEVEL 8.7 MG/DL (8.8-10.2); CARBON DIOXIDE LEVEL 33 MEQ/L (21-32); CHLORIDE LEVEL 100 MEQ/L (98-107); CREATININE FOR GFR 2.22 MG/DL (0.70-1.30); GLOMERULAR FILTRATION RATE 31.3 (>42); GLUCOSE, FASTING 258 MG/DL (70-100); POTASSIUM SERUM 4.7 MEQ/L (3.5-5.1); SODIUM LEVEL 139 MEQ/L (136-145); TROPONIN I < 0.02 NG/ML (< 0.10)
[2018-12-14] MEDS: VITAMIN D 1,000 INTERNATIONAL UNITS TABLET PO SCH (09:20)
[2018-12-14] MEDS: AMIODARONE 200 MG TAB (PACERONE) PO SCH (09:21)
[2018-12-14] MEDS: ESCITALOPRAM OXALATE 10 MG TAB (LEXAPRO) PO SCH (09:21)
[2018-12-14] MEDS: OMEPRAZOLE 20 MG CAP PO SCH (09:21)
[2018-12-14] MEDS: TAMSULOSIN 0.4 MG CAP PO SCH (09:21)
[2018-12-14] MEDS: PREGABALIN 75 MG CAP(LYRICA) PO SCH ×2 (09:21→21:05)
[2018-12-14] MEDS: buPROPion (WELLBUTRIN SR) 100 MG SR TAB PO SCH (09:21)
[2018-12-14] MEDS: APIXABAN 2.5 MG TAB (ELIQUIS) PO SCH ×2 (09:21→21:05)
[2018-12-14] MEDS: FERROUS SULFATE 325MG TAB PO SCH (09:21)
[2018-12-14] MEDS: aMILoride 5 MG TAB PO SCH (09:22)
[2018-12-14] MEDS: NYSTATIN 100,000 UNITS/GM TOPICAL PWD 15 GM TOP SCH ×2 (09:23→21:05)
[2018-12-14] MEDS: HumaLOG INSULIN (NovoLOG) PER UNIT SC SCH ×4 (09:23→20:59)
[2018-12-14 14:00] VITALS: BP 166/83
[2018-12-14] MEDS ORDERED: FUROSEMIDE 40 MG/4 ML VIAL (J1940) IV ONE (15:45)
--- NOTE | 2018-12-14 16:56 | IPNPDOC ---
Text Note Date of Service The patient was seen on 12/13/18. NOTE S: Pt examined at bedside. States that he has progressively been getting more short of breath over past couple days with coughing. Also noted increased edema, but unsure of how long that has continued. He continues to be on supplemental oxygen. No issues overnight since his admission. PE: General: NAD, A&O, resting comfortably HEENT: NCAT, EOMI, anicteric sclera, MMM CV: RRR, no murmurs RESP: b/l crackles. No wheezing or rhonchi. Able to speak in full sentences ABD: obese, soft, NT, ND. Benign EXTREMITIES: 2+ radial pulses b/l, able to move all extremities, 1-2+ pitting edema b/l NEURO: no deficits or acute changes A/P: 1. Acute hypoxemia Dyspnea with productive sputum. Requiring supplemental oxygen 2-3L NC, none at baseline Likely multifactorial 2/2 pneumonia and atelectasis. Possible underlying d ecompensated CHF given his hypervolemic status Bilateral pleural effusions noted on imaging on admission. Per the report, there is a loculated effusion. This was discussed with pulmonology yesterday 0 12/13/2018, who do not believe it is loculated and recommend continue current management. Continue Levaquin. Blood cultures negative thus far 24 hours Continue incentive spirometer Strict I's and O's, daily weights, elevate head of bed 2. Hx Diastolic CHF Normally is on Lasix by mouth 60 MG twice a day at home. He appears slightly hypervolemic. Given his YULIANA, will give a 1x dose of Lasix and reassess vol status. Continue home Amiloride 3. YULIANA Baseline CR ~1.7. He presented with a creatinine of 2.04, which has risen to 2.22 this a.m. Currently hold any nephrotoxins and diuretics. Will reassess tomorrow. 4. A. fib is controlled with amiodarone. Chronically on Elocon is 5. IDDM 2 with neuropathy continue Lyrica. ISS inpt 6. CAD s/p PCI 7. HTN 8. HLD Continue Lipitor 9. Chronic AFib Chronically on Eliquis & Amiodarone 10. Depression Stable. Continue Lexapro & Bupropion 11. GERD Continue omeprazole 12. BPH Continue Flomax 13. Recent rt hip fracture from mechanical fall s/p ORIF 14. History of Bradycardia s/p PPM placement DVT ppx: chronically Eliquis DISPO: pending PT/OT & clinical improvement. VS,Fishbone, I+O VS, Fishbone, I+O Laboratory Tests 12/12/18 22:47 Red Blood Count 3.18 L, Mean Corpuscular Volume 93.1, Mean Corpuscular Hemoglobin 28.6, Mean Corpuscular Hemoglobin Concent 30.7 L, Red Cell Distribution Width 14.8 H, Neutrophils (%) (Auto) 70.7 H, Lymphocytes (%) (Auto) 18.8 L, Monocytes (%) (Auto) 7.5 H, Eosinophils (%) (Auto) 2.4, Basophils (%) (Auto) 0.3, Neutrophils # (Auto) 4.4, Lymphocytes # (Auto) 1.2 L, Monocytes # (Auto) 0.5, Eosinophils # (Auto) 0.2, Basophils # (Auto) 0.0 Vital Signs Date Time Temp Pulse Resp B/P (MAP) Pulse Ox O2 Delivery O2 Flow Rate FiO2 12/13/18 14:00 97.3 73 16 149/76 (100) 96 2.0 12/13/18 04:00 92 12/13/18 02:56 Nasal Cannula I&O- Last 24 Hours up to 6 AM 12/13/18 05:59 Intake Total 0 ml Balance 0 ml GME ATTESTATION GME ATTESTATION My faculty preceptor for this patient encounter was physically present during the encounter and was fully available. All aspects of the patient interview, examination, medical decision making process, and medical care plan development were reviewed and approved by the faculty preceptor. The faculty preceptor is aware and concurs with the plan as stated in the body of this note and will attest to such by his/her cosignature. ISAIAS STOKES DO Dec 13, 2018 19:18
[2018-12-14] MEDS: ATORVASTATIN 10 MG TAB PO SCH (21:05)
[2018-12-14] MEDS: LEVEMIR (INSULIN DETEMIR) 1 UNITS/0.01ML SC SCH (21:05)
[2018-12-14 22:00] VITALS: BP 137/75
[2018-12-15] MEDS: LevoFLOXacin IV 250 MG in APPROPRIATE DILUENT 1 EA IV SCH (01:14)
[2018-12-15 06:00] VITALS: BP 132/73
[2018-12-15 06:08] LABS: HEMATOCRIT 31.2 % (42.0-52.0); HEMOGLOBIN 9.4 g/dl (13.5-17.5); MEAN CORPUSCULAR HEMOGLOBIN 28.7 pg (27.0-33.0); MEAN CORPUSCULAR HGB CONC 30.1 g/dl (32.0-36.5); MEAN CORPUSCULAR VOLUME 95.1 fl (80.0-96.0); PLATELET COUNT, AUTOMATED 166 10^3/uL (150-450); RED BLOOD COUNT 3.28 10^6/uL (4.30-6.10)
[2018-12-15 06:33] LABS: CALCIUM LEVEL 8.4 MG/DL (8.8-10.2); CREATININE FOR GFR 2.25 MG/DL (0.70-1.30); GLOMERULAR FILTRATION RATE 30.8 (>42); POTASSIUM SERUM 4.6 MEQ/L (3.5-5.1)
[2018-12-15] MEDS: VITAMIN D 1,000 INTERNATIONAL UNITS TABLET PO SCH (08:21)
[2018-12-15] MEDS: FERROUS SULFATE 325MG TAB PO SCH (08:21)
[2018-12-15] MEDS: buPROPion (WELLBUTRIN SR) 100 MG SR TAB PO SCH (08:21)
[2018-12-15] MEDS: FUROSEMIDE 40 MG/4 ML VIAL (J1940) IV SCH ×2 (08:21→16:59)
[2018-12-15] MEDS: APIXABAN 2.5 MG TAB (ELIQUIS) PO SCH ×2 (08:21→20:15)
[2018-12-15] MEDS: OMEPRAZOLE 20 MG CAP PO SCH (08:21)
[2018-12-15] MEDS: PREGABALIN 75 MG CAP(LYRICA) PO SCH ×2 (08:21→20:15)
[2018-12-15] MEDS: TAMSULOSIN 0.4 MG CAP PO SCH (08:21)
[2018-12-15] MEDS: HumaLOG INSULIN (NovoLOG) PER UNIT SC SCH ×4 (08:22→20:23)
[2018-12-15] MEDS: ESCITALOPRAM OXALATE 10 MG TAB (LEXAPRO) PO SCH (08:22)
[2018-12-15] MEDS: AMIODARONE 200 MG TAB (PACERONE) PO SCH (08:22)
[2018-12-15] MEDS: aMILoride 5 MG TAB PO SCH (08:22)
[2018-12-15] MEDS: NYSTATIN 100,000 UNITS/GM TOPICAL PWD 15 GM TOP SCH ×2 (08:23→20:15)
[2018-12-15] MEDS ORDERED: traMADol 50 MG TAB PO PRN (09:00)
[2018-12-15 14:00] VITALS: BP 154/70
--- NOTE | 2018-12-15 17:18 | IPNPDOC ---
Text Note Date of Service The patient was seen on 12/15/18. NOTE S: Pt examined at bedside. States he is feeling better today. No new complaints. Less short of breath, but still not back to his baseline. No f/c, n/v, abd pain. No reported events overnight. PE: General: NAD, A&O, resting comfortably HEENT: NCAT, EOMI, anicteric sclera, MMM CV: RRR, no murmurs RESP: b/l crackles, l>r. No wheezing or rhonchi. Able to speak in full sentences ABD: obese, soft, NT, ND. Benign EXTREMITIES: 2+ radial pulses b/l, able to move all extremities, 1+ pitting edema b/l NEURO: no deficits or acute changes A/P: 1. Acute hypoxemia Dyspnea with productive sputum. Continues to require supplemental O2, none at baseline. Continue weaning down Likely multifactorial 2/2 decompensated CHF and atelectasis/possible URTI Blood cultures negative at 48 hrs. Will stop abx if neg at final result. He remains afebrile Continue incentive spirometer Strict I's and O's, daily weights, elevate head of bed 2. Decompensated Diastolic CHF BNP trending down from admission. Normally is on po Lasix 60 MG bid at home His hypervolemic status is improving slightly with cautious diuresis in setting of YULIANA, which remains unchanged Continue diuresis with close monitoring of volume status and renal function. Continue home Amiloride 3. YULIANA on CKD III Baseline CR ~1.7. It remains ~2.2 today despite giving him only 1 Lasix dose 40 MG IV yesterday Will increase his diuresis, as this may possibly be cardiorenal syndrome and he remains hypervolemic today He still able to make urine, with >1L output yesterday We'll reassess renal function and I/O tomorrow 4. A. fib is controlled with amiodarone. Chronically on Eliquis 5. IDDM 2 with neuropathy continue Lyrica. ISS & Levemir inpt 6. CAD s/p PCI 7. HTN 8. HLD Continue Lipitor 9. Chronic AFib Chronically on Eliquis & Amiodarone 10. Depression Stable. Continue Lexapro & Bupropion 11. GERD Continue omeprazole 12. BPH Continue Flomax 13. Recent rt hip fracture from mechanical fall s/p ORIF. Continue Tramadol 14. History of Bradycardia s/p PPM placement DVT ppx: chronically Eliquis DISPO: pending PT/OT, vol optimization & wean off O2 VS,Fishbone, I+O VS, Fishbone, I+O Laboratory Tests 12/15/18 05:12 Red Blood Count 3.28 L, Mean Corpuscular Volume 95.1, Mean Corpuscular Hemoglobin 28.7, Mean Corpuscular Hemoglobin Concent 30.1 L, Red Cell Distribution Width 14.9 H, Calcium Level 8.4 L Vital Signs Date Time Temp Pulse Resp B/P (MAP) Pulse Ox O2 Delivery O2 Flow Rate FiO2 12/15/18 14:00 98.6 82 18 154/70 (98) 97 2.0 12/13/18 21:00 28 12/13/18 02:56 Nasal Cannula I&O- Last 24 Hours up to 6 AM 12/15/18 06:00 Intake Total 1560 ml Output Total 850 ml Balance 710 ml GME ATTESTATION GME ATTESTATION My faculty preceptor for this patient encounter was physically present during the encounter and was fully available. All aspects of the patient interview, examination, medical decision making process, and medical care plan development were reviewed and approved by the faculty preceptor. The faculty preceptor is aware and concurs with the plan as stated in the body of this note and will attest to such by his/her cosignature. ISAIAS STOKES DO Dec 15, 2018 17:18 MICHA VERGARA MD Dec 15, 2018 18:16
[2018-12-15] MEDS: ATORVASTATIN 10 MG TAB PO SCH (20:15)
[2018-12-15] MEDS: LEVEMIR (INSULIN DETEMIR) 1 UNITS/0.01ML SC SCH (20:15)
[2018-12-15 22:00] VITALS: BP 129/66
[2018-12-16] MEDS: LevoFLOXacin IV 250 MG in APPROPRIATE DILUENT 1 EA IV SCH (01:27)
[2018-12-16 06:00] VITALS: BP 141/68
[2018-12-16 06:17] LABS: HEMATOCRIT 30.7 % (42.0-52.0); HEMOGLOBIN 9.4 g/dl (13.5-17.5); MEAN CORPUSCULAR HEMOGLOBIN 28.9 pg (27.0-33.0); MEAN CORPUSCULAR HGB CONC 30.6 g/dl (32.0-36.5); MEAN CORPUSCULAR VOLUME 94.5 fl (80.0-96.0); PLATELET COUNT, AUTOMATED 168 10^3/uL (150-450); RED BLOOD COUNT 3.25 10^6/uL (4.30-6.10); WHITE BLOOD COUNT 7.8 10^3/uL (4.0-10.0)
[2018-12-16 06:40] LABS: CALCIUM LEVEL 8.4 MG/DL (8.8-10.2); CREATININE FOR GFR 2.58 MG/DL (0.70-1.30); GLOMERULAR FILTRATION RATE 26.3 (>42); POTASSIUM SERUM 4.4 MEQ/L (3.5-5.1)
[2018-12-16] MEDS: buPROPion (WELLBUTRIN SR) 100 MG SR TAB PO SCH (09:28)
[2018-12-16] MEDS: TAMSULOSIN 0.4 MG CAP PO SCH (09:28)
[2018-12-16] MEDS: APIXABAN 2.5 MG TAB (ELIQUIS) PO SCH ×2 (09:28→20:55)
[2018-12-16] MEDS: FERROUS SULFATE 325MG TAB PO SCH (09:28)
[2018-12-16] MEDS: AMIODARONE 200 MG TAB (PACERONE) PO SCH (09:28)
[2018-12-16] MEDS: OMEPRAZOLE 20 MG CAP PO SCH (09:28)
[2018-12-16] MEDS: HumaLOG INSULIN (NovoLOG) PER UNIT SC SCH ×4 (09:28→20:54)
[2018-12-16] MEDS: ESCITALOPRAM OXALATE 10 MG TAB (LEXAPRO) PO SCH (09:28)
[2018-12-16] MEDS: VITAMIN D 1,000 INTERNATIONAL UNITS TABLET PO SCH (09:28)
[2018-12-16] MEDS: PREGABALIN 75 MG CAP(LYRICA) PO SCH ×2 (09:29→20:55)
[2018-12-16] MEDS: NYSTATIN 100,000 UNITS/GM TOPICAL PWD 15 GM TOP SCH ×2 (09:29→20:55)
--- NOTE | 2018-12-16 11:08 | CR ---
DATE OF CONSULTATION: 12/16/2018 NEPHROLOGY CONSULTATION FOR: Rodo Benavides MD REASON FOR CONSULTATION: Acute renal failure superimposed on chronic kidney disease and decompensated congestive heart failure. HISTORY OF PRESENT ILLNESS: Mr. Mills is a 68-year-old gentleman, who is admitted to [facility] once again due to shortness of breath and weakness. He has been admitted a few times in last couple of months. In September, he was admitted with right hip fracture and underwent surgical intervention. He developed symptomatic bradycardia and was admitted in November, and at that time, he had pacemaker placement. He was then discharged to acute rehab from where he went home. He is now admitted again to medical floor with shortness of breath and found to have congestive heart failure and bilateral pleural effusions. The patient has known history of baseline chronic kidney disease with creatinine about 1.7-2.0 mg/dL at baseline. With diuresis, his creatinine increased to 2.5 today and a nephrology consultation was requested. The patient has not seen nephrology before. PAST MEDICAL AND SURGICAL HISTORY: Significant for: 1. History of coronary artery disease, status post coronary angioplasty with stent placement. 2. Atrial fibrillation on chronic anticoagulation. 3. Symptomatic bradycardia status post pacemaker placement. 4. History of type 2 diabetes. 5. History of diastolic congestive heart failure. 6. History of stage III of chronic kidney disease with baseline creatinine 1.7-2.0 mg/dL. 7. History of hyperlipidemia. 8. History of depression. 9. History of gastroesophageal reflux disease. 10. History of benign prostatic hypertrophy. Past surgical history is significant for: 1. Right hip fracture, status post open reduction, internal fixation (ORIF). 2. Pacemaker placement. 3. Prior history of coronary angioplasty with stents. MEDICATIONS: His current medications in the hospital include: - Mylanta 30 mL as needed for heartburn - amiodarone 200 mg daily - Eliquis 2.5 mg twice a day - Atrovent inhaler as needed - atorvastatin 10 mg at bedtime - Wellbutrin SR 100 mg daily - Lexapro 10 mg daily - ferrous sulfate 325 mg daily - furosemide 40 mg twice a day (which has been stopped this morning) - insulin Levemir 28 units at bedtime - Humalog per sliding scale - omeprazole 20 mg daily - Lyrica 150 mg twice a day - tamsulosin 0.4 mg daily - tramadol 50 mg twice a day - vitamin D 1000 units daily ALLERGIES: Patient has allergy to LATEX and PENICILLIN. PERSONAL AND SOCIAL HISTORY: Patient lives at home, and denies any alcohol or drug use. There is no history of active tobacco use. FAMILY HISTORY: Negative for end-stage renal disease. REVIEW OF SYSTEMS: The patient denies any fever or chills. He is feeling somewhat weak but more short of breath when he ambulates. Ears, nose and throat are unremarkable. Cardiovascular system is significant for diastolic congestive heart failure and coronary artery disease. The patient denies any chest pain but does report dyspnea on exertion. Respiratory system is negative for cough or hemoptysis. Gastrointestinal (GI) system is negative for vomiting or diarrhea. He does have history of gastroesophageal reflux disease. Genitourinary () system is negative for dysuria or hematuria. He has known history of benign prostatic hypertrophy (BPH). Endocrine system is significant for type 2 diabetes. Hematological system is significant for chronic anticoagulation due to atrial fibrillation. Neurological system is negative for seizures or stroke. Psychosocial system is significant for depression. Skin is negative for rash or ulcers. PHYSICAL EXAMINATION: Mr. Mills is sitting in the recliner chair at the time of my visit with his feet elevated. Temperature is 97.9 degrees Fahrenheit, heart rate 74 per minute and respiratory rate 18 per minute. Blood pressure 140/58 mmHg and oxygen saturation 97% on 2 liters oxygen. His head is atraumatic. Neck is supple and jugular venous distention (JVD) is markedly elevated up to about 15 cm above sternal angle. He has no oral thrush or ulcers. Ears, nose and throat are unremarkable. Heart exam reveals irregular rhythm without a pericardial friction rub. Lungs with diminished breath sounds and bibasilar rales. Abdomen: Soft and nontender, and bowel sounds are normal. There is no palpable organomegaly. Extremities have no cyanosis or clubbing. Neurologically, he is awake, alert and oriented times three. LABORATORY DATA: Today's labs show WBC count 7.8, hemoglobin 9.4 and hematocrit 30.7. Platelets 168. Sodium 137, potassium 4.4, CO2 of 32, BUN 65 and creatinine 2.58. A BNP level is 1136. Troponin less than 0.02. On admission, his BUN was 59 and creatinine 2.0. Previously, his creatinine has been between 1.7-2.0. He had a chest CT scan done on 12/12/2018, which is reviewed independently. He has bilateral pleural effusions and pulmonary congestion. PROBLEMS: 1. Acute renal failure superimposed on chronic kidney disease most likely a result of congestive heart failure. I will get a bladder scan to rule out any possibility of urinary retention. We will continue to diurese him as he is still clinically and radiologically decompensated. I am going to put him back on Lasix 40 mg every 8 hours and will try to get a negative fluid balance of about 1.5 liters per day. 2. Acute on chronic diastolic congestive heart failure. Patient remains clinically decompensated. Lasix 40 mg every 8 hours intravenously is being started. We will monitor his urine output. 3. Anemia. He does have chronic anemia with possible iron deficiency. He has been on chronic anticoagulation and I am going to check his iron studies. We will consider to give him Aranesp if iron studies are adequate. Thank you for involving me in the care of Mr. Mills. We will follow him along with you.
[2018-12-16 11:15] LABS: PERCENT SATURATION 8.7 % (19.7-50.0)
--- NOTE | 2018-12-16 11:38 | IPNPDOC ---
Text Note Date of Service The patient was seen on 12/16/18. NOTE S: Pt examined sitting up in chair. States he is feels almost back to his normal. Denies shortness of breath, but states his legs are still swollen. No f/c, n/v, abd pain. No reported events overnight. PE: General: NAD, A&O, resting comfortably HEENT: NCAT, EOMI, anicteric sclera, MMM CV: RRR, no murmurs RESP: b/l crackles, l>r. No wheezing or rhonchi. Able to speak in full sentences ABD: obese, soft, NT, ND. Benign EXTREMITIES: 2+ radial pulses b/l, able to move all extremities, 1+ pitting edema b/l NEURO: no deficits or acute changes A/P: 1. Acute hypoxemia Per PT, he was able to tolerate therapy without any supplemental O2, and maintained >90%. Is now back to baseline RA Likely multifactorial 2/2 decompensated CHF and atelectasis Blood cultures negative at 72hrs. Will dc Levaquin. Breathing continues to improve with diuresis Continue incentive spirometer Strict I's and O's, daily weights, elevate head of bed 2. Decompensated Diastolic CHF Overall, fluid status is gradually improving. Normally is on po Lasix 60 MG bid at home Continue diuresis with close monitoring of volume status and renal function 3. YULIANA on CKD III Baseline CR ~1.7. It continues to rise to 2.58 today despite IV diuresis Nephro has been consulted, appreciate their input He still able to make urine, with >1L output/day. E'lytes WNL Continue diuresis, possible cardiorenal syndrome 4. A. fib is controlled with amiodarone. Chronically on Eliquis 5. IDDM 2 with neuropathy continue Lyrica. ISS & Levemir inpt 6. CAD s/p PCI 7. HTN 8. HLD Continue Lipitor 9. Chronic AFib Chronically on Eliquis & Amiodarone 10. Depression Stable. Continue Lexapro & Bupropion 11. GERD Continue omeprazole 12. BPH Continue Flomax 13. Recent rt hip fracture from mechanical fall s/p ORIF. Continue Tramadol 14. History of Bradycardia s/p PPM placement DVT ppx: chronically Eliquis DISPO: pending clinical improvement, PT/OT VS,Sundar I+O VS, Fishbone, I+O Laboratory Tests 12/16/18 05:37 Red Blood Count 3.25 L, Mean Corpuscular Volume 94.5, Mean Corpuscular Hemoglobin 28.9, Mean Corpuscular Hemoglobin Concent 30.6 L, Red Cell Distribution Width 15.0 H, Calcium Level 8.4 L Vital Signs Date Time Temp Pulse Resp B/P (MAP) Pulse Ox O2 Delivery O2 Flow Rate FiO2 12/16/18 06:00 97.9 74 18 141/68 (92) 97 2.0 12/13/18 21:00 28 12/13/18 02:56 Nasal Cannula I&O- Last 24 Hours up to 6 AM 12/16/18 06:00 Intake Total 1340 ml Output Total 1150 ml Balance 190 ml GME ATTESTATION GME ATTESTATION My faculty preceptor for this patient encounter was physically present during the encounter and was fully available. All aspects of the patient interview, examination, medical decision making process, and medical care plan development were reviewed and approved by the faculty preceptor. The faculty preceptor is aware and concurs with the plan as stated in the body of this note and will attest to such by his/her cosignature. ISAIAS STOKES DO Dec 16, 2018 11:38
[2018-12-16] MEDS: FUROSEMIDE 40 MG/4 ML VIAL (J1940) IV SCH ×2 (11:40→18:47)
[2018-12-16 14:00] VITALS: BP 145/72
[2018-12-16] MEDS: LEVEMIR (INSULIN DETEMIR) 1 UNITS/0.01ML SC SCH (20:54)
[2018-12-16] MEDS: ATORVASTATIN 10 MG TAB PO SCH (20:55)
[2018-12-16 22:00] VITALS: BP 116/64
[2018-12-17] MEDS: FUROSEMIDE 40 MG/4 ML VIAL (J1940) IV SCH (03:29)
[2018-12-17 06:00] VITALS: BP 139/67
[2018-12-17 06:22] LABS: HEMATOCRIT 30.9 % (42.0-52.0); HEMOGLOBIN 9.4 g/dl (13.5-17.5); MEAN CORPUSCULAR HEMOGLOBIN 28.1 pg (27.0-33.0); MEAN CORPUSCULAR HGB CONC 30.4 g/dl (32.0-36.5); MEAN CORPUSCULAR VOLUME 92.5 fl (80.0-96.0); PLATELET COUNT, AUTOMATED 181 10^3/uL (150-450); RED BLOOD COUNT 3.34 10^6/uL (4.30-6.10); WHITE BLOOD COUNT 8.2 10^3/uL (4.0-10.0)
[2018-12-17 06:35] LABS: CALCIUM LEVEL 8.2 MG/DL (8.8-10.2); CREATININE FOR GFR 2.93 MG/DL (0.70-1.30); GLOMERULAR FILTRATION RATE 22.7 (>42); POTASSIUM SERUM 4.7 MEQ/L (3.5-5.1)
[2018-12-17] MEDS: LEVEMIR (INSULIN DETEMIR) 1 UNITS/0.01ML SC SCH ×2 (09:01→22:29)
[2018-12-17] MEDS: HumaLOG INSULIN (NovoLOG) PER UNIT SC SCH ×4 (09:01→21:00)
[2018-12-17] MEDS: PREGABALIN 75 MG CAP(LYRICA) PO SCH ×2 (09:02→22:30)
[2018-12-17] MEDS: VITAMIN D 1,000 INTERNATIONAL UNITS TABLET PO SCH (09:02)
[2018-12-17] MEDS: ESCITALOPRAM OXALATE 10 MG TAB (LEXAPRO) PO SCH (09:02)
[2018-12-17] MEDS: AMIODARONE 200 MG TAB (PACERONE) PO SCH (09:02)
[2018-12-17] MEDS: TAMSULOSIN 0.4 MG CAP PO SCH (09:02)
[2018-12-17] MEDS: NYSTATIN 100,000 UNITS/GM TOPICAL PWD 15 GM TOP SCH ×2 (09:02→22:31)
[2018-12-17] MEDS: FERROUS SULFATE 325MG TAB PO SCH (09:02)
[2018-12-17] MEDS: OMEPRAZOLE 20 MG CAP PO SCH (09:02)
[2018-12-17] MEDS: APIXABAN 2.5 MG TAB (ELIQUIS) PO SCH ×2 (09:03→22:30)
[2018-12-17] MEDS: buPROPion (WELLBUTRIN SR) 100 MG SR TAB PO SCH (09:03)
--- NOTE | 2018-12-17 09:30 | IPNPDOC ---
Text Note Date of Service The patient was seen on 12/17/18. NOTE S: Pt examined sitting up in chair. States he feels better and has no new complaints. Breathing is improving, but he continues on supplemental O2. On RA at baseline. No cough, wheezing, f/c. PE: General: NAD, A&O, resting comfortably HEENT: NCAT, EOMI, anicteric sclera, MMM CV: RRR, no murmurs RESP: b/l crackles. No wheezing or rhonchi. Able to speak in full sentences ABD: obese, soft, NT, ND. Benign EXTREMITIES: 2+ radial pulses b/l, able to move all extremities, 2+ pitting edema b/l LE up the thighs and hips NEURO: no deficits or acute changes A/P: 1. Acute hypoxemia 2/2 decompensated CHF and atelectasis is back on supplemental O2 at 2L this am, whereas he is on RA at baseline breathing subjectively improving with diuresis, but overall still hypervolemic Continue incentive spirometer, strict I's and O's, daily weights, elevate head of bed 2. Decompensated Diastolic CHF Continues to be hypervolemic and put out only 1L yesterday. Increase diuresis with close monitoring of volume status and renal function 3. YULIANA on CKD III continues to worsen, up to 2.93 today, whereas baseline CR ~1.7 Nephro consulted, appreciate input plan to increase diuresis, 80mg q8h of IV Lasix starting today He still able to make urine, with >1L output/day. E'lytes WNL Continue diuresis, possible cardiorenal syndrome 4. A. fib is controlled with amiodarone. Chronically on Eliquis 5. IDDM 2 with neuropathy continue Lyrica. ISS & Levemir inpt 6. CAD s/p PCI 7. HTN 8. HLD Continue Lipitor 9. Chronic AFib Chronically on Eliquis & Amiodarone 10. Depression Stable. Continue Lexapro & Bupropion 11. GERD Continue omeprazole 12. BPH Continue Flomax 13. Recent rt hip fracture from mechanical fall s/p ORIF. Continue Tramadol 14. History of Bradycardia s/p PPM placement 15. Anemia of chronic ds anemia w/u noted. Likely is 2/2 underlying CKD H&H stable, no overt bleeding DVT ppx: chronically Eliquis DISPO: pending clinical improvement, PT/OT VS,Fishbone, I+O VS, Fishbone, I+O Laboratory Tests 12/17/18 05:57 Red Blood Count 3.34 L, Mean Corpuscular Volume 92.5, Mean Corpuscular Hemoglobin 28.1, Mean Corpuscular Hemoglobin Concent 30.4 L, Red Cell Distr ibution Width 15.0 H, Calcium Level 8.2 L Vital Signs Date Time Temp Pulse Resp B/P (MAP) Pulse Ox O2 Delivery O2 Flow Rate FiO2 12/17/18 06:00 97.8 80 18 139/67 (91) 97 2.0 12/13/18 21:00 28 12/13/18 02:56 Nasal Cannula I&O- Last 24 Hours up to 6 AM 12/17/18 06:00 Intake Total 1440 ml Output Total 676 ml Balance 764 ml GME ATTESTATION GME ATTESTATION My faculty preceptor for this patient encounter was physically present during the encounter and was fully available. All aspects of the patient interview, examination, medical decision making process, and medical care plan development were reviewed and approved by the faculty preceptor. The faculty preceptor is aware and concurs with the plan as stated in the body of this note and will attest to such by his/her cosignature. ISAIAS STOKES DO Dec 17, 2018 09:18
[2018-12-17] MEDS: FUROSEMIDE 100 MG/10 ML VIAL (J1940) IV SCH ×2 (11:49→18:03)
[2018-12-17 14:00] VITALS: BP 95/60
[2018-12-17 15:25] VITALS: BP 101/61
--- NOTE | 2018-12-17 16:57 | IPN ---
DATE: 12/17/2018 Mr. Mills is seen this morning on his bedside. He was placed on IV Lasix drip yesterday. However did not respond very well. He is still short of breath particularly when he gets up. He is oxygenating only about 90%. Yesterday his urine output was only 776 mL with intake of 1610 and a positive fluid balance of 834. The bladder scan was done and bladder was found to be empty. He reports that she has not voided since morning today. His chest CT scan did show bilateral pleural effusions and initial chest x-ray also showed pulmonary vascular congestion and cardiomegaly. PHYSICAL EXAMINATION: Temperature 97.8 degrees Fahrenheit, heart rate 80 per minute and respiratory rate 18 per minute. Blood pressure 139/67 mmHg and oxygen saturation 93%. Head is atraumatic. Neck veins are somewhat difficult to be assessed. There is no oral thrush or ulcers. Heart: Sounds are regular and lungs with diminished breath sounds bilaterally. Abdomen: Obese, soft and nontender and without a palpable organomegaly. Extremities: Have no cyanosis or clubbing. Neurologically he is awake, alert and oriented times three. Today's labs show sodium 137, potassium 4.7, CO2 of 31, BUN 76 and creatinine 2.93. Glucose 172 and calcium 8.2. WBC count is 8.2, hemoglobin 9.4 and hematocrit 30.9. Platelets 181. PROBLEMS: 1. Acute renal failure superimposed on chronic kidney disease. His admission creatinine was 2.0 and BUN 59. He has minimal urine output now and his BUN and creatinine have been increasing every day since admission. He did not respond to Lasix 40 mg every 8 hours given for last 24 hours. His electrolytes are stable and he does not have any metabolic acidosis. We will continue to watch his renal function closely. 2. Congestive heart failure and bilateral pleural effusions. The patient is not responding to Lasix 40 mg every 8 hours. I am going to increase the dose to 80 mg every 8 hours and see how he does. I will also repeat a chest x-ray and also get a renal ultrasound today. So far there is no emergent indication for dialysis as he is oxygenating reasonably well with oxygen supplementation. His electrolytes are stable. 3. Anemia. His anemia is stable and does not need any urgent intervention at present. 4. Hypertension. Blood pressure is somewhat on the low side. He is not receiving any antihypertensive other than diuretics. We will continue to watch. 5. Atrial fibrillation, ventricular rate is very well controlled and he remains on amiodarone, Eliquis.
--- NOTE | 2018-12-17 17:26 | REP ---
Clinical: Acute renal failure. Technique: Real time chavez scale ultrasound examination using curved array transducer. Findings: The kidneys are normal in reniform shape and size without hydronephrosis and demonstrate cortical thinning and increased central sinus fat consistent with chronic medical renal disease. No nephrolithiasis, cystic or renal mass lesion. Right kidney measures 11.9 x 6.2 x 6.6 cm. Left kidney measures 12.2 x 6.2 x 7.1 cm. Incidental small amount of ascites in the right flank noted. Impression: 1. Chronic medical renal disease without hydronephrosis. Electronically Signed by Donnie Torrez MD 12/17/2018 05:18 P
--- NOTE | 2018-12-17 17:28 | REP ---
Clinical: CHF. Technique: PA and lateral. Comparison: 12/12/2018. Findings: Cardiomegaly with pulmonary vascular congestion, interstitial edema, and bilateral opacities suggesting elements of atelectasis and moderate pleural effusions. Findings are consistent with the given history of CHF. Dual lead pacemaker in stable position. No pneumothorax. Skeletal structures intact. Impression: Cardiomegaly and CHF with bibasilar opacities and moderate pleural effusions. Electronically Signed by Donnie Torrez MD 12/17/2018 05:19 P
[2018-12-17] MEDS: ATORVASTATIN 10 MG TAB PO SCH (22:30)
[2018-12-18] MEDS: FUROSEMIDE 100 MG/10 ML VIAL (J1940) IV SCH ×3 (02:51→20:23)
[2018-12-18 06:00] VITALS: BP 123/75
[2018-12-18 06:12] LABS: HEMATOCRIT 29.8 % (42.0-52.0); HEMOGLOBIN 9.3 g/dl (13.5-17.5); MEAN CORPUSCULAR HGB CONC 31.2 g/dl (32.0-36.5); MEAN CORPUSCULAR VOLUME 92.8 fl (80.0-96.0); PLATELET COUNT, AUTOMATED 181 10^3/uL (150-450); RED BLOOD COUNT 3.21 10^6/uL (4.30-6.10); WHITE BLOOD COUNT 8.9 10^3/uL (4.0-10.0)
[2018-12-18 06:25] LABS: CALCIUM LEVEL 8.4 MG/DL (8.8-10.2); CREATININE FOR GFR 3.26 MG/DL (0.70-1.30); GLOMERULAR FILTRATION RATE 20.1 (>42); POTASSIUM SERUM 4.2 MEQ/L (3.5-5.1)
[2018-12-18] MEDS: APIXABAN 2.5 MG TAB (ELIQUIS) PO SCH ×2 (08:43→20:23)
[2018-12-18] MEDS: TAMSULOSIN 0.4 MG CAP PO SCH (08:43)
[2018-12-18] MEDS: OMEPRAZOLE 20 MG CAP PO SCH (08:43)
[2018-12-18] MEDS: ESCITALOPRAM OXALATE 10 MG TAB (LEXAPRO) PO SCH (08:43)
[2018-12-18] MEDS: FERROUS SULFATE 325MG TAB PO SCH (08:43)
[2018-12-18] MEDS: AMIODARONE 200 MG TAB (PACERONE) PO SCH (08:43)
[2018-12-18] MEDS: HumaLOG INSULIN (NovoLOG) PER UNIT SC SCH ×4 (08:43→20:41)
[2018-12-18] MEDS: LEVEMIR (INSULIN DETEMIR) 1 UNITS/0.01ML SC SCH ×2 (08:44→20:24)
[2018-12-18] MEDS: PREGABALIN 75 MG CAP(LYRICA) PO SCH (08:44)
[2018-12-18] MEDS: buPROPion (WELLBUTRIN SR) 100 MG SR TAB PO SCH (08:44)
[2018-12-18] MEDS: NYSTATIN 100,000 UNITS/GM TOPICAL PWD 15 GM TOP SCH ×2 (08:44→20:41)
[2018-12-18] MEDS: VITAMIN D 1,000 INTERNATIONAL UNITS TABLET PO SCH (08:44)
[2018-12-18 11:13] LABS: AMORPHOUS SEDIMENT SMALL (NEGATIVE); APPEARANCE, URINE HAZY (CLEAR); BACTERIA, URINE AUTO NEGATIVE (NEGATIVE); BILIRUBIN, URINE AUTO NEGATIVE (NEGATIVE); BLOOD, URINE BLOOD NEGATIVE (NEGATIVE); COLOR, URINE YELLOW (YELLOW); GLUCOSE, URINE (UA) AUTO NEGATIVE (NEGATIVE); KETONE, URINE AUTO NEGATIVE (NEGATIVE); LEUKOCYTE ESTERASE, URINE AUTO TRACE (NEGATIVE); NITRITE, URINE AUTO NEGATIVE (NEGATIVE); PROTEIN, URINE AUTO NEGATIVE (NEGATIVE); RBC, URINE AUTO 1 /HPF (0-3); SPECIFIC GRAVITY URINE AUTO 1.011 (1.002-1.035); SQUAMOUS EPITHELIAL CELL UR AU 0 /HPF (0-6); UROBILINOGEN, URINE AUTO 0.2 mg/dL (0.0-2.0); WBC, URINE AUTO 4 /HPF (0-3)
[2018-12-18 13:13] LABS: CHOLESTEROL LEVEL 57 MG/DL (<200); CHOLESTEROL RISK RATIO 2.035 (<5); HDL CHOLESTEROL 28 MG/DL (>40); LDL CHOLESTEROL 19 MG/DL (<100); NON-HDL-C 29 MG/DL; TRIGLYCERIDES LEVEL 48 MG/DL (<150)
[2018-12-18 14:00] VITALS: BP 107/65
[2018-12-18 14:18] LABS: HEMOGLOBIN A1c 7.8 %
--- NOTE | 2018-12-18 14:32 | IPNPDOC ---
Text Note Date of Service The patient was seen on 12/18/18. NOTE S: Pt examined at bedside. [place] sob overnight, requiring him to go back on O2, whereas he is on RA at baseline. Continues to be fluid overloaded and only diuresed 475ml yesterday. No other complaints today. No cough, wheezing, f/c. PE: General: NAD, A&O, resting comfortably HEENT: NCAT, EOMI, anicteric sclera, MMM CV: RRR, no murmurs RESP: b/l crackles. No wheezing or rhonchi. Able to speak in full sentences ABD: obese, soft, NT, ND. Benign EXTREMITIES: 2+ radial pulses b/l, able to move all extremities, 2+ pitting edema b/l LE up the thighs and hips NEURO: no deficits or acute changes A/P: 1. Acute hypoxemia 2/2 decompensated CHF and atelectasis continues on supplemental O2, whereas he is on RA at baseline will require additional fluid removal to assist with breathing. Repeat CXR reveals moderate pleural effusions still present Continue incentive spirometer, strict I's and O's, daily weights, elevate head of bed 2. Decompensated Diastolic CHF Only diuresed <500ml yesterday despite aggressive doses. UA and renal US unrevealing for any intrinsic renal disease will require large amounts of fluid removal and diuresis as he continues to be hypervolemic pt viramontes been updated that he may ultimately require dialysis soon given his fluid imbalance coincided with worsening renal failure nephro on board and adjusting diuresis 3. YULIANA on CKD III continues to worsen, up to 3.26 today, whereas baseline CR ~1.7 possible dialysis in the near future if renal function does not improve. Urine o/p has started to decline as well Nephro consulted, appreciate input. Adjusting diuretics 4. A. fib is controlled with amiodarone. Chronically on Eliquis 5. IDDM 2 with neuropathy continue Lyrica. ISS & Levemir inpt 6. CAD s/p PCI 7. HTN 8. HLD Continue Lipitor 9. Chronic AFib Chronically on Eliquis & Amiodarone 10. Depression Stable. Continue Lexapro & Bupropion 11. GERD Continue omeprazole 12. BPH Continue Flomax 13. Recent rt hip fracture from mechanical fall s/p ORIF 14. History of Bradycardia s/p PPM placement 15. Anemia of chronic ds anemia w/u noted. Likely is 2/2 underlying CKD H&H stable, no overt bleeding DVT ppx: chronically Eliquis DISPO: pending clinical improvement, PT/OT VS,Fishbone, I+O VS, Fishbone, I+O Laboratory Tests 12/18/18 05:43 Red Blood Count 3.21 L, Mean Corpuscular Volume 92.8, Mean Corpuscular Hemoglobin 29.0, Mean Corpuscular Hemoglobin Concent 31.2 L, Red Cell Distribution Width 15.0 H, Calcium Level 8.4 L Vital Signs Date Time Temp Pulse Resp B/P (MAP) Pulse Ox O2 Delivery O2 Flow Rate FiO2 12/18/18 06:00 97.0 70 18 123/75 (91) 97 12/17/18 09:00 1.0 12/13/18 21:00 28 12/13/18 02:56 Nasal Cannula I&O- Last 24 Hours up to 6 AM 12/18/18 06:00 Intake Total 1000 ml Output Total 750 ml Balance 250 ml GME ATTESTATION GME ATTESTATION My faculty preceptor for this patient encounter was physically present during the encounter and was fully available. All aspects of the patient interview, examination, medical decision making process, and medical care plan development were reviewed and approved by the faculty preceptor. The faculty preceptor is aware and concurs with the plan as stated in the body of this note and will attest to such by his/her cosignature. ISAIAS STOKES DO Dec 18, 2018 14:31
[2018-12-18] MEDS: ATORVASTATIN 10 MG TAB PO SCH (20:23)
[2018-12-18 22:00] VITALS: BP 119/75
[2018-12-19 06:00] VITALS: BP 128/75
[2018-12-19 06:14] LABS: HEMATOCRIT 29.6 % (42.0-52.0); HEMOGLOBIN 9.1 g/dl (13.5-17.5); MEAN CORPUSCULAR HEMOGLOBIN 28.3 pg (27.0-33.0); MEAN CORPUSCULAR HGB CONC 30.7 g/dl (32.0-36.5); MEAN CORPUSCULAR VOLUME 92.2 fl (80.0-96.0); PLATELET COUNT, AUTOMATED 185 10^3/uL (150-450); RED BLOOD COUNT 3.21 10^6/uL (4.30-6.10); WHITE BLOOD COUNT 7.6 10^3/uL (4.0-10.0)
[2018-12-19 06:53] LABS: CALCIUM LEVEL 8.4 MG/DL (8.8-10.2); CREATININE FOR GFR 3.52 MG/DL (0.70-1.30); GLOMERULAR FILTRATION RATE 18.4 (>42); POTASSIUM SERUM 4.4 MEQ/L (3.5-5.1)
[2018-12-19] MEDS: APIXABAN 2.5 MG TAB (ELIQUIS) PO SCH ×2 (08:47→20:40)
[2018-12-19] MEDS: PREGABALIN 75 MG CAP(LYRICA) PO SCH (08:48)
[2018-12-19] MEDS: ESCITALOPRAM OXALATE 10 MG TAB (LEXAPRO) PO SCH (08:48)
[2018-12-19] MEDS: TAMSULOSIN 0.4 MG CAP PO SCH (08:48)
[2018-12-19] MEDS: FERROUS SULFATE 325MG TAB PO SCH (08:48)
[2018-12-19] MEDS: VITAMIN D 1,000 INTERNATIONAL UNITS TABLET PO SCH (08:48)
[2018-12-19] MEDS: buPROPion (WELLBUTRIN SR) 100 MG SR TAB PO SCH (08:48)
[2018-12-19] MEDS: OMEPRAZOLE 20 MG CAP PO SCH (08:48)
[2018-12-19] MEDS: AMIODARONE 200 MG TAB (PACERONE) PO SCH (08:48)
[2018-12-19] MEDS: FUROSEMIDE 100 MG/10 ML VIAL (J1940) IV SCH ×2 (08:49→20:40)
[2018-12-19] MEDS: HumaLOG INSULIN (NovoLOG) PER UNIT SC SCH ×4 (08:50→20:39)
[2018-12-19] MEDS: LEVEMIR (INSULIN DETEMIR) 1 UNITS/0.01ML SC SCH ×2 (08:51→20:39)
[2018-12-19] MEDS: NYSTATIN 100,000 UNITS/GM TOPICAL PWD 15 GM TOP SCH ×2 (08:51→20:41)
--- NOTE | 2018-12-19 09:01 | IPN ---
DATE: 12/18/2018 SUBJECTIVE: Patient was seen and examined at the bedside today morning. Patient was drowsy and sleepy. Answers very few questions. Laying in the bed. Renal function continues to deteriorate. He is currently being diuresed for congestive heart failure (CHF) exacerbation. Creatinine is bumped up to 3.2 today. Patient is not responding very well to the IV diuretics. OBJECTIVE: VITAL SIGNS: Temperature is 96.7 degrees Fahrenheit, blood pressure 107/65, pulse is 75, respiratory rate of 20, saturating 94% on room nasal cannula at 2 liters. Intake and output: Urine output recorded as 475 mL yesterday, 725 mL so far today since overnight. Weight on the bed scale is 123.5 kg. PHYSICAL EXAMINATION: GENERAL: Patient is drowsy and sleepy. Arousable on loud vocal commands. HEAD/NECK: Extraocular muscles intact. Pupils equally round and reactive to light. Mucous membranes are dry. Neck is supple. I could not appreciate jugular venous distention (JVD). CARDIOVASCULAR: S1, S2. 2+ edema of the bilateral lower extremities up to thighs. RESPIRATORY: Decreased breath sounds at the bases with mild crepitations on deep respiration. ABDOMEN: Soft. Obese. Positive bowel sounds. Nontender. No organomegaly. GENITOURINARY: Bladder is not palpable. I got the bed side bladder scan done and urine in the bladder was less than 100 mL. MUSCULOSKELETAL: No clubbing or cyanosis. 2+ edema of the bilateral lower extremities as mentioned above. CENTRAL NERVOUS SYSTEM: Patient has asterixis. He cannot do simple mathematic and he is drowsy and obtunded. LAB REVIEW: CBC showed a WBC of 8.9, hemoglobin is 9.3, platelets are 181. Urinalysis done today morning showed no protein, no blood. BMP done today morning showed sodium 133, potassium 4.2, chloride 96, bicarbonate is 30, BUN 93, creatinine is 3.2. A1c 7.8. Ammonia level is 16. IMAGING: Renal ultrasound was done yesterday. It showed chronic medical renal disease without hydronephrosis. CURRENT INPATIENT MEDICATIONS: Patient's medications are all reviewed by me. I have decreased the IV Lasix dose to 80 mg IV twice a day. I have decreased the Lyrica to 75 mg by mouth daily only. I have stopped the tramadol. No other change in the medications today as compared with yesterday. ASSESSMENT AND PLAN: 1. Acute renal failure superimposed on chronic kidney disease. Patient continues to be oliguric despite being on high dose of diuretics. He has high BUN, evidence of asterixis. He has early signs of uremia now. I am going to decrease the diuretics as there is very high likelihood that the patient would need dialysis over the next 24 to 48 hours. I discussed the possibility of dialysis with him and he agrees to undergo dialysis. If renal function does not show any evidence of improvement, then he will get the tunneled dialysis catheter placement. 2. Acute decompensated diastolic congestive heart failure. Patient was on high dose of diuretics and despite that his volume status is not optimal. He still has evidence of lower extremity edema. Because of possible development of uremia, I have decreased the diuretic dose. Continue the Lasix 80 mg IV twice a day for now. 3. Atrial fibrillation. Heart rate is controlled at this point. Continue current dose of Eliquis 2.5 mg by mouth twice a day. Okay to continue amiodarone. 4. Peripheral neuropathy. Patient is in oliguric renal failure with rising creatinine. Because of metabolic encephalopathy, I am decreasing the Lyrica to 75 mg by mouth daily. Okay to continue bupropion and Lexapro at this point. 5. Anemia and chronic kidney disease. Hemoglobin is 9.3, which is suboptimal. If patient starts dialysis I will start the patient on Aranesp as well.
[2018-12-19] MEDS ORDERED: IRON SUCROSE 100MG 5ML VIAL (J1756 PER 1MG) IV SCH (12:45)
[2018-12-19 14:00] VITALS: BP 114/65
--- NOTE | 2018-12-19 16:05 | IPNPDOC ---
Subjective Date Seen The patient was seen on 12/19/18. Subjective Chief Complaint/HPI Patient seen and examined at the bedside. His renal function continues to decline this morning. The patient denies any acute complaints, and notes that his respiratory status has not gotten any better or worse since starting IV diuretic therapy. The patient has been scheduled for a perma catheter placement for initiation of dialysis by nephrology. Objective Physical Examination General Exam: Positive: Alert, Cooperative, No Acute Distress ENT Exam: Positive: Atraumatic Chest Exam: Positive: Diminished Heart Exam: Positive: Rate Normal, Normal S1, Normal S2 Abdomen Exam: Positive: Soft; Negative: Tenderness Extremity Exam: Positive: Swelling (2+ pitting edema in the lower extremities B/L); Negative: Tenderness Psych Exam: Positive: Oriented x 3 Assessment /Plan Plan/VTE VTE Prophylaxis Ordered?: Yes Plan Acute hypoxemia 2/2 decompensated CHF and atelectasis Continues on supplemental O2, not on O2 at baseline Patient's volume status has not improved despite IV diuretic therapy, and his renal function has worsened He has been tentatively scheduled to have a Perma Cath placed tomorrow for initiation of dialysis Acute renal failure 2/2 Above Nephro on board--patient being initiated for dialysis A. fib Cont amiodarone On Eliquis for AC IDDM 2 with neuropathy Continue Lyrica. ISS & Levemir inpt CAD s/p PCI HTN HLD Continue Lipitor Depression Continue Lexapro & Bupropion GERD Continue omeprazole BPH Continue Flomax Recent rt hip fracture from mechanical fall s/p ORIF History of Bradycardia s/p PPM placement Anemia of chronic disease H&H stable, no overt bleeding Will transfuse as needed DVT prophylaxis On Eliquis DISPO: pending clinical improvement. VS, I&O, 24H, Fishbone Vital Signs/I&O Vital Signs Date Time Temp Pulse Resp B/P (MAP) Pulse Ox O2 Delivery O2 Flow Rate FiO2 12/19/18 14:00 96.8 70 20 114/65 (81) 96 2.0 12/13/18 21:00 28 12/13/18 02:56 Nasal Cannula I&O- Last 24 Hours up to 6 AM 12/19/18 06:00 Intake Total 1530 ml Output Total 975 ml Balance 555 ml Laboratory Data 24H LABS Laboratory Tests 2 12/18/18 16:44: Bedside Glucose (Misc Panel) 212H 12/18/18 19:44: Bedside Glucose (Misc Panel) 249H 12/19/18 05:23: Nucleated Red Blood Cells % (auto) 0.0, Anion Gap 8, Glomerular Filtration Rate 18.4L, Blood Urea Nitrogen 96H, Creatinine 3.52H, Sodium Level 133L, Potassium Level 4.4, Chloride Level 95L, Carbon Dioxide Level 30, Calcium Level 8.4L CBC/BMP Laboratory Tests 12/19/18 05:23 Red Blood Count 3.21 L, Mean Corpuscular Volume 92.2, Mean Corpuscular Hemoglobin 28.3, Mean Corpuscular Hemoglobin Concent 30.7 L, Red Cell Distribution Width 15.2 H, Calcium Level 8.4 L Microbiology Microbiology 12/12/18 Blood Culture - Final, Complete NO GROWTH AFTER 5 DAYS 12/12/18 Blood Culture - Final, Complete NO GROWTH AFTER 5 DAYS MICHA VERGARA MD Dec 19, 2018 16:05
[2018-12-19] MEDS: ATORVASTATIN 10 MG TAB PO SCH (20:40)
[2018-12-19 22:00] VITALS: BP 102/63
--- NOTE | 2018-12-19 22:16 | IPN ---
DATE: 12/19/2018 SUBJECTIVE: The patient was seen and examined at the bedside today morning. The patient is slightly more awake and alert today as compared with yesterday. His pain medication doses were decreased yesterday and his Lasix was also cut down. However, I do not see any improvement in the renal function. Creatinine is still bumping up to 3.5 today. The patient's nurse reported that he has decreased appetite. He did not eat breakfast today morning. OBJECTIVE: VITAL SIGNS: Temperature is 96.8 degrees Fahrenheit. Blood pressure 128/75, pulse is 79, respiratory rate of 17, saturating 96% on 2 liters by nasal canula. Intake and output: Urine output recorded as 1 liter yesterday, 225 mL so far today since overnight. Weight in the bed scale is not available. PHYSICAL EXAMINATION: GENERAL: The patient is drowsy, but he is more alert today as compared with yesterday. He is oriented times two. HEAD AND NECK EXAM: Extraocular muscles intact. Pupils equally round and reactive to light. Mucous membranes are dry. Neck is supple. I could not appreciate jugular venous distension (JVD). CARDIOVASCULAR: S1, S2, 2+ edema of the bilateral lower extremities up to thighs. RESPIRATORY: Decreased breath sounds at the bases with mild crepitations on deep inspiration. ABDOMEN: Soft, obese, positive bowel sounds. Nontender, no organomegaly. GENITOURINARY: Bladder is nonpalpable. MUSCULOSKELETAL: No clubbing or cyanosis. 2+ edema of the lower extremities. CENTRAL NERVOUS SYSTEM: He is oriented times two. He follows commands and answer questions, but he does have asterixis. LABORATORY REVIEW: Complete blood count (CBC) showed a white blood count (WBC) of 7.6, hemoglobin 9.1, platelets of 185. Basic metabolic panel (BMP) showed sodium 133, potassium 4.4, chloride 95, bicarbonate is 30, BUN 96, creatinine is 3.5, calcium 8.4. CURRENT INPATIENT MEDICATIONS: The patient's medications are all reviewed by me. His insulin Levemir dose has been changed to 28 units at night and 15 units in the morning. His Lyrica was already changed to 75 mg by mouth daily. ASSESSMENT AND PLAN: 1. Acute renal failure superimposed on chronic kidney disease. The patient's renal function continues to deteriorate. Creatinine is up to 3.5 now. His BUN is 96. I discussed the hemodialysis with him today. The patient is agreeing to start the hemodialysis. I have requested the vascular surgery to place a tunneled hemodialysis catheter tomorrow morning. The patient will be dialyzed tomorrow morning after he gets his catheter. 2. Acute decompensated diastolic congestive heart failure. Volume status is still suboptimal. I will continue the current dose of diuretic which is furosemide 80 mg twice a day IV. The rest of the volume management will be done with hemodialysis tomorrow. Continue to monitor intake and output. 3. Atrial fibrillation. Heart rate is controlled. Continue amiodarone and Eliquis. 4. Anemia and renal failure. Hemoglobin is 9.1. His iron levels are low. I am going to start him on iron with dialysis and he can't receive Aranesp because of latex allergy. MTDD
[2018-12-20 06:00] VITALS: BP 110/72
[2018-12-20 06:10] LABS: MEAN CORPUSCULAR HEMOGLOBIN 28.5 pg (27.0-33.0); MEAN CORPUSCULAR VOLUME 91.8 fl (80.0-96.0); PLATELET COUNT, AUTOMATED 193 10^3/uL (150-450); RED BLOOD COUNT 3.16 10^6/uL (4.30-6.10); WHITE BLOOD COUNT 6.8 10^3/uL (4.0-10.0)
[2018-12-20 06:28] LABS: CREATININE FOR GFR 3.4 MG/DL (0.70-1.30); GLOMERULAR FILTRATION RATE 19.2 (>42); POTASSIUM SERUM 4.3 MEQ/L (3.5-5.1)
[2018-12-20] MEDS: HumaLOG INSULIN (NovoLOG) PER UNIT SC SCH ×4 (07:30→21:19)
[2018-12-20] MEDS ORDERED: LIDOCAINE 2% MDV 20 ML VIAL As Ordered ONE (07:32)
[2018-12-20] MEDS ORDERED: BUPIVACAINE HCL 0.5% 10 ML VIAL As Ordered ONE (07:32)
[2018-12-20] MEDS ORDERED: HEPARIN 1,000 UNITS/ML 10ML VIAL (FOR RADIOLOGY& DIALYSIS ONLY) As Ordered ONE (07:32)
[2018-12-20] MEDS: LEVEMIR (INSULIN DETEMIR) 1 UNITS/0.01ML SC SCH ×2 (09:00→21:20)
--- NOTE | 2018-12-20 09:56 | CR.PDOC ---
General Date of Consultation: Dec 20, [address] Sanchez. CONSULTATION REPORT FOR: Dr Benavides REASON FOR CONSULTATION: HPI: 68year old M admitted to [facility] 12/13/18 related to Acute respiratory failure related to decompensated CHF, with acute renal failure. Nephrology was consulted and has been managing fluid status and diuretic, however discussion was held 12/19/18 re proceeding with HD 12/20/18. Vascular surgery is consulted to assist with HD access. No acute medical complaints today. Breathing currently comfortable. Denies any fevers, chills, weakness, fatigue, Headache, Chest Pain, palpitations, abdominal pain, N/V/D or changes in bowel or bladder habits. PMHx: HTN HLD CAD GERD CHF TTE 09/28/18 EF 65%, DD. PAF, on Eliquis/Amiodarone Mobitz type type second degree heart block s/p PPM placement 12/06/18. CKD stage 3 generalized deconditioning and functional debility and gait instability with Fall at home Anxiety and depression Diabetes with neuropathy BPH Anemia of chronic disease and iron deficiency. PSHX: Cholecystectomy. CAD with stent placement 2000. mechanical fall S/P Rt hip ORIF 09/30/18 pacemaker 12/06/18 SOCHX: Resides in: recently at [facility] rehab, lives with granddaughter Marital Status: Tobacco use: ex smoker ETOH: denies FAMILY HISTORY: Mom with brain cancer and son with COPD ROS: As noted in HPI, otherwise 11pt ROS of systems reviewed and unremarkable. PE: GEN: 68yoM, appears stated age. No acute distress. Alert and oriented x 3. HEENT: Normocephalic, atraumatic. No facial asymmetry. Moist mucous membranes. CHEST: Regular rate and rhythm, +S1, +S2 LUNGS: Insp rales bilaterally. No wheezes,or rhonchi. ABD: Round, soft, non-tender, non-distended. EXT: B/L lower extremity edema appreciated. SKIN: [place], dry, warm. No rashes. NEURO: Alert and oriented x 3. No focal deficits appreciated. A&P: 68year old M admitted to [facility] 12/13/18 related to Acute respiratory failure related to decompensated CHF, with acute renal failure. Nephrology was consulted and has been managing fluid status and diuretic, however discussion was held 12/19/18 re proceeding with HD and the pt subsequently agreed. vascular surgery consulted to assist with HD access. 1. ARF on CKD3. Mgmt as per Nephrology. The pt is reviewed and examined as per Dr Sanchez. Plan for Permacath this AM as per Dr Sanchez. Pt will go for vein mapping with plan for AVF. 2. Decompensated Diastolic CHF. S/P IV Lasix as per nephrology. Plan is to proceed with HD. 3. CAD. 4. PAF. Amiodarone/Eliquis 5. DM. SSI/levemir. 6. Anemia. Fe supplement. venofer as per Nephrology. 7. BPH. Flomax. 8. Anxiety/depression. Wellbutrin/Laxapro. DVT px. Pt on Eliquis. Thank you for your consultation. We will continue to follow along with you. Vital Signs/I&O Vital Signs Date Time Temp Pulse Resp B/P (MAP) Pulse Ox O2 Delivery O2 Flow Rate FiO2 12/20/18 06:00 97.2 79 20 110/72 (85) 90 2.0 I&O- Last 24 Hours up to 6 AM 12/20/18 06:00 Intake Total 1410 ml Output Total 1250 ml Balance 160 ml Laboratory Data Labs 24H Laboratory Tests 2 12/19/18 11:35: Bedside Glucose (Misc Panel) 178H 12/19/18 16:44: Bedside Glucose (Misc Panel) 224H 12/19/18 19:52: Bedside Glucose (Misc Panel) 249H 12/20/18 05:25: Nucleated Red Blood Cells % (auto) 0.0, Anion Gap 6L, Glomerular Filtration Rate 19.2L, Blood Urea Nitrogen 98H, Creatinine 3.40H, Sodium Level 132L, Potassium Level 4.3, Chloride Level 96L, Carbon Dioxide Level 30, Calcium Level 8.0L CBC/BMP Laboratory Tests 12/20/18 05:25 Red Blood Count 3.16 L, Mean Corpuscular Volume 91.8, Mean Corpuscular Hemoglobin 28.5, Mean Corpuscular Hemoglobin Concent 31.0 L, Red Cell Distribution Width 15.2 H, Calcium Level 8.0 L Microbiology Microbiology 12/12/18 Blood Culture - Final, Complete NO GROWTH AFTER 5 DAYS 12/12/18 Blood Culture - Final, Complete NO GROWTH AFTER 5 DAYS Allergies Coded Allergies: Penicillins (Verified Allergy, Intermediate, hives, 12/08/18) latex (Verified Allergy, Intermediate, hives, 12/08/18) Home Medications Scheduled Amiloride HCl (Amiloride HCl) 5 Mg Tab, 5 MG PO DAILY, (Reported) Amiodarone HCl (Amiodarone HCl) 200 Mg Tab, 200 MG PO DAILY, (Reported) Apixaban (Eliquis) 2.5 Mg Tab, 2.5 MG PO BID, (Reported) Ascorbic Acid (Ascorbic Acid) 250 Mg Tab, 250 MG PO BID, (Reported) Atorvastatin Calcium (Atorvastatin Calcium) 10 Mg Tab, 10 MG PO QHS, (Reported) Bupropion Hcl (Bupropion HCl Sr) 100 Mg Tab, 100 MG PO DAILY, (Reported) Cholecalciferol (Vitamin D3) (Vitamin D3) 1,000 Unit Tab, 1,000 UNIT PO DAILY, (Reported) Escitalopram Oxalate (Escitalopram Oxalate) 10 Mg Tab, 10 MG PO DAILY, (Reported) Ferrous Sulfate (Iron) 325 Mg Tab, 325 MG PO QHS, (Reported) Furosemide (Furosemide) 20 Mg Tab, 60 MG PO BID, (Reported) TAKES AT 0800 AND 1400 Glucagon,Human Recombinant (Glucagon Emergency Kit) 1 Mg Kit, 1 MG IM ASDIRECTED, (Reported) Insulin Glargine,Hum.rec.anlog (Basaglar Kwikpen U-100) 100 Unit/Ml Inj, 28 UNIT SC QHS, (Reported) INCREASE FROM 25 UNITS Insulin Lispro (Humalog Kwikpen U-100) 100 Unit/Ml Inj, 1 UNITS SC TID, (Reported) PER SLIDING SCALE Nystatin (Nystatin Powder) 100,000 Unit/Gm Pow, 1 DOSE TOP BID, (Reported) APPLY TO ABDOMINAL FOLDS AND GROIN Omeprazole (Omeprazole) 20 Mg Cap, 20 MG PO DAILY, (Reported) Pregabalin (Lyrica) 150 Mg Cap, 150 MG PO BID, (Reported) Sitagliptin (Januvia) 50 Mg Tab, 50 MG PO QHS, (Reported) Tamsulosin HCl (Flomax) 0.4 Mg Cap, 0.4 MG PO DAILY, (Reported) Tramadol HCl (Tramadol HCl) 50 Mg Tab, 50 MG PO BID, (Reported) Scheduled PRN Acetaminophen (Acetaminophen) 325 Mg Tab, 650 MG PO Q4H PRN for PAIN / FEVER, (Reported) Aluminum/Magnesium/Simeth (Mag-Al Plus Suspension) 30 Ml Susp, 30 ML PO Q6H PRN for HEARTBURN, (Reported) Bisacodyl (Bisacodyl) 10 Mg Sup, 10 MG MS DAILY PRN for CONSTIPATION, (Reported) Milk Of Magnesia (Milk of Magnesia) 1,200 Mg/15 Ml Luz, 30 ML PO DAILY PRN for CONSTIPATION, (Reported) Sodium Phosphate,[place]-Dibasic (Enema Ready To Use) 1 Klarissa Klarissa, 1 KLARISSA MS DAILY PRN for CONSTIPATION, (Reported) Sharron Cartwright Dec 20, 2018 09:55
[2018-12-20 10:24] LABS: PTH INTACT 147.3 PG/ML (18.5-88.0)
[2018-12-20 10:25] LABS: HEPATITIS B SURFACE ANTIBODY NEGATIVE (POSITIVE)
[2018-12-20 10:35] LABS: HEPATITIS B SURFACE ANTIGEN NEGATIVE (NEGATIVE)
--- NOTE | 2018-12-20 10:56 | REP ---
Bilateral upper extremity arterial and venous Doppler ultrasound: History: End-stage renal failure. Vein mapping study. Findings: There is no evidence of venous thrombosis. Moderate atherosclerotic plaquing is noted in the distal radial and ulnar arteries bilaterally. No stenosis or occlusion is seen. Right upper extremity vein diameter chart: Right upper humerus basilic 3.7 mm, cephalic 4.3 mm Lower humerus basilic 3.6 mm, cephalic 4.4 mm Antecubital basilic 5.7 mm, cephalic 3.5 mm Upper forearm basilic 3.0 mm, cephalic 1.9 mm Lower forearm basilic 2.2 mm, cephalic 3.1 mm Median cubital not visualized due to IV. Left upper extremity vein diameter chart: Left upper humerus to basilic 2.1 mm, cephalic 3.3 mm Lower humerus basilic 2.5 mm, cephalic 3.3 mm Antecubital basilic 2.1 mm, cephalic 1.5 mm Upper forearm basilic 2.4 mm, cephalic 1.9 mm Lower forearm basilic 3.1 mm, cephalic 2.2 mm Median cubital 2.7 mm Right upper extremity Doppler velocity and size diameter chart: Axillary artery PSV 70 cm/S, 5.6 mm Brachial 78 cm/S, 5.1 mm Radial 64 cm/S, 2.0 mm Ulnar 63 cm/S, 2.0 mm Left upper extremity Doppler velocity and size diameter chart: Axillary artery PSV 77 cm/S, 5.5 mm Brachial 83 cm/S, 4.6 mm Radial 45 cm/S, 1.0 mm Ulnar 56 cm/S, 2.6 mm Electronically Signed by Mauro Avila MD 12/20/2018 10:48 A
[2018-12-20 11:04] LABS: HEPATITIS B CORE ANTIBODY IGM NEGATIVE (NEGATIVE)
--- NOTE | 2018-12-20 12:31 | IPN ---
DATE: 12/20/2018 SUBJECTIVE: The patient is seen and examined at the bedside this morning getting hemodialysis. He just got the right internal jugular (IJ) tunnel hemodialysis catheter placed by vascular surgery. Today is his first session of hemodialysis. He is tolerating the hemodialysis procedure well. OBJECTIVE: VITAL SIGNS: Temperature is 97.2 degrees Fahrenheit, blood pressure 110/72, pulse 79, respiratory rate 20, saturating 90% on 2 liters via nasal cannula. Intake and output: Urine output recorded as 1 liter yesterday, 690 mL so far today since overnight. Weight on the bed scale is not available. PHYSICAL EXAMINATION: GENERAL: Patient is awake, alert, oriented times two laying in bed in no apparent distress getting hemodialysis done. HEAD/NECK: Extraocular muscles intact. Pupils equally round and reactive to light. Mucous membranes are moist. Neck is supple. He has a right IJ tunneled hemodialysis catheter. CARDIOVASCULAR: S1, S2. 2+ edema on the bilateral extremities. RESPIRATORY: Decreased breath sounds at the bases with mild crepitations on deep inspiration. ABDOMEN: Soft, obese, positive bowel sounds. There is abdominal wall edema noted bilaterally. MUSCULOSKELETAL: No clubbing or stenosis. Pulses are 2+. CHANGE COORDINATOR: He is oriented times two. He follows commands. Mentally, he is better today as compared with yesterday. LAB REVIEW: CBC showed WBC 6.8, hemoglobin 9, platelets 193. CMP showed sodium 132, potassium 4.3, chloride 97, bicarbonate is 30, BUN 98, creatinine is 3.4, calcium 8. CURRENT INPATIENT MEDICATIONS: Patient's medications are well reviewed by me. I am going to stop the IV Lasix now. ASSESSMENT/PLAN: 1. Acute renal failure superimposed on chronic kidney disease stage III. Patient's renal function has not improved because of the worsening creatinine and early signs and symptoms of uremia. He has been started on dialysis. Today is the first session of dialysis. He will be dialyzed for 2 hours. I will try to remove about 1 liters of fluid. Next hemodialysis will be tomorrow and he will be dialyzed for 3 hours tomorrow. 2. Acute decompensated diastolic congestive heart failure: Volume status is still decompensated. He was no responding very well to the IV diuretics. IV diuretics are being stopped. Volume status will be managed by dialysis now. 3. Atrial fibrillation: Heart rate is controlled. Okay to continue amiodarone and Eliquis at this time. 4. Anemia and renal failure: He has been started on Aranesp and iron with dialysis. 5. Hyponatremia: Patient is hypervolemic, hyponatremia. Sodium is expected to improve after dialysis. 6. Secondary hypoparathyroidism: Because of chronic kidney disease. PTH level is 147. No need of calcitriol at this point since is it below the target in renal failure patients.
[2018-12-20] MEDS: APIXABAN 2.5 MG TAB (ELIQUIS) PO SCH ×2 (13:20→21:19)
[2018-12-20] MEDS: PREGABALIN 75 MG CAP(LYRICA) PO SCH (13:20)
[2018-12-20] MEDS: ESCITALOPRAM OXALATE 10 MG TAB (LEXAPRO) PO SCH (13:20)
[2018-12-20] MEDS: VITAMIN D 1,000 INTERNATIONAL UNITS TABLET PO SCH (13:20)
[2018-12-20] MEDS: FERROUS SULFATE 325MG TAB PO SCH (13:21)
[2018-12-20] MEDS: TAMSULOSIN 0.4 MG CAP PO SCH (13:21)
[2018-12-20] MEDS: OMEPRAZOLE 20 MG CAP PO SCH (13:21)
[2018-12-20] MEDS: AMIODARONE 200 MG TAB (PACERONE) PO SCH (13:21)
[2018-12-20] MEDS: ATORVASTATIN 10 MG TAB PO SCH (13:21)
[2018-12-20] MEDS: buPROPion (WELLBUTRIN SR) 100 MG SR TAB PO SCH (13:25)
[2018-12-20] MEDS: NYSTATIN 100,000 UNITS/GM TOPICAL PWD 15 GM TOP SCH ×2 (13:25→21:20)
[2018-12-20 14:00] VITALS: BP 130/76
--- NOTE | 2018-12-20 14:18 | IPNPDOC ---
Text Note Date of Service The patient was seen on 12/20/18. NOTE S: Pt examined at bedside during dialysis. His renal function has not improved and he is scheduled to start hemodialysis today. He has no new complaints, states his breathing is slightly better, but still requiring supplemental O2. No other complaints. No cough, wheezing, f/c. PE: General: NAD, A&O, resting comfortably HEENT: NCAT, EOMI, anicteric sclera, MMM CV: RRR, no murmurs RESP: b/l crackles. No wheezing or rhonchi. Able to speak in full sentences ABD: obese, soft, NT, ND. Benign EXTREMITIES: 2+ radial pulses b/l, able to move all extremities, 2+ pitting edema b/l LE up the thighs and hips NEURO: no deficits or acute changes A/P: 1. Acute hypoxemia 2/2 decompensated CHF and atelectasis continues to require supplemental O2, RA at baseline. Continue to wean off O2 Pt will start hemodialysis today and breathing is expected to improve as volume status does Continue incentive spirometer 2. Decompensated Diastolic CHF Has not responded much to aggressive diuresis. Continues to be hypervolemic will undergo HD starting today 12/20. Strict I's and O's, daily weights, elevate head of bed nephro on board and adjusting diuresis 3. YULIANA on CKD III UA and renal US unrevealing for any intrinsic renal disease. renal function and uremia continue to worsen. Baseline CR ~1.7 Nephro consulted, appreciate input 4. Chronic A. fib is controlled with amiodarone. Chronically on Eliquis 5. IDDM 2 with neuropathy continue Lyrica. ISS & Levemir inpt 6. CAD s/p PCI 7. HTN controlled 8. HLD Continue Lipitor 9. Depression Stable. Continue Lexapro & Bupropion 10. GERD Continue omeprazole 11. BPH Continue Flomax 12. Recent rt hip fracture from mechanical fall s/p ORIF 13. History of Bradycardia s/p PPM placement 14. Anemia of chronic ds anemia w/u noted. Likely is 2/2 underlying CKD H&H stable, no overt bleeding DVT ppx: chronically Eliquis DISPO: pending clinical improvement, PT/OT VS,Fishbone, I+O VS, Fishbone, I+O Laboratory Tests 12/20/18 05:25 Red Blood Count 3.16 L, Mean Corpuscular Volume 91.8, Mean Corpuscular Hemoglobin 28.5, Mean Corpuscular Hemoglobin Concent 31.0 L, Red Cell Distribution Width 15.2 H, Calcium Level 8.0 L Vital Signs Date Time Temp Pulse Resp B/P (MAP) Pulse Ox O2 Delivery O2 Flow Rate FiO2 12/20/18 06:00 97.2 79 20 110/72 (85) 90 2.0 I&O- Last 24 Hours up to 6 AM 12/20/18 06:00 Intake Total 1410 ml Output Total 1250 ml Balance 160 ml GME ATTESTATION GME ATTESTATION My faculty preceptor for this patient encounter was physically present during the encounter and was fully available. All aspects of the patient interview, examination, medical decision making process, and medical care plan development were reviewed and approved by the faculty preceptor. The faculty preceptor is aware and concurs with the plan as stated in the body of this note and will attest to such by his/her cosignature. ISAIAS STOKES DO Dec 20, 2018 12:01
[2018-12-20] MEDS: ACETAMINOPHEN TAB 650MG DOSE (2X325MG) PO PRN (21:19)
[2018-12-20 22:00] VITALS: BP 126/64
[2018-12-21 06:00] VITALS: BP 141/65
[2018-12-21] MEDS: TAMSULOSIN 0.4 MG CAP PO SCH (06:23)
[2018-12-21] MEDS: AMIODARONE 200 MG TAB (PACERONE) PO SCH (06:23)
[2018-12-21] MEDS: FERROUS SULFATE 325MG TAB PO SCH (06:23)
[2018-12-21] MEDS: buPROPion (WELLBUTRIN SR) 100 MG SR TAB PO SCH (06:23)
[2018-12-21] MEDS: ESCITALOPRAM OXALATE 10 MG TAB (LEXAPRO) PO SCH (06:23)
[2018-12-21] MEDS: VITAMIN D 1,000 INTERNATIONAL UNITS TABLET PO SCH (06:24)
[2018-12-21] MEDS: APIXABAN 2.5 MG TAB (ELIQUIS) PO SCH ×2 (06:24→20:52)
[2018-12-21] MEDS: OMEPRAZOLE 20 MG CAP PO SCH (06:24)
[2018-12-21] MEDS: PREGABALIN 75 MG CAP(LYRICA) PO SCH (06:24)
[2018-12-21] MEDS: ACETAMINOPHEN TAB 650MG DOSE (2X325MG) PO PRN (06:28)
[2018-12-21] MEDS: LEVEMIR (INSULIN DETEMIR) 1 UNITS/0.01ML SC SCH ×2 (08:35→20:53)
[2018-12-21] MEDS: NYSTATIN 100,000 UNITS/GM TOPICAL PWD 15 GM TOP SCH ×2 (08:36→20:53)
[2018-12-21] MEDS: HumaLOG INSULIN (NovoLOG) PER UNIT SC SCH ×4 (08:36→20:46)
--- NOTE | 2018-12-21 10:35 | IPNPDOC ---
Text Note Date of Service The patient was seen on 12/21/18. NOTE S: Pt examined at bedside. Underwent 1st dialysis session yesterday without any complications, 1L removed. Has no new complaints today and states he is overall feeling better, but still requiring supplemental O2, 2L NC. No cough, wheezing, f/c. Is scheduled for HD again today. PE: General: NAD, A&O, resting comfortably HEENT: NCAT, EOMI, anicteric sclera, MMM CV: RRR, no murmurs RESP: b/l crackles long term up chest. No wheezing or rhonchi. Able to speak in full sentences ABD: obese, soft, NT, ND. Benign EXTREMITIES: 2+ radial pulses b/l, able to move all extremities, 2+ pitting edema b/l LE up the thighs and hips NEURO: no deficits or acute changes A/P: 1. Acute hypoxemia 2/2 decompensated CHF and atelectasis continues to require supplemental O2, RA at baseline. Continue to wean off O2 Started HD yesterday 10/22 with 1L removed, and will undergo HD again today. Breathing is expected to improve as volume status does Continue incentive spirometer 2. Decompensated Diastolic CHF failed aggressive diuresis. Continues to be hypervolemic, but improving with 1L removed yesterday in HD and 1.1L urine o/p scheduled for HD again today. Strict I's and O's, daily weights, elevate head of bed nephro on board and adjusting diuresis 3. YULIANA on CKD III UA and renal US unrevealing for any intrinsic renal disease. poor renal function, above baseline CR ~1.7. Urine o/p ~1L/day Nephro consulted, appreciate input. Plan for continued HD as mentioned above 4. Chronic A. fib is controlled with amiodarone. Chronically on Eliquis 5. IDDM 2 with neuropathy continue Lyrica. ISS & Levemir inpt 6. CAD s/p PCI 7. HTN controlled 8. HLD Continue Lipitor 9. Depression Stable. Continue Lexapro & Bupropion 10. GERD Continue omeprazole 11. BPH Continue Flomax 12. Recent rt hip fracture from mechanical fall s/p ORIF 13. History of Bradycardia s/p PPM placement 14. Anemia of chronic ds anemia w/u noted. Likely is 2/2 underlying CKD H&H stable, no overt bleeding DVT ppx: chronically Eliquis DISPO: pending clinical improvement, PT/OT VS,Fishbone, I+O VS, Fishbone, I+O Vital Signs Date Time Temp Pulse Resp B/P (MAP) Pulse Ox O2 Delivery O2 Flow Rate FiO2 12/21/18 06:00 97.0 79 22 141/65 (90) 96 2.0 I&O- Last 24 Hours up to 6 AM 12/21/18 06:00 Intake Total 720 ml Output Total 1890 ml Balance -1170 ml GME ATTESTATION GME ATTESTATION My faculty preceptor for this patient encounter was physically present during the encounter and was fully available. All aspects of the patient interview, examination, medical decision making process, and medical care plan development were reviewed and approved by the faculty preceptor. The faculty preceptor is aware and concurs with the plan as stated in the body of this note and will attest to such by his/her cosignature. ISAIAS STOKES DO Dec 21, 2018 10:35
--- NOTE | 2018-12-21 11:34 | IPN ---
DATE OF SERVICE: 12/21/2018 SUBJECTIVE: The patient was seen and examined at the bedside today morning. He is much more awake and alert today as compared with yesterday. He was dialyzed yesterday. He tolerated the hemodialysis procedure well. One liter of fluid was removed. The patient is complaining of leg pain and swelling. OBJECTIVE: VITAL SIGNS: Temperature is 97 degrees Fahrenheit, blood pressure 141/65, pulse 79, respiratory rate 22, saturating 96% on 2 liters via nasal cannula. Intake and output: Urine output recorded as 1.1 liter yesterday. Ultrafiltration with hemodialysis was 1.1 liters. Weight on the bed scale is 123.3 kg. PHYSICAL EXAMINATION: GENERAL: Patient is awake, alert, oriented times two laying in bed in no apparent distress. HEAD/NECK EXAM: Extraocular muscles intact. Pupils equally round and reactive to light. Mucous membranes are moist. Neck is supple. He has a right IJ tunneled hemodialysis catheter. The patient is wearing nasal cannula. CARDIOVASCULAR: S1, S2. 2+ edema of the bilateral extremities. RESPIRATORY: Mildly decreased breath sounds at the bases with mild expiratory crackles at the bases. ABDOMEN: Soft, obese, positive bowel sounds. Abdominal wall edema was noted. MUSCULOSKELETAL: No clubbing or stenosis. Pulses are 2+. 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 He follows commands and moves extremities. He is clinically much better today as compared with yesterday. LAB REVIEW: CBC showed WBC 6.8, hemoglobin 9, platelets 193. Today's BMP is pending. CURRENT INPATIENT MEDICATIONS: Patient's medications were well reviewed by me. His diuretics are on hold at this point. No other change in the medications today as compared with yesterday. ASSESSMENT/PLAN: 1. Acute renal failure superimposed on chronic kidney disease stage III. The patient is dialysis dependent. He was dialyzed yesterday for the first time, only 2 hours of dialysis was done. He will get another session of hemodialysis done today and 1.5 liters of fluid will be removed. 2. Acute decompensated diastolic congestive heart failure. The patient still has signs of volume overload. His diuretics were held yesterday. Volume status is being managed with dialysis. As mentioned above, further fluid removal will be done today. 3. Anemia and renal failure. Hemoglobin is 9, which is suboptimal. The patient has been started on Venofer with dialysis. Aranesp will be started if his hemoglobin stays below 10. 4. Hyponatremia. The patient has hypervolemic hyponatremia. Sodium is expected to improve with improvement in the volume status. 5. Atrial fibrillation. Heart rate is controlled with amiodarone. Continue Eliquis 2.5 mg by mouth twice a day.
[2018-12-21 11:44] LABS: HEMATOCRIT 29.8 % (42.0-52.0); HEMOGLOBIN 9.2 g/dl (13.5-17.5); MEAN CORPUSCULAR HEMOGLOBIN 28.6 pg (27.0-33.0); MEAN CORPUSCULAR HGB CONC 30.9 g/dl (32.0-36.5); MEAN CORPUSCULAR VOLUME 92.5 fl (80.0-96.0); PLATELET COUNT, AUTOMATED 170 10^3/uL (150-450); RED BLOOD COUNT 3.22 10^6/uL (4.30-6.10)
[2018-12-21 12:03] LABS: CALCIUM LEVEL 7.7 MG/DL (8.8-10.2); CREATININE FOR GFR 3.01 MG/DL (0.70-1.30); POTASSIUM SERUM 4.5 MEQ/L (3.5-5.1)
[2018-12-21] MEDS ORDERED: HEPARIN 1,000 UNITS/ML 10ML VIAL (FOR RADIOLOGY& DIALYSIS ONLY) IV ONE (12:30)
[2018-12-21] MEDS ORDERED: HEPARIN 1,000 UNITS/ML 10ML VIAL (FOR RADIOLOGY& DIALYSIS ONLY) XX ONE (12:30)
[2018-12-21] MEDS: ATORVASTATIN 10 MG TAB PO SCH (20:52)
[2018-12-21 22:00] VITALS: BP 116/61
--- NOTE | 2018-12-22 05:37 | REP ---
Clinical: Diabetes. Lower extremity edema. Technique: Real time dunn scale and color Doppler evaluation of the bilateral lower extremity arterial vasculature using linear high frequency transducer. Findings: Dunn scale and color images demonstrate mild bilateral atheromatous plaquing without evidence for significant stenosis. Generalized decreased velocities are noted with triphasic wave patterns suggesting underlying cardiac disease. Peak systolic velocities (cm/sec) RIGHT LEFT Common femoral artery 82.0 57.0 Profunda femoris 78.0 36.0 SFA (proximal) 67.0 68.0 SFA (mid) 95.0 77.0 SFA (distal) 52.0 52.0 Popliteal artery 49.0 59.0 JIM (prox.) 37.0 53.0 Tibioperoneal trunk 51.0 36.0 MANAGER STUDY (prox.) 19.0 21.0 MANAGER STUDY (distal) 28.0 38.0 JIM (distal) 53.0 41.0 Impression: Mild bilateral atheromatous plaquing without evidence for significant stenosis. Decreased velocities suggest cardiac dysfunction. Electronically Signed by Donnie Torrez MD 12/22/2018 05:28 A
[2018-12-22 06:00] VITALS: BP 138/67
[2018-12-22 06:14] LABS: HEMATOCRIT 28.3 % (42.0-52.0); HEMOGLOBIN 8.7 g/dl (13.5-17.5); MEAN CORPUSCULAR HEMOGLOBIN 27.8 pg (27.0-33.0); MEAN CORPUSCULAR HGB CONC 30.7 g/dl (32.0-36.5); MEAN CORPUSCULAR VOLUME 90.4 fl (80.0-96.0); PLATELET COUNT, AUTOMATED 171 10^3/uL (150-450); RED BLOOD COUNT 3.13 10^6/uL (4.30-6.10); WHITE BLOOD COUNT 5.8 10^3/uL (4.0-10.0)
[2018-12-22 06:35] LABS: CALCIUM LEVEL 8.2 MG/DL (8.8-10.2); CREATININE FOR GFR 2.14 MG/DL (0.70-1.30); GLOMERULAR FILTRATION RATE 32.7 (>42); POTASSIUM SERUM 3.9 MEQ/L (3.5-5.1)
[2018-12-22] MEDS: HumaLOG INSULIN (NovoLOG) PER UNIT SC SCH ×4 (07:21→21:00)
[2018-12-22] MEDS: PREGABALIN 75 MG CAP(LYRICA) PO SCH (08:41)
[2018-12-22] MEDS: APIXABAN 2.5 MG TAB (ELIQUIS) PO SCH ×2 (08:41→21:49)
[2018-12-22] MEDS: buPROPion (WELLBUTRIN SR) 100 MG SR TAB PO SCH (08:41)
[2018-12-22] MEDS: ESCITALOPRAM OXALATE 10 MG TAB (LEXAPRO) PO SCH (08:41)
[2018-12-22] MEDS: AMIODARONE 200 MG TAB (PACERONE) PO SCH (08:41)
[2018-12-22] MEDS: OMEPRAZOLE 20 MG CAP PO SCH (08:41)
[2018-12-22] MEDS: TAMSULOSIN 0.4 MG CAP PO SCH (08:41)
[2018-12-22] MEDS: VITAMIN D 1,000 INTERNATIONAL UNITS TABLET PO SCH (08:41)
[2018-12-22] MEDS: FERROUS SULFATE 325MG TAB PO SCH (08:41)
[2018-12-22] MEDS: LEVEMIR (INSULIN DETEMIR) 1 UNITS/0.01ML SC SCH ×2 (08:41→21:51)
[2018-12-22] MEDS: NYSTATIN 100,000 UNITS/GM TOPICAL PWD 15 GM TOP SCH ×2 (08:42→21:51)
[2018-12-22] MEDS ORDERED: DARBEPOETIN 100 MCG/0.5 ML *DIALYSIS* SYRINGE (J0882) IV SCH (13:00)
[2018-12-22 14:00] VITALS: BP 128/77
--- NOTE | 2018-12-22 18:18 | IPNPDOC ---
Text Note Date of Service The patient was seen on 12/22/18. NOTE S: Pt examined at bedside. Underwent 2nd dialysis session yesterday, 1st was the day prior. States he overall is feeling better and had no new complaints today. Still requiring supplemental O2, 2L NC. No cough, wheezing, f/c. Had ~350ml urine o/p yesterday. PE: General: NAD, A&O, resting comfortably HEENT: NCAT, EOMI, anicteric sclera, MMM CV: RRR, no murmurs RESP: b/l crackles fdc up chest. No wheezing or rhonchi. Able to speak in full sentences ABD: obese, soft, NT, ND. Benign EXTREMITIES: 2+ radial pulses b/l, able to move all extremities, 2+ pitting edema b/l LE up the thighs and hips NEURO: no deficits or acute changes A/P: 1. Acute hypoxemia 2/2 decompensated CHF and atelectasis continues to require supplemental O2, RA at baseline. Continue to wean off O2 Started HD 10/22, second session 10/23. Breathing is expected to improve as volume status does Continue incentive spirometer 2. Decompensated Diastolic CHF failed aggressive diuresis. Continues to be hypervolemic, Poor urine o/p Jaqueline nue HD as per nephro Strict I's and O's, daily weights, elevate head of bed 3. YULIANA on CKD III UA and renal US unrevealing for any intrinsic renal disease. Cr down to 2.4 s/p 2 days of dialysis, above baseline CR ~1.7. Poor urine o/p ~350mL Nephro consulted, appreciate input-in process of working with PFS to obtain o/p HD seat 4. Chronic A. fib is controlled with amiodarone. Chronically on Eliquis 5. IDDM 2 with neuropathy continue Lyrica. ISS & Levemir inpt 6. CAD s/p PCI 7. HTN controlled 8. HLD Continue Lipitor 9. Depression Stable. Continue Lexapro & Bupropion 10. GERD Continue omeprazole 11. BPH Continue Flomax 12. Recent rt hip fracture from mechanical fall s/p ORIF 13. History of Bradycardia s/p PPM placement 14. Anemia of chronic ds anemia w/u noted. Likely is 2/2 underlying CKD H&H stable, no overt bleeding DVT ppx: chronically Eliquis DISPO: pending clinical improvement, PT/OT VS,Fishbone, I+O VS, Fishbone, I+O Laboratory Tests 12/22/18 05:49 Red Blood Count 3.13 L, Mean Corpuscular Volume 90.4, Mean Corpuscular Hemoglobin 27.8, Mean Corpuscular Hemoglobin Concent 30.7 L, Red Cell Distribution Width 15.4 H, Calcium Level 8.2 L Vital Signs Date Time Temp Pulse Resp B/P (MAP) Pulse Ox O2 Delivery O2 Flow Rate FiO2 12/22/18 14:00 97.1 79 20 128/77 (94) 96 12/22/18 09:12 2.0 I&O- Last 24 Hours up to 6 AM 12/22/18 06:00 Intake Total 790 ml Output Total 1650 ml Balance -860 ml GME ATTESTATION GME ATTESTATION My faculty preceptor for this patient encounter was physically present during the encounter and was fully available. All aspects of the patient interview, examination, medical decision making process, and medical care plan development were reviewed and approved by the faculty preceptor. The faculty preceptor is aware and concurs with the plan as stated in the body of this note and will attest to such by his/her cosignature. ISAIAS STOKES DO Dec 22, 2018 18:18
[2018-12-22] MEDS: ATORVASTATIN 10 MG TAB PO SCH (21:49)
[2018-12-22 22:00] VITALS: BP 119/67
[2018-12-23 06:00] VITALS: BP 126/73
[2018-12-23 06:11] LABS: HEMATOCRIT 29.6 % (42.0-52.0); HEMOGLOBIN 8.9 g/dl (13.5-17.5); MEAN CORPUSCULAR HEMOGLOBIN 27.6 pg (27.0-33.0); MEAN CORPUSCULAR HGB CONC 30.1 g/dl (32.0-36.5); MEAN CORPUSCULAR VOLUME 91.9 fl (80.0-96.0); PLATELET COUNT, AUTOMATED 175 10^3/uL (150-450); RED BLOOD COUNT 3.22 10^6/uL (4.30-6.10); WHITE BLOOD COUNT 4.9 10^3/uL (4.0-10.0)
[2018-12-23 06:35] LABS: CALCIUM LEVEL 8.1 MG/DL (8.8-10.2); CREATININE FOR GFR 2.22 MG/DL (0.70-1.30); GLOMERULAR FILTRATION RATE 31.3 (>42)
[2018-12-23] MEDS: TAMSULOSIN 0.4 MG CAP PO SCH (06:47)
[2018-12-23] MEDS: VITAMIN D 1,000 INTERNATIONAL UNITS TABLET PO SCH (06:47)
[2018-12-23] MEDS: FERROUS SULFATE 325MG TAB PO SCH (06:48)
[2018-12-23] MEDS: PREGABALIN 75 MG CAP(LYRICA) PO SCH (06:48)
[2018-12-23] MEDS: APIXABAN 2.5 MG TAB (ELIQUIS) PO SCH ×2 (06:48→22:27)
[2018-12-23] MEDS: OMEPRAZOLE 20 MG CAP PO SCH (06:49)
[2018-12-23] MEDS: AMIODARONE 200 MG TAB (PACERONE) PO SCH (06:49)
[2018-12-23] MEDS: ESCITALOPRAM OXALATE 10 MG TAB (LEXAPRO) PO SCH (06:49)
[2018-12-23] MEDS: buPROPion (WELLBUTRIN SR) 100 MG SR TAB PO SCH (06:53)
--- NOTE | 2018-12-23 07:28 | IPN ---
DATE OF SERVICE: 12/22/2018 SUBJECTIVE: The patient was seen and examined at the bedside today morning. He is afebrile and hemodynamically stable. He was dialyzed yesterday, 1.5 liters of fluid was removed. He is much more awake and alert today. He is able to communicate with me. His shortness of breath is also improving. OBJECTIVE: VITAL SIGNS: Temperature is 97.1 degrees Fahrenheit, blood pressure 128/77, pulse 79, respiratory rate 20, saturating 96% on 2 liters via nasal cannula. INTAKE AND OUTPUT: Urine output recorded as 150 mL. Ultrafiltration with hemodialysis was only 1.5 liters. Weight on the bed scale is 123.2 kg. PHYSICAL EXAMINATION: GENERAL: Patient is awake, alert, oriented times two today, laying in bed in no apparent distress. HEAD/NECK EXAM: Extraocular muscles intact. Pupils equally round and reactive to light. Mucous membranes are moist. Neck is supple. He has a right IJ tunneled hemodialysis catheter. CARDIOVASCULAR: S1, S2. 2+ edema of the bilateral lower extremities. RESPIRATORY: Mildly decreased breath sounds at the bases, otherwise no active rales or rhonchi. ABDOMEN: Soft, obese, positive bowel sounds. Positive abdominal wall edema. MUSCULOSKELETAL: No clubbing or cyanosis. Pulses are 2+. 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 He is oriented times two. There is no more asterixis. He moves all four extremities. LAB REVIEW: CBC showed a WBC of 5.8, hemoglobin 8.6 and platelets 171. BMP showed sodium 137, potassium 3.9, chloride 101, bicarbonate 29, BUN 56, creatinine 2.1, calcium 8.2. CURRENT INPATIENT MEDICATIONS: Patient's medications were all reviewed by me. He has been started on Aranesp today. There is no other change in the medications today as compared with yesterday. ASSESSMENT/PLAN: 1. Acute renal failure superimposed on chronic kidney disease stage III. The patient is dialysis dependent at this point. He was dialyzed two days in a row. Next hemodialysis session will be tomorrow. 2. Acute decompensated diastolic congestive heart failure. The patient still is volume overloaded. I will try to remove at least 3 liters of fluid tomorrow with dialysis. 3. Anemia secondary to end stage renal disease. He has been started on Aranesp. He is also getting Venofer with dialysis. There is history of latex allergy. I confirmed with the pharmacy, latex is only found in the cap that is covering the injection, there is no latex in the medicine. 4. Hyponatremia. The patient has hypervolemic hyponatremia. Sodium level has improved after fluid removal. 5. Atrial fibrillation. Heart rate is controlled. Continue Eliquis at this point.
[2018-12-23] MEDS: LEVEMIR (INSULIN DETEMIR) 1 UNITS/0.01ML SC SCH ×2 (07:45→22:28)
[2018-12-23] MEDS: HumaLOG INSULIN (NovoLOG) PER UNIT SC SCH ×4 (07:46→21:00)
[2018-12-23] MEDS: NYSTATIN 100,000 UNITS/GM TOPICAL PWD 15 GM TOP SCH (07:50)
[2018-12-23] MEDS ORDERED: HEPARIN 1,000 UNITS/ML 10ML VIAL (FOR RADIOLOGY& DIALYSIS ONLY) IV ONE (10:45)
[2018-12-23] MEDS ORDERED: HEPARIN 1,000 UNITS/ML 10ML VIAL (FOR RADIOLOGY& DIALYSIS ONLY) XX ONE (10:45)
[2018-12-23 12:05] VITALS: BP 116/73
--- NOTE | 2018-12-23 12:20 | IPN ---
DATE OF SERVICE: 12/23/2018 SUBJECTIVE: The patient was seen and examined at the bedside today morning during hemodialysis procedure. He is tolerating the hemodialysis procedure well. He reports moderate amount of shortness of breath which is improving with dialysis now. There are no signs of renal recovery. He continues to be oliguric at this point. OBJECTIVE: VITAL SIGNS: Temperature is 96.7 degrees Fahrenheit, blood pressure 126/73, pulse 80, respiratory rate 20, saturating 98% on nasal cannula at 2 liters. INTAKE AND OUTPUT: Urine output recorded as 300 mL so far today. Weight on the bed scale is 121.8 kg. PHYSICAL EXAMINATION: GENERAL: Patient is awake, alert, oriented times three, morbidly obese, laying in bed getting hemodialysis done. HEAD/NECK EXAM: Extraocular muscles intact. Pupils equally round and reactive to light. Mucous membranes are moist. He has a right IJ tunneled hemodialysis catheter which is being used for dialysis. CARDIOVASCULAR: S1, S2. Regular rate. 2+ edema of the bilateral lower extremities. RESPIRATORY: Mildly decreased breath sounds at the bases, he is wearing nasal cannula. ABDOMEN: Soft, obese, positive bowel sounds. Abdominal wall edema in the flanks was noted. MUSCULOSKELETAL: No clubbing or cyanosis. Pulses are 2+. 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 He moves all extremities and follows commands. LAB REVIEW: CBC showed a WBC of 4.9, hemoglobin 8.9 and platelets 175. BMP showed sodium 136, potassium 4, chloride 101, bicarbonate 29, BUN 61, creatinine 2.2, calcium 8.1. CURRENT INPATIENT MEDICATIONS: Patient's medications were all reviewed by me. There is no change in the medications today as compared with yesterday. ASSESSMENT/PLAN: 1. Acute renal failure superimposed on chronic kidney disease stage III. The patient is still oliguric at this point. He has significant volume overload. He is dialysis dependent. I will try to remove at least 3 liters of fluid as tolerated by his blood pressure. 2. Acute decompensated diastolic congestive heart failure. The patient is still significantly volume overloaded. As mentioned above, volume status is being optimized with dialysis. 3. Anemia secondary to end stage renal disease. He has been started on Aranesp and Venofer with dialysis. Hemoglobin level is improving.
[2018-12-23] MEDS: ACETAMINOPHEN TAB 650MG DOSE (2X325MG) PO PRN (13:41)
[2018-12-23 14:00] VITALS: BP 116/73
--- NOTE | 2018-12-23 18:16 | IPNPDOC ---
Text Note Date of Service The patient was seen on 12/23/18. NOTE S: Pt examined at bedside during HD. This is his 3rd session, tolerating well. No events overnight. He states she overall feels better, but continues to be oliguric with 150mL urine o/p yesterday. Remains hypervolemic. Still requiring supplemental O2, 2L NC. No cough, wheezing, f/c. PE: General: NAD, A&O, resting comfortably HEENT: NCAT, EOMI, anicteric sclera, MMM CV: RRR, no murmurs RESP: b/l crackles snf up chest. No wheezing or rhonchi. Able to speak in full sentences ABD: obese, soft, NT, ND. Benign EXTREMITIES: 2+ radial pulses b/l, able to move all extremities, 2+ pitting edema b/l LE up the thighs and hips NEURO: no deficits or acute changes A/P: 1. Acute hypoxemia 2/2 decompensated CHF and atelectasis continues to require supplemental O2, RA at baseline. Continue to wean off O2 Started HD 10/22, second session 10/23. 3rd session today. Breathing is expected to improve as volume status does Continue incentive spirometer 2. Decompensated Diastolic CHF failed aggressive diuresis. Continues to be hypervolemic, Poor urine o/p Continue HD as per nephro Strict I's and O's with Hdez, daily weights, elevate head of bed 3. YULIANA on CKD III UA and renal US unrevealing for any intrinsic renal disease. no improvement in renal function, still oliguric and above baseline CR ~1.7 Nephro consulted, appreciate input-in process of working with PFS to obtain o/p HD seat Pt aware that he may very well require long-term dialysis 4. Chronic A. fib is controlled with amiodarone. Chronically on Eliquis 5. IDDM 2 with neuropathy continue Lyrica. ISS & Levemir inpt 6. CAD s/p PCI 7. HTN controlled 8. HLD Continue Lipitor 9. Depression Stable. Continue Lexapro & Bupropion 10. GERD Continue omeprazole 11. BPH Continue Flomax 12. Recent rt hip fracture from mechanical fall s/p ORIF 13. History of Bradycardia s/p PPM placement 14. Anemia of chronic ds anemia w/u noted. Likely is 2/2 underlying CKD H&H stable, no overt bleeding DVT ppx: chronically Eliquis DISPO: pending clinical improvement, PT/OT VS,Fishbone, I+O VS, Fishbone, I+O Laboratory Tests 12/23/18 05:22 Red Blood Count 3.22 L, Mean Corpuscular Volume 91.9, Mean Corpuscular Hemoglobin 27.6, Mean Corpuscular Hemoglobin Concent 30.1 L, Red Cell Distribution Width 15.2 H, Calcium Level 8.1 L Vital Signs Date Time Temp Pulse Resp B/P (MAP) Pulse Ox O2 Delivery O2 Flow Rate FiO2 12/23/18 14:00 96.8 77 20 116/73 (87) 97 2.0 I&O- Last 24 Hours up to 6 AM 12/23/18 06:00 Intake Total 580 ml Output Total 450 ml Balance 130 ml GME ATTESTATION GME ATTESTATION My faculty preceptor for this patient encounter was physically present during the encounter and was fully available. All aspects of the patient interview, examination, medical decision making process, and medical care plan development were reviewed and approved by the faculty preceptor. The faculty preceptor is aware and concurs with the plan as stated in the body of this note and will attest to such by his/her cosignature. ISAIAS STOKES DO Dec 23, 2018 18:16
[2018-12-23 22:00] VITALS: BP 124/68
[2018-12-23] MEDS: ATORVASTATIN 10 MG TAB PO SCH (22:27)
[2018-12-24] MEDS: NYSTATIN 100,000 UNITS/GM TOPICAL PWD 15 GM TOP SCH ×3 (02:10→21:00)
[2018-12-24 06:00] VITALS: BP 126/72
[2018-12-24 06:07] LABS: HEMATOCRIT 31.1 % (42.0-52.0); HEMOGLOBIN 9.3 g/dl (13.5-17.5); MEAN CORPUSCULAR HEMOGLOBIN 27.7 pg (27.0-33.0); MEAN CORPUSCULAR HGB CONC 29.9 g/dl (32.0-36.5); MEAN CORPUSCULAR VOLUME 92.6 fl (80.0-96.0); PLATELET COUNT, AUTOMATED 188 10^3/uL (150-450); RED BLOOD COUNT 3.36 10^6/uL (4.30-6.10); WHITE BLOOD COUNT 5.6 10^3/uL (4.0-10.0)
[2018-12-24 06:21] LABS: CREATININE FOR GFR 1.94 MG/DL (0.70-1.30); GLOMERULAR FILTRATION RATE 36.6 (>42); POTASSIUM SERUM 3.9 MEQ/L (3.5-5.1)
[2018-12-24] MEDS: HumaLOG INSULIN (NovoLOG) PER UNIT SC SCH ×4 (09:01→21:00)
[2018-12-24 09:15] VITALS: BP 118/71
[2018-12-24] MEDS: ESCITALOPRAM OXALATE 10 MG TAB (LEXAPRO) PO SCH (09:18)
[2018-12-24] MEDS: OMEPRAZOLE 20 MG CAP PO SCH (09:18)
[2018-12-24] MEDS: PREGABALIN 75 MG CAP(LYRICA) PO SCH (09:18)
[2018-12-24] MEDS: VITAMIN D 1,000 INTERNATIONAL UNITS TABLET PO SCH (09:18)
[2018-12-24] MEDS: LEVEMIR (INSULIN DETEMIR) 1 UNITS/0.01ML SC SCH ×2 (09:18→21:01)
[2018-12-24] MEDS: buPROPion (WELLBUTRIN SR) 100 MG SR TAB PO SCH (09:18)
[2018-12-24] MEDS: TAMSULOSIN 0.4 MG CAP PO SCH (09:18)
[2018-12-24] MEDS: AMIODARONE 200 MG TAB (PACERONE) PO SCH (09:18)
[2018-12-24] MEDS: FERROUS SULFATE 325MG TAB PO SCH (09:18)
[2018-12-24] MEDS: APIXABAN 2.5 MG TAB (ELIQUIS) PO SCH ×2 (09:19→21:00)
--- NOTE | 2018-12-24 11:56 | IPN ---
DATE: 12/24/2018 SUBJECTIVE: Patient was seen and examined at the bedside this morning. He was sitting on the sofa. He reports that he feels much better today after getting his hemodialysis done. 3 liters of fluid was removed. He is off of nasal cannula and breathing is better. However, he still reports a moderate amount of lower extremity edema. OBJECTIVE: VITAL SIGNS: Temperature 97.1 degrees Fahrenheit. Blood pressure 118/71, pulse 83, respiratory rate 24, saturating 91% on room air. Intake and output: Urine output recorded as 1 liter yesterday. Fluid removal with dialysis was 3 liters. Weight on the bed scale is 118.3 kg. PHYSICAL EXAMINATION: GENERAL: Patient is awake, alert, oriented times three, morbidly obese, sitting up on the sofa in no apparent distress. HEAD/NECK EXAM: Extraocular muscles intact. Pupils equally round and reactive to light. Mucous membranes are moist. He has a right internal jugular (IJ) tunnel hemodialysis catheter. CARDIOVASCULAR: S1, S2, regular rate. 2+ edema of the bilateral lower extremities. RESPIRATORY: Mild decreased breath sounds at the bases with mild inspiratory crackles on deep inspiration. ABDOMEN: Soft, obese, positive bowel sounds. Abdominal wall edema is noted in the flanks. MUSCULOSKELETAL: No clubbing or stenosis. Pulses are 2+. CENTRAL NERVOUS SYSTEM, (EASTER BUNNY): He is alert and oriented times three. He is able to move all extremities. LAB REVIEW: CBC showed a WBC 5.6, hemoglobin 9.3, platelet 188. BMP showed sodium 136, potassium 3.9, chloride 102, bicarbonate 30, BUN 42, creatinine is 1.9, calcium is 8. CURRENT INPATIENT MEDICATIONS: Patient's medications are all reviewed by me. There is no change in the medications today as compared with yesterday. ASSESSMENT/PLAN: 1. Acute renal failure superimposed on chronic kidney disease stage III: Patient was dialyzed yesterday at 3 liters of fluid was removed. His breathing is significantly better. However, he still has significant fluid overload. I am going to do another sessions of ultrafiltration with 3-1/2 hours and try to remove 3 more Kg of fluid as tolerated by his blood pressure. 2. Acute decompensated diastolic congestive heart failure: Patient still has significant fluid in his lower extremities and abdominal wall. Volume status is being optimized with dialysis now. 3. Anemia secondary to renal failure: Patient is tolerating Aranesp and Venofer. Hemoglobin is nicely improving to 9.3. 4. Diabetes mellitus type 2: Glucose levels are better controlled. Continue current dose of insulin sliding scale and Levemir. The rest of the management is as per primary team. MTDD
[2018-12-24] MEDS ORDERED: HEPARIN 1,000 UNITS/ML 10ML VIAL (FOR RADIOLOGY& DIALYSIS ONLY) XX ONE (13:45)
--- NOTE | 2018-12-24 14:28 | IPNPDOC ---
Text Note Date of Service The patient was seen on 12/24/18. NOTE S: Pt examined at bedside. Had 3L removed yesterday and is feeling better today. Still complaining of swollen legs, but is able to breath on RA and NC was weaned off for this am. Had urinary retention overnight, straight cath x2, and made 1L urine yesterday. Pt requesting Hdez catheter. No cough, wheezing, f/c. PE: General: NAD, A&O, resting comfortably HEENT: NCAT, EOMI, anicteric sclera, MMM CV: RRR, no murmurs RESP: mild bibasilar crackles, much improved from prior days. Otherwise clear throughout. Able to speak in full sentences ABD: obese, soft, NT, ND. Benign EXTREMITIES: 2+ radial pulses b/l, able to move all extremities, 1-2+ pitting edema b/l LE up the thighs and hips NEURO: no deficits or acute changes A/P: 1. Acute hypoxemia 2/2 decompensated CHF and atelectasis off of supplemental O2 as of this morning. Monitor resp status. Breathing is improving with dialysis, started 10/22 continue fluid removal with HD as per nephro Continue incentive spirometer 2. Decompensated Diastolic CHF failed aggressive diuresis. Continues to be hypervolemic, but less so today compared to prior days urine o/p improving, 1L yesterday continue HD as per nephro. Wt down from 123kg on admission to 118kg Strict I's and O's with Hdez inserted today 12/24, daily weights, elevate head of bed 3. YULIANA on CKD III UA and renal US unrevealing for any intrinsic renal disease. monitor renal function, baseline CR prior to dialysis ~1.7 Nephro consulted, appreciate input-in process of working with PFS to obtain o/p HD seat Pt aware that he may very well require long-term dialysis 4. Chronic A. fib is controlled with amiodarone. Chronically on Eliquis 5. IDDM 2 with neuropathy continue Lyrica. ISS & Levemir inpt 6. CAD s/p PCI 7. HTN controlled 8. HLD Continue Lipitor 9. Depression Stable. Continue Lexapro & Bupropion 10. GERD Continue omeprazole 11. BPH Continue Flomax 12. Recent rt hip fracture from mechanical fall s/p ORIF 13. History of Bradycardia s/p PPM placement 14. Anemia of chronic ds anemia w/u noted. Likely is 2/2 underlying CKD H&H stable, no overt bleeding DVT ppx: chronically Eliquis DISPO: pending volume optimization, PT/OT VS,Fishbone, I+O VS, Fishbone, I+O Laboratory Tests 12/24/18 05:18 Red Blood Count 3.36 L, Mean Corpuscular Volume 92.6, Mean Corpuscular Hemoglobin 27.7, Mean Corpuscular Hemoglobin Concent 29.9 L, Red Cell Distribution Width 15.3 H, Calcium Level 8.0 L Vital Signs Date Time Temp Pulse Resp B/P (MAP) Pulse Ox O2 Delivery O2 Flow Rate FiO2 12/24/18 12:29 96 1.0 12/24/18 09:15 83 118/71 (87) 12/24/18 06:00 97.1 24 I&O- Last 24 Hours up to 6 AM 12/24/18 06:00 Intake Total 750 ml Output Total 4050 ml Balance -3300 ml GME ATTESTATION GME ATTESTATION My faculty preceptor for this patient encounter was physically present during the encounter and was fully available. All aspects of the patient interview, examination, medical decision making process, and medical care plan development were reviewed and approved by the faculty preceptor. The faculty preceptor is aware and concurs with the plan as stated in the body of this note and will attest to such by his/her cosignature. ISAIAS STOKES DO Dec 24, 2018 14:28
[2018-12-24 17:07] VITALS: BP 117/70
[2018-12-24] MEDS: ATORVASTATIN 10 MG TAB PO SCH (21:01)
[2018-12-24 22:00] VITALS: BP 112/65
[2018-12-25 06:00] VITALS: BP 119/68
[2018-12-25 06:38] LABS: HEMATOCRIT 31.8 % (42.0-52.0); HEMOGLOBIN 9.5 g/dl (13.5-17.5); MEAN CORPUSCULAR HEMOGLOBIN 27.3 pg (27.0-33.0); MEAN CORPUSCULAR HGB CONC 29.9 g/dl (32.0-36.5); MEAN CORPUSCULAR VOLUME 91.4 fl (80.0-96.0); PLATELET COUNT, AUTOMATED 199 10^3/uL (150-450); RED BLOOD COUNT 3.48 10^6/uL (4.30-6.10); WHITE BLOOD COUNT 5.3 10^3/uL (4.0-10.0)
[2018-12-25 07:04] LABS: CREATININE FOR GFR 2.1 MG/DL (0.70-1.30); GLOMERULAR FILTRATION RATE 33.4 (>42); POTASSIUM SERUM 4.4 MEQ/L (3.5-5.1)
[2018-12-25] MEDS: LEVEMIR (INSULIN DETEMIR) 1 UNITS/0.01ML SC SCH ×2 (08:12→20:54)
[2018-12-25] MEDS: VITAMIN D 1,000 INTERNATIONAL UNITS TABLET PO SCH (08:13)
[2018-12-25] MEDS: OMEPRAZOLE 20 MG CAP PO SCH (08:13)
[2018-12-25] MEDS: HumaLOG INSULIN (NovoLOG) PER UNIT SC SCH ×4 (08:13→21:00)
[2018-12-25] MEDS: PREGABALIN 75 MG CAP(LYRICA) PO SCH (08:13)
[2018-12-25] MEDS: buPROPion (WELLBUTRIN SR) 100 MG SR TAB PO SCH (08:13)
[2018-12-25] MEDS: TAMSULOSIN 0.4 MG CAP PO SCH (08:14)
[2018-12-25] MEDS: APIXABAN 2.5 MG TAB (ELIQUIS) PO SCH ×2 (08:14→20:53)
[2018-12-25] MEDS: NYSTATIN 100,000 UNITS/GM TOPICAL PWD 15 GM TOP SCH ×2 (08:14→20:54)
[2018-12-25] MEDS: AMIODARONE 200 MG TAB (PACERONE) PO SCH (08:14)
[2018-12-25] MEDS: ESCITALOPRAM OXALATE 10 MG TAB (LEXAPRO) PO SCH (08:14)
[2018-12-25] MEDS: FERROUS SULFATE 325MG TAB PO SCH (08:14)
[2018-12-25] MEDS ORDERED: HEPARIN 1,000 UNITS/ML 10ML VIAL (FOR RADIOLOGY& DIALYSIS ONLY) IV ONE (11:45)
[2018-12-25 14:00] VITALS: BP 120/70
--- NOTE | 2018-12-25 14:29 | IPN ---
DATE: 12/25/2018 is seen during hemodialysis this morning. He is feeling better and reports improved dyspnea. He denies any nausea or vomiting. On physical examination, temperature is 96.9 degrees Fahrenheit, heart rate 82 per minute and respiratory rate 17 per minute. Blood pressure 119/68 mmHg and oxygen saturation 98%. His head is atraumatic. Neck is supple and jugular venous distention (JVD) is mildly elevated. He has a Perma-Cath in the right internal jugular vein. He is using oxygen via nasal cannula. Nose and throat are unremarkable. Heart exam reveals regular S1 and S2 without a pericardial friction rub. Lungs have diminished breath sounds at the bases. Abdomen is soft, nontender and bowel sounds are present. Extremities have no cyanosis or clubbing. Neurologically, he is awake, alert and oriented times three. Today's labs show WBC count 5.3, hemoglobin 9.5 and hematocrit 31.8. Sodium 137, potassium 4.4, CO2 29, BUN 52 and creatinine 2.10. Glucose 158 and calcium 8.0. PROBLEMS: 1. Acute renal failure superimposed on chronic kidney disease. The patient is being dialyzed today and he is tolerating dialysis treatment very well. We are removing about 3 liters fluid again as tolerated. 2. Congestive heart failure. His volume status has improved significantly since dialysis was initiated last week. His weight has come down by 5 kg and we are removing about 3 liters again today. He should remain on fluid restriction of 1500 mL per day. 4. Anemia. At this point, his anemia is stable and we will continue to monitor closely. There is no emergent need for a transfusion. He receives Aranesp 100 mcg once a week. 5. Generalized weakness. The patient is still very weak and will require physical therapy and rehab.
--- NOTE | 2018-12-25 17:39 | IPNPDOC ---
Text Note Date of Service The patient was seen on 12/25/18. NOTE S: Pt examined at bedside during HD. No new complaints. States he feels much better today and requesting to have NC removed. Edema and breathing are improving. No longer having urinary retention and did not require any additional straight cath or Hdez insertion. No cough, wheezing, f/c. PE: General: NAD, A&O, resting comfortably HEENT: NCAT, EOMI, anicteric sclera, MMM CV: RRR, no murmurs RESP: minimal bibasilar crackles, much improved from prior days. Otherwise clear throughout. Able to speak in full sentences ABD: obese, soft, NT, ND. Benign EXTREMITIES: 2+ radial pulses b/l, able to move all extremities, 1-2+ pitting edema b/l LE up the thighs and hips NEURO: no deficits or acute changes A/P: 1. Acute hypoxemia 2/2 decompensated CHF and atelectasis Intermittently requiring 1L NC, on RA at baseline. Monitor resp status. Breathing is improving with dialysis, started 10/22 continue fluid removal with HD as per nephro Continue incentive spirometer 2. Decompensated Diastolic CHF failed aggressive diuresis. Continues to be hypervolemic, but improving with additional HD sessions urine o/p improving, ~1L/day for past 2 days continue HD as per nephro. Wt down from 123kg on admission to 118kg Strict I's and O's, daily weights, elevate head of bed 3. YULIANA on CKD III UA and renal US unrevealing for any intrinsic renal disease. monitor renal function, baseline CR prior to dialysis ~1.7 Nephro consulted, appreciate input-in process of working with PFS to obtain o/p HD seat Pt aware that he may very well require long-term dialysis 4. Chronic A. fib is controlled with amiodarone. Chronically on Eliquis 5. IDDM 2 with neuropathy continue Lyrica. ISS & Levemir inpt 6. CAD s/p PCI 7. HTN controlled 8. HLD Continue Lipitor 9. Depression Stable. Continue Lexapro & Bupropion 10. GERD Continue omeprazole 11. BPH Continue Flomax 12. Recent rt hip fracture from mechanical fall s/p ORIF 13. History of Bradycardia s/p PPM placement 14. Anemia of chronic ds anemia w/u noted. Likely is 2/2 underlying CKD H&H stable, no overt bleeding DVT ppx: chronically Eliquis DISPO: pending volume optimization, PT/OT VS,Fishbone, I+O VS, Fishbone, I+O Laboratory Tests 12/25/18 05:30 Red Blood Count 3.48 L, Mean Corpuscular Volume 91.4, Mean Corpuscular Hemoglobin 27.3, Mean Corpuscular Hemoglobin Concent 29.9 L, Red Cell Distribution Width 15.4 H, Calcium Level 8.0 L Vital Signs Date Time Temp Pulse Resp B/P (MAP) Pulse Ox O2 Delivery O2 Flow Rate FiO2 12/25/18 14:00 97.1 80 19 120/70 (87) 96 1.0 I&O- Last 24 Hours up to 6 AM 12/25/18 06:00 Intake Total 990 ml Output Total 3750 ml Balance -2760 ml GME ATTESTATION GME ATTESTATION My faculty preceptor for this patient encounter was physically present during the encounter and was fully available. All aspects of the patient interview, examination, medical decision making process, and medical care plan development were reviewed and approved by the faculty preceptor. The faculty preceptor is aware and concurs with the plan as stated in the body of this note and will attest to such by his/her cosignature. ISAIAS STOKES DO Dec 25, 2018 17:38
[2018-12-25] MEDS: ATORVASTATIN 10 MG TAB PO SCH (20:53)
[2018-12-25 22:00] VITALS: BP 110/60
[2018-12-26 06:00] VITALS: BP 118/69
[2018-12-26 06:33] LABS: HEMATOCRIT 32.5 % (42.0-52.0); HEMOGLOBIN 9.9 g/dl (13.5-17.5); MEAN CORPUSCULAR HEMOGLOBIN 27.9 pg (27.0-33.0); MEAN CORPUSCULAR HGB CONC 30.5 g/dl (32.0-36.5); MEAN CORPUSCULAR VOLUME 91.5 fl (80.0-96.0); PLATELET COUNT, AUTOMATED 203 10^3/uL (150-450); RED BLOOD COUNT 3.55 10^6/uL (4.30-6.10); WHITE BLOOD COUNT 6.2 10^3/uL (4.0-10.0)
[2018-12-26 06:59] LABS: CALCIUM LEVEL 7.9 MG/DL (8.8-10.2); CREATININE FOR GFR 1.76 MG/DL (0.70-1.30); POTASSIUM SERUM 4.5 MEQ/L (3.5-5.1)
[2018-12-26] MEDS: APIXABAN 2.5 MG TAB (ELIQUIS) PO SCH ×2 (08:03→20:54)
[2018-12-26] MEDS: ESCITALOPRAM OXALATE 10 MG TAB (LEXAPRO) PO SCH (08:03)
[2018-12-26] MEDS: FERROUS SULFATE 325MG TAB PO SCH (08:03)
[2018-12-26] MEDS: TAMSULOSIN 0.4 MG CAP PO SCH (08:03)
[2018-12-26] MEDS: VITAMIN D 1,000 INTERNATIONAL UNITS TABLET PO SCH (08:03)
[2018-12-26] MEDS: buPROPion (WELLBUTRIN SR) 100 MG SR TAB PO SCH (08:03)
[2018-12-26] MEDS: PREGABALIN 75 MG CAP(LYRICA) PO SCH (08:03)
[2018-12-26] MEDS: AMIODARONE 200 MG TAB (PACERONE) PO SCH (08:03)
[2018-12-26] MEDS: OMEPRAZOLE 20 MG CAP PO SCH (08:03)
[2018-12-26] MEDS: HumaLOG INSULIN (NovoLOG) PER UNIT SC SCH ×4 (08:04→20:54)
[2018-12-26] MEDS: LEVEMIR (INSULIN DETEMIR) 1 UNITS/0.01ML SC SCH ×2 (08:04→20:54)
[2018-12-26] MEDS: NYSTATIN 100,000 UNITS/GM TOPICAL PWD 15 GM TOP SCH ×2 (08:05→20:54)
[2018-12-26 14:00] VITALS: BP 113/64
--- NOTE | 2018-12-26 14:38 | IPN ---
DATE: 12/26/2018 Mr. Mills is seen this morning on his bedside. He is sitting in the recliner chair knitting. He denies any nausea, vomiting, fever or chills. His dyspnea has improved and he reports that he was able to get up and walk to the bathroom with the walker. He did undergo dialysis yesterday and 3 liters fluid was removed again. His weight is down by 10 kg during last 5 days. 10.5 liters fluid has been removed with dialysis in last 5 days. His head is atraumatic. Neck is supple and without JVD or thyroid enlargement. There is no oral thrush or ulcers. Heart: Sounds are regular and lungs sound much clear now without any wheezing or rales. Abdomen: Soft, nontender and bowel sounds are present. Extremities: Without any cyanosis or clubbing. Neurologically he is awake, alert and oriented times three. Today's labs show WBC count 6.2, hemoglobin 9.9 and hematocrit 32.5. Platelets 203. Sodium 137, potassium 4.5, CO2 30, BUN 32 and creatinine 1.76. PROBLEMS: 1. Acute renal failure superimposed on chronic renal disease. The patient has oliguric renal failure with only 350 mL urine output yesterday. His maximum urine output was 1000 mL on December 23. At this point he is still dialysis dependent. However likely to have improvement in his kidney function. At this point we will watch his renal function and urine output for next couple of days and see how he does. There is no emergent indication for dialysis today. 2. Congestive heart failure. His volume status has improved with more than 10 liters fluid removed during last week. Now we will watch him and see how he does. He tells me that his urine output seems to be improving. Hdez catheter has been removed and nursing staff needs to accurately records his urine. 3. Anemia. His anemia has been stable and we will continue to watch and manage with dialysis. No emergent indication for any intervention today. 4. Generalized weakness and deconditioning. The patient is going to need physical therapy as he is very weak and needs to start ambulating independently.
--- NOTE | 2018-12-26 16:51 | IPN ---
DATE: 12/26/2018 SUBJECTIVE: Patient is seen and examined in the room today. During the encounter, patient is not on oxygen, patient denies any respiratory distress. Patient has noticed decreased lower extremity swelling. Denies any fever or chills. Patient stated he is able to urinate by himself. Denies any suprapubic discomfort or distention. OBJECTIVE: VITAL SIGNS: Temperature 97.1, pulse 79, respiratory rate 20, blood pressure 118/69, pulse oximetry 97% with 1 liter oxygen. GENERAL: No sign of acute distress, patient alert and awake. HEENT: Normocephalic, atraumatic. Extraocular motors grossly intact. CARDIOVASCULAR: Positive S1, S2, regular rate. LUNGS: Clear to auscultation bilaterally. ABDOMEN: Soft, nontender, bowel sounds present. MUSCULOSKELETAL: There is some mild residual edema in the dependent areas. LABORATORY DATA: WBC 6.3, hemoglobin 9.9, hematocrit 32.5, platelet count 203, sodium 137, potassium 4.5, chloride 102, carbon dioxide 30, BUN 32, creatinine 1.76, GFR 41, fasting glucose 103, calcium 7.9. ASSESSMENT AND PLAN: 1. Acute hypoxia secondary to decompensated diastolic congestive heart failure. Currently, patient is on dialysis schedule and patient has had more than 10 kg fluid loss in the last 5 days through dialysis. Will continue to titrate oxygen as tolerated. Patient does demonstrate significant improvement in his breathing. 2. Acute renal failure on chronic renal disease. Patient has been receiving hemodialysis. Nephrology is consulted. Will continue to assess patient's renal function. Continue to monitor intake and output and renal function. 3. Decompensated diastolic heart failure. Patient has been receiving several sessions of hemodialysis ultrafiltration. Fluid status is improving. Patient still demonstrates some signs of fluid overload. 4. Chronic atrial fibrillation, on amiodarone. Heart rate in satisfactory range, on Eliquis. 5. Insulin-dependent diabetes with neuropathy. Patient on Levemir. On sliding scale. On consistent carbohydrate diet. On Lyrica for neuropathy. 6. Coronary artery disease status post percutaneous coronary intervention (PCI), on Lipitor. 7. Hypertension. Blood pressure in satisfactory range. Patient's fluid status has been adjusted through dialysis. 8. Dyslipidemia. Continue statin. 9. Depression, on Wellbutrin and Lexapro. 10. Gastroesophageal reflux disease, on omeprazole. 11. BPH, on Flomax. A few days ago, patient did demonstrate brief urinary retention status post a few trials of straight catheterizations. Currently, patient does not demonstrate signs of urinary retention. Continue to monitor. 12. Recent right hip fracture status post surgical repair. 13. History of bradycardia status post pacemaker placement. 14. Anemia of chronic disease. No sign of active bleeding. Continue to monitor hemoglobin and hematocrit. 15. Deep venous thrombosis (DVT) prophylaxis, on Eliquis.
[2018-12-26] MEDS: ATORVASTATIN 10 MG TAB PO SCH (20:54)
[2018-12-26 22:00] VITALS: BP 131/76
[2018-12-27 06:00] VITALS: BP 130/77
[2018-12-27 06:29] LABS: HEMOGLOBIN 10.3 g/dl (13.5-17.5); MEAN CORPUSCULAR HEMOGLOBIN 27.7 pg (27.0-33.0); MEAN CORPUSCULAR HGB CONC 30.3 g/dl (32.0-36.5); MEAN CORPUSCULAR VOLUME 91.4 fl (80.0-96.0); PLATELET COUNT, AUTOMATED 220 10^3/uL (150-450); RED BLOOD COUNT 3.72 10^6/uL (4.30-6.10); WHITE BLOOD COUNT 6.2 10^3/uL (4.0-10.0)
[2018-12-27 06:53] LABS: CALCIUM LEVEL 8.1 MG/DL (8.8-10.2); CREATININE FOR GFR 1.86 MG/DL (0.70-1.30); GLOMERULAR FILTRATION RATE 38.4 (>42); POTASSIUM SERUM 4.4 MEQ/L (3.5-5.1)
[2018-12-27] MEDS: LEVEMIR (INSULIN DETEMIR) 1 UNITS/0.01ML SC SCH ×2 (09:12→21:54)
[2018-12-27] MEDS: HumaLOG INSULIN (NovoLOG) PER UNIT SC SCH ×4 (09:12→21:00)
[2018-12-27] MEDS: AMIODARONE 200 MG TAB (PACERONE) PO SCH (09:13)
[2018-12-27] MEDS: VITAMIN D 1,000 INTERNATIONAL UNITS TABLET PO SCH (09:13)
[2018-12-27] MEDS: NYSTATIN 100,000 UNITS/GM TOPICAL PWD 15 GM TOP SCH ×2 (09:13→21:00)
[2018-12-27] MEDS: OMEPRAZOLE 20 MG CAP PO SCH (09:13)
[2018-12-27] MEDS: FERROUS SULFATE 325MG TAB PO SCH (09:13)
[2018-12-27] MEDS: TAMSULOSIN 0.4 MG CAP PO SCH (09:13)
[2018-12-27] MEDS: APIXABAN 2.5 MG TAB (ELIQUIS) PO SCH ×2 (09:13→21:54)
[2018-12-27] MEDS: ESCITALOPRAM OXALATE 10 MG TAB (LEXAPRO) PO SCH (09:13)
[2018-12-27] MEDS: buPROPion (WELLBUTRIN SR) 100 MG SR TAB PO SCH (09:13)
[2018-12-27] MEDS: PREGABALIN 75 MG CAP(LYRICA) PO SCH (09:13)
--- NOTE | 2018-12-27 11:46 | IPN ---
DATE: 12/27/2018 Mr. Mills is seen this morning on his bedside. He is laying in the bed and reports shortness of breath on ambulating. He denies any nausea or vomiting. He feels that is urine output is improving. PHYSICAL EXAMINATION: Temperature 97.4 degrees Fahrenheit, heart rate 80 per minute and respiratory rate 20 per minute. Blood pressure 130/77 mmHg and oxygen saturation 93% on 1 liter oxygen. Intact and output records from yesterday showed total intake 1110 and output only 55 mL. Today so far his urine output is 725 mL. His weight went up by 1.3 kg since yesterday. His head is atraumatic. Neck veins are difficult to be assessed. There is no oral thrush or ulcers. Heart rounds are irregular. Lungs with diminished breath sounds bilaterally. Abdomen soft and nontender. Bowel sounds are normal. Extremities are no cyanosis or clubbing. Neurologically, he is awake, alert, and at his baseline mentation. LABS: Today showed WBC count 6.2, hemoglobin 10.3 and hematocrit of 34.0, platelets are 220. Sodium 137, potassium 4.4, CO2, BUN 37, creatinine 1.86. Calcium now is 8.1. PROBLEMS: 1. Acute on chronic congestive heart failure: His volume status improved with aggressive fluid removal. During dialysis in one week removed about 10.5 liters. He was positive yesterday as urine output is still not adequate. We will watch today and see how his urine output goes. There is no emergent need for dialysis today. 2. Acute renal failure, superimposed on chronic kidney disease. Patient was oliguric initially and did not respond to high dose diuretics, however, he seems to be diuresing now even without diuretics. I would re-evaluate him tomorrow for need for dialysis. There is no emergent need for dialysis today. 3. Anemia: His anemia is gradually improving and stable. No urgent intervention is indicated. 4. Generalized weakness and deconditioning: Patient remains dependent on nursing staff for most of his care. He is still very weak and not able to get up himself and get going. He is likely to benefit from physical therapy.
[2018-12-27 14:00] VITALS: BP 118/57
--- NOTE | 2018-12-27 15:42 | IPNPDOC ---
Text Note Date of Service The patient was seen on 12/27/18. NOTE SUBJECTIVE: Patient is seen and examined in the room today. Patient is on 1L oxygen today. He denies productive cough. Denies fever or chill. He feels lower extremity swellings are improving. He denies any difficulty with urination. OBJECTIVE: VITAL SIGNS: Listed below. GENERAL: No sign of acute distress, patient alert and awake. HEENT: Normocephalic, atraumatic. Extraocular motors grossly intact. CARDIOVASCULAR: Positive S1, S2, regular rate. LUNGS: Clear to auscultation bilaterally. ABDOMEN: Soft, nontender, bowel sounds present. MUSCULOSKELETAL: Residual edemas in the dependent areas. LABORATORY DATA: Listed below ASSESSMENT AND PLAN: # Decompensated diastolic congestive heart failure. - Patient started on dialysis during this hospitalization. Last dialysis was on 12/25/18. Multiple dialysis and ultrafiltration performed in the last few days, and patient has had significant fluid removal. - Continue titrating oxygen as tolerated. #. Acute renal failure on chronic renal disease. - Nephrology is consulted. Patient started on dialysis since this hospitalization. Will continue to assess patient's renal function. Continue to monitor intake and output and renal function. #. Chronic atrial fibrillation - On amiodarone. Average heart rate is in satisfactory range, on Eliquis. #. Insulin-dependent diabetes with neuropathy. - Patient on Levemir. On sliding scale. On consistent carbohydrate diet. On Lyrica for neuropathy. #. Coronary artery disease - status post percutaneous coronary intervention (PCI). On Lipitor. #. Hypertension. - Blood pressure in satisfactory range. Fluid removal through dialysis. Patient is no on blood pressure medication. #. Dyslipidemia. - Continue statin. #. Depression, - On Wellbutrin and Lexapro. #. Gastroesophageal reflux disease - On omeprazole. #. BPH - On Flomax. - Patient had urinary retention previously. Patient required few straight catheterizations. Continue to monitor. No recurrence of urinary retention. #. Recent right hip fracture status post surgical repair. #. History of bradycardia status post pacemaker placement. #. Anemia of chronic disease. - No sign of active bleeding. Continue to monitor hemoglobin and hematocrit. #. Deep venous thrombosis (DVT) prophylaxis, on Eliquis. VS,Fishbone, I+O VS, Fishbone, I+O Laboratory Tests 12/27/18 05:27 Red Blood Count 3.72 L, Mean Corpuscular Volume 91.4, Mean Corpuscular Hemoglobin 27.7, Mean Corpuscular Hemoglobin Concent 30.3 L, Red Cell Distribut ion Width 15.9 H, Calcium Level 8.1 L Vital Signs Date Time Temp Pulse Resp B/P (MAP) Pulse Ox O2 Delivery O2 Flow Rate FiO2 12/27/18 14:00 98.1 76 18 118/57 (51) 92 1.0 I&O- Last 24 Hours up to 6 AM 12/27/18 06:00 Intake Total 1060 ml Output Total 900 ml Balance 160 ml RIZWAN WHITE DO Dec 27, 2018 15:42
--- NOTE | 2018-12-27 17:14 | REP ---
Portable chest, 04:41 p.m., single AP semi upright view: Comparison is 12/17/2018. There is a right IJ central venous catheter with the tip at the confluence of the superior vena cava and right atrium, as an interval change. There is no pneumothorax. There are bibasilar densities, unchanged. There is marked cardiomegaly and dual chamber pacemaker, unchanged. Impression: Cardiomegaly, bibasilar densities and pacemaker are unchanged. There is a new right IJ central venous catheter as described. No pneumothorax. Electronically Signed by Sammy Kennedy MD 12/27/2018 05:05 P
[2018-12-27] MEDS: ATORVASTATIN 10 MG TAB PO SCH (21:54)
[2018-12-27 22:00] VITALS: BP 121/72
[2018-12-28 06:00] VITALS: BP 122/73
[2018-12-28] MEDS: ESCITALOPRAM OXALATE 10 MG TAB (LEXAPRO) PO SCH (06:02)
[2018-12-28] MEDS: VITAMIN D 1,000 INTERNATIONAL UNITS TABLET PO SCH (06:02)
[2018-12-28] MEDS: FERROUS SULFATE 325MG TAB PO SCH (06:02)
[2018-12-28] MEDS: AMIODARONE 200 MG TAB (PACERONE) PO SCH (06:02)
[2018-12-28] MEDS: buPROPion (WELLBUTRIN SR) 100 MG SR TAB PO SCH (06:03)
[2018-12-28] MEDS: TAMSULOSIN 0.4 MG CAP PO SCH (06:03)
[2018-12-28] MEDS: PREGABALIN 75 MG CAP(LYRICA) PO SCH (06:03)
[2018-12-28] MEDS: OMEPRAZOLE 20 MG CAP PO SCH (06:03)
[2018-12-28] MEDS: APIXABAN 2.5 MG TAB (ELIQUIS) PO SCH ×2 (06:03→21:32)
[2018-12-28] MEDS: NYSTATIN 100,000 UNITS/GM TOPICAL PWD 15 GM TOP SCH ×2 (06:03→21:32)
[2018-12-28 06:10] LABS: HEMATOCRIT 35.5 % (42.0-52.0); HEMOGLOBIN 10.4 g/dl (13.5-17.5); MEAN CORPUSCULAR HEMOGLOBIN 26.9 pg (27.0-33.0); MEAN CORPUSCULAR HGB CONC 29.3 g/dl (32.0-36.5); MEAN CORPUSCULAR VOLUME 91.7 fl (80.0-96.0); PLATELET COUNT, AUTOMATED 216 10^3/uL (150-450); RED BLOOD COUNT 3.87 10^6/uL (4.30-6.10); WHITE BLOOD COUNT 6.2 10^3/uL (4.0-10.0)
[2018-12-28 06:28] LABS: CALCIUM LEVEL 7.9 MG/DL (8.8-10.2); CREATININE FOR GFR 1.6 MG/DL (0.70-1.30); GLOMERULAR FILTRATION RATE 45.7 (>42); POTASSIUM SERUM 4.7 MEQ/L (3.5-5.1)
[2018-12-28] MEDS: LEVEMIR (INSULIN DETEMIR) 1 UNITS/0.01ML SC SCH ×2 (08:40→21:00)
[2018-12-28] MEDS: HumaLOG INSULIN (NovoLOG) PER UNIT SC SCH ×4 (08:40→20:36)
[2018-12-28] MEDS ORDERED: FUROSEMIDE 40 MG/4 ML VIAL (J1940) IV ONE (10:00)
--- NOTE | 2018-12-28 18:34 | IPNPDOC ---
Date Seen The patient was seen on 12/28/18. Progress Note SUBJECTIVE: Patient is seen this morning resting comfortably in his bed. He denies any worsening shortness of breath or productive cough. He does admit to some weakness, but is able to ambulate to the bathroom and chair. He discussed how he does not wish to return to [facility] because he says he was only there 2.5 days before he ended up back here and that they gave up his room. He says that his grandson and granddaughter would take care of him at home. Nursing reported no new overnight events. Not cleared by PT for safe for discharge OBJECTIVE: VITAL SIGNS: Listed below. GENERAL: Alert, cooperative, no acute distress HEENT: EOMI, PERRLA, moist mucous membranes CARDIOVASCULAR: Distant heart sounds. Normal S1 and S2 LUNGS: Decreased breath sounds throughout, some expiratory wheezing ABDOMEN: Soft, nontender, bowel sounds present. MUSCULOSKELETAL: Minimal edema in peripheral extremities LABORATORY DATA: Listed below ASSESSMENT AND PLAN: Decompensated diastolic congestive heart failure (Improving) - Patient reports SOB and cough are improving - Patient started on dialysis during this hospitalization with fluid removal, Multiple dialysis and ultrafiltrations performed during admission with significant fluid removal - Fluid restriction in place - Oxygen titrated to 1 L Acute renal failure on chronic renal disease. - Cr has down trended to 1.6, at baseline - Continue to monitor renal function - Dialysis held today (last dialysis 12/25/18) - Nephrology is consulted, appreciate their recommendations Chronic atrial fibrillation - Rate controlled. - c/w home amiodarone - Anticoagulation: Eliquis - LUCIUS VASc: 5 Insulin-dependent diabetes with neuropathy. - Patient on Levemir and ISS sliding scale - Consistent carbohydrate diet. - c/w home Lyrica for neuropathy. Coronary artery disease - status post percutaneous coronary intervention (PCI). On Lipitor. Hypertension. - Blood pressure in satisfactory range. - Patient is no on blood pressure medication. Dyslipidemia. - c/w home statin Depression, - c/w home Wellbutrin and Lexapro. GERD - c/w home omeprazole BPH - c/w home Flomax. - Patient had urinary retention previously. Patient required few straight catheterizations. Continue to monitor. No recurrence of urinary retention. Recent right hip fracture -s/p surgical repair History of symptomatic bradycardia secondary to First degree AV block -s/o atrial and ventricular pacemaker Anemia of chronic disease. - No sign of active bleeding, hgb stable -Continue to monitor H/H DVT prophylaxis -Eliquis. Pending: PT Clearance. VS, I&O, 24H, Fishbone Vital Signs/I&O Vital Signs Date Time Temp Pulse Resp B/P (MAP) Pulse Ox O2 Delivery O2 Flow Rate FiO2 12/28/18 09:00 1.0 12/28/18 06:00 97.2 79 20 122/73 (89) 96 I&O- Last 24 Hours up to 6 AM 12/28/18 07:00 Intake Total 1290 ml Output Total 1175 ml Balance 115 ml Laboratory Data 24H LABS Laboratory Tests 2 12/27/18 16:29: Bedside Glucose (Misc Panel) 162H 12/27/18 20:18: Bedside Glucose (Misc Panel) 120H 12/28/18 05:29: Nucleated Red Blood Cells % (auto) 0.0, Anion Gap 4L, Glomerular Filtration Rate 45.7, Blood Urea Nitrogen 36H, Creatinine 1.60H, Sodium Level 139, Potassium Level 4.7, Chloride Level 106, Carbon Dioxide Level 29, Calcium Level 7.9L 12/28/18 11:58: Bedside Glucose (Misc Panel) 139H CBC/BMP Laboratory Tests 12/28/18 05:29 Red Blood Count 3.87 L, Mean Corpuscular Volume 91.7, Mean Corpuscular Hemoglobin 26.9 L, Mean Corpuscular Hemoglobin Concent 29.3 L, Red Cell Distribution Width 15.9 H, Calcium Level 7.9 L Microbiology Microbiology 12/24/18 MRSA Screen - Final, Complete GME ATTESTATION GME ATTESTATION My faculty preceptor for this patient encounter was physically present during the encounter and was fully available. All aspects of the patient interview, examination, medical decision making process, and medical care plan development were reviewed and approved by the faculty preceptor. The faculty preceptor is aware and concurs with the plan as stated in the body of this note and will atte st to such by his/her cosignature. ATTENDING NOTE I saw and evaluated the patient. I agree with the findings and plan of care as documented in the resident's note GME ATTESTATION GME ATTESTATION My faculty preceptor for this patient encounter was physically present during the encounter and was fully available. All aspects of the patient interview, examination, medical decision making process, and medical care plan development were reviewed and approved by the faculty preceptor. The faculty preceptor is aware and concurs with the plan as stated in the body of this note and will attest to such by his/her cosignature. ATTENDING NOTE I saw and evaluated the patient. I agree with the findings and plan of care as documented in the resident's note ZARINA SWAIN S-III Dec 28, 2018 14:08 ANA SIMPSON DO Dec 28, 2018 18:34 DEX JENSEN MD Jan 11, 2019 17:18
--- NOTE | 2018-12-28 19:36 | IPN ---
DATE: 12/28/2018 Mr. Mills is seen this morning on his bedside. He is lying in the bed using oxygen via nasal cannula. He is still weak but feeling better today. Yesterday he had at least 1 liter of urine output. She denies any nausea, vomiting, fever or chills. PHYSICAL EXAMINATION: Temperature 97.2 degrees Fahrenheit, heart rate 80 per minute and respiratory rate 20 per minute. Blood pressure 122/73 mmHg and oxygen saturation 96% on 1 liter. His head is atraumatic. Neck veins are difficult to be assessed. There is no oral thrush or ulcers. Heart sounds are regular and lungs with diminished breath sounds and bibasilar rales. Abdomen: Obese, soft and nontender. Extremities: Have no cyanosis or clubbing. Neurologically he is awake, alert and oriented times three. Today's labs show WBC count 6.2, hemoglobin 10.4 and hematocrit 35.1. Platelets 216. Sodium 139, potassium 4.7, CO2 29, BUN 36 and creatinine 1.6. Glucose 109 and calcium 7.9. PROBLEM #1: Acute renal failure superimposed on chronic kidney disease. The patient seems to have improvement in kidney function. His creatinine did come down from 1.8 yesterday to 1.6 today. He also has improved urine output. I am going to hold off on further plans for dialysis. We will check his renal profile again tomorrow morning. PROBLEM #2: Congestive heart failure. Volume status has improved significantly since he started dialysis. He is probably still mildly volume overloaded. We are going to give him one dose of Lasix 40 mg intravenously today and see how he responds. PROBLEM #3: Anemia. His anemia has been stable and does not need any urgent intervention. He has been receiving Aranesp during dialysis. PROBLEM #4: Generalized weakness and deconditioning. The patient is likely to require subacute rehab. He was in custodial prior to this admission following his hip surgery. He is likely to go back to custodial for subacute rehab. I would suggest to hold off his discharge today in view of improving kidney function and making decisions about dialysis.
[2018-12-28] MEDS: ATORVASTATIN 10 MG TAB PO SCH (21:32)
[2018-12-28 22:00] VITALS: BP 132/76
[2018-12-29 06:00] VITALS: BP 131/74
[2018-12-29] MEDS: HumaLOG INSULIN (NovoLOG) PER UNIT SC SCH (08:00)
[2018-12-29 08:07] LABS: HEMATOCRIT 36.3 % (42.0-52.0); HEMOGLOBIN 10.8 g/dl (13.5-17.5); MEAN CORPUSCULAR HGB CONC 29.8 g/dl (32.0-36.5); PLATELET COUNT, AUTOMATED 205 10^3/uL (150-450); RED BLOOD COUNT 3.86 10^6/uL (4.30-6.10); WHITE BLOOD COUNT 5.7 10^3/uL (4.0-10.0)
[2018-12-29 08:19] LABS: ALBUMIN 2.5 GM/DL (3.2-5.2); CREATININE FOR GFR 1.75 MG/DL (0.70-1.30); GLOMERULAR FILTRATION RATE 41.2 (>42); PHOSPHORUS LEVEL 3.3 MG/DL (2.5-4.9); POTASSIUM SERUM 4.2 MEQ/L (3.5-5.1)
[2018-12-29] MEDS: NYSTATIN 100,000 UNITS/GM TOPICAL PWD 15 GM TOP SCH (08:45)
[2018-12-29] MEDS: PREGABALIN 75 MG CAP(LYRICA) PO SCH (08:45)
[2018-12-29] MEDS: OMEPRAZOLE 20 MG CAP PO SCH (08:45)
[2018-12-29] MEDS: TAMSULOSIN 0.4 MG CAP PO SCH (08:45)
[2018-12-29] MEDS: APIXABAN 2.5 MG TAB (ELIQUIS) PO SCH (08:46)
[2018-12-29] MEDS: buPROPion (WELLBUTRIN SR) 100 MG SR TAB PO SCH (08:46)
[2018-12-29] MEDS: AMIODARONE 200 MG TAB (PACERONE) PO SCH (08:46)
[2018-12-29] MEDS: VITAMIN D 1,000 INTERNATIONAL UNITS TABLET PO SCH (08:46)
[2018-12-29] MEDS: FERROUS SULFATE 325MG TAB PO SCH (08:46)
[2018-12-29] MEDS: ESCITALOPRAM OXALATE 10 MG TAB (LEXAPRO) PO SCH (08:46)
[2018-12-29] MEDS: LEVEMIR (INSULIN DETEMIR) 1 UNITS/0.01ML SC SCH (10:27)
[2018-12-29] MEDS ORDERED: LYRI75CA PO (11:37)
--- NOTE | 2018-12-29 13:54 | DS.PDOC ---
Discharge Summary General Date of Admission Dec 13, 2018 at 01:33 Date of Discharge 12/29/2018 Discharge Summary PROCEDURES PERFORMED DURING STAY: Tunneled hemodialysis catheter 12/20/2018 -Dr. Sanchez ADMITTING DIAGNOSES: Acute respiratory failure with hypoxia Atrial fibrillation Hyperlipidemia Diabetes with what appears to be neuropathy Chronic kidney disease (CKD) Iron deficiency anemia Neuropathy BPH Gastroesophageal reflux disease: DISCHARGE DIAGNOSES: Decompensated diastolic congestive heart failure Acute renal failure on chronic renal disease. Chronic atrial fibrillation Insulin-dependent diabetes with neuropathy. Coronary artery disease Hypertension. Dyslipidemia. Depression, GERD BPH Recent right hip fracture History of symptomatic bradycardia secondary to First degree AV block Anemia of chronic disease. COMPLICATIONS/CHIEF COMPLAINT: Acute Respiratory Failure With Hypoxia. HISTORY OF PRESENT ILLNESS: The patient is a 68-year-old male, significant past medical history of diastolic congestive heart failure (CHF), diabetes, coronary artery disease (CAD), status post PCI, hypertension, hyperlipidemia, atrial fibrillation (AFib) on Eliquis, depression, gastroesophageal reflux disease (GERD), BPH. He also had a recent fall and a fracture open reduction, internal fixation (ORIF) at [facility] September 2018 and was noted to be bradycardic and had a pacemaker placed approxim ately a week and a half ago. He subsequently was discharged to [facility] re[facility]. During rehab it states once the patient attempted rehab he felt pain in the leg. He felt somewhat weak, dizziness and he became somewhat hypoxic. Patient's nurses say symptomatically he complained of shortness of breath but when removed of oxygen he does desaturate down o the mid to upper 80s. He states he has been a having a cough of yellow productive sputum. He denies any chest pain, abdominal pain, constipation, diarrhea, or urinary symptoms. CT shows bilateral small to moderate pleural effusion, what appears to be atelectasis versus consolidation. I believe differential on this patient is either atelectasis, mild CHF exacerbation or brewing pneumonia with apparent pneumonic effusion which is less likely. HOSPITAL COURSE: Patient was admitted to the hospital service for acute respiratory failure secondary decompensated heart failure with acute renal failure. At first he was diuresed with IV Lasix but his creatinine function bumped while on it. Nephrology was following the case and adjustments were made but his volume status was suboptimal. His renal function continued to deteriorate with a high of 3.5 for his creatinine. He then had a tunneled hemodialysis catheter placed on 12/20/[address] Sanchez so he can start hemodialysis after. After one week of hemodialysis he had roughly about 10.5 L of fluid removed. His oliguric status improved and on the day prior to discharge he had at least 2 L of urine output. The patient did have some deconditioning while admitted he worked with PT and was recommended for him to return [facility] the [facility] for [facility]. Patient was agreeable on the day of discharge to go back to the [facility] for the therapy. He is to adhere to a stri ct consisting carbohydrate diet and fluid restriction of 1800 mL daily. Adjustments were made to to his Lyrica he is to reduce from 150 mg twice a day to 75 mg daily. Remaining of his medication stated the same. He is to follow-up with his PCP in 7-10 days and nephrology in 2-3 weeks. DISCHARGE MEDICATIONS: Please see below. ALLERGIES: Please see below. PHYSICAL EXAMINATION ON DISCHARGE: VITAL SIGNS: Please see below. GENERAL: Alert, cooperative, no acute distress HEENT: EOMI, PERRLA, moist mucous membranes CARDIOVASCULAR: Distant heart sounds. Normal S1 and S2 LUNGS: Decreased breath sounds throughout but, no audible wheezing, rhonchi or Rales ABDOMEN: Soft, nontender, bowel sounds present. Morbidly obese abdomen MUSCULOSKELETAL: Minimal edema in peripheral extremities LABORATORY DATA: Please see below. IMAGIN12/12/2018 Chest x-ray Impression: Cardiomegaly consistent with CHF. Small bilateral effusions. Plate-like atelectasis left perihilar region. Vascular ultrasound left lower leg IMPRESSION: No sonographic evidence of deep vein thrombosis. CT chest IMPRESSION: 1. Limited noncontrast examination. 2. Small to moderate, loculated pleural effusions with associated subsegmental bibasilar consolidations, likely due to atelectasis. 3. Small pericardial effusion. 4. Additional findings, as above. 12/13/2018 CT head IMPRESSION: 1. No CT evidence of acute intracranial pathology. 12/17/2018 Chest x-ray Impression: Cardiomegaly and CHF with bibasilar opacities and moderate pleural effusions. Renal ultrasound Impression: 1. Chronic medical renal disease without hydronephrosis. 12/21/2018 Extremity arterial study Mild bilateral atheromatous plaquing without evidence for significant stenosis. Decreased velocities suggest cardiac dysfunction 12/27/2018 Chest x-ray Impression: Cardiomegaly, bibasilar densities and pacemaker are unchanged. There is a new right IJ central venous catheter as described. No pneumothorax. ACTIVITY: As tolerated. DIET: Consistent carbohydrate 1800 mL load restriction DISPOSITION: [facility]. DISCHARGE INSTRUCTIONS: 1. Follow-up with primary care provider in 7-10 days 2. Follow-up with nephrology in 2-3 weeks 3. Stop Lyrica 150 mg twice a day 4. Start Lyrica 75 mg daily 5. If symptoms return or worsen please call your PCP or return to the ER. DISCHARGE CONDITION: Stable TIME SPENT ON DISCHARGE: Greater than 40 minutes. Vital Signs/I&Os Vital Signs Date Time Temp Pulse Resp B/P (MAP) Pulse Ox O2 Delivery O2 Flow Rate FiO2 12/29/18 06:00 97.6 76 21 131/74 (93) 94 2.0 I&O- Last 24 Hours up to 6 AM 12/29/18 06:00 Intake Total 990 ml Output Total 2150 ml Balance -1160 ml Laboratory Data Labs 24H Laboratory Tests 2 12/28/18 20:19: Bedside Glucose (Misc Panel) 91 12/29/18 06:28: Bedside Glucose (Misc Panel) 113H 12/29/18 07:45: Blood Urea Nitrogen 38H, Creatinine 1.75H, Sodium Level 142, Potassium Level 4.2, Chloride Level 107, Carbon Dioxide Level 32, Anion Gap 3L, Glomerular Filtration Rate 41.2L, Calcium Level 8.0L, Phosphorus Level 3.3, Albumin 2.5L 12/29/18 07:46: Nucleated Red Blood Cells % (auto) 0.0 12/29/18 10:26: Bedside Glucose (Misc Panel) 201H CBC/BMP Laboratory Tests 12/29/18 07:45 Anion Gap 3 L 12/29/18 07:46 Red Blood Count 3.86 L, Mean Corpuscular Volume 94.0, Mean Corpuscular Hemoglo bin 28.0, Mean Corpuscular Hemoglobin Concent 29.8 L, Red Cell Distribution Width 16.1 H FSBS Laboratory Tests Test 12/28/18 20:19 12/29/18 06:28 12/29/18 10:26 Range/Units Bedside Glucose (Misc Panel) 91 113 201 83-110 MG/DL Microbiology Microbiology 12/24/18 MRSA Screen - Final, Complete Discharge Medications Scheduled Amiloride HCl (Amiloride HCl) 5 Mg Tab, 5 MG PO DAILY, (Reported) Amiodarone HCl (Amiodarone HCl) 200 Mg Tab, 200 MG PO DAILY, (Reported) Apixaban (Eliquis) 2.5 Mg Tab, 2.5 MG PO BID, (Reported) Ascorbic Acid (Vitamin C) 250 Mg Tablet, 250 MG PO DAILY, (Reported) Atorvastatin Calcium (Atorvastatin Calcium) 10 Mg Tab, 10 MG PO QHS, (Reported) Bupropion Hcl (Bupropion HCl Sr) 100 Mg Tab, 100 MG PO DAILY, (Reported) Cholecalciferol (Vitamin D3) (Vitamin D3) 1,000 Unit Tab, 1,000 UNIT PO DAILY, (Reported) Escitalopram Oxalate (Escitalopram Oxalate) 10 Mg Tab, 10 MG PO DAILY, (Reported) Ferrous Sulfate (Iron) 325 Mg Tab, 325 MG PO QHS, (Reported) Furosemide (Lasix) 80 Mg Tablet, 1 TAB PO BID Glucagon,Human Recombinant (Glucagon Emergency Kit) 1 Mg Kit, 1 MG IM ASDIRECTED, (Reported) Insulin Glargine,Hum.rec.anlog (Basaglar Kwikpen U-100) 100 Unit/Ml Inj, 28 UNIT SC QHS, (Reported) INCREASE FROM 25 UNITS Insulin Lispro (Humalog Kwikpen U-100) 100 Unit/Ml Inj, 1 UNITS SC TID, (Reported) PER SLIDING SCALE Nystatin (Nystatin Powder) 100,000 Unit/Gm Pow, 1 DOSE TOP BID, (Reported) APPLY TO ABDOMINAL FOLDS AND GROIN Omeprazole (Omeprazole) 20 Mg Cap, 20 MG PO DAILY, (Reported) Pregabalin (Lyrica) 75 Mg Capsule, 75 MG PO DAILY Sitagliptin (Januvia) 50 Mg Tab, 50 MG PO QHS, (Reported) Tamsulosin HCl (Flomax) 0.4 Mg Cap, 0.4 MG PO DAILY, (Reported) Tramadol HCl (Tramadol HCl) 50 Mg Tab, 50 MG PO BID, (Reported) Scheduled PRN Acetaminophen (Acetaminophen) 325 Mg Tab, 650 MG PO Q4H PRN for PAIN / FEVER, (Reported) Aluminum/Magnesium/Simeth (Mag-Al Plus Suspension) 30 Ml Susp, 30 ML PO Q6H PRN for HEARTBURN, (Reported) Bisacodyl (Bisacodyl) 10 Mg Sup, 10 MG NE DAILY PRN for CONSTIPATION, (Reported) Milk Of Magnesia (Milk of Magnesia) 2,400 Mg/10 Ml Oral.susp, 30 ML PO DAILY PRN for CONSTIPATION, (Reported) Sodium Phosphate,Gratiot-Dibasic (Enema Ready To Use) 1 Klarissa Klarissa, 1 KLARISSA NE DAILY PRN for CONSTIPATION, (Reported) Allergies Coded Allergies: Penicillins (Verified Allergy, Intermediate, hives, 01/01/19) latex (Verified Allergy, Intermediate, hives, 01/01/19) GME ATTESTATION GME ATTESTATION My faculty preceptor for this patient encounter was physically present during the encounter and was fully available. All aspects of the patient interview, examination, medical decision making process, and medical care plan development were reviewed and approved by the faculty preceptor. The faculty preceptor is aware and concurs with the plan as stated in the body of this note and will attest to such by his/her cosignature. ATTENDING NOTE I saw and evaluated the patient. I agree with the findings and plan of care as documented in the resident's note ANA SIMPSON DO Dec 29, 2018 13:54 DEX JENSEN MD Jan 11, 2019 17:19
--- NOTE | 2018-12-29 19:56 | IPN ---
DATE: 12/29/2018 Mr. Mills is seen this morning on his bedside. He remains weak and has been evaluated by physical therapy this morning. He is not deemed stable for discharge to home and is going to be sent back to [facility]. His granddaughter is present in the room who was somewhat upset about his inability to go home. In any event, the patient had oliguric acute renal failure and congestive heart failure on admission and required temporary dialysis. His volume status improved with aggressive fluid removal last week and this week his urine output improved and kidney function seems to have improved. His creatinine was down to 1.6 yesterday. The patient has no nausea or vomiting and his dyspnea is still persistent requiring oxygen. We feel that he is not going to require dialysis anymore and his Perma-Cath has been removed in view of discharge to [facility] today. PHYSICAL EXAMINATION Temperature 97.6 degrees Fahrenheit, heart rate 76 per minute and respiratory rate 20 per minute. Blood pressure 131/74 mmHg and oxygen saturation 94%. His head is atraumatic. Neck is supple and JVD is not abnormally elevated. He has no oral thrush or ulcers. Heart: Sounds are regular and lungs with slightly diminished breath sounds. Bowel sounds are present and bowel is soft and nontender. Extremities: Have no cyanosis or clubbing. Neurologically he is awake, alert and at his baseline mentation. Today's labs show WBC count 5.7, hemoglobin 10.8 and hematocrit 36.3. Sodium 142, potassium 4.2, CO2 32, BUN 38 and creatinine 1.75. PROBLEMS: 1. Acute renal failure superimposed on chronic kidney disease. The patient has significant improvement in kidney function and is now stable. No dialysis is indicated anymore. He will still need monitoring of kidney function and followup. I would suggest to check his renal profile at least once a week. He should followup in our office within next week. His electrolytes are stable at this time. 2. Congestive heart failure. His volume status has corrected and improved significantly. At present, he is not on any standing dose of diuretic. I would suggest to monitor closely and start diuretic as needed in the [facility]. 3. Anemia. His anemia is stable and does not need any urgent intervention. He did receive Aranesp during his stay here. Now his kidney function has improved and not likely to require further Aranesp dosing. 4. DISPOSITION: From a renal standpoint, the patient can be discharged to [facility] with plan to followup in my office within 1 week.
--- NOTE | 2018-12-29 20:04 | RO ---
DATE OF PROCEDURE: 12/29/2018 INDICATIONS FOR PROCEDURE: Recovery of kidney function following acute renal failure and no need. OPERATIVE PROCEDURE: Removal of right internal jugular vein Perma-Cath. SURGEON: Esthela Santos MD CUSTOMER ADVISOR SPECIALIST: None. ANESTHESIA: None. DESCRIPTION OF PROCEDURE: Informed consent obtained from the patient for removal of Perma-Cath on the bedside. Dressing was removed and sutures removed from the catheter site. Catheter site was cleaned and digital pressure held at the exit site with a roll of 4 x 4 gauze. With gentle persistent pull Perma-Cath was pulled without any difficulty and intact whole catheter came out. Digital pressure was held to secure hemostasis. Pressure dressing applied at the end of procedure. No complications and the patient tolerated the procedure very well.
--- NOTE | 2019-01-19 07:39 | REPIR ---
DATE OF PROCEDURE: 12/20/2018 ATTENDING SURGEON: Dr. Ivy Sanchez HAZARDOUS WASTE TECHNICIAN: Yamilka Motta and Faustina Yeh PREOPERATIVE DIAGNOSES: Chronic renal insufficiency with acute renal failure superimposed requiring renal replacement therapy, CHF. POSTOPERATIVE DIAGNOSES: Chronic renal insufficiency with acute renal failure superimposed requiring renal replacement therapy, CHF. PROCEDURE: Ultrasound-guided right internal jugular vein cannulation, fluoroscopic guided right internal jugular vein 19 cm tip to cuff BioFlo DuraMax tunneled central venous catheter. INDICATIONS: The patient is a 68-year-old male with CHF and acute renal failure with a history of chronic renal insufficiency who requires dialysis. The patient undergo placement of a tunneled central venous catheter, risks, benefits and alternative treatment options were discussed with the patient. ANESTHESIA: Local with was 20 mL of 2% lidocaine mixed with 0.5% Marcaine. FLUORO TIME: 0.3 minutes. CONTRAST: None. COMPLICATIONS: None. DRAINS: None. SPECIMENS: None. IMPLANTS: 19 cm tip to cuff BioFlo DuraMax tunneled central venous catheter in the right internal jugular vein. PROCEDURE: The patient was taken to the angiography suite, placed supine on the angiography table and then prepped and draped in a standard surgical fashion. The right internal jugular vein was cannulated using ultrasound guidance. The catheter was advanced through the introducer sheath which has been positioned in the right internal jugular vein under fluoroscopic guidance and positioned with the tip in the superior vena cava right atrial junction. Catheter had been tunneled through the anterior chest wall. Catheter was secured to the anterior chest using 2-0 Prolene suture. The puncture wound in the low right neck was closed using 3-0 Monocryl. Both ports were aspirated and noted to aspirate easily and then flushed with heparinized saline. Dressings were then applied. The patient tolerated procedure well. All instrument, sponge and needle counts were correct at the end the case. There were no complications. Dr. Sanchez was present for and directed the entire case. The patient was transferred to the holding area and subsequent to the floor in stable condition. The tunneled central venous catheter is stable for hemodialysis access.
== END 2018-12-29 12:40 | DRG 291 ==
LOC: M ED 21:56 → M ED INP 12-13 01:33 → M MSPAV 12-13 03:43
PROVIDERS: ADMIT Internal Medicine; ATTEND Internal Medicine
PROC: 5A1D70Z Performance of Urinary Filtration, Intermittent, Less than 6 Hours Per Day (ICD-10-PCS; principal; 2018-12-20)
PROC: 02HV33Z Insertion of Infusion Device into Superior Vena Cava, Percutaneous Approach (ICD-10-PCS; 2018-12-20)
PROC: 0JH63XZ Insertion of Tunneled Vascular Access Device into Chest Subcutaneous Tissue and Fascia, Percutaneous Approach (ICD-10-PCS; 2018-12-20)
PROC: 05PY33Z Removal of Infusion Device from Upper Vein, Percutaneous Approach (ICD-10-PCS; 2018-12-29)
DX: I13.0 Hypertensive heart and chronic kidney disease with heart failure and stage 1 through stage 4 chronic kidney disease, or unspecified chronic kidney disease (principal); I50.33 Acute on chronic diastolic (congestive) heart failure; G93.41 Metabolic encephalopathy; N17.9 Acute kidney failure, unspecified; E87.1 Hypo-osmolality and hyponatremia; N25.81 Secondary hyperparathyroidism of renal origin; J98.11 Atelectasis; E11.22 Type 2 diabetes mellitus with diabetic chronic kidney disease; I25.10 Atherosclerotic heart disease of native coronary artery without angina pectoris; E78.5 Hyperlipidemia, unspecified; R09.02 Hypoxemia; I48.2 Chronic atrial fibrillation; E11.42 Type 2 diabetes mellitus with diabetic polyneuropathy; F32.9 Major depressive disorder, single episode, unspecified; I44.0 Atrioventricular block, first degree; D50.9 Iron deficiency anemia, unspecified; N18.3 Chronic kidney disease, stage 3 (moderate); K21.9 Gastro-esophageal reflux disease without esophagitis; R53.1 Weakness; D63.1 Anemia in chronic kidney disease; R33.9 Retention of urine, unspecified; N40.1 Benign prostatic hyperplasia with lower urinary tract symptoms; Z95.0 Presence of cardiac pacemaker; Z79.4 Long term (current) use of insulin; Z79.01 Long term (current) use of anticoagulants; Z79.899 Other long term (current) drug therapy; Z95.5 Presence of coronary angioplasty implant and graft; Z88.0 Allergy status to penicillin; Z91.040 Latex allergy status

== ENCOUNTER → 2018-12-12 | Outpatient (REF) | payer MEDICARE, MEDICAID | PROVIDERS: ATTEND Internal Medicine | DX: Z22.322 Carrier or suspected carrier of Methicillin resistant Staphylococcus aureus (principal) ==

== ENCOUNTER 2019-01-01 12:38 | Emergency (ER) | payer MEDICARE, MEDICAID ==
[~2019-01-01] VITALS: Ht 165.1 cm; Wt 113.0 kg
[~2019-01-01 12:38] MED LIST changes: +ACET1TAB55 PO; +ASCO250T PO; +BASA100I SC; +BISA10SU4 PR; +ENEMENE6 PR; +FERR325T82 PO; +FURO20TA2 PO; +GLUC1KIT IM; +HUMA100I5 SC; +MILK120011 PO; +NYST1POW9 TOP; +SITA50TAB PO
[2019-01-01] MEDS ORDERED: FUROSEMIDE 40 MG/4 ML VIAL (J1940) IV ONE (13:15)
[2019-01-01 14:11] LABS: CPK CREATINE PHOSPHOKINASE 64 U/L (39-308); MB/CK RELATIVE INDEX 6.25 (< OR =4); TROPONIN I < 0.02 NG/ML (< 0.10)
[2019-01-01] MEDS ORDERED: MOM30SS PO (15:25)
[2019-01-01] MEDS ORDERED: C-251TAB PO (15:25)
[2019-01-01] MEDS ORDERED: LASI80TA3 PO (15:58)
[2019-01-01 16:17] VITALS: BP 128/63
--- NOTE | 2019-01-02 09:15 | REP ---
Portable chest, 01:13 p.m., single AP view, the patient is upright: Comparisons are the chest CT of 12/12/2018 and portable chest dated 12/27/2018. The right IJ central venous catheter identified on 12/27/2018 has been removed. The patients known bilateral pleural effusions are again identified. Right pleural effusion appears larger. However, the the patient is rotated and this could be artifact. Cardiomegaly is unchanged. Dual-chamber pacemaker is unchanged. Impression: Cardiomegaly, unchanged. Dual chamber pacemaker, unchanged. Bilateral pleural effusions. Right effusion appears larger, however this could be artifact from patient rotation. Electronically Signed by Sammy Kennedy MD 01/01/2019 01:34 P
--- NOTE | 2019-01-02 20:47 | ECGEPIP ---
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
== END 2019-01-01 16:41 | disposition home or self-care (01) ==
LOC: EDBD 12:38 → M ED 12:38
DX: I50.9 Heart failure, unspecified (principal); J90 Pleural effusion, not elsewhere classified; I45.81 Long QT syndrome; I13.0 Hypertensive heart and chronic kidney disease with heart failure and stage 1 through stage 4 chronic kidney disease, or unspecified chronic kidney disease; N18.9 Chronic kidney disease, unspecified; E11.9 Type 2 diabetes mellitus without complications; N40.0 Benign prostatic hyperplasia without lower urinary tract symptoms; I48.91 Unspecified atrial fibrillation; Z79.01 Long term (current) use of anticoagulants; Z79.4 Long term (current) use of insulin; Z79.899 Other long term (current) drug therapy; Z88.0 Allergy status to penicillin; Z91.040 Latex allergy status; Z95.0 Presence of cardiac pacemaker
CPT/HCPCS: 36415; 71045; 80048; 82550; 82553; 83880; 84484; 93005; 96374; 99284; J1940

== ENCOUNTER → 2019-01-03 | Outpatient (REF) ==
[~2019-01-03] MED LIST changes: +C-251TAB PO; +LASI80TA3 PO; +MOM30SS PO
[2019-01-03 08:44] LABS: HEMATOCRIT 38.9 % (42.0-52.0); HEMOGLOBIN 11.4 g/dl (13.5-17.5); MEAN CORPUSCULAR HEMOGLOBIN 27.7 pg (27.0-33.0); MEAN CORPUSCULAR HGB CONC 29.3 g/dl (32.0-36.5); MEAN CORPUSCULAR VOLUME 94.4 fl (80.0-96.0); PLATELET COUNT, AUTOMATED 184 10^3/uL (150-450); RED BLOOD COUNT 4.12 10^6/uL (4.30-6.10); WHITE BLOOD COUNT 6.5 10^3/uL (4.0-10.0)
[2019-01-03 09:09] LABS: CALCIUM LEVEL 8.4 MG/DL (8.8-10.2); CREATININE FOR GFR 1.9 MG/DL (0.70-1.30); GLOMERULAR FILTRATION RATE 37.5 (>42); POTASSIUM SERUM 4.5 MEQ/L (3.5-5.1)
== END ==
LOC: SKLAB3 07:05
PROVIDERS: ATTEND Internal Medicine
DX: N18.9 Chronic kidney disease, unspecified (principal); I50.9 Heart failure, unspecified; I11.0 Hypertensive heart disease with heart failure

== ENCOUNTER → 2019-01-10 | Outpatient (REF) ==
[~2019-01-10] MED LIST changes: +TRAD5TAB PO
[2019-01-10 07:49] LABS: HEMATOCRIT 38.7 % (42.0-52.0); HEMOGLOBIN 11.6 g/dl (13.5-17.5); MEAN CORPUSCULAR HEMOGLOBIN 27.5 pg (27.0-33.0); MEAN CORPUSCULAR VOLUME 91.7 fl (80.0-96.0); PLATELET COUNT, AUTOMATED 141 10^3/uL (150-450); RED BLOOD COUNT 4.22 10^6/uL (4.30-6.10); WHITE BLOOD COUNT 6.4 10^3/uL (4.0-10.0)
[2019-01-10 08:19] LABS: CALCIUM LEVEL 8.3 MG/DL (8.8-10.2); CREATININE FOR GFR 1.59 MG/DL (0.70-1.30); GLOMERULAR FILTRATION RATE 46.1 (>42); MAGNESIUM LEVEL 1.7 MG/DL (1.8-2.4); POTASSIUM SERUM 4.5 MEQ/L (3.5-5.1); URIC ACID 6.5 MG/DL (3.5-7.2)
[2019-01-10 09:54] LABS: TOTAL 25(OH) VITAMIN D 32.9 NG/ML (30.0-100.0)
[2019-01-10 09:55] LABS: PTH INTACT 98.7 PG/ML (18.5-88.0)
== END ==
LOC: SKLAB3 07:00
PROVIDERS: ATTEND Internal Medicine
DX: N18.9 Chronic kidney disease, unspecified (principal)

== ENCOUNTER → 2019-01-17 | Outpatient (REF) ==
[2019-01-17 07:49] LABS: HEMOGLOBIN 12.4 g/dl (13.5-17.5); MEAN CORPUSCULAR HEMOGLOBIN 27.6 pg (27.0-33.0); MEAN CORPUSCULAR VOLUME 88.9 fl (80.0-96.0); PLATELET COUNT, AUTOMATED 177 10^3/uL (150-450); WHITE BLOOD COUNT 6.8 10^3/uL (4.0-10.0)
[2019-01-17 08:13] LABS: CALCIUM LEVEL 8.7 MG/DL (8.8-10.2); CREATININE FOR GFR 2.02 MG/DL (0.70-1.30); GLOMERULAR FILTRATION RATE 34.9 (>42); POTASSIUM SERUM 4.4 MEQ/L (3.5-5.1)
== END ==
LOC: SKLAB3 07:00
PROVIDERS: ATTEND Internal Medicine
DX: I50.9 Heart failure, unspecified (principal)

== ENCOUNTER → 2019-01-20 | Outpatient (REF) ==
[2019-01-20 08:32] LABS: CALCIUM LEVEL 8.4 MG/DL (8.8-10.2); CREATININE FOR GFR 1.84 MG/DL (0.70-1.30); GLOMERULAR FILTRATION RATE 38.9 (>42)
== END ==
LOC: SKLAB3 07:00
PROVIDERS: ATTEND Internal Medicine
DX: I50.9 Heart failure, unspecified (principal)

== ENCOUNTER 2019-01-24 18:50 | Emergency (ER) | payer MEDICARE, MEDICAID ==
[~2019-01-24] VITALS: Ht 167.6 cm; Wt 102.3 kg
[~2019-01-24 18:50] MED LIST changes: -TRAD5TAB PO
[2019-01-24] MEDS ORDERED: TRAD5TAB PO (19:09)
[2019-01-24 21:16] LABS: BASO % 0.3 % (0.0-1.0); EOS # 0.1 10^3/uL (0.0-0.50); EOS % 1.3 % (0.0-3.0); HEMATOCRIT 42.5 % (42.0-52.0); HEMOGLOBIN 13.3 g/dl (13.5-17.5); LYMPH # 1.4 10^3/uL (1.5-4.5); LYMPH % 19.9 % (24.0-44.0); MEAN CORPUSCULAR HEMOGLOBIN 26.7 pg (27.0-33.0); MEAN CORPUSCULAR HGB CONC 31.3 g/dl (32.0-36.5); MEAN CORPUSCULAR VOLUME 85.2 fl (80.0-96.0); MONO # 0.4 10^3/uL (0.0-0.8); MONO % 5.9 % (0.0-5.0); NEUTROPHILS # 5.2 10^3/uL (1.8-7.7); NEUTROPHILS % 72.2 % (36.0-66.0); PLATELET COUNT, AUTOMATED 160 10^3/uL (150-450); RED BLOOD COUNT 4.99 10^6/uL (4.30-6.10); WHITE BLOOD COUNT 7.2 10^3/uL (4.0-10.0)
[2019-01-24 21:31] LABS: ALBUMIN 3.3 GM/DL (3.2-5.2); BILIRUBIN,DIRECT 0.2 MG/DL (0.0-0.2); BILIRUBIN,TOTAL 0.6 MG/DL (0.2-1.0); CALCIUM LEVEL 8.6 MG/DL (8.8-10.2); CREATININE FOR GFR 1.89 MG/DL (0.70-1.30); GLOMERULAR FILTRATION RATE 37.7 (>42); TOTAL PROTEIN 7.3 GM/DL (6.4-8.2)
[2019-01-24 23:45] VITALS: BP 112/57
--- NOTE | 2019-01-25 01:12 | REP ---
Clinical: Dyspnea . Comparison: 01/01/2019 . Findings: The mediastinum and cardiac silhouette are stable and within normal limits for portable technique. The lung sevilla demonstrate chronic stable changes. Previously noted bilateral infiltrates have essentially resolved. No obvious effusion. No pneumothorax. Skeletal structures are intact. Impression: No acute cardiopulmonary process appreciated. Previously noted bilateral infiltrates and effusions have resolved. Electronically Signed by Donnie Torrez MD 01/25/2019 01:03 A
--- NOTE | 2019-01-25 07:23 | ECGEPIP ---
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
== END 2019-01-24 23:57 | disposition home or self-care (01) ==
LOC: EDBD 18:50 → M ED 18:50
DX: N18.9 Chronic kidney disease, unspecified (principal); I50.9 Heart failure, unspecified; I11.0 Hypertensive heart disease with heart failure; D50.9 Iron deficiency anemia, unspecified; E78.5 Hyperlipidemia, unspecified; K21.9 Gastro-esophageal reflux disease without esophagitis; Z95.0 Presence of cardiac pacemaker; Z88.0 Allergy status to penicillin; Z91.040 Latex allergy status; Z79.899 Other long term (current) drug therapy; Z79.01 Long term (current) use of anticoagulants; Z79.891 Long term (current) use of opiate analgesic; Z79.4 Long term (current) use of insulin; Z87.81 Personal history of (healed) traumatic fracture

== ENCOUNTER → 2019-02-19 | Outpatient (CLI) | payer MEDICARE, MEDICAID ==
[~2019-02-19] MED LIST changes: +TRAD5TAB PO
[2019-02-19 10:38] LABS: APPEARANCE, URINE CLEAR (CLEAR); BACTERIA, URINE AUTO 1+ (NEGATIVE); BILIRUBIN, URINE AUTO NEGATIVE (NEGATIVE); BLOOD, URINE BLOOD NEGATIVE (NEGATIVE); COLOR, URINE YELLOW (YELLOW); GLUCOSE, URINE (UA) AUTO NEGATIVE (NEGATIVE); KETONE, URINE AUTO NEGATIVE (NEGATIVE); LEUKOCYTE ESTERASE, URINE AUTO 1+ (NEGATIVE); NITRITE, URINE AUTO NEGATIVE (NEGATIVE); PROTEIN, URINE AUTO NEGATIVE (NEGATIVE); RBC, URINE AUTO 2 /HPF (0-3); SPECIFIC GRAVITY URINE AUTO 1.012 (1.002-1.035); SQUAMOUS EPITHELIAL CELL UR AU 3 /HPF (0-6); UROBILINOGEN, URINE AUTO 0.2 mg/dL (0.0-2.0); WBC, URINE AUTO 13 /HPF (0-3)
[2019-02-19 10:52] LABS: BASO % 0.3 % (0.0-1.0); EOS # 0.1 10^3/uL (0.0-0.50); EOS % 1.9 % (0.0-3.0); HEMATOCRIT 42.9 % (42.0-52.0); HEMOGLOBIN 13.5 g/dl (13.5-17.5); LYMPH # 1.3 10^3/uL (1.5-4.5); LYMPH % 20.4 % (24.0-44.0); MEAN CORPUSCULAR HEMOGLOBIN 27.2 pg (27.0-33.0); MEAN CORPUSCULAR HGB CONC 31.5 g/dl (32.0-36.5); MEAN CORPUSCULAR VOLUME 86.5 fl (80.0-96.0); MONO # 0.4 10^3/uL (0.0-0.8); MONO % 6.5 % (0.0-5.0); NEUTROPHILS # 4.4 10^3/uL (1.8-7.7); NEUTROPHILS % 70.7 % (36.0-66.0); PLATELET COUNT, AUTOMATED 168 10^3/uL (150-450); RED BLOOD COUNT 4.96 10^6/uL (4.30-6.10); WHITE BLOOD COUNT 6.2 10^3/uL (4.0-10.0)
[2019-02-19 11:10] LABS: MAGNESIUM LEVEL 2.1 MG/DL (1.8-2.4); URIC ACID 6.5 MG/DL (3.5-7.2)
[2019-02-19 11:14] LABS: CREATININE, URINE 71.4 MG/DL; MALB URINE SIEMENS 64.1 MG/L; MAU/CREAT RATIO 89.7 MCG/MG (0.0-30.0)
== END ==
LOC: M LAB 09:50
PROVIDERS: ATTEND Internal Medicine Nephrology
DX: N18.3 Chronic kidney disease, stage 3 (moderate) (principal); E11.21 Type 2 diabetes mellitus with diabetic nephropathy

== ENCOUNTER → 2019-02-19 | Outpatient (CLI) | payer MEDICARE, MEDICAID ==
[2019-02-19 11:12] LABS: THYROID STIMULATING HORMONE 11.4 uIU/ML (0.358-3.740)
[2019-02-21 11:16] LABS: FOLATE 10.3 NG/ML
== END ==
LOC: M LAB 09:47
PROVIDERS: ATTEND Psychiatry & Neurology Neurology
DX: E53.8 Deficiency of other specified B group vitamins (principal); E51.9 Thiamine deficiency, unspecified; E83.01 Wilson's disease; E03.9 Hypothyroidism, unspecified

== ENCOUNTER → 2019-02-19 | Outpatient (CLI) | payer MEDICARE, MEDICAID ==
--- NOTE | 2019-02-19 10:47 | REP ---
CT Head without contrast HISTORY: Parkinson's disease COMPARISON: 12/13/2018 Areas of decreased attenuation are present in the periventricular white matter. This represents small-vessel ischemic disease. There is no intraparenchymal hemorrhage, acute infarct, mass or midline shift. The ventricular system and cortical sulci as well as subarachnoid space in the posterior fossa are dilated consistent with mild volume loss. There is no extra cerebral collection. There is no fracture. Mucosal thickening is present in the right ethmoid sinus. IMPRESSION: Small-vessel ischemic disease. 2. Mild volume loss. Electronically Signed by Jose David Burns MD 02/19/2019 10:39 A
--- NOTE | 2019-02-19 11:08 | REP ---
CT LUMBAR SPINE WITHOUT CONTRAST: HISTORY: Back pain. A diffuse disc bulge is present at the L1-2 level. There is minimal compression of the thecal sac. The L1 nerves exit the neural foramina without compression. A diffuse disc bulge is present at the L2-3 level. There is minimal compression of the thecal sac. The L2 nerves exit the neural foramina without compression. A diffuse disc bulge is present at the L3-4 level. There is minimal compression of the thecal sac. There is hypertrophy of the posterior articulating facets. The L3 nerves exit the neural foramina without compression. A diffuse disc bulge is present at the L4-5 level. There is minimal compression of the thecal sac. There is hypertrophy of the posterior articulating facets. The L4 nerves exit the neural foramina without compression. A diffuse disc bulge is present at the L5-S1 level. There is minimal compression of the thecal sac. There is hypertrophy of the posterior articulating facets. There are 8 mm of grade 1 spondylolisthesis of L5 on S1. This is associated with L5 pars defects. There is compression of the L5 nerves in the neural foramina. The lumbar intervertebral discs are decreased in height. Vacuum phenomenon is present at the L2-3 and L5-S1 levels. These findings are consistent with disc degeneration. IMPRESSION: 1. Diffuse disc bulges at the L1-2 through L4-5 levels with minimal thecal sac compression. 2. Diffuse disc bulge at the L5-S1 level with minimal thecal sac compression. There is grade 1 spondylolisthesis of L5 on S1 with associated L5 pars defects. There is compression of the L5 nerves in the neural foramina. Electronically Signed by Jose David Burns MD 02/19/2019 11:14 A
== END ==
LOC: M RAD 10:18
PROVIDERS: ATTEND Psychiatry & Neurology Neurology
DX: I73.9 Peripheral vascular disease, unspecified (principal); M51.36 Other intervertebral disc degeneration, lumbar region; M51.37 Other intervertebral disc degeneration, lumbosacral region; M43.16 Spondylolisthesis, lumbar region; G20 Parkinson's disease; G25.0 Essential tremor; M54.5 Low back pain; E53.8 Deficiency of other specified B group vitamins; E51.9 Thiamine deficiency, unspecified; E83.01 Wilson's disease; E03.9 Hypothyroidism, unspecified; N18.3 Chronic kidney disease, stage 3 (moderate); E11.21 Type 2 diabetes mellitus with diabetic nephropathy

== ENCOUNTER → 2019-02-26 | Outpatient (CLI) | payer MEDICARE, MEDICAID ==
--- NOTE | 2019-03-01 08:06 | SLEEPCENT ---
DATE OF PROCEDURE: 02/26/2019 ORDERING PROVIDER: RODRIGEUZ Carty. Copy to Dr. Levy. INTERPRETATION: Nocturnal polysomnography was performed for the titration of pressure therapy in this patient with severe obstructive sleep apnea syndrome. Apnea-hypopnea index 110.6. For testing the patient was fit with a [employer] full-face mask of small size, 4 cm of water pressure was initially applied to the circuit and the lights were extinguished. 7 hours and 39 minutes of data were reviewed. There were 379.5 minutes of sleep identified. Sleep latency was short at 28 minutes. Rapid eye movement (REM) latency was mildly prolonged at 184 minutes. Sleep architecture improved late in the study. There were two REM cycles noted. Overall sleep efficiency of 84.4%. The electrocardiogram showed sinus rhythm with frequent preventricular contractions (PVCs). Average heart rate 60 beats per minute. EEG showed normal waveforms for awake and sleep. Persistence of respiratory events prompted increases in CPAP pressure. Despite optimal mask fit and minimal air leak, the emergence of central and mixed apneas prompted a change to a bilevel device. Optimal pressure is difficult to identify. The patient did sleep through REM in the supine posture on an inspiratory pressure of 20 over expiratory pressure 16. Additionally some limb activity was registered in the EMG leads. Limb movement arousal index of 5.1. IMPRESSION: Obstructive sleep apnea syndrome (G47.33) RECOMMENDATIONS: Though an optimal pressure therapy is difficult to identify in the test, initiation of a bilevel pressure of inspiratory 20 over expiratory of 16 would appear to be sufficient to address the patient's obstructive respiratory events. Close clinical followup is advised.
== END ==
LOC: M SLEEP 20:00
PROVIDERS: ATTEND Nurse Practitioner Family
DX: G47.33 Obstructive sleep apnea (adult) (pediatric) (principal)

== ENCOUNTER → 2019-04-25 | Outpatient (CLI) | payer MEDICARE, MEDICAID ==
[~2019-04-25] MED LIST changes: -DULO1CAP3 PO; +DULO1CAP6 PO; -OMEP20CA3 PO; +OMEP20CA4 PO; +ZANT150T40 PO; -ZANTTAB PO
--- NOTE | 2019-04-26 10:00 | REP ---
CT OF THE CERVICAL SPINE WITHOUT CONTRAST: REASON FOR EXAM: Cervicalgia. COMPARISON: CT of the cervical spine without contrast of 09/27/2018. TECHNIQUE: Axial CT of the cervical spine was performed without contrast. Bony reformations were provided in the axial, sagittal and coronal planes. FINDINGS: There is no acute fracture or subluxation. There is levoscoliotic curvature of the cervical spine. There are multilevel endplate degenerative changes including disc space narrowing and subchondral cyst formation and marginal spurring, most notably at C4-T1. The spinal canal within normal limits. There is a mucous retention cyst within the right sphenoid sinus. There is asymmetric fullness of the palatine right palatine tonsil. There are vertebral artery calcifications and carotid artery calcifications. Note is made of left-sided anterior chest wall pacer on the director sterile processing image. IMPRESSION: 1. No acute fracture or subluxation within the cervical spine. 2. Moderate multilevel degenerative changes of the cervical spine, most notably at C4-T1. 3. Asymmetric fullness of the right palatine tonsil. Recommend direct visualization to exclude a mass. Electronically Signed by Ivan Karimi MD 04/27/2019 09:13 A
== END ==
LOC: M RAD 14:33
PROVIDERS: ATTEND Psychiatry & Neurology Neurology
DX: M50.321 Other cervical disc degeneration at C4-C5 level (principal); M50.322 Other cervical disc degeneration at C5-C6 level; M50.323 Other cervical disc degeneration at C6-C7 level; M50.33 Other cervical disc degeneration, cervicothoracic region; J35.1 Hypertrophy of tonsils; M54.2 Cervicalgia; M43.02 Spondylolysis, cervical region

== ENCOUNTER 2019-05-07 19:30 | Emergency (ER) | payer MEDICARE, MEDICAID ==
[~2019-05-07] VITALS: Ht 165.1 cm; Wt 105.3 kg
[~2019-05-07 19:30] MED LIST changes: +CHOL100029 PO; -VITAD1000T PO
[2019-05-07] MEDS ORDERED: MORPHINE 4 MG/ML 1ML VIAL/SYRINGE (J2270) IM ONE (19:45)
[2019-05-07 20:31] VITALS: BP 128/56
--- NOTE | 2019-05-08 10:51 | REP ---
Left shoulder four views: There is acromioclavicular osteoarthritis. The glenohumeral joint is unremarkable. There is no fracture or dislocation. No calcifications or foreign bodies. Impression: No fracture or dislocation. Acromioclavicular osteoarthritis. The pacemaker is incidentally noted. Electronically Signed by Sammy Kennedy MD 05/08/2019 08:25 A
== END 2019-05-07 20:35 | disposition home or self-care (01) ==
LOC: M ED 19:30
DX: S46.812A Strain of other muscles, fascia and tendons at shoulder and upper arm level, left arm, initial encounter (principal); M19.012 Primary osteoarthritis, left shoulder; W01.190A Fall on same level from slipping, tripping and stumbling with subsequent striking against furniture, initial encounter; Y92.098 Other place in other non-institutional residence as the place of occurrence of the external cause; Y93.01 Activity, walking, marching and hiking; I48.91 Unspecified atrial fibrillation; E11.22 Type 2 diabetes mellitus with diabetic chronic kidney disease; N18.9 Chronic kidney disease, unspecified; I51.9 Heart disease, unspecified; Z95.0 Presence of cardiac pacemaker; Z88.0 Allergy status to penicillin; Z91.040 Latex allergy status; Z79.899 Other long term (current) drug therapy; Z79.01 Long term (current) use of anticoagulants; Z79.891 Long term (current) use of opiate analgesic; Z79.4 Long term (current) use of insulin
CPT/HCPCS: 73030; 96372; 99284; J2270